=== PATIENT | female | born 1940 | race Two or more races ===

== ENCOUNTER 2018-05-20 11:20 | Emergency (ER) | payer MEDICARE, OTHER, SELFPAY ==
[2018-05-20 11:22] VITALS: BP 151/71; PULSE 64; RESP 16; TEMP 35.6; O2SAT 98; BMI 25.7
--- NOTE | 2018-05-20 11:35 | NURSING ---
NO OLD EKGS
--- NOTE | 2018-05-20 11:51 | ED.RN ---
NO OLD EKG'S IN MUSE
--- NOTE | 2018-05-20 12:13 | EKG12_ITS ---
Test Reason : DIZZINESS Blood Pressure : / mmHG Vent. Rate : 061 BPM Atrial Rate : 061 BPM P-R Int : 118 ms QRS Dur : 086 ms QT Int : 400 ms P-R-T Axes : 007 017 058 degrees QTc Int : 402 ms Normal sinus rhythm Normal ECG Confirmed by HONORIO HODGSON ([id number]), desk editor COOKIE MORENO ([id number]) on 05/24/2018 2:24:53 PM Referred By: TYLER Confirmed By:HONORIO HODGSON
--- NOTE | 2018-05-20 12:15 | ED.VISSUMM ---
- ER Visit Summary Date of Service: 05/20/18 Chief Complaint: Dizziness History of Present Illness: The patient is a 77 F who presents with dizziness for the past 3 days. Patient states this is worse in the morning when she wakes up. Patient states her blood pressure is also elevated in the morning when she wakes up. Patient states her dizziness is worse after she takes her blood pressure medication. Patient states she did have a syncopal episode earlier this week. Patient admits to some nausea but denies any vomiting. Patient admits to some intermittent blurred vision. Patient states her blood pressure medications were changed last week and she believes the dizziness as a result of the new blood pressure medication. Patient has not contacted her primary care physician about this. Physical Examination: Vital signs are stable. Patient is afebrile. Patient is in no acute distress. Oral mucosa is pink and moist. Neck is supple. Trachea is midline. Is no JVD noted. Heart was regular rate and rhythm. Lungs are clear and equal bilateral. There is good respiratory effort noted. Abdomen is soft. Bowel sounds are normal. There is no tenderness noted. Cranial nerves II through XII are intact. There are no focal motor or sensory deficits noted. The remaining physical exam is within normal limits. Test Results: EKG showed sinus rhythm with a rate of 61. There are no acute ST or T-wave changes. CBC, basic metabolic profile, troponin, and urinalysis were obtained and were essentially within normal limits. BUN was slightly elevated at 30. CT scan of the brain was obtained. There is mild atrophy. PA and lateral chest x-ray does not show any acute cardiopulmonary process. Emergency Department Course and Treatment: Patient was given IV fluids here. Patient did have an episode where she sat up and became clammy and diaphoretic. Patient was laid back into bed and started to feel better. Case was discussed with the hospitalist. He recommended stopping the patient's blood pressure medication and following up with her primary care physician in 3-5 days. Patient understands and is agreeable with this plan. Patient wants to go home. Patient and family understood and are agreeable. All questions were answered. Disposition: Discharged home Impression: Dizziness This note was generated with [employer] software. It may contain incorrect words, spelling, and punctuation that were not noted in review of the chart prior to signing ED Disposition - Plan for ED Patient: Disposition: Home or Assisted Living Chief Complaint: Syncope Diagnosis: Dizziness Instructions: ED Dizziness [facility] Referrals: [facility],Out of [Primary Care Provider] -
[2018-05-20 12:25] VITALS: BP 126/32; PULSE 56; RESP 15; O2SAT 97
[2018-05-20 12:36] LABS: Absolute Lymphocyte Count 1.96 X10^3/ul (0.83-4.51); Absolute Neutrophil Count 5.8 X10^3/uL (2.0-7.7); Basophil# 0.01 X10^3/uL; Basophil% 0.1 % (0-1); Eosinophil# 0.14 X10^3/uL; Eosinophils% 1.6 % (0-5); Hematocrit 41.8 % (37-47); Hemoglobin 13.7 g/dl (12.0-15.0); Lymphocyte # 1.96 X10^3/ul (4.0); Mean Corp Hgb Conc 32.8 g/gl (32-36); Mean Corpuscular Hgb 30.1 pg (27.0-32.0); Mean Corpuscular Volume 91.9 fL (81-99); Mean Platelet Vol. 10.2 fl (6.2-12.0); Monocyte# 0.63 X10^3/uL; Monocyte% 7.4 % (0-10); Neutrophil # 5.79 X10^3/uL (2.7-7.7); Neutrophil % 67.8 % (47-70); Platelet Count 226 K/mm3 (150-450); RBC Distribution Width CV 13.2 % (11.6-14.6); RBC Distribution Width SD 43.9 fl (35.1-43.9); Red Blood Count 4.55 M/mm3 (4.2-5.4); White Blood Count 8.5 K/mm3 (4.4-11.0)
[2018-05-20 12:37] LABS: POSITIVE COUNT NO; POSITIVE DIFFERENTIAL NO; POSITIVE MORPHOLOGY NO
[2018-05-20 12:40] LABS: Bedside Glucose 104 mg/dL (70-110)
[2018-05-20 12:52] LABS: Anion Gap 9 (5-15); BUN 30 mg/dL (7-18); BUN/Creat Ratio 31.4 RATIO (10-20); Calcium,Total 9.2 mg/dL (8.5-10.1); Chloride 104 mmol/L (98-107); Creatinine, Serum 0.96 mg/dL (0.55-1.02); EST Glomerular Filtration Rate 60 mL/min (>60); Est Glom Filt Rate - Afr Amer 72 mL/min (>60); Estimated Creatinine Clearance 42.76 ml/min; Glucose 99 mg/dL (74-106); Potassium 4.1 mmol/L (3.5-5.1); Sodium Level 140 mmol/L (136-145)
[2018-05-20 13:10] LABS: Bacteria 0 SEEN /hpf (None Seen); Mucous, Urine 0 SEEN /hpf (<or=2+); Red Blood Cells-Urine 0 SEEN /hpf (0-5); Squamous Epithelial Cells - UA 0 SEEN /hpf (5-10); White Blood Cells 0 SEEN /hpf (0-5)
[2018-05-20 13:13] LABS: Color, Urine Yellow (Yellow); Glucose, Dipstick Normal (Normal); Ketone-Dipstick Negative (Negative); Leukocyte Esterase-Dipstick 25 /ul (Negative); Nitrite-Dipstick Negative (Negative); Occult Blood-Urine Negative /ul (Negative); Protein-Dipstick Negative (Negative); Urine Bilirubin Dipstick Negative (Negative); Urine Clarity Clear (Clear); Urine Urobilinogen Normal (Normal)
[2018-05-20 13:24] VITALS: PULSE 59; RESP 14; O2SAT 97
[2018-05-20 13:44] VITALS: BP 133/53; BP 135/55; BP 147/57; PULSE 54; PULSE 67; PULSE 73
[2018-05-20 14:09] VITALS: BP 111/46; PULSE 62; RESP 9; O2SAT 96
--- NOTE | 2018-05-20 15:56 | NURSING ---
HOSPITALIST FOR DR SANTANA
[2018-05-20 16:41] VITALS: BP 133/50; PULSE 54; RESP 12; O2SAT 98
[2018-05-20] MEDS: 0.9% Normal Saline 1,000 ML 999 ML IV (17:15)
== END 2018-05-20 17:36 | disposition home or self-care (01) ==
PROVIDERS: Emergency Provider Emergency Medicine
DX: R42 Dizziness and giddiness (principal); R68.83 Chills (without fever); H53.8 Other visual disturbances; R11.0 Nausea; I10 Essential (primary) hypertension; Z79.899 Other long term (current) drug therapy
CPT/HCPCS: 70450; 71046; 80048; 81001; 82962; 84484; 85025; 93005; 96360; 99285; J7030

== ENCOUNTER → 2020-09-27 08:24 | Outpatient (CLI) | payer MEDICARE, SELFPAY ==
[2020-09-27 10:10] LABS: Anion Gap 5 (5-15); BUN 18 mg/dL (7-18); BUN/Creat Ratio 17.1 RATIO (10-20); Calcium,Total 9.3 mg/dL (8.5-10.1); Chloride 108 mmol/L (98-107); Cholesterol 295 mg/dL (200); Creatinine, Serum 1.05 mg/dL (0.55-1.02); EST Glomerular Filtration Rate 53 mL/min (>60); Est Glom Filt Rate - Afr Amer 65 mL/min (>60); Glucose 95 mg/dL (74-106); High Density Lipoprotein 60 mg/dL; Potassium 3.8 mmol/L (3.5-5.1); Sodium Level 139 mmol/L (136-145); Triglycerides 236 mg/dL; Very Low Density Lipoprotein 47 mg/dL (5-40)
[2020-09-27 16:07] LABS: Vitamin D,25 Hydroxy 21.5 ng/mL
== END ==
PROVIDERS: PCP Family Medicine; Referring Provider Family Medicine; Visit Provider Family Medicine
DX: Z00.00 Encounter for general adult medical examination without abnormal findings (principal); B89 Unspecified parasitic disease
CPT/HCPCS: 36415; 80048; 80061; 82306; 87177; 87209

== ENCOUNTER → 2020-10-22 13:41 | Outpatient (CLI) | payer MEDICARE, SELFPAY ==
--- NOTE | 2020-10-22 13:45 | BI_ITS ---
MAMMOGRAPHY - BILATERAL SCREENING REASON FOR EXAM: Female, 80 years old. Routine annual screening examination. PERTINENT HISTORY: Non-contributory. TECHNIQUE: Digital bilateral breast ranjeet (3D mammographic acquisition) in the CC and MLO projections. 2-D mediolateral oblique (MLO) and craniocaudad (CC) views of both breasts were obtained. CAD: Full Field Digital Mammography with Computer Added Detection was performed. COMPARISON: Comparison is made with prior outside examination dated 11/25/2016. FINDINGS: Breast Composition: The breasts are heterogeneously dense, which may obscure small masses. There are no dominant masses or suspicious calcifications. No other significant abnormalities are identified. There has been no significant change since the prior study. BI/SCRN MAMM (CAD)W/RANJEET BILAT IMPRESSION: Stable bilateral screening mammogram. Yearly follow-up mammogram recommended. (A) ASSESSMENT CATEGORY: BIRADS Category 1: Negative. A letter regarding these results will be sent to the patient by the facility within 30 days. Approximately 10% of breast cancers are not detected by mammography. A normal mammogram should not delay biopsy of a clinically suspicious abnormality. [id number] Electronically Signed: Anderson Gallegos MD at 13:38 EST , Service support ,
--- NOTE | 2020-10-22 14:09 | BD_ITS ---
STUDY: DUAL ENERGY X-RAY ABSORPTIOMETRY / DXA REASON FOR EXAM: Female, 79 years old. [employer] -- TAKES VITAMINS -- DOES MODERATE AMOUNT OF EXERCISE -- HX OF RIGHT HIP REPLACEMENT -- NELLI OF 2 INCHES TECHNIQUE: Bone Mineral Density (BMD) measurements of lumbar spine and left hip were obtained. COMPARISON: None. FINDINGS: Lumbar Spine (L1-L4): g/cm2 (1.227) / T-score (0.5) / Z-score (2.4) Findings are suggestive of normal bone density with a low fracture risk. Left Femur Total: g/cm2 (0.856) / T-score (-1.2) / Z-score (0.9) Left Femoral Neck: g/cm2 (0.722) / T-score (-2.3) / Z-score (0.0) BD/Dexa Bone Density Study IMPRESSION: The patient is considered osteopenic as outlined below according to World Juan C Organization (WHO) criteria with a moderate fracture risk. Reference Information: The T-score is the number of standard deviations above or below the standard which is normal for young adults at their peak bone mineral density. The World Health Organization (WHO) interprets the T-scores as follows: Above -1 Normal bone density Between -1 and -2.5 Osteopenia Equal to / or below -2.5 Osteoporosis As a practical clinical guideline, osteopenia may be graded as follows: Mild -1 through -1.5 Moderate -1.6 through -2.0 Severe -2.1 through -2.4 The Z-score is the number of standard deviations above or below age-matched controls. A Z-score of less than -1.5 would be considered abnormal. References: 1. NIH Osteoporosis and Related Bone Diseases www osteo.org 2. International Society for Clinical Densitometry www iscd.org 3. National Osteoporosis Foundation www nof.org Electronically Signed: Anderson Gallegos MD at 15:06 EST , Service support ,
== END ==
PROVIDERS: PCP Family Medicine; Referring Provider Family Medicine; Visit Provider Family Medicine
DX: Z12.31 Encounter for screening mammogram for malignant neoplasm of breast (principal); Z91.89 Other specified personal risk factors, not elsewhere classified; Z96.641 Presence of right artificial hip joint; Z78.0 Asymptomatic menopausal state
CPT/HCPCS: 77063; 77067; 77080

== ENCOUNTER 2020-12-18 14:54 | Outpatient (RCR) | payer MEDICARE, SELFPAY ==
[2020-12-18] MEDS: COVID-19 VACC, MRNA(PFIZER)/PF 30 MCG/0.3 ML SYRINGE IM (19:00)
[2021-01-08] MEDS: COVID-19 VACC, MRNA(PFIZER)/PF 30 MCG/0.3 ML SYRINGE IM (11:00)
== END 2021-02-18 23:59 ==
LOC: IMMUN 14:54
PROVIDERS: PCP Family Medicine; Referring Provider Family Medicine; Visit Provider Family Medicine
DX: Z23 Encounter for immunization (principal)
CPT/HCPCS: 0001A; 0002A; 91300

== ENCOUNTER → 2020-12-23 16:27 | Outpatient (CLI) | payer MEDICARE, SELFPAY ==
[2020-12-23 18:02] LABS: Absolute Lymphocyte Count 1.45 X10^3/uL (0.83-4.51); Absolute Neutrophil Count 3.7 X10^3/uL (2.0-7.7); Basophil# 0.01 X10^3/uL; Basophil% 0.2 % (0-1); Eosinophils% 1.8 % (0-5); Hematocrit 38.9 % (37-47); Hemoglobin 12.4 g/dL (12.0-15.0); Lymphocyte # 1.45 X10^3/ul (4.0); Lymphocyte % 25.8 % (19-41); Mean Corp Hgb Conc 31.9 g/dL (32-36); Mean Platelet Vol. 10.7 fl (6.2-12.0); Monocyte# 0.38 X10^3/uL; Monocyte% 6.7 % (0-10); NRBC Flagged by Analyzer 0 % (0-5); Neutrophil # 3.68 X10^3/uL (2.7-7.7); Neutrophil % 65.3 % (47-70); Platelet Count 234 K/mm3 (150-450); RBC Distribution Width CV 12.7 % (11.6-14.6); Red Blood Count 4.14 M/mm3 (4.2-5.4); White Blood Count 5.6 K/mm3 (4.4-11.0)
[2020-12-23 18:28] LABS: BNP,B-Type NATRIURETIC PEPTIDE 78.5 pg/mL (0-100)
[2020-12-23 18:31] LABS: Anion Gap 5 (5-15); BUN 25 mg/dL (7-18); BUN/Creat Ratio 23.6 RATIO (10-20); Calcium,Total 9.3 mg/dL (8.5-10.1); Chloride 104 mmol/L (98-107); Creatinine, Serum 1.06 mg/dL (0.55-1.02); EST Glomerular Filtration Rate 53 mL/min (>60); Est Glom Filt Rate - Afr Amer 64 mL/min (>60); Glucose 161 mg/dL (74-106); Potassium 3.8 mmol/L (3.5-5.1); Sodium Level 139 mmol/L (136-145)
== END ==
PROVIDERS: PCP Family Medicine; Visit Provider Family Medicine
DX: R06.02 Shortness of breath (principal)
CPT/HCPCS: 36415; 80048; 83880; 85025

== ENCOUNTER → 2021-01-17 06:35 | Outpatient (CLI) | payer MEDICARE, SELFPAY ==
--- NOTE | 2021-01-17 07:01 | ECHOD_ITS ---
Version 2 Reason For Study: SOB Procedure This was a 2D Doppler, Color Flow transthoracic echocardiogram. Exam performed in department. Left Ventricle Normal LV size. Left ventricular systolic function is normal. The estimated ejection fraction is 60 %. Stage 1 diastolic dysfunction. No regional wall motion abnormalities noted. Right Ventricle Normal RV size. Normal systolic function. Atria The left atrium is mildly enlarged. Normal right atrium. Mitral Valve There is mild mitral annular calcification. Mild (1+) eccentric mitral valve insufficiency. Tricuspid Valve Normal tricuspid valve. Mild (1+) tricuspid valve insufficiency. Pulmonary artery systolic pressure is 28 mmHg. Aortic Valve Trisinus/trileaflet aortic valve. Mild (1+) aortic valve insufficiency. Great Vessels Normal aortic root. The pulmonary artery is normal size. Normal inferior vena cava. Pericardium/Pleural No pericardial effusion. MMode/2D Measurements & Calculations LVIDd: 4.0 cm IVSd: 1.3 cm LA dimension: 3.8 cm LVIDs: 2.0 cm LVPWd: 0.99 cm RVDd: 3.5 cm FS: 49.5 % LAV(MOD-bp): 55.6 ml LA A4 area: 21.1 cm2 RA A4 area: 11.3 cm2 LAV(MOD-bp) Indexed: 30.1 ml/m2 LAV(MOD-sp2): 51.0 ml LAV(MOD-sp4): 62.7 ml Time Measurements MV dec time: 0.24 sec Doppler Measurements & Calculations MV E max jitendra: 96.5 cm/sec Lat Peak E' Jitendra: 7.5 cm/sec Med Peak E' Jitendra: 4.8 cm/sec MV A max jitendra: 109.5 cm/sec E/E' lat: 12.9 E/E' med: 20.2 MV E/A: 0.88 MV V2 max: 118.4 cm/sec MV P1/2t max jitendra: 93.2 cm/sec Ao V2 max: 144.9 cm/sec MV max P.6 mmHg MV P1/2t: 74.7 msec Ao max P.4 mmHg MV V2 mean: 49.2 cm/sec MV mean P.3 mmHg MV dec slope: 365.2 cm/sec2 MV V2 VTI: 34.5 cm MVA(P1/2t): 2.9 cm2 AI max jitendra: 440.6 cm/sec LV V1 max: 97.6 cm/sec PA V2 max: 95.1 cm/sec AI max P.7 mmHg LV V1 max P.8 mmHg AI dec slope: 222.7 cm/sec2 AI P1/2t: 579.6 msec TR max jitendra: 246.0 cm/sec TR max P.2 mmHg ECHO/Echo Complete Interpretation Summary Normal LV size. Left ventricular systolic function is normal. The estimated ejection fraction is 60 %. The left atrium is mildly enlarged. Mild (1+) eccentric mitral valve insufficiency. Pulmonary artery systolic pressure is 28 mmHg. Mild (1+) aortic valve insufficiency. Stage 1 diastolic dysfunction. Ordering Physician: Geo Gonzalez Referring Physician: Geo Gonzalez Performed By: Ike Mark RCS
--- NOTE | 2021-01-17 12:41 | STRESSREP ---
Stress Test Report Exercise myocardial perfusion stress test. 80-year-old lady with a history of chest pain. Stress protocol: Resting EKG demonstrates sinus bradycardia with a rate of 57 bpm normal intervals are noted resting blood pressure is 152/72 mmHg. The patient exercised according to the regular Orlin protocol for total duration of 4 minutes the patient completed stage II of the Orlin protocol. The maximum heart rate attained was 144 bpm which was 104% of maximum predicted heart rate the maximum workload was 5.8 metabolic equivalents. At rest there were no ST or T wave changes noted to suggest ischemia and at peak exercise upsloping ST changes were noted with did not meet the criteria for ischemia. The test was terminated due to leg discomfort and shortness of breath. The peak blood pressure was 180/50 mmHg. Myocardial perfusion protocol. 11.8 mCi of technetium 99m sestamibi was injected at rest. The patient exercised according to the regular Orlin protocol. At peak exercise 36.0 mCi of technetium 99m sestamibi was injected stress images were obtained stress and rest images were reconstructed and compared in the short axis vertical long and horizontal long axis. Gated images were also obtained. Perfusion SPECT analysis: Review of the stress images demonstrated normal uptake of tracer noted in all areas of the myocardium. The resting images similarly demonstrated normal uptake of tracer noted in all areas of the myocardium. No areas of reversibility are noted to suggest ischemia and no previous infarct is noted. Gated SPECT analysis: The gated ejection fraction is 60%. Conclusion: Normal exercise myocardial perfusion stress test at a low to moderate workload. Preserved ejection fraction.
== END ==
PROVIDERS: PCP Family Medicine; Visit Provider Family Medicine
DX: R06.02 Shortness of breath (principal)
CPT/HCPCS: 78452; 93017; 93306; A9500; A4216

== ENCOUNTER → 2021-06-18 15:45 | Outpatient (CLI) | payer MEDICARE, SELFPAY ==
--- NOTE | 2021-06-18 15:48 | RAD_ITS ---
STUDY: X-RAY - LEFT KNEE REASON FOR EXAM: Female, 80 years old. Pain. TECHNIQUE: 4 view(s) of the knee. COMPARISON: None. FINDINGS: Normal visualized distal femur. Normal visualized proximal tibia and fibula. There is arthrosis of the proximal tibiofibular articulation. There is no acute fracture, dislocation or destructive osseous pathology. There is severe degenerative arthrosis of the medial femorotibial compartment with severe joint space narrowing. There is mild degenerative arthrosis of the lateral femorotibial compartment. There is moderate degenerative arthrosis of the patellofemoral articulation. There is no demonstrated joint effusion. The soft tissue structures are unremarkable. RAD/Knee 4 or More Views IMPRESSION: Degenerative arthrosis. There is no fracture or dislocation. Electronically Signed: Saulo Patterson DO at 16:39 EDT Tel [phone], Service support ,
== END ==
PROVIDERS: PCP Family Medicine; Referring Provider Family Medicine; Visit Provider Family Medicine
DX: M25.562 Pain in left knee (principal)
CPT/HCPCS: 73564

== ENCOUNTER 2021-11-19 11:44 | Outpatient (CLI) | payer MEDICARE, SELFPAY ==
--- NOTE | 2021-11-19 11:53 | RAD_ITS ---
History: SCIATICA EXAMINATION/TECHNIQUE: XR Spine Lumbar Min 4 Views: COMPARISON: None FINDINGS: VERTEBRAE: Preserved vertebral body height. No fracture. No spondylolisthesis. Degenerative changes of the posterior elements. Degenerative dextrocurvature of the upper lumbar spine. DISCS: Degenerative changes are noted. INCLUDED ABDOMEN: Included bowel gas pattern is non-obstructive. Moderate atherosclerotic changes of the abdominal aorta. RAD/L/S Spine Min 4 Views IMPRESSION: Degenerative changes. No acute fracture or spondylolisthesis. at 0233 Reported and signed by: Gerald Michelle MD Electronically Signed: Gerald Michelle MD at 2:32 EST ,
== END 2021-11-19 23:59 | disposition home or self-care (01) ==
LOC: MTRAD 11:47
PROVIDERS: PCP Family Medicine; Referring Provider Family Medicine; Visit Provider Family Medicine
DX: M54.30 Sciatica, unspecified side (principal)
CPT/HCPCS: 72110

== ENCOUNTER 2021-12-31 10:00 | Outpatient (RCR) | payer MEDICARE, SELFPAY ==
--- NOTE | 2021-11-28 08:55 | HP.PTEVAL ---
Patient's Visit Information RADHA PHELPS is a 81 year old F referred to Physical Therapy by Dr. Geo Gonzalez MD with a diagnosis of L knee pain and sciatica.. Date of Evaluation: 11/28/21 Physical Therapist: Devon Lugo, DPT, OCS, CSCS - Visit Plan Frequency: 3x /Week Duration: 2-4 Weeks Plan: 3x/week for 2-4 weeks for. 1. STM and DTR to L piriformis and gluteal area. 2. stretch L piriformis and glutes and ITB. 3. strengthen L hip stabs and NS strengthening. May use TENS and Mh if needed. - Subjective L leg pain starts in back and goes down to lower lateral leg. Knee really hurts this am. This has been going on for about a month and is insidious. Has had injections in knee prior which helped at first and then has not had relief from number two about 15 days ago. The back pain is more familiar and has had it for 20 yrs. Fell a month ago on steps walking in dark and missed a step and rolled down steps. Knee pain started shortly after.Has burning in back of calf at t imes. Feels like balance is OK. Sleep is up alot at night but that is not unusual for her lately. Not employed. Spends day with housework. Sweeper and standing make her pain worse. - Pain L knee Pain Intensity (Out of 10): 1 Pain Intensity Range: 0, 5 LBP Pain Intensity (Out of 10): 1 Pain Intensity Range: 0, 3 - Objective Walks with slightly diminished L WB time but I. Trasnfers I, steps show weakness in L hip stabs causing need to hold and pull on rail L side. Sits with weight off L hip leaning R. L GT, and Piriformis and glut max tender, not on R. LB AROM ext mod limited and painful , flexion min limited, SB min limited and L painful in hip. Hip PROm WFL B slight pain L with ARTI, not FADDIR. reflexes 2/3 patella and achilles B. Sensation LE WNL to gross light touch B. Strenngth is abduction and extension 3/5 L and 3+ R. flexion 4- B. Pain with abd and slightly with extension L. knee strength 4- R flex and ext, L flexion 3+ and ext 4-. Ankle strength 4/5 B. - SLR and - SLUMP but tension on posterior fascia causes pain on L. - Balance/Special Test Scores Functional Gait Assessment Score: 22 % Disability: 26.6700 Lower Extremity Functional Score: 35 - Goals Goal 1:: Sleep without waking at night with pain Goal Time Frame: 2-4 Weeks Goal 2:: Steps pushing up with L without rail and gait without deviations. Goal Time Frame: 2-4 Weeks Goal 3:: Patoient feel 90% b galdino in pain in hip and knee to 1/10 at worst. Goal Time Frame: 2-4 Weeks Goal 4:: LEFS 55/80 Goal Time Frame: 2-4 Weeks Goal 5:: Back to [employer] without increased pain Goal Time Frame: 2-4 Weeks - Rehabilitation Potential Physical Therapy Diagnosis: Pain in L LE possibly from fall and limiting mobility. Rehabilitation Potential: Fair - Anticipated Interventions Patient/Client Instruction: Educate patient on: Condition, Plan of Care For the Purpose of:: To decrease pain, To increase ROM, To increase tolerance to activity/condition/position, To improve ability of physical actions for home/community/work/leisure Therapeutic Exercise to Include: Strength training, Flexibilty training, Gait and locomotor training, Passive ROM, Active ROM For the Purpose of:: To decrease pain, To increase ROM, To improve muscle performance and motor function, To increase tolerance to activity/condition/position, To improve ability of physical actions for home/community/work/leisure Manual Therapy Techniques to Include: Mobilization, Passive ROM, Soft tissue mobilization For the Purpose of:: To improve nutrient delivery to tissue, To improve muscle performance and motor function, To increase tolerance to activity/condition/position TENS: Yes Thermo therapy (hot pack): Yes For the Purpose of:: To decrease pain Thank you for the opportunity to evaluate your patient. For Medicare and Medicare HMO plans, please review the plan of care and approve it. It will need to be FAXED BACK to us at [phone] for Medicare purposes. For Medicare only, by signing this I certify the plan of care. Please let me know if there are questions or concerns regarding this plan of care. Physician Signature: Date:
--- NOTE | 2021-12-31 11:01 | HP.PTDCSUM_ITS ---
It has been my pleasure to treat RADHA PHELPS referred by Dr. Geo Gonzalez MD, with the diagnosis of L knee pain and sciatica. for a total of 11 visit(s). Discharge Date: Please see the following information for a summary of their discharge status. Subjective: Pt reports minimal improvements at this time L knee Pain Intensity (Out of 10): 8 LBP Pain Intensity (Out of 10): 6 % Improvement: 5 Objective/Function: L knee pain ranges from 5-8/10. LBP ranges from 0-6/10. all this still results in sleep difficulty. L knee pain still limits patients ability to negotiate stairs at this time. LEFS 18/80. Pt is back to [employer] class but continues to experience increased pain Goal 1:: Sleep without waking at night with pain Goal Progress: Not Progressing Goal 2:: Steps pushing up with L without rail and gait without deviations. Goal Progress: Not Progressing Goal 3:: Patoient feel 90% b galdino in pain in hip and knee to 1/10 at worst. Goal Progress: Not Progressing Goal 4:: LEFS 55/80 Goal Progress: Not Progressing Goal 5:: Back to [employer] without increased pain Goal Progress: Progressing Plan: Discontinue and RTD If there are questions or concerns regarding this patient's physical therapy, please feel free to call me at [phone]. Thank you for the referral of this patient. Sincerely, Gerald Alegre, PT, ATC Balance/Gait/Functional tests - Balance/Special Test Scores Functional Gait Assessment Score: 22 % Disability: 26.6700 Lower Extremity Functional Score: 18
== END 2021-12-31 12:21 | disposition home or self-care (01) ==
LOC: PT 10:00
PROVIDERS: PCP Family Medicine; Referring Provider Family Medicine; Visit Provider Family Medicine
DX: M25.562 Pain in left knee (principal); M54.32 Sciatica, left side
CPT/HCPCS: 97014; 97110; 97140; 97162; 97164; G0283

== ENCOUNTER → 2022-02-06 | Outpatient (CLI) | payer MEDICARE, SELFPAY ==
--- NOTE | 2022-02-06 14:00 | ART_ITS ---
Reason For Study: LEG PAIN Procedure A bilateral lower extremity continuous wave Doppler with analog waveform analysis,segmental pressures,and ankle brachial indexes with exercise. Left Segmental Pressures Left brachial= 161mmHg. Left posterior tibial artery = 194mmHg. Left dorsalis pedis artery = 188mmHg. The left dorsalis pedis waveforms are triphasic. The left posterior tibial artery waveforms are triphasic. Right Segmental Pressures Right brachial= 166mmHg. Right posterior tibial artery = 203mmHg. Right dorsalis pedis artery = 194mmHg. The right dorsalis pedis waveforms are triphasic. The right posterior tibial artery waveforms are triphasic. Indices The right ankle brachial index by the posterior tibial artery is 1.22. The right ankle brachial index by the dorsalis pedis is 1.17. The right post exercise ankle brachial index is 1.13. The left ankle brachial index by the posterior tibial artery is 1.17. The left ankle brachial index by the dorsalis pedis is 1.13. The left post exercise ankle brachial index is 1.19. VL/Lower Ext Art Exam w/ Exercise Interpretation Summary Triphasic Doppler waveforms are noted at ankle level bilaterally. Resting ankle -brachial indices are normal bilaterally. The patient was ambulated for 3 minutes, following which an kle pressures augmented bilaterally, a normal physiological response. There is no evidence of significant arterial occlusive disease in the lower ext remities bilaterally. Ordering Physician: Geo Gonzalez Referring Physician: Geo Gonzalez Performed By: ABDIAS MONTANO
== END | disposition home or self-care (01) ==
PROVIDERS: PCP Family Medicine; Referring Provider Family Medicine; Visit Provider Family Medicine
DX: M79.606 Pain in leg, unspecified (principal); I79.8 Other disorders of arteries, arterioles and capillaries in diseases classified elsewhere
CPT/HCPCS: 93924

== ENCOUNTER → 2022-11-16 | Outpatient (CLI) | payer MEDICARE, SELFPAY ==
[2022-11-16 17:36] LABS: Absolute Lymphocyte Count 1.31 X10^3/uL (0.83-4.51); Basophil# 0.01 X10^3/uL; Basophil% 0.2 % (0-1); Eosinophils% 2.1 % (0-5); Hematocrit 39.1 % (37-47); Hemoglobin 12.7 g/dL (12.0-15.0); Lymphocyte # 1.31 X10^3/ul (0.83-4.51); Mean Corp Hgb Conc 32.5 g/dL (32-36); Mean Corpuscular Hgb 30.3 pg (27.0-32.0); Mean Corpuscular Volume 93.3 fL (81-99); Mean Platelet Vol. 10.7 fl (6.2-12.0); Monocyte# 0.42 X10^3/uL; Monocyte% 8.6 % (0-10); NRBC Flagged by Analyzer 0 % (0-5); Neutrophil # 3.01 X10^3/uL (2.7-7.7); Neutrophil % 61.9 % (47-70); Platelet Count 242 K/mm3 (150-450); RBC Distribution Width CV 12.3 % (11.6-14.6); RBC Distribution Width SD 42.2 fl (35.1-43.9); Red Blood Count 4.19 M/mm3 (4.2-5.4); White Blood Count 4.9 K/mm3 (4.4-11.0)
[2022-11-16 18:02] LABS: Anion Gap 6 (5-15); BUN 19 mg/dL (7-18); BUN/Creat Ratio 18.1 RATIO (10-20); Calcium,Total 9.8 mg/dL (8.5-10.1); Chloride 103 mmol/L (98-107); Cholesterol 257 mg/dL (200); Creatinine, Serum 1.05 mg/dL (0.55-1.02); EST Glomerular Filtration Rate 53 mL/min (>60); Est Glom Filt Rate - Afr Amer 64 mL/min (>60); Glucose 137 mg/dL (74-106); High Density Lipoprotein 42 mg/dL; Sodium Level 139 mmol/L (136-145); Triglycerides 309 mg/dL; Very Low Density Lipoprotein 62 mg/dL (5-40)
[2022-11-16 18:12] LABS: Vitamin D,25 Hydroxy 32.5 ng/mL
== END | disposition home or self-care (01) ==
LOC: MFPLAB 15:10
PROVIDERS: PCP Family Medicine; Visit Provider Family Medicine
DX: Z00.00 Encounter for general adult medical examination without abnormal findings (principal); E55.9 Vitamin D deficiency, unspecified; R53.81 Other malaise; I10 Essential (primary) hypertension; Z79.899 Other long term (current) drug therapy
CPT/HCPCS: 36415; 80048; 80061; 82306; 85025

== ENCOUNTER → 2022-12-02 | Outpatient (CLI) | payer MEDICARE, SELFPAY ==
--- NOTE | 2022-12-02 10:56 | BD_ITS ---
STUDY: DUAL ENERGY X-RAY ABSORPTIOMETRY / DXA REASON FOR EXAM: Female, 82 years old. [id number] TECHNIQUE: Bone Mineral Density (BMD) measurements of lumbar spine and left hip were obtained. COMPARISON: Comparison is made with prior study of October 22, 2020. FINDINGS: Lumbar Spine (L1-L4): g/cm2 (1.206) / T-score (1.4) / Z-score (4.3) Findings are suggestive of normal bone density with a low fracture risk. Left Femur Total: g/cm2 (0.790) / T-score (-1.3) / Z-score (1.0) Left Femoral Neck: g/cm2 (0.612) / T-score (-2.2) / Z-score (0.2) The T-Scores on the most recent prior examination were: Lumbar Spine (L1-L4): There has been improvement of bone density since the previous examination. Left Femur Total: which represents a worsening of 0.5%. BD/Dexa Bone Density Study IMPRESSION: The patient is considered osteopenic as outlined below according to World Juan C Organization (WHO) criteria with a high fracture risk. There has been worsening of bone density since the previous examination. Reference Information: The T-score is the number of standard deviations above or below the standard which is normal for young adults at their peak bone mineral density. The World Health Organization (WHO) interprets the T-scores as follows: Above -1 Normal bone density Between -1 and -2.5 Osteopenia Equal to / or below -2.5 Osteoporosis As a practical clinical guideline, osteopenia may be graded as follows: Mild -1 through -1.5 Moderate -1.6 through -2.0 Severe -2.1 through -2.4 The Z-score is the number of standard deviations above or below age-matched controls. A Z-score of less than -1.5 would be considered abnormal. References: 1. NIH Osteoporosis and Related Bone Diseases www osteo.org 2. International Society for Clinical Densitometry www iscd.org 3. National Osteoporosis Foundation www nof.org Electronically Signed: Anderson Gallegos MD at 15:06 EDT ,
== END | disposition home or self-care (01) ==
PROVIDERS: PCP Family Medicine; Visit Provider Family Medicine
DX: Z00.00 Encounter for general adult medical examination without abnormal findings (principal); Z78.0 Asymptomatic menopausal state
CPT/HCPCS: 77080

== ENCOUNTER → 2023-02-26 | Outpatient (CLI) | payer MEDICARE, SELFPAY ==
[2023-02-26 12:46] LABS: Anion Gap 7 (5-15); BUN 21 mg/dL (7-18); BUN/Creat Ratio 22.2 RATIO (10-20); Calcium,Total 9.7 mg/dL (8.5-10.1); Chloride 102 mmol/L (98-107); Cholesterol 205 mg/dL (200); Creatinine, Serum 0.95 mg/dL (0.55-1.02); EST Glomerular Filtration Rate 60 mL/min (>60); Est Glom Filt Rate - Afr Amer 72 mL/min (>60); Glucose 101 mg/dL (74-106); High Density Lipoprotein 54 mg/dL; Potassium 4.3 mmol/L (3.5-5.1); Sodium Level 135 mmol/L (136-145); Triglycerides 218 mg/dL; Very Low Density Lipoprotein 44 mg/dL (5-40)
== END | disposition home or self-care (01) ==
LOC: MFPLAB 11:15
PROVIDERS: PCP Family Medicine; Visit Provider Family Medicine
DX: I10 Essential (primary) hypertension (principal)
CPT/HCPCS: 36415; 80048; 80061

== ENCOUNTER 2023-04-09 10:00 | Outpatient (RCR) | payer MEDICARE, SELFPAY ==
--- NOTE | 2023-03-08 10:53 | HP.PTEVAL ---
Patient's Visit Information RADHA PHELPS is a 82 year old F referred to Physical Therapy by GUSTABO LANDA with a diagnosis of L knee stiffness s/p TKA. Date of Evaluation: 03/08/23 Physical Therapist: Devon Lugo DPT, OCS, CSCS - Visit Plan Frequency: 2-3x /Week Duration: 2-4 Weeks Plan: 2-3x/week for 2-4 week to work on. rollout L quad and HS, stretch quad and HS, patellar mobs and PROM L knee flexion progressing home exercises of knee flexion. knee flexion mobs. MH as needed - Subjective Had a L TKA 12/28/22. Doctor said she is doing well but needs a couple weeks of PT. Had home PT and then been doing ex at home. Finishe amonth ago. No real pain. She is stiff in the knee. Activities : pretty normal for her. No steps or problems getting out of chair at home. Sleep is not great, feels stiff in knee but not sure if that is why. Not employed. Basic ADLs are done without a problem. No problem in the shower. 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 Doctor wants to focus on knee ROM. - Objective Walks with very slight L antalgia into PT I. Steps with either foot requiring rail and circumducting L leg to get it up to the next step adn truning sideways to descend with L. L knee 0-88 AROM and 0-90 PROM. Stiffness obvious in L patella vs R especially distal movement. HS tight B moderately, hard to tell on L quad due to knee stiffness. max flexion knee self limited by patient due to pain. ankle and hip aROM WFL and strength at 4/5. knee strength L quad 3+ and HS 4- and R sided at 4 . Sensation LE WNL to gross light touch. Overall very stiff L knee which will limit future options for transfer and steps if required with L. - Balance/Special Test Scores Functional Gait Assessment Score: 27 % Disability: 10.0000 Lower Extremity Functional Score: 48 - Goals Goal 1:: 0-105 AROM to improve stair and chair trasnfers. Goal Time Frame: 2-4 Weeks Goal 2:: Patient I in management of condition. Goal Time Frame: 2-4 Weeks - Rehabilitation Potential Physical Therapy Diagnosis: L knee stiffness limiting stair and trasnfers with L. Rehabilitation Potential: Questionable - Anticipated Interventions Patient/Client Instruction: Educate patient on: Condition, Plan of Care For the Purpose of:: To decrease pain, To increase ROM, To improve muscle performance and motor function, To increase tolerance to activity/condition/position, To improve ability of physical actions for home/community/work/leisure, To improve gait and locomotor functions Therapeutic Exercise to Include: Flexibilty training, Gait and locomotor training, Passive ROM, Active ROM For the Purpose of:: To decrease pain, To increase ROM, To improve nutrient delivery to tissue, To increase tolerance to activity/condition/position Manual Therapy Techniques to Include: Mobilization, Passive ROM, Soft tissue mobilization For the Purpose of:: To increase ROM Thermo therapy (hot pack): Yes For the Purpose of:: To increase ROM Thank you for the opportunity to evaluate your patient. For Medicare and Medicare HMO plans, please review the plan of care and approve it. It will need to be FAXED BACK to us at [phone] for Medicare purposes. For Medicare only, by signing this I certify the plan of care. Please let me know if there are questions or concerns regarding this plan of care. Physician Signature: Date:
--- NOTE | 2023-05-24 07:19 | HP.PTDCSUM ---
Discharge Summary D/C summary: It has been my pleasure to treat RADHA PHELPS referred by GUSTABO LANDA, with the diagnosis of L knee stiffness s/p TKA for a total of 10 visit(s). Discharge Date: Please see the following information for a summary of their discharge status. Subjective Subjective: Pt states she is doing well - no pain, but states she has more muscle soreness in both legs. Mostly compliant with HEP. States she wants to make today her last session. Overall Improvement % Improvement: 100 Objective Objective/Function: Pt conts to do very well in therapy. States she has no ADL or functional limitations because of her knee. States she wants to make today her last session. Reviewed what she is doing at home and advised to cont. LEFS filled out, % improvement captured (100%), and final ROM taken (0-121 degrees). Goals Goal 1:: 0-105 AROM to improve stair and chair trasnfers. Goal 2:: Patient I in management of condition. Plan Plan: Pt wishes to d/c at this time. Reviewed what she is doing at home and advised to cont. Plans to cont her gym program here 3x/week. LEFS filled out, % improvement captured (100%), and final ROM taken (0-121 degrees). D/C Information d/c sentence: If there are questions or concerns regarding this patient's physical therapy, please feel free to call me at [phone]. Thank you for the referral of this patient. Sincerely, Devon Lugo, DPT, OCS, CSCS Balance/Gait/Functional tests Balance/Special Test Scores Functional Gait Assessment Score: 27 % Disability: 10.0000 Lower Extremity Functional Score: 60 Improvement % Improvement: 100
== END 2023-04-09 19:00 | disposition home or self-care (01) ==
LOC: PT 10:00
PROVIDERS: PCP Family Medicine
DX: M25.662 Stiffness of left knee, not elsewhere classified (principal)
CPT/HCPCS: 97110; 97140; 97161

== ENCOUNTER 2023-04-09 16:57 | Emergency (ER) | payer MEDICARE, SELFPAY ==
[2023-04-09 16:58] VITALS: BP 192/80; PULSE 82; RESP 19; TEMP 36.2; O2SAT 97; BMI 28.7
--- NOTE | 2023-04-09 17:20 | ED.RN ---
THIS RN ATTEMPTED TO PLACE C-COLLAR ON PT ALONG WITH Ninoska MEDINA RN. PT STARTED SCREAMING STATING GET THIS OFF OF ME. PT THEN REFUSED C-COLLAR. THIS RN EDUCATED PT THAT NOT PUTTING C-COLLAR ON WOULD INCREASE RISK OF PERMANENT DAMAGE. PT STILL REFUSES.
[2023-04-09 17:28] VITALS: TEMP 36.4; O2SAT 96
[2023-04-09 17:33] VITALS: BP 171/64; PULSE 81; RESP 18; O2SAT 94
--- NOTE | 2023-04-09 17:35 | CT_ITS ---
INDICATION: Neck trauma EXAMINATION: CT CERVICAL SPINE - CT Spine Cervical W/O Contrast Injection TECHNIQUE: Helically acquired images were obtained of the cervical spine. 2D reformatted images were reviewed. A radiation dose optimization technique was used for this scan. IV Contrast dosage and agent: None. RADIATION DOSAGE (If Supplied By Facility): CTDIvol = ( 21.29 ) mGy, DLP = ( 431.88 ) mGycm COMPARISON: None FINDINGS: VERTEBRAE: No fracture or traumatic subluxation. No discrete lytic or blastic abnormality. Normal alignment. Normal craniocervical junction and cervicothoracic junction. DISCS and SPINAL CANAL: Mild degenerative disc and endplate disease throughout the cervical spine. No critical stenosis. NECK SOFT TISSUES: No prevertebral soft tissue swelling. There is no cervical adenopathy. LUNG APICES: Clear. CT/Spine Cervical without Contras IMPRESSION: No evidence of acute cervical spinal fracture or spondylolisthesis. Electronically Signed: Geo Luis MD at 18:21 EDT ,
--- NOTE | 2023-04-09 17:35 | CT_ITS ---
INDICATION: Head trauma EXAMINATION: CT BRAIN - CT Head or Brain W/O Contrast Injection TECHNIQUE: Multiple axial images were obtained of the head without intravenous contrast. A radiation dose optimization technique was used for this scan. IV Contrast dosage and agent: None. RADIATION DOSAGE (If Supplied By Facility): CTDIvol = ( 44.99 ) mGy, DLP = ( 779.24 ) mGycm COMPARISON: None FINDINGS: BRAIN PARENCHYMA: No intra- or extra-axial hemorrhage. No evidence of acute infarct. No intracranial mass or mass effect. There is preservation of the wilkinson/white matter interface. Posterior fossa structures are unremarkable. CSF SPACES: Appropriate for age. No hydrocephalus. Basal cisterns are patent. CALVARIUM, SKULL BASE, PARANASAL SINUSES AND MASTOID AIR CELLS: Right parieto-occipital scalp hematoma. Clear. No discrete lytic or blastic abnormalities. ORBITS: Right ocular lens replacement. Both globes, extraocular muscles, optic nerves and retrobulbar fat appear otherwise unremarkable. ASPECTS Score for Acute Strokes: 10 CT/Brain/Head without Contrast IMPRESSION: Right parieto-occipital scalp hematoma. No acute abnormal intracranial finding. Electronically Signed: Geo Luis MD at 18:16 EDT ,
--- NOTE | 2023-04-09 17:36 | EX.ED.GENINJ ---
HPI History of Present Illness Chief Complaint: Head Injury Informant: patient and family Narrative Narrative: Patient is 82-year-old female with history of hypertension, hyperlipidemia and left knee replacement 2 months ago presenting with a head injury. Patient was taking a nap when she must of rolled out of bed per her daughter and struck her head on the nightstand. She is complaining of pain and swelling to the back of her head as well as some neck pain/shoulder pain. Patient states the fall woke her up and does not think she loss of conscious. Daughter just arrived to the house when this happened. There was no prolonged immobilization she was able to get herself up. She is not on any blood thinners. Daughter does note she is a little unsteady when she got up. She brought her to the emergency room for further evaluation. Patient not have any history of any prior head injuries. Put ice on it prior to arrival but did not take anything for pain. Not complain of any vision changes, numbness or tingling. No speech changes reported. Patient is hard of hearing. No other complaints or concerns at this time. [facility] Medical History Back pain Knee pain Home Medications atorvastatin 20 mg tablet 20 mg PO QHS 05/20/18 [History Last Taken 05/19/18] losartan 100 mg-hydrochlorothiazide 25 mg tablet 1 ea PO DAILY 05/20/18 [History Last Taken 05/20/18] Allergy/AdvReac Type Severity Reaction Status Date / Time codeine AdvReac Nausea/Vom/ Verified 04/09/23 16:58 Diarrhea Social History Smoking Status: Never smoker ROS ROS ED Constitutional Constitutional ED: Denies chills or fever(s) Eyes Eyes: Denies blurry vision or change in vision ENT ENT ED: Denies ear pain or rhinorrhea Gastrointestinal Gastrointestinal: Denies nausea or vomiting Musculoskeletal Musculoskeletal: Reports neck pain and other Details: right shoulder pain Integumentary Reports Abrasions Neurologic Neurologic: Reports headache(s); Denies paresthesias or weakness Psychiatric Psychiatric: Denies anxiety Hematologic/Lymphatic Hematologic/Lymphatic: Denies easy bleeding or easy bruising EXAM Physical Exam Const Vital Signs: 04/09/23 16:58 04/09/23 17:28 04/09/23 17:33 Temperature 97.1 F L 97.5 F L Temperature Source Temporal Pulse Rate 82 81 Respiratory Rate 19 H 18 Respiratory Effort Normal Non-Labored Respiratory Depth Normal Respiratory Pattern Normal Blood Pressure 192/80 H 171/64 H Blood Pressure Mean 117 99 Pulse Ox 97 96 94 Oxygen Delivery Method Room Air Room Air Room Air Positive well nourished and well developed General Appearance ED: well developed and NAD HEENT Reports TM's clear HEENT Narrative: No signs of facial trauma. No hemotympanum or signs of a basilar skull fracture. Patient does have 2 areas of hematoma and tenderness to the occipital scalp. There is no active bleeding or abrasion but there is some associated ecchymosis. Nose: Negative for septum abnormal Tympanic Membrane ED: Yes TM's clear Eyes PERRL and EOMs intact bilaterally Neck full ROM Neck Narrative: No midline tenderness. Mild pain with range of motion. Patient refusing c-collar. Tenderness palpation over the right trapezius region Chest Wall inspection of chest normal Resp normal respiratory effort and clear to auscultation bilaterally Cardio regular rhythm and no murmurs Rate: regular rate GI normal to inspection, nondistended, normoactive bowel sounds Back/Spine normal to inspection and no thoracic nor lumbar tenderness Thoracic Spine / Upper Back: Negative for thoracic spinal tenderness Extremity normal to inspection and full ROM General Extremety ED: Negative for deformity or tenderness General Extremity: Negative for deformity Neuro oriented x3, CN's II-XII intact bilaterally, no focal motor deficits and no sensory deficits noted [place] Coma Scale: document GCS findings Spontaneous Obeys Commands Oriented 15 Sensorium / Orientation: alert Skin Skin Narrative: No active bleeding. 2 small areas of ecchymosis to the posterior scalp MDM MDM MDM Narrative Medical decision making narrative: Patient is evaluated for closed head injury after a fall out of bed. She has no focal neurologic deficits. She does have ecchymosis and cephalhematoma to the parietal occipital scalp on exam. She is complaining of some neck pain and it seems to be more muscle skeletal however due to her age and her significant head injury will obtain a CT of the brain as well as the cervical spine. Patient is given Tylenol and ice for pain control. Patient is able to ambulate in the emergency room to the bathroom. CT of the brain shows right parietal occipital scalp hematoma but there is no acute intracranial findings or skull fracture. CT of the cervical spine shows no acute fracture. Patient does feel slightly improved while in the emergency room. We discharged home with close head injury/concussion instructions. She does note that she has had some mild instability/gait issues for some time now. Likely this is exacerbated by her recent knee surgery. Is encouraged to follow-up with her primary care doctor and they can discuss physical therapy/balance therapy as well. Patient is comfortable taking Tylenol for pain control at home. Given return precautions. Counseled on signs and symptoms of concussion as well as concussion care. Discharged home in stable condition. Radiography Diagnostic Testing: Clinical Impression(s) from Imaging Studies Brain CT 04/09/23 17:35 IMPRESSION: Right parieto-occipital scalp hematoma. No acute abnormal intracranial finding. Electronically Signed: Geo Luis MD at 18:16 EDT , Cervical Spine CT 04/09/23 17:35 IMPRESSION: No evidence of acute cervical spinal fracture or spondylolisthesis. Electronically Signed: Geo Luis MD at 18:21 EDT , Discharge Plan Triage Chief Complaint: Head Injury ED Provider: Lesley Walker Dx/Rx/DC Orders Instructions: ED Concussion, ED Scalp Contusion, ED Head Injury (Adult) Prescriptions: No Action atorvastatin 20 MG tablet 20 mg PO QHS Patient Comments: losartan-hydrochlorothiazide 1 EACH tablet 1 ea PO DAILY Primary Care Provider: Geo Gonzalez Referrals: Geo Gonzalez MD [Primary Care Provider] - Activity Restrictions/Additional Instructions: Take Tylenol as needed for pain. Use ice for the swelling in the back of your head. Return to the ER if you have worsening symptoms or further concerns/further falls. Disposition Disposition: Home, Self Care
[2023-04-09] MEDS: Acetaminophen 325 MG Tablet 650 MG PO (17:47)
[2023-04-09 19:29] VITALS: BP 171/65; PULSE 69; RESP 17; O2SAT 98
== END 2023-04-09 19:30 | disposition home or self-care (01) ==
PROVIDERS: Emergency Provider Emergency Medicine; PCP Family Medicine; Visit Provider Emergency Medicine
DX: S09.8XXA Other specified injuries of head, initial encounter (principal); E78.5 Hyperlipidemia, unspecified; I10 Essential (primary) hypertension; Z96.652 Presence of left artificial knee joint; Z79.899 Other long term (current) drug therapy; W06.XXXA Fall from bed, initial encounter; Y92.019 Unspecified place in single-family (private) house as the place of occurrence of the external cause; S00.03XA Contusion of scalp, initial encounter
CPT/HCPCS: 70450; 72125; 99283

== ENCOUNTER → 2023-06-29 | Outpatient (CLI) | payer MEDICARE, SELFPAY ==
[2023-06-29 15:14] LABS: Absolute Lymphocyte Count 1.05 X10^3/uL (0.83-4.51); Absolute Neutrophil Count 7.4 X10^3/uL (2.0-7.7); Basophil# 0.01 X10^3/uL; Basophil% 0.1 % (0-1); Eosinophil# 0.03 X10^3/uL; Eosinophils% 0.3 % (0-5); Hematocrit 41.4 % (37-47); Hemoglobin 13.2 g/dL (12.0-15.0); Lymphocyte # 1.05 X10^3/ul (0.83-4.51); Lymphocyte % 11.8 % (19-41); Mean Corp Hgb Conc 31.9 g/dL (32-36); Mean Corpuscular Hgb 29.3 pg (27.0-32.0); Mean Platelet Vol. 10.8 fl (6.2-12.0); Monocyte# 0.34 X10^3/uL; Monocyte% 3.8 % (0-10); NRBC Flagged by Analyzer 0 % (0-5); Neutrophil # 7.42 X10^3/uL (2.7-7.7); Neutrophil % 83.6 % (47-70); Platelet Count 254 K/mm3 (150-450); RBC Distribution Width CV 12.6 % (11.6-14.6); RBC Distribution Width SD 42.6 fl (35.1-43.9); White Blood Count 8.9 K/mm3 (4.4-11.0)
[2023-06-29 15:48] LABS: ALB/GLOB Ratio 0.8 RATIO (0.9-2.4); AST(SGOT) 24 U/L (15-37); Alanine Aminotransfer ALT/SGPT 24 U/L (13-56); Albumin, Serum 3.6 g/dL (3.2-5.0); Alkaline Phosphatase 97 U/L (45-117); Anion Gap 6 (5-15); BUN 14 mg/dL (7-18); BUN/Creat Ratio 14.8 RATIO (10-20); CRP < 2.90 mg/L (0.0-3.0); Calcium,Total 9.7 mg/dL (8.5-10.1); Chloride 107 mmol/L (98-107); Creatinine, Serum 0.95 mg/dL (0.55-1.02); EST Glomerular Filtration Rate 60 mL/min (>60); Est Glom Filt Rate - Afr Amer 72 mL/min (>60); Globulin 4.3 g/dL (2.2-4.2); Glucose 139 mg/dL (74-106); Magnesium 2.1 mg/dL (1.6-2.6); Potassium 3.8 mmol/L (3.5-5.1); Protein, Total 7.9 g/dL (6.4-8.2); Sodium Level 139 mmol/L (136-145)
== END | disposition home or self-care (01) ==
LOC: MFPLAB 12:20
PROVIDERS: PCP Family Medicine; Visit Provider Family Medicine
DX: A05.9 Bacterial foodborne intoxication, unspecified (principal)
CPT/HCPCS: 36415; 80053; 83735; 85025; 86140

== ENCOUNTER → 2023-09-09 | Outpatient (CLI) | payer MEDICARE, SELFPAY ==
--- OUTSIDE RECORDS SUMMARY | 2023-09-09 12:04 | XMS RPT_ITS | CCD ---
Author Name Unknown Address [address] [place] [address] Organization [facility] Care Team Providers Care Monument Setter Helper Name Role Phone David Santana Unavailable Unavailable DEBS, DAVID Unavailable Unavailable DEBS, DAVID Unavailable Unavailable GERMAN PEREZ Unavailable Unavailable GERMAN PEREZ Unavailable Unavailable David Santana MD Primary Care Provider David Santana MD Primary Care Provider Huy Gallardo Unavailable Unavailable Geo Granado MD Primary Care Provider Brennan Monsivais MD Unavailable Blake SOIL AND PLANT SCIENTIST.SCRAP BALLER, Dheeraj Unavailable Hayden PT, Kaelyn Unavailable [phone] SORIN COOLEY Referring Unavailable DAVID SANTANA Primary Care Unavailable SORIN COOLEY Referring Unavailable DAVID SANTANA Primary Care Unavailable DHEERAJ LOZANO Referring Unavailable GEO GRANADO Primary Care Unavailable BRENNAN MONSIVAIS Admitting Unavailable MEI, BRENNAN Attending Unavailable GEO GRANADO Primary Care Unavailable JOHN TORRES Consulting Unavailable BRENNAN MONSIVAIS Admitting Unavailable MEI, BRENNAN Attending Unavailable GEO GRANADO Primary Care Unavailable Geo Granado MD Primary Care Provider GEO GRANADO Primary Care Unavailable DHEERAJ LOZANO Attending Unavailable DHEERAJ LOZANO Attending Unavailable GEO GRANADO Primary Care Unavailable MEI, BRENNAN Referring Unavailable DHEERAJ LOZANO Attending Unavailable GEO GRANADO Primary Care Unavailable DHEERAJ LOZANO Attending Unavailable GEO GRANADO Primary Care Unavailable GEO GRANADO Primary Care Unavailable KRISTINE AYON Referring Unavailable GEO GRANADO Primary Care Unavailable KRISTINE AYON Referring Unavailable KRISTINE AYON Referring Unavailable GEO GRANADO Primary Care Unavailable GEO GRANADO Primary Care Unavailable BRENNAN MONSIVAIS Referring Unavailable DAVID SANTANA Primary Care Unavailable BRENNAN MONSIVAIS Attending Unavailable DAVID SANTANA Primary Care Unavailable SORIN COOLEY Attending Unavailable GEO GRANADO Primary Care Unavailable DHEERAJ LOZANO Attending Unavailable Allergies Allergy Classification Reported Allergen(s) Allergy Type Date of Onset Reaction(s) Facility (20 sources) clarithromycin; Translations: [CLARITHROMYCIN] Drug Allergy 02-20-2013 Intolerance [facility] Repository (20 sources) codeine; Translations: [CODEINE] Drug Allergy 08-20-2009 GI Upset [facility] Repository (20 sources) HYDROcodone; Translations: [HYDROCODONE] Drug Allergy 02-20-2013 GI Upset [facility] Repository (20 sources) traMADol; Translations: [TRAMADOL HCL] Drug Allergy 02-20-2013 Intolerance [facility] Repository Medications Current Medications Medication Drug Class(es) Dates Sig (Normalized) Sig (Original) docusate sodium 100 mg oral capsule (9 sources) Start: 12-29-2022 End: 01-29-2023 take 1 capsule by mouth every twelve hours as needed docusate sodium (COLACE) 100 mg capsule Take 1 capsule by mouth twice daily as needed for constipation. 60 capsule 0 12/29/2022 01/29/2023 Active Completed/Discontinued Medications Medication Drug Class(es) Dates Sig (Normalized) Sig (Original) acetaminophen 500 mg oral tablet (12 sources) Start: 12-29-2022 take 2 tablets by mouth every eight hours as needed acetaminophen (TYLENOL) 500 mg tablet Take 2 tablets by mouth every 8 hours as needed for pain. 90 tablet 0 12/29/2022 Active Problems Active Problems Problem Classification Problem Date Documented Date Episodic/Chronic Disorders of lipid metabolism (19 sources) Hypercholesterolemia; Translations: [Pure hypercholesterolemia, unspecified] Onset: 04-22-2011 04-22-2011 Chronic Esophageal disorders (16 sources) Gastroesophageal reflux disease; Translations: [Gastro-esophageal reflux disease without esophagitis] Onset: 12-11-2022 Chronic Essential hypertension (16 sources) Benign essential hypertension; Translations: [Essential (primary) hypertension] Onset: 12-11-2022 Chronic Osteoarthritis (3 sources) Arthritis of knee; Translations: [Unilateral primary osteoarthritis, unspecified knee] Chronic Other connective tissue disease (15 sources) History of repair of hip joint; Translations: [Presence of right artificial hip joint] Onset: 12-11-2022 Chronic Other connective tissue disease (3 sources) History of total knee arthroplasty; Translations: [Presence of left artificial knee joint] Chronic Other connective tissue disease (2 sources) Presence of right artificial knee joint; Translations: [History of right knee joint replacement] Onset: 12-11-2022 Chronic Other connective tissue disease (1 source) Presence of left artificial knee joint; Translations: [S/P total knee arthroplasty, left] Onset: 12-28-2022 Chronic Other connective tissue disease (1 source) Presence of right artificial hip joint; Translations: [History of right hip replacement] Onset: 12-11-2022 Chronic Other nervous system disorders (1 source) Other chronic pain; Translations: [Chronic pain of left knee] Onset: 01-14-2023 Chronic Other non-traumatic joint disorders (3 sources) Arthrofibrosis of left knee; Translations: [Ankylosis, left knee] Chronic Other non-traumatic joint disorders (3 sources) Pain in left knee; Translations: [Pain in joint, lower leg] Onset: 07-17-2022 Episodic Other nutritional; endocrine; and metabolic disorders (12 sources) Obesity; Translations: [Other obesity due to excess calories] Onset: 12-11-2022 Chronic Other nutritional; endocrine; and metabolic disorders (3 sources) Obesity caused by energy imbalance; Translations: [Other obesity due to excess calories] Onset: 12-11-2022 12-11-2022 Chronic Other nutritional; endocrine; and metabolic disorders (1 source) Other obesity due to excess calories; Translations: [Class 1 obesity due to excess calories with serious comorbidity and body mass index (BMI) of 30.0 to 30.9 in adult] Onset: 12-11-2022 Chronic Other nutritional; endocrine; and metabolic disorders (1 source) Body mass index (BMI) 30.0-30.9, adult; Translations: [Class 1 obesity due to excess calories with serious comorbidity and body mass index (BMI) of 30.0 to 30.9 in adult] Onset: 12-11-2022 Chronic Unclassified (1 source) Unknown / UNK(Unknown) Onset: 03-17-2017 Past or Other Problems Problem Classification Problem Date Documented Da te Episodic/Chronic Heart valve disorders (16 sources) Heart murmur; Translations: [Cardiac murmur, unspecified] Onset: 12-11-2022 Episodic Other bone disease and musculoskeletal deformities (17 sources) Osteopenia; Translations: [Other specified disorders of bone density and structure, unspecified site] Onset: 05-12-2011 05-12-2011 Episodic Other connective tissue disease (3 sources) Muscle weakness; Translations: [Muscle weakness (generalized)] Onset: 01-22-2012 01-22-2012 Episodic Results Test Name Value Interpretation Reference Range Facil ity Vital Signs Date Time Vital Sign Value Performing Clinician Faci lity 01-20-2023 14:11-0400 Body temperature 97.81 [degF] Shannan Vikas PROFESSOR OF FAMILY MEDICINE Work Phone: [facility] 01-20-2023 14:11-0400 Diastolic blood pressure 70 mm[Hg] Shannan Vikas PROFESSOR OF FAMILY MEDICINE Work Phone: [facility] 01-20-2023 14:11-0400 Heart rate 75 /min Shannan Vikas PROFESSOR OF FAMILY MEDICINE Work Phone: [facility] 01-20-2023 14:11-0400 Respiratory rate 18 /min Shannan Vikas PROFESSOR OF FAMILY MEDICINE Work Phone: [facility] 01-20-2023 14:11-0400 SaO2% (BldA) [Mass fraction] 97 % Shannan Vikas PROFESSOR OF FAMILY MEDICINE Work Phone: [facility] 01-20-2023 14:11-0400 Systolic blood pressure 120 mm[Hg] Shannan Vikas PROFESSOR OF FAMILY MEDICINE Work Phone: [facility] 01-15-2023 09:00-0400 Body temperature 97.2 [degF] Kaelyn Blake PT Work Phone: [facility] 01-15-2023 09:00-0400 Diastolic blood pressure 74 mm[Hg] Kaelyn Blake PT Work Phone: [facility] 01-15-2023 09:00-0400 Heart rate 83 /min Kaelyn Blake PT Work Phone: [facility] 01-15-2023 09:00-0400 Respiratory rate 18 /min Kaelyn Melton-Nuñez PT Work Phone: [facility] 01-15-2023 09:00-0400 SaO2% (BldA) [Mass fraction] 99 % Kaelyn Melton-Nuñez PT Work Phone: [facility] 01-15-2023 09:00-0400 Systolic blood pressure 164 mm[Hg] Kaelyn Stewartman-Nuñez PT Work Phone: [facility] 01-07-2023 10:15-0400 Body temperature 97.59 [degF] Shannan Vikas PROFESSOR OF FAMILY MEDICINE Work Phone: [facility] 01-07-2023 10:15-0400 Diastolic blood pressure 60 mm[Hg] Shannan Vikas PROFESSOR OF FAMILY MEDICINE Work Phone: [facility] 01-07-2023 10:15-0400 Heart rate 71 /min Shannan Vikas PROFESSOR OF FAMILY MEDICINE Work Phone: [facility] 01-07-2023 10:15-0400 Respiratory rate 18 /min Shannan Vikas PROFESSOR OF FAMILY MEDICINE Work Phone: [facility] 01-07-2023 10:15-0400 SaO2% (BldA) [Mass fraction] 97 % Shannan Vikas PROFESSOR OF FAMILY MEDICINE Work Phone: [facility] 01-07-2023 10:15-0400 Systolic blood pressure 114 mm[Hg] Shannan Vikas PROFESSOR OF FAMILY MEDICINE Work Phone: [facility] 01-01-2023 10:01-0400 Body temperature 98.1 [degF] Kaelyn Melton-Joaquin PT Work Phone: [facility] 01-01-2023 10:01-0400 Diastolic blood pressure 68 mm[Hg] Kaelyn Melton-Nuñez PT Work Phone: [facility] 01-01-2023 10:01-0400 Heart rate 77 /min Kaelyn Melton-Joaquin PT Work Phone: [facility] 01-01-2023 10:01-0400 Respiratory rate 16 /min Kaelyn Blake PT Work Phone: [facility] 01-01-2023 10:01-0400 SaO2% (BldA) [Mass fraction] 99 % Kaelyn Blake PT Work Phone: [facility] 01-01-2023 10:01-0400 Systolic blood pressure 150 mm[Hg] Kaelyn Blake PT Work Phone: [facility] 12-30-2022 12:04-0400 Diastolic blood pressure 76 mm[Hg] Becky Lai PT Work Phone: [facility] 12-30-2022 12:04-0400 Heart rate 74 /min Becky Lai PT Work Phone: [facility] 12-30-2022 12:04-0400 Respiratory rate 20 /min Becky Lai PT Work Phone: [facility] 12-30-2022 12:04-0400 SaO2% (BldA) [Mass fraction] 94 % Becky Lai PT Work Phone: [facility] 12-30-2022 12:04-0400 Systolic blood pressure 140 mm[Hg] Becky Lai PT Work Phone: [facility] 12-30-2022 11:42-0400 Body temperature 97.81 [degF] Becky Lai PT Work Phone: [facility] 12-11-2022 14:59-0400 Body height 160 cm Pacc 1 Work Phone: [facility] 12-11-2022 14:59-0400 Body temperature 97.59 [degF] Pacc 1 Work Phone: [facility] 12-11-2022 14:59-0400 Body weight 77.11 kg Pacc 1 Work Phone: [facility] 12-11-2022 14:59-0400 Diastolic blood pressure 60 mm[Hg] Pacc 1 Work Phone: [facility] 12-11-2022 14:59-0400 Heart rate 76 /min Pacc 1 Work Phone: [facility] 12-11-2022 14:59-0400 Respiratory rate 14 /min Pacc 1 Work Phone: [facility] 12-11-2022 14:59-0400 SaO2% (BldA) [Mass fraction] 95 % Pacc 1 Work Phone: [facility] 12-11-2022 14:59-0400 Systolic blood pressure 118 mm[Hg] Pacc 1 Work Phone: [facility] 07-17-2022 08:51-0400 Body height 162.6 cm Sorin Cooley MD Work Phone: [facility] 07-17-2022 08:51-0400 Body weight 75.3 kg Sorin Cooley MD Work Phone: [facility] Encounters Encounter Date Encounter Type Care Provider Facility Start: 04-27-2023 End: 04-27-2023 ambulatory GEO GRANADO Facility:[facility] Start: 03-30-2023 End: 03-30-2023 ambulatory GEO GRANADO Facility:[facility] Start: 03-30-2023 End: 03-30-2023 Patient encounter procedure Dheeraj Lozano APRN.SCRAP BALLER Work Phone: Orthopaedics Procedures Date Procedure Procedure Detail Performing Clinician Start: 12-11-2022 Antibody screen GEO NUNES Plan of Treatment Date Care Activity Detail Author Start: 12-29-2025 DIABETES SCREEN DIABETES SCREEN [facility] Start: 12-11-2025 DIABETES SCREEN DIABETES SCREEN [facility] Start: 05-14-2023 Influenza vaccination C [facility] Start: 12-11-2022 End: 02-10-2023 Ferritin [Mass/volume] in Serum or Plasma FERRITIN BLD Lab Routine Pre-operative examination Expected: 12/11/2022, Expires: 02/10/2023 [facility] Work Phone: Immunizations Immunization Date Immunization Notes Care Provider Frandy whittaker 03-27-2011 diphtheria and tetan us toxoids, adsorbed for pediatric use Sorin Cooley MD Work Phone: [facility] 03-27-2011 pneumococcal polysaccharide vaccine, 23 valent Sorin Cooley MD Work Phone: [facility] Payers Date Payer Category Payer Medicare [employer] MEDICARE [employer] MEDICARE PPO [id number] 2021-Present [phone] [address] [address] [place] [address] PPO [id number] 2021 Medicare [id number] Unknown [id number] Social History Date Type Detail Facility Start: 07-17-[address] [facility] Never smoked tobacco [facility] Start: 07-17-2022 Tobacco use and exposure Smoke less tobacco non-user [facility] Start: 07-17-2022 End: 12-11-2022 Alcohol intake Current drinker of alcohol (finding) [facility] Start: 07-17-2022 Tobacco Comment No [facility] Start: 03-27-2011 [facility] Start: 1940 Sex Assigned At Not on file [facility] Start: 07-07-2022 End: 07-17-2022 Exposure to SARS-CoV-2 (event) Not sure [facility] Start: 12-11-2022 End: 01-14-2023 History of Social function [facility] Start: 12-11-2022 End: 01-14-2023 Tobacco use panel [facility] National Score (1-10 0), lower number is lower risk 72 [facility] Medical Equipment Procedure Code Equipment Code Equipment Origin al Text Equipment Identifier Dates Head Fem +5mm 36mm Hip - [id number] Start: 11-30-2011 Clinical Notes 09-27-2013 to 04-27-2023 Dheeraj Lozano APRN.SCRAP BALLER - 03/30/2023 12:54 PM EDBernie Lozano APRN.SCRAP BALLER - 03/18/2023 2:52 PM EDTHH PT ROUTINE/REASSESSMENT/RECERT/CASE MGMT - Shannan Bean, PROFESSOR OF FAMILY MEDICINE - 01/20/2023 2:03 PM EDT Note Date & Type Note Facility 04-27-2023 Note HNO ID: [id number] Author: Dheeraj Lozano APRN.CNP Service: ? Author Type: Nurse Practitioner Type: Progress Notes Filed: 04/27/2023 10:11 AM Note Text: This is a follow up appointment for Lety. 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 She reports she is doing well overall. She has no pain. She reports some swelling. Her last ROM was 120. She has no concerns today. Physical exam demonstrates well healed incision. Mild swelling. ROM is 0-120. Ligamentous exam is stable. Lety is 4.5 months out and doing well. She will follow up in with us at 1 year. All questions answered. Dheeraj Lozano APRN.CNP Orthopaedic Surgery [facility] 03-30-2023 Note HNO ID: [id number] Author: Dheeraj Lozano APRN.TORO Service: ? Author Type: Nurse Practitioner Type: Progress Notes Filed: 03/30/2023 1:15 PM Note Text: Mrs. Glover is following up today for s/p left knee FRANCISCO J with Dr. Monsivais on 03/22/23. Pre-op her motion was 0-95. We were able to flex to about 125 degrees post operatively. She reports she has been going to outpatient PT. Her last appointment was yesterday with PT and reports 113 degrees of flexion. She continues to report no pain. She will continue with PT for the next 3 weeks as well as doing exercises on her own. She will follow up at that time and if things continue to progress her next follow up will be at 1 year post op with repeat x-rays. All questions answered Dheeraj Lozano APRN.CNP Orthopaedic Surgery [facility] 03-30-2023 History of Present illness Narrative Mrs. Glover is following up today for s/p left knee FRANCISCO J with Dr. Monsivais on 03/22/23. Pre-op her motion was 0-95. We were able to flex to about 125 degrees post operatively. She reports she has been going to outpatient PT. Her last appointment was yesterday with PT and reports 113 degrees of flexion. She continues to report no pain. She will continue with PT for the next 3 weeks as well as doing exercises on her own. She will follow up at that time and if things continue to progress her next follow up will be at 1 year post op with repeat x-rays. All questions answered Dheeraj Lozano APRN.CNP Orthopaedic Surgery documented in this encounter [facility] 03-18-2023 Note HNO ID: [id number] Author: Dheeraj Lozano APRN.CNP Service: ? Author Type: Nurse Practitioner Type: Progress Notes Filed: 03/18/2023 3:02 PM Note Text: This is a follow up appointment for Mrs. Glover. She was last seen on 02/18/23. She is well known to me having undergone Left TKA on 12/28/22. She continues to do well but does continue to complain of stiffness. She has no pain. She reports she was unable to initially do outpatient PT due to co-pay so she has been doing PT and exercises on her own. Her last documented ROM was 95. I gave he ra medrol dose pack last OV and specifically instructed her to limit other activities and focus on flexion. She did also agree to go to outpatient PT. She has had 2 visits with them and she reports obtaining 100 degrees of flexion yesterday. Physical exam today demonstrates 0-95 in AROM. I am able to get to 100 passively. Her incision is well healed without erythema or drainage. There is minimal swelling. She has no tenderness to palpation. Mrs. Glover and I had a long discussion about treatment options. She continues to have stiffness and does appear to have developed significant scar tissue. She is still active in PT but she has not made much progress being 11 weeks out. I would like for her to pursue left knee FRANCISCO J with Dr. Mosnivais. We discussed risks versus benefits and she wishes to proceed. She is going to discuss with family due to ride availability and if possible will plan for Wednesday03/22/23 or at the latest 03/29/23. Once I hear back we will get this scheduled. Dheeraj Lozano APRN.CNP Orthopaedic Surgery [facility] 03-18-2023 History of Present illness Narrative This is a follow up appointment for Mrs. Glover. She was last seen on 02/18/23. She is well known to me having undergone Left TKA on 12/28/22. She continues to do well but does continue to complain of stiffness. She has no pain. She reports she was unable to initially do outpatient PT due to co-pay so she has been doing PT and exercises on her own. Her last documented ROM was 95. I gave he ra medrol dose pack last OV and specifically instructed her to limit other activities and focus on flexion. She did also agree to go to outpatient PT. She has had 2 visits with them and she reports obtaining 100 degrees of flexion yesterday. Physical exam today demonstrates 0-95 in AROM. I am able to get to 100 passively. Her incision is well healed without erythema or drainage. There is minimal swelling. She has no tenderness to palpation. Mrs. Glover and I had a long discussion about treatment options. She continues to have stiffness and does appear to have developed significant scar tissue. She is still active in PT but she has not made much progress being 11 weeks out. I would like for her to pursue left knee FRANCISCO J with Dr. Monsivais. We discussed risks versus benefits and she wishes to proceed. She is going to discuss with family due to ride availability and if possible will plan for Wednesday03/22/23 or at the latest 03/29/23. Once I hear back we will get this scheduled. Dheeraj Lozano APRN.CNP Orthopaedic Surgery documented in this encounter [facility] 02-19-2023 Note HNO ID: [id number] Author: Dheeraj Lozano APRN.CNP Service: ? Author Type: Nurse Practitioner Type: Progress Notes Filed: 02/19/2023 9:23 AM Note Text: Post-op Office Visit Lety Glover 82 year old February 19, 2023 9:08 AM Surgery Date: 12/28/22 History: Lety Glover Is now 7 weeks out from S/P left TKA. Post-operative course has been without complication. No readmission/complications Subjective: Patient reports no pain at rest. Overall is doing well. Cane ambulatory aid No opioid pain medication She was unable to do outpatient PT due to cost (all out of pocket) She was doing well immediately post operatively Objective: Ambulates with cane Incision well-approximated, no drainage, normal uzair-incisional erythema ROM 0 - 95 (115 pre-op) Distally DP/PT palpable Distally S/S/SP/DP/T intact at baseline Distally DF/EHL/PF intact at baseline Negative romario/calf tenderness Xrays: No new today Assessment and Plan: Lety Glover Is here for a second post-op appointment, overall doing well -continued ice, rest, and use of non-narcotic analgesia as needed -Order placed for outpatient PT and discussed significant emphasis on flexion exercises and to limit other activities. Exercises demonstrated in office -Medrol dose pack for inflammation -WBAT on operative extremity -continue ankle pumps and dvt ppx through 4 weeks -will see back in 3 weeks for ROM check -discussed red flag symptoms of acutely increasing pain, new erythema, new swelling, drainage, shortness of breath Dheeraj Lozano APRN.[facility] Orthopaedic Surgery [facility] 01-20-2023 Miscellaneous Notes SITUATION: only patient present during today's visit. patient reports the following since the last homecare visit: medications/allergies--no changes, no fall. patient reports she has not been able to sleep for 4-5 days because sof knee ache at night. States im really tired, I dont know how much i can do today with therapy. BACKGROUND: Diagnoses (reason for Home Care): LTKR Weight Bearing/Precaution Changes: no changes ASSESSMENT: Focus of visit gait training w/ww, added step flexion stretch x's 10 w/ sec hold. Assisted patient with calling Dr bazan to request refill of pain meds due to patient being very frustrated that she could not get through to anyone, Plan of care, goals, and visit frequency reviewed and agreed upon with patient and/or caregiver. Current Discharge Plan: independent with home exercise program Anticipate discharge by 02/04/23 RECOMMENDATION: Next visit to focus on cane traiining if able See intervention summary for intervention/education details. documented in this encounter [facility] 01-15-2023 Miscellaneous Notes SITUATION: only patient present during today's visit. patient reports the following since the last homecare visit: medications/allergies--no changes, no fall. patient reports that her dtr went home yesterday after taking her to the doctor. Md was pleased with her progress but states she is not ready to drive yet and he does not panchito her walking the distance to the OP center next door as she would have to negotiate a distance though the parking lots and access roads. He would like her to cont home PT a few more weeks unitl she can get herself to OP if insurance will allow . BACKGROUND: Diagnoses (reason for Home Care): LTKR Weight Bearing/Precaution Changes: no changes ASSESSMENT: Focus of visit :REassessment . Minimal edma LLE . Pt reports pain is much better , no longer taking narcotics .this am performed supine and seated and standing strenthening as well as ROM. Encouraged patient to perform 2times/day and hourly walking. AAROM 4-90. Plan of care, goals, and visit frequency reviewed and agreed upon with patient and/or caregiver. Current Discharge Plan: able to transition to OP PT Anticipate discharge by 02/06/23 RECOMMENDATION: Cont 2w3 Next visit to focus on transitioning to cane See intervention summary for intervention/education details. documented in this encounter [facility] 01-14-2023 Note HNO ID: [id number] Author: Dheeraj Lozano APRN.SCRAP BALLER Service: ? Author Type: Nurse Practitioner Type: Progress Notes Filed: 01/14/2023 3:18 PM Note Text: Post-op Office Visit Lety Glover 82 year old January 14, 2023 2:57 PM Surgery Date: 12/28/22 History: Lety Glover Is now 2 weeks out from S/P Left TKA. Post-operative course has been without complication. No readmission/complications Subjective: Patient reports continued pain. Overall is doing well. Walker ambulatory aid Oxycodone opioid pain medication Objective: Ambulates with walker Incision well-approximated, no drainage, normal uzair-incisional erythema ROM 5 - 95 Distally DP/PT palpable Distally S/S/SP/DP/T intact at baseline Distally DF/EHL/PF intact at baseline Negative romario/calf tenderness Xrays: Well-positioned total knee replacement in appropriate alignment with no evidence of loosening Assessment and Plan: Lety Glover Is here for a first post-op appointment, overall doing well -continued ice, rest, and use of non-narcotic analgesia as needed -wean off ambulatory aids -discussed home exercises and therapy -WBAT on operative extremity -continue ankle pumps and dvt ppx through 4 weeks -discussed driving requirement: 4 weeks post-op, off narcotic pain medication, adequate brake time -will see back at 6 week appointment for clinical exam -discussed red flag symptoms of acutely increasing pain, new erythema, new swelling, drainage, shortness of breath Dheeraj Lozano APRN.SCRAP BALLER Orthopaedic Surgery [facility] 01-14-2023 Note HNO ID: [id number] Author: SPEEDY Doran Service: Radiology Author Type: Technologist Type: Progress Notes Filed: 01/14/2023 1:41 PM Note Text: Radiology Service Progress Note PATIENT NAME: Lety Glover DATE OF SERVICE: January 14, 2023 TIME: 1:40 PM PATIENT IDENTITY VERIFICATION COMPLETED USING TWO (2) IDENTIFIERS: Name and Date of confirmed by patient verbally. FALL SCREENING: Has the patient had 2 falls in the last year or 1 fall with injury or currently using an Ambulatory Assistive Device (Walker, Cane, Wheelchair, Crutches, etc.)? Yes, Patient High Risk for Falls What interventions were put in place to prevent falls during this visit? Instructed Patient to Remain Seated (Not on Exam Table) Until Exam and Increased Observations by Caregivers PATIENT GENDER DATA: Female. status: : No status: NO. PATIENT RELEVANT IMPLANT DATA REVIEWED: Not Applicable RADIOLOGY DEPARTMENT: General X-ray: Exam(s) Completed: Lower Extremity X-Ray(s): Knee, AP / Lat / Merchant Left and Wt. Bearing PERIPHERAL IV DATA: Not applicable SIGNED BY: SPEEDY Doran January 14, 2023 1:40 PM [facility] 01-14-2023 History of Present illness Narrative Post-op Office Visit Lety Glover 82 year old January 14, 2023 2:57 PM Surgery Date: 12/28/22 History: Lety Glover Is now 2 weeks out from S/P Left TKA. Post-operative course has been without complication. No readmission/complications Subjective: Patient reports continued pain. Overall is doing well. Walker ambulatory aid Oxycodone opioid pain medication Objective: Ambulates with walker Incision well-approximated, no drainage, normal uzair-incisional erythema ROM 5 - 95 Distally DP/PT palpable Distally S/S/SP/DP/T intact at baseline Distally DF/EHL/PF intact at baseline Negative romario/calf tenderness Xrays: Well-positioned total knee replacement in appropriate alignment with no evidence of loosening Assessment and Plan: Lety Glover Is here for a first post-op appointment, overall doing well -continued ice, rest, and use of non-narcotic analgesia as needed -wean off ambulatory aids -discussed home exercises and therapy -WBAT on operative extremity -continue ankle pumps and dvt ppx through 4 weeks -discussed driving requirement: 4 weeks post-op, off narcotic pain medication, adequate brake time -will see back at 6 week appointment for clinical exam -discussed red flag symptoms of acutely increasing pain, new erythema, new swelling, drainage, shortness of breath Dheeraj Lozano APRN.TORO Orthopaedic Surgery documented in this encounter [facility] 01-07-2023 Miscellaneous Notes SITUATION: only patient present during today's visit. patient reports the following since the last homecare visit: medications/allergies--no changes, no fall. patient reports she is sore but doing ok. Took shower this morning, went well. BACKGROUND: Diagnoses (reason for Home Care): LTKR Weight Bearing/Precaution Changes: no changes ASSESSMENT: Focus of visit performed supine and seated rOM and strength exercuses for HEP. Encouraged patient to perform 2times/day and hourly walking. AAROM 0-74. Discussed OP PT w/ patient. Patienr stated she does not want to go to OP PT because she has a large co pay and cannnot afford it, Plans to discuss w./ Dr Plan of care, goals, and visit frequency reviewed and agreed upon with patient and/or caregiver. Current Discharge Plan: independent with home exercise program Anticipate discharge by TBD RECOMMENDATION: Next visit to focus on add standing hams curl See intervention summary for intervention/education details. documented in this encounter [facility] 01-01-2023 Miscellaneous Notes SITUATION: daughter present during today's visit. patient reports the following since the last homecare visit: medications/allergies--no changes, no fall. patient reports she had a pretty good night. its so swollen though . BACKGROUND: Diagnoses (reason for Home Care): M17.12 Unilateral primary osteoarthritis, left knee s/p ARTHROPLASTY REPLACE JOINT TOTAL KNEE 12/28/2022 Past Medical History: Hypercholesteremia Osteopenia Essential Hypertension, Benign Gerd (Gastroesophageal Reflux Disease) Murmur Class 1 Obesity Due to Excess Calories With Serious Comorbidity and Body Mass Index (Bmi) of 30.0 to 30.9 in Adult History of Right Knee Joint Replacement History of Right Hip Replacement Weight Bearing or Surgical Precautions: falls risk / TKA ASSESSMENT: left knee 0-72 degrees AAROM . Supine ther ex, transfers , and gait Patient Goal: to regain her indep and to have less pain Patient will benefit from continued physical therapy to address the following deficits: strength, balance, gait, left knee joint ROM, transfers and bed mobility. Current Discharge Plan: outpatient rehab. Anticipate discharge by 01/16/23. RECOMMENDATION: . Next visit to focus on bandage removal -bed mobility and transfer training / ROM left knee and strengthening for LE / gait training with walker See intervention summary for intervention/education details. documented in this encounter [facility] 12-30-2022 Miscellaneous Notes SITUATION: daughter present during portion of today's visit. patient and caregiver reports that patient had surgery for left TKA yesterday and was DC home yesterday. She lives in one story apartment alone. Her daughters lives close by and her daughter's friend is also helping with meals / meds. Patient has no pets and her living space is clean and uncluttered. She is typically indep with all ADL and is able to drive and handle meds indep. BACKGROUND: Diagnoses (reason for Home Care): M17.12 Unilateral primary osteoarthritis, left knee s/p ARTHROPLASTY REPLACE JOINT TOTAL KNEE 12/28/2022 Past Medical History: Hypercholesteremia Osteopenia Essential Hypertension, Benign Gerd (Gastroesophageal Reflux Disease) Murmur Class 1 Obesity Due to Excess Calories With Serious Comorbidity and Body Mass Index (Bmi) of 30.0 to 30.9 in Adult History of Right Knee Joint Replacement History of Right Hip Replacement Weight Bearing or Surgical Precautions: falls risk / TKA ASSESSMENT: left knee 0-60 degrees AAROM Patient evaluated by [facility] Homecare physical therapy. Reviewed and explained homecare services. Plan of care, goals, and visit frequency developed, reviewed, and agreed upon with patient and/or caregiver. Patient Goal: to regain her indep and to have less pain Patient will benefit from continued physical therapy to address the following deficits: strength, balance, gait, left knee joint ROM, transfers and bed mobility. Current Discharge Plan: outpatient rehab. Anticipate discharge by 01/16/23. RECOMMENDATION: PT for 2w3 with Kaelyn Blake PT to follow as CM. bandage removal on 01/05/23. Next visit to focus on bed mobility and transfer training / ROM left knee and strengthening for LE / gait training with walker Agreeable to PT; declining NA. See intervention summary for intervention/education details. documented in this encounter [facility] 12-29-2022 Note HNO ID: [id number] Author: Mirela Xiong (White Sugar Pan Tank Operator) Service: Pharmacy Author Type: ? Type: Plan of Care Filed: 12/30/2022 11:03 AM Note Text: PHARMACY BEDSIDE DELIVERY SERVICE Patient Name: Lety Glover The marked outpatient medications were Filled at: [facility] and delivered to the patient's bedside to 272 Medication List START taking these medications acetaminophen 500 mg tablet Commonly known as: TYLENOL Take 2 tablets by mouth every 8 hours as needed for pain. X ascorbic acid (vitamin C) 500 mg tablet Commonly known as: VITAMIN C Take 1 tablet by mouth twice daily with meals for 27 doses. X aspirin, enteric coated 81 mg EC tablet Commonly known as: ASPIRIN, ENTERIC COATED Take 1 tablet by mouth twice daily for 28 days. Replaces: aspirin 81 mg Cap X docusate sodium 100 mg capsule Commonly known as: COLACE Take 1 capsule by mouth twice daily as needed for constipation. X meloxicam 7.5 mg tablet Commonly known as: MOBIC Take 1 tablet by mouth once daily for 14 days. X oxyCODONE IR 5 mg immediate release tablet Commonly known as: ROXICODONE Take 1-2 tablets by mouth every 6 hours as needed for pain. X pantoprazole DR 20 mg tablet Commonly known as: PROTONIX Take 1 tablet by mouth DAILY (6 AM) for 14 days. X polyethylene glycol 3350 17 gram/dose powder Take 1 capful (17 grams) by mouth once daily as needed for constipation for up to 10 days. Dissolve dose in 4 - 8 ounces of liquid and take as directed. X CONTINUE taking these medications amLODIPine 5 mg tablet Commonly known as: NORVASC CALCIUM 300 ORAL multivitamin tablet OMEGA 3 ORAL VITAMIN D3 ORAL VITAMIN E ORAL You might also be taking other medications not listed above. If you have questions about any of your other medications, talk to the person who prescribed them or your Primary Care Provider. STOP taking these medications aspirin 81 mg Cap Replaced by: aspirin, enteric coated 81 mg EC tablet mupirocin 2 % ointment Commonly known as: BACTROBAN Mirela Xiong (Glance) PAGER: [phone] December 30, 2022 11:03 AM [facility] 12-29-2022 Note HNO ID: [id number] Author: John Torres MD Service: General Internal Medicine Author Type: Physician Type: Progress Notes Filed: 12/29/2022 9:56 AM Note Text: INPATIENT CONSULT PROGRESS NOTES Patient Name: Lety Glover DATE of SERVICE: 12/29/22 TIME of SERVICE: 7:20 CONSULTING SERVICE: Medicine Plan of care discussed with: Provider, RN, Patient. INTERVAL HPI: Uneventful night, pain is fairly controlled. Patient seen and examined: Vitals/Meds/Labs/U/O reviewed Alert AND Oriented NO nausea, vomiting NO light headedness, NO shortness of breathe Dry oral mucosa CVS - RRR Lungs - Clear to auscultation Abdomen - soft, Nontender, normal bowel sounds LLE - Ankle No edema RLE - Ankle No edema MEDICATIONS: Current Facility-Administered Medications Medication Dose Route Frequency scopolamine - VERIFY patch OTHER q 8 H scopolamine - REMOVE PATCH OTHER ONCE amLODIPine 5 mg tab(s) (NORVASC) 5 mg ORAL DAILY lactated ringers iv infusion 75 mL/hr INTRAVENOUS CONTINUOUS oxyCODONE IR 5-10 mg tab(s) (ROXICODONE) 5-10 mg ORAL q 4 H PRN HYDROmorphone 0.2 mg injection (DILAUDID) 0.2 mg INTRAVENOUS q 3 H PRN acetaminophen 1,000 mg tab(s) (TYLENOL) 1,000 mg ORAL q 8 H keTORolac 15 mg injection (Toradol) 15 mg INTRAVENOUS q 6 H ondansetron orally disintegrating 4 mg tab(s) (ZOFRAN ODT) 4 mg ORAL q 6 H PRN Or ondansetron (PF) 4 mg injection (ZOFRAN) 4 mg INTRAVENOUS q 6 H PRN polyethylene glycol 3350 17 g packet 17 g ORAL DAILY PRN [START ON 12/30/2022] bisacodyl EC 10 mg tab(s) (DULCOLAX) 10 mg ORAL DAILY aluminum-magnesium hydroxide-simethicone 200-200-20 mg/5 mL 30 mL 30 mL ORAL q 2 H PRN ascorbic acid (vitamin C) 500 mg tab(s) (VITAMIN C) 500 mg ORAL BID w MEALS docusate sodium 100 mg cap(s) (COLACE) 100 mg ORAL BID senna 17.2 mg tab(s) (SENOKOT) 17.2 mg ORAL AT BEDTIME aspirin, enteric coated 81 mg tab(s) 81 mg ORAL BID PHYSICAL EXAM: Patient Vitals for the past 24 hrs: BP Temp Temp src Pulse Resp SpO2 12/29/22 0939 (!) 153/49 -- -- (!) 59 -- -- 12/29/22 0822 (!) 138/49 36.6 ?C (97.9 ?F) Oral 60 16 98 % 12/29/22 0351 (!) 151/47 36.3 ?C (97.3 ?F) Oral (!) 54 16 95 % 12/28/228 135/55 36.6 ?C (97.9 ?F) Temporal Art (!) 55 16 96 % 12/28/22 1925 (!) 127/43 36.6 ?C (97.9 ?F) Oral (!) 57 16 96 % 12/28/22 1608 132/53 36.5 ?C (97.7 ?F) Oral 66 20 96 % 12/28/22 1531 161/64 36.5 ?C (97.7 ?F) Temporal Art 78 16 96 % 12/28/22 1455 124/58 36.4 ?C (97.5 ?F) Axillary 66 16 100 % 12/28/22 1430 154/67 36.5 ?C (97.7 ?F) -- 63 15 97 % 12/28/22 1415 149/66 -- -- 61 14 100 % 12/28/22 1400 138/60 -- -- 64 14 100 % 12/28/22 1348 121/56 36.4 ?C (97.5 ?F) -- -- 13 100 % 12/28/22 1040 -- -- -- 69 20 98 % 12/28/22 1035 199/84 -- -- 70 20 97 % 12/28/22 1030 (!) 201/81 -- -- 69 11 99 % 12/28/22 1025 -- -- -- 71 14 98 % 12/28/22 1020 193/74 -- -- 64 17 98 % There is no height or weight on file to calculate BMI. DATA: CBC: Recent Labs 12/29/22 0546 WBC 10.86 RBC 3.54* HB 10.8* HCT 32.6* PLT 216 MCV 92.1 MCH 30.5 MPV 10.7 Coags: No results for input(s): PT, INR, APTT in the last 24 hours. CMP: Recent Labs 12/29/22 0546 NA 138 K 4.3 CHLOR 103 CO2 28 BUN 18 CREAT 1.06* GLUC 128* CA 8.9 ANION 7* ASSESSMENT AND PLAN: A. OA S/P - Total Knee Unilateral: left,DVT prophylaxis with aspirin Continue PT/OT Hypertension, continue Norvasc Hyperlipidemia currently not on any medication Possible discharge today SIGNATURE: John Torres MD [facility] 12-29-2022 Note HNO ID: [id number] Author: Stephen Hughes PA-C Service: Orthopaedic Surgery Author Type: Physician Oil And Gas Drafter Type: Progress Notes Filed: 12/29/2022 8:05 AM Note Text: POSTOP NOTE ORTHOPAEDIC SURGERY SERVICE DATE: 12/29/2022 SERVICE TIME: 8:04 AM IMPRESSION/PLAN: S/P Procedure(s) (LRB): ARTHROPLASTY REPLACE JOINT TOTAL KNEE (Left) on 12/28/2022 Physical Therapy evaluation WBAT LLE DVT prophylaxis: Intermittent pneumatic compression device (IPCD) and ASA 81 mg BID x 28 days Pain control Case Management for discharge planning Plan of care discussed with: Provider, RN, Patient. Patient Active Hospital Problem List: No active hospital problems. POST OPERATIVE COMPLICATIONS: Complicated by uneventful/none SUBJECTIVE: Patient states that they are comfortable Well Controlled knee pain. Denies incisional pain. OBJECTIVE: VITAL SIGNS: BP (!) 151/47 Pulse (!) 54 Temp 36.3 ?C (97.3 ?F) (Oral) Resp 16 SpO2 95% INTAKE AND OUTPUT: Intake/Output Summary (Last 24 hours) at 12/29/2022 0804 Last data filed at 12/29/2022 0100 Gross per 24 hour Intake 1020 ml Output 1400 ml Net -380 ml LABS: Hemoglobin Date Value Ref Range Status 12/29/2022 10.8 (L) 11.5 - 15.5 g/dL Final 12/11/2022 12.9 11.5 - 15.5 g/dL Final Hematocrit Date Value Ref Range Status 12/29/2022 32.6 (L) 36.0 - 46.0 % Final 12/11/2022 39.0 36.0 - 46.0 % Final Platelet Count Date Value Ref Range Status 12/29/2022 216 150 - 400 k/uL Final 12/11/2022 252 150 - 400 k/uL Final WBC Date Value Ref Range Status 12/29/2022 10.86 3.70 - 11.00 k/uL Final 12/11/2022 5.50 3.70 - 11.00 k/uL Final Creatinine Date Value Ref Range Status 12/29/2022 1.06 (H) 0.58 - 0.96 mg/dL Final 12/11/2022 1.15 (H) 0.58 - 0.96 mg/dL Final Potassium Date Value Ref Range Status 12/29/2022 4.3 3.7 - 5.1 mmol/L Final 12/11/2022 4.4 3.7 - 5.1 mmol/L Final VTE Prophylaxis: Active VTE Risk Category Order: 12/28/22 1500 VTE RISK CATEGORY: SURGICAL HIGH RISK ([place], [place]) Active VTE Medication Orders: Anticoagulant AND Antiplatelet Medications (From admission, onward) Start Dose Route Frequency Last Action Ordered Stop 12/29/22 0900 aspirin, enteric coated 81 mg tab(s) (Surgical Risk Categories) 81 mg ORAL 2 TIMES DAILY Ordered 12/28/22 1457 -- Active VTE Prophylaxis Orders: 12/28/22 1500 PNEUMATIC COMPRESSION STOCKINGS ([place], [place]) 12/28/22 1500 ACTIVITY - MOBILIZE PATIENT ([place], [place]) PHYSICAL EXAMINATION: Left Lower Extremity: Dorsalis pedis pulses palpable. Posterior tibial pulses palpable. Dorsi flexion 5/5. Plantar flexion 5/5. Extensor hallucis extension: 5/5. Sensory intact to light touch L1-S1. Dressing clean, dry, and intact. Surgical site no drainage and Silverlon intact. Thigh is not swollen, calf is not tender, no signs of DVT or infection Problem Review and Assessment: Skin and Abdominal Wall: Patient monitored, no new events overnight Cardiovascular and Vascular: Patient monitored, no new events overnight Respiratory: Patient monitored, no new events overnight Endocrine and Metabolic: Patient monitored, no new events overnight Gastrointestinal: Patient monitored, no new events overnight Genitourinary and Nephrology: Patient monitored, no new events overnight Behavioral, Cerebrovascular and Nervous: Patient monitored, no new events overnight Infectious: Patient monitored, no new events overnight DATA: Diagnostic tests reviewed for today's visit: Most recent labs and imaging results. SIGNATURE: Stephen Hughes PA-C PATIENT NAME: Lety Glover DATE: December 29, 2022 TIME: 8:04 AM The patient has undergone major orthopedic surgery and participating in therapy. Pain cannot be managed within an average of 30 MED per day. Patient requiring average of higher than 30 MED per day in order to control pain and allow patient to actively and safely participate in therapy and this is the lowest dose consistent with patient's medical condition. Non-narcotic medication options have been discussed. In addition, the patient has been advised of the benefits and risks of the opioid (including the potential for addiction). Patient demonstrated understanding of risks versus benefits. [facility] 12-28-2022 Note HNO ID: [id number] Author: Jack Suárez APRN.CRNA Service: Anesthesiology Author Type: Nurse Dietary Services Director Type: Anesthesia Procedure Notes Filed: 12/28/2022 11:38 AM Note Text: ANESTHESIOLOGY PROCEDURE NOTE Spinal Block General Information Procedure Start Time/Medication Administration: 12/28/2022 11:18 AM Patient location during procedure: OR Timeout Performed Pre-procedure: timeout performed Consent Obtained: Yes Patient identity confirmed: arm band and patient Reason for Block: primary surgical anesthetic Staffing E LEARNING SPECIALIST: Jack Suárez APRN.E LEARNING SPECIALIST Performed by: E LEARNING SPECIALIST Preparation Sterility Preparation: hand hygiene performed prior to procedure, sterile gloves, drapes, and procedure tray, gown used during line insertion, surgical cap used, mask used, sterile drape used during line insertion, skin prep agent completely dried prior to procedure Sterility Technique Not Completely Performed Due to Extreme Emergency: Yes Site Prep: Betadine Procedure Details Patient Position: sitting Ultrasound Guided: No Monitoring: Pulse Ox and NIBP Location: L3-4 Injection Technique: single-shot Needle Needle Type: pencil-tip Needle Gauge: 22 G Needle Length: 3.5 in Assessment Events: tolerated well SIGNATURE: Jack Suárez APRN.E LEARNING SPECIALIST PATIENT NAME: Lety Glover DATE: December 28, 2022 TIME: 11:37 AM CSN: [id number] [facility] 12-28-2022 Note HNO ID: [id number] Author: Batsheva Proctor MD Service: Anesthesiology Author Type: Anesthesiologist Type: Anesthesia Procedure Notes Filed: 12/28/2022 10:32 AM Note Text: ANESTHESIOLOGY PROCEDURE NOTE Peripheral Nerve Block General Information Procedure Start Time/Medication Administration: 12/28/2022 10:22 AM Procedure End time: 12/28/2022 10:31 AM Patient location during procedure: induction room Timeout Performed Pre-procedure: timeout performed Consent Obtained: Yes Patient identity confirmed: arm band and patient Reason for block: post-op pain management/at surgeon's request Staffing Anesthesiologist: Batsheva Proctor MD Performed by: anesthesiologist Preparation Sterility Preparation: hand hygiene performed prior to procedure, sterile gloves, drapes, and procedure tray, surgical cap used, mask used, sterile drape used during line insertion, skin prep agent completely dried prior to procedure Site Prep: Chloraprep Pre-Procedure Neuro Exam Location: LLE Sensory: intact Motor: intact Procedure Details Patient Position: supine Monitoring: Pulse OX, EKG and NIBP Block Type Lower Extremity: distal femoral (adductor canal) Laterality: left Injection Technique: single-shot Ultrasound Guided: Yes Image in Chart: yes Local Infiltration: Yes Needle Needle Type: echogenic Needle Gauge: 22 G Needle Length: 100 mm Needle Localization: ultrasound Assessment Injection assessment: negative aspiration, no paresthesia on injection, incremental injection and local visualized surrounding nerve on ultrasound Post-Procedure Neuro Exam Expected Regional Anesthesia: Yes Medications Administered dexamethasone sodium phosphate injection (DECADRON) - peripheral nerve block 4 mg - 12/28/2022 10:22:00 AM Comments 0.5% bupivacaine 20 ml SIGNATURE: Batsheva Proctor MD PATIENT NAME: Lety Glover DATE: December 28, 2022 TIME: 10:22 AM CSN: [id number] [facility] 12-11-2022 Instructions Kristine Ayon APRN.CNP - 12/11/2022 3:15 PM EDT PATIENT PREOPERATIVE INSTRUCTIONS Brennan Monsivais MD has scheduled you for your procedure at this surgery center: [facility]: [phone] -- [address] [address]. Please read below carefully for your personalized instructions. Dietary Restrictions: - No solid food after midnight. - You may have 12 ounces of clear liquids (water, clear juices such as apple juice or gatorade, carbonated beverages, clear tea, black coffee, jello) until 2 hours before scheduled arrival at facility. No red/purple coloring and no creamer/sugar Medications: Unless instructed differently below, stay on all of your medications until your surgery. Approved medications to take the morning of surgery with a sip of water: amLODIPine (NORVASC) If you start any new medications after today's visit, please contact the surgeon's office. Blood Thinning Medications: - Stop NSAIDS (Ibuprofen, Advil, Aleve, Motrin, Celebrex, Mobic, etc.) 7 days before surgery, as directed by your surgeon. - Stop Aspirin 7 days before surgery, as directed by your surgeon. - Stop Vitamin E, ALL multi-vitamins, herbals and dietary supplements 7 days before surgery. - You may take Tylenol (Acetaminophen) or any of your pain medications that do not contain aspirin or NSAIDS as needed. Important Reminders: - Candy, mints, gum and tobacco products are NOT permitted the morning of surgery. - Hearing aids, dentures and glasses may be worn the morning of surgery. - NO jewelry, body piercings, makeup, hairpins or contacts are to be worn the day of surgery. If you develop symptoms such as a fever, cold, or flu, or have other changes to your health within TWO DAYS of scheduled surgery or the morning of surgery, please contact the surgery center above. Personal Belongings: -Please have photo ID and insurance cards. -If you do not have a copy of advance directives on file with us, please bring a copy with you on the day of surgery. - Leave ALL valuables and money at home or with family members. For Outpatient Procedures: - YOU MUST HAVE A RESPONSIBLE CIRCUIT BREAKER MECHANIC TAKE YOU HOME. A PILLOWCASE CUTTER OR FACTORY HELPER CANNOT BE MADE A RESPONSIBLE CIRCUIT BREAKER MECHANIC. - We recommend that a responsible person stays with you overnight to take care of you. - You cannot stay in a hotel alone after outpatient surgery. You will not be permitted to have your surgery, if you do not have someone to take care of you. Arrival Time for Surgery: - The Surgery Center or hospital where you are having surgery will call the afternoon before surgery (or Wednesday for Wednesday surgery) with a scheduled arrival time. - If you have not heard by 4 pm, please contact the surgery center above. Please be aware that emergency situations arise, which may delay or change your surgical time. If this happens, we will notify you as soon as possible and regret any inconvenience. If you already have an Advance Directive, please fax a copy to [phone] or email to for it to be added to your chart. If you do not have an Advance Directive, you can find the appropriate form and more information at [email or web address]. We recommend that you complete the Advance Directive form found on the website and bring it with you the day of your surgery. It can be witnessed and scanned into your chart that day. Kristine Ayon APRN.TORO documented in this encounter [facility] 12-11-2022 History and physical note HISTORY AND PHYSICAL EXAMINATION SERVICE DATE: 12/11/2022 SERVICE TIME: 3:44 PM PRIMARY CARE PHYSICIAN: Geo Granado MD REASON FOR VISIT: Lety Glover is a 82 year old female who is scheduled for Procedure(s): ARTHROPLASTY REPLACE JOINT TOTAL KNEE (Left) at the request of Dr. Brennan Monsivais for consultation. My final recommendation will be communicated back to the requesting physician by way of shared medical record or letter. Subjective The patient has the following: ACTIVE PROBLEM LIST Hypercholesteremia Osteopenia Essential Hypertension, Benign Gerd (Gastroesophageal Reflux Disease) Murmur Class 1 Obesity Due to Excess Calories With Serious Comorbidity and Body Mass Index (Bmi) of 30.0 to 30.9 in Adult History of Right Knee Joint Replacement History of Right Hip Replacement COVID-19 Immunization Status Overdue - COVID-19 VACCINE (3 - Booster for Pfizer series) Overdue since 03/05/2021 01/08/2021 Imm Admin: COVID-19 original vaccine, age 12+ yr, monovalent (PFIZER-BIONTECH - PURPLE TOP) 12/18/2020 Imm Admin: COVID-19 original vaccine, age 12+ yr, monovalent (PFIZER-BIONTECH - PURPLE TOP) CHIEF COMPLAINT: Pre-op exam HPI: Lety Glover is a 82 year old seen for PAC due to scheduled above surgery because of OA left knee. 08/28/2022, Dr. Monsivais HPI: Lety Glover is a 81 year old patient here for evaluation and management of left knee pain. Lety Glover has had progressive problems with the knee(s) most of the day over the past 5 year(s) interfering with activities which include exercise, walking, rising from a sitting position, and standing for prolonged periods of time. The problem began limiting activities 1-3 years ago. Currently the pain in the joint is rated at 6 out of 10 with minimal activity. The pain is constant and is located along the outside aspect, in the front, and in the back. The pain is described as aching. Relieving factors include rest and repositioning. There is no specific incident that brought about this pain. Lety Glover also complains of referred pain, stiffness, and locking. FUNCTIONAL STATUS: Climb a flight of stairs or walk up a hill (5.50 METs) Total Joint Arthroplasty: Risk Calculator Lety Glover has a 35.73% chance of NOT returning home at discharge for a Primary total Knee replacement. Lety's estimated Length of Stay is 2 days. Lety's 30 day chance of readmission is 7.16%. Readmission Probability 7.16 % (within 30 days following surgery) Estimated LOS 2 days Discharge Disposition Probability D/C to Home 64.27 % D/C to SNF 35.73 % These calculations are based on the following factors: - 81 years of age - sex is not male - BMI of 28 kg/m2 - NarxCare score of 0 - 0 hospitalizations in the last 12 months - no history of heart disease - no history of diabetes - no history of COPD - no history of anemia - preoperative ambulation: impaired community distances - 0 step(s) to enter home - bed location is on the first floor - bath location is on the first floor - caregiver is inconsistent - home is not more than 150 miles away - PROMIS-10 Mental Health T score not available - Marital status: PREVIOUS TREATMENTS: Medical Treatments: Steroid Injections Left Knee Physical Therapy: Use of Ambulatory Aid, Shoe Wear, Braces, Orthotics, etc., and Activities Modified REVIEW OF SYSTEMS: General: No weight loss, malaise or fevers. Neurological: No history of TIA's, stroke, DAIRY HUSBANDRY WORKER tumor, impaired sensorium, hemiplegia, paraplegia or quadraplegia. No neurological symptoms or problems. Respiratory: No history of current cough or dyspnea, or pneumonia in the past 6 weeks. No history of respiratory/pulmonary symptoms or problems. Cardiovascular: Positive for: hypertension (on rx) Negative for: anticoagulation therapy, arrhythmia, atrial fibrillation, CAD, chest pain, CHF, congenital heart defect, DVT/PE, hyperlipidemia, recent AR, murmur/valvular heart disease, open heart surgery and valve surgery. GI: Positive for: GERD (otc rx as needed) Negative for: abdominal pain, dysphagia, hepatitis, irritable bowel syndrome, inflammatory bowel disease, liver disease, nausea, pancreatitis, vomiting and ETOH >2 drinks/day. : No history of dysuria, frequency or incontinence, stones or chronic kidney disease. No difficulty urinating, nocturia > 1 time per night or hematuria. BIOSTATISTICIAN: Negative for abnormal vaginal bleeding, abnormal vaginal discharge. Endocrine: No history of diabetes. Has not taken steroids within the past 30 days. No history of endocrinological symptoms or problems. Hematology: Positive for: chronic anti-coagulation/platelet meds. Patient is on anti-coagulation/platelet medication(s): Aspirin. Negative for: anemia, bruises/bleeds easily and transfusion of at least 4 units within 72 hours prior to surgery. Oncology: No history of CA metastasis, chemo within 30 days, or radiotherapy within 90 days. No history of oncological symptoms or problems. Psych: No history of psychiatric symptoms or problems. Musculoskeletal: See HPI. +hx right hip/knee replacement Positive for: back pain. Skin: Negative for lesions, rash and itching. PAST MEDICAL HISTORY Diagnosis Date Essential hypertension Hyperlipidemia PAST SURGICAL HISTORY Procedure Laterality Date ARTHRP ACETBLR/PROX FEM PROSTC AGRFT/ALGRFT Right 11/2011 Hip replacement, total ARTHRP KNE CONDYLE&PLATU MEDIAL&LAT COMPARTMENTS Right 2006 Knee replacement, total NONE tubal preg OPEN REPAIR OF ROTATOR CUFF ACUTE Right Rotator cuff repair TOTAL ABDOMINAL HYSTERECT W/WO RMVL TUBE OVARY Hysterectomy, NIMA FAMILY HISTORY Problem Relation Age of Onset None Father Social History Tobacco Use Smoking status: Never Smokeless tobacco: Never Tobacco comments: No Vaping Use Vaping Use: Never used Substance Use Topics Alcohol use: Yes Comment: rarely Drug use: No Prior to Admission medications as of 12/11/22 1523 Medication Sig Last Dose Taking amLODIPine (NORVASC) 5 mg tablet Take 5 mg by mouth once daily. Taking Yes aspirin 81 mg cap Take by mouth. Taking Yes cholecalciferol, vitamin D3, (VITAMIN D3 ORAL) Take by mouth. Taking Yes VITAMIN E ORAL Take by mouth once daily. Taking Yes CALCIUM CARBONATE (CALCIUM 300 ORAL) Take by mouth. Taking Yes OMEGA-3 FATTY ACIDS (OMEGA 3 ORAL) Take by mouth. Taking Yes multivitamin ORAL tablet Take 1 tablet by mouth once daily. Taking Yes mupirocin (BACTROBAN) 2 % ointment Apply 0.5 inch with cotton swab (Q-tip) to each nostril in the morning and evening for 5 days prior to and including day of surgery. Medication Comments documented by Bronwyn (Hist) Swetha Dueñas RN on 10/14/2012 at 0644. glucosamine chondroitin/fish oil/garlic Occuvite daily for vision. HELD VITAMINS FOR A WEEK ALLERGIES Allergen Reactions Codeine GI Upset Severe vomiting Tramadol Hcl Intolerance Severe vomiting. Clarithromycin Intolerance Severe headache Hydrocodone GI Upset Objective PHYSICAL EXAM: General: alert and oriented (x3), healthy appearance and obese. Pertinent negatives noted - not distressed. Skin: normal color, no rash or lesions. HEENT: EOM intact and pupils equal round. Pertinent negatives noted - no carotid bruit. Cardiovascular: regular rate and rhythm, normal S1 and S2, no rub, murmurs, or gallop. Respiratory: normal breath sounds, no wheezes or crackles. No chest wall deformity or tenderness. Abdomen: soft. Pertinent negatives noted - not tender. Extremities: no deformity, no edema or tenderness, no joint swelling or clubbing. Neurological: normal cognition and motor skills. Gait normal. No weakness or sensory deficit. PAIN ASSESSMENT: Pain Pain Level: 6 Pain Location: Knee-Left Description: Sharp, Aching Duration Amount of Time: 2 Duration Units: Years Frequency: Intermittent Intervention/Comfort measure: Relaxation VITALS: BP 118/60 Pulse 76 Temp (Src) 97.6 (Temporal) Resp 14 Ht 5' 3 (1.60m) Wt 170 lb (77.1kg) SpO2 95% BMI 30.12 kg/(m^2). Diagnostic tests reviewed for today's visit: Lab Value Units Date High Low HB No results within date range. HCT No results within date range. WBC No results within date range. PLT No results within date range. NA No results within date range. K No results within date range. GLUC No results within date range. BUN No results within date range. CREAT No results within date range. PTSEC No results within date range. INR No results within date range. APTT No results within date range. ALT No results within date range. AST No results within date range. TBILI No results within date range. TSH No results within date range. Lab Value Units Date High Low HCGQT No results within date range. UHCG No results within date range. HCG, BODY* No results within date range. Lab Value Units Date High Low ABORHD No results within date range. ABSCREEN No results within date range. No results found for: HBA1C Recent Results (from the past 8760 hour(s)) ECG COMPLETE Collection Time: 12/11/22 3:10 PM Result Value Ventricular Rate 69 Atrial Rate 69 P-R Interval 130 QRS Duration 82 QT Interval 398 QTC Calculation (Bazett) 426 Calculated P [place] -2 Calculated R [place] 26 Calculated T [place] 63 Impression NORMAL SINUS RHYTHM NORMAL ECG No results found for this or any previous visit (from the past 89424 hour(s)). Assessment Patient has the following medical conditions which may affect uzair-operative course: Essential hypertension, benign Assessment: controlled on rx Last 14 BP Last 14 Encounter BP Readings: Date: BP: 12/11/2022 118/60 03/12/2017 158/58[map 84[ 03/09/2017 136/63 02/20/2013 124/64[true bp (from Extended Vitals)[ 02/13/2013 178/76 02/03/2013 132/78 01/23/2013 162/78 01/18/2013 132/80 12/21/2012 155/67 12/19/2012 136/65 09/26/2012 153/69 09/16/2012 128/78 08/01/2012 146/66 07/25/2012 126/78 Hypercholesteremia Assessment: diet controlled GERD (gastroesophageal reflux disease) Assessment: otc rx as needed Murmur Assessment: echo ordered Class 1 obesity due to excess calories with serious comorbidity and body mass index (BMI) of 30.0 to 30.9 in adult Assessment: Body mass index is 30.11 kg/m . History of right knee joint replacement Assessment: hx History of right hip replacement Assessment: hx Gil Activity Status Index: METS: Climb a flight of stairs or walk up a hill (5.50 METs) DASI Score: 5.5 Patient denies any chest pain or undue shortness of breath with the above physical activity. Clinical Frailty Scale: 3. Well, with treated comorbid disease STOP-Bang Score: Snores loudly Has or is being treated for high blood pressure Patient over 50 years old Has a large neck Denies feeling tired, fatigued, or sleepy during the daytime Has not been observed to stop breathing or choking/gasping during sleep BMI less than or equal to 35 kg/m^2 Non-male patient STOP-Bang Score: 4 [id number] Score: Age: >=75 Sex: female CHF history: No Hypertension history: Yes Stroke/TIA/thromboembolism history: No Vascular disease history: No Diabetes history: No [id number] Score: 4 ARISCAT Score: Age: >80 Preoperative SpO2: 91-95% Respiratory infection in the last month: No Preoperative anemia: Yes Surgical incision: peripheral Duration of surgery: 2-3 hrs Emergency procedure: No ARISCAT Score: 51 ASA Class: 3 ANESTHESIA FINDINGS: Intubation History: No history of difficult intubation Significant Anesthesia Considerations: none Airway History: No history of difficult airway I - PHYSICAL EVALUATION AIRWAY Patient intubated: No. Tracheostomy tube not present Mallampati: III. TM distance: >3 FB. Neck ROM: full ROM without neurological symptoms. Mouth opening: adequate. Short neck: no. Thick neck: yes Gustafson present: no Lip Bite Test: III Microretrognathia/Micronagthia/Re cessed Chin: No DENTAL Dental findings: teeth intact. II - ANESTHESIA PLAN ASA Score: 3 Anesthetic Plan: other Anesthetic plan additional comments: *PACC/TCI - anesthesia choice. Beta Mychal Monitoring Plan Post Procedure Analgesic Plan Informed Consent Anesthetic risks, benefits, alternatives, personnel and consent discussed: yes. Patient / Responsible Constitution Party agrees to proceed: yes Patient / Surrogate agrees to blood products: Yes Prepared for Surgery: optimally prepared for surgery, pending [see comment]. Labs, EKG, and echo CONSULTS: Patient does not require consults for optimization at this time Planned Anesthetic: other anesthesia choice The Following Tests/Procedures Have Been Initiated: Orders Placed This Encounter CBC with Differential Standing Status: Future Standing Expiration Date: 02/10/2023 CMP Standing Status: Future Standing Expiration Date: 02/10/2023 IRON + TIBC Standing Status: Future Standing Expiration Date: 02/10/2023 FERRITIN BLD Standing Status: Future Standing Expiration Date: 02/10/2023 Type and Screen, 30 day Standing Status: Future Standing Expiration Date: 02/10/2023 amLODIPine (NORVASC) 5 mg tablet Sig: Take 5 mg by mouth once daily. aspirin 81 mg cap Sig: Take by mouth. cholecalciferol, vitamin D3, (VITAMIN D3 ORAL) Sig: Take by mouth. mupirocin (BACTROBAN) 2 % ointment Sig: Apply 0.5 inch with cotton swab (Q-tip) to each nostril in the morning and evening for 5 days prior to and including day of surgery. Dispense: 22 g Refill: 0 perflutren lipid microspheres 1.3 mL in NaCl (PF) 0.9% 10 mL injection (DEFINITY) sodium chloride 0.9 % (flush) 10 mL (BD POSIFLUSH) ECG COMPLETE Order Comments: Ordered by an unspecified provider ECG COMPLETE Standing Status: Future Number of Occurrences: 1 Standing Expiration Date: 12/12/2023 ECHO Standing Status: Future Standing Expiration Date: 12/12/2023 Order Specific Question: Disease / Condition: Answer: Murmur - initial evaluation when reasonable suspicion of valvular or structural heart disease Instructions Given to Patient: Instructions located in the after visit summary. Patient given verbal and written preop instructions and voices comprehension and compliance. SIGNATURE: Kristine Ayon APRN.CNP PATIENT NAME: Lety Glover DATE: December 11, 2022 TIME: 3:06 PM PAGER/CONTACT #: documented in this encounter [facility] 12-08-2022 Miscellaneous Notes TOTAL JOINT COMPLETE CARE PROGRAM PRE-OPERATIVE TEACHING Service D/ate: 12/16/2022 Service Time: 11:33 AM Date of : 1940 Gender: female Date of Surgery: 12/28/22 Procedure: Left Total Knee Replacement Complete Care Program was discussed with the patient: Packaging Technician Identification: Patient identified a after school caregiver to help when discharged to home: lives alone. Doesn't have anyone then states her daughter works 6 days a week. Home Environment: Home Layout: Apartment, Entry Steps: 0, Bedroom Location: 1st floor, Bathroom Location: 1st floor, and walk in shower and tub shower. Pt owns walker, cane. Discussed with patient importance of attending joint education class and provided date and times of class: YES declined. Patient received Joint Education Binder: Yes Patient plans to go to rehab upon discharge. She states she discussed this with the doctor since she lives alone. I explained that is not a qualification for insurance to cover rehab and discussed HHC options and how the process works. SIGNATURE: KAILEE Landry PATIENT NAME: Lety Glover DATE: December 08, 2022 TIME: 11:14 AM documented in this encounter [facility] 08-18-2022 Note HNO ID: [id number] Author: Brennan Monsivais MD Service: ? Author Type: Physician Type: Progress Notes Filed: 08/18/2022 9:02 AM Note Text: CONSULT ORTHOPAEDIC: KNEE PRIMARY CARE PHYSICIAN: David Santana MD REFERRING PROVIDER: No referring provider defined for this encounter. ASSESSMENT AND PLAN Impression: This is a very nice 81-year-old woman who was referred to me by my partner Dr. Sorin Cooley. He previously did a right total hip and a right total knee on her, and she is incredibly happy with the results of these. She now has left knee severe osteoarthritis. She has tried a brace. She has tried injections. She has tried therapy. At this point she is considering joint replacement. She has some stuff going on at home with selling her house, and is a little bit on the fence about timing. I have discussed risks and benefits of operative versus nonoperative treatment with her at length, expected recovery times, and possible complications. She understands these well. She will call the office when she would like to see us again, and that point she may be considering knee replacement but for now would like to put it on hold. All questions answered today. I spent a total of approximately 25 minutes on the date of the service which included preparing to see the patient, [id number] patient care, completing clinical documentation, obtaining and/or reviewing separately obtained history, performing a medically appropriate examination, counseling and educating the patient/family/caregiver, ordering medications, tests, or procedures, independently interpreting results (not separately reported), communicating results to the patient/family/caregiver, and care coordination (not separately reported). The patient has been ordered: No orders placed today. CONSULTS: Patient does not require consults for optimization at this time. ACTIVE PROBLEM LIST Hypercholesteremia Osteopenia Muscle Weakness (Generalized) SUBJECTIVE CHIEF COMPLAINT: Knee Pain HPI: Lety Glover is a 81 year old patient here for evaluation and management of left knee pain. Lety Glover has had progressive problems with the knee(s) most of the day over the past 5 year(s) interfering with activities which include exercise, walking, rising from a sitting position, and standing for prolonged periods of time. The problem began limiting activities 1-3 years ago. Currently the pain in the joint is rated at 6 out of 10 with minimal activity. The pain is constant and is located along the outside aspect, in the front, and in the back. The pain is described as aching. Relieving factors include rest and repositioning. There is no specific incident that brought about this pain. Lety Glover also complains of referred pain, stiffness, and locking. FUNCTIONAL STATUS: Climb a flight of stairs or walk up a hill (5.50 METs) Total Joint Arthroplasty: Risk Calculator Lety Glover has a 35.73% chance of NOT returning home at discharge for a Primary total Knee replacement. Lety's estimated Length of Stay is 2 days. Lety's 30 day chance of readmission is 7.16%. Readmission Probability 7.16 % (within 30 days following surgery) Estimated LOS 2 days Discharge Disposition Probability D/C to Home 64.27 % D/C to SNF 35.73 % These calculations are based on the following factors: - 81 years of age - sex is not male - BMI of 28 kg/m2 - NarxCare score of 0 - 0 hospitalizations in the last 12 months - no history of heart disease - no history of diabetes - no history of COPD - no history of anemia - preoperative ambulation: impaired community distances - 0 step(s) to enter home - bed location is on the first floor - bath location is on the first floor - caregiver is inconsistent - home is not more than 150 miles away - PROMIS-10 Mental Health T score not available - Marital status: PREVIOUS TREATMENTS: Medical Treatments: Steroid Injections Left Knee Physical Therapy: Use of Ambulatory Aid, Shoe Wear, Braces, Orthotics, etc., and Activities Modified REVIEW OF SYSTEMS: PAIN ASSESSMENT: See HPI. MUSCULOSKELETAL: See HPI. Risk Factors for Total Joint Arthroplasty (TJA) Obesity normal High: BMI > 40 Moderate: BMI 30-40 Normal: BMI < 30 Diabetes normal High: A1C > 8 Moderate: A1C 7-8 Normal: A1C < 7 Smoking normal High: Current smoker Normal: Non smoker Anemia normal High: Hgb < 11.5 (women) N/A: Hgb >= 11.5 (women) Nutritional Status normal High: Alb<3.4, or prealb<15, or serum transferrin<200, or total lymphocyte count<1500 Normal: normal labs COPD normal High: dx of COPD Normal: no dx of COPD MRSA normal High: dx of MRSA or positive lab test Normal: no MRSA CKD normal High: eGFR<60 Moderate: eGFR 60-89 Normal: eGFR>90 Hx of DVT / PE normal High: dx of DVT / PE Normal: no dx of DVT / PE Narcotics Use normal High:NarxCare >=300 Moderate: 100-299 Normal: 0 (more content not included)... [facility] 08-18-2022 History of Present illness Narrative CONSULT ORTHOPAEDIC: KNEE PRIMARY CARE PHYSICIAN: David Santana MD REFERRING PROVIDER: No referring provider defined for this encounter. ASSESSMENT & PLAN Impression: This is a very nice 81-year-old woman who was referred to me by my partner Dr. Sorin Cooley. He previously did a right total hip and a right total knee on her, and she is incredibly happy with the results of these. She now has left knee severe osteoarthritis. She has tried a brace. She has tried injections. She has tried therapy. At this point she is considering joint replacement. She has some stuff going on at home with selling her house, and is a little bit on the fence about timing. I have discussed risks and benefits of operative versus nonoperative treatment with her at length, expected recovery times, and possible complications. She understands these well. She will call the office when she would like to see us again, and that point she may be considering knee replacement but for now would like to put it on hold. All questions answered today. I spent a total of approximately 25 minutes on the date of the service which included preparing to see the patient, [id number] patient care, completing clinical documentation, obtaining and/or reviewing separately obtained history, performing a medically appropriate examination, counseling and educating the patient/family/caregiver, ordering medications, tests, or procedures, independently interpreting results (not separately reported), communicating results to the patient/family/caregiver, and care coordination (not separately reported). The patient has been ordered: No orders placed today. CONSULTS: Patient does not require consults for optimization at this time. ACTIVE PROBLEM LIST Hypercholesteremia Osteopenia Muscle Weakness (Generalized) SUBJECTIVE CHIEF COMPLAINT: Knee Pain HPI: Lety Glover is a 81 year old patient here for evaluation and management of left knee pain. Lety Glover has had progressive problems with the knee(s) most of the day over the past 5 year(s) interfering with activities which include exercise, walking, rising from a sitting position, and standing for prolonged periods of time. The problem began limiting activities 1-3 years ago. Currently the pain in the joint is rated at 6 out of 10 with minimal activity. The pain is constant and is located along the outside aspect, in the front, and in the back. The pain is described as aching. Relieving factors include rest and repositioning. There is no specific incident that brought about this pain. Lety Glover also complains of referred pain, stiffness, and locking. FUNCTIONAL STATUS: Climb a flight of stairs or walk up a hill (5.50 METs) Total Joint Arthroplasty: Risk Calculator Lety Glover has a 35.73% chance of NOT returning home at discharge for a Primary total Knee replacement. Lety's estimated Length of Stay is 2 days. Lety's 30 day chance of readmission is 7.16%. Readmission Probability 7.16 % (within 30 days following surgery) Estimated LOS 2 days Discharge Disposition Probability D/C to Home 64.27 % D/C to SNF 35.73 % These calculations are based on the following factors: - 81 years of age - sex is not male - BMI of 28 kg/m2 - NarxCare score of 0 - 0 hospitalizations in the last 12 months - no history of heart disease - no history of diabetes - no history of COPD - no history of anemia - preoperative ambulation: impaired community distances - 0 step(s) to enter home - bed location is on the first floor - bath location is on the first floor - caregiver is inconsistent - home is not more than 150 miles away - PROMIS-10 Mental Health T score not available - Marital status: PREVIOUS TREATMENTS: Medical Treatments: Steroid Injections Left Knee Physical Therapy: Use of Ambulatory Aid, Shoe Wear, Braces, Orthotics, etc., and Activities Modified REVIEW OF SYSTEMS: PAIN ASSESSMENT: See HPI. MUSCULOSKELETAL: See HPI. Risk Factors for Total Joint Arthroplasty (TJA) Obesity normal High: BMI > 40 Moderate: BMI 30-40 Normal: BMI < 30 Diabetes normal High: A1C > 8 Moderate: A1C 7-8 Normal: A1C < 7 Smoking normal High: Current smoker Normal: Non smoker Anemia normal High: Hgb < 11.5 (women) N/A: Hgb >= 11.5 (women) Nutritional Status normal High: Alb<3.4, or prealb<15, or serum transferrin<200, or total lymphocyte count<1500 Normal: normal labs COPD normal High: dx of COPD Normal: no dx of COPD MRSA normal High: dx of MRSA or positive lab test Normal: no MRSA CKD normal High: eGFR<60 Moderate: eGFR 60-89 Normal: eGFR>90 Hx of DVT / PE normal High: dx of DVT / PE Normal: no dx of DVT / PE Narcotics Use normal High:NarxCare >=300 Moderate: 100-299 Normal: 0-99 JOSE normal High: dx of JOSE N/A: no dx of JOSE Coagulation normal High:PT Sec>13, or PT INR>1.3, or APTT>32.4, or Plt ct<150k Moderate: on anticoag but none of the above Normal: none Other Risk Factors None PAST MEDICAL HISTORY Diagnosis Date Hyperlipidemia PAST SURGICAL HISTORY Procedure Laterality Date ARTHRP ACETBLR/PROX FEM PROSTC AGRFT/ALGRFT Right 11/2011 Hip replacement, total ARTHRP KNE CONDYLE&PLATU MEDIAL&LAT COMPARTMENTS Right 2006 Knee replacement, total NONE tubal preg OPEN REPAIR OF ROTATOR CUFF ACUTE Right Rotator cuff repair TOTAL ABDOMINAL HYSTERECT W/WO RMVL TUBE OVARY Hysterectomy, NIMA FAMILY HISTORY Problem Relation Age of Onset None Father Social History Tobacco Use Smoking status: Never Smokeless tobacco: Never Tobacco comments: No Substance Use Topics Alcohol use: Yes Comment: rarely Drug use: No ALLERGIES: Codeine, Tramadol Hcl, Clarithromycin, and Hydrocodone MEDICATIONS: VITAMIN E ORAL Take by mouth once daily. CALCIUM CARBONATE (CALCIUM 300 ORAL) Take by mouth. OMEGA-3 FATTY ACIDS (OMEGA 3 ORAL) Take by mouth. multivitamin ORAL tablet Take 1 tablet by mouth once daily. PHYSICAL EXAM: There were no vitals taken for this visit. All other systems deferred. GENERAL: Appears healthy, well-nourished, no deformities. HABITUS: Normal GAIT: Antalgic to the left KNEE EXAM: Left: Alignment: Varus deformity, Partially Correctable Range of motion is 5 degrees in extension and 120 degrees of flexion. Extension La degrees Pain with ROM: Yes Effusion: Slight Tender to the palpation of Medial femoral condyle, Lateral femoral condyle, Medial joint line, and Lateral joint line Pain with patellar compression: Yes Stability: Anterior/Posterior stable and Varus/Valgus stable Hip Exam: flexion to 100+ degrees, full extension, internal/external rotation adequate, and no pain with log roll Neurovascular Status: Sensation Intact, Moves foot and ankle up & down, and 2+ dorsalis pedis DATA: Diagnostic tests reviewed for today's visit: Left knee X-Ray: Severe tri-compartmental degeneration The following conditions were addressed during the office visit today: none SIGNATURE: Brennan Monsivais MD PATIENT NAME: Lety Glover DATE: August 18, 2022 TIME: 8:32 AM documented in this encounter [facility] 07-17-2022 Note HNO ID: [id number] Author: Sorin Cooley MD Service: ? Author Type: Physician Type: Progress Notes Filed: 07/17/2022 9:28 AM Note Text: [facility] Department of Orthopedics Sorin Cooley MD FACS 81-year-old female here today regarding her left knee. She is undergone successful right total knee and right total hip by me in the past that resolved. She is here for increasing left knee pain. She has received a couple of cortisone injections by another provider they no longer work. She states she cannot walk 2 blocks without discomfort. In the house it does not seem to bother her. Current Outpatient Medications Medication Sig VITAMIN E ORAL Take by mouth once daily. CALCIUM CARBONATE (CALCIUM 300 ORAL) Take by mouth. OMEGA-3 FATTY ACIDS (OMEGA 3 ORAL) Take by mouth. multivitamin ORAL tablet Take 1 tablet by mouth once daily. No current facility-administered medications for this visit. ACTIVE PROBLEM LIST Hypercholesteremia Osteopenia Muscle Weakness (Generalized) PAST SURGICAL HISTORY Procedure Laterality Date ARTHRP ACETBLR/PROX FEM PROSTC AGRFT/ALGRFT Right 11/2011 Hip replacement, total ARTHRP KNE CONDYLEANDPLATU MEDIALANDLAT COMPARTMENTS Right 2006 Knee replacement, total NONE tubal preg OPEN REPAIR OF ROTATOR CUFF ACUTE Right Rotator cuff repair TOTAL ABDOMINAL HYSTERECT W/WO RMVL TUBE OVARY Hysterectomy, NIMA PAST MEDICAL HISTORY Diagnosis Date Hyperlipidemia FAMILY HISTORY Problem Relation Age of Onset None Father Social History Tobacco Use Smoking status: Never Smokeless tobacco: Never Tobacco comments: No Substance Use Topics Alcohol use: Yes Comment: rarely Drug use: No ALLERGIES Allergen Reactions Codeine GI Upset Severe vomiting Tramadol Hcl Intolerance Severe vomiting. Clarithromycin Intolerance Severe headache Hydrocodone GI Upset REVIEW OF SYSTEMS General: NO fever, NO chills, NO night sweats Constitutional:NO recent unwanted weight loss, NO excessive weight Skin: NO rashes, NO chronic skin condition Head: NO seizures, NO headaches, NO dizziness Respiratory: NO cough Cardiovascular: NO chest pain Gastrointestinal: NO nausea, NO vomiting, NO abdominal painEndocrine: NO thyroid problems, NO heat intolerance Musculoskeletal: see HPI Neurologic: no numbness or tingling in extremities Examination: 81-year-old female no acute distress. Alert and oriented x3. 5 feet 4 inches tall 166 pounds. Examination reveals swelling around the knee range of motion is full extension with flexion 95 degrees with a fixed varus alignment. Radiologic review: X-rays ordered by me and to my interpretation shows severe arthritis of the knee. Impression: Left knee arthritis #2 left knee varus. We discussed other injection therapies but the patient has declined. She is interested in discussing total knee replacement. We are going to refer her to Dr. Brennan Monsivais At the conclusion of the office visit, the patient was asked if they had any questions regarding the diagnosis or care. Also, ample time was provided for the patient to ask any questions regarding the diagnosis therefore plan of care. All the patient's questions if asked were answered to their satisfaction. This note was partially generated using [employer] voice recognition system and as such may contain grammatical or word errors Sorin Cooley MD [facility] 07-17-2022 History of Present illness Narrative [facility] Department of Orthopedics Sorin Cooley MD FACS 81-year-old female here today regarding her left knee. She is undergone successful right total knee and right total hip by me in the past that resolved. She is here for increasing left knee pain. She has received a couple of cortisone injections by another provider they no longer work. She states she cannot walk 2 blocks without discomfort. In the house it does not seem to bother her. Current Outpatient Medications Medication Sig VITAMIN E ORAL Take by mouth once daily. CALCIUM CARBONATE (CALCIUM 300 ORAL) Take by mouth. OMEGA-3 FATTY ACIDS (OMEGA 3 ORAL) Take by mouth. multivitamin ORAL tablet Take 1 tablet by mouth once daily. No current facility-administered medications for this visit. ACTIVE PROBLEM LIST Hypercholesteremia Osteopenia Muscle Weakness (Generalized) PAST SURGICAL HISTORY Procedure Laterality Date ARTHRP ACETBLR/PROX FEM PROSTC AGRFT/ALGRFT Right 11/2011 Hip replacement, total ARTHRP KNE CONDYLE&PLATU MEDIAL&LAT COMPARTMENTS Right 2006 Knee replacement, total NONE tubal preg OPEN REPAIR OF ROTATOR CUFF ACUTE Right Rotator cuff repair TOTAL ABDOMINAL HYSTERECT W/WO RMVL TUBE OVARY Hysterectomy, NIMA PAST MEDICAL HISTORY Diagnosis Date Hyperlipidemia FAMILY HISTORY Problem Relation Age of Onset None Father Social History Tobacco Use Smoking status: Never Smokeless tobacco: Never Tobacco comments: No Substance Use Topics Alcohol use: Yes Comment: rarely Drug use: No ALLERGIES Allergen Reactions Codeine GI Upset Severe vomiting Tramadol Hcl Intolerance Severe vomiting. Clarithromycin Intolerance Severe headache Hydrocodone GI Upset REVIEW OF SYSTEMS General: NO fever, NO chills, NO night sweats Constitutional:NO recent unwanted weight loss, NO excessive weight Skin: NO rashes, NO chronic skin condition Head: NO seizures, NO headaches, NO dizziness Respiratory: NO cough Cardiovascular: NO chest pain Gastrointestinal: NO nausea, NO vomiting, NO abdominal painEndocrine: NO thyroid problems, NO heat intolerance Musculoskeletal: see HPI Neurologic: no numbness or tingling in extremities Examination: 81-year-old female no acute distress. Alert and oriented x3. 5 feet 4 inches tall 166 pounds. Examination reveals swelling around the knee range of motion is full extension with flexion 95 degrees with a fixed varus alignment. Radiologic review: X-rays ordered by me and to my interpretation shows severe arthritis of the knee. Impression: Left knee arthritis #2 left knee varus. We discussed other injection therapies but the patient has declined. She is interested in discussing total knee replacement. We are going to refer her to Dr. Brennan Monsivais At the conclusion of the office visit, the patient was asked if they had any questions regarding the diagnosis or care. Also, ample time was provided for the patient to ask any questions regarding the diagnosis therefore plan of care. All the patient's questions if asked were answered to their satisfaction. This note was partially generated using [employer] voice recognition system and as such may contain grammatical or word errors Sorin Cooley MD documented in this encounter [facility] documented as of this encounter (statuses as of 07/17/2022) [facility] History of Past illness Narrative* Problem Noted Date Resolved Date Rotator cuff arthropathy 09/27/2013 017 Hip arthritis 10/14/2011 03/23/2012 Hip pain 10/14/2011 03/12/2017 documented as of this encounter (statuses as of 08/18/2022) [facility] History of Past illness Narrative* Problem Noted Date Resolved Date Rotator cuff arthropathy 09/27/2013 017 Hip arthritis 10/14/2011 03/23/2012 Hip pain 10/14/2011 03/12/2017 documented as of this encounter (statuses as of 12/08/2022) [facility] History of Past illness Narrative* Problem Noted Date Resolved Date Rotator cuff arthropathy 09/27/2013 017 Muscle weakness (generalized) 01/22/2012 Hip arthritis 10/14/2011 03/23/2012 Hip pain 10/14/2011 03/12/2017 documented as of this encounter (statuses as of 12/11/2022) [facility] History of Past illness Narrative* Problem Noted Date Resolved Date Rotator cuff arthropathy 09/27/2013 017 Muscle weakness (generalized) 01/22/2012 Hip arthritis 10/14/2011 03/23/2012 Hip pain 10/14/2011 03/12/2017 documented as of this encounter (statuses as of 12/16/2022) [facility] History of Past illness Narrative* Problem Noted Date Resolved Date Rotator cuff arthropathy 09/27/2013 017 Muscle weakness (generalized) 01/22/2012 Hip arthritis 10/14/2011 03/23/2012 Hip pain 10/14/2011 03/12/2017 documented as of this encounter (statuses as of 12/31/2022) [facility] History of Past illness Narrative* Problem Noted Date Resolved Date Rotator cuff arthropathy 09/27/2013 017 Muscle weakness (generalized) 01/22/2012 Hip arthritis 10/14/2011 03/23/2012 Hip pain 10/14/2011 03/12/2017 documented as of this encounter (statuses as of 01/01/2023) [address]15-2014 History of Past illness Narrative* Problem Noted Date Resolved Date Rotator cuff arthropathy 09/27/2013 017 Muscle weakness (generalized) 01/22/2012 Hip arthritis 10/14/2011 03/23/2012 Hip pain 10/14/2011 03/12/2017 documented as of this encounter (statuses as of 01/02/2023) [place] [id number] History of Past illness Narrative* Problem Noted Date Resolved Date Rotator cuff arthropathy 09/27/2013 017 Muscle weakness (generalized) 01/22/2012 Hip arthritis 10/14/2011 03/23/2012 Hip pain 10/14/2011 03/12/2017 documented as of this encounter (statuses as of 01/06/2023) [place] [id number] History of Past illness Narrative* Problem Noted Date Resolved Date Rotator cuff arthropathy 09/27/2013 017 Muscle weakness (generalized) 01/22/2012 Hip arthritis 10/14/2011 03/23/2012 Hip pain 10/14/2011 03/12/2017 documented as of this encounter (statuses as of 01/07/2023) [place] [id number] History of Past illness Narrative* Problem Noted Date Resolved Date Rotator cuff arthropathy 09/27/2013 017 Muscle weakness (generalized) 01/22/2012 Hip arthritis 10/14/2011 03/23/2012 Hip pain 10/14/2011 03/12/2017 documented as of this encounter (statuses as of 01/12/2023) [address]15-2014 History of Past illness Narrative* Problem Noted Date Resolved Date Rotator cuff arthropathy 09/27/2013 017 Muscle weakness (generalized) 01/22/2012 Hip arthritis 10/14/2011 03/23/2012 Hip pain 10/14/2011 03/12/2017 documented as of this encounter (statuses as of 01/15/2023) [place] [id number] History of Past illness Narrative* Problem Noted Date Resolved Date Rotator cuff arthropathy 09/27/2013 017 Muscle weakness (generalized) 01/22/2012 Hip arthritis 10/14/2011 03/23/2012 Hip pain 10/14/2011 03/12/2017 documented as of this encounter (statuses as of 01/16/2023) [facility] History of Past illness Narrative* Problem Noted Date Resolved Date Rotator cuff arthropathy 09/27/2013 017 Muscle weakness (generalized) 01/22/2012 Hip arthritis 10/14/2011 03/23/2012 Hip pain 10/14/2011 03/12/2017 documented as of this encounter (statuses as of 01/21/2023) [facility] History of Past illness Narrative* Problem Noted Date Resolved Date Rotator cuff arthropathy 09/27/2013 017 Muscle weakness (generalized) 01/22/2012 Hip arthritis 10/14/2011 03/23/2012 Hip pain 10/14/2011 03/12/2017 documented as of this encounter (statuses as of 03/19/2023) [facility] History of Past illness Narrative* Problem Noted Date Resolved Date Rotator cuff arthropathy 09/27/2013 017 Muscle weakness (generalized) 01/22/2012 Hip arthritis 10/14/2011 03/23/2012 Hip pain 10/14/2011 03/12/2017 documented as of this encounter (statuses as of 03/19/2023) [facility] History of Past illness Narrative* Problem Noted Date Diagnosed Date Resolved Date Rotator cuff arthropathy 09/27/2013 Muscle weakness (generalized) 01/22/2012 12/11/2022 Hip arthritis 10/14/2011 03/23/2012 Hip pain 10/14/2011 03/12/2017 documented as of this encounter (statuses as of 03/30/2023) [facility] [place] [facility] Diagnosis Arthritis of knee- Primary Unspecified arthropathy, lower [facility] of knee- Primary Unspecified arthropathy, lower leg [facility] Primary osteoarthritis of left knee- Primary Primary localized osteoarthrosis, lower leg Primary osteoarthritis of left knee Primary localized osteoarthrosis, lower leg [facility] [place] [facility] Diagnosis Pre-operative examination- Primary Preoperative examination, unspecified Murmur Undiagnosed cardiac murmurs Essential hypertension, benign Hypercholesteremia Pure hypercholesterolemia Gastroesophageal reflux disease, unspecified whether esophagitis present History of right knee joint replacement History of right hip replacement Class 1 obesity due to excess calories with serious comorbidity and body mass index (BMI) of 30.0 to 30.9 in adult Primary osteoarthritis of left knee Primary localized osteoarthrosis, lower leg [facility] [place] [facility] Diagnosis Chronic pain of left knee- Primary Pain in joint, lower leg [facility] [place] [facility] Diagnosis Status post left knee replacement- Primary [facility] [place] [facility] Diagnosis Arthrofibrosis of knee joint, left- Primary Status post left knee replacement documented in this encounter [facility] note* Diagnosis Arthrofibrosis of knee joint, left- Primary Arthrofibrosis of total knee arthroplasty, initial encounter ([facility]) documented in this encounter [facility] note* Diagnosis Status post left knee replacement- Primary Arthrofibrosis of knee joint, left documented in this encounter [facility] home Plan of care note* Visit Details Visit Type -PT SOC Discipline -Physical Therapy Problems Problem Description Start Date Status Goals Interve ntions Medication Education Disciplines: Skilled Services 12/30/2022 Active 1 goal linked to scheduled/document ed intervention 1 goal intervention scheduled/document ed in this visit Sepsis Disciplines: Skilled Services 12/30/2022 Active 1 goal linked to scheduled/document ed intervention 1 goal intervention scheduled/document ed in this visit Physician Specific Parameters Disciplines: Skilled Services 12/30/2022 Active 1 goal linked to scheduled/document ed intervention 1 goal intervention scheduled/document ed in this visit Risk for Falls Disciplines: Skilled Services 12/30/2022 Active 1 goal linked to scheduled/document ed intervention 1 goal intervention scheduled/document ed in this visit Pain Disciplines: Skilled Services 12/30/2022 Active 1 goal linked to scheduled/document ed intervention 1 goal intervention scheduled/document ed in this visit Nutrition/Hydrat ion Disciplines: Skilled Services 12/30/2022 Active 1 goal linked to scheduled/document ed intervention 1 goal intervention scheduled/document ed in this visit High Risk Medications Disciplines: Skilled Services 12/30/2022 Active 1 goal linked to scheduled/document ed intervention 2 goal interventions scheduled/document ed in this visit Discharge Disciplines: Skilled Services 12/30/2022 Active 1 goal linked to scheduled/document ed intervention 1 goal intervention scheduled/document ed in this visit Advance Directives Disciplines: Skilled Services 12/30/2022 Resolved on 12/30/2022 1 goal linked to scheduled/document ed intervention 1 goal intervention scheduled/document ed in this visit PT Impaired muscle performance and/or ROM Disciplines: PT 12/30/2022 Active 1 goal linked to scheduled/document ed intervention 1 goal intervention scheduled/document ed in this visit PT Impaired mobility Disciplines: PT 12/30/2022 Active 2 goals linked to scheduled/document ed interventions 2 goal interventions scheduled/document ed in this visit PT Impaired gait Disciplines: PT 12/30/2022 Active 1 goal linked to scheduled/document ed intervention 1 goal intervention scheduled/document ed in this visit PT Orthopedic Condition Disciplines: PT 12/30/2022 Active 1 goal linked to scheduled/document ed intervention 3 goal interventions scheduled/document ed in this visit PT Learning Assessment Disciplines: PT 12/30/2022 Active 1 goal linked to scheduled/document ed intervention 1 goal intervention scheduled/document ed in this visit Goals Goal Associated Problem Outcome Goal Met? Visit Notes Patient/caregiver will demonstrate ability to obtain, store, identify and administer ordered medications, keep accurate medication list in home, and adhere to medication schedule Description: Patient/caregiver will demonstrate ability to obtain, store, identify and administer ordered medications, keep accurate medication list in home, and adhere to medication schedule by 02/27/23. Medication Education No Patient/caregiver will be able to identify and report symptoms of sepsis Description: Patient/caregiver will be able to identify signs/symptoms of sepsis infection and will verbalize actions to take if suspected by 02/27/23. Sepsis No Patient to maintain parameters within physician-specified ranges throughout certification period Physician Specific Parameters No Manage Risk for falls Description: Patient/caregiver will verbalize knowledge of individualized fall prevention strategies by 02/27/23. Risk for Falls No Manage Pain Description: Patient/caregiver will verbalize knowledge and understanding of appropriate techniques to control pain, including pain medication and non-pharmacological techniques. Patient will verbalize or demonstrate an acceptable level of pain as evidenced by a pain score of 0-2/10 and improvement in ability to perform activities of daily living to be achieved by 02/27/23. Pain No Manage Nutrition/Hydration Description: Patient/caregiver will verbalize/demonstrate knowledge of prescribed diet and/or healthy nutrition to be achieved by 02/27/23. Nutrition/Hydration No Patient/caregiver will teach back high risk medication side effect and precaution education High Risk Medications No Manage discharge planning Description: Patient/caregiver will verbalize understanding of ongoing discharge plan provided related to disease management, arrangements for outpatient and/or community services, obtaining medications, supplies, and DME, as needed throughout certification period. Discharge No Patient/caregiver will make healthcare providers aware of and any changes to Advance Directives throughout certification period Advance Directives Completed Yes met Improved Muscle Performance and/or ROM Description: LTG: Patient will demonstrate improved muscle performance to meet functional goals as evidenced by ability to tolerate 15 min of each exercise activity, to be achieved by 01/16/23. LTG: Patient and/or caregiver will verbalize/demonstrate independence with home exercise program, to improve functional mobility, to be achieved by 01/16/23. LTG: Patient will demonstrate improved left knee active range of motion to 0-90 degrees, to meet functional goals, to be achieved by 01/16/23. PT Impaired muscle performance and/or ROM No Improved Transfers Description: STG: Patient will demonstrate safe transfers to/from bed, chair and toilet independently, to be achieved by 01/09/23. LTG: Patient will demonstrate safe transfers to/from shower/tub and car with supervision, to be achieved by 01/16/23. PT Impaired mobility No Improved Bed Mobility Description: STG: Patient will demonstrate improved bed mobility, ability to position self and supine <> sit independently to be achieved by 01/09/23. PT Impaired mobility No Improved Gait Description: LTG: Patient will demonstrate improved gait ability as evidenced by ambulation 150 feet with front wheeled walker independently with AD, in order to navigate freely in home for ADL, to be achieved by 01/16/23. PT Impaired gait No Manage Orthopedic Condition Description: Improve patient and/or caregiver understanding of post surgical and/or non-surgical orthopedic intervention management as evidenced by patient and/or caregiver able to verbalize, demonstrate, and teach back instruction, to be achieved by 01/16/23. PT Orthopedic Condition No Demonstrate understanding of education Description: Patient and/or caregiver will understand educational instruction to be achieved by 01/16/23. PT Learning Assessment No Interventions Intervention Associated Problem/Goal Status Variance Visit Notes Medication Education Description: Evaluate/instruct patient/caregiver on obtaining, storing, identifying and administering ordered medications as well as keeping accurate medication list in the home and adhereing to medication schedule Problem:Medication Education Goal:Patient/caregive r will demonstrate ability to obtain, store, identify and administer ordered medications, keep accurate medication list in home, and adhere to medication schedule Completed Patient instructed on importance of keeping accurate medication list in home, adhering to medication schedule, proper storage of medications, Medication, route, dose, frequency, purpose, and side effects of pain / antiplatelet medications, med discharge planner set up and med diary and reminders. Risk of Sepsis Description: Patient is at risk for sepsis. Monitor closely for s/s of sepsis. Problem:Sepsis Goal:Patient/caregive r will be able to identify and report symptoms of sepsis Completed SPO2 Description: Notify Dr. Monsivais if pulse ox is <92% at rest. Problem:Physician Specific Parameters Goal:Patient to maintain parameters within physician-specified ranges throughout certification period Completed Instruct on individual fall risk factors and strategies to prevent falls and injuries caused by falls. Problem:Risk for Falls Goal:Manage Risk for falls Completed PT: Patient and Caregiver instructed on Eliminating Environmental Hazards: Keep pathways clear, Keep rooms and walkways well lit and Wear supportive shoes or non-skid socks Managing Impaired Functional Mobility: Use assistive device(s): front wheeled walker Instruct on pain and instruct on strategies to control pain Problem:Pain Goal:Manage Pain Completed patient and caregiver instructed on techniques to control pain including Pharmacological measures and Non-Pharmacological measures; rest, positioning/elevation, use of DME/assistive devices and use of thermal modalities, apply ice to affected area for the following prescribed frequency: 20 min on after activity. Define patient s appetite/hydration status and implement strategies to improve compliance with prescribed diet and/or healthy nutrition. Problem:Nutrition/Hyd ration Goal:Manage Nutrition/Hydration Completed instructed patient and caregiver on implementing strategies to comply with adequate hydration Opioids- educated on high risk medication Problem:High Risk Medications Goal:Patient/caregive r will teach back high risk medication side effect and precaution education Completed patient educated on taking medication(s) as prescribed by provider. Do not stop medication or alter doses without speaking with your provider. Discuss medication effectiveness or side effect concerns with your provider and home care team. Only take opioids as prescribed, do not share your medications, and take proper precautions in storing and properly disposing of opioids once no longer needed. Possible side effects of opioid medication including sedation, decreased rate of breathing, and constipation. Report over sedation to prescribing provider and practice deep breathing techniques every hour while awake. Prevent constipation by increasing water and fiber intake, increasing activity as tolerated, and use stool softener(s) as prescribed. Antiplatelet- educated on high risk medication Problem:High Risk Medications Goal:Patient/caregive r will teach back high risk medication side effect and precaution education Completed patient educated on taking medication(s) as prescribed by provider. Do not stop medication or alter doses without speaking with your provider. Discuss medication effectiveness or side effect concerns with your provider and home care team. Discuss all medications you are taking, even [id number] medicines, with your provider and pharmacist since many drugs can interact with antiplatelet medications. If you forget to take a dose, DO NOT take a double dose. Take the missed dose as soon as possible on the same day. DO NOT take a double dose the next day to make up for the missed dose. Watch for signs of abnormal or excessive bleeding and bruising (refer to Bleeding Precautions education). Call your health care provider right away if you suspect something is wrong. Instruct on ongoing discharge plan Problem:Discharge Goal:Manage discharge planning Completed Ongoing Discharge plan: Discharge plan discussed with patient and caregiver including frequency and duration for home PT and plan for transition to: outpatient therapy. Determine patient's Advance Directive Status Description: Patient does have advance directives. Patient's Advance Directives determined to be not available in EMR Healthcare DPOA and Living Will. Problem:Advance Directives Goal:Patient/caregive r will make healthcare providers aware of and any changes to Advance Directives throughout certification period Completed Discussed Advance Directives with Patient and/or Caregiver. Referred patient to Home Care handbook for further information on Healthcare DPOA & Living Will. Physical Therapy Therapeutic Exercises Problem:PT Impaired muscle performance and/or ROM Goal:Improved Muscle Performance and/or ROM Completed patient instructed on strengthening and range of motion exercises including LE with verbal, tactile, visual and written cues for proper form and frequency. patient instructed to perform home exercise program three times a day which included ankle pumps / Quad sets / gluteal sets / AAROM knee flex x 10. deep breathing x 5. Physical Therapy Transfer Training Problem:PT Impaired mobility Goal:Improved Transfers Completed Transfer training and instruction to patient on safe transfers to and from bed and toilet with contact guard assist and verbal, tactile and visual cues for backing up fully to seat / proper use of UE. Physical Therapy Bed Mobility Training Problem:PT Impaired mobility Goal:Improved Bed Mobility Completed Bed mobility training and instruction to patient, including supine<>sit with minimal assist and verbal, tactile and visual cues for bringing legs into / out of bed as a unit. Physical Therapy Gait Training Problem:PT Impaired gait Goal:Improved Gait Completed Gait training and instruction to patient on safe ambulation with front wheeled walker for 30 feet with contact guard assist, with verbal, tactile and visual cues for corrections of gait deviations including emphasis on upright posture and heel to toe on left. Instruct on orthopedic precautions and weight bearing restrictions Description: Orthopedic precautions including left total knee: no crossing legs, no knee flexed over pillow at rest, no kneeling, no squatting and no twisting. Weight bearing restrictions include: WBAT of involved extremity. Problem:PT Orthopedic Condition Goal:Manage Orthopedic Condition Completed patient instructed on orthopedic precautions. Instruct on management of edema Problem:PT Orthopedic Condition Goal:Manage Orthopedic Condition Completed Instruct patient on management of edema including elevation of left LE above the level of the heart and ice. Instruct on self-management of post surgical and/or non-surgical orthopedic intervention Problem:PT Orthopedic Condition Goal:Manage Orthopedic Condition Completed patient instructed on staying well hydrated, signs and symptoms of infection, signs and symptoms of DVT/PE, instructed on when to call provider and instructed on when to call 911. Instruct and educate on knowledge deficits Problem:PT Learning Assessment Goal:Demonstrate understanding of education Completed patient verbalize and/or demonstrate understanding of physical therapy education including orthopedic condition management, surgical precautions, pain management, nutrition, fall prevention strategies, home safety, integumentary and incision/wound care management, infection control precautions, functional activity and home exercise program. Education methods include: verbal cues, tactile cues, written instructions, visual cues and teach back. Further education required to improve knowledge and compliance with orthopedic condition management, surgical precautions, pain management, nutrition, fall prevention strategies, home safety, integumentary and incision/wound care management, infection control precautions, functional activity and home exercise program. [facility] Visit Details Visit Type -PT ROUTINE Discipline -Physical Therapy Problems Problem Description Start Date Status Goals Interve ntions Sepsis Disciplines: Skilled Services 12/30/2022 Active 1 goal linked to scheduled/document ed intervention 1 goal intervention scheduled/document ed in this visit Physician Specific Parameters Disciplines: Skilled Services 12/30/2022 Active 1 goal linked to scheduled/document ed intervention 1 goal intervention scheduled/document ed in this visit Risk for Falls Disciplines: Skilled Services 12/30/2022 Active 1 goal linked to scheduled/document ed intervention 1 goal intervention scheduled/document ed in this visit Pain Disciplines: Skilled Services 12/30/2022 Active 1 goal linked to scheduled/document ed intervention 1 goal intervention scheduled/document ed in this visit PT Impaired muscle performance and/or ROM Disciplines: PT 12/30/2022 Active 1 goal linked to scheduled/document ed intervention 1 goal intervention scheduled/document ed in this visit PT Impaired mobility Disciplines: PT 12/30/2022 Active 2 goals linked to scheduled/document ed interventions 2 goal interventions scheduled/document ed in this visit PT Impaired gait Disciplines: PT 12/30/2022 Active 1 goal linked to scheduled/document ed intervention 1 goal intervention scheduled/document ed in this visit PT Orthopedic Condition Disciplines: PT 12/30/2022 Active 1 goal linked to scheduled/document ed intervention 3 goal interventions scheduled/document ed in this visit PT Learning Assessment Disciplines: PT 12/30/2022 Active 1 goal linked to scheduled/document ed intervention 1 goal intervention scheduled/document ed in this visit Goals Goal Associated Problem Outcome Goal Met? Visit Notes Patient/caregiver will be able to identify and report symptoms of sepsis Description: Patient/caregiver will be able to identify signs/symptoms of sepsis infection and will verbalize actions to take if suspected by 02/27/23. Sepsis No Patient to maintain parameters within physician-specified ranges throughout certification period Physician Specific Parameters No Manage Risk for falls Description: Patient/caregiver will verbalize knowledge of individualized fall prevention strategies by 02/27/23. Risk for Falls No Manage Pain Description: Patient/caregiver will verbalize knowledge and understanding of appropriate techniques to control pain, including pain medication and non-pharmacological techniques. Patient will verbalize or demonstrate an acceptable level of pain as evidenced by a pain score of 0-2/10 and improvement in ability to perform activities of daily living to be achieved by 02/27/23. Pain No Improved Muscle Performance and/or ROM Description: LTG: Patient will demonstrate improved muscle performance to meet functional goals as evidenced by ability to tolerate 15 min of each exercise activity, to be achieved by 01/16/23. LTG: Patient and/or caregiver will verbalize/demonstrate independence with home exercise program, to improve functional mobility, to be achieved by 01/16/23. LTG: Patient will demonstrate improved left knee active range of motion to 0-90 degrees, to meet functional goals, to be achieved by 01/16/23. PT Impaired muscle performance and/or ROM No Improved Transfers Description: STG: Patient will demonstrate safe transfers to/from bed, chair and toilet independently, to be achieved by 01/09/23. LTG: Patient will demonstrate safe transfers to/from shower/tub and car with supervision, to be achieved by 01/16/23. PT Impaired mobility No Improved Bed Mobility Description: STG: Patient will demonstrate improved bed mobility, ability to position self and supine <> sit independently to be achieved by 01/09/23. PT Impaired mobility No Improved Gait Description: LTG: Patient will demonstrate improved gait ability as evidenced by ambulation 150 feet with front wheeled walker independently with AD, in order to navigate freely in home for ADL, to be achieved by 01/16/23. PT Impaired gait No Manage Orthopedic Condition Description: Improve patient and/or caregiver understanding of post surgical and/or non-surgical orthopedic intervention management as evidenced by patient and/or caregiver able to verbalize, demonstrate, and teach back instruction, to be achieved by 01/16/23. PT Orthopedic Condition No Demonstrate understanding of education Description: Patient and/or caregiver will understand educational instruction to be achieved by 01/16/23. PT Learning Assessment No Interventions Intervention Associated Problem/Goal Status Variance Visit Notes Risk of Sepsis Description: Patient is at risk for sepsis. Monitor closely for s/s of sepsis. Problem:Sepsis Goal:Patient/caregive r will be able to identify and report symptoms of sepsis Completed SPO2 Description: Notify Dr. Monsivais if pulse ox is <92% at rest. Problem:Physician Specific Parameters Goal:Patient to maintain parameters within physician-specified ranges throughout certification period Completed Instruct on individual fall risk factors and strategies to prevent falls and injuries caused by falls. Problem:Risk for Falls Goal:Manage Risk for falls Completed PT: Patient instructed on Eliminating Environmental Hazards: Keep pathways clear, Remove unsafe rugs and Move furniture from pathways Managing Impaired Functional Mobility: Use assistive device(s): front wheeled walker Managing Pain Instruct on pain and instruct on strategies to control pain Problem:Pain Goal:Manage Pain Completed patient instructed on techniques to control pain including Pharmacological measures and Non-Pharmacological measures; rest, positioning/elevation and use of thermal modalities, apply ice to affected area . Physical Therapy Therapeutic Exercises Problem:PT Impaired muscle performance and/or ROM Goal:Improved Muscle Performance and/or ROM Completed patient and caregiver instructed on strengthening and range of motion exercises including Supine : GS,QS,HS, HIPADD, HIP BD, HEEL SLIDES, SAQ, X 10 supine passive ext x 5 mn seated knee flex to 72* with verbal, visual and written cues for technique /reps. patient and caregiver instructed to perform home exercise program twice a day which included hourly ambulation . Physical Therapy Transfer Training Problem:PT Impaired mobility Goal:Improved Transfers Completed Transfer training and instruction to patient on safe transfers to and from shower/tub with minimal assist and verbal cues for technique. pt was not able to get in to her walk in shower [facility] there was no room to stretch out her surgical leg Instead we pu the shower chair in the tub /shower and dtr lifted leg in to the tub Physical Therapy Bed Mobility Training Problem:PT Impaired mobility Goal:Improved Bed Mobility Completed Bed mobility training and instruction to patient, including rolling, supine<>sit and repositioning self with minimal assist and verbal cues for techniqe. Physical Therapy Gait Training Problem:PT Impaired gait Goal:Improved Gait Completed Gait training and instruction to patient on safe ambulation with front wheeled walker for 50'x 2 feet with stand by assist, with verbal and visual cues for corrections of gait deviations including creating a recip pattern and heel toe . Instruct on orthopedic precautions and weight bearing restrictions Description: Orthopedic precautions including left total knee: no crossing legs, no knee flexed over pillow at rest, no kneeling, no squatting and no twisting. Weight bearing restrictions include: WBAT of involved extremity. Problem:PT Orthopedic Condition Goal:Manage Orthopedic Condition Completed patient instructed on orthopedic precautions and weight bearing restrictions. Instruct on management of edema Problem:PT Orthopedic Condition Goal:Manage Orthopedic Condition Completed Instruct patient on management of edema including elevation of LLE above the level of the heart and ice. Instruct on self-management of post surgical and/or non-surgical orthopedic intervention Problem:PT Orthopedic Condition Goal:Manage Orthopedic Condition Completed patient instructed on managagement of orthopedic condition, eating foods with high protein, signs and symptoms of infection, signs and symptoms of DVT/PE and instructed on when to call provider. Instruct and educate on knowledge deficits Problem:PT Learning Assessment Goal:Demonstrate understanding of education Completed patient verbalize and/or demonstrate understanding of physical therapy education including orthopedic condition management, weight bearing precautions, surgical precautions and pain management. Education methods include: verbal cues. Further education required to improve knowledge and compliance with fall prevention strategies, home safety, functional activity and home exercise program. documented in this encounter [facility] home Plan of care note* Visit Details Visit Type -PROFESSOR OF FAMILY MEDICINE ROUTINE Discipline -Physical Therapy Problems Problem Description Start Date Status Goals Interve ntions Medication Education Disciplines: Skilled Services 12/30/2022 Active 1 goal linked to scheduled/document ed intervention 1 goal intervention scheduled/document ed in this visit Sepsis Disciplines: Skilled Services 12/30/2022 Active 1 goal linked to scheduled/document ed intervention 1 goal intervention scheduled/document ed in this visit Physician Specific Parameters Disciplines: Skilled Services 12/30/2022 Active 1 goal linked to scheduled/document ed intervention 1 goal intervention scheduled/document ed in this visit Risk for Falls Disciplines: Skilled Services 12/30/2022 Active 1 goal linked to scheduled/document ed intervention 1 goal intervention scheduled/document ed in this visit Pain Disciplines: Skilled Services 12/30/2022 Active 1 goal linked to scheduled/document ed intervention 1 goal intervention scheduled/document ed in this visit Discharge Disciplines: Skilled Services 12/30/2022 Active 1 goal linked to scheduled/document ed intervention 1 goal intervention scheduled/document ed in this visit PT Impaired muscle performance and/or ROM Disciplines: PT 12/30/2022 Active 1 goal linked to scheduled/document ed intervention 1 goal intervention scheduled/document ed in this visit PT Impaired mobility Disciplines: PT 12/30/2022 Active 1 goal linked to scheduled/document ed intervention 1 goal intervention scheduled/document ed in this visit PT Impaired gait Disciplines: PT 12/30/2022 Active 1 goal linked to scheduled/document ed intervention 1 goal intervention scheduled/document ed in this visit PT Orthopedic Condition Disciplines: PT 12/30/2022 Active 1 goal linked to scheduled/document ed intervention 2 goal interventions scheduled/document ed in this visit PT Learning Assessment Disciplines: PT 12/30/2022 Active 1 goal linked to scheduled/document ed intervention 1 goal intervention scheduled/document ed in this visit Goals Goal Associated Problem Outcome Goal Met? Visit Notes Patient/caregiver will demonstrate ability to obtain, store, identify and administer ordered medications, keep accurate medication list in home, and adhere to medication schedule Description: Patient/caregiver will demonstrate ability to obtain, store, identify and administer ordered medications, keep accurate medication list in home, and adhere to medication schedule by 02/27/23. Medication Education No Patient/caregiver will be able to identify and report symptoms of sepsis Description: Patient/caregiver will be able to identify signs/symptoms of sepsis infection and will verbalize actions to take if suspected by 02/27/23. Sepsis No Patient to maintain parameters within physician-specified ranges throughout certification period Physician Specific Parameters No Manage Risk for falls Description: Patient/caregiver will verbalize knowledge of individualized fall prevention strategies by 02/27/23. Risk for Falls No Manage Pain Description: Patient/caregiver will verbalize knowledge and understanding of appropriate techniques to control pain, including pain medication and non-pharmacological techniques. Patient will verbalize or demonstrate an acceptable level of pain as evidenced by a pain score of 0-2/10 and improvement in ability to perform activities of daily living to be achieved by 02/27/23. Pain No Manage discharge planning Description: Patient/caregiver will verbalize understanding of ongoing discharge plan provided related to disease management, arrangements for outpatient and/or community services, obtaining medications, supplies, and DME, as needed throughout certification period. Discharge No Improved Muscle Performance and/or ROM Description: LTG: Patient will demonstrate improved muscle performance to meet functional goals as evidenced by ability to tolerate 15 min of each exercise activity, to be achieved by 01/16/23. LTG: Patient and/or caregiver will verbalize/demonstrate independence with home exercise program, to improve functional mobility, to be achieved by 01/16/23. LTG: Patient will demonstrate improved left knee active range of motion to 0-90 degrees, to meet functional goals, to be achieved by 01/16/23. PT Impaired muscle performance and/or ROM No Improved Transfers Description: STG: Patient will demonstrate safe transfers to/from bed, chair and toilet independently, to be achieved by 01/09/23. LTG: Patient will demonstrate safe transfers to/from shower/tub and car with supervision, to be achieved by 01/16/23. PT Impaired mobility No Improved Gait Description: LTG: Patient will demonstrate improved gait ability as evidenced by ambulation 150 feet with front wheeled walker independently with AD, in order to navigate freely in home for ADL, to be achieved by 01/16/23. PT Impaired gait No Manage Orthopedic Condition Description: Improve patient and/or caregiver understanding of post surgical and/or non-surgical orthopedic intervention management as evidenced by patient and/or caregiver able to verbalize, demonstrate, and teach back instruction, to be achieved by 01/16/23. PT Orthopedic Condition No Demonstrate understanding of education Description: Patient and/or caregiver will understand educational instruction to be achieved by 01/16/23. PT Learning Assessment No Interventions Intervention Associated Problem/Goal Status Variance Visit Notes Medication Education Description: Evaluate/instruct patient/caregiver on obtaining, storing, identifying and administering ordered medications as well as keeping accurate medication list in the home and adhereing to medication schedule Problem:Medication Education Goal:Patient/caregive r will demonstrate ability to obtain, store, identify and administer ordered medications, keep accurate medication list in home, and adhere to medication schedule Completed Patient instructed on importance of keeping accurate medication list in home and adhering to medication schedule. Risk of Sepsis Description: Patient is at risk for sepsis. Monitor closely for s/s of sepsis. Problem:Sepsis Goal:Patient/caregive r will be able to identify and report symptoms of sepsis Completed SPO2 Description: Notify Dr. Monsivais if pulse ox is <92% at rest. Problem:Physician Specific Parameters Goal:Patient to maintain parameters within physician-specified ranges throughout certification period Completed Instruct on individual fall risk factors and strategies to prevent falls and injuries caused by falls. Problem:Risk for Falls Goal:Manage Risk for falls Completed PT: Patient instructed on Eliminating Environmental Hazards: Keep pathways clear Managing Impaired Functional Mobility: Use assistive device(s): front wheeled walker Instruct on pain and instruct on strategies to control pain Problem:Pain Goal:Manage Pain Completed patient instructed on techniques to control pain including Pharmacological measures and Non-Pharmacological measures; positioning/elevation and use of thermal modalities, apply ice to affected area for the following prescribed frequency: prn. Instruct on ongoing discharge plan Problem:Discharge Goal:Manage discharge planning Completed Ongoing Discharge plan: Discharge plan discussed with patient including frequency and duration for home PT and plan for transition to: outpatient therapy. Physical Therapy Therapeutic Exercises Problem:PT Impaired muscle performance and/or ROM Goal:Improved Muscle Performance and/or ROM Completed patient instructed on strengthening and range of motion exercises including ankle pumps, quad and glut sets, hip abd and add, saq and heel slides x's 10 each. supine ext hang x's5min, seated heel slides x's 10 with verbal, tactile and visual cues for correct form. patient instructed to perform home exercise program twice a day which included above exercises. Physical Therapy Transfer Training Problem:PT Impaired mobility Goal:Improved Transfers Completed Transfer training and instruction to patient on safe transfers to and from chair with supervision and verbal cues for correct technique Physical Therapy Gait Training Problem:PT Impaired gait Goal:Improved Gait Completed Gait training and instruction to patient on safe ambulation with front wheeled walker for 2x's 30 feet with supervision, with verbal cues for corrections of gait deviations including heel to toe. Instruct on orthopedic precautions and weight bearing restrictions Description: Orthopedic precautions including left total knee: no crossing legs, no knee flexed over pillow at rest, no kneeling, no squatting and no twisting. Weight bearing restrictions include: WBAT of involved extremity. Problem:PT Orthopedic Condition Goal:Manage Orthopedic Condition Completed patient instructed on orthopedic precautions. Instruct on self-management of post surgical and/or non-surgical orthopedic intervention Problem:PT Orthopedic Condition Goal:Manage Orthopedic Condition Completed patient instructed on signs and symptoms of infection, signs and symptoms of DVT/PE, instructed on when to call provider and instructed on when to call 911. Instruct and educate on knowledge deficits Problem:PT Learning Assessment Goal:Demonstrate understanding of education Completed patient verbalize and/or demonstrate understanding of physical therapy education including pain management and home exercise program. Education methods include: verbal cues. Further education required to improve knowledge and compliance with home exercise program. [facility] Visit Details Visit Type -PT REASSESSMENT Discipline -Physical Therapy Problems Problem Description Start Date Status Goals Interve ntions Sepsis Disciplines: Skilled Services 12/30/2022 Active 1 goal linked to scheduled/document ed intervention 1 goal intervention scheduled/document ed in this visit Physician Specific Parameters Disciplines: Skilled Services 12/30/2022 Active 1 goal linked to scheduled/document ed intervention 1 goal intervention scheduled/document ed in this visit Risk for Falls Disciplines: Skilled Services 12/30/2022 Active 1 goal linked to scheduled/document ed intervention 1 goal intervention scheduled/document ed in this visit Pain Disciplines: Skilled Services 12/30/2022 Active 1 goal linked to scheduled/document ed intervention 1 goal intervention scheduled/document ed in this visit PT Impaired muscle performance and/or ROM Disciplines: PT 12/30/2022 Active 1 goal linked to scheduled/document ed intervention 1 goal intervention scheduled/document ed in this visit PT Impaired mobility Disciplines: PT 12/30/2022 Active 2 goals linked to scheduled/document ed interventions 2 goal interventions scheduled/document ed in this visit PT Impaired gait Disciplines: PT 12/30/2022 Active 1 goal linked to scheduled/document ed intervention 1 goal intervention scheduled/document ed in this visit PT Impaired balance Disciplines: PT 12/30/2022 Active 1 goal linked to scheduled/document ed intervention 1 goal intervention scheduled/document ed in this visit PT Orthopedic Condition Disciplines: PT 12/30/2022 Active 1 goal linked to scheduled/document ed intervention 2 goal interventions scheduled/document ed in this visit PT Learning Assessment Disciplines: PT 12/30/2022 Active 1 goal linked to scheduled/document ed intervention 1 goal intervention scheduled/document ed in this visit Goals Goal Associated Problem Outcome Goal Met? Visit Notes Patient/caregiver will be able to identify and report symptoms of sepsis Description: Patient/caregiver will be able to identify signs/symptoms of sepsis infection and will verbalize actions to take if suspected by 02/27/23. Sepsis No Patient to maintain parameters within physician-specified ranges throughout certification period Physician Specific Parameters No Manage Risk for falls Description: Patient/caregiver will verbalize knowledge of individualized fall prevention strategies by 02/27/23. Risk for Falls No Manage Pain Description: Patient/caregiver will verbalize knowledge and understanding of appropriate techniques to control pain, including pain medication and non-pharmacological techniques. Patient will verbalize or demonstrate an acceptable level of pain as evidenced by a pain score of 0-2/10 and improvement in ability to perform activities of daily living to be achieved by 02/27/23. Pain No Improved Muscle Performance and/or ROM Description: LTG: Patient will demonstrate improved muscle performance to meet functional goals as evidenced by ability to tolerate 15 min of each exercise activity, to be achieved by 01/16/23. reassessment completed - new achieve by date of 02/06/23 LTG: Patient and/or caregiver will verbalize/demonstrate independence with home exercise program, to improve functional mobility, to be achieved by 01/16/23. LTG: Patient will demonstrate improved left knee active range of motion to 0-90 degrees, to meet functional goals, to be achieved by 01/16/23. new goal of 0-110- new achieve by date of 02/06/23 PT Impaired muscle performance and/or ROM No Improved Transfers Description: STG: Patient will demonstrate safe transfers to/from bed, chair and toilet independently, to be achieved by 01/09/23. reassessment completed - new achieve by date of 02/06/23 LTG: Patient will demonstrate safe transfers to/from shower/tub and car with supervision, to be achieved by 01/16/23. reassessment completed - new achieve by date of 02/06/23 PT Impaired mobility No Improved Bed Mobility Description: STG: Patient will demonstrate improved bed mobility, ability to position self and supine <> sit independently to be achieved by 01/09/23.- MET PT Impaired mobility No Improved Gait Description: LTG: Patient will demonstrate improved gait ability as evidenced by ambulation 150 feet with front wheeled walker independently with AD, in order to navigate freely in home for ADL, to be achieved by 01/16/23. reassessment completed - new achieve by date of 02/06/23 PT Impaired gait No Improved Balance Description: LTG: Patient will demonstrate improved standing balance to meet functional goals as evidenced by TUG score of 20 to be achieved by 01/26/23. reassessment completed - new achieve by date of 02/06/23 PT Impaired balance No Manage Orthopedic Condition Description: Improve patient and/or caregiver understanding of post surgical and/or non-surgical orthopedic intervention management as evidenced by patient and/or caregiver able to verbalize, demonstrate, and teach back instruction, to be achieved by 01/16/23. reassessment completed - new achieve by date of 02/06/23 PT Orthopedic Condition No Demonstrate understanding of education Description: Patient and/or caregiver will understand educational instruction to be achieved by 01/16/23. reassessment completed - new achieve by date of 02/06/23 PT Learning Assessment No Interventions Intervention Associated Problem/Goal Status Variance Visit Notes Risk of Sepsis Description: Patient is at risk for sepsis. Monitor closely for s/s of sepsis. Problem:Sepsis Goal:Patient/caregive r will be able to identify and report symptoms of sepsis Completed SPO2 Description: Notify Dr. Monsivais if pulse ox is <92% at rest. Problem:Physician Specific Parameters Goal:Patient to maintain parameters within physician-specified ranges throughout certification period Completed Instruct on individual fall risk factors and strategies to prevent falls and injuries caused by falls. Problem:Risk for Falls Goal:Manage Risk for falls Completed PT: Patient instructed on Eliminating Environmental Hazards: Keep pathways clear, Remove unsafe rugs and Move furniture from pathways Managing Impaired Functional Mobility: Use assistive device(s): front wheeled walker Managing Pain Instruct on pain and instruct on strategies to control pain Problem:Pain Goal:Manage Pain Completed patient instructed on techniques to control pain including Pharmacological measures and Non-Pharmacological measures; rest, positioning/elevation and use of thermal modalities, apply ice to affected area . Physical Therapy Therapeutic Exercises Problem:PT Impaired muscle performance and/or ROM Goal:Improved Muscle Performance and/or ROM Completed patient instructed on strengthening and range of motion exercises including ankle pumps, quad and glut sets, hip abd and add, saq and heel slides x's 10 each. supine ext hang x's5min, seated heel slides, Standing - heel raises,toe raises L knee flexionm L hip flexion x's 15 with verbal, tactile and visual cues for correct form. patient instructed to perform home exercise program twice a day which included above exercises. supien passive knee ext x 5 mni seated knee flexion to 90* Physical Therapy Transfer Training Problem:PT Impaired mobility Goal:Improved Transfers Completed Transfer training and instruction to patient on safe transfers to and from chair with supervision and stand by assist and verbal cues for technique . still occasionally needs someone to brace the walker when rising form armless chair . Physical Therapy Bed Mobility Training Problem:PT Impaired mobility Goal:Improved Bed Mobility Completed [place] bed mobility Physical Therapy Gait Training Problem:PT Impaired gait Goal:Improved Gait Completed Gait training and instruction to patient on safe ambulation with front wheeled walker for 30' x 6 feet with supervision, with verbal cues for corrections of gait deviations including consistnet heel toe pattern . Physical Therapy Balance Training Problem:PT Impaired balance Goal:Improved Balance Completed Developed, implemented, and instructed patient on standing balance exercises including standing ther ex . Instruct on management of edema Problem:PT Orthopedic Condition Goal:Manage Orthopedic Condition Completed Instruct patient on management of edema including elevation of LLE above the level of the heart and ice. Instruct on self-management of post surgical and/or non-surgical orthopedic intervention Problem:PT Orthopedic Condition Goal:Manage Orthopedic Condition Completed patient instructed on staying well hydrated, eating foods with high protein, signs and symptoms of infection and instructed on when to call provider. Instruct and educate on knowledge deficits Problem:PT Learning Assessment Goal:Demonstrate understanding of education Completed patient verbalize and/or demonstrate understanding of physical therapy education including weight bearing precautions, surgical precautions and pain management. Education methods include: verbal cues. Further education required to improve knowledge and compliance with functional activity and home exercise program. [facility]* Visit Details Visit Type -PROFESSOR OF FAMILY MEDICINE ROUTINE Discipline -Physical Therapy Problems Problem Description Start Date Status Goals Interve ntions Medication Education Disciplines: Skilled Services 12/30/2022 Active 1 goal linked to scheduled/document ed intervention 1 goal intervention scheduled/document ed in this visit Sepsis Disciplines: Skilled Services 12/30/2022 Active 1 goal linked to scheduled/document ed intervention 1 goal intervention scheduled/document ed in this visit Physician Specific Parameters Disciplines: Skilled Services 12/30/2022 Active 1 goal linked to scheduled/document ed intervention 1 goal intervention scheduled/document ed in this visit Risk for Falls Disciplines: Skilled Services 12/30/2022 Active 1 goal linked to scheduled/document ed intervention 1 goal intervention scheduled/document ed in this visit Pain Disciplines: Skilled Services 12/30/2022 Active 1 goal linked to scheduled/document ed intervention 1 goal intervention scheduled/document ed in this visit Discharge Disciplines: Skilled Services 12/30/2022 Active 1 goal linked to scheduled/document ed intervention 1 goal intervention scheduled/document ed in this visit PT Impaired muscle performance and/or ROM Disciplines: PT 12/30/2022 Active 1 goal linked to scheduled/document ed intervention 1 goal intervention scheduled/document ed in this visit PT Impaired gait Disciplines: PT 12/30/2022 Active 1 goal linked to scheduled/document ed intervention 1 goal intervention scheduled/document ed in this visit PT Orthopedic Condition Disciplines: PT 12/30/2022 Active 1 goal linked to scheduled/document ed intervention 2 goal interventions scheduled/document ed in this visit PT Learning Assessment Disciplines: PT 12/30/2022 Active 1 goal linked to scheduled/document ed intervention 1 goal intervention scheduled/document ed in this visit Goals Goal Associated Problem Outcome Goal Met? Visit Notes Patient/caregiver will demonstrate ability to obtain, store, identify and administer ordered medications, keep accurate medication list in home, and adhere to medication schedule Description: Patient/caregiver will demonstrate ability to obtain, store, identify and administer ordered medications, keep accurate medication list in home, and adhere to medication schedule by 02/27/23. Medication Education No Patient/caregiver will be able to identify and report symptoms of sepsis Description: Patient/caregiver will be able to identify signs/symptoms of sepsis infection and will verbalize actions to take if suspected by 02/27/23. Sepsis No Patient to maintain parameters within physician-specified ranges throughout certification period Physician Specific Parameters No Manage Risk for falls Description: Patient/caregiver will verbalize knowledge of individualized fall prevention strategies by 02/27/23. Risk for Falls No Manage Pain Description: Patient/caregiver will verbalize knowledge and understanding of appropriate techniques to control pain, including pain medication and non-pharmacological techniques. Patient will verbalize or demonstrate an acceptable level of pain as evidenced by a pain score of 0-2/10 and improvement in ability to perform activities of daily living to be achieved by 02/27/23. Pain No Manage discharge planning Description: Patient/caregiver will verbalize understanding of ongoing discharge plan provided related to disease management, arrangements for outpatient and/or community services, obtaining medications, supplies, and DME, as needed throughout certification period. Discharge No Improved Muscle Performance and/or ROM Description: LTG: Patient will demonstrate improved muscle performance to meet functional goals as evidenced by ability to tolerate 15 min of each exercise activity, to be achieved by 01/16/23. reassessment completed - new achieve by date of 02/06/23 LTG: Patient and/or caregiver will verbalize/demonstrate independence with home exercise program, to improve functional mobility, to be achieved by 01/16/23. LTG: Patient will demonstrate improved left knee active range of motion to 0-90 degrees, to meet functional goals, to be achieved by 01/16/23. new goal of 0-110- new achieve by date of 02/06/23 PT Impaired muscle performance and/or ROM No Improved Gait Description: LTG: Patient will demonstrate improved gait ability as evidenced by ambulation 150 feet with front wheeled walker independently with AD, in order to navigate freely in home for ADL, to be achieved by 01/16/23. reassessment completed - new achieve by date of 02/06/23 PT Impaired gait No Manage Orthopedic Condition Description: Improve patient and/or caregiver understanding of post surgical and/or non-surgical orthopedic intervention management as evidenced by patient and/or caregiver able to verbalize, demonstrate, and teach back instruction, to be achieved by 01/16/23. reassessment completed - new achieve by date of 02/06/23 PT Orthopedic Condition No Demonstrate understanding of education Description: Patient and/or caregiver will understand educational instruction to be achieved by 01/16/23. reassessment completed - new achieve by date of 02/06/23 PT Learning Assessment No Interventions Intervention Associated Problem/Goal Status Variance Visit Notes Medication Education Description: Evaluate/instruct patient/caregiver on obtaining, storing, identifying and administering ordered medications as well as keeping accurate medication list in the home and adhereing to medication schedule Problem:Medication Education Goal:Patient/caregive r will demonstrate ability to obtain, store, identify and administer ordered medications, keep accurate medication list in home, and adhere to medication schedule Completed Patient instructed on importance of keeping accurate medication list in home, adhering to medication schedule and how to order refills. Risk of Sepsis Description: Patient is at risk for sepsis. Monitor closely for s/s of sepsis. Problem:Sepsis Goal:Patient/caregive r will be able to identify and report symptoms of sepsis Completed SPO2 Description: Notify Dr. Monsivais if pulse ox is <92% at rest. Problem:Physician Specific Parameters Goal:Patient to maintain parameters within physician-specified ranges throughout certification period Completed Instruct on individual fall risk factors and strategies to prevent falls and injuries caused by falls. Problem:Risk for Falls Goal:Manage Risk for falls Completed PT: Patient instructed on Managing Impaired Functional Mobility: Use assistive device(s): front wheeled walker Managing Pain Instruct on pain and instruct on strategies to control pain Problem:Pain Goal:Manage Pain Completed patient instructed on techniques to control pain including Pharmacological measures and Non-Pharmacological measures; positioning/elevation and use of thermal modalities, apply ice to affected area for the following prescribed frequency: prn. Instruct on ongoing discharge plan Problem:Discharge Goal:Manage discharge planning Completed Ongoing Discharge plan: Discharge plan discussed with patient including frequency and duration for home PT and plan for transition to: live independently at home without ongoing services. Physical Therapy Therapeutic Exercises Problem:PT Impaired muscle performance and/or ROM Goal:Improved Muscle Performance and/or ROM Completed patient instructed on strengthening and range of motion exercises including standing heel raises, hamstring curls xs 10each. step flexion stretch x's 10 and juana;l slides x's 10 with verbal and visual cues for correct formand pace. patient instructed to perform home exercise program twice a day which included above exercises. Physical Therapy Gait Training Problem:PT Impaired gait Goal:Improved Gait Completed Gait training and instruction to patient on safe ambulation with front wheeled walker for x's 50 and 2x's 15 feet with supervision, with verbal cues for corrections of gait deviations including heel to toe pattern. Instruct on management of edema Problem:PT Orthopedic Condition Goal:Manage Orthopedic Condition Completed Instruct patient on management of edema including elevation of RLE above the level of the heart and ice. Instruct on self-management of post surgical and/or non-surgical orthopedic intervention Problem:PT Orthopedic Condition Goal:Manage Orthopedic Condition Completed patient instructed on signs and symptoms of infection, signs and symptoms of DVT/PE, instructed on when to call provider and instructed on when to call 911. Instruct and educate on knowledge deficits Problem:PT Learning Assessment Goal:Demonstrate understanding of education Completed patient verbalize and/or demonstrate understanding of physical therapy education including pain management and home exercise program. Education methods include: verbal cues and visual cues. Further education required to improve knowledge and compliance with home exercise program. documented in this encounter [facility] for referral (narrative)* Outpatient Procedure (Routine) - Pending Review Specialty Diagnoses / Procedures Referred By Contac t Referred To Contact [facility] Diagnoses Pre-operative examination Procedures ECHO ECHO TTHRC R-T 2D W/WOM-MODE COMPL SPEC&COLR D Kristine Ayon APRN.CNP [address] [place] [address] [facility] [address] [place] [address] Referral ID Status Reason Start Date Expiration Date Visits Requested Visits Authorized [id number] Pending Review Auto-Generat ed Referral 12/11/2022 12/11/2023 1 1 * Outpatient Procedure (Routine) - Closed Specialty Diagnoses / Procedures Referred By Contac t Referred To Contact [facility] Diagnoses Pre-operative examination Procedures ECG COMPLETE ECG ROUTINE ECG W/LEAST 12 LDS W/I&R Kristine Ayon APRN.TORO [address] [place] [address] [facility] [place] [address] [place] [address] Referral ID Status Reason Start Date Expiration Date V isits Requested Visits Authorized [id number] Closed Auto-Generate d Referral 12/11/2022 12/11/2023 1 1 [facility] Diagnostic Procedure Only (Routine) - Authorized Specialty Diagnoses / Procedures Referred By Contac t Referred To Contact XR IMAGING Diagnoses Chronic pain of left knee Procedures XR KNEE POST OP 3V AP/LAT/MERCHANT LEFT RADIOLOGIC EXAMINATION KNEE 3 VIEWS Dheeraj Lozano APRN.CNP [id number] [address] [address] Xr Imaging Referral ID Status Reason Start Date Expiration Date Visits Requested Visits Authorized [id number] Authorized Auto-Generat ed Referral 12/31/2022 01/29/2024 1 1 [facility] Summary Purpose Family History No Family History Records FoundNo Family History Records FoundNo Family History Records FoundNo Family History Records FoundNo Family History Records FoundNo Family History Records Found Advance Directives No Advanced Directives Records FoundLatest Code Status on File Code Status Date Activated Date Inactivated Comments Full Code 01/01/2023 7:41 AM Latest Code Status on File Code Status Date Activated Date Inactivated Comments Full Code 01/01/2023 7:41 AM Latest Code Status on File Code Status Date Activated Date Inactivated Comments Full Code 01/01/2023 7:41 AM 03/22/2023 6:00 AM Additional Source Comments INFORMATION SOURCE (unrecogn ized section and content) DATE CREATED AUTHOR AUTHOR'S ORGANIZ ATION 03/03/2018 [facility] DATE CREATED AUTHOR AUTHOR'S ORGANIZ ATION 03/08/2018 [facility] DATE CREATED AUTHOR AUTHOR'S ORGANIZ ATION 03/09/2018 [facility] DATE CREATED AUTHOR AUTHOR'S ORGANIZ ATION 03/24/2023 [facility] DATE CREATED AUTHOR AUTHOR'S ORGANIZ ATION 04/28/2023 [facility] Source Comments (unrecognize d section and content) In the event this informatio n is protected by the Federal Confidentiality of Alcohol and Drug Abuse Patient Records regulations: The Federal rules restrict any use of the information to criminally investigate or prosecute any alcohol or drug abuse patient.[facility] the event this information is protected by the Federal Confidentiality of Alcohol and Drug Abuse Patient Records regulations: The Federal rules restrict any use of the information to criminally investigate or prosecute any alcohol or drug abuse patient.[facility] the event this information is protected by the Federal Confidentiality of Alcohol and Drug Abuse Patient Records regulations: The Federal rules restrict any use of the information to criminally investigate or prosecute any alcohol or drug abuse patient.[facility] the event this information is protected by the Federal Confidentiality of Alcohol and Drug Abuse Patient Records regulations: The Federal rules restrict any use of the information to criminally investigate or prosecute any alcohol or drug abuse patient.[facility] the event this information is protected by the Federal Confidentiality of Alcohol and Drug Abuse Patient Records regulations: The Federal rules restrict any use of the information to criminally investigate or prosecute any alcohol or drug abuse patient.[facility] the event this information is protected by the Federal Confidentiality of Alcohol and Drug Abuse Patient Records regulations: The Federal rules restrict any use of the information to criminally investigate or prosecute any alcohol or drug abuse patient.[facility] the event this information is protected by the Federal Confidentiality of Alcohol and Drug Abuse Patient Records regulations: The Federal rules restrict any use of the information to criminally investigate or prosecute any alcohol or drug abuse patient.[facility] the event this information is protected by the Federal Confidentiality of Alcohol and Drug Abuse Patient Records regulations: The Federal rules restrict any use of the information to criminally investigate or prosecute any alcohol or drug abuse patient.[facility] the event this information is protected by the Federal Confidentiality of Alcohol and Drug Abuse Patient Records regulations: The Federal rules restrict any use of the information to criminally investigate or prosecute any alcohol or drug abuse patient.[facility] the event this information is protected by the Federal Confidentiality of Alcohol and Drug Abuse Patient Records regulations: The Federal rules restrict any use of the information to criminally investigate or prosecute any alcohol or drug abuse patient.[facility] the event this information is protected by the Federal Confidentiality of Alcohol and Drug Abuse Patient Records regulations: The Federal rules restrict any use of the information to criminally investigate or prosecute any alcohol or drug abuse patient.[facility] the event this information is protected by the Federal Confidentiality of Alcohol and Drug Abuse Patient Records regulations: The Federal rules restrict any use of the information to criminally investigate or prosecute any alcohol or drug abuse patient.[facility] the event this information is protected by the Federal Confidentiality of Alcohol and Drug Abuse Patient Records regulations: The Federal rules restrict any use of the information to criminally investigate or prosecute any alcohol or drug abuse patient.[facility] the event this information is protected by the Federal Confidentiality of Alcohol and Drug Abuse Patient Records regulations: The Federal rules restrict any use of the information to criminally investigate or prosecute any alcohol or drug abuse patient.[facility] the event this information is protected by the Federal Confidentiality of Alcohol and Drug Abuse Patient Records regulations: The Federal rules restrict any use of the information to criminally investigate or prosecute any alcohol or drug abuse patient.[facility] the event this information is protected by the Federal Confidentiality of Alcohol and Drug Abuse Patient Records regulations: The Federal rules restrict any use of the information to criminally investigate or prosecute any alcohol or drug abuse patient.[facility] the event this information is protected by the Federal Confidentiality of Alcohol and Drug Abuse Patient Records regulations: The Federal rules restrict any use of the information to criminally investigate or prosecute any alcohol or drug abuse patient.[facility] Reason for Visit (unrecogniz ed section and content) Reason Comments New Pain Reason Comments Consult Reason Comments Pre-Op Teaching Specialty Diagnoses / Procedures Referred By Vicente hayward Referred To Contact [facility] Home Care [address] [place] [id number] Referral ID Status Reason Start Date Expiration Date Visits Re quested Visits Authorized [id number] 1 1 Reason Comments Home Care Dressing removal Reason Comments Home Care Out patient PT Reason Comments Established Patient Follow Up Post Op Knee Replacement Care Teams (unrecognized sec tion and content) Monument Setter Helper Relationship Specialty Start Date End [place] David Santana MD [id number] [place] [address] PCP - General Internal Medicine 03/12/17 Monument Setter Helper Relationship Specialty Start Date End Date David Santana MD [id number] [place] [address] PCP - General Internal Medicine 03/12/17 Huy Li [facility] [address] [place] [address] Specialty Well Control Instructor Orthopedics 12/08/22 02/04/23 Monument Setter Helper Relationship Specialty Start Date End Date Geo Granado MD [address] [facility] [address] [place] [address] PCP - General Family Medicine 12/08/22 SisAnil swansonin, [facility] [address] [place] [address] Specialty Well Control Instructor Orthopedics 12/08/22 02/04/23 Monument Setter Helper Relationship Specialty Start Date End Date Geo Granado MD [address] [facility] [address] [place] [address] PCP - General Family Medicine 12/08/22 Sissen, Huy, [facility] [address] [place] [address] Specialty Well Control Instructor Orthopedics 12/08/22 02/04/23 Monument Setter Helper Relationship Specialty Start Date End Date Geo Granado MD [address] [facility] [address] [place] [address] PCP - General Family Medicine 12/08/22 SisAnil swansonin, [facility] [address] [place] [address] Specialty Well Control Instructor Orthopedics 12/08/22 02/04/23 Brennan Monsivais MD [address] [place], [place] [id number] Home Care Provider Orthopedics 12/29/22 Dheeraj Lozano APRN.SCRAP BALLER [address] [address] Referring Orthopedics 12/29/22 Kaelyn Blake, PT [address] [place], [place] [id number] Regulatory Affairs Specialist Post Acute Care 12/29/22 Monument Setter Helper Relationship Specialty Start Date End Date Geo Granado MD [address] [facility] [address] [place] [address] PCP - General Family Medicine 12/08/22 SisAnil swansonin, [facility] [address] [place] [address] Specialty Well Control Instructor Orthopedics 12/08/22 02/04/23 Brennan Monsivais MD [address] [place] [address] Home Care Provider Orthopedics 12/29/22 Dheeraj Lozano APRN.[address] [address] Referring Orthopedics 12/29/22 Kaelyn Blake, PT [address] [place] [address] Regulatory Affairs Specialist Post Acute Care 12/29/22 Monument Setter Helper Relationship Specialty Start Date End Date Geo Granado MD [address] [facility] [address] [place], [place] [address] PCP - General Family Medicine 12/08/22 Huy Li, [facility] [address] [place] [address] Specialty Well Control Instructor Orthopedics 12/08/22 02/04/23 Brennan Monsivais MD [address] [place] [address] Home Care Provider Orthopedics 12/29/22 Dheeraj Lozano, LINDA.SCRAP BALLER [address] [place] [address] Referring Orthopedics 12/29/22 Kaelyn Blake, PT [address] [place] [address] Regulatory Affairs Specialist Post Acute Care 12/29/22 Monument Setter Helper Relationship Specialty Start Date End Date Geo Granado MD [address] [facility] [address] [place] [address] PCP - General Family Medicine 12/08/22 Huy Li, [facility] [address] [place] [address] Specialty Well Control Instructor Orthopedics 12/08/22 02/04/23 Brennan Monsivais MD [address] [place], [place] [id number] Home Care Provider Orthopedics 12/29/22 Dheeraj Lozano APRN.SCRAP BALLER [address] [place] [address] Referring Orthopedics 12/29/22 Kaelyn Blake, PT [address] [place] [address] Regulatory Affairs Specialist Post Acute Care 12/29/22 Monument Setter Helper Relationship Specialty Start Date End Date Geo Granado MD [address] [facility] [address] [place] [address] PCP - General Family Medicine 12/08/22 Huy Li, [facility] [address] [place] [address] Specialty Well Control Instructor Orthopedics 12/08/22 02/04/23 Brennan Monsivais MD [address] [place], [place] [id number] Home Care Provider Orthopedics 12/29/22 Dheeraj Lozano, LINDA.SCRAP BALLER [address] [address] Referring Orthopedics 12/29/22 Kaelyn Blake, PT [address] [place] [address] Regulatory Affairs Specialist Post Acute Care 12/29/22 Monument Setter Helper Relationship Specialty Start Date End Date Geo Granado MD [address] [facility] [address] [place] [address] PCP - General Family Medicine 12/08/22 Huy Li, [facility] [address] [place] [address] Specialty Well Control Instructor Orthopedics 12/08/22 02/04/23 Brennan Monsivais MD [address] [place], [place] [id number] Home Care Provider Orthopedics 12/29/22 Dheeraj Lozano APRN.SCRAP BALLER [address] [address] Referring Orthopedics 12/29/22 Kaelyn Blake, PT [address] [place] [address] Regulatory Affairs Specialist Post Acute Care 12/29/22 Monument Setter Helper Relationship Specialty Start Date End Date Geo Granado MD [address] [facility] [address] [place] [address] PCP - General Family Medicine 12/08/22 Huy Li, [facility] [address] [place] [address] Specialty Well Control Instructor Orthopedics 12/08/22 02/04/23 Brennan Monsivais MD [address] [place] [address] Home Care Provider Orthopedics 12/29/22 Dheeraj Lozano, LINDA.SCRAP BALLER [address] [place] [address] Referring Orthopedics 12/29/22 Kaelyn Blake, PT [address] [place] [address] Regulatory Affairs Specialist Post Acute Care 12/29/22 Monument Setter Helper Relationship Specialty Start Date End Date Geo Granado MD [address] [facility] [address] [place] [address] PCP - General Family Medicine 12/08/22 Brennan Monsivais MD [address] [place] [address] Home Care Provider Orthopedics 12/29/22 Dheeraj Lozano, LINDA.SCRAP BALLER [address] [place] [address] Referring Orthopedics 12/29/22 Kaelyn Blake, PT [address] [place] [address] Regulatory Affairs Specialist Post Acute Care 12/29/22 Monument Setter Helper Relationship Specialty Start Date End Date Geo Granado MD [address] [facility] [address] [place] [address] PCP - General Family Medicine 12/08/22 Brennan Monsivais MD [address] [place], [place] [id number] Home Care Provider Orthopedics 12/29/22 Dheeraj Lozano APRN.SCRAP BALLER [address] [place] [address] Referring Orthopedics 12/29/22 Kaelyn Blake, PT [address] [place] [address] Regulatory Affairs Specialist Post Acute Care 12/29/22 Monument Setter Helper Relationship Specialty Start Date End Date Geo Granado MD [address] [place] [address] [address] [place] [address] PCP - General Family Medicine 12/08/22 Brennan Monsivais MD [address] [place] [address] Home Care Provider Orthopedics 12/29/22 Dheeraj Lozano APRN.SCRAP BALLER [address] [place] [address] Referring Orthopedics 12/29/22 Kaelyn Blake, PT [address] [place] [address] Regulatory Affairs Specialist Post Acute Care 12/29/22 FOR RECORDS PERTAINING TO PATIENTS WHO ARE OR HAVE BEEN ENROLLED IN A CHEMICAL DEPENDENCY/SUBSTANCEABUSE PROGRAM, SOME INFORMATION MAY BE OMITTED. This clinical summary was aggregated from multiple sources. Caution should be exercised in using it in the provision of clinical care. This summary normalizes information from multiple sources, and as a consequence, information in this document may materially change the coding, format and clinical context of patient data. In addition, data may be omitted in some cases. CLINICAL DECISIONS SHOULD BE BASED ON THE PRIMARY CLINICAL RECORDS. [facility] [employer] [facility]. provides no warranty or guarantee of the accuracy or completeness of information in this document.
[2023-09-09 16:21] LABS: HIV - WCH Non-Reactive (Nonreactive); Syphilis Antibodies Non-reactive
== END | disposition home or self-care (01) ==
PROVIDERS: PCP Family Medicine; Referring Provider Family Medicine; Visit Provider Family Medicine
DX: Z20.2 Contact with and (suspected) exposure to infections with a predominantly sexual mode of transmission (principal)
CPT/HCPCS: 36415; 86703; 86780

== ENCOUNTER → 2023-12-04 | Outpatient (CLI) | payer MEDICARE, SELFPAY ==
[2023-12-04 09:44] LABS: Hemoglobin 12.6 g/dL (12.0-15.0); Mean Corp Hgb Conc 32.3 g/dL (32-36); Mean Corpuscular Hgb 30.1 pg (27.0-32.0); Mean Corpuscular Volume 93.1 fL (81-99); Mean Platelet Vol. 10.7 fl (6.2-12.0); Platelet Count 236 K/mm3 (150-450); RBC Distribution Width CV 12.7 % (11.6-14.6); RBC Distribution Width SD 43.2 fl (35.1-43.9); Red Blood Count 4.19 M/mm3 (4.2-5.4); White Blood Count 5.9 K/mm3 (4.4-11.0)
[2023-12-04 10:04] LABS: Erythrocyte Sedimentation Rate 7 mm/hr (0-30)
[2023-12-04 10:09] LABS: CRP 3.65 mg/L (0.0-3.0)
== END | disposition home or self-care (01) ==
PROVIDERS: PCP Family Medicine; Referring Provider Ophthalmology; Visit Provider Ophthalmology
DX: H57.11 Ocular pain, right eye (principal); R51.9 Headache, unspecified
CPT/HCPCS: 36415; 85027; 85652; 86140

== ENCOUNTER → 2024-03-06 | Outpatient (CLI) | payer MEDICARE, SELFPAY ==
--- NOTE | 2024-03-06 09:50 | RAD_ITS ---
STUDY: X-RAY - RIGHT SHOULDER REASON FOR EXAM: Female, 83 years old. PAIN TECHNIQUE: 4 views of the right shoulder. COMPARISON: None. FINDINGS: There is mild glenohumeral arthrosis. There is mild acromioclavicular arthrosis. Normal acromion. There are small ossific densities at the superior margin of the glenohumeral joint, which could represent loose bodies or the sequelae of old avulsion injuries. Intact humeral head and visualized proximal humerus. The soft tissue structures are unremarkable. There is no demonstrated fracture. Normal visualized pulmonary apex. RAD/Shoulder min 2 Views IMPRESSION: Small ossific densities at the superior margin of the glenohumeral joint, which could represent loose bodies or the sequelae of old avulsion injuries. Mild glenohumeral arthrosis. Mild acromioclavicular arthrosis. Electronically Signed: Adelfo Calderon MD at 9:33 EDT ,
== END | disposition home or self-care (01) ==
PROVIDERS: PCP Family Medicine; Referring Provider Family Medicine; Visit Provider Family Medicine
DX: M25.511 Pain in right shoulder (principal)
CPT/HCPCS: 73030

== ENCOUNTER → 2024-10-16 | Outpatient (CLI) | payer MEDICARE, SELFPAY ==
[2024-10-16 12:53] LABS: Anion Gap 9 (5-15); BUN 18 mg/dL (7-18); BUN/Creat Ratio 18.2 RATIO (10-20); Calcium,Total 9.4 mg/dL (8.5-10.1); Chloride 106 mmol/L (98-107); Cholesterol 271 mg/dL (200); Creatinine, Serum 0.99 mg/dL (0.55-1.02); EST Glomerular Filtration Rate 57 mL/min (>60); Est Glom Filt Rate - Afr Amer 68 mL/min (>60); Glucose 116 mg/dL (74-106); High Density Lipoprotein 58 mg/dL; Potassium 3.8 mmol/L (3.5-5.1); Sodium Level 139 mmol/L (136-145); Triglycerides 205 mg/dL; Very Low Density Lipoprotein 41 mg/dL (5-40)
== END | disposition home or self-care (01) ==
LOC: MFPLAB 09:12
PROVIDERS: PCP Family Medicine; Referring Provider Family Medicine; Visit Provider Family Medicine
DX: R25.2 Cramp and spasm (principal)
CPT/HCPCS: 36415; 80048; 80061

== ENCOUNTER → 2024-12-01 | Outpatient (CLI) | payer MEDICARE, SELFPAY ==
--- NOTE | 2024-12-01 11:35 | RAD_ITS ---
PROCEDURE: RIBS UNIL 2V NO CXR 12/01/2024 REASON FOR EXAM: RIB PAIN TECHNIQUE: Frontal and oblique views of the RIGHT ribs were obtained. COMPARISON: 05/20/2018; note that images only are available for review, the report is not available at the time of the dictation. FINDINGS: Demineralization without definite acute displaced RIGHT rib fracture. No definite RIGHT pneumothorax Lumbar spondylosis better depicted on separately dictated lumbar spinal radiographs. Advanced aortic atherosclerosis and tortuosity. Suspect RIGHT basilar airspace disease. RAD/Ribs Unil 2V No CXR IMPRESSION: 1. Demineralization without definite acute displaced RIGHT rib fracture identif ied. No definite RIGHT pneumothorax. 2. Suspected RIGHT basilar airspace disease, suboptimally evaluated. Correlate for pneumonia and recommend follow-up to radiographic resolution with PA and lateral chest radiographs, if not CT. Comp arison with any available outside imaging may also be helpful. 3. Additional description as above. Reading Location: [id number]
--- NOTE | 2024-12-01 11:35 | RAD_ITS ---
PROCEDURE: L/S SPINE MIN 4 VIEWS ([facility]), 12/01/2024 REASON FOR EXAM: BACK PAIN TECHNIQUE: AP, lateral, and bilateral oblique views of the lumbar spine were obtained. COMPARISON: None FINDINGS: Exam limited by soft tissue attenuation, demineralization, and scoliotic deformity, limiting the planes of imaging as well as fine bony detail. Fracture/dislocation: None definitely identified within limits. Vertebral body heights: Relatively preserved within limits. Alignment: Lumbar dextroscoliosis. Mild grade 1 retrolisthesis at L3-L4. Disc spaces: Variable disc height loss up to severe with osteophytes and endplate sclerosis. Facets: Suspect facet arthropathy greatest at L4-S1. Soft tissues: Atherosclerosis. Presumed pelvic phleboliths. Calculi project over the RIGHT upper quadrant may reflect gallstones or renal calculi or may be intraluminal within superimposed bowel. Advanced atherosclerosis with aortoiliac tortuosity. Foreign bodies: None visible. Bone mineralization: Demineralization. Other: Partially imaged RIGHT hip arthroplasty. RAD/L/S Spine Min 4 Views IMPRESSION: 1. Demineralization without visible acute displaced fracture within above limit ations. If there is persistent concern, recommend CT. 2. Advanced multilevel spondylosis and additional description as above. This c ould be further delineated by MRI as indicated. Reading Location: [id number]
== END | disposition home or self-care (01) ==
LOC: MTRAD 11:32
PROVIDERS: PCP Family Medicine; Referring Provider Family Medicine; Visit Provider Family Medicine
DX: R07.81 Pleurodynia (principal); M54.9 Dorsalgia, unspecified
CPT/HCPCS: 71100; 72110

== ENCOUNTER → 2025-02-01 | Outpatient (CLI) | payer MEDICARE, SELFPAY ==
[2025-02-01 18:17] LABS: Absolute Neutrophil Count 3.9 X10^3/uL (2.0-7.7); Basophil# 0.03 X10^3/uL; Basophil% 0.4 % (0-1); Eosinophil# 0.34 X10^3/uL; Hematocrit 39.3 % (37-47); Hemoglobin 12.8 g/dL (12.0-15.0); Lymphocyte % 27.9 % (19-41); Mean Corp Hgb Conc 32.6 g/dL (32-36); Mean Corpuscular Hgb 30.2 pg (27.0-32.0); Mean Corpuscular Volume 92.7 fL (81-99); Mean Platelet Vol. 10.6 fl (6.2-12.0); Monocyte% 8.8 % (0-10); NRBC Flagged by Analyzer 0 % (0-5); Neutrophil # 3.93 X10^3/uL (2.7-7.7); Neutrophil % 57.6 % (47-70); Platelet Count 254 K/mm3 (150-450); RBC Distribution Width CV 12.8 % (11.6-14.6); RBC Distribution Width SD 43.8 fl (35.1-43.9); Red Blood Count 4.24 M/mm3 (4.2-5.4); White Blood Count 6.8 K/mm3 (4.4-11.0)
== END | disposition home or self-care (01) ==
LOC: MFPLAB 16:50
PROVIDERS: PCP Family Medicine; Referring Provider Family Medicine; Visit Provider Family Medicine
DX: K92.1 Melena (principal)
CPT/HCPCS: 36415; 85025

== ENCOUNTER → 2025-02-22 | Outpatient (CLI) | payer MEDICARE, SELFPAY ==
[2025-02-22 12:45] LABS: Uric Acid 7.6 mg/dL (2.6-6.0)
--- OUTSIDE RECORDS SUMMARY | 2025-02-22 20:36 | XMS RPT_ITS | CCD ---
Author Organization [facility] Care Team Providers Care Lithograph Printer Name Role Phone David Santana Unavailable Unavailable DEBS, DAVID Unavailable Unavailable DEBS, DAVID Unavailable Unavailable LOUIE SALCEDOYEANTONIETA Unavailable Unavailable GERMAN SALCEDO Unavailable Unavailable David Santana MD Primary Care Provider David Santana MD Primary Care Provider Arlin Gallardo Unavailable Unavailable Geo Gonzalez MD Primary Care Provider Brennan Monsivais MD Unavailable Cordell SLITTER CREASER SLOTTER HELPER.SPECIAL PROJECTS MANAGER, Dheeraj Unavailable Hayden PT, Kaelyn Unavailable SORIN COOLEY Referring Unavailable DAVID SANTANA Primary Care Unavailable SORIN COOLEY Referring Unavailable DAVID SANTANA Primary Care Unavailable DHEERAJ LANDA Referring Unavailable GEO GONZALEZ Primary Care Unavailable SURACE, BRENNAN Admitting Unavailable SURACE, BRENNAN Attending Unavailable GEO GONZALEZ Primary Care Unavailable GONZÁLEZ YOUNGER Consulting Unavailable SURACE, BRENNAN Admitting Unavailable SURACE, BRENNAN Attending Unavailable GEO GONZALEZ Primary Care Unavailable Geo Gonzalez MD Primary Care Provider GEO GONZALEZ Primary Care Unavailable DHEERAJ LANDA Attending Unavailable DHEERAJ LANDA Attending Unavailable GEO GONZALEZ Primary Care Unavailable SURLAVELL, BRENNAN Referring Unavailable DHEERAJ LANDA Attending Unavailable GEO GONZALEZ Primary Care Unavailable DHEERAJ LANDA Attending Unavailable GEO GONZALEZ Primary Care Unavailable GEO GONZALEZ Primary Care Unavailable KRISTINE MASON Referring Unavailable GEO GONZALEZ Primary Care Unavailable KRISTINE MASON Referring Unavailable KRISTINE MASON Referring Unavailable GEO GONZALEZ Primary Care Unavailable GEO GONZALEZ Primary Care Unavailable BRENNAN MONSIVAIS Referring Unavailable DAVID SANTANA Primary Care Unavailable BRENNAN MONSIVAIS Attending Unavailable YOVANI, DAVID Song Primary Care Unavailable SORIN COOLEY Attending Unavailable CARLOS, GEO Rasmussen Primary Care Unavailable DHEERAJ LANDA Attending Unavailable Guillermo DUGAN, Arlin Unavailable Unavailable Geo Gonzalez MD Primary Care Provider Yodit DILLON, Brennan Unavailable Hayden PT, Kaelyn Unavailable David Santana MD Primary Care Provider Carlos DILLON, Dr. Guardado Primary Care Provider Carlos DILLON, Dr. Guardado Attending Provider Carlos DILLON, Dr. Guardado Referring Provider [phone] Geo Gonzalez Referring Unavailable Gonzalez, Geo Attending Unavailable Gonzalez, Geo Primary Care Unavailable Gonzalez, Geo Referring Unavailable Gonzalez, Geo Attending Unavailable Gonzalez, Geo Primary Care Unavailable Gonzalez, Geo Referring Unavailable Gonzalez, Geo Attending Unavailable Gonzalez, Geo Primary Care Unavailable Gonzalez, Geo Referring Unavailable Gonzalez, Geo Attending Unavailable Gonzalez, Geo Primary Care Unavailable Allergies Allergy Classification Reported Allergen(s) Allergy Type Date of Onset Reaction(s) Facility (20 sources) clarithromycin; Translations: [CLARITHROMYCIN] Drug Allergy 02-20-2013 Intolerance [facility] Repository (20 sources) codeine; Translations: [CODEINE] Drug Allergy 08-20-2009 [facility] Repository (20 sources) HYDROcodone; Translations: [HYDROCODONE] Drug Allergy 02-20-2013 [facility] Repository (20 sources) traMADol; Translations: [TRAMADOL HCL] Drug Allergy 02-20-2013 [facility] Repository Medications Current Medications Medication Drug Class(es) Dates Sig (Normalized) Sig (Original) acetaminophen 500 mg oral tablet (13 sources) Start: 12-29-2022 take 2 tablets by mouth every eight hours as needed acetaminophen (TYLENOL) 500 mg tablet Take 2 tablets by mouth every 8 hours as needed for pain. 90 tablet 12/29/2022 Active Comment on above: Take 2 tablets by [facility] every 8 hours as needed for pain. amLODIPine 5 mg oral tablet (14 sources) Dihydropyridine Calcium Channel Mychal Start: 11-30-2022 take 1 tablet by mouth once daily amLODIPine (NORVASC) 5 mg tablet Take 5 mg by mouth once daily. 11/30/2022 Active Comment on above: Take 5 mg by mouth o nce daily. atorvastatin 20 mg oral tablet (11 sources) HMG-CoA Reductase Inhibitor Start: 05-20-2018 take 1 tablet by mouth at bedtime Atorvastatin 20 MG tablet Active 20 mg PO AT BEDTIME May 20, 2018 12:00am Calcium Carbonate (19 sources) CALCIUM CARBONAT E (CALCIUM 300 ORAL) Take by mouth. Active CALCIUM CARBONAT E (CALCIUM 300 ORAL) [The details of the medication are not available because there are pending changes by a home health clinician.] 0 Active CALCIUM CARBONAT E (CALCIUM 300 ORAL) Take by mouth. 0 Active Comment on above: Take by mouth. [The details of the medication are not available because there are pending changes by a home health clinician.] cholecalciferol, vitamin D3, (VITAMIN D3 ORAL) (14 sources) Start: 12-30-2022 cholecalciferol, vitamin D3, (VITAMIN D3 ORAL) Take by mouth. not taking 12/30/2022 Active Start: 12-30-2022 cholecalcifero l, vitamin D3, (VITAMIN D3 ORAL) Take by mouth. not taking 0 12/30/2022 Active Start: 12-30-2022 cholecalcifero l, vitamin D3, (VITAMIN D3 ORAL) [The details of the medication are not available because there are pending changes by a home health clinician.] 0 12/30/2022 Active cholecalciferol, vitamin D3, (VITAMIN D3 ORAL) Take by mouth. 0 Active Comment on above: Take by mouth. [The details of the medication are not available because there are pending changes by a home health clinician.] Take by mouth. not t aking hydroCHLOROthiazide 25 mg / losartan potassium 100 mg oral tablet (11 sources) Thiazide Diuretic, Angiotensin 2 Receptor Mychal Start: 05-20-2018 Losartan-Hydrochloro thiazide 1 EACH tablet Active 1 NMA PO DAILY May 20, 2018 12:00am Start: 05-20-2018 Losartan-Carson chlorothiazide Active 1 EACH PO DAILY May 20, 2018 12:00am meloxicam 7.5 mg oral tablet (9 sources) Nonsteroidal Anti-inflammatory Drug Start: 03-18-2023 End: 04-08-2023 take 1 tablet by mouth once daily at mealtime meloxicam (MOBIC) 7.5 mg tablet Take 1 tablet by mouth once daily for 21 days. Take with food 21 tablet 0 03/18/2023 04/08/2023 Active Start: 12-29-2022 End: 01-13-2023 take 1 tablet by mouth once daily meloxicam (MOBIC) 7.5 mg tablet Take 1 tablet by mouth once daily for 14 days. 14 tablet 0 12/29/2022 01/13/2023 Active Comment on above: Take 1 tablet by sharyn th once daily for 14 days. Take 1 tablet by sharyn th once daily for 21 days. Take with food multivitamin ORAL tablet (19 sources) Start: 03-27-2011 multivitamin ORAL tablet [The details of the medication are not available because there are pending changes by a home health clinician.] 0 03/27/2011 Active Start: 03-27-2011 take 1 tablet by sharyn th once daily multivitamin ORAL tablet Take 1 tablet by mouth once daily. 0 03/27/2011 Active Comment on above: Take 1 tablet by sharyn th once daily. [The details of the medication are not available because there are pending changes by a home health clinician.] mupirocin 0.02 mg/mg topical ointment (1 source) RNA Synthetase Inhibitor Antibacterial Start: 12-11-2022 End: 12-28-2022 mupirocin (BACTROBAN) 2 % ointment Indications: Pre-operative examination Apply 0.5 inch with cotton swab (Q-tip) to each nostril in the morning and evening for 5 days prior to and including day of surgery. 22 g 0 12/11/2022 12/28/2022 Active Comment on above: Apply 0.5 inch with cotton swab (Q-tip) to each nostril in the morning and evening for 5 days prior to and including day of surgery. OMEGA-3 FATTY ACIDS (OMEGA 3 ORAL) (19 sources) OMEGA-3 FATTY AC IDS (OMEGA 3 ORAL) Take by mouth. Active OMEGA-3 FATTY AC IDS (OMEGA 3 ORAL) [The details of the medication are not available because there are pending changes by a home health clinician.] 0 Active OMEGA-3 FATTY AC IDS (OMEGA 3 ORAL) Take by mouth. 0 Active Comment on above: Take by mouth. [The details of the medication are not available because there are pending changes by a home health clinician.] VITAMIN E ORAL (19 sources) Start: 12-30-2022 VITAMIN E ORAL Take by mouth once daily. not taking 12/30/2022 Active Start: 12-30-2022 VITAMIN E ORAL Take by mouth once daily. not taking 0 12/30/2022 Active Start: 12-30-2022 VITAMIN E ORAL [The details of the medication are not available because there are pending changes by a home health clinician.] 0 12/30/2022 Active VITAMIN E ORAL T hansa by mouth once daily. 0 Active Comment on above: Take by mouth once d aily. [The details of the medication are not available because there are pending changes by a home health clinician.] Take by mouth once d aily. not taking Completed/Discontinued Medications Medication Drug Class(es) Dates Sig (Normalized) Sig (Original) ascorbic acid 500 mg oral tablet (15 sources) Vitamin C Start: 12-29-2022 End: 03-22-2023 take 1 tablet by mouth twice daily at mealtime ascorbic acid, vitamin C, (VITAMIN C) 500 mg tablet Take 1 tablet by mouth twice daily with meals for 27 doses. 27 tablet 12/29/2022 03/22/2023 Discontinued take 1 tablet by mouth once adriana y ascorbic acid, vitamin C, (VITAMIN C) 500 mg tablet Take 500 mg by mouth once daily. 0 Active Comment on above: Take 1 tablet by sharyn th twice daily with meals for 27 doses. Take 500 mg by mouth once daily. aspirin 81 mg delayed release oral tablet (16 sources) Platelet Aggregation Inhibitor, Nonsteroidal Anti-inflammatory Drug Start: 12-29-2022 End: 03-22-2023 take 1 tablet by mouth twice daily aspirin, enteric coated (ASPIRIN, ENTERIC COATED) 81 mg EC tablet Take 1 tablet by mouth twice daily for 28 days. 56 tablet 12/29/2022 03/22/2023 Discontinued take 1 tablet by mouth once adriana y aspirin, enteric coated (ASPIRIN, ENTERIC COATED) 81 mg EC tablet Take 81 mg by mouth once daily. 0 Active aspirin 81 mg ca p Take by mouth. 0 Active Comment on above: Take by mouth. Take 1 tablet by sharyn th twice daily for 28 days. Take 81 mg by mouth once daily. docusate sodium 100 mg oral capsule (10 sources) Start: 12-30-19 End: 01-30-20 take 1 capsule by mouth every twelve hours as needed docusate sodium (COLACE) 100 mg capsule Take 1 capsule by mouth twice daily as needed for constipation. 60 capsule 12/29/2022 01/29/2023 Comment on above: Take 1 capsule by [facility] twice daily as needed for constipation. oxyCODONE hydrochloride 5 mg oral tablet (12 sources) Opioid Agonist Start: 12-30-19 End: 01-21-20 take 1 tablet by mouth every six hours as needed oxyCODONE IR (ROXICODONE) 5 mg immediate release tablet Indications: S/P total knee arthroplasty, left Take 1-2 tablets by mouth every 6 hours as needed for pain. 50 tablet 0 01/20/2023 Active Comment on above: Take 1-2 tablets by mouth every 6 hours as needed for pain. pantoprazole 20 mg delayed release oral tablet (10 sources) Proton Pump Inhibitor Start: 12-30-19 End: 03-22-20 take 1 tablet by mouth once daily, then take 6 tablets by mouth in the morning pantoprazole DR (PROTONIX) 20 mg tablet Take 1 tablet by mouth DAILY (6 AM) for 14 days. 14 tablet 12/29/2022 03/22/2023 Discontinued Comment on above: Take 1 tablet by [facility] DAILY (6 AM) for 14 days. perflutren lipid microspheres 1.3 mL in NaCl (PF) 0.9% 10 mL injection (DEFINITY) (14 sources) Start: 12-12-19 End: 03-11-20 perflutren lipid microspheres 1.3 mL in NaCl (PF) 0.9% 10 mL injection (DEFINITY) polyethylene glycol 3350 26746 mg powder for oral solution (7 sources) Osmotic Laxative Start: 12-30-19 End: 01-15-20 polyethylene glycol 3350 17 gram/dose powder Take 1 capful (17 grams) by mouth once daily as needed for constipation for up to 10 days. Dissolve dose in 4 - 8 ounces of liquid and take as directed. 238 g 0 12/29/2022 01/14/2023 Comment on above: Take 1 capful (17 gr ams) by mouth once daily as needed for constipation for up to 10 days. Dissolve dose in 4 - 8 ounces of liquid and take as directed. 125 ml sodium chloride 9 mg/ml prefilled syringe (14 sources) Start: 12-12-19 23 End: 03-11-20 24 sodium chloride 0.9 % (flush) 10 mL (BD POSIFLUSH) Problems Active Problems Problem Classification Problem Date Documented Da te Episodic/Chronic Conditions associated with dizziness or vertigo (11 sources) Dizziness; Translations: [Dizziness and giddiness] 05-21-2018 Episodic Disorders of lipid metabolism (20 sources) Hypercholesterolemia; Translations: [Pure hypercholesterolemia, unspecified] Onset: 1 04-22-2011 Chronic Esophageal disorders (17 sources) Gastroesophageal reflux disease; Translations: [Gastro-esophageal reflux disease without esophagitis] Onset: 3 Chronic Essential hypertension (17 sources) Benign essential hypertension; Translations: [Essential (primary) hypertension] Onset: 3 Chronic Gastrointestinal hemorrhage (1 source) Melena; Translations: [Melena] Onset: 5 Episodic Other connective tissue disease (16 sources) History of repair of hip joint; Translations: [Presence of right artificial hip joint] Onset: 3 Chronic Other connective tissue disease (3 sources) History of total knee arthroplasty; Translations: [Presence of left artificial knee joint] Chronic Other connective tissue disease (2 sources) Presence of right artificial knee joint; Translations: [History of right knee joint replacement] Onset: 3 Chronic Other connective tissue disease (1 source) Presence of left artificial knee joint; Translations: [S/P total knee arthroplasty, left] Onset: 3 Chronic Other connective tissue disease (1 source) Presence of right artificial hip joint; Translations: [History of right hip replacement] Onset: 3 Chronic Other lower respiratory disease (1 source) Pleurodynia; Translations: [Pleurodynia] Onset: 5 Episodic Other nervous system disorders (1 source) Other chronic pain; Translations: [Chronic pain of left knee] Onset: 3 Chronic Other non-traumatic joint disorders (3 sources) Arthrofibrosis of left knee; Translations: [Ankylosis, left knee] Chronic Other non-traumatic joint disorders (4 sources) Pain in left knee; Translations: [Pain in joint, lower leg] Onset: 2 Episodic Other nutritional; endocrine; and metabolic disorders (12 sources) Obesity; Translations: [Other obesity due to excess calories] Onset: 3 Chronic Other nutritional; endocrine; and metabolic disorders (4 sources) Obesity caused by energy imbalance; Translations: [Other obesity due to excess calories] Onset: 3 12-11-2022 Chronic Other nutritional; endocrine; and metabolic disorders (1 source) Other obesity due to excess calories; Translations: [Class 1 obesity due to excess calories with serious comorbidity and body mass index (BMI) of 30.0 to 30.9 in adult] Onset: 3 Chronic Other nutritional; endocrine; and metabolic disorders (1 source) Body mass index (BMI) 30.0-30.9, adult; Translations: [Class 1 obesity due to excess calories with serious comorbidity and body mass index (BMI) of 30.0 to 30.9 in adult] Onset: 3 Chronic Unclassified (1 source) Unknown / UNK(Unknown) Onset: 7 Viral infection (9 sources) Disease caused by 2019-nCoV; Translations: [COVID-19] 03-03-2022 Episodic Past or Other Problems Problem Classification Problem Date Documented Da te Episodic/Chronic Heart valve disorders (17 sources) Heart murmur; Translations: [Cardiac murmur, unspecified] Onset: 12-11-2022 Episodic Osteoarthritis (5 sources) Arthritis of knee; Translations: [Unilateral primary osteoarthritis, unspecified knee] Onset: 10-14-2011 Resolved: 03-23-2012 Chronic Other bone disease and musculoskeletal deformities (19 sources) Osteopenia; Translations: [Other specified disorders of bone density and structure, unspecified site] Onset: 05-12-2011 05-12-2011 Episodic Other connective tissue disease (5 sources) Muscle weakness; Translations: [Muscle weakness (generalized)] Onset: 01-22-2012 Resolved: 12-11-2022 01-22-2012 Episodic Other connective tissue disease (1 source) Cramp and spasm; Translations: [Cramp and spasm] Onset: 10-31-2024 Episodic Other non-traumatic joint disorders (2 sources) Disorder of glenohumeral joint; Translations: [Other specific arthropathies, not elsewhere classified, unspecified shoulder] Onset: 09-27-2013 Resolved: 03-12-2017 03-12-2017 Chronic Other non-traumatic joint disorders (2 sources) Hip pain; Translations: [Pain in unspecified hip] Onset: 10-14-2011 Resolved: 03-12-2017 03-12-2017 Episodic Other non-traumatic joint disorders (1 source) Pain in right shoulder; Translations: [Pain in right shoulder] Onset: 03-15-2024 Episodic Results Test Name Value Interpretation Reference Range Facility Absolute lymphocyte countOrd ered By: Geo Gonzalez on 02-01-2025 Lymphocytes Auto (Unsp spec) [#/Vol] 1.90 10*3/uL 0.83-4.51 [facility] Absolute neutrophil countOrd ered By: Geo Gonzalez on 02-01-2025 Neutrophils (Bld) [#/Vol] 3.9 10*3/uL 2.0-7.7 [facility] Automated lymphocyte count a s percentage of total leukocytesOrdered By: Geo Gonzalez on 02-01-2025 Lymphocytes/100 WBC Auto (Unsp spec) 27.9 % 19-41 [facility] Basophil percentageOrdered B y: Geo Gonzalez on 02-01-2025 Basophils/100 WBC (Bld) 0.4 % 0-1 [facility] CBC W/Diff, Automatedon 01-12 Absolute Lymph 1.90 X10 3/uL Normal 0.83-4.51 [facility] Comment on above: Performed By: #### L 100.0100 #### [facility] [address] [place], [address] Absolute Neut 3.9 X10 3/uL Normal 2.0-7.7 [facility] Comment on above: Performed By: #### L 100.0100 #### [facility] [address] [facility] [place], [address] Basophils/100 WBC (Bld) 0.4 % Normal 0-1 [facility] Comment on above: Performed By: #### L 100.0100 #### [facility] [address] [place], [address] Eosinophils/100 WBC (Bld) 5.0 % Normal 0-5 [facility] Comment on above: Performed By: #### L 100.0100 #### [facility] [address] [place], [address] Erythrocyte distribution width (RBC) [Ratio] 12.8 % Normal 11.6-14.6 [facility] Comment on above: Performed By: #### L 100.0100 #### [facility] [address] [place], [address] Hematocrit (Bld) [Volume fraction] 39.3 % Normal 37-47 [facility] Comment on above: Performed By: #### L 100.0100 #### [facility] [address] [place], [address] Hemoglobin (Bld) [Mass/Vol] 12.8 g/dL Normal 12.0-15.0 [facility] Comment on above: Performed By: #### L 100.0100 #### [facility] [address] [place], [address] IG% 0.300 Normal 0.0-0.9 [facility] Comment on above: Result Comment: IG% - Immature Granulocytes (promyelocytes, myelocytes and metamyelocytes) > 1% indicates that a LEFT SHIFT is Present. Performed By: #### L 100.0100 #### [facility] [address] [place], [address] Lymphocytes/100 WBC (Bld) 27.9 % Normal 19-41 [facility] Comment on above: Performed By: #### L 100.0100 #### [facility] [address] [place], [address] MCH (RBC) [Entitic mass] 30.2 pg Normal 27.0-32.0 [facility] Comment on above: Performed By: #### L 100.0100 #### [facility] [address] [place], [address] MCHC (RBC) [Mass/Vol] 32.6 g/dL Normal 32-36 [facility] Comment on above: Performed By: #### L 100.0100 #### [facility] [address] [place], [address] MCV (RBC) [Entitic vol] 92.7 fL Normal 81-99 [facility] Comment on above: Performed By: #### L 100.0100 #### [facility] [address] [place], [address] Monocytes/100 WBC (Bld) 8.8 % Normal 0-10 [facility] Comment on above: Performed By: #### L 100.0100 #### [facility] [place], [address] Neutrophils/100 WBC (Bld) 57.6 % Normal 47-70 [facility] Comment on above: Performed By: #### L 100.0100 #### [facility] [address] [place], [address] Nucleated RBC (Bld) [#/Vol] 0 10*3/uL Normal 0-5 [facility] Comment on above: Performed By: #### L 100.0100 #### [facility] [address] [place], [address] Platelet mean volume (Bld) [Entitic vol] 10.6 fL Normal 6.2-12.0 [facility] Comment on above: Performed By: #### L 100.0100 #### [facility] [address] [place], [address] Platelets (Bld) [#/Vol] 254 10*3/uL Normal 150-450 [facility] Comment on above: Performed By: #### L 100.0100 #### [facility] [address] [place], [address] RBC (Bld) [#/Vol] 4.24 10*6/uL Normal 4.2-5.4 [facility] Comment on above: Performed By: #### L 100.0100 #### [facility] [address] [place], [address] RDW SD 43.8 fl Normal 35.1-43.9 [facility] Comment on above: Performed By: #### L 100.0100 #### [facility] [address] [place], [address] WBC (Bld) [#/Vol] 6.8 10*3/uL Normal 4.4-11.0 [facility] Comment on above: Performed By: #### L 100.0100 #### [facility] [address] [place], [address] Eosinophil percentageOrdered By: Geo Gonzalez on 02-01-2025 Eosinophils/100 WBC (Bld) 5.0 % 0-5 [facility] Erythrocyte distribution wid th ratioOrdered By: Geo Gonzalez on 02-01-2025 Erythrocyte distribution width (RBC) [Ratio] 12.8 % 11.6-14.6 [facility] Erythrocyte distribution wid th standard deviationOrdered By: Geo Gonzalez on 02-01-2025 Erythrocyte distribution width (RBC) [Ratio] 43.8 fl 35.1-43.9 [facility] Hematocrit Auto (Bld) [Volum e fraction]Ordered By: Geo Gonzalez on 02-01-2025 Hematocrit (Bld) [Volume fraction] 39.3 % 37-47 [facility] Hemoglobin measurementOrdere d By: Geo Gonzalez on 02-01-2025 Hemoglobin (Bld) [Mass/Vol] 12.8 g/dL 12.0-15.0 [facility] Immature granulocytes/100 WB C Auto (Bld)Ordered By: Geo Gonzalez on 02-01-2025 Immature granulocytes/100 WBC (Bld) 0.300 % 0.0-0.9 [facility] Comment on above: IG% - Immature Granu locytes (promyelocytes, myelocytes and metamyelocytes) > 1% indicates that a LEFT SHIFT is Present. MCV (mean corpuscular volume ) determinationOrdered By: Geo Gonzalez on 02-01-2025 MCV (RBC) [Entitic vol] 92.7 fL 81-99 [facility] Mean corpuscular hemoglobin (MCH) determinationOrdered By: Geo Gonzalez on 02-01-2025 MCH (RBC) [Entitic mass] 30.2 pg 27.0-32.0 [facility] Mean corpuscular hemoglobin concentration (MCHC) determinationOrdered By: Geo Gonzalez on 02-01-2025 MCHC (RBC) [Mass/Vol] 32.6 g/dL 32-36 [facility] Mean platelet volume determi nationOrdered By: Geo Gonzalez on 02-01-2025 Platelet mean volume (Bld) [Entitic vol] 10.6 fL 6.2-12.0 [facility] Monocyte percentageOrdered B y: Geo Gonzalez on 02-01-2025 Monocytes/100 WBC (Bld) 8.8 % 0-10 [facility] Neutrophil percentageOrdered By: Geo Gonzalez on 02-01-2025 Neutrophils/100 WBC (Bld) 57.6 % 47-70 [facility] Nucleated red blood cell per centageOrdered By: Geo Gonzalez on 02-01-2025 Nucleated RBC/100 WBC (Bld) [Ratio] 0 % 0-5 [facility] Platelet countOrdered By: Alexandra Gonzalez on 02-01-2025 Platelets (Bld) [#/Vol] 254 10*3/uL 150-450 [facility] RBC Auto (Bld) [#/Vol]Ordere d By: Geo Gonzalez on 02-01-2025 RBC (Bld) [#/Vol] 4.24 10*6/uL 4.2-5.4 [facility] White blood cell (WBC) count Ordered By: Geo Gonzalez on 02-01-2025 WBC (Bld) [#/Vol] 6.8 10*3/uL 4.4-11.0 [facility] L/S Spine Min 4 Viewson 03-2 1-2025 L/S Spine Min 4 Views [facility] [address] [place], [place] [id number] L/S Spine Min 4 Views MR#: [id number] Acct: [id number] Name: RADHA GLOVER Rep #: [id number] : [id number] F [id number] From: Thierry Yañez MD PCP: Dr. Geo Gonzalez MD Status: REG CLI Study: L/S Spine Min 4 Views Date of Exam: 12/01/24 Exam# [id number] Ordering Dr: Geo Gonzalez MD PROCEDURE: L/S SPINE MIN 4 VIEWS (RADSP), 12/01/2024 REASON FOR EXAM: BACK PAIN TECHNIQUE: AP, lateral, and bilateral oblique views of the lumbar spine were obtained. COMPARISON: None FINDINGS: Exam limited by soft tissue attenuation, demineralization, and scoliotic deformity, limiting the planes of imaging as well as fine bony detail. Fracture/dislocation: None definitely identified within limits. Vertebral body heights: Relatively preserved within limits. Alignment: Lumbar dextroscoliosis. Mild grade 1 retrolisthesis at L3-L4. Disc spaces: Variable disc height loss up to severe with osteophytes and endplate sclerosis. Facets: Suspect facet arthropathy greatest at L4-S1. Soft tissues: Atherosclerosis. Presumed pelvic phleboliths. Calculi project over the RIGHT upper quadrant may reflect gallstones or renal calculi or may be intraluminal within superimposed bowel. Advanced atherosclerosis with aortoiliac tortuosity. Foreign bodies: None visible. Bone mineralization: Demineralization. Other: Partially imaged RIGHT hip arthroplasty. RAD/L/S Spine Min 4 Views IMPRESSION: 1. Demineralization without visible acute displaced fracture within above limitations. If there is persistent concern, recommend CT. 2. Advanced multilevel spondylosis and additional description as above. This could be further delineated by MRI as indicated. Reading Location: [facility] CC: Dr. Geo Gonzalez MD Flower Cheniller: Signed Normal [facility] Ribs Unil 2V No CXRon 2024 Ribs Unil 2V No CXR [facility] Imaging Services [address] [place], [place] [address] Ribs Unil 2V No CXR MR#: [id number] Acct: [id number] Name: RADHA GLOVER Rep #: [id number] : 1940 F 84 From: Thierry Yañez MD PCP: Dr. Geo Gonzalez MD Status: REG CLI Study: Ribs Unil 2V No CXR Date of Exam: 12/01/24 Exam# [id number] Ordering Dr: Geo Gonzalez MD PROCEDURE: RIBS UNIL 2V NO CXR 12/01/2024 REASON FOR EXAM: RIB PAIN TECHNIQUE: Frontal and oblique views of the RIGHT ribs were obtained. COMPARISON: 05/20/2018; note that images only are available for review, the report is not available at the time of the dictation. FINDINGS: Demineralization without definite acute displaced RIGHT rib fracture. No definite RIGHT pneumothorax Lumbar spondylosis better depicted on separately dictated lumbar spinal radiographs. Advanced aortic atherosclerosis and tortuosity. Suspect RIGHT basilar airspace disease. RAD/Ribs Unil 2V No CXR IMPRESSION: 1. Demineralization without definite acute displaced RIGHT rib fracture identified. No definite RIGHT pneumothorax. 2. Suspected RIGHT basilar airspace disease, suboptimally evaluated. Correlate for pneumonia and recommend follow-up to radiographic resolution with PA and lateral chest radiographs, if not CT. Comparison with any available outside imaging may also be helpful. 3. Additional description as above. Reading Location: [facility] CC: Dr. Geo Gonzalez MD Flower Cheniller: Signed Normal [facility] Basic Metabolic Profile (BMP )on 10-16-2024 BUN/CRE 18.2 RATIO Normal 10-20 [facility] Comment on above: Performed By: #### L 500.2500, L500.4100 #### [facility] [address] [place], [address] CA,Total 9.4 mg/dL Normal 8.5-10.1 [facility] Comment on above: Performed By: #### L 500.2500, L500.4100 #### [facility] [address] [place], [address] Chloride [Moles/Vol] 106 mmol/L Normal 98-107 [facility] Comment on above: Performed By: #### L 500.2500, L500.4100 #### [facility] [address] [place], [address] CO2 [Moles/Vol] 24.0 mmol/L Normal 21.0-32.0 [facility] Comment on above: Performed By: #### L 500.2500, L500.4100 #### [facility] [address] [place], [address] Creatinine [Mass/Vol] 0.99 mg/dL Normal 0.55-1.02 [facility] Comment on above: Result Comment: The validity of the calculated GFR GFRAA in patients over 70 years has not been determined. Clinical correlation is essential. Performed By: #### L 500.2500, L500.4100 #### [facility] [address] [place], [address] EST GFR - AA 68 mL/min Normal >60 [facility] Comment on above: Result Comment: Afri can [place] GFR Calc Performed By: #### L 500.2500, L500.4100 #### [facility] [address] [place], [address] GAP 9 Normal 5-15 [facility] Comment on above: Performed By: #### L 500.2500, L500.4100 #### [facility] [address] [place], [address] GFR/1.73 sq M.predicted among non-blacks MDRD (S/P/Bld) [Vol rate/Area] 57 mL/min/{1.73_m2} Low >60 [facility] Comment on above: Result Comment: Non- GFR Calc Performed By: #### L 500.2500, L500.4100 #### [facility] [address] [place], [address] Glucose [Mass/Vol] 116 mg/dL High 74-106 [facility] Comment on above: Result Comment: Fast ing Glucose result from 100 to 125 mg/dL suggests IMPAIRED HOMEOSTASIS per A.D.A. criteria. Performed By: #### L 500.2500, L500.4100 #### [facility] [address] [place], [address] Potassium [Moles/Vol] 3.8 mmol/L Normal 3.5-5.1 [facility] Comment on above: Performed By: #### L 500.2500, L500.4100 #### [facility] [address] [place], [address] Sodium [Moles/Vol] 139 mmol/L Normal 136-145 [facility] Comment on above: Performed By: #### L 500.2500, L500.4100 #### [facility] [address] [place], [address] Urea nitrogen [Mass/Vol] 18 mg/dL Normal 7-18 [facility] Comment on above: Performed By: #### L 500.2500, L500.4100 #### [facility] [address] [place], [address] Blood urea nitrogen (BUN)/cr eatinine ratioOrdered By: Geo Gonzalez on 10-16-2024 Urea nitrogen/Creatinine [Mass ratio] 18.2 mg/mg 10-20 [facility] Carbon dioxide measurementOr dered By: Geo Gonzalez on 10-16-2024 CO2 [Moles/Vol] 24.0 mmol/L 21.0-32.0 [facility] Chloride measurementOrdered By: Geo Gonzalez on 10-16-2024 Chloride [Moles/Vol] 106 mmol/L 98-107 [facility] Estimated glomerular filtrat ion rate (GFR) AmericanOrdered By: Geo Gonzalez on 10-16-2024 Estimated GFR (MDRD) Amer 68 mL/min >60 [facility] Comment on above: GFR Calc Glomerular filtration rate ( GFR) estimationOrdered By: Geo Gonzalez on 10-16-2024 Estimated GFR (MDRD) Non-Af Amer 57 mL/min Low >60 [facility] Comment on above: Non- GFR Calc GFR/1.73 sq M.predicted among non-blacks MDRD (S/P/Bld) [Vol rate/Area] 57 mL/min/{1.73_m2} Low >60 [facility] Comment on above: Non- GFR Calc Glucose measurementOrdered B y: Geo Gonzalez on 10-16-2024 Glucose [Mass/Vol] 116 mg/dL High 74-106 [facility] Comment on above: Fasting Glucose resu lt from 100 to 125 mg/dL suggests IMPAIRED HOMEOSTASIS per A.D.A. criteria. High density lipoprotein (HD L) measurementOrdered By: Geo Gonzalez on 10-16-2024 Cholesterol in HDL [Mass/Vol] 58 mg/dL >40 [facility] Comment on above: The drugs N-Acetylcy steine and Metamizole may falsely depress this assay. Reference Range HDL <40 mg/dL Low HDL Cholesterol HDL >or= 60 mg/dL High HDL Cholesterol Lipid Profileon 10-16-2024 Cholesterol [Mass/Vol] 271 mg/dL High 200 [facility] Comment on above: Result Comment: <200 mg/dL Desirable 200-240 mg/dL Borderline >240 mg/dL High Risk Performed By: #### L 500.2500, L500.4100 #### [facility] [address] [place], [address] Cholesterol in HDL [Mass/Vol] 58 mg/dL Normal [facility] Comment on above: Result Comment: The drugs N-Acetylcysteine and Metamizole may falsely depress this assay. Reference Range HDL <40 mg/dL Low HDL Cholesterol HDL >or= 60 mg/dL High HDL Cholesterol Performed By: #### L 500.2500, L500.4100 #### [facility] [address] [place], [address] Cholesterol in LDL [Mass/Vol] 172 mg/dL High 0-130 [facility] Comment on above: Performed By: #### L 500.2500, L500.4100 #### [facility] [address] [place], [address] Cholesterol in VLDL [Mass/Vol] 41 mg/dL High 5-40 [facility] Comment on above: Performed By: #### L 500.2500, L500.4100 #### [facility] [address] [place], [address] Triglyceride [Mass/Vol] 205 mg/dL High [facility] Comment on above: Result Comment: The drugs N-Acetylcysteine and Metamizole may falsely depress this assay. Serum Triglycerides Reference Interval Normal <150 mg/dL Borderline high 150 - 199 mg/dL High 200 - 499 mg/dL Very High > or = 500 mg/dL Performed By: #### L 500.2500, L500.4100 #### [facility] [address] [place], [address] Low density lipoprotein (LDL ) cholesterol measurementOrdered By: Geo Gonzalez on 10-16-2024 Cholesterol in LDL [Mass/Vol] 172 mg/dL High 0-130 [facility] Potassium measurementOrdered By: Geo Gonzalez on 10-16-2024 Potassium [Moles/Vol] 3.8 mmol/L 3.5-5.1 [facility] Serum anion gap measurementO rdered By: Geo Gonzalez on 10-16-2024 Anion gap [Moles/Vol] 9 mmol/L 5-15 [facility] Serum or plasma calcium pastor urement (mass/volume)Ordered By: Geo Gonzalez on 10-16-2024 Calcium [Mass/Vol] 9.4 mg/dL 8.5-10.1 [facility] Serum or plasma cholesterol measurement (mass/volume)Ordered By: Geo Gonzalez on 10-16-2024 Cholesterol [Mass/Vol] 271 mg/dL High <200 [facility] Comment on above: <200 mg/dL Desirable 200-240 mg/dL Borderline >240 mg/dL High Risk Serum or plasma creatinine m easurement (mass/volume)Ordered By: Geo Gonzalez on 10-16-2024 Creatinine [Mass/Vol] 0.99 mg/dL 0.55-1.02 [facility] Comment on above: The validity of the calculated GFR & GFRAA in patients over 70 years has not been determined. Clinical correlation is essential. Serum or plasma urea nitroge n measurement (mass/volume)Ordered By: Geo Gonzalez on 10-16-2024 Urea nitrogen [Mass/Vol] 18 mg/dL 7-18 [facility] Sodium levelOrdered By: Geo Gonzalez on 10-16-2024 Sodium [Moles/Vol] 139 mmol/L 136-145 [facility] Triglycerides measurementOrd ered By: Geo Gonzalez on 10-16-2024 Triglyceride [Mass/Vol] 205 mg/dL High <199 [facility] Comment on above: The drugs N-Acetylcy steine and Metamizole may falsely depress this assay.Serum Triglycerides Reference Interval Normal <150 mg/dL Borderline high 150 - 199 mg/dL High 200 - 499 mg/dL Very High > or = 500 mg/dL Very low density lipoprotein (VLDL) cholesterol measurementOrdered By: Geo Gonzalez on 10-16-2024 Very low density lipoprotein (VLDL) cholesterol measurement 41 mg/dL High 5-40 [facility] VLDL Cholesterol 41 mg/dL High 5-40 [facility] Shoulder min 2 Viewson 03-06 Shoulder min 2 Views [facility] Imaging Services [address] [place] [address] [id number] Shoulder min 2 Views MR#: [id number] Acct: [id number] Name: RADHA GLOVER Rep #: [id number] : 1940 F 83 From: Adelfo Calderon MD PCP: Dr. Geo Gonzalez MD Status: REG CLI Study: Shoulder min 2 Views Date of Exam: 03/06/24 Exam# [id number] Ordering Dr: Geo Gonzalez MD [id number] STUDY: X-RAY - RIGHT SHOULDER REASON FOR EXAM: Female, 83 years old. PAIN TECHNIQUE: 4 views of the right shoulder. COMPARISON: None. FINDINGS: There is mild glenohumeral arthrosis. There is mild acromioclavicular arthrosis. Normal acromion. There are small ossific densities at the superior margin of the glenohumeral joint, which could represent loose bodies or the sequelae of old avulsion injuries. Intact humeral head and visualized proximal humerus. The soft tissue structures are unremarkable. There is no demonstrated fracture. Normal visualized pulmonary apex. RAD/Shoulder min 2 Views IMPRESSION: Small ossific densities at the superior margin of the glenohumeral joint, which could represent loose bodies or the sequelae of old avulsion injuries. Mild glenohumeral arthrosis. Mild acromioclavicular arthrosis. Electronically Signed: Adelfo Calderon MD at 9:33 EDT Reading Location ID and State: [facility] / [place] , Service support , CC: Dr. Geo Gonzalez MD Flower Cheniller: Signed Normal [facility] Basophil percentageOrdered B y: Lauri Sheth on 12-04-2023 Hemoglobin (Bld) [Mass/Vol] 12.6 g/dL 12.0-15.0 [facility] WBC (Bld) [#/Vol] 5.9 10*3/uL 4.4-11.0 [facility] Determination of erythrocyte mean corpuscular volume (MCV)Ordered By: Lauri Sheth on 12-04-2023 MCV (RBC) [Entitic vol] 93.1 fL 81-99 [facility] Erythrocyte distribution wid th ratioOrdered By: Lauri Sheth on 12-04-2023 Erythrocyte distribution width (RBC) [Ratio] 12.7 % 11.6-14.6 [facility] Erythrocyte distribution wid th standard deviationOrdered By: Lauri Sheth on 12-04-2023 Erythrocyte distribution width (RBC) [Entitic vol] 43.2 fL 35.1-43.9 [facility] Erythrocyte sedimentation ra teOrdered By: Lauri Sheth on 12-04-2023 ESR (Bld) [Velocity] 7 mm/h 0-30 [facility] Hematocrit Auto (Bld) [Volum e fraction]Ordered By: Lauri Sheth on 12-04-2023 Hematocrit (Bld) [Volume fraction] 39.0 % 37-47 [facility] - Hematology and Cell countsOrdered By: Lauri Sheth on 12-04-2023 MCH (RBC) [Entitic mass] 30.1 pg 27.0-32.0 [facility] MCHC (RBC) [Mass/Vol] 32.3 g/dL 32-36 [facility] Platelet mean volume (Bld) [Entitic vol] 10.7 fL 6.2-12.0 [facility] Platelets (Bld) [#/Vol] 236 10*3/uL 150-450 [facility] No Panel InformationOrdered By: Lauri Sheth on 12-04-2023 C-Reactive Protein Extended Range 3.65 mg/L 0.0-3.0 [facility] Comment on above: C-Reactive Protein ( CRP) provides useful information for thediagnosis, therapy and monitoring of inflammatory processesand associated diseases. For the evaluation of Relative Riskfor Cardiovascular Disease, a High Sensitivity CRP (HSCRP)should be ordered. RBC Auto (Bld) [#/Vol]Ordere d By: Lauri Sheth on 12-04-2023 RBC (Bld) [#/Vol] 4.19 10*6/uL 4.2-5.4 [facility] HIV 1 and HIV-2 antibody ass ay with HIV-1 p24 antigen detectionOrdered By: Geo Gonzalez on 09-09-2023 HIV 1+2 Ab+HIV1 p24 Ag IA Ql Non-Reactive Nonreactive [facility] No Panel InformationOrdered By: Geo Gonzalez on 09-09-2023 Miscellaneous Test See comment [facility] Comment on above: TEST RESULTS LIMITSH SV-2 Ab, IgGHSV 2 IgG, Type Spec >23.60 High index 0.00-0.90 Negative <0.91 Equivocal 0.91 - 1.09 Positive >1.09 HSV-2 Antibody Interpretation: Current guidelines and recommendations do not recommend routine screening for HSV-2 in asymptomatic individuals, including those that are . A negative antibody result indicates no detectable antibodies to HSV-2 were found. If recent exposure is suspected, retest in 4 to 6 weeks. Equivocal samples should be retested in 4 to 6 weeks. A positive result indicates the presence of detectable IgG antibody to HSV-2. FALSE POSITIVE RESULTS MAY OCCUR. Repeat testing, or testing by a different method, may be indicated in some settings (e.g. patients with low likelihood of HSV infection). If clinically appropriate, retest 4 to 6 weeks later. HSV-2 IgG antibody testing results should be clinically correlated. TESTING PERFORMED AT [facility]. ORIGINAL REPORT ON FILE IN LAB CONTAINS ADDITIONAL TEST SITE INFORMATION. Serum Treponema species anti body detectionOrdered By: Geo Gonzalez on 09-09-2023 Treponema sp Ab Ql (S) Non-Reactive [facility] Absolute lymphocyte countOrd ered By: Devon Dueñas on 06-29-2023 Lymphocytes Auto (Unsp spec) [#/Vol] 1.05 10*3/uL 0.83-4.51 [facility] Basophil percentageOrdered B y: Devon Dueñas on 06-29-2023 Basophils/100 WBC (Bld) 0.1 % 0-1 [facility] Bilirubin [Mass/Vol] 0.30 mg/dL 0.20-1.00 [facility] Comment on above: For patients on eltr ombopag therapy, use of Dimension [place] TBIL is not recommended. Chloride [Moles/Vol] 107 mmol/L 98-107 [facility] Eosinophils/100 WBC (Bld) 0.3 % 0-5 [facility] Glucose [Mass/Vol] 139 mg/dL 74-106 [facility] Comment on above: Fasting Glucose resu lt greater than or equal to 126 mg/dL suggests DIABETES MELLITUS per A.D.A. criteria. Neutrophils (Bld) [#/Vol] 7.4 10*3/uL 2.0-7.7 [facility] Neutrophils/100 WBC (Bld) 83.6 % 47-70 [facility] Potassium [Moles/Vol] 3.8 mmol/L 3.5-5.1 [facility] Protein [Mass/Vol] 7.9 g/dL 6.4-8.2 [facility] Sodium [Moles/Vol] 139 mmol/L 136-145 [facility] WBC (Bld) [#/Vol] 8.9 10*3/uL 4.4-11.0 [facility] Blood erythrocytes count (nu mber/volume)Ordered By: Devon Dueñas on 06-29-2023 RBC (Bld) [#/Vol] 4.50 10*6/uL 4.2-5.4 [facility] Blood hemoglobin measurement (mass/volume)Ordered By: Devon Dueñas on 06-29-2023 Hemoglobin (Bld) [Mass/Vol] 13.2 g/dL 12.0-15.0 [facility] Blood lymphocytes/100 leukoc ytesOrdered By: Devon Dueñas on 06-29-2023 Lymphocytes/100 WBC (Bld) 11.8 % 19-41 [facility] Blood monocytes/100 leukocyt esOrdered By: Devon Dueñas on 06-29-2023 Monocytes/100 WBC (Bld) 3.8 % 0-10 [facility] Blood platelet mean volumeOr dered By: Devon Dueñas on 06-29-2023 Platelet mean volume (Bld) [Entitic vol] 10.8 fL 6.2-12.0 [facility] Determination of erythrocyte mean corpuscular volume (MCV)Ordered By: Devon Dueñas on 06-29-2023 MCV (RBC) [Entitic vol] 92.0 fL 81-99 [facility] Hematocrit Auto (Bld) [Volum e fraction]Ordered By: Devon Dueñsa on 06-29-2023 Hematocrit (Bld) [Volume fraction] 41.4 % 37-47 [facility] - Chemistry and C hemistry - challengeOrdered By: Devon Dueñas on 06-29-2023 ALP [Catalytic activity/Vol] 97 U/L 45-117 [facility] ALT [Catalytic activity/Vol] 24 U/L 13-56 [facility] CO2 [Moles/Vol] 26.0 mmol/L 21.0-32.0 [facility] Globulin (S) [Mass/Vol] 4.3 g/dL 2.2-4.2 [facility] Magnesium [Mass/Vol] 2.1 mg/dL 1.6-2.6 [facility] Urea nitrogen/Creatinine [Mass ratio] 14.8 mg/mg 10-20 [facility] - Hematology and Cell countsOrdered By: Devon Dueñas on 06-29-2023 Erythrocyte distribution width (RBC) [Entitic vol] 42.6 fL 35.1-43.9 [facility] Erythrocyte distribution width (RBC) [Ratio] 12.6 % 11.6-14.6 [facility] Immature granulocytes/100 WBC (Bld) 0.400 % 0.0-0.9 [facility] Comment on above: IG% - Immature Granu locytes (promyelocytes, myelocytes and metamyelocytes) > 1% indicates that a LEFT SHIFT is Present. MCH (RBC) [Entitic mass] 29.3 pg 27.0-32.0 [facility] Nucleated RBC/100 WBC (Bld) [Ratio] 0 % 0-5 [facility] MCHC Auto (RBC) [Mass/Vol]Or dered By: Devon Dueñas on 06-29-2023 MCHC (RBC) [Mass/Vol] 31.9 g/dL 32-36 [facility] No Panel InformationOrdered By: Devno Dueñas on 06-29-2023 Estimated GFR (MDRD) Amer 72 mL/min >60 [facility] Comment on above: GFR Calc Estimated GFR (MDRD) Non-Af Amer 60 mL/min >60 [facility] Comment on above: Non- GFR Calc Platelets bldOrdered By: Marely Dueñas on 06-29-2023 Platelets (Bld) [#/Vol] 254 10*3/uL 150-450 [facility] Serum or plasma C reactive p rotein measurement (mass/volume)Ordered By: Devon Dueñas on 06-29-2023 CRP [Mass/Vol] mg/L 0.0-3.0 [facility] Comment on above: C-Reactive Protein ( CRP) provides useful information for thediagnosis, therapy and monitoring of inflammatory processesand associated diseases. For the evaluation of Relative Riskfor Cardiovascular Disease, a High Sensitivity CRP (HSCRP)should be ordered. Serum or plasma albumin pastor urement (mass/volume)Ordered By: Devon Dueñas on 06-29-2023 Albumin [Mass/Vol] 3.6 g/dL 3.2-5.0 [facility] Serum or plasma albumin/glob ulin mass ratioOrdered By: Devon Dueñas on 06-29-2023 Albumin/Globulin [Mass ratio] 0.8 {ratio} 0.9-2.4 [facility] Serum or plasma calcium pastor urement (mass/volume)Ordered By: Devon Dueñas on 06-29-2023 Calcium [Mass/Vol] 9.7 mg/dL 8.5-10.1 [facility] Serum or plasma creatinine m easurement (mass/volume)Ordered By: Devon Dueñas on 06-29-2023 Creatinine [Mass/Vol] 0.95 mg/dL 0.55-1.02 [facility] Comment on above: The validity of the calculated GFR & GFRAA in patients over 70 years has not been determined. Clinical correlation is essential. Serum or plasma urea nitroge n measurement (mass/volume)Ordered By: Devon Dueñas on 06-29-2023 Urea nitrogen [Mass/Vol] 14 mg/dL 7-18 [facility] Thin prep Papanicolaou smear with manual screeningOrdered By: Devon Dueñas on 06-29-2023 Thin prep Papanicolaou smear with manual screening 24 U/L 15-37 [facility] Thin prep Papanicolaou smear with manual screening 6 5-15 [facility] CNOVon 04-27-2023 CNOV Office Visit (ORMDNA ) RADHA GLOVER ([id number]) 1940 F Date Time Provider Department 04/27/23 10:00 AM DHEERAJ LANDA During your visit today, we recorded the following information about you: Dheeraj Landa APRN.[facility] 04/27/2023 10:11 AM Signed This is a follow up appointment for Radha. 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 She reports she is doing well overall. She has no pain. She reports some swelling. Her last ROM was 120. She has no concerns today. Physical exam demonstrates well healed incision. Mild swelling. ROM is 0-120. Ligamentous exam is stable. Radha is 4.5 months out and doing well. She will follow up in with us at 1 year. All questions answered. Dheeraj Landa APRN.[facility] Orthopaedic Surgery Allergies As of Date: 04/27/2023 Noted Allergy Reaction CODEINE 08/20/2009 8 - GI Upset Comments: Severe vomiting TRAMADOL HCL 02/20/2013 5 - Intolerance Comments: Severe vomiting. CLARITHROMYCIN 02/20/2013 5 - Intolerance Comments: Severe headache HYDROCODONE 02/20/2013 8 - GI Upset Date Reviewed: 04/27/2023 Reviewed by: Destiny Peterson MA - Fully Assessed Reason for Visit: Established Patient [175] Follow Up [171] Post Op [174] Pain [78] Primary Visit Diagnosis:Status post left knee replacement [Z96.652] Prescriptions as of 04/27/2023 - aspirin, enteric coated (ASPIRIN, ENTERIC COATED) 81 mg EC tablet Take 81 mg by mouth once daily. - acetaminophen (TYLENOL) 500 mg tablet Take 2 tablets by mouth every 8 hours as needed for pain. - amLODIPine (NORVASC) 5 mg tablet Take 5 mg by mouth once daily. - cholecalciferol, vitamin D3, (VITAMIN D3 ORAL) Take by mouth. not taking - VITAMIN E ORAL Take by mouth once daily. not taking - CALCIUM CARBONATE (CALCIUM 300 ORAL) Take by mouth. - OMEGA-3 FATTY ACIDS (OMEGA 3 ORAL) Take by mouth. - multivitamin ORAL tablet Take 1 tablet by mouth once daily. Facility-Administered Medications as of 04/27/2023 - perflutren lipid microspheres 1.3 mL in NaCl (PF) 0.9% 10 mL injection (DEFINITY) - sodium chloride 0.9 % (flush) 10 mL (BD POSIFLUSH) Meds Comments as of 10/14/2012: glucosamine chondroitin/fish oil/garlic Occuvite daily for vision. HELD VITAMINS FOR A WEEK Problem List As Of Date 04/27/2023 Noted Resolved Hypercholesteremia [E78.00] 04/22/2011 Osteopenia [M85.80] 05/12/2011 Hip arthritis [M16.10] 10/14/2011 03/23/2012 Hip pain [M25.559] 10/14/2011 03/12/2017 Muscle weakness (generalized) [M62.81] 01/22/2012 12/11/2022 Rotator cuff arthropathy [M12.819] 09/27/2013 03/12/2017 Essential hypertension, benign [I10] 12/11/2022 GERD (gastroesophageal reflux disease) [K21.9] 12/11/2022 Murmur [R01.1] 12/11/2022 Class 1 obesity due to excess calories with ser*12/11/2022 History of right knee joint replacement [Z96.65*12/11/2022 History of right hip replacement [Z96.641] 12/11/2022 Disposition: Return for 1 year with post-op x-rays, earlier as needed. Follow-up and Disposition History for Encounter Date Provider Department Center 04/27/2023 [id number] LANDA [facility] Encounter Status:Closed by DHEERAJ LANDA on 04/27/23 [facility] [place] 04-05-2023 JOSE G Telephone (IVIS) RADHA GLOVER ([id number]) 1940 F Date Time Provider Department 04/05/23 BRENNAN MONSIVAIS During your visit today, we recorded the following information about you: Rodolfo Plaza RN 04/05/2023 9:15 AM Signed Pt calling [facility]. S/p L TKA 12/28/22 and FRANCISCO J 03/22/23 C/o R heal pain, says it's getting worse. Said she is doing the exercises from [place] but the pain gets worse after the exercises. Sometimes the pain gets better, usually it gets worse. Please advise. Dheeraj Landa APRN.SPECIAL PROJECTS MANAGER 04/06/2023 7:46 AM Signed Okay to stop the exercises I gave her. She should continue the knee flexion exercises and outpatient therapy. She should notify us if pain continues to worsen. Dheeraj Landa APRN.SPECIAL PROJECTS MANAGER April 06, 2023 7:46 AM Rodolfo Plaza RN 04/06/2023 9:18 AM Signed Called patient and relayed message below. She verbalized understanding. Allergies As of Date: 04/05/2023 Noted Allergy Reaction CODEINE 08/20/2009 8 - GI Upset Comments: Severe vomiting TRAMADOL HCL 02/20/2013 5 - Intolerance Comments: Severe vomiting. CLARITHROMYCIN 02/20/2013 5 - Intolerance Comments: Severe headache HYDROCODONE 02/20/2013 8 - GI Upset Date Reviewed: 03/30/2023 Reviewed by: Destiny Peterson MA - Fully Assessed Reason for Visit: Patient Question [2877] Patient Update [5714] Prescriptions as of 04/06/2023 - meloxicam (MOBIC) 7.5 mg tablet Take 1 tablet by mouth once daily for 21 days. Take with food - aspirin, enteric coated (ASPIRIN, ENTERIC COATED) 81 mg EC tablet Take 81 mg by mouth once daily. - acetaminophen (TYLENOL) 500 mg tablet Take 2 tablets by mouth every 8 hours as needed for pain. - amLODIPine (NORVASC) 5 mg tablet Take 5 mg by mouth once daily. - cholecalciferol, vitamin D3, (VITAMIN D3 ORAL) Take by mouth. not taking - VITAMIN E ORAL Take by mouth once daily. not taking - CALCIUM CARBONATE (CALCIUM 300 ORAL) Take by mouth. - OMEGA-3 FATTY ACIDS (OMEGA 3 ORAL) Take by mouth. - multivitamin ORAL tablet Take 1 tablet by mouth once daily. Facility-Administered Medications as of 04/06/2023 - perflutren lipid microspheres 1.3 mL in NaCl (PF) 0.9% 10 mL injection (DEFINITY) - sodium chloride 0.9 % (flush) 10 mL (BD POSIFLUSH) Meds Comments as of 10/14/2012: glucosamine chondroitin/fish oil/garlic Occuvite daily for vision. HELD VITAMINS FOR A WEEK Problem List As Of Date 04/05/2023 Noted Resolved Hypercholesteremia [E78.00] 04/22/2011 Osteopenia [M85.80] 05/12/2011 Hip arthritis [M16.10] 10/14/2011 03/23/2012 Hip pain [M25.559] 10/14/2011 03/12/2017 Muscle weakness (generalized) [M62.81] 01/22/2012 12/11/2022 Rotator cuff arthropathy [M12.819] 09/27/2013 03/12/2017 Essential hypertension, benign [I10] 12/11/2022 GERD (gastroesophageal reflux disease) [K21.9] 12/11/2022 Murmur [R01.1] 12/11/2022 Class 1 obesity due to excess calories with ser*12/11/2022 History of right knee joint replacement [Z96.65*12/11/2022 History of right hip replacement [Z96.641] 12/11/2022 Encounter Status:Closed by RODOLFO PLAZA on 04/06/23 [facility] CNOVon 03-30-2023 CNOV Office Visit (ORMDNA ) RADHA GLOVER ([id number]) 1940 F Date Time Provider Department 03/30/23 1:00 PM DHEERAJ LANDA During your visit today, we recorded the following information about you: Dheeraj Landa APRN.SPECIAL PROJECTS MANAGER 03/30/2023 1:15 PM Signed Mrs. Glover is following up today for [...] with repeat x-rays. All questions answered Dheeraj Landa APRN.[facility] Orthopaedic Surgery Allergies As of Date: 03/30/2023 Noted Allergy Reaction CODEINE 08/20/2009 8 - GI Upset Comments: Severe vomiting TRAMADOL HCL 02/20/2013 5 - Intolerance Comments: Severe vomiting. 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 Take with food - aspirin, enteric coated (ASPIRIN, ENTERIC COATED) 81 mg EC tablet Take 81 mg by mouth once daily. - acetaminophen (TYLENOL) 500 mg tablet Take 2 tablets by mouth every 8 hours as needed for pain. - amLODIPine (NORVASC) 5 mg tablet Take 5 mg by mouth once daily. - cholecalciferol, vitamin D3, (VITAMIN D3 ORAL) Take by mouth. not taking - VITAMIN E ORAL Take by mouth once daily. not taking - CALCIUM CARBONATE (CALCIUM 300 ORAL) Take by mouth. - OMEGA-3 FATTY ACIDS (OMEGA 3 ORAL) Take by mouth. - multivitamin ORAL tablet Take 1 tablet by mouth once daily. Facility-Administered Medications as of 03/30/2023 - perflutren lipid microspheres 1.3 mL in NaCl (PF) 0.9% 10 mL injection (DEFINITY) - sodium chloride 0.9 % (flush) 10 mL (BD POSIFLUSH) Meds Comments as of 10/14/2012: glucosamine chondroitin/fish oil/garlic Occuvite daily for vision. HELD VITAMINS FOR A WEEK Problem List As Of Date 03/30/2023 Noted Resolved Hypercholesteremia [E78.00] 04/22/2011 Osteopenia [M85.80] 05/12/2011 Hip arthritis [M16.10] 10/14/2011 03/23/2012 Hip pain [M25.559] 10/14/2011 03/12/2017 Muscle weakness (generalized) [M62.81] 01/22/2012 12/11/2022 Rotator cuff arthropathy [M12.819] 09/27/2013 03/12/2017 Essential hypertension, benign [I10] 12/11/2022 GERD (gastroesophageal reflux disease) [K21.9] 12/11/2022 Murmur [R01.1] 12/11/2022 Class 1 obesity due to excess calories with ser*12/11/2022 History of right knee joint replacement [Z96.65*12/11/2022 History of right hip replacement [Z96.641] 12/11/2022 Disposition: Return in about 3 weeks (around 04/20/2023). Follow-up and Disposition History for Encounter Date Provider Department [id number] Status:Closed by DHEERAJ LANDA on 03/30/23 [facility] ANES POSTPROC EVALon 023 ANES POSTPROC EVAL HNO ID: [id number] Author: Batsheva Proctor MD Service: Anesthesiology Author Type: Anesthesiologist Type: Anesthesia Postprocedure Evaluation Filed: 03/22/2023 9:32 AM Note Text: POST ANESTHESIA EVALUATION NOTE : 1940 Procedure Summary Date: 03/22/23 Room / Location: MO OR / MO OR Anesthesia Start: 721 Anesthesia Stop: 740 Procedure: MANIPULATION KNEE JOINT UNDER GENERAL ANES (Left: Knee) Diagnosis: Arthrofibrosis of total knee arthroplasty, initial encounter ([facility]) (Arthrofibrosis of total knee arthroplasty, initial encounter ([facility]) [T84.82XA]) Surgeons: Brennan Monsivais MD Responsible Provider: Batsheva Proctor MD Anesthesia Type: general ASA Status: 2 Anesthesia Type: general Airway Type: anesthesia mask Last Vitals Vitals Value Taken Time BP 197/85 03/22/23 0811 Temp 36.2 ?C (97.2 ?F) 03/22/23 0811 Pulse 65 03/22/23 0812 Resp 11 03/22/23 0812 SpO2 98 % 03/22/23811 Vitals shown include unvalidated device data. Post Anesthesia Patient Status Patient Evaluation: PACU. PACU/ICU Patient Condition: stable. Anticipated Disposition: phase 2 then home. Neurological Status: aware and responsive. Pulmonary Status: breathing comfortably on room air Airway Control: returned to baseline unsupported. Cardiovascular Status: stable. Pain Management: clinically adequate - multimodal analgesia pain management approach Postoperative Hydration: acceptable. Intraoperative Events: no significant anesthesia events Post Operative Nausea/Vomiting Status: no significant post operative nausea or vomiting Recommendation: continue current plan of care. Anesthesia Observations No Documentation SIGNATURE: Batsheva Proctor MD PATIENT NAME: Radha Glover DATE: March 22, 2023 TIME: 9:32 AM CSN: [id number] [facility] ANES PRE-OPon 03-22-2023 ANES PRE-OP HNO ID: [id number] Author: Batsheva Proctor MD Service: Anesthesiology Author Type: Anesthesiologist Type: Anesthesia Preprocedure Evaluation Filed: 03/22/2023 7:18 AM Note Text: ANESTHESIOLOGY DAY OF SURGERY NOTE : 1940 Procedure Information Date/Time: 03/22/23729 Procedure: MANIPULATION KNEE JOINT UNDER GENERAL ANES (Left: Knee) Location: MO OR / MO OR Surgeons: Brennan Monsivais MD Estimated body mass index is 30.11 kg/m? as calculated from the following: Height as of 12/11/22: 160 cm (5' 3). Weight as of 12/11/22: 77.1 kg (170 lb). Most recent hematocrit and potassium results: Hematocrit 32.6 12/29/2022 Potassium 4.3 12/29/2022 Relevant Problems CARDIO (+) Essential hypertension, benign (+) Murmur GI (+) GERD (gastroesophageal reflux disease) I - PHYSICAL EVALUATION AIRWAY Patient intubated: No. Tracheostomy tube not present Mallampati: II. TM distance: >3 FB. Neck ROM: full ROM without neurological symptoms. Mouth opening: adequate. Short neck: no. Thick neck: no DENTAL Dental findings: teeth intact. Additional exam findings: yes. CARDIOVASCULAR Rhythm: regular PULMONARY Breath sounds clear to auscultation. II - ANESTHESIA PLAN ASA Score: 2 Anesthetic Plan: general Airway type: anesthesia mask The patient is not a current smoker. NPO Status: adequate Anesthetic plan additional comments: She agrees to post op block if needed. Beta Mychal Monitoring Plan Monitoring plan: Standard ASA. Post Procedure Analgesic Plan Postoperative analgesic plan: parenteral or oral opioids and multimodal analgesia. Informed Consent Anesthetic risks, benefits, alternatives, personnel and consent discussed: yes. Patient / Responsible Republican agrees to proceed: yes Patient / Surrogate agrees to blood products: yes DNR status not reviewed with patient and/or family prior to surgery. Significant changes in the patient condition since the History and Physical, not otherwise documented in primary service progress note: no. Potential Anesthesia issues that may suggest increased risk of complications or contraindication to planned procedure: none. Vitals Value Taken Time BP 208/82 03/22/23621 Pulse Resp 16 03/22/23621 Temp 36.3 ?C (97.3 ?F) 03/22/23621 SpO2 98 % 03/22/23621 Facility-Administered Medications as of 03/22/2023 Medication Dose Route Frequency - acetaminophen 1,000 mg tab(s) (TYLENOL) 1,000 mg ORAL Pre-Op Once - promethazine 12.5 mg tab(s) (PHENERGAN) 12.5 mg ORAL Pre-Op Once - lactated ringers iv infusion 30 mL/hr INTRAVENOUS CONTINUOUS Outpatient Medications as of 03/22/2023 Medication Sig - meloxicam (MOBIC) 7.5 mg tablet Take 1 tablet by mouth once daily for 21 days. Take with food - aspirin, enteric coated (ASPIRIN, ENTERIC COATED) 81 mg EC tablet Take 81 mg by mouth once daily. - ascorbic acid, vitamin C, (VITAMIN C) 500 mg tablet Take 500 mg by mouth once daily. - cholecalciferol, vitamin D3, (VITAMIN D3 ORAL) Take by mouth. not taking - VITAMIN E ORAL Take by mouth once daily. not taking - CALCIUM CARBONATE (CALCIUM 300 ORAL) Take by mouth. - OMEGA-3 FATTY ACIDS (OMEGA 3 ORAL) Take by mouth. - multivitamin ORAL tablet Take 1 tablet by mouth once daily. - oxyCODONE IR (ROXICODONE) 5 mg immediate release tablet Take 1-2 tablets by mouth every 6 hours as needed for pain. - acetaminophen (TYLENOL) 500 mg tablet Take 2 tablets by mouth every 8 hours as needed for pain. - ascorbic acid, vitamin C, (VITAMIN C) 500 mg tablet Take 1 tablet by mouth twice daily with meals for 27 doses. - amLODIPine (NORVASC) 5 mg tablet Take 5 mg by mouth once daily. I have interviewed and examined the patient. I have reviewed the medical record and/or the pre-anesthesia evaluation, pertinent labs, and test results. This contains updated information obtained within 48 hours of Surgery/Procedure. SIGNATURE: Batsheva Proctor MD PATIENT NAME: Radha Glover DATE: March 22, 2023 TIME: 6:53 AM CSN: [id number] [facility] BRIEF OP NOTon 03-22-2023 BRIEF OP NOT HNO ID: [id number] Author: Brennan Monsivais MD Service: Orthopaedic Surgery Author Type: Physician Type: Brief Op Note Filed: 03/22/2023 7:48 AM Note Text: BRIEF OPERATIVE / PROCEDURE NOTE LOG ID: [id number] SURGERY/PROCEDURE DATE: 03/22/2023 INCISION/PROCEDURE START TIME: 7:30 AM INCISION CLOSE/PROCEDURE END TIME: 7:33 AM SURGEON(S)/PROCEDURALIST(S) AND RESIDENTIAL TREATMENT COUNSELOR(S): Surgeon(s) and Role: * Brennan Monsivais MD - Primary * Compa Cortez DO - Resident - Assisting Nurse Practitioner: Dheeraj Landa APRN.SPECIAL PROJECTS MANAGER Physician Nitrocellulose Maker: Monique Cesar PA-C SURGERY/PROCEDURE(S): FRANCISCO J L knee ANESTHESIA: General FINDINGS: arthrofibrosis ESTIMATED BLOOD LOSS: 0 mls SPECIMENS: None COMPLICATIONS: None POST-OP/POST-PROCEDURE DIAGNOSIS: Same as Preop SIGNATURE: Brennan Monsivais MD PATIENT NAME: Radha Glover DATE: March 22, 2023 TIME: 7:48 AM [facility] HISTORY PHYSICALon HISTORY PHYSICAL HNO ID: [id number] Author: Brennan Monsivais MD Service: Orthopaedic Surgery Author Type: Physician Type: HANDP Filed: 03/22/2023 6:54 AM Note Text: Updated HANDP Radha Killian 82 year old. March 22, 2023 6:53 AM Radha is an 82-year-old woman status post left total knee replacement by me. She has developed arthrofibrosis after some issues with getting into therapy early on. Her extension is full, but her flexion is limited to about 95 degrees. She was previously indicated for manipulation under anesthesia. Subjective: No pain, just stiffness Objective: Regular rate and rhythm, palpable peripheral pulses, unlabored breathing and clear to auscultation Well-healed incision of the knee Stable ligamentous exam 0 to 95 degrees Nontender Assessment and plan: Risks and benefits of manipulation under anesthesia highlighted along length. No otherwise interval changes since her recent knee replacement. Plan to proceed with manipulation under anesthesia with discharge home today. All questions answered. We will initiate therapy immediately afterwards. Brennan Monsivais MD Orthopaedic Surgery [facility] OPERATIVE NOon 03-22-2023 OPERATIVE NO HNO ID: [id number] Author: Brennan Monsivais MD Service: Orthopaedic Surgery Author Type: Physician Type: Operative Report Filed: 03/23/2023 6:06 PM Note Text: Operative Report PATIENT NAME: Radha Glover CSN: [id number] LOG ID: [id number] Surgery Date: 03/22/2023 Surgeon(s) and Nitrocellulose Maker(s): Dheeraj Landa CREPE BOX TENDER - [place] Surgeon(s) and Role: * Brennan Monsivais MD - Primary * Compa Cortez DO - Resident - Assisting 22 modifier--none BMI: Estimated body mass index is 30.11 kg/m? as calculated from the following: Height as of 12/11/22: 160 cm (5' 3). Weight as of 12/11/22: 77.1 kg (170 lb). Procedure(s): Procedure(s) (LRB): MANIPULATION KNEE JOINT UNDER GENERAL ANES (Left) Anesthesia: General Procedure Start: 7:30 AM Procedure Stop: 7:33 AM Attestation: I was present for all of the critical portions of the operation and performed all critical portions. Preop Diagnosis: Pre-Op Diagnosis Codes: * Arthrofibrosis of total knee arthroplasty, initial encounter ([facility]) [T84.82XA] Postop Diagnosis: Same as Pre-Op Diagnosis Codes: * Arthrofibrosis of total knee arthroplasty, initial encounter ([facility]) [T84.82XA] Implants: * No implants in log * Problem List: ACTIVE PROBLEM LIST Hypercholesteremia Osteopenia Essential Hypertension, Benign Gerd (Gastroesophageal Reflux Disease) Murmur Class 1 Obesity Due to Excess Calories With Serious Comorbidity and Body Mass Index (Bmi) of 30.0 to 30.9 in Adult History of Right Knee Joint Replacement History of Right Hip Replacement OPERATIVE INDICATIONS: Radha Glover Is 82 year oldwho underwent a L total knee arthroplasty approximately 10weeks ago. Postoperatively, physical therapy was engaged and range of motion was work done significantly. She stalled around 95 of flexion. Risks and benefits were discussed, and she wished to proceed with a manipulation under anesthesia OPERATIVE PROCEDURE: Patient was brought to the operating room. General anesthesia was performed. The patient was supine on the table with all bony prominences well-padded. A formal timeout was performed. Preoperative range of motion was assessed at this point. With no pressure, range of motion was 5 -95. With gentle applied pressure range of motion was 5-105. We then began the manipulation. The knee was held in flexion. Pressure was placed against the proximal tibia. A hand was placed over the quadricep tendon. Palpable and audible lysis of significant adhesion tissue was achieved. Flexion gradually improved. The thigh was then held, and the hip flexed and extended cyclically, allowing the distal portion of the lower extremity to flex and extend at the knee joint. Further adhesive tissue was audibly broken up. Again we placed the knee in flexion and applied force to the proximal tibia, with final lysis of adhesions. The knee was then brought into extension and gentle downward pressure was placed to break up adhesions in extension. Range of motion at the end of the manipulation with no pressure being held was 5-130. range of motion with gentle pressure at the end of the manipulation was 5-125. Knee stability was confirmed. The patient was woken up without complication. Ice was placed over the knee. EBL: 0 cc COMPLICATIONS: None DRAINS: None SPECIMEN SENT TO PATHOLOGY: none SIGNATURE: Brennan Monsivais MD DATE: March 23, 2023 TIME: 6:05 PM [facility] GLOVERRADHA CAPPS ([id number]) 1940 F Date Time Provider Department 03/18/23 2:00 PM DHEERAJ LANDA During your visit today, we recorded the following information about you: Dheeraj Landa APRN.CNP 03/18/2023 3:02 PM Signed This is a follow up appointment for [...] back we will get this scheduled. Dheeraj Landa APRN.[facility] Orthopaedic Surgery Allergies As of Date: 03/18/2023 Noted Allergy Reaction CODEINE 08/20/2009 8 - GI Upset Comments: Severe vomiting TRAMADOL HCL 02/20/2013 5 - Intolerance Comments: Severe vomiting. CLARITHROMYCIN 02/20/2013 5 - Intolerance Comments: Severe headache HYDROCODONE 02/20/2013 8 - GI Upset Date Reviewed: 03/18/2023 Reviewed by: Destiny Peterson MA - Fully Assessed Reason for Visit: Established Patient [175] Follow Up [171] Post Op [174] Knee Replacement [363] Primary Visit Diagnosis:Arthrofibrosis of knee joint, left [M24.662] Other Visit Diagnosis:Status post left knee replacement [Z96.652] Order(s):meloxicam (MOBIC) 7.5 mg tabletTake 1 tablet by mouth once daily for 21 days. Take with foodDisp: 21 tabletRfl: 0 Prescriptions as of 03/18/2023 - meloxicam (MOBIC) 7.5 mg tablet Take 1 tablet by mouth once daily for 21 days. Take with food - aspirin, enteric coated (ASPIRIN, ENTERIC COATED) 81 mg EC tablet Take 81 mg by mouth once daily. - oxyCODONE IR (ROXICODONE) 5 mg immediate release tablet Take 1-2 tablets by mouth every 6 hours as needed for pain. - ascorbic acid, vitamin C, (VITAMIN C) 500 mg tablet Take 500 mg by mouth once daily. - aspirin, enteric coated (ASPIRIN, ENTERIC COATED) 81 mg EC tablet Take 1 tablet by mouth twice daily for 28 days. - acetaminophen (TYLENOL) 500 mg tablet Take 2 tablets by mouth every 8 hours as needed for pain. - ascorbic acid, vitamin C, (VITAMIN C) 500 mg tablet Take 1 tablet by mouth twice daily with meals for 27 doses. - pantoprazole DR (PROTONIX) 20 mg tablet Take 1 tablet by mouth DAILY (6 AM) for 14 days. - amLODIPine (NORVASC) 5 mg tablet Take 5 mg by mouth once daily. - cholecalciferol, vitamin D3, (VITAMIN D3 ORAL) Take by mouth. not taking - VITAMIN E ORAL Take by mouth once daily. not taking - CALCIUM CARBONATE (CALCIUM 300 ORAL) Take by mouth. - OMEGA-3 FATTY ACIDS (OMEGA 3 ORAL) Take by mouth. - multivitamin ORAL tablet Take 1 tablet by mouth once daily. Facility-Administered Medications as of 03/18/2023 - perflutren lipid microspheres 1.3 mL in NaCl (PF) 0.9% 10 mL injection (DEFINITY) - sodium chloride 0.9 % (flush) 10 mL (BD POSIFLUSH) Meds Comments as of 10/14/2012: glucosamine chondroitin/fish oil/garlic Occuvite daily for vision. HELD VITAMINS FOR A WEEK Problem List As Of Date 03/18/2023 Noted Resolved Hypercholesteremia [E78.00] 04/22/2011 Osteopenia [M85.80] 05/12/2011 Hip arthritis [M16.10] 10/14/2011 03/23/2012 Hip pain [M25.559] 10/14/2011 03/12/2017 Muscle weakness (generalized) [M62.81] 01/22/2012 12/11/2022 Rotator cuff arthropathy [M12.819] 09/27/2013 03/12/2017 Essential hypertension, benign [I10] 12/11/2022 GERD (gastroesophageal reflux disease) [K21.9] 12/11/2022 Murmur [R01.1] 12/11/2022 Class 1 obesity due to excess calories with ser*12/11/2022 History of right knee joint replacement [Z96.65*12/11/2022 History of right hip replacement [Z96.641] 12/11/2022 Prescriptions ordered this encounter Disp Refills Start End MELOXICAM 7.5 MG TABLET 21 t* 0 03/18/2023 04/08/2023 Route: ORAL Sig: Take 1 tablet by mouth once daily for 21 days. Take (more content not included)... Normal [facility] Chahal Basophil percentageOrdered B y: Dr. Gonzalez on 02-26-2023 Chloride [Moles/Vol] 102 mmol/L 98-107 [facility] Cholesterol [Mass/Vol] 205 mg/dL <200 [facility] Comment on above: <200 mg/dL Desirable 200-240 mg/dL Borderline >240 mg/dL High Risk Glucose [Mass/Vol] 101 mg/dL 74-106 [facility] Comment on above: Fasting Glucose resu lt from 100 to 125 mg/dL suggests IMPAIRED HOMEOSTASIS per A.D.A. criteria. Potassium [Moles/Vol] 4.3 mmol/L 3.5-5.1 [facility] Sodium [Moles/Vol] 135 mmol/L 136-145 [facility] Triglyceride [Mass/Vol] 218 mg/dL <199 [facility] Comment on above: The drugs N-Acetylcy steine and Metamizole may falsely depress this assay.Serum Triglycerides Reference Interval Normal <150 mg/dL Borderline high 150 - 199 mg/dL High 200 - 499 mg/dL Very High > or = 500 mg/dL Laboratory - Chemistry and C hemistry - challengeOrdered By: Dr. Gonzalez on 02-26-2023 CO2 [Moles/Vol] 26.0 mmol/L 21.0-32.0 [facility] Urea nitrogen/Creatinine [Mass ratio] 22.2 mg/mg 10-20 [facility] No Panel InformationOrdered By: Dr. Gonzalez on 02-26-2023 Estimated GFR (MDRD) Amer 72 mL/min >60 [facility] Comment on above: GFR Calc Estimated GFR (MDRD) Non-Af Amer 60 mL/min >60 [facility] Comment on above: Non- GFR Calc Serum or plasma calcium pastor urement (mass/volume)Ordered By: Dr. Gonzalez on 02-26-2023 Calcium [Mass/Vol] 9.7 mg/dL 8.5-10.1 [facility] Serum or plasma cholesterol in HDL measurement (mass/volume)Ordered By: Dr. Gonzalez on 02-26-2023 Cholesterol in HDL [Mass/Vol] 54 mg/dL >40 [facility] Comment on above: The drugs N-Acetylcy steine and Metamizole may falsely depress this assay. Reference Range HDL <40 mg/dL Low HDL Cholesterol HDL >or= 60 mg/dL High HDL Cholesterol Serum or plasma cholesterol in VLDL measurement (mass/volume)Ordered By: Dr. Gonzalez on 02-26-2023 Cholesterol in VLDL [Mass/Vol] 44 mg/dL 5-40 [facility] Serum or plasma creatinine m easurement (mass/volume)Ordered By: Dr. Gonzalez on 02-26-2023 Creatinine [Mass/Vol] 0.95 mg/dL 0.55-1.02 [facility] Comment on above: The validity of the calculated GFR & GFRAA in patients over 70 years has not been determined. Clinical correlation is essential. Serum or plasma low density lipoprotein (LDL) cholesterol measurement (mass/volume)Ordered By: Dr. Gonzalez on 02-26-2023 Cholesterol in LDL [Mass/Vol] 107 mg/dL 0-130 [facility] Serum or plasma urea nitroge n measurement (mass/volume)Ordered By: Dr. Gonzalez on 02-26-2023 Urea nitrogen [Mass/Vol] 21 mg/dL 7-18 [facility] Thin prep Papanicolaou smear with manual screeningOrdered By: Dr. Gonzalez on 02-26-2023 Thin prep Papanicolaou smear with manual screening 7 5-15 [facility] CNOVon 02-18-2023 CNOV Office Visit (ORMDNA ) RADHA GLOVER ([id number]) 1940 F Date Time Provider Department 02/18/23 2:00 PM DHEERAJ LANDA During your visit today, we recorded the following information about you: Dheeraj Landa APRN.CNP 02/19/2023 9:23 AM Signed Post-op Office Visit Radha Glover 82 year old February 19, 2023 9:08 AM Surgery Date: 12/28/22 History: Radha Glover Is now 7 weeks out from [...] with cane Incision well-approximated, no drainage, normal faina-incisional erythema ROM 0 - 95 (115 pre-op) Distally DP/PT palpable Distally S/S/SP/DP/T intact at baseline Distally DF/EHL/PF intact at baseline Negative romario/calf tenderness Xrays: No new today Assessment and Plan: Radha Glover Is here for a second post-op [...] new swelling, drainage, shortness of breath Dheeraj Landa APRN.[facility] Orthopaedic Surgery Referring Provider: BRENNAN MONSIVAIS [[id number]] Allergies As of Date: 02/18/2023 Noted Allergy Reaction CODEINE 08/20/2009 8 - GI Upset Comments: Severe vomiting TRAMADOL HCL 02/20/2013 5 - Intolerance Comments: Severe vomiting. CLARITHROMYCIN 02/20/2013 5 - Intolerance Comments: Severe headache HYDROCODONE 02/20/2013 8 - GI Upset Date Reviewed: 02/18/2023 Reviewed by: Destiny Peterson MA - Fully Assessed Reason for Visit: Established Patient [175] Follow Up [171] Knee Replacement [363] Post Op [174] Primary Visit Diagnosis:Stiffness of left knee [M25.662] Other Visit Diagnosis:Status post left knee replacement [Z96.652] Order(s):methylPREDNISolone (MEDROL, BRITTANY,) 4 mg Dose-PackTake 1 tablet by mouth as directed for 5 days. As directed on packageDisp: 21 tabletRfl: 0 CONSULT TO PHYSICAL THERAPY [9032] Order #: [id number]: 1 FUTURE Prescriptions as of 02/19/2023 - aspirin, enteric coated (ASPIRIN, ENTERIC COATED) 81 mg EC tablet Take 81 mg by mouth once daily. - methylPREDNISolone (MEDROL, BRITTANY,) 4 mg Dose-Pack Take 1 tablet by mouth as directed for 5 days. As directed on package - oxyCODONE IR (ROXICODONE) 5 mg immediate release tablet Take 1-2 tablets by mouth every 6 hours as needed for pain. - ascorbic acid, vitamin C, (VITAMIN C) 500 mg tablet Take 500 mg by mouth once daily. - aspirin, enteric coated (ASPIRIN, ENTERIC COATED) 81 mg EC tablet Take 1 tablet by mouth twice daily for 28 days. - acetaminophen (TYLENOL) 500 mg tablet Take 2 tablets by mouth every 8 hours as needed for pain. - ascorbic acid, vitamin C, (VITAMIN C) 500 mg tablet Take 1 tablet by mouth twice daily with meals for 27 doses. - pantoprazole DR (PROTONIX) 20 mg tablet Take 1 tablet by mouth DAILY (6 AM) for 14 days. - amLODIPine (NORVASC) 5 mg tablet Take 5 mg by mouth once daily. - cholecalciferol, vitamin D3, (VITAMIN D3 ORAL) Take by mouth. not taking - VITAMIN E ORAL Take by mouth once daily. not taking - CALCIUM CARBONATE (CALCIUM 300 ORAL) Take by mouth. - OMEGA-3 FATTY ACIDS (OMEGA 3 ORAL) Take by mouth. - multivitamin ORAL tablet Take 1 tablet by mouth once daily. Facility-Administered Medications as of 02/19/2023 - perflutren lipid microspheres 1.3 mL in NaCl (PF) 0.9% 10 mL injection (DEFINITY) - sodium chloride 0.9 % (flush) 10 mL (BD POSIFLUSH) Meds Comments as of 10/14/2012: glucosamine chondroitin/fish oil/garlic Occuvite daily for vision. HELD VITAMINS FOR A WEEK Problem List As Of Date 02/18/2023 Noted Resolved Hypercholesteremia [E78.00] 04/22/2011 Osteopenia [M85.80] 05/12/2011 Hip arthritis [M16.10] 10/14/2011 03/23/2012 Hip pain [M25.559] 10/14/2011 03/12/2017 Muscle weakness (generalized) [M62.81] 01/22/2012 12/11/2022 Rotator cuff arthropathy [M12.819] 09/27/2013 03/12/2017 Essential hypertension, benign [I10] 12/11/2022 GERD (gastroesophageal reflux disease) [K21.9] 12/11/2022 Murmur [R01.1] 12/11/2022 Class 1 obesity due to excess calories with ser*12/11/2022 History of right knee joint replacement [Z96.65*12/11/2022 History of right hip replacement [Z96.641] 12/11/2022 Prescriptions ordered this encounter Disp R (more content not included)... Normal [facility] XR Knee AP and Lateral and M erchantson 01-17-2023 IMPRESSION: Interval TKA Flower Cheniller: RHYS Transcribe Date/Time: Jan 17 2023 4:40P Dictated by : DAVIS RYDER MD This examination was interpreted and the report reviewed and electronically signed by: DAVIS RYDER MD on Jan 17 2023 4:41PM EST [facility] * * *Final Report* * * DATE OF EXAM: Jan 14 2023 1:39PM MD 5208 - XR KNEE 3V AP/LAT/MERCHANT LT / PROCEDURE REASON: multiple diagnoses * * * * Physician Interpretation * * * * PROCEDURE: Left knee INDICATION: Chronic pain of left knee .follow up TECHNIQUE: XR KNEE 3V AP/LAT/MERCHANT LT COMPARISON: 07/17/2022 FINDINGS: There is a new total knee arthroplasty in satisfactory position without evidence for loosening. Expected postoperative soft tissue swelling and small joint effusion. Lucencies in the distal femur likely due to the robotic surgery. No periprosthetic fracture or soft tissue emphysema. Right TKA is evident. [facility] Provider, [facility] - 01/17/2023 * * *Final Report* * * DATE OF EXAM: Jan 14 2023 1:39PM TWILA 5208 - XR KNEE 3V AP/LAT/MERCHANT LT / PROCEDURE REASON: multiple diagnoses * * * * Physician Interpretation * * * * PROCEDURE: Left knee INDICATION: Chronic pain of left knee .follow up TECHNIQUE: XR KNEE 3V AP/LAT/MERCHANT LT COMPARISON: 07/17/2022 FINDINGS: There is a new total knee arthroplasty in satisfactory position without evidence for loosening. Expected postoperative soft tissue swelling and small joint effusion. Lucencies in the distal femur likely due to the robotic surgery. No periprosthetic fracture or soft tissue emphysema. Right TKA is evident. IMPRESSION IMPRESSION: Interval TKA Flower Cheniller: PSCPark Transcribe Date/Time: Jan 17 2023 4:40P Dictated by : DAVIS RYDER MD This examination was interpreted and the report reviewed and electronically signed by: DAVIS RYDER MD on Jan 17 2023 4:41PM [facility] XR Knee AP and Lateral and M erchantsOrdered By: [facility] Provider on 01-17-2023 [facility] CNOVon 01-14-2023 CNOV Office Visit (ORMDNA ) RADHA GLOVER ([id number]) 1940 F Date Time Provider Department 01/14/23 2:00 PM DHEERAJ LANDA During your visit today, we recorded the following information about you: Dheeraj Landa APRN.CNP 01/14/2023 3:18 PM Signed Post-op Office Visit Radha Glover 82 year old January 14, 2023 2:57 PM Surgery Date: 12/28/22 History: Radha Glover Is now 2 weeks out from S/P Left TKA. Post-operative course has been without complication. No readmission/complications Subjective: Patient reports continued pain. Overall is doing well. Walker ambulatory aid Oxycodone opioid pain medication Objective: Ambulates with walker Incision well-approximated, no drainage, normal faina-incisional erythema ROM 5 - 95 Distally DP/PT palpable Distally S/S/SP/DP/T intact at baseline Distally DF/EHL/PF intact at baseline Negative romario/calf tenderness Xrays: Well-positioned total knee replacement in appropriate alignment with no evidence of loosening Assessment and Plan: Radha Glover Is here for a first post-op [...] new swelling, drainage, shortness of breath Dheeraj Landa APRN.CNP Orthopaedic Surgery Allergies As of Date: 01/14/2023 Noted Allergy Reaction CODEINE 08/20/2009 8 - GI Upset Comments: Severe vomiting TRAMADOL HCL 02/20/2013 5 - Intolerance Comments: Severe vomiting. CLARITHROMYCIN 02/20/2013 5 - Intolerance Comments: Severe headache HYDROCODONE 02/20/2013 8 - GI Upset Date Reviewed: 01/14/2023 Reviewed by: Destiny Peterson MA - Fully Assessed Reason for Visit: Established Patient [175] Follow Up [171] Post Op [174] Knee Replacement [363] Primary Visit Diagnosis:Status post left knee replacement [Z96.652] Prescriptions as of 01/14/2023 - ascorbic acid, vitamin C, (VITAMIN C) 500 mg tablet Take 500 mg by mouth once daily. - aspirin, enteric coated (ASPIRIN, ENTERIC COATED) 81 mg EC tablet Take 1 tablet by mouth twice daily for 28 days. - acetaminophen (TYLENOL) 500 mg tablet Take 2 tablets by mouth every 8 hours as needed for pain. - ascorbic acid, vitamin C, (VITAMIN C) 500 mg tablet Take 1 tablet by mouth twice daily with meals for 27 doses. - docusate sodium (COLACE) 100 mg capsule Take 1 capsule by mouth twice daily as needed for constipation. - polyethylene glycol 3350 17 gram/dose powder Take 1 capful (17 grams) by mouth once daily as needed for constipation for up to 10 days. Dissolve dose in 4 - 8 ounces of liquid and take as directed. - oxyCODONE IR (ROXICODONE) 5 mg immediate release tablet Take 1-2 tablets by mouth every 6 hours as needed for pain. - pantoprazole DR (PROTONIX) 20 mg tablet Take 1 tablet by mouth DAILY (6 AM) for 14 days. - amLODIPine (NORVASC) 5 mg tablet Take 5 mg by mouth once daily. - cholecalciferol, vitamin D3, (VITAMIN D3 ORAL) Take by mouth. not taking - VITAMIN E ORAL Take by mouth once daily. not taking - CALCIUM CARBONATE (CALCIUM 300 ORAL) Take by mouth. - OMEGA-3 FATTY ACIDS (OMEGA 3 ORAL) Take by mouth. - multivitamin ORAL tablet Take 1 tablet by mouth once daily. Facility-Administered Medications as of 01/14/2023 - perflutren lipid microspheres 1.3 mL in NaCl (PF) 0.9% 10 mL injection (DEFINITY) - sodium chloride 0.9 % (flush) 10 mL (BD POSIFLUSH) Meds Comments as of 10/14/2012: glucosamine chondroitin/fish oil/garlic Occuvite daily for vision. HELD VITAMINS FOR A WEEK Problem List As Of Date 01/14/2023 Noted Resolved Hypercholesteremia [E78.00] 04/22/2011 Osteopenia [M85.80] 05/12/2011 Hip arthritis [M16.10] 10/14/2011 03/23/2012 Hip pain [M25.559] 10/14/2011 03/12/2017 Muscle weakness (generalized) [M62.81] 01/22/2012 12/11/2022 Rotator cuff arthropathy [M12.819] 09/27/2013 03/12/2017 Essential hypertension, benign [I10] 12/11/2022 GERD (gastroesophageal reflux disease) [K21.9] 12/11/2022 Murmur [R01.1] 12/11/2022 Class 1 obesity due to excess calories with ser*12/11/2022 History of right knee joint replacement [Z96.65*12/11/2022 History of right hip replacement [Z96.641] 12/11/2022 Encounter Status:Closed by DHEERAJ LANDA on 01/14/23 Normal [facility] XR KNEE 3V AP/LAT/MERCHANT L Ton 01-14-2023 XR KNEE 3V AP/LAT/MERCHANT LT * * *Final Report* * * DATE OF EXAM: Jan 14 2023 1:39PM TWILA 5208 - XR KNEE 3V AP/LAT/MERCHANT LT / PROCEDURE REASON: multiple diagnoses * * * * Physician Interpretation * * * * PROCEDURE: Left knee INDICATION: Chronic pain of left knee .follow up TECHNIQUE: XR KNEE 3V AP/LAT/MERCHANT LT COMPARISON: 07/17/2022 FINDINGS: There is a new total knee arthroplasty in satisfactory position without evidence for loosening. Expected postoperative soft tissue swelling and small joint effusion. Lucencies in the distal femur likely due to the robotic surgery. No periprosthetic fracture or soft tissue emphysema. Right TKA is evident. IMPRESSION: Interval TKA Flower Cheniller: RHYS Transcribe Date/Time: Jan 17 2023 4:40P Dictated by : DAVIS RYDER MD This examination was interpreted and the report reviewed and electronically signed by: DAVIS RYDER MD on Jan 17 2023 4:41PM EST [id number] [facility] XR Knee AP and Lateral and M nicorickeyconstantin 01-14-2023 Radiology Study observation (narrative) [facility] Florencio 01-12-2023 CNPN Telephone (HCSIND) RADHA GLOVER ([id number]) 1940 F Date Time Provider Department 01/12/23 KAELYN BLAKE During your visit today, we recorded the following information about you: Allergies As of Date: 01/12/2023 Noted Allergy Reaction CODEINE 08/20/2009 8 - GI Upset Comments: Severe vomiting TRAMADOL HCL 02/20/2013 5 - Intolerance Comments: Severe vomiting. CLARITHROMYCIN 02/20/2013 5 - Intolerance Comments: Severe headache HYDROCODONE 02/20/2013 8 - GI Upset Date Reviewed: 01/11/2023 Reviewed by: Kaelyn Blake, PT - Fully Assessed Reason for Visit: Home Care [4073] Cmt: Out patient PT Prescriptions as of 01/12/2023 - aspirin, enteric coated (ASPIRIN, ENTERIC COATED) 81 mg EC tablet Take 1 tablet by mouth twice daily for 28 days. - acetaminophen (TYLENOL) 500 mg tablet Take 2 tablets by mouth every 8 hours as needed for pain. - ascorbic acid, vitamin C, (VITAMIN C) 500 mg tablet Take 1 tablet by mouth twice daily with meals for 27 doses. - docusate sodium (COLACE) 100 mg capsule Take 1 capsule by mouth twice daily as needed for constipation. - polyethylene glycol 3350 17 gram/dose powder Take 1 capful (17 grams) by mouth once daily as needed for constipation for up to 10 days. Dissolve dose in 4 - 8 ounces of liquid and take as directed. - oxyCODONE IR (ROXICODONE) 5 mg immediate release tablet Take 1-2 tablets by mouth every 6 hours as needed for pain. - meloxicam (MOBIC) 7.5 mg tablet Take 1 tablet by mouth once daily for 14 days. - pantoprazole DR (PROTONIX) 20 mg tablet Take 1 tablet by mouth DAILY (6 AM) for 14 days. - amLODIPine (NORVASC) 5 mg tablet Take 5 mg by mouth once daily. - cholecalciferol, vitamin D3, (VITAMIN D3 ORAL) Take by mouth. not taking - VITAMIN E ORAL Take by mouth once daily. not taking - CALCIUM CARBONATE (CALCIUM 300 ORAL) Take by mouth. - OMEGA-3 FATTY ACIDS (OMEGA 3 ORAL) Take by mouth. - multivitamin ORAL tablet Take 1 tablet by mouth once daily. Facility-Administered Medications as of 01/12/2023 - perflutren lipid microspheres 1.3 mL in NaCl (PF) 0.9% 10 mL injection (DEFINITY) - sodium chloride 0.9 % (flush) 10 mL (BD POSIFLUSH) Meds Comments as of 10/14/2012: glucosamine chondroitin/fish oil/garlic Occuvite daily for vision. HELD VITAMINS FOR A WEEK Problem List As Of Date 01/12/2023 Noted Resolved Hypercholesteremia [E78.00] 04/22/2011 Osteopenia [M85.80] 05/12/2011 Hip arthritis [M16.10] 10/14/2011 03/23/2012 Hip pain [M25.559] 10/14/2011 03/12/2017 Muscle weakness (generalized) [M62.81] 01/22/2012 12/11/2022 Rotator cuff arthropathy [M12.819] 09/27/2013 03/12/2017 Essential hypertension, benign [I10] 12/11/2022 GERD (gastroesophageal reflux disease) [K21.9] 12/11/2022 Murmur [R01.1] 12/11/2022 Class 1 obesity due to excess calories with ser*12/11/2022 History of right knee joint replacement [Z96.65*12/11/2022 History of right hip replacement [Z96.641] 12/11/2022 Encounter Status:Closed by KAELYN BLAKE on 01/12/23 [facility] Florencio 01-05-2023 CNPN Telephone (HCSIND) RADHA GLOVER ([id number]) 1940 F Date Time Provider Department 01/05/23 KAELYN BLAKE During your visit today, we recorded the following information about you: Allergies As of Date: 01/05/2023 Noted Allergy Reaction CODEINE 08/20/2009 8 - GI Upset Comments: Severe vomiting TRAMADOL HCL 02/20/2013 5 - Intolerance Comments: Severe vomiting. CLARITHROMYCIN 02/20/2013 5 - Intolerance Comments: Severe headache HYDROCODONE 02/20/2013 8 - GI Upset Date Reviewed: 01/05/2023 Reviewed by: Kaelyn Blake, PT - Fully Assessed Reason for Visit: Home Care [4073] Cmt: Dressing removal Prescriptions as of 01/05/2023 - aspirin, enteric coated (ASPIRIN, ENTERIC COATED) 81 mg EC tablet Take 1 tablet by mouth twice daily for 28 days. - acetaminophen (TYLENOL) 500 mg tablet Take 2 tablets by mouth every 8 hours as needed for pain. - ascorbic acid, vitamin C, (VITAMIN C) 500 mg tablet Take 1 tablet by mouth twice daily with meals for 27 doses. - docusate sodium (COLACE) 100 mg capsule Take 1 capsule by mouth twice daily as needed for constipation. - polyethylene glycol 3350 17 gram/dose powder Take 1 capful (17 grams) by mouth once daily as needed for constipation for up to 10 days. Dissolve dose in 4 - 8 ounces of liquid and take as directed. - oxyCODONE IR (ROXICODONE) 5 mg immediate release tablet Take 1-2 tablets by mouth every 6 hours as needed for pain. - meloxicam (MOBIC) 7.5 mg tablet Take 1 tablet by mouth once daily for 14 days. - pantoprazole DR (PROTONIX) 20 mg tablet Take 1 tablet by mouth DAILY (6 AM) for 14 days. - amLODIPine (NORVASC) 5 mg tablet Take 5 mg by mouth once daily. - cholecalciferol, vitamin D3, (VITAMIN D3 ORAL) Take by mouth. not taking - VITAMIN E ORAL Take by mouth once daily. not taking - CALCIUM CARBONATE (CALCIUM 300 ORAL) Take by mouth. - OMEGA-3 FATTY ACIDS (OMEGA 3 ORAL) Take by mouth. - multivitamin ORAL tablet Take 1 tablet by mouth once daily. Facility-Administered Medications as of 01/05/2023 - perflutren lipid microspheres 1.3 mL in NaCl (PF) 0.9% 10 mL injection (DEFINITY) - sodium chloride 0.9 % (flush) 10 mL (BD POSIFLUSH) Meds Comments as of 10/14/2012: glucosamine chondroitin/fish oil/garlic Occuvite daily for vision. HELD VITAMINS FOR A WEEK Problem List As Of Date 01/05/2023 Noted Resolved Hypercholesteremia [E78.00] 04/22/2011 Osteopenia [M85.80] 05/12/2011 Hip arthritis [M16.10] 10/14/2011 03/23/2012 Hip pain [M25.559] 10/14/2011 03/12/2017 Muscle weakness (generalized) [M62.81] 01/22/2012 12/11/2022 Rotator cuff arthropathy [M12.819] 09/27/2013 03/12/2017 Essential hypertension, benign [I10] 12/11/2022 GERD (gastroesophageal reflux disease) [K21.9] 12/11/2022 Murmur [R01.1] 12/11/2022 Class 1 obesity due to excess calories with ser*12/11/2022 History of right knee joint replacement [Z96.65*12/11/2022 History of right hip replacement [Z96.641] 12/11/2022 Encounter Status:Closed by KAELYN LBAKE on 01/05/23 Normal [facility] Basic metabolic 2000 panelon 12-29-2022 Anion gap [Moles/Vol] 7 mmol/L Low 9-18 [facility] Comment on above: Order Comment: Speci men Type: BLOOD SPECIMENOrdering Facility: [facility] Address: [address] [place] [id number] Performed By: #### 2 4321-2 ####[facility] LABORATORYCLIA [id number] [place] [address] [place] Calcium [Mass/Vol] 8.9 mg/dL Normal 8.5-10.2 [facility] Comment on above: Order Comment: Speci men Type: BLOOD SPECIMENOrdering Facility: [facility] Address: [address] [place] [address] Performed By: #### 2 4321-2 ####MCKE[facility] LABORATORYCLIA [id number] [place] [address] [place] Chloride [Moles/Vol] 103 mmol/L Normal 97-[address] [facility] Comment on above: Order Comment: Speci men Type: BLOOD SPECIMENOrdering Facility: [facility] Address: [address] [place] [address] Performed By: #### 2 4321-2 ####MCKEON LABORATORYCLIA [id number] [place] [address] [place] CO2 [Moles/Vol] 28 mmol/L Normal 22-30 [facility] Comment on above: Order Comment: Speci men Type: BLOOD SPECIMENOrdering Facility: [facility] Address: [address] [place] [address] Performed By: #### 2 4321-2 ####MCKEON LABORATORYCLIA [id number] [place] [address] [place] Creatinine [Mass/Vol] 1.06 mg/dL High 0.58-0.96 [facility] Comment on above: Order Comment: Speci men Type: BLOOD SPECIMENOrdering Facility: [facility] Address: [address] [place] [address] Performed By: #### 2 4321-2 ####MCKEON LABORATORYCLIA [id number] [place] [address] [place] ESTIMATED GLOMERULAR FILTRATION RATE 52 mL/min/1.73m??? Low >=60 [facility] Comment on above: Order Comment: Speci men Type: BLOOD SPECIMENOrdering Facility: [facility] Address: [address] [place] [address] Result Comment: Eliana mated Glomerular Filtration Rate (eGFR) is calculated using the 2020 CKD-EPI creatinine equation. This equation utilizes serum creatinine, sex, and age as parameters. The creatinine assay has traceable calibration to isotope dilution-mass spectrometry. Refer to KDIGO guidelines for clinical interpretation. In patients with unstable renal function, e.g. those with acute kidney injury, the eGFR may not accurately reflect actual GFR. Performed By: #### 2 4321-2 ####MCKEON LABORATORYCLIA [id number] [place] [address] [place] Glucose [Mass/Vol] 128 mg/dL High 74-99 [facility] Comment on above: Order Comment: Yanely mendoza Type: BLOOD SPECIMENOrdering Facility: [facility] Address: [address] [phone] Result Comment: The [place] [employer] (ADA) provides guidance for cutoff values for fasting glucose and random glucose. The ADA defines fasting as no caloric intake for at least 8 hours. Fasting plasma glucose results between 100 to 125 mg/dL indicate increased risk for diabetes (prediabetes). Fasting plasma glucose results greater than or equal to 126 mg/dL meet the criteria for diagnosis of diabetes. In the absence of unequivocal hyperglycemia, results should be confirmed by repeat testing. In a patient with classic symptoms of hyperglycemia or hyperglycemic crisis, random plasma glucose results greater than or equal to 200 mg/dL meet the criteria for diagnosis of diabetes. Reference: Standards of Medical Care in Diabetes 2016, [place] [employer]. Diabetes Care. 2016.39(Suppl 1). Performed By: #### 2 4321-2 ####MCKE[facility] LABORATORYCLIA [id number] [place] [id number] [place] Potassium [Moles/Vol] 4.3 mmol/L Normal 3.7-5.1 [facility] Comment on above: Order Comment: Yanely mendoza Type: BLOOD SPECIMENOrdering Facility: [facility] Address: [address] [phone] Performed By: #### 2 4321-2 ####MCKE[facility] LABORATORYCLIA [id number] [place] [id number] [place] Sodium [Moles/Vol] 138 mmol/L Normal 136-144 [facility] Comment on above: Order Comment: Yanely mendoza Type: BLOOD SPECIMENOrdering Facility: [facility] Address: [address] [phone] Performed By: #### 2 4321-2 ####LOOKE[facility] LABORATORYCLIA [id number] [place] [id number] [facility] Urea nitrogen [Mass/Vol] 18 mg/dL Normal 7- [facility] Comment on above: Order Comment: Speci men Type: BLOOD SPECIMENOrdering Facility: [facility] Address: [place] [address] Performed By: #### 2 4321-2 ####LOOKE[facility] LABORATORYCLIA [id number] [place] [address] [facility] [place] CASE MANAGEMon 12-29-2022 CASE MANAGEM HNO ID: [id number] Author: Mayda Briscoe RN Service: ? Author Type: Registered Nurse Type: Care Mgt Progress Note Filed: 12/29/2022 12:08 PM Note Text: CARE MANAGEMENT DISCHARGE NOTE SERVICE DATE: December 29, 2022 SERVICE TIME: 12:07 PM Admission Date: 12/28/2022 LOS: 0 days Discharge Arrangement Discharge Arrangement: Home with Home Health Services Arranged Medical Services: Skilled Home Health Care Type: Physical Therapy Provider Name: [facility] Caregiver Assessment Caregiver is ready, willing and able to meet the patient's needs as recommended by the inter-professional team: Yes Name of Caregiver: Daughter Transportation Arrangements Transportation Arrangements: Car- Daughter to transport Handoff Communication: Handoff to: Primary Care Physician Primary Care Physician Name/Phone: Dr.Paul Gonzalez- [phone] Additional Information: Discharge order written for today. [facility] will be seeing the patient for Home PT with a start of care within 24-48 hours. Notified [facility] of the patients discharge home today. Discharge Information Row Name Admission (Current) from 12/28/[address] Care Agency [facility] Start of Care -- Within 24-48 hours SIGNATURE: Mayda Briscoe RN PATIENT NAME: Radha Glover DATE: December 29, 2022 TIME: 12:07 PM CONTACT #: [phone] Normal [facility] CASE MGT INIT ASSESon 2022 CASE MGT INIT ASSES HNO ID: [id number] Author: Mayda Briscoe RN Service: ? Author Type: Registered Nurse Type: Care Mgt Initial Assessment Filed: 12/29/2022 10:33 AM Note Text: CARE MANAGEMENT: ASSESSMENT AND DISCHARGE PLAN SERVICE DATE: December 29, 2022 SERVICE TIME: 10:31 AM PCP: Geo Gonzalez MD Primary Contact: Extended Emergency Contact Information Primary Emergency Contact: Janeen Cox Mobile Relation: Daughter Admission Status: Extended Recovery Insurance Provider: [employer] MEDICARE PPO Potential Transition Plans Home OT/PT Advance Directives Current Advance Directive: None [place] Attempted to Assist with AD Completion: Yes Current Living Arrangements and Support Lives with: Alone Type of Residence: Private Residence (Apartment or Condo) Does the patient have to climb stairs at home?: No Support: Children How do you manage to accomplish the following: Independent: Ambulation;Bathe/Shower;Balbir ss;Meals/Meal Prep;Going to the bathroom;Medication Management Current Services/Equipment Current Post-Acute Service(s): DME Current DME Type: Walker, Cane Discharge Planning Patient Goal(s): Better mobility [place] Explained: [place] of [place] Given: Yes Level of Care Discussed: Home Care Are you interested in bedside delivery of your medications? Yes Discharge Planning Participant(s): Patient Patient/Family Comments: Caregiver Assessment: Caregiver is ready, willing and able to meet the patient's needs as recommended by the inter-professional team: Yes Name of Caregiver: Daughter Transport at Discharge: Transportation Arrangements: Car Needs Prior to Discharge: Needs Prior to Discharge: Ready for Discharge Post-Acute Discharge Plan: Review of the chart and met with the patient. The patient lives alone in a one story apartment. PT- Home PT. Discussed PT recommendations with the patient. Referral to [facility] and they are able to accept. CM department will continue to follow for DC needs. SIGNATURE: Mayda Briscoe RN PATIENT NAME: Radha Glover DATE: December 29, 2022 TIME: 10:31 AM CONTACT #: [phone] Normal [facility] CBC panel Auto (Bld)on 12-29 Erythrocyte distribution width (RBC) [Ratio] 12.3 % Normal 11.5-15.0 [facility] Comment on above: Order Comment: Speci men Type: BLOOD SPECIMENOrdering Facility: [facility] Address: [address] [place] [address] Performed By: #### 5 8410-2 ####[facility] LABORATORYCLIA [id number] [address] Hematocrit (Bld) [Volume fraction] 32.6 % Low 36.0-46.0 [facility] Comment on above: Order Comment: Speci men Type: BLOOD SPECIMENOrdering Facility: [facility] Address: [address] [place] [address] Performed By: #### 5 8410-2 ####[facility] LABORATORYCLIA [id number] [address] Hemoglobin (Bld) [Mass/Vol] 10.8 g/dL Low 11.5-15.5 [facility] Comment on above: Order Comment: Speci men Type: BLOOD SPECIMENOrdering Facility: [facility] Address: [address] [place] [address] Performed By: #### 5 8410-2 ####MC[facility] LABORATORYCLIA [id number] [address] MCH (RBC) [Entitic mass] 30.5 pg Normal 26.0-34.0 [facility] Comment on above: Order Comment: Speci men Type: BLOOD SPECIMENOrdering Facility: [facility] Address: [address] [place] [address] Performed By: #### 5 8410-2 ####[facility] LABORATORYCLIA [id number] [address] MCHC (RBC) [Mass/Vol] 33.1 g/dL Normal 30.5-36.0 [facility] Comment on above: Order Comment: Speci men Type: BLOOD SPECIMENOrdering Facility: [facility] Address: [address] [place] [address] Performed By: #### 5 8410-2 ####MCKE[facility] LABORATORYCLIA [id number] [place] [address] [place] MCV (RBC) [Entitic vol] 92.1 fL Normal 80.0-100.0 [facility] Comment on above: Order Comment: Speci men Type: BLOOD SPECIMENOrdering Facility: [facility] Address: [address] [address] Performed By: #### 5 8410-2 ####MCKE[facility] LABORATORYCLIA [id number] [place] [address] [place] Nucleated RBC (Bld) [#/Vol] 10*3/uL Normal <0.01 [facility] Comment on above: Order Comment: Speci men Type: BLOOD SPECIMENOrdering Facility: [facility] Address: [address] [place] [address] Performed By: #### 5 8410-2 ####MCKE[facility] LABORATORYCLIA [id number] [place] [address] [place] Platelet mean volume (Bld) [Entitic vol] 10.7 fL Normal 9.0-12.7 [facility] Comment on above: Order Comment: Speci men Type: BLOOD SPECIMENOrdering Facility: [facility] Address: [address] [address] Performed By: #### 5 8410-2 ####MCKE[facility] LABORATORYCLIA [id number] [place] [address] [place] Platelets (Bld) [#/Vol] 216 10*3/uL Normal 150-400 [facility] Comment on above: Order Comment: Speci men Type: BLOOD SPECIMENOrdering Facility: [facility] Address: [address] [address] Performed By: #### 5 8410-2 ####MCKE[facility] LABORATORYCLIA [id number] [place] [address] [place] RBC (Bld) [#/Vol] 3.54 10*6/uL Low 3.90-5.20 [facility] Comment on above: Order Comment: Speci men Type: BLOOD SPECIMENOrdering Facility: [facility] Address: [address] [address] Performed By: #### 5 8410-2 ####MCKE[facility] LABORATORYCLIA [id number] [place] [address] [facility] [place] WBC (Bld) [#/Vol] 10.86 10*3/uL Normal 3.70-11.[address] [facility] Comment on above: Order Comment: Speci men Type: BLOOD SPECIMENOrdering Facility: [facility] Address: [facility] [place] [address] Performed By: #### 5 8410-2 ####[facility] LABORATORYCLIA [id number] [place] [address] [facility] [place] CNCOon 12-29-2022 CNCO Letter Text Normal [facility] CNPNon 12-29-2022 CNPN Telephone (HCSIND) RADHA GLOVER ([id number]) 1940 F Date Time Provider Department 12/29/22 KAYKAY MAO During your visit today, we recorded the following information about you: KAILEE Ross 12/29/2022 10:45 AM Signed Welcome Home Call: a. Date and Time: 10:36 AM 12/29/2022 b. Contact name/relationship: Patient c. Have you been active with any Home Care company in the last 60 days(such as help with bathing, filling medications, checking your blood pressure) ? No. d. [facility] will be providing your care, are you agreeable to starting these services? yes (yes or no) e. Do you have any upcoming appointments in the next few days, or restrictions to your schedule? no f. Caregiver: Patient is able to manage care independently g. Confirmed Visited Location and preferred #: yes Please keep our your medications both over the counter and prescribed out for the home care to review, your hospital discharge instructions and write down any questions you might have. In order to maintain a safe environment for our caregivers, [facility] requires any animals or weapons present in the home be located in a secured location. Our clinicians will call you the night before or the morning of the appointment. Their # may come up restricted but they'll leave a VM for you. In case you have any questions or concerns in the meantime, our # is [phone], option 5 Thank you for your time and have a great day. Kaykay Mao PSS Allergies As of Date: 12/29/2022 Noted Allergy Reaction CODEINE 08/20/2009 8 - GI Upset Comments: Severe vomiting TRAMADOL HCL 02/20/2013 5 - Intolerance Comments: Severe vomiting. CLARITHROMYCIN 02/20/2013 5 - Intolerance Comments: Severe headache HYDROCODONE 02/20/2013 8 - GI Upset Date Reviewed: 12/29/2022 Reviewed by: Domingo Toney RN - Fully Assessed Reason for Visit: Home Care [4073] Cmt: CONFIRMATION CALL Prescriptions as of 12/29/2022 - aspirin, enteric coated (ASPIRIN, ENTERIC COATED) 81 mg EC tablet Take 1 tablet by mouth twice daily for 28 days. - acetaminophen (TYLENOL) 500 mg tablet Take 2 tablets by mouth every 8 hours as needed for pain. - ascorbic acid, vitamin C, (VITAMIN C) 500 mg tablet Take 1 tablet by mouth twice daily with meals for 27 doses. - docusate sodium (COLACE) 100 mg capsule Take 1 capsule by mouth twice daily as needed for constipation. - polyethylene glycol 3350 17 gram/dose powder Take 1 capful (17 grams) by mouth once daily as needed for constipation for up to 10 days. Dissolve dose in 4 - 8 ounces of liquid and take as directed. - oxyCODONE IR (ROXICODONE) 5 mg immediate release tablet Take 1-2 tablets by mouth every 6 hours as needed for pain. - meloxicam (MOBIC) 7.5 mg tablet Take 1 tablet by mouth once daily for 14 days. - pantoprazole DR (PROTONIX) 20 mg tablet Take 1 tablet by mouth DAILY (6 AM) for 14 days. - amLODIPine (NORVASC) 5 mg tablet Take 5 mg by mouth once daily. - cholecalciferol, vitamin D3, (VITAMIN D3 ORAL) Take by mouth. - VITAMIN E ORAL Take by mouth once daily. - CALCIUM CARBONATE (CALCIUM 300 ORAL) Take by mouth. - OMEGA-3 FATTY ACIDS (OMEGA 3 ORAL) Take by mouth. - multivitamin ORAL tablet Take 1 tablet by mouth once daily. Facility-Administered Medications as of 12/29/2022 - scopolamine - VERIFY patch - scopolamine - REMOVE PATCH - amLODIPine 5 mg tab(s) (NORVASC) - lactated ringers iv infusion - oxyCODONE IR 5-10 mg tab(s) (ROXICODONE) - HYDROmorphone 0.2 mg injection (DILAUDID) - acetaminophen 1,000 mg tab(s) (TYLENOL) - keTORolac 15 mg injection (Toradol) - ondansetron orally disintegrating 4 mg tab(s) (ZOFRAN ODT) - ondansetron (PF) 4 mg injection (ZOFRAN) - polyethylene glycol 3350 17 g packet - bisacodyl EC 10 mg tab(s) (DULCOLAX) - aluminum-magnesium hydroxide-simethicone 200-200-20 mg/5 mL 30 mL - ascorbic acid (vitamin C) 500 mg tab(s) (VITAMIN C) - docusate sodium 100 mg cap(s) (COLACE) - senna 17.2 mg tab(s) (SENOKOT) - aspirin, enteric coated 81 mg tab(s) Meds Comments as of 10/14/2012: glucosamine chondroitin/fish oil/garlic Occuvite daily for vision. HELD VITAMINS FOR A WEEK Problem List As Of Date 12/29/2022 Noted Resolved Hypercholesteremia [E78.00] 04/22/2011 Osteopenia [M85.80] 05/12/2011 Hip arthritis [M16.10] 10/14/2011 03/23/2012 Hip pain [M25.559] 10/14/2011 03/12/2017 Muscle weakness (generalized) [M62.81] 01/22/2012 12/11/2022 Rotator cuff arthropathy [M12.819] 09/27/2013 03/12/2017 Essential hypertension, benign [I10] 12/11/2022 GERD (gastroesophageal reflux disease) [K21.9] 12/11/2022 Murmur [R01.1] 12/11/2022 Class 1 obesity due to excess calories with ser*12/11/2022 History of right knee joint replacement [Z96.65*12/11/2022 History of right hip replacement [Z96.641] 12/11/2022 Encounter Nu (more content not included)... Normal [facility] THERAPY NTon 12-29-2022 THERAPY NT HNO ID: [id number] Author: Lela Day PTA Service: Physical Therapy Author Type: Open Claims Representative Type: Therapy (PT/OT/Speech/Resp) Filed: 12/29/2022 1:25 PM Note Text: Attestation signed by Rima Hastings PT at 12/29/2022 4:58 PM I reviewed and agree with the documentation corresponding to this therapy visit. SIGNATURE: Rima Hastings PT DATE: December 29, 2022 TIME: 4:58 PM Physical Therapy Treatment SERVICE DATE: 12/29/2022 SERVICE TIME: 1245 to 1313 ROOM: [place] [address] Recommended Discharge Disposition: Home PT Recommended Discharge Disposition Comments: for increased ROM/strength and safe functional mobility in her home Anticipated Discharge Needs: Supervision at Home, Physical Assist at Home Physical Assist at Home for: Cleaning, Laundry, Meals, Safety, Self Care, Shopping, Transportation Supervision at Home due to: (initially for optimal safety) Recommended Discharge Equipment: No equipment needs anticipated PT 6 Clicks Score: 20 Precautions/Activity Restrictions: Fall Risk, Lines/Tubes/Drains, Total Knee Replacement, Weight Bearing Restrictions, Bed/Chair Alarm Extremity With Weight Bearing Restricted: Left Lower Extremity Left Lower Extremity Weight Bearing Status: WBAT Current Hospital Course: s/p L TKA 12/29/22 Reason for Hospital Admission: scheduled left TKA Relevant Past Medical History: HTN, HLD, R THR, R TKR, R rotator cuff repair Response to Therapy Interventions: Good Participation in Activities, On-Track to Achieve Discharge Goals, Improved Tolerance for Activity, Pain Assessment Comments: Patient successfully able to progress ambulation distance and perform seated exercises with no adverse effects. Patient requires no more than SBA-CGA with all functional mobility and gait training. Patient is safe for DC home. Continued Skilled Needs Due to: Functional Mobility/Skill Impairments Physical Therapy Problem List: Pain, Safety Deficits, Impaired Self Care, Decreased Activity Tolerance, Decreased Range Of Motion, Decreased Strength, Functional Mobility Impairment, Balance Impaired Treatment Interventions: Education, Self Care / Home Management, Energy Conservation Training, Joint Mobility, Strengthening, Functional Mobility Training, Balance Training, Neuromuscular Re-education Plan for Next Visit: Bed Mobility, Fall Prevention, Family Instruction, Gait Training, Exercise Instruction/Handout Home Environment Patient Lives With: Self/Alone Assistance Available: PRN, Other: See Comment Comments: dtr Janeen lives nearby Entry To Home: No Stairs Number Of Stairs To Bed/Bath: 0 - single floor apartment Tub/Shower Type: walk in shower with grab bar at entrance of shower, shower chair and hand held shower Laundry: in apartment Equipment Owned: Cane, Rollator, Walker- Wheeled, Shower Chair, Grab Bars- Shower, Hand Held Shower Prior Functional Level: Within Functional Limits Prior Functional Level Comments: Per patient, indep with ADLs/IADLs, ambulated without AD, +drives, denies falls, sleeps on flat bed Baseline Cognition: Oriented to self, Oriented to place, Oriented to time, Oriented to situation Patient Report: Patient pleasant and agreeable to PT treatment. CURRENT FUNCTIONAL STATUS: Most recent performance Current Functional Mobility Assist Level Additional Information Rolling Supine to Sit Additional Information Patient in bathroom upon arrival Sit to Supine Stand By Assistance HOB flat, no use of rails Scooting Independent forward/retro in bed and chair Sit to Stand Contact Guard Assistance x1 trial from EOB Stand to Sit Contact Guard Assistance x1 trial to chair, x1 trial to EOB, cues for safe approach, hand placement and controlled/eccentric decent Bed to Chair Toilet/Commode Gait Contact Guard Assistance Gait Device: Wheeled Walker Gait Distance (feet): 10'x1, 65'x1 to SBA, step-to gait, cues for upright posture and diaphragmatic breathing Stairs Additional Information Curb Step Additional Information Car Transfer Blank guerra indicate activity not attempted Gait Deviations Left Lower Extremity: Foot clearance decreased, Heel strike during initial stance decreased, Step length decreased, Weight bearing decreased General Deviations/Observations: Jael decreased, Flexed trunk posture, Step length decreased, Antalgic gait Balance: Static Sitting, Dynamic Sitting, Dynamic Standing, Static Standing Static Sitting Balance: Good Patient able to maintain balance without handhold support, limited postural sway Dynamic Sitting Balance: Good Patient accepts moderate challenge, able to maintain balance while picking up object off floor Static Standing Balance: Fair Patient able to maintain balance with handhold support, may require occasi (more content not included)... [facility] THERAPY NT HNO ID: [id number] Author: Aris Montague OT/Carlos Service: ? Author Type: Occupational Therapist Type: Therapy (PT/OT/Speech/Resp) Filed: 12/29/2022 11:25 AM Note Text: Occupational Therapy Evaluation SERVICE DATE: 12/29/2022 SERVICE TIME: 1020 to 1116 ROOM: [place] [address] Recommended Discharge Disposition: Home OT Anticipated Discharge Needs: Supervision at Home, Physical Assist at Home Physical Assist at Home for: Cleaning, Laundry, Meals, Safety, Self Care, Shopping, Transportation Supervision at Home due to: (initially for optimal safety) Recommended Discharge Equipment: ADL Kit OT 6 Clicks Score: 19 Precautions/Activity Restrictions: Fall Risk, Lines/Tubes/Drains, Total Knee Replacement, Weight Bearing Restrictions, Bed/Chair Alarm Extremity With Weight Bearing Restricted: Left Lower Extremity Left Lower Extremity Weight Bearing Status: WBAT Current Hospital Course: s/p L TKA 12/29/22 Reason for Hospital Admission: scheduled left TKA Relevant Past Medical History: HTN, HLD, R THR, R TKR, R rotator cuff repair Response to Therapy Interventions: Good Participation in Activities, Pain, On-Track to Achieve Discharge Goals, Requires Additional Time to Complete Activities Assessment Comments: OT provided and educated patient on total knee handout, educated on use of LB ADL adaptive equipment and would benefit from additional review in the home setting; Patient reports no questions/concers for d/c home; Would benefit from Home OT to maximize safety/independence with ADLs/IADLs and functional mobility Continued Skilled Needs Due to: Functional Impairment Occupational Therapy Problem List: Pain, Impaired Self Care, Decreased Activity Tolerance, Decreased Strength, Functional Mobility Impairment, Balance Impaired Cognition/Communication Deficits Follows Commands: 3-step Commands Treatment Interventions: Education, Self Care/Home Management, Joint Mobility, Strengthening, Functional Mobility Training, Balance Training Plan for Next Visit: Bed Mobility, Chair/Commode Transfer Training, Dressing Training, Bathing Training, Grooming Training, Sit to Stand Transfers, Standing Balance, Standing Tolerance, Toileting Instruction Home Environment Patient Lives With: Self/Alone Assistance Available: PRN, Other: See Comment Comments: dtr Janeen lives nearby Entry To Home: No Stairs Number Of Stairs To Bed/Bath: 0 - single floor apartment Tub/Shower Type: walk in shower with grab bar at entrance of shower, shower chair and hand held shower Laundry: in apartment Equipment Owned: Cane, Rollator, Walker- Wheeled, Shower Chair, Grab Bars- Shower, Hand Held Shower Prior Functional Level: Within Functional Limits Prior Functional Level Comments: Per patient, indep with ADLs/IADLs, ambulated without AD, +drives, denies falls, sleeps on flat bed Baseline Cognition: Oriented to self, Oriented to place, Oriented to time, Oriented to situation Current and/or Former Occupation: (Did not report) Highest Level of Education: (Did not report) Occupational Factors Life Roles: Parent, Family Member, Friend Identified Strengths: Good Support System, Access to Healthcare, Open to Adaptive Equipment/Strategies, Effective Communication Skills Identified Barriers: Managing Pain Patient Report: Man, this is a job! RN cleared to work with, patient pleasant and agreeable to this session CURRENT FUNCTIONAL STATUS: Most recent performance Current Activities of Daily Living Assist Level Additional Information Feeding Independent Grooming Contact Guard Assistance, Additional Information standing at sink Bathing Upper Body Stand By Assistance Bathing Lower Body Minimal Assistance Dressing Upper Body Set Up Dressing Lower Body Minimal Assistance Toileting Contact Guard Assistance Instrumental Activities of Daily Living Assist Level Additional Information Meal/Beverage Prep Cleaning Laundry Medication Management with Strategies Functional Mobility Assist Level Additional Information Rolling Supine to Sit Contact Guard Assistance, Additional Information to L side, flat bed Sit to Supine Contact Guard Assistance, Additional Information L side, flat bed, educated on use of leg forensic scientist Scooting Sit to Stand Contact Guard Assistance Stand to Sit Contact Guard Assistance Bed to Chair Toilet/Commode Contact Guard Assistance Shower Functional Mobility Contact Guard Assistance Wheeled Walker (gait belt) Blank guerra indicate activity not attempted Balance: Static Sitting, Dynamic Sitting, Static Standing, Dynamic Standing Static Sitting Balance: Good Patient able to maintain balance without handhold support, limited postural sway Dynamic Sitting Balance: Good Patient accepts moderate challenge, able to maintain balance while picking up object off floor Static Standing Balance: Good Patient able to maintain balance without handhold support, limited postural sway (more content not included)... [facility] THERAPY NT HNO ID: [id number] Author: Rima Hastings, PT Service: Physical Therapy Author Type: Physical Therapist Type: Therapy (PT/OT/Speech/Resp) Filed: 12/29/2022 10:44 AM Note Text: Physical Therapy Evaluation SERVICE DATE: 12/29/2022 SERVICE TIME: 839 to 954 ROOM: [place] [address] Recommended Discharge Disposition: Home PT Recommended Discharge Disposition Comments: for increased ROM/strength and safe functional mobility in her home Anticipated Discharge Needs: Physical Assist at Home, Supervision at Home Physical Assist at Home for: (PRN assist for ADL/IADL) Supervision at Home due to: (PRN assist initially for optimal safety) Recommended Discharge Equipment: No equipment needs anticipated PT 6 Clicks Score: 20 Precautions/Activity Restrictions: Fall Risk, Lines/Tubes/Drains, Total Knee Replacement, Weight Bearing Restrictions Extremity With Weight Bearing Restricted: Left Lower Extremity Left Lower Extremity Weight Bearing Status: WBAT Current Hospital Course: s/p L TKA 12/29/22 Reason for Hospital Admission: scheduled left TKA Relevant Past Medical History: HLD, HTN Response to Therapy Interventions: Improved Tolerance for Activity, On-Track to Achieve Discharge Goals, Good Participation in Activities, Pain, Requires Additional Time to Complete Activities, Requires Encouragement to Complete Activities, Slow Progression with Functional Activities/Skills Assessment Comments: patient presents with expected limitations post L TKA with pain, decreased ROM/strength and impaired functional mobility. patient has pain with functional mobility however able to tolerate functional mobility simulating home needs. Patient is [place] however able to confirm understanding of education with teach back. Patient voices that she wants to go to rehab post discharge however educated patient on recommendation for home with Home PT and can arrange for an additional session early afternoon as needed for additional practice Continued Skilled Needs Due to: Continued Monitoring of Vital Signs During Mobility Required, Functional Mobility/Skill Impairments, Safety Concerns Physical Therapy Problem List: Pain, Safety Deficits, Impaired Self Care, Decreased Activity Tolerance, Decreased Range Of Motion, Decreased Strength, Functional Mobility Impairment, Balance Impaired Treatment Interventions: Education, Self Care / Home Management, Energy Conservation Training, Joint Mobility, Strengthening, Functional Mobility Training, Balance Training, Neuromuscular Re-education Plan for Next Visit: Bed Mobility, Fall Prevention, Gait Training, Exercise Instruction/Handout, Pre-gait Activities, Sit to Stand Transfers, Standing Balance, Sitting Balance, Standing Tolerance, Walker Training Home Environment Patient Lives With: Self/Alone Assistance Available: PRN, Other: See Comment Comments: dtr Janeen lives nearby Entry To Home: No Stairs Number Of Stairs To Bed/Bath: 0 - single floor apartment Tub/Shower Type: walk in shower with grab bar at entrance of shower, shower chair and hand held shower Laundry: in apartment Equipment Owned: Cane, Rollator, Walker- Wheeled, Shower Chair, Grab Bars- Shower, Hand Held Shower Prior Functional Level: Within Functional Limits Prior Functional Level Comments: ind with amb without device, ADL/IADL, +drive, denies falls. Had prior right TKA/JOSE JUAN and used FWW in home and rollator outside Patient Report: patient agreeable to PT and cleared by RN CURRENT FUNCTIONAL STATUS: Most recent performance Current Functional Mobility Assist Level Additional Information Rolling Supine to Sit Stand By Assistance, Additional Information HOB flat, cues for no rail use, slow to EOB. cues for technique and encouragement provided Sit to Supine Stand By Assistance, Additional Information HOB flat, no rail, slow to center of bed Scooting Stand By Assistance, Additional Information in sitting fwd to EOB and in supine lateral left to center of bed Sit to Stand Contact Guard Assistance, Additional Information from EOB x 2 trials and from chair x 1; with FWW. reinforced WBAT L LE. cues for hand placement and improved rising. increased ease with practice Stand to Sit Contact Guard Assistance, Additional Information to EOB x 2 and chair x 1; with FWW. cues for safe approach, positioning at HOB, hand placement/L LE positioning and controlled descent Bed to Chair Contact Guard Assistance, Additional Information Bed To Chair Transfer Type: Stepping Bed To Chair Transfer Equipment: Wheeled Walker CGA to SBA. reinforced safe walker negotiation /sequencing with turning, approach of sitting surface, positioning at HOB Toilet/Commode Gait Contact Guard Assistance, Additional Information Gait Device: Wheeled Walker Gait Distance (feet): 40 x 1 reinforced WBAT L LE. recommendation for FWW and education for adjusting walker height appropriately and rationale. recommendation for ingrid (more content not included)... [facility] ANES POSTPROC EVALon 023 ANES POSTPROC EVAL HNO ID: [id number] Author: Jhonny Peck MD Service: Anesthesiology Author Type: Anesthesiologist Type: Anesthesia Postprocedure Evaluation Filed: 12/28/2022 3:19 PM Note Text: POST ANESTHESIA EVALUATION NOTE : 1940 Procedure Summary Date: 12/28/22 Room / Location: MO OR / MO OR Anesthesia Start: 1055 Anesthesia Stop: 1350 Procedure: ARTHROPLASTY REPLACE JOINT TOTAL KNEE (Left: Knee) Diagnosis: Primary osteoarthritis of left knee (Primary osteoarthritis of left knee [M17.12]) Surgeons: Brennan Monsivais MD Responsible Provider: Batsheva Proctor MD Anesthesia Type: spinal, regional ASA Status: 2 Anesthesia Type: spinal, regional Last Vitals Vitals Value Taken Time BP 124/58 12/28/22 1455 Temp 36.4 ?C (97.5 ?F) 12/28/22 1455 HR SpO2 67 12/28/22 1348 Resp 16 12/28/22 1455 SpO2 100 % 12/28/22 1455 Post Anesthesia Patient Status Patient Evaluation: bedside. Anticipated Disposition: inpatient floor planned admission. Neurological Status: aware and responsive. Pulmonary Status: breathing comfortably on room air Airway Control: returned to baseline unsupported. Cardiovascular Status: stable. Pain Management: clinically adequate Postoperative Hydration: acceptable. Intraoperative Events: no significant anesthesia events Post Operative Nausea/Vomiting Status: no significant post operative nausea or vomiting Recommendation: continue current plan of care. Anesthesia Observations No Documentation SIGNATURE: Jhonny Peck MD PATIENT NAME: Radha Glover DATE: December 28, 2022 TIME: 3:19 PM CSN: [id number] [facility] ANES PRE-OPon 12-28-2022 ANES PRE-OP HNO ID: [id number] Author: Batsheva Proctor MD Service: Anesthesiology Author Type: Anesthesiologist Type: Anesthesia Preprocedure Evaluation Filed: 12/28/2022 10:55 AM Note Text: ANESTHESIOLOGY DAY OF SURGERY NOTE : 1940 Procedure Information Date/Time: 12/28/22 1155 Procedure: ARTHROPLASTY REPLACE JOINT TOTAL KNEE (Left: Knee) Location: MO OR / MO OR Surgeons: Brennan Monsivais MD Estimated body mass index is 30.11 kg/m? as calculated from the following: Height as of 12/11/22: 160 cm (5' 3). Weight as of 12/11/22: 77.1 kg (170 lb). Most recent hematocrit and potassium results: Hematocrit 39.0 12/11/2022 Potassium 4.4 12/11/2022 Relevant Problems CARDIO (+) Essential hypertension, benign (+) Murmur GI (+) GERD (gastroesophageal reflux disease) I - PHYSICAL EVALUATION AIRWAY Patient intubated: No. Tracheostomy tube not present Mallampati: II. TM distance: >3 FB. Neck ROM: full ROM without neurological symptoms. Mouth opening: adequate. Short neck: no. Thick neck: no DENTAL Normal dental observations. Dental findings: teeth intact. II - ANESTHESIA PLAN ASA Score: 2 Anesthetic Plan: spinal and regional The patient is not a current smoker. NPO Status: adequate Anesthetic plan additional comments: (pre op adductor canal block) + MAC Sedation Discussion w patient - not periprocedural full code No CPR no defibrillation . Discussed w Surgeon . Beta Mychal Monitoring Plan Monitoring plan: Standard ASA. Post Procedure Analgesic Plan Postoperative analgesic plan: parenteral or oral opioids, multimodal analgesia and peripheral nerve block. Informed Consent Anesthetic risks, benefits, alternatives, personnel and consent discussed: yes. Patient / Responsible Republican agrees to proceed: yes Patient / Surrogate agrees to blood products: yes DNR status not reviewed with patient and/or family prior to surgery. Significant changes in the patient condition since the History and Physical, not otherwise documented in primary service progress note: no. Potential Anesthesia issues that may suggest increased risk of complications or contraindication to planned procedure: none. Vitals Value Taken Time BP 144/66 12/28/22 0948 Pulse Resp 16 12/28/22 0948 Temp 36.1 ?C (97 ?F) 12/28/22 0948 SpO2 100 % 12/28/22 0948 Facility-Administered Medications as of 12/28/2022 Medication Dose Route Frequency - lidocaine (PF) 10 mg/mL (1 %) 1-2 mg injection (XYLOCAINE) 0.1-0.2 mL INTRADERMAL PRN - lactated ringers iv infusion 5-30 mL/hr INTRAVENOUS CONTINUOUS - NaCl 0.9% iv flush bag 20 mL INTRAVENOUS PRN - ceFAZolin iv piggyback 2 g in D5W (iso-osmotic) 100 mL (ANCEF) 2 g INTRAVENOUS Pre-Op Once - tranexamic acid 1,000 mg in NaCl 0.9% 100 mL (CYKLOKAPRON) 1,000 mg INTRAVENOUS Pre-Op Once - tranexamic acid 1,000 mg in NaCl 0.9% 100 mL (CYKLOKAPRON) 1,000 mg INTRAVENOUS ONCE - acetaminophen 650 mg tab(s) (TYLENOL) 650 mg ORAL Pre-Op Once - scopolamine 1 mg over 3 days 1 Patch (TRANSDERM-SCOP) 1 Patch TRANSDERMAL Pre-Op Once - celecoxib 200 mg cap(s) (CeleBREX) 200 mg ORAL Pre-Op Once Outpatient Medications as of 12/28/2022 Medication Sig - amLODIPine (NORVASC) 5 mg tablet Take 5 mg by mouth once daily. - VITAMIN E ORAL Take by mouth once daily. - CALCIUM CARBONATE (CALCIUM 300 ORAL) Take by mouth. - OMEGA-3 FATTY ACIDS (OMEGA 3 ORAL) Take by mouth. - multivitamin ORAL tablet Take 1 tablet by mouth once daily. I have interviewed and examined the patient. I have reviewed the medical record and/or the pre-anesthesia evaluation, pertinent labs, and test results. This contains updated information obtained within 48 hours of Surgery/Procedure. SIGNATURE: Batsheva Proctor MD PATIENT NAME: Radha Glover DATE: December 28, 2022 TIME: 9:52 AM CSN: [id number] [facility] 12-28-2022 [facility] HNO ID: [id number] Author: Stephen Hughes PA-C Service: Orthopaedic Surgery Author Type: Physician Nitrocellulose Maker Type: Discharge Summary Filed: 12/29/2022 10:00 AM Note Text: Attestation signed by Brennan Monsivais MD at 12/30/2022 11:03 AM I agree with the above discharge summary. Reviewed, authenticated, and electronically signed by Brennan Monsivais MD DISCHARGE SUMMARY PATIENT NAME: Radha Glover ADMISSION DATE: 12/28/2022 DISCHARGE DATE: 12/29/2022 PATIENT DISCHARGE SUMMARY C O N F I D E N T I A L I N F O R M A T I O N The following is a brief overview of your hospitalization. Some of the information contained on this summary may be confidential. This information should be kept in your records and should be shared with your regular doctor. These instructions explain what you or your caregiver assisted living need to do to continue your care at home or at another healthcare facility Please go over these instructions with your nurse and caregiver assisted living. If you are not sure about something, please ask. Highest Readmission Risk Score: 7 The 30 day readmissions risk score is derived from an internally validated risk model which evaluates patient level characteristics, utilization history, medication orders and lab results up until the day of discharge. Patients with a score of 40 or above are considered highest risk for readmission. Specific patient level drivers will be listed at the bottom of the summary. The 30 day readmissions risk score is derived from an internally validated risk model which evaluates patient level characteristics, utilization history, medication orders and lab results up until the day of discharge. Patients with a score of 40 or above are considered highest risk for readmission. Where I Will be Going after Discharge: Home with Home Health My Condition at Discharge: Stable PRINCIPAL DIAGNOSIS: (Reason after study for this admission): Procedure(s): ARTHROPLASTY REPLACE JOINT TOTAL KNEE OTHER DIAGNOSES: Patient Active Hospital Problem List: No active hospital problems. OPERATIONS PERFORMED: Procedure(s): ARTHROPLASTY REPLACE JOINT TOTAL KNEE My Doctors and Medical Team: My Main Hospital Doctor: Doctor Brennan Monsivais MD PHYSICAL EXAM: See daily progress note Vitals: BP (!) 153/49 Pulse (!) 59 Temp 36.6 ?C (97.9 ?F) (Oral) Resp 16 SpO2 98% SUMMARY OF WHAT HAPPENED WHILE PATIENT WAS IN THE HOSPITAL: The patient was followed in the office by Dr. Monsivais for left knee osteoarthritis. It was determined the patient would benefit from left total knee arthroplasty. The procedure, its risks, benefits, and potential complications were discussed in detail prior to surgery. The patient conveyed understanding of all topics and consented to surgery. The patient was admitted to the hospital. Underwent an elective left total knee arthroplasty on 12/28/[address] Monsivais. The patient tolerated the procedure well and was returned to the Post Anesthesia Care Unit in stable condition. Vital signs per PACU protocol. VTE risk assessment performed. O2 therapy monitored by Respiratory Therapy to include incentive spirometry, ADL, wound and support per physician order set postop protocol. PT and OT to evaluate and treat. IV antibiotics, antiemetics, aspirin for DVT prophylaxis and pain medication were given. The patient progressed with physical therapy. Lab values and vital signs were monitored and remained stable. The incision remained clean, dry and intact. Thigh and calf are not swollen. No signs of DVT or infection. The patient progressed with physical therapy towards goal of safety and independence. Patient was determined safe for discharge to home with home health care on 12/29/2022. TREATMENT / WOUND CARE: If you have any concerns about your wound, please contact the office. Keep wound and incision area clean and dry. You may remove your dressing on POD #7-10 (7 to 10 days after surgery). If it remains drainage-free, you may leave the dressing off, keeping the wound open to air. If there is any drainage please contact the office You may not submerge the wound under standing water for 6 weeks time after surgery (i.e. no baths, no hot tubs, no swimming pools). Do not rub the wound, but rather pat dry. If you have non-absorbable sutures in place, these will be taken out on your 1st follow-up appointment. Observe the wound for signs of infection, including increased redness, swelling, or persistent drainage around the incision site. It is normal for your wound to be warmer immediately after surgery (even up to 4-6 weeks after surgery). If you begin to experience fevers, ch (more content not included)... Normal [facility] CONSULTon 12-28-2022 CONSULT HNO ID: [id number] Author: González Younger MD Service: General Internal Medicine Author Type: Physician Type: Consults Filed: 12/29/2022 8:06 PM Note Text: [facility]- Consultation RADHA GLOVER : 1940 AGE: 82 SEX: F ACCTNUM: [id number] [facility]: [facility] LOCATION: [facility] ATTENDING PHYSICIAN: BRENNAN MONSIVAIS DATE OF SERVICE: 12/28/2022 TIME OF SERVICE: 05:00 PM HISTORY: This is an 82-year-old white female, whose significant medical history includes osteoarthritis, hypertension, and hyperlipidemia, currently not on medication; GERD, she takes OTC medicine on as needed basis. Patient underwent elective total left total knee arthroplasty. Patient had uneventful intraoperative course. Estimated blood loss 50 mL. During initial evaluation, patient is alert and oriented. No nausea, vomiting, lightheadedness, dizziness. She continued to have numbness of the lower extremities. PAST MEDICAL HISTORY: As mentioned above. PAST SURGICAL HISTORY: History of right knee replacement and right hip replacement. She also has a history of abdominal hysterectomy. SOCIAL HISTORY: She does not smoke and drink. MEDICATIONS: Her current home medication list reviewed. FAMILY HISTORY: Not significant. ALLERGIES: She is allergic to codeine, caused GI upset. Tramadol, intolerance. Clarithromycin, headache. Hydrocodone, GI upset. REVIEW OF SYSTEMS: HEENT/Neck: No history of glaucoma, TIA, CVA, seizure disorder. No history of dysphagia or odynophagia. No history of chronic cough, wheezing, or dyspnea with exertion. No history of asthma, COPD, obstructive sleep apnea. No history of recent pulmonary infection. No history of coronary artery disease, congestive heart failure, or cardiac arrhythmia. History of hypertension. No history of bleeding, peptic ulcer disease, hepatitis, colitis. Good appetite. Regular bowel movement. Occasionally heart burn. She takes OTC medicine. No melenic stool. No history of recent urinary tract infection. No CKD or renal calculi. No history of diabetes, hypothyroidism. No history of DVTs, paresthesia of feet, or bleeding diathesis. PHYSICAL EXAM: General: Elderly white female. She is alert and oriented. HEENT/Neck: Sclerae anicteric. Oral mucosa dry. No thyromegaly appreciated. No carotid bruit heard. No lymphadenopathy of the neck. Lungs: Clear to auscultation bilaterally. Cardiovascular: S1, S2. Regular rhythm. No murmur, gallop, or rub present. Abdomen: Soft, nontender, nondistended. No mass felt. Lower Extremities: No ankle edema noted. IMPRESSION: 1. Osteoarthritis, status post left total knee arthroplasty. Deep venous thrombosis prophylaxis as ordered by Dr. Monsivais. 2. Hypertension. Continue Norvasc. 3. Hyperlipidemia. Currently not on medication. 4. Hold other medication. 5. Discussed with Dr. Monsivais and daughter. González Younger M.D. Internal Medicine SKJ:[id number] [facility] NURSING PROGon 12-28-2022 NURSING PROG HNO ID: [id number] Author: Anastasiia Coreas RN Service: ? Author Type: Registered Nurse Type: Nursing Progress Note Filed: 12/28/2022 10:50 AM Note Text: 1015 in pacu for preop nerve block monitor nsr 1020 informed consent for right knee signed or is scheduled for left knee Dr monsivais in or and updated ok to do preop nerve block no versed to be given 1028 left adductor canal nerve block done preop by dr proctor and [facility] skin prep done by dr proctor 1032 block completed 1036 informed consent signed for left knee replacement [facility] OPERATIVE NOon 12-28-2022 OPERATIVE NO HNO ID: [id number] Author: Brennan Monsivais MD Service: Orthopaedic Surgery Author Type: Physician Type: Operative Report Filed: 12/28/2022 1:19 PM Note Text: Operative Report PATIENT NAME: Radha Glover CSN: [id number] LOG ID: [id number] Surgery Date: 12/28/2022 Surgeon(s) and Nitrocellulose Maker(s): Dheeraj aLnda CREPE BOX TENDER - [place] Surgeon(s) and Role: * Brennan Monsivais MD - Primary * Dangelo Jorge MD - Resident - Assisting 22 modifier--none BMI: Estimated body mass index is 30.11 kg/m? as calculated from the following: Height as of 12/11/22: 160 cm (5' 3). Weight as of 12/11/22: 77.1 kg (170 lb). Procedure(s): Procedure(s) (LRB): ARTHROPLASTY REPLACE JOINT TOTAL KNEE (Left) Anesthesia: Spinal Incision Start: 11:42 AM Incision Stop: Approx 130 pm Attestation: I was present for and performed all critical portions of the case. human resources assistant manager was necessary for safe patient positioning, sterile prepping and draping, assistance, positioning and protection, soft tissue retraction, protection of vital structures and suture management during the case, and superficial wound closure. Also critical for safe transit to the recovery room in stable condition. 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 Non-operative treatment has been attempted but has not improved or controlled the symptoms and pain that occurs during normal daily activities. Knee motion has also become limited and is restricting the patient. Total knee arthroplasty was recommended. The risks, benefits and potential complications of the arthroplasty surgery were discussed with the patient in detail. Specific details of the surgical procedure, hospitalization, recovery, rehabilitation, and long-term precautions were also presented. Pre-operative teaching was provided. Implant/prosthesis selection was outlined, and the many options available were explained; the final choice will be made at the time of the procedure to match the anatomy and condition of the bone, ligaments, tendons, and muscles. The patient was evaluated medically for pre-operative optimization, and risk assessment. Faina-operative blood management and the potential for blood transfusion were discussed with risks and options clearly outlined. Understanding of all topics was conveyed to me by the patient pre-operatively, and patient consent was given to proceed with the left total knee replacement. OPERATIVE PROCEDURE: The patient was identified and brought into the Operating Room by the anesthesia and nursing teams. Anesthesia was successfully performed. The patient was then positioned supine on the operating room table, and all bony prominences were padded. Intravenous antibiotic prophylaxis dosing was confirmed. A tourniquet was applied to the upper thigh. A full knee exam was done after anesthesia was in full effect. The patient had developed a varus deformity in the knee from cartilage wear and bone loss. Flexion contracture was moderate. Pre-operative flexion was to 115 in the OR. The leg was prepped and draped in the usual sterile fashion. A surgical time-out was performed immediately preceding the incision with all personnel in the operating room; the patient identity was again confirmed, the correct knee surgical site and extremity were identified and confirmed, X-rays were reviewed, and availability of the appropriate surgical equipment was established. The knee was exsanguinated and exposed using an anterior-midline skin incision. Dissection was carried down through skin and subcutaneous tissue to the extensor mechanism with a scalpel. The superficial scalpel was exchanged for a deep scalpel. Medial and lateral flaps were raised to facilitate adequate exposure. A median para-patellar arthrotomy was made to enter the knee space sharply. A large amount of normal appearing joint fluid was encountered and suctioned. The synovium was thickened, hypertrophic, and inflamed. The anterolateral tibia was exposed with bovie while protecting the patellar tendon, The patellofemoral ligaments were released and the patella everted. An anterior sail of synovium was removed from the femur to allow easier later sizing. Partial fat pad removal was performe (more content not included)... Normal [facility] ECHOon 12-22-2022 Echocardiography Echocardiography Rep ort: Transthoracic Echo [facility] Date of service: 12/22/2022 9:42:43 AM MERCHANDISING SPECIALIST Ordering physician: KRISTINE MASON Indication: Pre op clearance Technologist: Brenda Elias [facility] Interpreting physician: Anderson Luis DO PATIENT: Name: RADHA GLOVER : 1940 Age: 82 years Gender: F History of hypertension. Primary rhythm: sinus. Height: 160.00 cm BSA: 1.85 m Weight: 77.11 kg BMI: 30.1 kg/m Heart rate 75 bpm Color Doppler was utilized to interrogate the cardiac valves assessed and spectral Doppler was utilized to determine the flow velocities and pressure gradients reported in this exam. Myocardial strain analysis was performed in this exam to aid in the assessment of cardiac function. MEASUREMENTS: Value Indexed Normal Max aortic dimension 2.5 cm Ao < 3.8 Left atrial volume 62 ml (biplane A-L) 34 ml/m Jan <= 34 LV ID (diastole) 3.8 cm (2D) 2.06 cm/m LV ID (systole) 2.6 cm (2D) 1.41 cm/m IVS, leaflet tips 1.1 cm (2D) Posterior wall thickness 1.0 cm (2D) Left ventricular mass 129 g (2D) 69 g/m Global peak long strain -19.0 % LV stroke volume 29 ml (2D biplane) LVOT stroke volume 65 ml 36 ml/m LV end diastolic volume 44 ml (2D biplane) 23.8 ml/m 29<=EDVi<62 LV end systolic volume 15 ml (2D biplane) 8.2 ml/m Ejection Fraction 65 % (2D biplane) EF > 54 FINDINGS: LEFT VENTRICLE The left ventricle is small. Left ventricular systolic function is normal. Global LV myocardial strain is normal. Grade I left ventricular diastolic dysfunction. Mitral annular lateral E/e': 9.6. Mitral annular septal E/e': 13.2. Wall Motion: All scored segments are normal. RIGHT VENTRICLE The right ventricle is normal in size. Right ventricular systolic function is normal. RV systolic tissue Doppler velocity is 12.0 cm/s. Tricuspid annular displacement is 1.8 cm. Estimated right ventricular systolic pressure is 49 mmHg consistent with mild pulmonary hypertension. Estimated right atrial pressure is 3 mmHg (although IVC not seen). LEFT ATRIUM The left atrial cavity is normal in size. RIGHT ATRIUM The right atrial cavity is normal in size. MITRAL VALVE There is mild mitral annular calcification observed posterior. There is trace (trace - 1+) mitral valve regurgitation. The pressure half time is 68 msec. The peak mitral E/A ratio is 0.83. The average mitral E/e' ratio is 11.4. The mitral flow deceleration time is 234 msec. TRICUSPID VALVE The tricuspid valve leaflets are structurally normal. There is mild (1+) tricuspid valve regurgitation. AORTIC VALVE There is mild (1+ - 2+) aortic valve regurgitation. Tricuspid aortic valve. There is mild thickening. There is mild calcification. The peak gradient is 18 mmHg (peak velocity = 211.6 cm/s). The mean gradient is 11 mmHg. The LVOT mean velocity is 73.0 cm/s. The LVOT diameter is 2.0 cm. The aortic VTI is 44.8 cm. The mean velocity in the aortic valve is 158.1 cm/s. The dimensionless valve index is 0.48. AV area is 1.45 cm (0.78 cm /m ) by continuity, VTI. The LVOT stroke volume index is 36 ml/m . PULMONIC VALVE The pulmonic valve cusps are structurally normal. There is trace pulmonic valve regurgitation. AORTA The visualized aorta is normal in size. Measurements - Mid ascending aorta 2.5 cm. PERICARDIUM There is no pericardial effusion. There is an epicardial fat pad. CONCLUSIONS: - Exam indication: Pre op clearance - The left ventricle is small. Left ventricular systolic function is normal. EF = 65 5% (2D biplane) Grade I left ventricular diastolic dysfunction. - The right ventricle is normal in size. Right ventricular systolic function is normal. - Aortic valve sclerosis with mild (1-2+) aortic valve regurgitation. - The patient has not had a prior CC echocardiographic exam for comparison. * * * Final * * * [facility] [employer] : [id number] [employer] Normal [facility] CBC W Auto Differential pane l (Bld)on 12-11-2022 Basophils (Bld) [#/Vol] 10*3/uL Normal <0.11 [facility] Comment on above: Order Comment: Speci men Type: BLOOD SPECIMENOrdering Facility: [facility] Address: [address] [place] [address] Performed By: #### 5 7021-8 ####[facility] MILLWNCLIA [id number] [place] [address] [place] Basophils/100 WBC (Bld) 0.4 % Normal [facility] Comment on above: Order Comment: Speci men Type: BLOOD SPECIMENOrdering Facility: [facility] Address: [address] [place] [address] Performed By: #### 5 7021-8 ####[facility] [id number] [place] [address] [place] Differential cell count method Nom (Bld) Auto Normal [facility] Comment on above: Order Comment: Speci men Type: BLOOD SPECIMENOrdering Facility: [facility] Address: [address] [place] [address] Performed By: #### 5 7021-8 ####[facility] HOSPITALLIA [id number] [place] [address] [place] Eosinophils (Bld) [#/Vol] 0.16 10*3/uL Normal <0.46 [facility] Comment on above: Order Comment: Speci men Type: BLOOD SPECIMENOrdering Facility: [facility] Address: [address] [place] [address] Performed By: #### 5 7021-8 ####[facility] CLAY COUNTYA [id number] [place] [address] [place] Eosinophils/100 WBC (Bld) 2.9 % Normal [facility] Comment on above: Order Comment: Speci men Type: BLOOD SPECIMENOrdering Facility: [facility] Address: [address] [address] Performed By: #### 5 7021-8 ####[facility] KARENALAMOROXANELIA [id number] [place] [address] [place] Erythrocyte distribution width (RBC) [Ratio] 12.6 % Normal 11.5-15.0 [facility] Comment on above: Order Comment: Speci men Type: BLOOD SPECIMENOrdering Facility: [facility] Address: [address] [address] Performed By: #### 5 7021-8 ####[facility] CLAY COUNTYA [id number] [place] [address] [place] Hematocrit (Bld) [Volume fraction] 39.0 % Normal 36.0-46.0 [facility] Comment on above: Order Comment: Speci men Type: BLOOD SPECIMENOrdering Facility: [facility] Address: [address] [address] Performed By: #### 5 7021-8 ####[facility] [id number] [place] [address] [place] Hemoglobin (Bld) [Mass/Vol] 12.9 g/dL Normal 11.5-15.5 [facility] Comment on above: Order Comment: Speci men Type: BLOOD SPECIMENOrdering Facility: [facility] Address: [address] Performed By: #### 5 7021-8 ####[facility] HOSPITALLIA [id number] [place] [address] [place] Immature granulocytes (Bld) [#/Vol] 10*3/uL Normal <0.10 [facility] Comment on above: Order Comment: Speci men Type: BLOOD SPECIMENOrdering Facility: [facility] Address: [address] [address] Performed By: #### 5 7021-8 ####[facility] ERROXANELIAgustin [id number] [place] [address] [place] Immature granulocytes/100 WBC (Bld) 0.2 % Normal [facility] Comment on above: Order Comment: Speci men Type: BLOOD SPECIMENOrdering Facility: [facility] Address: [address] [place] [address] Performed By: #### 5 7021-8 ####[facility] [id number] [place] [address] [place] Lymphocytes (Bld) [#/Vol] 1.84 10*3/uL Normal 1.00-4.00 [facility] Comment on above: Order Comment: Speci men Type: BLOOD SPECIMENOrdering Facility: [facility] Address: [address] [place] [address] Performed By: #### 5 7021-8 ####[facility] [id number] [place] [address] [place] Lymphocytes/100 WBC (Bld) 33.5 % Normal [facility] Comment on above: Order Comment: Speci men Type: BLOOD SPECIMENOrdering Facility: [facility] Address: [address] [place] [address] Performed By: #### 5 7021-8 ####[facility] HOSPITALBETHELA [id number] [place] [address] [place] MCH (RBC) [Entitic mass] 30.6 pg Normal 26.0-34.0 [facility] Comment on above: Order Comment: Speci men Type: BLOOD SPECIMENOrdering Facility: [facility] Address: [address] [place] [address] Performed By: #### 5 7021-8 ####[facility] ERNCLIA [id number] [place] [address] [place] MCHC (RBC) [Mass/Vol] 33.1 g/dL Normal 30.5-36.0 [facility] Comment on above: Order Comment: Speci men Type: BLOOD SPECIMENOrdering Facility: [facility] Address: [address] [place] [address] Performed By: #### 5 7021-8 ####[facility] [id number] [place] [address] [place] MCV (RBC) [Entitic vol] 92.6 fL Normal 80.0-100.0 [facility] Comment on above: Order Comment: Speci men Type: BLOOD SPECIMENOrdering Facility: [facility] Address: [address] [place] [address] Performed By: #### 5 7021-8 ####[facility] ERNCCED[facility] [id number] [place] [address] [place] Monocytes (Bld) [#/Vol] 0.49 10*3/uL Normal <0.87 [facility] Comment on above: Order Comment: Speci men Type: BLOOD SPECIMENOrdering Facility: [facility] Address: [address] [place] [address] Performed By: #### 5 7021-8 ####[facility] [id number] [place] [address] [place] Monocytes/100 WBC (Bld) 8.9 % Normal [facility] Comment on above: Order Comment: Speci men Type: BLOOD SPECIMENOrdering Facility: [facility] Address: [address] [place] [address] Performed By: #### 5 7021-8 ####[facility] [id number] [place] [address] [place] Neutrophils (Bld) [#/Vol] 2.98 10*3/uL Normal 1.45-7.50 [facility] Comment on above: Order Comment: Speci men Type: BLOOD SPECIMENOrdering Facility: [facility] Address: [address] [address] Performed By: #### 5 7021-8 ####[facility] KARENALEKSANDAR [id number] [place] [address] [place] Neutrophils/100 WBC (Bld) 54.1 % Normal [facility] Comment on above: Order Comment: Speci men Type: BLOOD SPECIMENOrdering Facility: [facility] Address: [address] [place] [address] Performed By: #### 5 7021-8 ####[facility] ERNCCED[facility] [id number] [place] [address] [place] Nucleated RBC (Bld) [#/Vol] 10*3/uL Normal <0.01 [facility] Comment on above: Order Comment: Speci men Type: BLOOD SPECIMENOrdering Facility: [facility] Address: [address] [place] [address] Performed By: #### 5 7021-8 ####[facility] ERNCLIA [id number] [place] [address] [place] Nucleated RBC/100 WBC (Bld) [Ratio] 0.0 /100 WBC Normal [facility] Comment on above: Order Comment: Speci men Type: BLOOD SPECIMENOrdering Facility: [facility] Address: [address] [place] [address] Performed By: #### 5 7021-8 ####[facility] ERNCLIA [id number] [place] [address] [place] Platelet mean volume (Bld) [Entitic vol] 10.2 fL Normal 9.0-12.7 [facility] Comment on above: Order Comment: Speci men Type: BLOOD SPECIMENOrdering Facility: [facility] Address: [address] [place] [address] Performed By: #### 5 7021-8 ####[facility] ERNCLIA [id number] [place] [address] [place] Platelets (Bld) [#/Vol] 252 10*3/uL Normal 150-400 [facility] Comment on above: Order Comment: Speci men Type: BLOOD SPECIMENOrdering Facility: [facility] Address: [address] [place] [address] Performed By: #### 5 7021-8 ####[facility] ERNCLIA [id number] [place] [address] [place] RBC (Bld) [#/Vol] 4.21 10*6/uL Normal 3.90-5.20 [facility] Comment on above: Order Comment: Speci men Type: BLOOD SPECIMENOrdering Facility: [facility] Address: [address] [place] [address] Performed By: #### 5 7021-8 ####[facility]OS[facility]ITALLIA [id number] [place] [address] [place] WBC (Bld) [#/Vol] 5.50 10*3/uL Normal 3.70-11.00 [facility] Comment on above: Order Comment: Speci men Type: BLOOD SPECIMENOrdering Facility: [facility] Address: [address] [place] [address] Performed By: #### 5 7021-8 ####[facility] ERNCLIA [id number] [place] [address] [place] Basophils (Bld) [#/Vol] <0.11 k/uL [facility] Basophils/100 WBC (Bld) 0.4 % [facility] Differential cell count method Nom (Bld) Auto [facility] Eosinophils (Bld) [#/Vol] 0.16 10*3/uL <0.46 k/uL [facility] Eosinophils/100 WBC (Bld) 2.9 % [facility] Erythrocyte distribution width (RBC) [Ratio] 12.6 % 11.5 - 15.0 % [facility] Hematocrit (Bld) [Volume fraction] 39.0 % 36.0 - 46.0 % [facility] Hemoglobin (Bld) [Mass/Vol] 12.9 g/dL 11.5 - 15.5 g/dL [facility] Immature granulocytes (Bld) [#/Vol] <0.10 k/uL [facility] Immature granulocytes/100 WBC (Bld) 0.2 % [facility] Lymphocytes (Bld) [#/Vol] 1.84 10*3/uL 1.00 - 4.00 k/uL [facility] Lymphocytes/100 WBC (Bld) 33.5 % [facility] MCH (RBC) [Entitic mass] 30.6 pg 26.0 - 34.0 pg [facility] MCHC (RBC) [Mass/Vol] 33.1 g/dL 30.5 - 36.0 g/dL [facility] MCV (RBC) [Entitic vol] 92.6 fL 80.0 - 100.0 fL [facility] Monocytes (Bld) [#/Vol] 0.49 10*3/uL <0.87 k/uL [facility] Monocytes/100 WBC (Bld) 8.9 % [facility] Neutrophils (Bld) [#/Vol] 2.98 10*3/uL 1.45 - 7.50 k/uL [facility] Neutrophils/100 WBC (Bld) 54.1 % [facility] Nucleated RBC (Bld) [#/Vol] <0.01 k/uL [facility] Nucleated RBC/100 WBC (Bld) [Ratio] 0.0 /100 WBC [facility] Platelet mean volume (Bld) [Entitic vol] 10.2 fL 9.0 - 12.7 fL [facility] Platelets (Bld) [#/Vol] 252 10*3/uL 150 - 400 k/uL [facility] RBC (Bld) [#/Vol] 4.21 10*6/uL 3.90 - 5.2 0 m/uL [facility] WBC (Bld) [#/Vol] 5.50 10*3/uL 3.70 - 11. 00 k/uL [facility] Comprehensive metabolic 2000 panelon 12-11-2022 Albumin [Mass/Vol] 4.2 g/dL Normal 3.9-4.[address] [facility] Comment on above: Order Comment: Speci men Type: BLOOD SPECIMENOrdering Facility: [facility] Address: [address] [place] [address] Performed By: #### 2 4323-8 ####[facility]ITALWNCLIA [id number] [place] [address] [place] ALP [Catalytic activity/Vol] 115 U/L Normal 34-123 [facility] Comment on above: Order Comment: Speci men Type: BLOOD SPECIMENOrdering Facility: [facility] Address: [address] [place] [address] Performed By: #### 2 4323-8 ####[facility]PITALWNCLIA [id number] [place] [address] [place] ALT [Catalytic activity/Vol] 12 U/L Normal 7-38 [facility] Comment on above: Order Comment: Speci men Type: BLOOD SPECIMENOrdering Facility: [facility] Address: [address] [place] [address] Performed By: #### 2 4323-8 ####[facility] HOSPITALLIA [id number] [place] [address] [place] Anion gap [Moles/Vol] 7 mmol/L Low 9-18 [facility] Comment on above: Order Comment: Speci men Type: BLOOD SPECIMENOrdering Facility: [facility] Address: [address] [place] [address] Performed By: #### 2 4323-8 ####[facility]PITALWNCLIA [id number] [place] [address] [place] AST [Catalytic activity/Vol] 18 U/L Normal 13-35 [facility] Comment on above: Order Comment: Speci men Type: BLOOD SPECIMENOrdering Facility: [facility] Address: [address] [place] [address] Performed By: #### 2 4323-8 ####[facility] CHANCE MILLTOWNCLIA [id number] [place] [address] [place] Bilirubin [Mass/Vol] 0.2 mg/dL Normal 0.2-1.3 [facility] Comment on above: Order Comment: Speci men Type: BLOOD SPECIMENOrdering Facility: [facility] Address: [address] [place] [address] Performed By: #### 2 4323-8 ####[facility] HOSPITALWROXANELIA [id number] [place] [address] [place] Calcium [Mass/Vol] 9.6 mg/dL Normal 8.5-10.[address] [facility] Comment on above: Order Comment: Speci men Type: BLOOD SPECIMENOrdering Facility: [facility] Address: [address] [place] [address] Performed By: #### 2 4323-8 ####[facility] ERROXANELIA [id number] [place] [address] [place] Chloride [Moles/Vol] 103 mmol/L Normal 97-105 [facility] Comment on above: Order Comment: Speci men Type: BLOOD SPECIMENOrdering Facility: [facility] Address: [address] [place] [address] Performed By: #### 2 4323-8 ####[facility] MILLTOWNCLIA [id number] [place] [address] [place] CO2 [Moles/Vol] 28 mmol/L Normal 22-30 [facility] Comment on above: Order Comment: Speci men Type: BLOOD SPECIMENOrdering Facility: [facility] Address: [address] Performed By: #### 2 4323-8 ####[facility] MILLWNCLIA [id number] [place] [address] [place] Creatinine [Mass/Vol] 1.15 mg/dL High 0.58-0.96 [facility] Comment on above: Order Comment: Yanely mendoza Type: BLOOD SPECIMENOrdering Facility: [facility] Address: [address] [place] [address] Performed By: #### 2 4323-8 ####[facility] [id number] [place] [address] [place] ESTIMATED GLOMERULAR FILTRATION RATE 47 mL/min/1.73m??? Low >=60 [facility] Comment on above: Order Comment: Yanely mendoza Type: BLOOD SPECIMENOrdering Facility: [facility] Address: [address] [place] [address] Result Comment: Eliana mated Glomerular Filtration Rate (eGFR) is calculated using the 2020 CKD-EPI creatinine equation. This equation utilizes serum creatinine, sex, and age as parameters. The creatinine assay has traceable calibration to isotope dilution-mass spectrometry. Refer to KDIGO guidelines for clinical interpretation. In patients with unstable renal function, e.g. those with acute kidney injury, the eGFR may not accurately reflect actual GFR. Performed By: #### 2 4323-8 ####[facility] [id number] [place] [address] [place] Glucose [Mass/Vol] 115 mg/dL High 74-[address] [facility] Comment on above: Order Comment: Yanely mendoza Type: BLOOD SPECIMENOrdering Facility: [facility] Address: [address] [place] [address] Result Comment: The [place] [employer] (ADA) provides guidance for cutoff values for fasting glucose and random glucose. The ADA defines fasting as no caloric intake for at least 8 hours. Fasting plasma glucose results between 100 to 125 mg/dL indicate increased risk for diabetes (prediabetes). Fasting plasma glucose results greater than or equal to 126 mg/dL meet the criteria for diagnosis of diabetes. In the absence of unequivocal hyperglycemia, results should be confirmed by repeat testing. In a patient with classic symptoms of hyperglycemia or hyperglycemic crisis, random plasma glucose results greater than or equal to 200 mg/dL meet the criteria for diagnosis of diabetes. Reference: Standards of Medical Care in Diabetes 2016, [place] [employer]. Diabetes Care. 2016.39(Suppl 1). Performed By: #### 2 4323-8 ####[facility] CHANCENITIN JONESESTHER [id number] [place] [address] [place] Potassium [Moles/Vol] 4.4 mmol/L Normal 3.7-5.1 [facility] Comment on above: Order Comment: Speci men Type: BLOOD SPECIMENOrdering Facility: [facility] Address: [address] [address] Performed By: #### 2 4323-8 ####[facility] HOSPITALALEKSANDAR [id number] [place] [address] [place] Protein [Mass/Vol] 6.9 g/dL Normal 6.3-8.[address] [facility] Comment on above: Order Comment: Speci men Type: BLOOD SPECIMENOrdering Facility: [facility] Address: [address] [address] Performed By: #### 2 4323-8 ####[facility] ERGAMALIEL [id number] [place] [address] [place] Sodium [Moles/Vol] 138 mmol/L Normal 136-[address] [facility] Comment on above: Order Comment: Speci men Type: BLOOD SPECIMENOrdering Facility: [facility] Address: [address] [address] Performed By: #### 2 4323-8 ####[facility] ERNCLIA [id number] [place] [address] [place] Urea nitrogen [Mass/Vol] 23 mg/dL High 7-21 [facility] Comment on above: Order Comment: Speci men Type: BLOOD SPECIMENOrdering Facility: [facility] Address: [address] [address] Performed By: #### 2 4323-8 ####[facility] [id number] [place] [address] [place] Albumin [Mass/Vol] 4.2 g/dL 3.9 - 4.9 g/dL [facility] ALP [Catalytic activity/Vol] 115 U/L 34 - 123 U/L [facility] ALT [Catalytic activity/Vol] 12 U/L 7 - 38 U/L [facility] Anion gap [Moles/Vol] 7 mmol/L Low 9 - 18 mmol/L [facility] AST [Catalytic activity/Vol] 18 U/L 13 - 35 U/L [facility] Bilirubin [Mass/Vol] 0.2 mg/dL 0.2 - 1 .3 mg/dL [facility] Calcium [Mass/Vol] 9.6 mg/dL 8.5 - 10. 2 mg/dL [facility] Chloride [Moles/Vol] 103 mmol/L 97 - 10 5 mmol/L [facility] CO2 [Moles/Vol] 28 mmol/L 22 - 30 mmol/L [facility] Creatinine [Mass/Vol] 1.15 mg/dL High 0.58 - 0.96 mg/dL [facility] Estimated Glomerular Filtration Rate 47 mL/min/1.73m Low >=60 mL/min/1.73m [facility] Glucose [Mass/Vol] 115 mg/dL High 74 - 99 mg/dL [facility] Potassium [Moles/Vol] 4.4 mmol/L 3.7 - 5.1 mmol/L [facility] Protein [Mass/Vol] 6.9 g/dL 6.3 - 8.0 g/dL [facility] Sodium [Moles/Vol] 138 mmol/L 136 - 144 mmol/L [facility] Urea nitrogen [Mass/Vol] 23 mg/dL High 7 - 21 mg/dL [facility] [id number] 12-11-2022 ECG01 Ventricular Rate : 6 9 BPM Atrial Rate : 69 BPM P-R Interval : 130 ms QRS Duration : 82 ms Q-T Interval : 398 ms QTC Calculation(Bazett) : 426 ms Calculated P [place] : -2 degrees Calculated R [place] : 26 degrees Calculated T [place] : 63 degrees NORMAL SINUS RHYTHM NORMAL ECG Confirmed by NUBIA HOWELL DO ([id number]) on 04/05/2023 4:07:42 PM NAME : RADHA GLOVER PID : [id number] : 1940 Gender : Female Race : ORD : Procedure Date : Dec 11 2022 15:10:17 Edit Date : Apr 05 2023 16:07:44 Diagnosis: NORMAL SINUS RHYTHM NORMAL ECG Confirmed by NUBIA HOWELL DO ([id number]) on 04/05/2023 4:07:42 PM Test Reason : Location : 636 : [facility] Overread By : NUBIA HOWELL DO Edited By : NUBIA HOWELL DO Referred By : , Acquired by : Sukhdeep rivas [facility] ECG01 Ventricular Rate : 6 9 BPM Atrial Rate : 69 BPM P-R Interval : 130 ms QRS Duration : 82 ms Q-T Interval : 398 ms QTC Calculation(Bazett) : 426 ms Calculated P [place] : -2 degrees Calculated R [place] : 26 degrees Calculated T [place] : 63 degrees NORMAL SINUS RHYTHM NORMAL ECG Confirmed by NUBIA HOWELL DO ([id number]) on 12/16/2022 4:18:14 PM NAME : RADHA GLOVER PID : [id number] : 1940 Gender : Female Race : ORD : Procedure Date : Dec 11 2022 15:10:17 Edit Date : Dec 16 2022 16:18:18 Diagnosis: NORMAL SINUS RHYTHM NORMAL ECG Confirmed by NUBIA HOWELL DO ([id number]) on 12/16/2022 4:18:14 PM Test Reason : Location : 636 : [facility] Overread By : NUBIA HOWELL DO Edited By : NUBIA HOWELL DO Referred By : BRENNAN MONSIVAIS Acquired by : Sukhdeep rivas [facility] HISTORY PHYSICALon HISTORY PHYSICAL HNO ID: [id number] Author: Kristine Mason APRN.SPECIAL PROJECTS MANAGER Service: ? Author Type: Nurse Practitioner Type: HANDP Filed: 12/11/2022 3:45 PM Note Text: HISTORY AND PHYSICAL EXAMINATION SERVICE DATE: 12/11/2022 SERVICE TIME: 3:44 PM PRIMARY CARE PHYSICIAN: Geo Gonzalez MD REASON FOR VISIT: Radha Glover is a 82 year old female [...] PURPLE TOP) CHIEF COMPLAINT: Pre-op exam HPI: Radha Glover is a 82 year old seen for PAC due to scheduled above surgery because of OA left knee. 08/28/2022, Dr. Monsivais HPI: Radha Glover is a 81 year old patient here for evaluation and management of left knee pain. Radha Glover has had progressive problems with the [...] specific incident that brought about this pain. Radha Glover also complains of referred pain, stiffness, and locking. FUNCTIONAL STATUS: Climb a flight of stairs or walk up a hill (5.50 METs) Total Joint Arthroplasty: Risk Calculator Radha Glover has a 35.73% chance of NOT returning home at discharge for a Primary total Knee replacement. Radha's estimated Length of Stay is 2 days. Radha's 30 day chance of readmission is 7.16%. [...] fevers. Neurological: No history of TIA's, stroke, SURVEILLANCE OPERATOR tumor, impaired sensorium, hemiplegia, paraplegia or quadraplegia. No neurological symptoms or problems. Respiratory: No history of current cough or dyspnea, or pneumonia in the past 6 weeks. No history of respiratory/pulmonary symptoms or problems. Cardiovascular: Positive for: hypertension (on rx) Negative for: anticoagulation therapy, arrhythmia, atrial fibrillation, CAD, chest pain, CHF, congenital heart defect, DVT/PE, hyperlipidemia, recent ID, murmur/valvular heart disease, open heart surgery and valve surgery. GI: Positive for: GERD (otc rx as needed) Negative for: abdominal pain, dysphagia, hepatitis, irritable bowel syndrome, inflammatory bowel disease, liver disease, nausea, pancreatitis, vomiting and ETOH >2 drinks/day. : No history of dysuria, frequency or incontinence, stones or chronic kidney disease. No difficulty urinating, nocturia > 1 time per night or hematuria. CONSUMER INSIGHTS INTERN: Negative for abnormal vaginal bleeding, abnormal vaginal discharge. Endocrine: No history of diabetes. Has not taken steroids within the past 30 days. No history of endocrinological symptoms or problems. Hematology: Positive for: chronic anti-coagulation/platelet meds. Patient is on anti-coagulation/platelet medication(s): Aspirin. Negative for: anemia, brui (more content not included)... Normal [facility] TYPE AND SCREEN,30 DAYon ABO O Normal [facility] Comment on above: Order Comment: Speci men Type: BLOOD SPECIMENOrdering Facility: [facility] Address: [address] [address] Performed By: #### T SCR30 ####[facility] BLOOD BANKCLIA [id number] [address] HISTORICAL AB SCR STATUS Negative Normal [facility] Comment on above: Order Comment: Speci men Type: BLOOD SPECIMENOrdering Facility: [facility] Address: [address] [place] [address] Performed By: #### T SCR30 ####[facility] BLOOD BANKCLIA [id number] [address] Rh Nom (Bld) Positive Normal [facility] Comment on above: Order Comment: Speci men Type: BLOOD SPECIMENOrdering Facility: [facility] Address: [address] [place] [address] Performed By: #### T SCR30 ####[facility] BLOOD BANKCLIA [id number] [address] Florencio [facility]-20[facility] ([id number]) 1940 F Date Time Provider Department 12/08/22 BRENNAN MONSIVAIS MOGurinder During your visit today, we recorded the following information about you: KAILEE Landry 12/16/2022 11:50 AM Signed TOTAL JOINT COMPLETE CARE PROGRAM PRE-OPERATIVE TEACHING Service D/ate: 12/16/2022 Service Time: 11:33 AM Date of : 1940 Gender: female Date of Surgery: 12/28/22 Procedure: Left Total Knee Replacement Complete Care Program was discussed with the patient: [employer] Ere[employer] Helper Identification: Patient identified a caregiver assisted living to help when discharged to home: lives [...] process works. SIGNATURE: KAILEE Landry PATIENT NAME: Radha Glover DATE: December 08, 2022 TIME: 11:14 AM Allergies As of Date: 12/08/2022 Noted Allergy Reaction CODEINE 08/20/2009 8 - GI Upset Comments: Severe vomiting TRAMADOL HCL 02/20/2013 5 - Intolerance Comments: Severe vomiting. CLARITHROMYCIN 02/20/2013 5 - Intolerance Comments: Severe headache HYDROCODONE 02/20/2013 8 - GI Upset Date Reviewed: 08/18/2022 Reviewed by: Brennan Monsivais MD - Fully Assessed Reason for Visit: Pre-Op Teaching [134] Prescriptions as of 12/16/2022 - amLODIPine (NORVASC) 5 mg tablet Take 5 mg by mouth once daily. - aspirin 81 mg cap Take by mouth. - cholecalciferol, vitamin D3, (VITAMIN D3 ORAL) Take by mouth. - mupirocin (BACTROBAN) 2 % ointment Apply 0.5 inch with cotton swab (Q-tip) to each nostril in the morning and evening for 5 days prior to and including day of surgery. - VITAMIN E ORAL Take by mouth once daily. - CALCIUM CARBONATE (CALCIUM 300 ORAL) Take by mouth. - OMEGA-3 FATTY ACIDS (OMEGA 3 ORAL) Take by mouth. - multivitamin ORAL tablet Take 1 tablet by mouth once daily. Facility-Administered Medications as of 12/16/2022 - perflutren lipid microspheres 1.3 mL in NaCl (PF) 0.9% 10 mL injection (DEFINITY) - sodium chloride 0.9 % (flush) 10 mL (BD POSIFLUSH) Meds Comments as of 10/14/2012: glucosamine chondroitin/fish oil/garlic Occuvite daily for vision. HELD VITAMINS FOR A WEEK Problem List As Of Date 12/08/2022 Noted Resolved Hypercholesteremia [E78.00] 04/22/2011 Osteopenia [M85.80] 05/12/2011 Hip arthritis [M16.10] 10/14/2011 03/23/2012 Hip pain [M25.559] 10/14/2011 03/12/2017 Muscle weakness (generalized) [M62.81] 01/22/2012 Rotator cuff arthropathy [M12.819] 09/27/2013 03/12/2017 Encounter Status:Closed by ARLIN JEAN-BAPTISTE on 12/16/22 [facility] Absolute lymphocyte countOrd ered By: Dr. Gonzalez on 11-16-2022 Lymphocytes Auto (Unsp spec) [#/Vol] 1.31 10*3/uL 0.83-4.51 [facility] Basophil percentageOrdered B y: Dr. Gonzalez on 11-16-2022 Basophils/100 WBC (Bld) 0.2 % 0-1 [facility] Chloride [Moles/Vol] 103 mmol/L 98-107 [facility] Cholesterol [Mass/Vol] 257 mg/dL <200 [facility] Comment on above: <200 mg/dL Desirable 200-240 mg/dL Borderline >240 mg/dL High Risk Eosinophils/100 WBC (Bld) 2.1 % 0-5 [facility] Glucose [Mass/Vol] 137 mg/dL 74-106 [facility] Comment on above: Fasting Glucose resu lt greater than or equal to 126 mg/dL suggests DIABETES MELLITUS per A.D.A. criteria. Neutrophils (Bld) [#/Vol] 3.0 10*3/uL 2.0-7.7 [facility] Neutrophils/100 WBC (Bld) 61.9 % 47-70 [facility] Potassium [Moles/Vol] 4.0 mmol/L 3.5-5.1 [facility] Sodium [Moles/Vol] 139 mmol/L 136-145 [facility] Triglyceride [Mass/Vol] 309 mg/dL <199 [facility] Comment on above: The drugs N-Acetylcy steine and Metamizole may falsely depress this assay.Serum Triglycerides Reference Interval Normal <150 mg/dL Borderline high 150 - 199 mg/dL High 200 - 499 mg/dL Very High > or = 500 mg/dL WBC (Bld) [#/Vol] 4.9 10*3/uL 4.4-11.0 [facility] Blood erythrocytes count (nu mber/volume)Ordered By: Dr. Gonzalez on 11-16-2022 RBC (Bld) [#/Vol] 4.19 10*6/uL 4.2-5.4 [facility] Blood hemoglobin measurement (mass/volume)Ordered By: Dr. Gonzalez on 11-16-2022 Hemoglobin (Bld) [Mass/Vol] 12.7 g/dL 12.0-15.0 [facility] Blood lymphocytes/100 leukoc ytesOrdered By: Dr. Gonzalez on 11-16-2022 Lymphocytes/100 WBC (Bld) 27.0 % 19-41 [facility] Blood monocytes/100 leukocyt esOrdered By: Dr. Gonzalez on 11-16-2022 Monocytes/100 WBC (Bld) 8.6 % 0-10 [facility] Blood platelet mean volumeOr dered By: Dr. Gonzalez on 11-16-2022 Platelet mean volume (Bld) [Entitic vol] 10.7 fL 6.2-12.0 [facility] Determination of erythrocyte mean corpuscular volume (MCV)Ordered By: Dr. Gonzalez on 11-16-2022 MCV (RBC) [Entitic vol] 93.3 fL 81-99 [facility] Hematocrit Auto (Bld) [Volum e fraction]Ordered By: Dr. Gonzalez on 11-16-2022 Hematocrit (Bld) [Volume fraction] 39.1 % 37-47 [facility] Laboratory - Chemistry and C hemistry - challengeOrdered By: Dr. Gonzalez on 11-16-2022 CO2 [Moles/Vol] 30.0 mmol/L 21.0-32.0 [facility] Urea nitrogen/Creatinine [Mass ratio] 18.1 mg/mg 10-20 [facility] Laboratory - Hematology and Cell countsOrdered By: Dr. Gonzalez on 11-16-2022 Erythrocyte distribution width (RBC) [Entitic vol] 42.2 fL 35.1-43.9 [facility] Erythrocyte distribution width (RBC) [Ratio] 12.3 % 11.6-14.6 [facility] Immature granulocytes/100 WBC (Bld) 0.200 % 0.0-0.9 [facility] Comment on above: IG% - Immature Granu locytes (promyelocytes, myelocytes and metamyelocytes) > 1% indicates that a LEFT SHIFT is Present. MCH (RBC) [Entitic mass] 30.3 pg 27.0-32.0 [facility] Nucleated RBC/100 WBC (Bld) [Ratio] 0 % 0-5 [facility] MCHC Auto (RBC) [Mass/Vol]Or dered By: Dr. Gonzalez on 11-16-2022 MCHC (RBC) [Mass/Vol] 32.5 g/dL 32-36 [facility] No Panel InformationOrdered By: Dr. Gonzalez on 11-16-2022 Estimated GFR (MDRD) Amer 64 mL/min >60 [facility] Comment on above: GFR Calc Estimated GFR (MDRD) Non-Af Amer 53 mL/min >60 [facility] Comment on above: Non- GFR Calc Vitamin D 25-Hydroxy 32.5 ng/mL [facility] Comment on above: Vitamin D 25(OH) Sta tus Range Deficiency <20 ng/mL (50nmol/L) Insufficiency 20 - 30 ng/mL (50 - 75 nmol/L) Sufficiency 30 - 100 ng/mL (75 - 250 nmol/L) Toxicity >100 ng/mL (>250 nmol/L) Platelets bldOrdered By: Dr. Gonzalez on 11-16-2022 Platelets (Bld) [#/Vol] 242 10*3/uL 150-450 [facility] Serum or plasma calcium pastor urement (mass/volume)Ordered By: Dr. Gonzalez on 11-16-2022 Calcium [Mass/Vol] 9.8 mg/dL 8.5-10.1 [facility] Serum or plasma cholesterol in HDL measurement (mass/volume)Ordered By: Dr. Gonzalez on 11-16-2022 Cholesterol in HDL [Mass/Vol] 42 mg/dL >40 [facility] Comment on above: The drugs N-Acetylcy steine and Metamizole may falsely depress this assay. Reference Range HDL <40 mg/dL Low HDL Cholesterol HDL >or= 60 mg/dL High HDL Cholesterol Serum or plasma cholesterol in VLDL measurement (mass/volume)Ordered By: Dr. Gonzalez on 11-16-2022 Cholesterol in VLDL [Mass/Vol] 62 mg/dL 5-40 [facility] Serum or plasma creatinine m easurement (mass/volume)Ordered By: Dr. Gonzalez on 11-16-2022 Creatinine [Mass/Vol] 1.05 mg/dL 0.55-1.02 [facility] Comment on above: The validity of the calculated GFR & GFRAA in patients over 70 years has not been determined. Clinical correlation is essential. Serum or plasma low density lipoprotein (LDL) cholesterol measurement (mass/volume)Ordered By: Dr. Gonzalez on 11-16-2022 Cholesterol in LDL [Mass/Vol] 153 mg/dL 0-130 [facility] Serum or plasma urea nitroge n measurement (mass/volume)Ordered By: Dr. Gonzalez on 11-16-2022 Urea nitrogen [Mass/Vol] 19 mg/dL 7-18 [facility] Thin prep Papanicolaou smear with manual screeningOrdered By: Dr. Gonzalez on 11-16-2022 Thin prep Papanicolaou smear with manual screening 6 5-15 [facility] CNOVon 08-18-2022 CNOV Office Visit (IVIS ) RADHA GLOVER ([id number]) 1940 F Date Time Provider Department 08/18/22 8:40 AM BRENNAN MONSIVAIS During your visit today, we recorded the following information about you: Brennan Monsivais MD 08/18/2022 9:02 AM Signed CONSULT ORTHOPAEDIC: KNEE PRIMARY CARE PHYSICIAN: David [...] which included preparing to see the patient, [id number] patient care, completing clinical documentation, obtaining and/or [...] (Generalized) SUBJECTIVE CHIEF COMPLAINT: Knee Pain HPI: Radha Glover is a 81 year old patient here for evaluation and management of left knee pain. Radha Glover has had progressive problems with the [...] specific incident that brought about this pain. Radha Glover also complains of referred pain, stiffness, and locking. FUNCTIONAL STATUS: Climb a flight of stairs or walk up a hill (5.50 METs) Total Joint Arthroplasty: Risk Calculator Radha Glover has a 35.73% chance of NOT returning home at discharge for a Primary total Knee replacement. Radha's estimated Length of Stay is 2 days. Radha's 30 day chance of readmission is 7.16%. [...] test Normal: no MRSA CKD normal High: eGFR< (more content not included)... Normal [facility] 07-17-2022 [facility] HNO ID: [id number] Author: RT Yao(R) Service: ? Author Type: Director Community [facility] Nursing Type: Allied Health Filed: 07/17/2022 9:14 AM Note Text: Radiology Service Progress Note PATIENT NAME: Radha Glover DATE OF SERVICE: July 17, 2022 TIME: 9:13 AM PATIENT IDENTITY VERIFICATION COMPLETED USING TWO (2) IDENTIFIERS: Name and Date of confirmed by patient verbally. FALL SCREENING: Has the patient had 2 falls in the last year or 1 fall with injury or currently using an Ambulatory Assistive Device (Walker, Cane, Wheelchair, Crutches, etc.)? No PATIENT GENDER DATA: Female. status: : No status: NO. PATIENT RELEVANT IMPLANT DATA REVIEWED: Not Applicable RADIOLOGY DEPARTMENT: General X-ray: Exam(s) Completed: Lower Extremity X-Ray(s): Knee, AP / Lat / Tunne / Merchant Left PERIPHERAL IV DATA: Not applicable SIGNED BY: RT Yao(R) July 17, 2022 9:13 AM [facility] 07-17-2022 [facility] Office Visit (ORMDNA ) RADHA GLOVER ([id number]) 1940 F Date Time Provider Department 07/17/22 9:00 AM SORIN COOLEY During your visit today, we recorded the following information about you: Weight Height 75.3 kg 1.626 m Sorin Cooley MD 07/17/2022 9:28 AM [facility]igned [facility] Department of Orthopedics [...] satisfaction. This note was partially generated using Dragon voice recognition system and as such may contain grammatical or word errors Sorin Cooley MD Allergies As of Date: 07/17/2022 Noted Allergy Reaction CODEINE 08/20/2009 8 - GI Upset Comments: Severe vomiting TRAMADOL HCL 02/20/2013 5 - Intolerance Comments: Severe vomiting. CLARITHROMYCIN 02/20/2013 5 - Intolerance Comments: Severe headache HYDROCODONE 02/20/2013 8 - GI Upset Date Reviewed: 07/17/2022 Reviewed by: Sorin Cooley MD - Fully Assessed Reason for Visit: New [412036] Knee Pain [132] Primary Visit Diagnosis:Arthritis of knee [M17.10] Prescriptions as of 07/17/2022 - VITAMIN E ORAL Take by mouth once daily. - CALCIUM CARBONATE (CALCIUM 300 ORAL) Take by mouth. - OMEGA-3 FATTY ACIDS (OMEGA 3 ORAL) Take by mouth. - multivitamin ORAL tablet Take 1 tablet by mouth once daily. Meds Comments as of 10/14/2012: glucosamine chondroitin/fish oil/garlic Occuvite daily for vision. HELD VITAMINS FOR A WEEK Problem List As Of Date 07/17/2022 Noted Resolved Hypercholesteremia [E78.00] 04/22/2011 Osteopenia [M85.80] 05/12/2011 Hip arthritis [M16.10] 10/14/2011 03/23/2012 Hip pain [M25.559] 10/14/2011 03/12/2017 Muscle weakness (generalized) [M62.81] 01/22/2012 Rotator cuff arthropathy [M12.819] 09/27/2013 03/12/2017 Encounter Status:Closed by SORIN COOLEY on 07/17/22 Normal [facility] XR KNEE 4V AP/PA BOTH+LAT/ME R LTon 07-17-2022 XR KNEE 4V AP/PA BOTH+LAT/LIZ LT * * *Final Report* * * DATE OF EXAM: Jul 17 2022 9:13AM [facility] 5202 - XR KNEE 4V AP/PA BOTH+LAT/LIZ LT / PROCEDURE REASON: M25.562-Left knee pain, unspecified chronicity * * * * Physician Interpretation * * * * Left knee radiographs HISTORY: 81 years old Clinical information: Left knee pain, unspecified chronicity pain TECHNIQUE: Images: XR KNEE 4V AP/PA BOTH+LAT/LIZ LT Comparison: None. RESULT: Findings: Narrowing of medial compartment joint space. Probable bone on bone and medial femoral condyle and tibial plateau. Marginal osteophytes extending off tibial plateaus, femoral condyles, and posterior aspect of the patella. No fracture or dislocation. No large joint effusion. Possible intra-articular bodies in the posterior joint space. No soft tissue abnormality identified. IMPRESSION: Osteoarthrosis of the left knee with probable bone on bone of the medial femoral condyle and tibial plateau. Flower Cheniller: [facility] Transcribe Date/Time: Jul 17 2022 3:14P Dictated by : CHOCO ZAVALA MD This examination was interpreted and the report reviewed and electronically signed by: CHOCO ZAVALA MD on Jul 17 2022 3:15PM EST [id number] [facility] XR Knee - left 4 Viewson IMPRESSION: Osteoarthrosis of the left knee with probable bone on bone of the medial femoral condyle and tibial plateau. Flower Cheniller: [facility] Transcribe Date/Time: Jul 17 2022 3:14P Dictated by : CHOCO ZAVALA MD This examination was interpreted and the report reviewed and electronically signed by: CHOCO ZAVALA MD on Jul 17 2022 3:15PM EST [facility] * * *Final Report* * * DATE OF EXAM: Jul 17 2022 9:13AM [facility] 5202 - XR KNEE 4V AP/PA BOTH+LAT/LIZ LT / PROCEDURE REASON: M25.562-Left knee pain, unspecified chronicity * * * * Physician Interpretation * * * * Left knee radiographs HISTORY: 81 years old Clinical information: Left knee pain, unspecified chronicity pain TECHNIQUE: Images: XR KNEE 4V AP/PA BOTH+LAT/LIZ LT Comparison: None. RESULT: Findings: Narrowing of medial compartment joint space. Probable bone on bone and medial femoral condyle and tibial plateau. Marginal osteophytes extending off tibial plateaus, femoral condyles, and posterior aspect of the patella. No fracture or dislocation. No large joint effusion. Possible intra-articular bodies in the posterior joint space. No soft tissue abnormality identified. [facility] Provider, Le Phipps - 07/17/2022 * * *Final Report* * * DATE OF EXAM: Jul 17 2022 9:13AM [facility] 5202 - XR KNEE 4V AP/PA BOTH+LAT/LIZ LT / PROCEDURE REASON: M25.562-Left knee pain, unspecified chronicity * * * * Physician Interpretation * * * * Left knee radiographs HISTORY: 81 years old Clinical information: Left knee pain, unspecified chronicity pain TECHNIQUE: Images: XR KNEE 4V AP/PA BOTH+LAT/LIZ LT Comparison: None. RESULT: Findings: Narrowing of medial compartment joint space. Probable bone on bone and medial femoral condyle and tibial plateau. Marginal osteophytes extending off tibial plateaus, femoral condyles, and posterior aspect of the patella. No fracture or dislocation. No large joint effusion. Possible intra-articular bodies in the posterior joint space. No soft tissue abnormality identified. IMPRESSION IMPRESSION: Osteoarthrosis of the left knee with probable bone on bone of the medial femoral condyle and tibial plateau. [facility] Cheniller[facility] Transcribe Date/Time: Jul 17 2022 3:14P Dictated by : CHOCO ZAVALA MD This examination was interpreted and the report reviewed and electronically signed by: CHOCO ZAVALA MD on Jul 17 2022 3:15PM EST [facility] Radiology Study observation (narrative) [facility] XR Knee - left 4 ViewsOrdere d By: [facility] Provider on 07-17-2022 [facility] Basic Metabolic Panel $$$on 01-12-2018 Anion gap 15.4 mmol/L Normal [facility] Comment on above: Performed By: #### B MP ####[facility] [place] [address] BUN (urea nitrogen) 26 mg/dL High 7-18 [facility] Comment on above: Performed By: #### B MP ####[facility] [place] [address] Calcium 9.4 mg/dL Normal 8.5-10.1 [facility] Comment on above: Performed By: #### B MP ####[facility] [place] [address] Chloride 107 mmol/L Normal 98-107 [facility] Comment on above: Performed By: #### B MP ####[facility] [place] [address] CO2 25 mmol/L Normal 21-32 [facility] Comment on above: Performed By: #### B MP ####[facility] [place] [address] Creatinine 1.1 mg/dL Normal 0.6-1.3 [facility] Comment on above: Performed By: #### B MP ####[facility] [place] [address] eGFR (non-black) mL/min/{1.73_m2} Normal [facility] Comment on above: Result Comment: eGFR Units of measure: mL/min/1.73 m 2 Performed By: #### B MP ####[address] [address] Glucose mass conc 164 mg/dL High 74-106 [facility] Comment on above: Performed By: #### B MP ####[facility] [place] [address] Potassium molar conc 4.4 mmol/L Normal 3.5-5.1 [facility] Comment on above: Performed By: #### B MP ####[address] [address] Sodium 143 mmol/L Normal 136-145 [facility] Comment on above: Performed By: #### B MP ####[facility] [place] [address] CBC and Differentialon 12-23 Abs Baso <0.03 Normal <0.11 [facility] Comment on above: Performed By: #### C BCDIF, CMP, LIPB, TSH ####[facility] LaboratoriesRoutine [address]iu[address] [place], [place] [phone] Abs Harrison 0.35 k/uL Normal <0.87 [facility] Comment on above: Performed By: #### C BCDIF, CMP, LIPB, TSH ####[place] [address] [address] [place] [phone] Abs Neut 3.03 k/uL Normal 1.45-7.50 [facility] Comment on above: Performed By: #### C BCDIF, CMP, LIPB, TSH ####[place] [address] [address] [place] [phone] Basophils/100 WBC Auto (Bld) 0.4 % Normal [facility] Comment on above: Performed By: #### C BCDIF, CMP, LIPB, TSH ####[phone] DTYPE ADIFF Normal [facility] Comment on above: Performed By: #### C BCDIF, CMP, LIPB, TSH ####[place] [address] [address] [place] [phone] Eosinophils 0.14 10*3/uL Normal <0.46 [facility] Comment on above: Performed By: #### C BCDIF, CMP, LIPB, TSH ####[place] [address] [address] [phone] Eosinophils/100 leukocytes 2.6 % Normal [facility] Comment on above: Performed By: #### C BCDIF, CMP, LIPB, TSH ####[address] [phone] Erythrocyte distribution width Auto Ratio (RBC) 12.7 % Normal 11.5-15.0 [facility] Comment on above: Performed By: #### C BCDIF, CMP, LIPB, TSH ####[facility] [address] [place] [phone] Erythrocytes (RBC) 0.0 /100 WBC Normal 0 [facility] Reference Lab Comment on above: Performed By: #### C BCDIF, CMP, LIPB, TSH ####[address] [place] [phone] Erythrocytes (RBC) 4.50 10*6/uL Normal 3.90-5.20 [facility] Reference Lab Comment on above: Performed By: #### C BCDIF, CMP, LIPB, TSH ####[place] [phone] Erythrocytes (RBC) 10*6/uL Normal <0.01 [facility] Reference Lab Comment on above: Performed By: #### C BCDIF, CMP, LIPB, TSH ####[place] [phone] Hematocrit (HCT) 41.5 % Normal 36.0-46.0 [facility] Reference Lab Comment on above: Performed By: #### C BCDIF, CMP, LIPB, TSH ####[place] [phone] Hemoglobin mass conc (Bld) 13.7 g/dL Normal 11.5-15.[address] [facility] Comment on above: Performed By: #### C BCDIF, CMP, LIPB, TSH ####[place] [phone] Lymphocytes 1.74 10*3/uL Normal 1.00-4.00 [facility] Reference Lab Comment on above: Performed By: #### C BCDIF, CMP, LIPB, TSH ####[place] [id number] [place] [phone] Lymphocytes/100 leukocytes 32.8 % Normal [facility] Lab Comment on above: Performed By: #### C BCDIF, CMP, LIPB, TSH ####[facility] [address] Ave[address] [place] [phone] MCH 30.4 pG Normal 26.0-34.0 [facility] Reference Lab Comment on above: Performed By: #### C BCDIF, CMP, LIPB, TSH ####[facility] [address] Ave[address] [place] [phone] MCHC mass conc (RBC) 33.0 g/dL Normal 30.5-36.0 [facility] Reference Lab Comment on above: Performed By: #### C BCDIF, CMP, LIPB, TSH ####[place] [address] [address] [place] [phone] MCV 92.2 fL Normal 80.0-100.0 [facility] Comment on above: Performed By: #### C BCDIF, CMP, LIPB, TSH ####[place] [address] [address] [phone] Monocytes/100 leukocytes 6.6 % Normal [facility] Reference Lab Comment on above: Performed By: #### C BCDIF, CMP, LIPB, TSH ####[place] [id number] [place] [phone] Neutrophils/100 WBC Auto (Bld) 57.6 % Normal [facility] Comment on above: Performed By: #### C BCDIF, CMP, LIPB, TSH ####[place] [address] [address] [phone] Platelet mean volume (PMV) 10.6 fL Normal 9.0-12.7 [facility] Lab Comment on above: Performed By: #### C BCDIF, CMP, LIPB, TSH ####[place] [address] [address] [phone] Platelets 262 10*3/uL Normal 150-400 [facility] Reference Lab Comment on above: Performed By: #### C BCDIF, CMP, LIPB, TSH ####[facility] [address] [place], [place] [phone] WBC (Leukocytes) 5.30 10*3/uL Normal 3.70-11.00 [facility] Reference Lab Comment on above: Performed By: #### C BCDIF, CMP, LIPB, TSH ####[phone] Comp Metabolic Panelon 12-23 Alanine aminotransferase (ALT) 21 U/L Normal 7-38 [facility] Reference Lab Comment on above: Performed By: #### C BCDIF, CMP, LIPB, TSH ####[place] [phone] Albumin 4.1 g/dL Normal 3.9-4.9 [facility] Comment on above: Performed By: #### C BCDIF, CMP, LIPB, TSH ####[place] [phone] Alkaline phosphatase (ALP) 95 U/L Normal 32-117 [facility] Lab Comment on above: Performed By: #### C BCDIF, CMP, LIPB, TSH ####[place] [phone] Anion gap 13 mmol/L Normal 9-18 [facility] Lab Comment on above: Performed By: #### C BCDIF, CMP, LIPB, TSH ####[place] [phone] Aspartate aminotransferase (AST) 22 U/L Normal 13-35 [facility] Lab Comment on above: Performed By: #### C BCDIF, CMP, LIPB, TSH ####[facility] [address] [phone] Bilirubin Ql (U) 0.2 mg/dL Normal 0.2-1.3 [facility] Reference Lab Comment on above: Performed By: #### C BCDIF, CMP, LIPB, TSH ####[facility] [phone] Calcium 9.3 mg/dL Normal 8.5-10.2 [facility] Comment on above: Performed By: #### C BCDIF, CMP, LIPB, TSH ####[place] [address] [address] [place] [phone] Chloride 104 mmol/L Normal 97-105 [facility] Lab Comment on above: Performed By: #### C BCDIF, CMP, LIPB, TSH ####[place] [address] [address] [place] [phone] CO2 26 mmol/L Normal 22-30 [facility] Comment on above: Performed By: #### C BCDIF, CMP, LIPB, TSH ####[place] [address] [address] [phone] Creatinine 0.99 mg/dL High 0.58-0.96 [facility] Reference Lab Comment on above: Performed By: #### C BCDIF, CMP, LIPB, TSH ####[place] [address] [address] [place] [phone] eGFR (non-black) 54 . Normal [facility] Comment on above: Performed By: #### C BCDIF, CMP, LIPB, TSH ####[facility] [address] [phone] eGFR (non-black) mL/min/{1.73_m2} Normal [facility] Comment on above: Performed By: #### C BCDIF, CMP, LIPB, TSH ####[facility] [address] [place] [phone] Glucose mass conc 107 mg/dL High 74-99 [facility] Comment on above: Performed By: #### C BCDIF, CMP, LIPB, TSH ####[facility] [address] [place], [place] [phone] Potassium molar conc 4.7 mmol/L Normal 3.7-5.1 [facility] Comment on above: Performed By: #### C BCDIF, CMP, LIPB, TSH ####[place] [phone] Protein 7.2 g/dL Normal 6.3-8.0 [facility] Comment on above: Performed By: #### C BCDIF, CMP, LIPB, TSH ####[place] [phone] Sodium 143 mmol/L Normal 136-144 [facility] Comment on above: Performed By: #### C BCDIF, CMP, LIPB, TSH ####[place] [phone] Urea nitrogen 17 mg/dL Normal 7-21 [facility] Comment on above: Performed By: #### C BCDIF, CMP, LIPB, TSH ####[place] [phone] Lipid Panel, Basicon 12-23- 018 Cholesterol 271 mg/dL High <200 [facility] Comment on above: Performed By: #### C BCDIF, CMP, LIPB, TSH ####[place] [phone] Cholesterol in VLDL mass conc 40 mg/dL High <30 [facility] Comment on above: Performed By: #### C BCDIF, CMP, LIPB, TSH ####[place] [address] [address] [phone] HDL Cholesterol 49 mg/dL Normal >39 [facility] Comment on above: Performed By: #### C BCDIF, CMP, LIPB, TSH ####[facility] [address] [place] [phone] LDL Cholesterol 182 mg/dL High <100 [facility] Comment on above: Performed By: #### C BCDIF, CMP, LIPB, TSH ####[address] [place] [phone] LDL:HDL Ratio 3.71 High <2.54 [facility] Comment on above: Performed By: #### C BCDIF, CMP, LIPB, TSH ####[place] [address] [address] [place] [phone] Non HDL Cholesterol 222 mg/dL High <130 [facility] Reference Lab Comment on above: Performed By: #### C BCDIF, CMP, LIPB, TSH ####[place] [phone] TC:HDL Ratio 5.53 High <5.10 [facility] Comment on above: Performed By: #### C BCDIF, CMP, LIPB, TSH ####[place] [address] [address] [place] [phone] Triglyceride 202 mg/dL High <150 [facility] Comment on above: Performed By: #### C BCDIF, CMP, LIPB, TSH ####[place] [phone] Fasting Time 12 hrs Normal [facility] Comment on above: Performed By: #### C BCDIF, CMP, LIPB, TSH ####[place] [address] [address] [place] [phone] TSHon 12-23-2017 Thyroid stimulating hormone (TSH) 4.810 uU/mL Normal 0.400-5.500 [facility] Lab Comment on above: Performed By: #### C BCDIF, CMP, LIPB, TSH ####[facility] LaboratoriesRoutine [address], [place] [phone] AUTO DIFFon 08-27-2017 Basophils Auto #/vol (Bld) 0.02 x1000 Normal 0.00-0.20 [facility] Comment on above: Performed By: #### 1 89812, 8250414, 174526, 6869445 ####[facility] [address] [place], [place] [id number]) [phone] Director: Gagandeep Ervin MD Basos % 0.3 % Normal [facility] Comment on above: Performed By: #### 1 23154, 6676142, 861045, 9243326 ####[facility] Sch[address]fev[address]39 [place], [place] [id number]) [phone] Director: Gagandeep Ervin MD Eos Count 0.13 x1000 Normal 0.00-0.50 [facility] Comment on above: Performed By: #### 1 61737, 2411175, 764777, 8436455 ####[facility] Xsdjyygg53826 [place], [place] [address]) [phone] Director: Gagandeep Ervin MD Eosinophils/100 leukocytes 2.4 % Normal [facility] Comment on above: Performed By: #### 1 52083, 7407421, 644460, 8812873 ####[facility] Ijbkrgkk10285 [place], [place] [address]78[address]) [phone] Director: Gagandeep Ervin MD Lymphocytes 1.45 x1000 Normal 1.20-4.80 [facility] Comment on above: Performed By: #### 1 71868, 7383065, 327056, 7630986 ####[facility] Agevgwlw97959 [place], [place] 1837[address]) [phone] Director: Gagandeep Ervin MD Lymphocytes/100 leukocytes 25.6 % Normal [facility] Comment on above: Performed By: #### 1 21119, 3798001, 108738, 4795901 ####[facility] [address]ypf569[address] [place] [address] Medical Director: Gagandeep Ervin MD Harrison Count 0.38 x1000 Normal 0.10-1.00 [facility] Comment on above: Performed By: #### 1 88916, 2535225, 932209, 6252000 ####[facility] K[address]icpqo65102 [place] [address] Medical Director: Gagandeep Ervin MD Monocytes/100 leukocytes 6.7 % Normal [facility] Comment on above: Performed By: #### 1 29241, 4069454, 884502, 9629737 ####[facility] Wjbnlmsi71284 [place] [address] Medical Director: Gagandeep Ervin MD Neutrophils 3.69 x1000 Normal 1.40-8.80 [facility] Comment on above: Performed By: #### 1 77092, 4190367, 271877, 5200334 ####[facility] Xaelxpgf08418 [place] [address] Medical Director: Gagandeep Ervin MD Neutrophils/100 WBC Auto (Bld) 65.1 % Normal [facility] Comment on above: Performed By: #### 1 93348, 4354499, 276978, 3711832 ####[facility] Qftrzpnw47817 [place] [address] Medical Director: Gagandeep Ervin MD COMPMETAon 08-27-2017 Globulin 3.6 g/dL Normal [facility] Comment on above: Performed By: #### 1 75400, 3631677, 407584, 0197768 ####[facility] Iwmnfnsb09515 [place] [address] Medical Director: Gagandeep Arcadio, MD Osmolality 280 mOsm/kg Normal 275-295 [facility] Comment on above: Performed By: #### 1 81249, 4219057, 727363, 5056141 ####[facility] [address]elz[address]84 [place] [address] Medical Director: Gagandeep Ervin MD eGFR (non-black) mL/min/{1.73_m2} Normal So [facility] Comment on above: Result Comment: Afri can [place] GFR Calc Performed By: #### 1 76067, 4964240, 548971, 4120176 ####[facility] Whsmlutt56233 [place] [address] Medical Director: Gagandeep Evrin MD eGFR (non-black) 58 mL/min/1.73m? Normal So [facility] Comment on above: Result Comment: Non GFR CalcMedical judgement is necessary to interpret GFR. The calculated GFR may not accurately reflect renal status in patients >70 years, women, acutely ill hospitalized patients and patients with acute renal failure or known renal disease.Note:Creatinine clearance (not GFR) should be used for drug dosing. Performed By: #### 1 94991, 2112400, 960367, 6865283 ####[facility] Fbuyphnh30331 [place] [address] Medical Director: Gagandeep Ervin MD BUN/Creatinine Ratio 20.2 mg/mg Normal [facility] [place] [facility] Comment on above: Performed By: #### 1 06319, 0886873, 731032, 0521304 ####[facility] Onwwvyvi[address]64 [place] [address] Medical Director: Gagandeep Ervin MD Albumin/Globulin Ratio 0.9 {ratio} Normal [facility] Comment on above: Performed By: #### 1 81809, 5436410, 112311, 1482384 ####[facility] [address]dfp84[address] [place] [address] Medical Director: Gagandeep Ervin MD Alk Phos 101 unit/L Normal 45-117 [facility] Comment on above: Performed By: #### 1 15207, 6538176, 350279, 0850961 ####[facility] Ahysqnfh38861 [place] [address] Medical Director: Gagandeep Ervin MD Protein 7.0 g/dL Normal 6.0-8.5 [facility] Comment on above: Performed By: #### 1 84857, 3702152, 849430, 9916560 ####[facility] Sojoopxp94441 [place] [address] Medical Director: Gagandeep Ervin MD Bilirubin (total) 0.36 mg/dL Normal 0.20-1.00 [facility] Comment on above: Performed By: #### 1 50157, 3873540, 042286, 6606641 ####[facility] [address] [place] [phone] Medical Director: Gagandeep Ervin MD GPT 26 unit/L Normal 13-56 [facility] Comment on above: Result Comment: Marina puncture should occur prior to sulfasalazine and/or sulfapyridine administration due to the potential for falsely depressed results.Baseline assay values before administration of sulfasalazine and sulfapyridine therapy would not be affected. Performed By: #### 1 64159, 7287894, 289873, 5605246 ####[facility] Ydcseeky77937 [place] [address] Medical Director: Gagandeep Ervin MD Creatinine 0.9 mg/dL Normal 0.6-1.0 [facility] Comment on above: Performed By: #### 1 63509, 0440353, 795125, 2929747 ####[facility] Umhjlxvf37[address] [place], [place] [id number]) [phone] Director: Gagandeep Ervin MD GOT 17 unit/L Normal 15-37 [facility] Comment on above: Result Comment: Marina puncture should occur prior to sulfasalazine and/or sulfapyridine administration due to the potential for falsely depressed results.Baseline assay values before administration of sulfasalazine and sulfapyridine therapy would not be affected. Performed By: #### 1 51295, 8148581, 881842, 2921404 ####[facility] [address]hvp87[address] [place] [address] Medical Director: Gagandeep Ervin MD Glucose mass conc 107 mg/dL High 72-100 [facility] Comment on above: Result Comment: Marina puncture should occur prior to sulfasalazine administration due to the potential for falsely depressed results. Venipuncture should occur prior to sulfapyridine administration due to the potential falsely elevated results.Baseline assay values before administration of sulfasalazine and sulfapyridine therapy would not be affected. Performed By: #### 1 19415, 0658344, 219838, 2262136 ####[facility] Tstoghbj04491 [place] [address] Medical Director: Gagandeep Ervin MD Urea nitrogen 19 mg/dL Normal 10-20 [facility] Comment on above: Performed By: #### 1 89059, 7662381, 901535, 5334481 ####[facility] Svmtlkzm63783 [place] [address] Medical Director: Gagandeep Ervin MD Albumin 3.4 g/dL Normal 3.4-5.0 [facility] Comment on above: Performed By: #### 1 64675, 8501875, 539964, 4877576 ####[facility] Xkpovspc01644 [place] [address] Medical Director: Gagandeep Ervin MD CO2 30.1 mmol/L Normal 21.0-32.0 [facility] Comment on above: Performed By: #### 1 23972, 0613647, 124554, 3987684 ####[facility] Azmwtjry67495 [place] [address] Medical Director: Gagandeep Ervin MD Calcium 9.0 mg/dL Normal 8.5-10.5 [facility] Comment on above: Performed By: #### 1 36064, 3611009, 681319, 6966703 ####[facility] Kiyoxncu86474 [place] [address] Medical Director: Gagandeep Ervin MD Sodium 139 mmol/L Normal 135-145 [facility] Comment on above: Performed By: #### 1 10465, 7837157, 722073, 2927170 ####[facility] Wnxgfjlf15301 [place] [address] Medical Director: Gagandeep Ervin MD Potassium molar conc 4.4 mmol/L Normal 3.5-5.1 [facility] [place] [facility] Comment on above: Performed By: #### 1 82371, 9661910, 061263, 0343311 ####[facility] Rgknjahb53803 [place] [address] Medical Director: Gagandeep Ervin MD Chloride 107 mmol/L Normal 100-109 [facility] Comment on above: Performed By: #### 1 04558, 4808734, 179730, 6312475 ####[facility] Pqvsvxdr27002 [place] [address] Medical Director: Gagandeep Ervin MD HEMOon 08-27-2017 DIFF? No Normal [facility] Comment on above: Performed By: #### 1 10002, 1715257, 549227, 6325431 ####[facility] Rvazxdiy53370 [place] [address] Medical Director: Gagandeep Ervin MD Erythrocyte distribution width Auto Ratio (RBC) 13.2 % Normal 11.5-14.5 [facility] Comment on above: Performed By: #### 1 65390, 9504197, 818080, 3536593 ####[facility] Uprtnrxq61919 [place] [address] Medical Director: Gagandeep Ervin MD Erythrocytes (RBC) 4.18 x10 Low 4.20-5.40 [facility] Comment on above: Result Comment: Note : RBC morphology is normal unless otherwise stated. Evaluation performed only if differential is requested. Performed By: #### 1 52816, 3145914, 633216, 2810776 ####[facility] Xqehqqfk73598 [place], [place] [id number]) [phone] Director: Gagandeep Ervin MD Hematocrit (HCT) 37.7 % Normal 36.0-46.0 [facility] Comment on above: Performed By: #### 1 84420, 6390409, 393400, 0138022 ####[facility] Rdbijfby63068 [place] [address] Medical Director: Gagandeep Ervin MD Hemoglobin mass conc (Bld) 12.6 g/dL Normal 12.0-16.0 [facility] Comment on above: Performed By: #### 1 38836, 8833650, 584275, 4038002 ####[facility] Osuzkixv80127 [place] [address] Medical Director: Gagandeep Ervin MD MCH 30.1 pg Normal 27.0-34.0 [facility] Comment on above: Performed By: #### 1 40780, 2845539, 191571, 2502385 ####[facility] Cklytyvo61759 [place] [address] Medical Director: Gagandeep Ervin MD MCHC mass conc (RBC) 33.3 g/dL Normal 32.0-37.0 [facility] [place] [facility] Comment on above: Performed By: #### 1 00216, 7167640, 683665, 0728863 ####[facility] Ctmpdfhz02599 [place] [address] Medical Director: Gagandeep Ervin MD MCV 90.3 fL Normal 80.0-100.0 [facility] Comment on above: Performed By: #### 1 18140, 0085016, 767146, 5245589 ####[facility] Dtvyagdl08047 [place] [address] Medical Director: Gagandeep Ervin MD Nucleated RBC% 0 /100WC Normal [facility] Comment on above: Performed By: #### 1 94757, 8474319, 387207, 0252251 ####[facility] Hajuhogf[address]87 [place] [address] Medical Director: Gagandeep Ervin MD Platelet mean volume (PMV) 8.8 fL Normal 7.4-10.4 [facility] Comment on above: Performed By: #### 1 35947, 1806273, 539518, 8071124 ####[facility] Wghqdmer83789 [place] [address] Medical Director: Gagandeep Ervin MD Platelets 214 x1000 Normal 150-450 [facility] Comment on above: Performed By: #### 1 31237, 4244480, 126011, 4203519 ####[facility] Ialpmyak87787 [place] [address] Medical Director: Gagandeep Ervin MD WBC (Leukocytes) 5.7 10*3/uL Normal [facility] Comment on above: Performed By: #### 1 80250, 3257019, 950718, 6299602 ####[facility] Uubiiwjp59577 [place] [address] Medical Director: Gagandeep Ervin MD WBC (Leukocytes) 5.7 x10 Normal 4.5-11.0 [facility] Comment on above: Performed By: #### 1 35954, 1711976, 786762, 9272914 ####[facility] Hof[address]yagu75326 [place] [address] Medical Director: Gagandeep Ervin MD LIPID PNLon 08-27-2017 Calculated LDL Cholesterol 188 mg/dL High 60-130 [facility] Comment on above: Result Comment: <100 mg/dl Tfrelpt570-474 mg/dl Near Wranoda183-469 mg/dl Borderline Iogo988-023 mg/dl High>=190 mg/dl Very High Performed By: #### 1 46645, 4046672, 633417, 9940615 ####[facility] Blkvwhud37682 [place] [address] Medical Director: Gagandeep Ervin MD Cholesterol to HDL Ratio 5.6 {ratio} Normal [facility] Comment on above: Performed By: #### 1 62183, 5207423, 301854, 6884709 ####[facility] Qjmezqia13260 [place] [address] Medical Director: Gagandeep Ervin MD Cholesterol 272 mg/dL High 100-200 [facility] Comment on above: Result Comment: <200 mg/dl Vlxokdhso239-018 mg/dl Borderline High>= 240 mg/dl High Performed By: #### 1 23625, 2470210, 952355, 2339998 ####[facility] Dhtjmtam70676 [place] [address] Medical Director: Gagandeep Ervin MD HDL Cholesterol 49 mg/dL Normal 40-60 [facility] Comment on above: Performed By: #### 1 28701, 8943970, 421249, 5500003 ####[facility] Qidoethu99898 [place] [address] Medical Director: Gagandeep Ervin MD Triglyceride 176 mg/dL High 30-150 [facility] Comment on above: Performed By: #### 1 63503, 1116677, 506291, 7090236 ####[facility] Zzdtdnio97387 [place] [address] Medical Director: Gagandeep Ervin MD TSHon 08-27-2017 Thyroid stimulating hormone (TSH) 2.88 uIU/ml Normal 0.36-3.74 [facility] Comment on above: Result Comment: High levels of serum biotin may interfere with this test. Performed By: #### 1 51148 ####[facility] Ojvtyrpx19401 [place] [address] Medical Director: Gagandeep Ervin MD ANES La 03-17-2017 ANES POST HNO ID: [id number] thor: Akbar Jaimeice: AnesthesiologyAuthor Type: AnesthesiologistType: Anesthesia PostOpFiled: 03/17/2017 12:09 PMNote Text:POST ANESTHESIA EVALUATION NOTESERVICE DATE: 03/17/2017SERVICE TIME: 12:09 PMDOB: 1940Vitals: Temp: 36.3 ?C (97.3 ?F) 130 145 BP: 171/76 166/74 160/59 129/61 115 130 145 Pulse: 75 73 66 78 115 130 145 Resp: 16 18 16 16 140 142 145 SpO2: 92% 97% 100% 100%Validated Vital Signs: YesNo apparent anesthetic complications. The patient is appropriatelyhydrated with stable respiratory and cardiovascular status. Patient hassafe and adequate airway control. The patient has appropriate pain reliefand no significant post operative nausea or vomiting. The patient hasachieved baseline mental status.Further assessment by Anesthesia Service: NoneOther Remarks: BP returned to baselineSIGNATURE: Akbar Macias MD PATIENT NAME: Radha GloverDATE: March 17, 2017 PAGER/CONTACT #: [phone] pager [facility] ANES PREOPon 03-17-2017 ANES PREOP HNO ID: [id number] thor: Akbar Jaimeice: AnesthesiologyAuthor Type: AnesthesiologistType: Anesthesia PreOpFiled: 03/17/2017 8:03 AMNote Text:[facility] ANESTHESIOLOGY DAY OF SURGERY NOTEPATIENT NAME: Radha GloverMRN: [id number]: 1940Procedure(s) (LRB):THIGHPLASTY (Bilateral)Surgeon(s):Joyes h RajEstimated body mass index is 28.49 kg/(m2) as calculated from thefollowing: Height as of 03/12/17: 162.6 cm (5' 4). Weight as of 03/12/17: 75.3 kg (166 lb).ASA Class: 2Adequate NPO status: YesAllergies:ALLERGIESAller gen Reactions- Codeine GI Upset Severe vomiting- Tramadol Hcl Intolerance Severe vomiting.- Clarithromycin Intolerance Severe headache- Hydrocodone GI UpsetAirway Assessment: MP 2; Neck ROM: Full ROM without neurologic symptoms;Airway Evaluation: No significant abnormalitiesDentition: Teeth intactSymptoms of Sleep Apnea: DeniesMost recent lab results:Hemoglobin 7.5 12/03/2011Hematocrit 21.5 12/03/2011Potassium 4.5 12/02/2011Platelet Count 175 12/02/2011Creatinine 1.00 12/02/2011EKG:Not indicatedVitals:There were no vitals filed for this visit.Previous Anesthesia: No history of adverse event Family history ofanesthetic problems: NoneAdditional Physical Exam:Lungs: Lungs clear to auscultation. Good diaphragmatic excursion.Cardiac: Normal S1 and S2; no rubs, no murmurs and no gallopsAdditional pertinent findings: N/AOther Medical Problems/ Important Considerations:Denies chest pain and SOB with exertion.Denies change in functional capacity.Denies GERD.Chronic Beta Mychal medication administered within 24 hours: N/AAnesthetic risks, benefits, alternatives, personnel and consent discussed:YesPatient agrees to proceed: YesBlood Products: Not anticipated for this procedureAnesthetic Plan: General LMA; Standard ASA MonitorsPain Management Plan: Parenteral or OralEPIC Chart ReviewACTIVE PROBLEM LISTHypercholesteremiaOsteo peniaMuscle Weakness (Generalized)PAST MEDICAL HISTORYDiagnosis Date- HyperlipidemiaPAST SURGICAL HISTORYNo date: NONE Comment: tubal pregNo date: REPAIR ROTATOR CUFF,ACUTE Right Comment: Rotator cuff repairNo date: TOTAL ABDOM HYSTERECTOMY Comment: Hysterectomy, : TOTAL HIP REPLACEMENT Right Comment: Hip replacement, [id number]: TOTAL KNEE REPLACEMENT Right Comment: Knee replacement, totalFAMILY HISTORY None FatherSocial History:Social HistorySubstance Use Topics- Smoking status: Never Smoker- Smokeless tobacco: Never Used Comment: No- Alcohol use Yes Comment: rarelyCurrent Outpatient Prescriptions on File Prior to Encounter:CALCIUM CARBONATE (CALCIUM 300 ORAL) Take by mouth.OMEGA-3 FATTY ACIDS (OMEGA 3 ORAL) Take by mouth.multivitamin ORAL tablet Take 1 tablet by mouth once daily.No current facility-administered medications on file prior to encounter.Inpatient medications reviewed in EPIC.I have interviewed and examined the patient. I have reviewed the medicalrecord and/or the pre-anesthesia evaluation, pertinent labs, and testresults.Significant changes in the patient's condition since the History andPhysical, not otherwise documented in primary service progress notes: NoThis contains updated information obtained within 48 hours ofSurgery/Procedure.SIGNATU RE: Akbar Macisa MD PATIENT NAME: Radha BergmanTE: March 17, 2017 : 8:02 AM PAGER/CONTACT #: [phone] (pager) [facility] BRIEF OP NOTon 03-17-2017 BRIEF OP NOT HNO ID: [id number] thor: German Lopez: Plastic SurgeryAuthor Type: PhysicianType: Brief Op NoteFiled: 03/17/2017 10:24 AMNote Text:BRIEF OPERATIVE NOTELOG ID: [id number] Date: 03/17/2017Surgeon(s) and Nitrocellulose Maker(s):Surgeon(s) and Role: * German Salcedo - PrimaryPreop Diagnosis: Z41.1 CosmeticPostop Diagnosis: sameProcedure(s):Procedure( s) (LRB):THIGHPLASTY (Bilateral)Anesthesia: GeneralFindings: noneEstimated Blood Loss: 10 mlsSpecimens: noneSIGNATURE: German Salcedo MD PATIENT NAME: Radha BergmanTE: March 17, 2017 : 10:24 AM PAGER/CONTACT #: [facility] OPERATIVE NOon 03-17-2017 OPERATIVE NO HNO ID: [id number] thor: German Lopez: Plastic SurgeryAuthor Type: PhysicianType: Operative ReportFiled: 03/22/2017 7:41 AMNote Text:[facility] - [facility] ANTHONYGÉNESIS RADHATROY: 1940 AGE: 76 SEX: FMRN: [id number] [facility]ACEHEALTHNUM: [id number] SVC: LOCATION:ATTENDING PHYSICIAN: German Salcedo M.D.DATE OF PROCEDURE: 03/17/2017PREOPERATIVE DIAGNOSIS: Bilateral medial thigh lipodystrophy.POSTOPERATIVE DIAGNOSIS: Same.NAME OF OPERATION: Revision bilateral medial thigh lift.SURGEON: German Salcedo M.D.RESIDENTIAL TREATMENT COUNSELOR: ALEXANDRA Lindquist-CANESTHESIA: General endotracheal anesthesia.HISTORY OF PRESENT ILLNESS: The patient is a 76-year-old female whopreviously underwent a bilateral medial thigh crescent lift. Sheunfortunately suffered wound separations and dehiscence with a largedepression on the cephalad most portion of her medial thighbilaterally. She would like to have revision to improve the contourof this section. The risks and benefits of the procedure were discussedwith the patient. She decided to go with the described procedure.PROCEDURE: The patient was marked in the preoperative holding areaincluding the previous medial thigh lift incisions. It did extend intoher buttock area. I did explain to her that I cannot revise the buttocksscar, re-elevate it and locate it into her gluteal crease. She doesunderstand that there will likely be dog ears posteriorly. She doesnot mind that. Her main area of concern of the depressed areas in theanterior medial thighs. The risks and benefits of the procedure werediscussed with the patient. She decided to go with the describedprocedure.The patient was marked in the preoperative holding area including theplanned crescent excisions bilaterally. Then, she was given IVantibiotics brought in the operating room, placed supine on theoperating table and then intubated by Anesthesia without anycomplications. Then she was placed in the lithotomy position andcrescent incisions were marked out with a 0.25% Marcaine withepinephrine. The perineal and abdominal medial thigh area were allprepped and draped in standard surgical fashion and then theelliptical excisions along the crescent lines were made with a 15-bladescalpel. Dissection was taken out with electrocautery down to theunderlying fascia. Then, the skin and subcutaneous tissue as well asScarpa's fascia was elevated off the anterior surface of the adductormuscle bilaterally on the medial thigh to allow elevation and migrationof the medial thigh lift. The excess skin was cut with a 15-bladescalpel and electrocautery in a full-thickness fashion. The totalamount that was removed from the left thigh was 44 g and total amountremoved from the right thigh was 42 g. Once it was completed, thepockets were irrigated with antibiotic irrigation. Hemostasis wasobtained with electrocautery. Then, 10-Moldovan drains were placed intothe wound secured with 4-0 nylon suture to the skin. Then the Scarpafascia from the medial thighs bilaterally were anchored to the pubicsymphysis as was the Colles' fascia cephalad on both sides using #1Polysorb suture in a simple interrupted fashion. Once this wascompleted, hemostasis was obtained with electrocautery and then #1Polysorb and 0 Polysorb suture were used in a simple interruptedfashion to reapproximate the deeper subcutaneous tissue and dermis, and then a running subcuticular 3-0 Biosyn suture were used to reapproximatethe skin. Then benzoin Steri-Strips were applied to the incisionsbilaterally. The skin flaps were healthy with good capillary refilland no evidence of congestion. There were no signs of seromas andhematomas and the drains had a good seal. The patient was placed intoa sterile compressive dressing and then brought out from anesthesia,then transferred in stable condition to recovery room. There were nocomplications. Sponge, needle, instrument counts were correct at the endof the case.German Salcedo M.D.Plastic SurgeryJR:[id number]: 03/18/2017 08:54:51T: 03/18/2017 13:40:34Job #: [id number] [facility] PROGRESSon 03-17-2017 PROGRESS HNO ID: [id number] thor: Juana (Rn) STARR Dueñaservice: NursingAuthor Type: Registered NurseType: Progress NotesFiled: 03/17/2017 1:22 PMNote Text:Patient to PACU at this time. Hypertensive, so Dr Macias notified. Noorders received, will continue to monitor.1300: Drain instructions given to patient and friend with handouts anddrain log. [facility] NURSING PROGon 07-03-2017 NURSING PROG HNO ID: [id number] Author: Kendal (Rn) COSTA King Service: Neurosurgery Author Type: Registered Nurse Type: Nursing Progress Note Filed: 03/15/2017 8:11 AM Note Text: 03-12-17 PACC completed. No new labs ordered. Radha King RN [facility] Vital Signs Date Time Vital Sign Value Performing Clinician Facility 04-09-2023 19:29-0400 Diastolic blood pressure 65 mm[Hg] [facility] 04-09-2023 19:29-0400 Heart rate 69 /min [facility] 04-09-2023 19:29-0400 Respiratory rate 17 /min [facility] 04-09-2023 19:29-0400 SaO2% (BldA) [Mass fraction] 98 % [facility] 04-09-2023 19:29-0400 Systolic blood pressure 171 mm[Hg] [facility] 04-09-2023 17:28-0400 Body temperature 97.5 [degF] [facility] 04-09-2023 16:58-0400 Body height 162.56 cm [facility] 04-09-2023 16:58-0400 Body mass index (BMI) [Ratio] 28.7 kg/m2 [facility] 04-09-2023 16:58-0400 Body weight 75.84 kg [facility] 01-20-2023 14:11-0400 Body temperature 97.81 [degF] Shannan Vikas ELECTROENCEPHALOGRAM TECHNOLOGIST Work Phone: [facility] 01-20-2023 14:11-0400 Diastolic blood pressure 70 mm[Hg] Shannan Vikas ELECTROENCEPHALOGRAM TECHNOLOGIST Work Phone: [facility] 01-20-2023 14:11-0400 Heart rate 75 /min Shannan Vikas ELECTROENCEPHALOGRAM TECHNOLOGIST Work Phone: [facility] 01-20-2023 14:11-0400 Respiratory rate 18 /min Shannan Vikas ELECTROENCEPHALOGRAM TECHNOLOGIST Work Phone: [facility] 01-20-2023 14:11-0400 SaO2% (BldA) [Mass fraction] 97 % Shannan Vikas ELECTROENCEPHALOGRAM TECHNOLOGIST Work Phone: [facility] 01-20-2023 14:11-0400 Systolic blood pressure 120 mm[Hg] Shannan Vikas ELECTROENCEPHALOGRAM TECHNOLOGIST Work Phone: [facility] 01-15-2023 09:00-0400 Body temperature 97.2 [degF] Kaelyn HalteosatinderElaine PT Work Phone: [facility] 01-15-2023 09:00-0400 Diastolic blood pressure 74 mm[Hg] Kaelyn Blake PT Work Phone: [facility] 01-15-2023 09:00-0400 Heart rate 83 /min Kaelyn Blake PT Work Phone: [facility] 01-15-2023 09:00-0400 Respiratory rate 18 /min Kaelyn Hayden PT Work Phone: [facility] 01-15-2023 09:00-0400 SaO2% (BldA) [Mass fraction] 99 % Kaelyn HalteosatinderElaine PT Work Phone: [facility] 01-15-2023 09:00-0400 Systolic blood pressure 164 mm[Hg] Kaelyn Halteosatinder-Nuñez PT Work Phone: [facility] 01-07-2023 10:15-0400 Body temperature 97.59 [degF] Shannan Vikas ELECTROENCEPHALOGRAM TECHNOLOGIST Work Phone: [facility] 01-07-2023 10:15-0400 Diastolic blood pressure 60 mm[Hg] Shannan Vikas ELECTROENCEPHALOGRAM TECHNOLOGIST Work Phone: [facility] 01-07-2023 10:15-0400 Heart rate 71 /min Shannan Vikas ELECTROENCEPHALOGRAM TECHNOLOGIST Work Phone: [facility] 01-07-2023 10:15-0400 Respiratory rate 18 /min Shannan Vikas ELECTROENCEPHALOGRAM TECHNOLOGIST Work Phone: [facility] 01-07-2023 10:15-0400 SaO2% (BldA) [Mass fraction] 97 % Shannan Vikas ELECTROENCEPHALOGRAM TECHNOLOGIST Work Phone: [facility] 01-07-2023 10:15-0400 Systolic blood pressure 114 mm[Hg] Shannan Bean ELECTROENCEPHALOGRAM TECHNOLOGIST Work Phone: [facility] 01-01-2023 10:01-0400 Body temperature 98.1 [degF] Kaelyn LaceyteoFrederic PT Work Phone: [facility] 01-01-2023 10:01-0400 Diastolic blood pressure 68 mm[Hg] Kaelyn Halteosatinder-Nuñez PT Work Phone: [facility] 01-01-2023 10:01-0400 Heart rate 77 /min Kaelyn Halteosatinder-Nuñez PT Work Phone: [facility] 01-01-2023 10:01-0400 Respiratory rate 16 /min Kaelynconstantin Melton-Nuñez PT Work Phone: [facility] 01-01-2023 10:01-0400 SaO2% (BldA) [Mass fraction] 99 % Kaelyn Blake PT Work Phone: [facility] 01-01-2023 10:01-0400 Systolic blood pressure 150 mm[Hg] Kaelyn Melton-Nuñez PT Work Phone: [facility] 12-30-2022 12:04-0400 Diastolic blood pressure 76 mm[Hg] Becky Mickierigo PT Work Phone: [facility] 12-30-2022 12:04-0400 Heart rate 74 /min Becky Giffels PT Work Phone: [facility] 12-30-2022 12:04-0400 Respiratory rate 20 /min Becky Giffels PT Work Phone: [facility] 12-30-2022 12:04-0400 SaO2% (BldA) [Mass fraction] 94 % Becky Giffels PT Work Phone: [facility] 12-30-2022 12:04-0400 Systolic blood pressure 140 mm[Hg] Becky Giffels PT Work Phone: [facility] 12-30-2022 11:42-0400 Body temperature 97.81 [degF] Becky Lai PT Work Phone: [facility] 12-11-2022 14:59-0400 Body height 160 cm Pacc 1 Work Phone: [facility] 12-11-2022 14:59-0400 Body temperature 97.59 [degF] Pacc 1 Work Phone: [facility] 12-11-2022 14:59-0400 Body weight 77.11 kg Pacc 1 Work Phone: [facility] 12-11-2022 14:59-0400 Diastolic blood pressure 60 mm[Hg] Pacc 1 Work Phone: [facility] 12-11-2022 14:59-0400 Heart rate 76 /min Pacc 1 Work Phone: [facility] 12-11-2022 14:59-0400 Respiratory rate 14 /min Pacc 1 Work Phone: [facility] 12-11-2022 14:59-0400 SaO2% (BldA) [Mass fraction] 95 % Pacc 1 Work Phone: [facility] 12-11-2022 14:59-0400 Systolic blood pressure 118 mm[Hg] Pacc 1 Work Phone: [facility] 12-02-2022 10:50-0400 Body height 162.56 cm [facility] 07-17-2022 08:51-0400 Body height 162.6 cm Sorin Cooley MD Work Phone: [facility] 07-17-2022 08:51-0400 Body weight 75.3 kg Sorin Cooley MD Work Phone: [facility] Encounters Encounter Date Encounter Type Care Provider Facility Start: 02-01-2025 End: 02-01-[address] Geo Gonzalez MD Work Phone: [facility] Work Phone: Start: 02-01-2025 End: 02-01-[address] Geo Gonzalez MD -Laboratory [facility] Start: 02-01-2025 End: 02-01-2025 ambulatory Geo Gonzalez Facility:[facility] Start: 12-01-2024 End: 12-01-[address] Geo Gonzalez MD Work Phone: [facility] Work Phone: Start: 12-01-2024 End: 12-01-[address] Geo Gonzalez MD -Radiology, [place] Work Phone: Start: 12-01-2024 End: 12-01-2024 ambulatory Geo Gonzalez Facility:[facility] Start: 10-16-2024 End: 10-16-[address] Geo Gonzalez MD -Laboratory, [facility] Start: 10-16-2024 End: 10-16-2024 ambulatory Geo Gonzalez Facility:[facility] Start: 03-06-2024 End: 03-06-2024 ambulatory Geo Gonzalez Facility:[facility] Start: 12-04-2023 End: 12-04-2023 ambulatory [facility] Work Phone: Start: 12-04-2023 End: 12-04-2023 Patient encounter procedure [facility]-Laboratory Work Phone: Start: 09-09-2023 End: 09-09-2023 ambulatory [facility] Work Phone: Start: 09-09-2023 End: 09-09-2023 Patient encounter procedure [facility] Work Phone: Start: 06-29-2023 End: 06-29-2023 Patient encounter procedure [facility] Start: 04-27-2023 End: 04-27-2023 ambulatory GEO GONZALEZ Facility:[facility] Start: 04-09-2023 End: 04-09-2023 Emergency department patient visit [facility]-Emergency Department Work Phone: Start: 04-09-2023 End: 04-09-2023 ambulatory [facility] Work Phone: Start: 04-09-2023 End: 04-09-2023 Discharged Recurring [facility]-Physical Therapy Work Phone: Start: 04-09-2023 Registered Recurring [facility]-Physical Therapy Work Phone: Start: 03-30-2023 End: 03-30-2023 ambulatory GEO GONZALEZ Facility:[facility] Start: 03-30-2023 End: 03-30-2023 Patient encounter procedure Dheeraj Grater SLITTER CREASER SLOTTER HELPER.SPECIAL PROJECTS MANAGER Work Phone: Orthopaedics Comment on above: Status post left kne e replacement (Primary Dx); Arthrofibrosis of knee joint, left Start: 03-22-2023 End: 03-22-2023 ambulatory [facility] Facility:[facility] Start: 03-19-2023 Orders Only Dheeraj Grater SLITTER CREASER SLOTTER HELPER.SPECIAL PROJECTS MANAGER Work Phone: Orthopaedics Comment on above: Arthrofibrosis of kn ee joint, left (Primary Dx) Start: 03-18-2023 End: 03-18-2023 ambulatory DHEERAJ GRATER Facility:[facility] Start: 03-18-2023 End: 03-18-2023 Patient encounter procedure Dheeraj Grater SLITTER CREASER SLOTTER HELPER.SPECIAL PROJECTS MANAGER Work Phone: Orthopaedics Comment on above: Arthrofibrosis of kn ee joint, left (Primary Dx); Status post left knee replacement Start: 02-26-2023 End: 02-26-2023 ambulatory [facility] Work Phone: Start: 02-26-2023 End: 02-26-2023 Patient encounter procedure [facility] Start: 02-18-2023 End: 02-18-2023 ambulatory [facility] Facility:[facility] Start: 01-20-2023 End: 01-20-2023 Home visit Shannan Bean ELECTROENCEPHALOGRAM TECHNOLOGIST Work Phone: [facility] Comment on above: ELECTROENCEPHALOGRAM TECHNOLOGIST ROUTINE Start: 01-15-2023 End: 01-15-2023 Home visit Kaelyn Blake PT Work Phone: [facility] Comment on above: PT REASSESSMENT Start: 01-14-2023 End: 01-14-2023 ambulatory DHEERAJ LANDA Facility:[facility] Start: 01-14-2023 End: 01-14-2023 Patient encounter procedure Dheeraj Cordell SLITTER CREASER SLOTTER HELPER.SPECIAL PROJECTS MANAGER Work Phone: Orthopaedics Comment on above: Status post left kne e replacement (Primary Dx) Start: 01-14-2023 End: 01-14-2023 Subsequent hospital visit by physician [facility] Work Phone: Radiology Comment on above: Chronic pain of left knee [M25.562, G89.29] Start: 01-12-2023 Telephone encounter Kaelyn Blake PT Work Phone: [facility] Comment on above: Home Care (Out patie nt PT ) Start: 01-07-2023 End: 01-07-2023 Home visit Shannan Bean ELECTROENCEPHALOGRAM TECHNOLOGIST Work Phone: [facility] Comment on above: ELECTROENCEPHALOGRAM TECHNOLOGIST ROUTINE Start: 01-05-2023 Telephone encounter Kaelyn Blake PT Work Phone: [facility] Comment on above: Home Care (Dressing removal ) Start: 01-01-2023 End: 01-01-2023 Home visit Kaelyn Blake PT Work Phone: [facility] Comment on above: PT ROUTINE Start: 12-30-2022 End: 12-30-2022 Orders Only Dheerajrajesh Connellr SLITTER CREASER SLOTTER HELPER.SPECIAL PROJECTS MANAGER Work Phone: Orthopaedics Comment on above: Chronic pain of left knee (Primary Dx) PT SOC Start: 12-28-2022 End: 12-29-2022 ambulatory GONZÁLEZ YOUNGER Facility:[facility] Start: 12-22-2022 End: 12-22-2022 ambulatory GEO GONZALEZ Facility:[facility] Start: 12-22-2022 Encounter for other preprocedural examination GEO GONZALEZ [facility] Start: 12-11-2022 End: 12-11-2022 Admission to establishment [facility] Work Phone: [facility] Start: 12-11-2022 End: 12-12-2022 ambulatory [place] [id number] Work Phone: Pre Anesthesia Comment on above: Pre-operative examin ation (Primary Dx); Murmur; Essential hypertension, benign; Hypercholesteremia; Gastroesophageal reflux disease, unspecified whether esophagitis present; History of right knee joint replacement; History of right hip replacement; Class 1 obesity due to excess calories with serious comorbidity and body mass index (BMI) of 30.0 to 30.9 in adult Start: 12-11-2022 End: 12-11-2022 Preprocedural examination done [place] [id number] Work Phone: Pre Anesthesia Start: 12-08-2022 Orders Only Brennan Eddy Work Phone: Orthopaedics Comment on above: Primary osteoarthrit is of left knee (Primary Dx) Pre-Op Teaching Start: 12-02-2022 End: 12-02-2022 ambulatory [facility] Work Phone: Start: 12-02-2022 End: 12-02-2022 Patient encounter procedure [facility]-Outpatient Bone Densitometry Start: 11-16-2022 End: 11-16-2022 ambulatory [facility] Work Phone: Start: 11-16-2022 End: 11-16-2022 Patient encounter procedure [facility] Start: 08-18-2022 End: 08-18-2022 ambulatory DAVID SANTANA Facility:[facility] Start: 08-18-2022 End: 08-18-2022 Patient encounter procedure Brennan Monsivais MD Work Phone: Orthopaedics Comment on above: Arthritis of knee (P rimary Dx) Start: 07-17-2022 End: 07-17-2022 ambulatory SORIN COOLEY Facility:[facility] Start: 07-17-2022 End: 07-17-2022 Patient encounter procedure Sorin Cooley MD Work Phone: Orthopaedics Comment on above: Arthritis of knee (P rimary Dx) Start: 07-17-2022 End: 07-17-2022 Subsequent hospital visit by physician [facility] Mike Bonner Work Phone: Radiology Comment on above: Left knee pain, unsp ecified chronicity [M25.562] Start: 02-06-2022 End: 02-06-2022 Patient encounter procedure [facility]-Cardiovascula r Services Start: 12-31-2021 End: 12-31-2021 Discharged Recurring [facility]-Physical Therapy Start: 11-19-2021 End: 11-19-2021 Patient encounter procedure [facility]-Radiology, [place] Start: 01-12-2018 Ambulatory David Santana Facility:[facility] Start: 08-27-2017 End: 08-28-2017 Ambulatory DAVID SANTANA Facility:[id number] Start: 03-17-2017 [facility] Procedures Date Procedure Procedure Detail Performing Clinician Start: 12-01-2024 X-ray of lumbosacral spine Dr. Geo Gonzalez MD Work Phone: Start: 12-01-2024 X-ray of unilateral ribs, two views without x-ray of chest Dr. Geo Gonzalez MD Work Phone: Start: 10-16-2024 Measurement of renal function Dr. Geo Gonzalez MD Work Phone: Comment on above: GFR Calc Start: 04-09-2023 CT cervical spine wi thout contrast Start: 04-09-2023 CT of head without contrast Start: 01-14-2023 Radiologic examinati on knee 3 views Dheeraj Landa APRN.SPECIAL PROJECTS MANAGER Work Phone: Start: 12-11-2022 Antibody screen GEO NUNES Comment on above: Order Comment: Speci men Type: BLOOD SPECIMENOrdering Facility: [facility] Address: [address] [place] [id number] Performed By: #### T [id number] ####CC MAIN BLOOD BANKCLIA [id number] [address] [place] [address] [place] Start: 12-11-2022 Ecg routine ecg w/le ast 12 lds i&r only [facility] Provider Start: 12-11-2022 History of operative procedure on knee History of right knee joint replacement [facility] Work Phone: Start: 12-02-2022 Dual energy X-ray absorptiometry Start: 07-17-2022 Radiologic exam knee complete 4/more views Sorin Cooley MD Work Phone: Start: 11-19-2021 X-ray of lumbosacral spine Plan of Treatment Date Care Activity Detail Author Start: 12-29-2025 DIABETES SCREEN DIABETES SCREEN [facility] Start: 12-29-2025 Diabetes Screening Diabetes Screenin g [facility] Start: 12-11-2025 DIABETES SCREEN DIABETES SCREEN [facility] Start: 05-14-2024 Covid-19 Vaccine () Covid-19 Vaccine () [facility] Start: 05-14-2024 Influenza vaccination Influenza Vacc ine (#1) [facility] Start: 09-13-2023 Advance Directive Discussion Advance Directive Discussion [facility] Start: 05-14-2023 Influenza vaccination [facility] Start: 12-11-2022 End: 02-10-2023 Ferritin [Mass/volume] in Serum or Plasma FERRITIN BLD Lab Routine Pre-operative examination Expected: 12/11/2022, Expires: 02/10/2023 [facility] Work Phone: Comment on above: Expected: 12/11/2022 , Expires: 02/10/2023 Start: 12-11-2022 End: 02-10-2023 Iron and Iron binding capacity panel - Serum or Plasma IRON + TIBC Lab Routine Pre-operative examination Expected: 12/11/2022, Expires: 02/10/2023 [facility] Work Phone: Comment on above: Expected: 12/11/2022 , Expires: 02/10/2023 Start: 12-11-2022 End: 02-10-2023 TYPE AND SCREEN,30 DAY [facility] Work Phone: Comment on above: Expected: 12/11/2022 , Expires: 02/10/2023 Start: 09-13-2022 ADVANCE DIRECTIVE DISCUSSION ADVANCE DIRECTIVE DISCUSSION [facility] Start: 09-13-2022 [facility]PRESSION [facility]MENT [facility] Start: 05-14-2022 Influenza vaccination INFLUENZA (#1) [facility] Start: 09-13-2021 ADVANCE DIRECTIVE DISCUSSION ADVANCE DIRECTIVE DISCUSSION [facility] Start: 09-13-2021 DEPRESSION ASSESSMENT DEPRESSION ASS ESSMENT [facility] Start: 03-27-2021 Urine microalbumin profile [facility] Start: 03-05-2021 COVID-19 VACCINE (3 - Booster for Pfizer series) COVID-19 VACCINE (3 - Booster for Pfizer series) [facility] Start: 03-05-2021 COVID-19 VACCINE (3 - Pfizer series) COVID-19 VACCINE (3 - Pfizer series) [facility] Start: 12-01-2014 DIABETES SCREEN DIABETES SCREEN [facility] Start: 2013 RSV Vaccine (1 - 1-d ose 75+ series) RSV Vaccine (1 - 1-dose 75+ series) [facility] Start: 03-27-2012 Pneumococcal Vaccine : 65+ (2 of 2 - PCV) Pneumococcal Vaccine: 65+ (2 of 2 - PCV) [facility] Start: 03-27-2012 PNEUMOCOCCAL: 65+ (2 - PCV) PNEUMOCOCCAL: 65+ (2 - PCV) [facility] Start: 1988 SHINGRIX VACCINE (1 of 2) CUELLAR GRIX VACCINE (1 of 2) [facility] Start: 1956 Anxiety Screening Anxiety Screening [facility] Start: 1958 Depression Screening Depression Scre ening [facility] End: 12-12-2023 ECG COMPLETE ECG COMPLETE ECG Routine Pre-operative examination 1 Occurrences starting 12/11/2022 until 12/12/2023 [facility] Work Phone: Comment on above: 1 Occurrences starti ng 12/11/2022 until 12/12/2023 ECG COMPLETE ECG COMPLETE ECG 12/11/2022 3:10 PM EDT [facility] End: 12-12-2023 Echocardiography ECHO Cardiology Routine Pre-operative examination 1 Occurrences starting 12/11/2022 until 12/12/2023 [facility] Work Phone: Comment on above: 1 Occurrences starti ng 12/11/2022 until 12/12/2023 Patient Education ED Concussion ED Scalp Contusion ED Head Injury (Adult) [facility] Work Phone: Patient referral [facility] Work Phone: End: 01-30-2024 XR KNEE POST OP 3V AP/LAT/MERCHANT LEFT XR KNEE POST OP 3V AP/LAT/MERCHANT LEFT Radiology Routine Chronic pain of left knee 1 Occurrences starting 12/31/2022 until 01/30/2024 [facility] Work Phone: Comment on above: 1 Occurrences starti ng 12/31/2022 until 01/30/2024 [facility] Immunizations Immunization Date Immunization Notes Care Provider Fa cility 01-08-2021 Covid (Pfizer) [facility] 12-18-2020 Covid (Pfizer) [facility] 03-27-2011 diphtheria and tetan us toxoids, adsorbed for pediatric use Sorin Cooley MD Work Phone: [facility] 03-27-2011 pneumococcal polysaccharide vaccine, 23 valent Sorin Cooley MD Work Phone: [facility] Payers Date Payer Category Payer Private Health Insurance [id number] 2024 Self-pay [id number] 2021 Medicare [id number] 2021 Medicare HUMANA MEDICARE HUMANA MEDICARE PPO [id number] 2021-Present [phone] [address] [address] [place] [address] PPO [id number] Medicare [id number] Unknown [id number] Unknown [id number] Unknown [id number] Unknown [id number] Unknown [id number] Unknown [id number] Social History Date Type Detail Facility Start: 05-20-2018 End: 04-09-2023 Tobacco smoking status MOIS Unknown if ever smoked [facility] Start: 1940 Sex Assigned At Female [facility] Start: 07-17-2022 End: 04-09-2023 Tobacco smoking status MOIS Never smoked tobacco [facility] Start: 07-17-2022 Tobacco use and exposure Smokeless tobacco non-user [facility] Start: 07-17-2022 End: 12-11-2022 Alcohol intake Current drinker of alcohol (finding) [facility] Start: 07-17-2022 [facility] Start: 03-27-2011 [facility] Start: 1940 Sex Assigned At Not on file [facility] Start: 07-07-2022 End: 07-17-2022 Exposure to SARS-CoV-2 (event) Not sure [facility] Start: 07-17-2022 End: 12-11-2022 History of Social function [facility] Start: 07-17-2022 End: 12-11-2022 Tobacco use panel [facility] National Score (1-100), lower number is lower risk 72 [facility] Start: 03-27-2025 Sex Female (finding) [facility] [facility] Medical Equipment Procedure Code Equipment Code Equipment Origin al Text Equipment Identifier Dates Head Fem +5mm 07/26 36mm Hip - [id number] Start: 11-30-2011 Comment on above: Description: PEMA YANCEY METAL ON METAL FEMORAL HEAD Screw Bn 6.5mm 25mm Pinn Canc - [id number] Start: 11-30-2011 Comment on above: Description: PINNACL E CANCELLOUS BONE SCREW Cement Simplex P Bone Radiopaque Full Dose Sterile - [id number] Start: 12-28-2022 Insert Triathlon 4 9mm Tibial Bearing Condylar Stabilize Sterile Knee - [id number] Start: 12-28-2022 Component Triathlon 32mm 10mm Patellar Asymmetric Knee - [id number] Start: 12-28-2022 Baseplate Triathlon 4 Tibial Primary Cement Knee - [id number] Start: 12-28-2022 Cement Simplex P Bone Radiopaque Full Dose Sterile - [id number] Start: 12-28-2022 Cup Actb 52mm Pi nn Sect Srs - [id number] Start: 11-30-2011 Comment on above: Description: PINNACL E GRIPTION ACETABULAR SHELL SECTOR Liner Actb Altrx Neut 52mm 36 - [id number] Start: 11-30-2011 Comment on above: Description: PINNACL E ALTRX POLYETHYLENE ACETABULAR LINER NEUTRAL Stem Fem 12mm Cmntls Clrls Crl - [id number] Start: 11-30-2011 Comment on above: Description: CORAIL FEMORAL STEM WITHOUT COLLAR Component Triathlon 5 Femoral Cruciate Retain Cemented Knee Left - [id number] Start: 12-28-2022 Clinical Notes 09-27-2013 to 12-01-2024 Note Date & Type Note Facility 12-01-2024 Radiology Diagnostic study note [facility] Imaging Services [address] [place], [place] [id number] Ribs Unil 2V No CXR MR#: [id number] Acct: [id number] Name: RADHA GLOVER Rep #: [id number] : 1940 F 84 From: Mita Yañez MD PCP: Dr. Geo Gonzalez MD Status: REG Cathleen HUGO Study:Ribs Unil 2V No CXR Date of Exam: 12/01/24 Exam# [id number] Ordering Dr: Geo Gonzalez MD PROCEDURE: RIBS UNIL 2V NO CXR 12/01/2024 REASON FOR EXAM: RIB PAIN TECHNIQUE: Frontal and oblique views of the RIGHT ribs were obtained. COMPARISON: 05/20/2018; note that images only are available for review, the report is not available at the time of the dictation. FINDINGS: Demineralization without definite acute displaced RIGHT rib fracture. No definite RIGHT pneumothorax Lumbar spondylosis better depicted on separately dictated lumbar spinal radiographs. Advanced aortic atherosclerosis and tortuosity. Suspect RIGHT basilar airspace disease. RAD/Ribs Unil 2V No CXR IMPRESSION: 1. Demineralization without definite acute displaced RIGHT rib fracture identified. No definite RIGHT pneumothorax. 2. Suspected RIGHT basilar airspace disease, suboptimally evaluated. Correlate for pneumonia and recommend follow-up to radiographic resolution with PA and lateral chest radiographs, if not CT. Comparison with any available outside imaging may also be helpful. 3. Additional description as above. Reading Location: [id number] CC: Dr. Geo Gonzalez MD ~ Flower Cheniller: Signed [facility] 12-01-2024 Radiology Diagnostic study note [facility] Imaging Services [address] [place] [id number] L/S Spine Min 4 Views MR#: [id number] Acct: [id number] Name: RADHA GLOVER Rep #: [id number] : 1940 F 84 From: Mita Yañez MD PCP: Dr. Geo Gonzalez MD Status: ALEYDA HUGO Study:L/S Spine Min 4 Views Date of Exam: 12/01/24 Exam# [id number] Ordering Dr: Geo Gonzalez MD PROCEDURE: L/S SPINE MIN 4 VIEWS (RADSPLS), 12/01/2024 REASON FOR EXAM: BACK PAIN TECHNIQUE: AP, lateral, and bilateral oblique views of the lumbar spine were obtained. COMPARISON: None FINDINGS: Exam limited by soft tissue attenuation, demineralization, and scoliotic deformity, limiting the planes of imaging as well as fine bony detail. Fracture/dislocation: None definitely identified within limits. Vertebral body heights: Relatively preserved within limits. Alignment: Lumbar dextroscoliosis. Mild grade 1 retrolisthesis at L3-L4. Disc spaces: Variable disc height loss up to severe with osteophytes and endplate sclerosis. Facets: Suspect facet arthropathy greatest at L4-S1. Soft tissues: Atherosclerosis. Presumed pelvic phleboliths. Calculi project over the RIGHT upper quadrant may reflect gallstones or renal calculi or may be intraluminal within superimposed bowel. Advanced atherosclerosis with aortoiliac tortuosity. Foreign bodies: None visible. Bone mineralization: Demineralization. Other: Partially imaged RIGHT hip arthroplasty. RAD/L/S Spine Min 4 Views IMPRESSION: 1. Demineralization without visible acute displaced fracture within above limitations. If there is persistent concern, recommend CT. 2. Advanced multilevel spondylosis and additional description as above. This could be further delineated by MRI as indicated. Reading Location: [id number] CC: Dr. Geo Gonzalez MD ~ Flower Cheniller: Signed [facility] 05-24-2023 Discharge summary Note Date/Time May 24, 2023 7:20am [facility] Physical Therapy [facility] [address] [place] [address]. [address] [place] [address] / REHABILITATION SERVICES DISCHARGE SUMMARY MR#: [id number] Acct: [id number] Name: RADHA GLOVER Rep #: [id number] : 1940 82 From: Devon Lugo DPT, OCS, CSCS Referring : OUT OF TOWN DOCTOR Status: REG RCR Insurance: HUMANA MEDICARE PPO SELF PAY INSURANCE Discharge Summary D/C summary: It has been my pleasure to treat RADHA GLOVER referred by DHEERAJ LANDA, with the diagnosis of L knee stiffness s/p TKA for a total of 10 visit(s). Discharge Date: Please see the following information for a summary of their discharge status. Subjective Subjective: Pt states she is doing well - no pain, but states she has more muscle soreness in both legs. Mostly compliant with HEP. States she wants to make today her last session. Overall Improvement % Improvement: 100 Objective Objective/Function: Pt conts to do very well in therapy. States she has no ADL or functional limitations because of her knee. States she wants to make today her last session. Reviewed what she is doing at home and advised to cont. LEFS filled out, % improvement captured (100%), and final ROM taken (0-121 degrees). Goals Goal 1:: 0-105 AROM to improve stair and chair trasnfers. Goal 2:: Patient I in management of condition. Plan Plan: Pt wishes to d/c at this time. Reviewed what she is doing at home and advised to cont. Plans to cont her gym program here 3x/week. LEFS filled out, % improvement captured (100%), and final ROM taken (0-121 degrees). D/C Information d/c sentence: If there are questions or concerns regarding this patient's physical therapy, please feel free to call me at [phone]. Thank you for the referral of thispatient. Sincerely, Devon Lugo, JACEK, OCS, CSCS Balance/Gait/Functional tests Balance/Special Test Scores Functional Gait Assessment Score: 27 % Disability: 10.0000 Lower Extremity Functional Score: 60 Improvement % Improvement: 100 <Electronically signed by Devon Lugo DPT, OCS, CSCS> 05/24/23 0720 CC: Dr. Geo Gonzalez MD; DHEERAJ LANDA ~ EBG Signed [facility] Work Phone: 1(122) 427-213408-15-2023 NoteHNO ID: [id number] Author: Dheeraj Landa APRN.SPECIAL PROJECTS MANAGER Service: ? Author Type: Nurse Practitioner Type: Progress Notes Filed: 04/27/2023 10:11 AM Note Text: This is a follow up appointment for Radha. 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 She reports she is doing well overall. She has no pain. She reports some swelling. Her last ROM was 120. She has no concerns today. Physical exam demonstrates well healed incision. Mild swelling. ROM is 0-120. Ligamentous exam is stable. Radha is 4.5 months out and doing well. She will follow up in with us at 1 year. All questions answered. Dheeraj Landa APRN.SPECIAL PROJECTS MANAGER [facility]28-2023 Discharge summary Author Lesley Walker [facility] April 09, 2023 7:14pm Note Date/Time April 09, 2023 5:40 pm [facility] Medical Records Department [address] [place] [address] Emergency Department Summary 04/09/23 MR#: [id number] Acct: [id number] Name: RADHA GLOVER Rep #:[id number] : 1940 82 From: Lesley Price PCP: Dr. Geo Gonzalez MD Status:REG E R Location: ED HPI History of Present Illness Chief Complaint: Head Injury Informant: patient and family Narrative Narrative: Patient is 82-year-old female with history of hypertension, hyperlipidemia and left knee replacement 2 months ago presenting with a head injury. Patient was taking a nap when she must of rolled out of bed per her daughter and struck her head on the nightstand. She is complaining of pain and swelling to the back of her head as well as some neck pain/shoulder pain. Patient states the fall woke her up and does not think she loss of conscious. Daughter just arrived to the house when this happened. There was no prolonged immobilization she was able toget herself up. She is not on any blood thinners. Daughter does note she is a little unsteady when she got up. She brought her to the emergency room for further evaluation. Patient not have any history of any prior head injuries. Put ice on it prior to arrival but did not take anything for pain. Not complainof any vision changes, numbness or tingling. No speech changes reported. Patient is hard of hearing. No other complaints or concerns at this time. [facility] Medical History Back pain Knee pain Home Medications atorvastatin 20 mg tablet 20 mg PO QHS 05/20/18 [History Last Taken 05/19/18] losartan 100 mg-hydrochlorothiazide 25 mg tablet 1 ea PO DAILY 05/20/18 [History Last Taken 05/20/18] Allergy/AdvReac Type Severity Reaction Status Date / Time codeine AdvReac Nausea/Vom/ Verified 04/09/23 16:58 Diarrhea Social History Smoking Status: Never smoker ROS ROS ED Constitutional Constitutional ED: Denies chills or fever(s) Eyes Eyes: Denies blurry vision or change in vision ENT ENT ED: Denies ear pain or rhinorrhea Gastrointestinal Gastrointestinal: Denies nausea or vomiting Musculoskeletal Musculoskeletal: Reports neck pain and other Details: right shoulder pain Integumentary Reports Abrasions Neurologic Neurologic: Reports headache(s); Denies paresthesias or weakness Psychiatric Psychiatric: Denies anxiety Hematologic/Lymphatic Hematologic/Lymphatic: Denies easy bleeding or easy bruising EXAM Physical Exam Const Vital Signs: 04/09/23 16:58 04/09/23 17:28 04/09/23 17:33 Temperature 97.1 F L 97.5 F L Temperature Source Temporal Pulse Rate 82 81 Respiratory Rate 19 H 18 Respiratory Effort Normal Non-Labored Respiratory Depth Normal Respiratory Pattern Normal Blood Pressure 192/80 H 171/64 H Blood Pressure Mean 117 99 Pulse Ox 97 96 94 Oxygen Delivery Method Room Air Room Air Room Air Positive well nourished and well developed General Appearance ED: well developed and NAD HEENT Reports TM's clear HEENT Narrative: No signs of facial trauma. No hemotympanum or signs of a basilar skull fracture. Patient does have 2 areas of hematoma and tenderness to the occipitalscalp. There is no active bleeding or abrasion but there is some associated ecchymosis. Nose: Negative for septum abnormal Tympanic Membrane ED: Yes TM's clear Eyes PERRL and EOMs intact bilaterally Neck full ROM Neck Narrative: No midline tenderness. Mild pain with range of motion. Patient refusing c- collar. Tenderness palpation over the right trapezius region Chest Wall inspection of chest normal Resp normal respiratory effort and clear to auscultation bilaterally Cardio regular rhythm and no murmurs Rate: regular rate GI normal to inspection, nondistended, normoactive bowel sounds Back/Spine normal to inspection and no thoracic nor lumbar tenderness Thoracic Spine / Upper Back: Negative for thoracic spinal tenderness Extremity normal to inspection and full ROM General Extremety ED: Negative for deformity or tenderness General Extremity: Negative for deformity Neuro oriented x3, CN's II-XII intact bilaterally, no focal motor deficits and no sensory deficits noted Lily Coma Scale: document GCS findings Spontaneous Obeys Commands Oriented 15 Sensorium / Orientation: alert Skin Skin Narrative: No active bleeding. 2 small areas of ecchymosis to the posterior scalp MDM MDM MDM Narrative Medical decision making narrative: Patient is evaluated for closed head injury after a fall out of bed. She has nofocal neurologic deficits. She does have ecchymosis and cephalhematoma to the parietal occipital scalp on exam. She is complaining of some neck pain and it seems to be more muscle skeletal however due to her age and her significant headinjury will obtain a CT of the brain as well as the cervical spine. Patient is given Tylenol and ice for pain control. Patient is able to ambulate in the emergency room to the bathroom. CT of the brain shows right parietal occipital scalp hematoma but there is no acute intracranial findings or skull fracture. CT of the cervical spine shows no acute fracture. Patient does feel slightly improved while in the emergency room. We discharged home with close head injury/concussion instructions. She does note that she has had some mild instability/gait issues for some time now. Likely this is exacerbated by her recent knee surgery. Is encouraged to follow-up with her primary care doctor and they can discuss physical therapy/balance therapy as well. Patient is comfortable taking Tylenol for pain control at home. Given return precautions. Counseled on signs and symptoms of concussion as well as concussion care. Discharged home in stable condition. Radiography Diagnostic Testing: Clinical Impression(s) from Imaging Studies Brain CT 04/09/23 17:35 IMPRESSION: Right parieto-occipital scalp hematoma. No acute abnormal intracranial finding. Electronically Signed: Geo Luis MD at 18:16 EDT , Cervical Spine CT 04/09/23 17:35 IMPRESSION: No evidence of acute cervical spinal fracture or spondylolisthesis. Electronically Signed: eGo Luis MD at 18:21 EDT , Discharge Plan Triage Chief Complaint: Head Injury ED Provider: Lesley Walker Dx/Rx/DC Orders Instructions: ED Concussion, ED Scalp Contusion, ED Head Injury (Adult) Prescriptions: No Action atorvastatin 20 MG tablet 20 mg PO QHS Patient Comments: losartan-hydrochlorothiazide 1 EACH tablet 1 ea PO DAILY Primary Care Provider: Geo Gonzalez Referrals: Geo Gonzalez MD [Primary Care Provider] - Activity Restrictions/Additional Instructions: Take Tylenol as needed for pain. Use ice for the swelling in the back of your head. Return to the ER if you have worsening symptoms or further concerns/further falls. Disposition Disposition: Home, Self Care What to do if you have Problems For any increased pain, shortness of breath, bleeding, nausea or vomiting, chestpain, or any unexpected problems, contact your Primary Care Provider. Call [facility] ([phone]) or report to the closest Emergency Room. Call 911 if necessary. 04/09/231913 <Electronically signed by Lesley Walker DO> Cosigner Signature (if applicable): CC: Dr. Geo Gonzalez MD ~ Signed [facility] Work Phone: 1(552) 773-825207-18-2023 NoteHNO ID: [id number] Author: Dheeraj Landa APRN.TORO Service: ? Author Type: Nurse Practitioner [...] with repeat x-rays. All questions answered Dheeraj Landa APRN.SPECIAL PROJECTS MANAGER [facility]07-18-2023 History of Present illness Narrative* Dheeraj Landa APRN.CNP - 03/30/2023 12:54 PM EDT Mrs. Glover is following up today for s/p left knee FRANCISCO J with Dr. Monsivais on 03/22/23. Pre-op her motion was 0-95. We were able to flex to about 125 degrees post operatively. She reports she has been going to outpatient PT. Her last appointment was yesterday with PT and reports 113 degrees of flexion.She continues to report no pain. She will continue with PT for the next 3 weeks as well as doing exercises on her own. She will follow up at that time and if things continue to progress her next follow up will be at 1 year post op with repeat x-rays. All questions answered Dheeraj Landa APRN.CNP Orthopaedic Surgery documented in [facility]-2023 NoteHNO ID: [id number] Author: Dheeraj Landa APRN.CNP Service: ? Author Type: Nurse Practitioner [...] back we will get this scheduled. Dheeraj Landa APRN.CNP [facility]07-06-2023 History of Present illness Narrative* Dheeraj Landa APRN.CNP - 03/18/2023 2:52 PM EDT This is a follow up appointment for Mrs. Glover. She was last seen on 02/18/23. She is well known to me having undergone Left TKA on 12/28/22. She continues to do well but does continue to complain of stiffness. She has no pain. She reports she was unable to initially do outpatient PT due to co-pay soshe has been doing PT and exercises on [...] Wednesday03/22/23 or at the latest 03/29/23. Once Ihear back we will get this scheduled. Dheeraj Landa APRN.CNP Orthopaedic Surgery documented in this encounterFirelands [facility]06-09-2023 NoteHNO ID: [id number] Author: Dheeraj Landa APRN.CNP Service: ? Author Type: Nurse Practitioner Type: Progress Notes Filed: 02/19/2023 9:23 AM Note Text: Post-op Office Visit Radha Glover 82 year old February 19, 2023 9:08 AM Surgery Date: 12/28/22 History: Radha Glover Is now 7 weeks out from [...] with cane Incision well-approximated, no drainage, normal faina-incisional erythema ROM 0 - 95 (115 pre-op) Distally DP/PT palpable Distally S/S/SP/DP/T intact at baseline Distally DF/EHL/PF intact at baseline Negative romario/calf tenderness Xrays: No new today Assessment and Plan: Radha Glover Is here for a second post-op [...] new swelling, drainage, shortness of breath Dheeraj Landa APRN.TORO [facility]05-10-2023 Miscellaneous Notes* PT ROUTINE/REASSESSMENT/RECERT/CASE MGMT - Shannan Bean PTA - 01/20/2023 2:03 PM EDT SITUATION: only patient present during today's visit. [...] sec hold. Assisted patient with calling Dr office to request refill of pain meds due [...] summary for intervention/education details. documented in this encounterFirelands [facility]05-05-2023 Miscellaneous Notes* PT ROUTINE/REASSESSMENT/RECERT/CASE MGMT - Kaelyn Blake, PT - 01/15/2023 9:01 AM EDT SITUATION: only patient present during today's visit. patient reports the following since the last homecare visit: medications/allergies--no changes, no fall. patient reports that her dtr went home yesterday after taking her to the doctor. was pleased with her progress but states [...] summary for intervention/education details. documented in this encounterFirelands [facility]05-04-2023 NoteHNO ID: [id number] Author: Dheeraj Landa APRN.CNP Service: ? Author Type: Nurse Practitioner Type: Progress Notes Filed: 01/14/2023 3:18 PM Note Text: Post-op Office Visit Radha Glover 82 year old January 14, 2023 2:57 PM Surgery Date: 12/28/22 History: Radha Glover Is now 2 weeks out from S/P Left TKA. Post-operative course has been without complication. No readmission/complications Subjective: Patient reports continued pain. Overall is doing well. Walker ambulatory aid Oxycodone opioid pain medication Objective: Ambulates with walker Incision well-approximated, no drainage, normal faina-incisional erythema ROM 5 - 95 Distally DP/PT palpable Distally S/S/SP/DP/T intact at baseline Distally DF/EHL/PF intact at baseline Negative romario/calf tenderness Xrays: Well-positioned total knee replacement in appropriate alignment with no evidence of loosening Assessment and Plan: Radha Glover Is here for a first post-op [...] new swelling, drainage, shortness of breath Dheeraj Landa APRN.TORO [facility]05-04-2023 NoteHNO ID: [id number] Author: SPEEDY Doran Service: Radiology Author Type: Technologist Type: Progress Notes Filed: 01/14/2023 1:41 PM Note Text: Radiology Service Progress Note PATIENT NAME: Radha Glover DATE OF SERVICE: January 14, 2023 [...] BY: SPEEDY Doran January 14, 2023 1:40 PM[id number] History of Present illness Narrative* Dheeraj Landa APRN.TORO - 01/14/2023 2:57 PM EDT Post-op Office Visit Radha Glover 82 year old January 14, 2023 2:57 PM Surgery Date: 12/28/22 History: Radha Glover Is now 2 weeks out from S/P Left TKA. Post-operative course has been without complication. No readmission/complications Subjective: Patient reports continued pain. Overall is doing well. Walker ambulatory aid Oxycodone opioid pain medication Objective: Ambulates with walker Incision well-approximated, no drainage, normal faina-incisional erythema ROM 5 - 95 Distally DP/PT palpable Distally S/S/SP/DP/T intact at baseline Distally DF/EHL/PF intact at baseline Negative romario/calf tenderness Xrays: Well-positioned total knee replacement in appropriate alignment with no evidence of loosening Assessment and Plan: Radha Glover Is here for a first post-op [...] new swelling, drainage, shortness of breath Dheeraj Landa APRN.SPECIAL PROJECTS MANAGER Orthopaedic Surgery documented in this encounterFirelands [facility] Medical [facility]05-04-2023 History of Present illness Narrative* Osmel Dueñas CT - 01/14/2023 1:40 PM EDT Radiology Service Progress Note PATIENT NAME: Radha Glover DATE OF SERVICE: January 14, 2023 TIME: 1:40 PM PATIENT IDENTITY VERIFICATION COMPLETED USING TWO (2) IDENTIFIERS: Name and Date of confirmedby patient verbally. FALL SCREENING: Has the patient had 2 falls in the last year or 1 fall with injury or currently using an Ambulatory Assistive Device (Walker, Cane, Wheelchair, Crutches, etc.)? Yes, Patient High Riskfor Falls What interventions were put in place to prevent falls during this visit? Instructed Patient to Remain Seated (Not on Exam Table) Until Exam and Increased Observations by Caregivers PATIENT GENDER DATA: Female. status: : No status: NO. PATIENT RELEVANT IMPLANT DATA REVIEWED: Not Applicable RADIOLOGY DEPARTMENT: General X-ray: Exam(s) Completed: Lower Extremity X- Ray(s): Knee, AP / Lat / Merchant Left and Wt. Bearing PERIPHERAL IV DATA: Not applicable SIGNED BY: SPEEDY Doran January 14, 2023 1:40 PM documented in this encounterFirelands [facility]04-27-2023 Miscellaneous Notes* PT ROUTINE/REASSESSMENT/RECERT/CASE MGMT - Shannan Bean PTA - 01/07/2023 10:10 AM EDT SITUATION: only patient present during today's visit. [...] summary for intervention/education details. documented in this encounterFirelands [facility]04-21-2023 Miscellaneous Notes* PT ROUTINE/REASSESSMENT/RECERT/CASE MGMT - Kaelyn Blake, PT - 01/01/2023 9:01 AM EDT SITUATION: daughter present during today's visit. patient reports the following since the last homecare visit:medications/allergies--no changes, no fall. patient reports she had a pretty good night. its so swollen though. BACKGROUND: Diagnoses (reason for Home Care): M17.12 [...] strength, balance, gait, left knee joint ROM, transfersand bed mobility. Current Discharge Plan: outpatient rehab. Anticipate discharge by 01/16/23. RECOMMENDATION: . Next visit to focus on bandage removal -bed mobility and transfer training / ROM left knee and strengthening for LE / gait training with walker See intervention summary for intervention/education details. documented in this encounterFirelands [facility] Medical [facility]04-19-2023 Miscellaneous Notes* PT SOC/SAI/FOLLOW UP/OTHER - Becky Lai PT - 12/30/2022 11:07 AM EDT SITUATION: daughter present during portion of today's visit. patient and caregiver reports that patient had surgery for left TKA yesterday and was DC home yesterday. She lives in one story apartment alone. Her daughters lives close by and her daughter's friend is also helping with meals / meds. Patient has nopets and her living space is clean and uncluttered. She is typically indep with all ADL and is ableto drive and handle meds indep. BACKGROUND: Diagnoses [...] knee 0-60 degrees AAROM [facility]. Reviewed and explained homecare [...] summary for intervention/education details. documented in this encounterFirelands Regional Medical [facility]04-18-2023 NoteHNO ID: [id number] Author: Mirela Xiong (Licensing Specialist) Service: Pharmacy Author Type: ? Type: Plan of Care Filed: 12/30/2022 11:03 AM Note Text: PHARMACY BEDSIDE DELIVERY SERVICE Patient Name: Radha Glover The marked outpatient medications were Filled at: [facility] and delivered to the patient's bedside to [...] ointment Commonly known as: BACTROBAN Mirela Xiong (Licensing Specialist) PAGER: [phone] December 30, 2022 11:03 AMSelect [facility] [id number] NoteHNO ID: [id number] Author: González Younger MD Service: General Internal Medicine Author Type: Physician Type: Progress Notes Filed: 12/29/2022 9:56 AM Note Text: INPATIENT CONSULT PROGRESS NOTES Patient Name: Radha Glover DATE of SERVICE: 12/29/22 TIME of [...] ?F) Oral (!) 54 16 95 % 12/28/22 2328 135/55 36.6 ?C (97.9 ?F) Temporal Art [...] on any medication Possible discharge today SIGNATURE: González Younger, [id number] NoteHNO ID: [id number] Author: Stephen Hughes PA-C Service: Orthopaedic Surgery Author Type: Physician Nitrocellulose Maker Type: Progress Notes Filed: 12/29/2022 8:05 AM [...] 1500 VTE RISK CATEGORY: SURGICAL HIGH RISK ([place]) Active VTE Medication Orders: Anticoagulant AND Antiplatelet Medications (From admission, onward) Start Dose Route Frequency Last Action Ordered Stop 12/29/22 0900 aspirin, enteric coated 81 mg tab(s) (Surgical Risk Categories) 81 mg ORAL 2 TIMES DAILY Ordered 12/28/22 1457 -- Active VTE Prophylaxis Orders: 12/28/22 1500 PNEUMATIC COMPRESSION STOCKINGS ([place], [place]) 12/28/22 1500 ACTIVITY - MOBILIZE PATIENT ([place], [place]) PHYSICAL EXAMINATION: Left Lower Extremity: Dorsalis [...] results. SIGNATURE: Stephen Hughes PA-C PATIENT NAME: Radha Glover DATE: December 29, 2022 TIME: 8:04 [...] addiction). Patient demonstrated understanding of risks versus benefits.[facility] [id number] NoteHNO ID: [id number] Author: Jack Suárez APRN.CRNA Service: Anesthesiology Author Type: Nurse Tunnel Kiln Firer Type: Anesthesia Procedure Notes Filed: 12/28/2022 11:38 AM Note Text: ANESTHESIOLOGY PROCEDURE NOTE Spinal Block General Information Procedure Start Time/Medication Administration: 12/28/2022 11:18 AM Patient location during procedure: OR Timeout Performed Pre-procedure: timeout performed Consent Obtained: Yes Patient identity confirmed: arm band and patient Reason for Block: primary surgical anesthetic Staffing CHEMICAL PLANT WORKER: Jack Suárez APRN.CHEMICAL PLANT WORKER Performed by: HEATHER Preparation Sterility Preparation: hand hygiene performed prior [...] Assessment Events: tolerated well SIGNATURE: Jack Suárez APRN.CHEMICAL PLANT WORKER PATIENT NAME: Radha Glover DATE: December 28, 2022 TIME: 11:37 AM CSN: [id number] NoteHNO ID: [id number] Author: Batsheva Proctor MD Service: Anesthesiology Author [...] ml SIGNATURE: Batsheva Proctor MD PATIENT NAME: Radha Glover DATE: December 28, 2022 TIME: 10:22 AM CSN: [id number] Instructions* Patient Instructions* Kristine Mason APRN.SPECIAL PROJECTS MANAGER - 12/11/2022 3:15 PM EDT PATIENT PREOPERATIVE INSTRUCTIONS Brennan Monsivais MD has scheduled you for your procedure at this surgery center: [facility]: [phone] -- [address] [facility] [address]. Please read below carefully for your personalized [...] Procedures: - YOU MUST HAVE A RESPONSIBLE GEOMETRY TUTOR TAKE YOU HOME. A DAIRY EQUIPMENT REPAIRER OR WATER CONTROL STATION ENGINEER CANNOT BE MADE A RESPONSIBLE GEOMETRY TUTOR. - We recommend that a responsible person stays with you overnight to take care of you. - You cannot stay in a hotel alone after outpatient surgery. You will not be permitted to have yoursurgery, if you do not have someone to [...] Advance Directive, please fax a copy to [phone] or email to for it to be added to your chart. If you do not have an Advance Directive, you can find the appropriate form and more information at [email or web address]. We recommend that youcomplete the Advance Directive form found on the website and bring it with you the day of your surgery. It can be witnessed and scanned into your chart that day. Kristine Mason APRN.CNP documented in this encounterFirelands [facility]03-31-2023 History and physical note * Kristine Mason APRN.CNP - 12/11/2022 3:06 PM EDT HISTORY AND PHYSICAL EXAMINATION SERVICE DATE: 12/11/2022 SERVICE TIME: 3:44 PM PRIMARY CARE PHYSICIAN: Geo Gonzalez MD REASON FOR VISIT: Radha Glover is a 82 year old female [...] COVID-19 original vaccine, age 12+ yr, monovalent (PFIZER- BIONTECH - PURPLE TOP) 12/18/2020 Imm Admin: COVID-19 original vaccine, age 12+ yr, monovalent (PFIZER- BIONTECH - PURPLE TOP) CHIEF COMPLAINT: Pre-op exam HPI: Radha Glover is a 82 year old seen for PAC due to scheduled above surgery because of OA left knee. 08/28/2022, Dr. Monsivais HPI: Radha Glover is a 81 year old patient here for evaluation and management of left knee pain. Shahab has had progressive problems with the knee(s) most of the day over the past 5 year(s) interfering with activities which include exercise, walking, rising from a sitting position, and standing for prolonged periods of time. The problem began limiting activities 1-3 years ago. Currently the pain in the joint is rated at 6 out of 10 with minimal activity. The pain is constantand is located along the outside aspect, in the front, and in the back. The pain is described as aching. Relieving factors include rest and repositioning. There is no specific incident that brought about this pain. Radha Glover also complains of referred pain, stiffness, and locking. FUNCTIONAL STATUS: Climb a flight of stairs or walk up a hill (5.50 METs) Total Joint Arthroplasty: Risk Calculator Radha Glover has a 35.73% chance of NOT returning home at discharge for a Primary total Knee replacement. Radha's estimated Length of Stay is 2 days. Radha's 30 day chance of readmission is 7.16%. [...] fevers. Neurological: No history of TIA's, stroke, SURVEILLANCE OPERATOR tumor, impaired sensorium, hemiplegia, paraplegia orquadraplegia. No neurological symptoms or problems. Respiratory: No history of current cough or dyspnea, or pneumonia in the past 6 weeks. No history of respiratory/pulmonary symptoms or problems. Cardiovascular: Positive for: hypertension (on rx) Negative for: anticoagulation therapy, arrhythmia, atrial fibrillation, CAD, chest pain, CHF, congenital heart defect, DVT/PE, hyperlipidemia, recent ID, murmur/valvular heart disease, open heart surgery and valve surgery. GI: Positive for: GERD (otc rx as needed) Negative for: abdominal pain, dysphagia, hepatitis, irritable bowel syndrome, inflammatory bowel disease, liver disease, nausea, pancreatitis, vomiting and ETOH >2 drinks/day. : No history of dysuria, frequency or incontinence, stones or chronic kidney disease. No difficulty urinating, nocturia > 1 time per night or hematuria. CONSUMER INSIGHTS INTERN: Negative for abnormal vaginal bleeding, abnormal vaginal discharge. Endocrine: No history of diabetes. Has not taken steroids within the past 30 days. No history of endocrinological symptoms or problems. Hematology: Positive for: chronic anti-coagulation/platelet meds. Patient is on anti- coagulation/platelet medication(s): Aspirin. Negative for: anemia, bruises/bleeds easily [...] of surgery. Medication Comments documented by [place] ([facility]) Swetha Dueñas RN on 10/14/2012 at 0644. [...] 398 QTC Calculation (Bazett) 426 Calculated P [place] -2 Calculated R [place] 26 Calculated T [place] 63 Impression NORMAL SINUS RHYTHM NORMAL ECG No results found for this or any previous visit (from the past 60468 hour(s)). Assessment Patient has the following medical conditions which may affect faina-operative course: Essential hypertension, benign Assessment: controlled on [...] 35 kg/m^2 Non-male patient STOP-Bang Score: 4 [id number] Score: Age: >=75 Sex: female CHF history: No Hypertension history: Yes Stroke/TIA/thromboembolism history: No Vascular disease history: No Diabetes history: No [id number] Score: 4 ARISCAT Score: Age: >80 Preoperative [...] Gustafson present: no Lip Bite Test: III Microretrognathia/Micronagthia/Recessed Chin: No DENTAL Dental findings: teeth intact. II - ANESTHESIA PLAN ASA Score: 3 Anesthetic Plan: other Anesthetic plan additional comments: *PACC/TCI - anesthesia choice. Beta Mychal Monitoring Plan Post Procedure Analgesic Plan Informed Consent Anesthetic risks, benefits, alternatives, personnel and consent discussed: yes. Patient / Responsible Republican agrees to proceed: yes Patient / Surrogate [...] and voices comprehension and compliance. SIGNATURE: Kristine Mason APRN.CNP PATIENT NAME: Radha Glover DATE: December 11, 2022 TIME: 3:06 PM PAGER/CONTACT #: documented in this encounterFirelands [facility] Medical [facility]03-28-2023 Miscellaneous Notes* Telephone Encounter - KAILEE Landry - 12/08/2022 11:14 AM EDT TOTAL JOINT COMPLETE CARE PROGRAM PRE-OPERATIVE TEACHING Service D/ate: 12/16/2022 Service Time: 11:33 AM Date of : 1940 Gender: female Date of Surgery: 12/28/22 Procedure: Left Total Knee Replacement Complete Care Program was discussed with the patient: Billboard Erector Helper Identification: Patient identified a caregiver assisted living to help when discharged to home: lives alone. Doesn't have anyone then states her daughter works 6 days a week. Home Environment: Home Layout: Apartment, Entry Steps: 0, Bedroom Location: 1st floor, Bathroom Location: 1st floor, and walk in shower and tub shower. Pt owns walker, cane. Discussed with patient importance of attending joint education class and provided date and times ofclass: YES declined. Patient received Joint Education Binder: Yes Patient plans to go to rehab upon discharge. She states she discussed this with the doctor since she lives alone. I explained that is not a qualification for insurance to cover rehab and discussed C options and how the process works. SIGNATURE: KAILEE Landry PATIENT NAME: Radha Glover DATE: December 08, 2022 TIME: 11:14 AM documented in this encounterFirelands [facility] Medical [facility]12-06-2022 NoteHNO ID: [id number] Author: Brennan Monsivais MD Service: ? Author [...] which included preparing to see the patient, [id number] patient care, completing clinical documentation, obtaining and/or [...] (Generalized) SUBJECTIVE CHIEF COMPLAINT: Knee Pain HPI: Radha Glover is a 81 year old patient here for evaluation and management of left knee pain. Radha Glover has had progressive problems with the [...] specific incident that brought about this pain. Radha Glover also complains of referred pain, stiffness, and locking. FUNCTIONAL STATUS: Climb a flight of stairs or walk up a hill (5.50 METs) Total Joint Arthroplasty: Risk Calculator Radha Glover has a 35.73% chance of NOT returning home at discharge for a Primary total Knee replacement. Radha's estimated Length of Stay is 2 days. Radha's 30 day chance of readmission is 7.16%. [...] 100-299 Normal: 0 (more content not included)... [facility]12-06-2022 History of Present illness Narrative* Brennan Monsivais MD - 08/18/2022 8:27 AM EST CONSULT ORTHOPAEDIC: KNEE PRIMARY CARE PHYSICIAN: David Santana MD REFERRING PROVIDER: No referring provider defined for this encounter. ASSESSMENT & PLAN Impression: This is a very nice 81-year-old woman who was referred to me by my partner Dr. Sorin Cooley. Hepreviously did a right total hip and a right total knee on her, and she is incredibly happy with the results of these. She now has left knee severe osteoarthritis. She has tried a brace. She has tried injections. She has tried therapy. At this point she is considering joint replacement. She has some stuff going on athome with selling her house, and is a little bit on the fence about timing. I have discussed risks and benefits of operative versus nonoperative treatment with her at length, expected recovery times,and possible complications. She understands these well. She will call the office when she would like to see us again, and that point she may be considering knee replacement but for now would like to put it on hold. All questions answered today. I spent a total of approximately 25 minutes on the date of the service which included preparing to see the patient, onfl-eu-hruw patient care, completing clinical documentation, obtaining and/or [...] (Generalized) SUBJECTIVE CHIEF COMPLAINT: Knee Pain HPI: Radha Glover is a 81 year old patient here for evaluation and management of left knee pain. Shahab has had progressive problems with the knee(s) most of the day over the past 5 year(s) interfering with activities which include exercise, walking, rising from a sitting position, and standing for prolonged periods of time. The problem began limiting activities 1-3 years ago. Currently the pain in the joint is rated at 6 out of 10 with minimal activity. The pain is constantand is located along the outside aspect, in the front, and in the back. The pain is described as aching. Relieving factors include rest and repositioning. There is no specific incident that brought about this pain. Radha Glover also complains of referred pain, stiffness, and locking. FUNCTIONAL STATUS: Climb a flight of stairs or walk up a hill (5.50 METs) Total Joint Arthroplasty: Risk Calculator Radha Glover has a 35.73% chance of NOT returning home at discharge for a Primary total Knee replacement. Radha's estimated Length of Stay is 2 days. Radha's 30 day chance of readmission is 7.16%. [...] ABDOMINAL HYSTERECT W/WO RMVL TUBE OVARY Hysterectomy, INMA FAMILY HISTORY Problem Relation Age of Onset [...] full extension, internal/external rotation adequate, and no painwith log roll Neurovascular Status: Sensation Intact, Moves foot and ankle up & down, and 2+ dorsalis pedis DATA: Diagnostic tests reviewed for today's visit: Left knee X-Ray: Severe tri-compartmental degeneration The following conditions were addressed during the office visit today: none SIGNATURE: Brennan Monsivais MD PATIENT NAME: Radha Glover DATE: August 18, 2022 TIME: 8:32 AM documented in this encounterFirelands Regional Medical [facility]11-04-2022 NoteHNO ID: [id number] Author: Sorin Cooley MD Service: ? Author [...] satisfaction. This note was partially generated using Dragon voice recognition system and as such may contain grammatical or word errors Sorin Cooley, [facility]11-04-2022 Miscellaneous Notes* Mayda Ochoa RT(R) - 07/17/2022 11:10 AM EDT Radiology Service Progress Note PATIENT NAME: Radha Glover DATE OF SERVICE: July 17, 2022 TIME: 9:13 AM PATIENT IDENTITY VERIFICATION COMPLETED USING TWO (2) IDENTIFIERS: Name and Date of confirmedby patient verbally. FALL SCREENING: Has the patient had 2 falls in the last year or 1 fall with injury or currently using an Ambulatory Assistive Device (Walker, Cane, Wheelchair, Crutches, etc.)? No PATIENT GENDER DATA: Female. status: : No status: NO. PATIENT RELEVANT IMPLANT DATA REVIEWED: Not Applicable RADIOLOGY DEPARTMENT: General X-ray: Exam(s) Completed: Lower Extremity X- Ray(s): Knee, AP / Lat / Tunne / Merchant Left PERIPHERAL IV DATA: Not applicable SIGNED BY: RT Yao(R) July 17, 2022 9:13 AM documented in this encounterFirelands Regional Medical [facility]11-04-2022 Progress note* Mayda Ochoa RT(R) - 07/17/2022 11:10 AM EDT Radiology Service Progress Note PATIENT NAME: Radha Glover DATE OF SERVICE: July 17, 2022 TIME: 9:13 AM PATIENT IDENTITY VERIFICATION COMPLETED USING TWO (2) IDENTIFIERS: Name and Date of confirmedby patient verbally. FALL SCREENING: Has the patient had 2 falls in the last year or 1 fall with injury or currently using an Ambulatory Assistive Device (Walker, Cane, Wheelchair, Crutches, etc.)? No PATIENT GENDER DATA: Female. status: : No status: NO. PATIENT RELEVANT IMPLANT DATA REVIEWED: Not Applicable RADIOLOGY DEPARTMENT: General X-ray: Exam(s) Completed: Lower Extremity X- Ray(s): Knee, AP / Lat / Tunne / Merchant Left PERIPHERAL IV DATA: Not applicable SIGNED BY: RT Yao(R) July 17, 2022 9:13 AM [facility]11-04-[facility]22 History of Present illness Narrative* Sorin Cooley MD - 07/17/2022 9:26 AM EDT [facility] Department of Orthopedics Sorin Cooley MD FACS 81-year-old female here today regarding her left knee. She is undergone successful right total kneeand right total hip by me in the past that resolved. She is here for increasing left knee pain. Shehas received a couple of cortisone injections by [...] satisfaction. This note was partially generated using Zoe Majeste voice recognition system and as such may contain grammatical or word errors Sorin Cooley MD documented in this encounterFirelands [facility]01-15-2014 History of Past illness Narrative* Problem Noted Date Resolved Date Rotator cuff arthropathy 09/27/2013 017 Hip arthritis 10/14/2011 03/23/2012 Hip pain 10/14/2011 03/12/2017 documented as of this encounter (statuses as of 07/17/2022) [facility] of Past illness Narrative* Problem Noted Date Resolved Date Rotator cuff arthropathy 09/27/2013 017 Hip arthritis 10/14/2011 03/23/2012 Hip pain 10/14/2011 03/12/2017 documented as of this encounter (statuses as of 08/18/2022) [facility] of Past illness Narrative* Problem Noted Date Resolved Date Rotator cuff arthropathy 09/27/2013 017 Hip arthritis 10/14/2011 03/23/2012 Hip pain 10/14/2011 03/12/2017 documented as of this encounter (statuses as of 12/08/2022) [facility] illness Narrative* Problem Noted Date Resolved Date Rotator cuff arthropathy 09/27/2013 017 Muscle weakness (generalized) 01/22/2012 Hip arthritis 10/14/2011 03/23/2012 Hip pain 10/14/2011 03/12/2017 documented as of this encounter (statuses as of 12/11/2022) [facility] of [facility] illness Narrative* Problem Noted Date Resolved Date Rotator cuff arthropathy 09/27/2013 017 Muscle weakness (generalized) 01/22/2012 Hip arthritis 10/14/2011 03/23/2012 Hip pain 10/14/2011 03/12/2017 documented as of this encounter (statuses as of 12/16/2022) [facility] of [facility] illness Narrative* Problem Noted Date Resolved Date Rotator cuff arthropathy 09/27/2013 017 Muscle weakness (generalized) 01/22/2012 Hip arthritis 10/14/2011 03/23/2012 Hip pain 10/14/2011 03/12/2017 documented as of this encounter (statuses as of 12/31/2022) [facility] of [facility] illness Narrative* Problem Noted Date Resolved Date Rotator cuff arthropathy 09/27/2013 017 Muscle weakness (generalized) 01/22/2012 Hip arthritis 10/14/2011 03/23/2012 Hip pain 10/14/2011 03/12/2017 documented as of this encounter (statuses as of 01/01/2023) [facility] of [facility] illness Narrative* Problem Noted Date Resolved Date Rotator cuff arthropathy 09/27/2013 017 Muscle weakness (generalized) 01/22/2012 Hip arthritis 10/14/2011 03/23/2012 Hip pain 10/14/2011 03/12/2017 documented as of this encounter (statuses as of 01/02/2023) [facility] Narrative* Problem Noted Date Resolved Date Rotator cuff arthropathy 09/27/2013 017 Muscle weakness (generalized) 01/22/2012 Hip arthritis 10/14/2011 03/23/2012 Hip pain 10/14/2011 03/12/2017 documented as of this encounter (statuses as of 01/06/2023) [address]15-2014 History of Past illness Narrative* Problem Noted Date Resolved Date Rotator cuff arthropathy 09/27/2013 017 Muscle weakness (generalized) 01/22/2012 Hip arthritis 10/14/2011 03/23/2012 Hip pain 10/14/2011 03/12/2017 documented as of this encounter (statuses as of 01/07/2023) [address]15-2014 History of Past illness Narrative* Problem Noted Date Resolved Date Rotator cuff arthropathy 09/27/2013 017 Muscle weakness (generalized) 01/22/2012 Hip arthritis 10/14/2011 03/23/2012 Hip pain 10/14/2011 03/12/2017 documented as of this encounter (statuses as of 01/12/2023) [address]15-2014 History of Past illness Narrative* Problem Noted Date Resolved Date Rotator cuff arthropathy 09/27/2013 017 Muscle weakness (generalized) 01/22/2012 Hip arthritis 10/14/2011 03/23/2012 Hip pain 10/14/2011 03/12/2017 documented as of this encounter (statuses as of 01/15/2023) [facility] of [facility] illness Narrative* Problem Noted Date Resolved Date Rotator cuff arthropathy 09/27/2013 017 Muscle weakness (generalized) 01/22/2012 Hip arthritis 10/14/2011 03/23/2012 Hip pain 10/14/2011 03/12/2017 documented as of this encounter (statuses as of 01/16/2023) [place] [id number] History of Past illness Narrative* Problem Noted Date Resolved Date Rotator cuff arthropathy 09/27/2013 017 Muscle weakness (generalized) 01/22/2012 Hip arthritis 10/14/2011 03/23/2012 Hip pain 10/14/2011 03/12/2017 documented as of this encounter (statuses as of 01/21/2023) [place] [address]-15-2014 History of Past illness Narrative* Problem Noted Date Resolved Date Rotator cuff arthropathy 09/27/2013 017 Muscle weakness (generalized) 01/22/2012 Hip arthritis 10/14/2011 03/23/2012 Hip pain 10/14/2011 03/12/2017 documented as of this encounter (statuses as of 03/19/2023) [facility] History of Past illness Narrative* Problem Noted Date Resolved Date Rotator cuff arthropathy 09/27/2013 017 Muscle weakness (generalized) 01/22/2012 Hip arthritis 10/14/2011 03/23/2012 Hip pain 10/14/2011 03/12/2017 documented as of this encounter (statuses as of 03/19/2023) [facility] History of Past illness Narrative* Problem Noted Date Diagnosed Date Resolved Date Rotator cuff arthropathy 09/27/2013 Muscle weakness (generalized) 01/22/2012 12/11/2022 Hip arthritis 10/14/2011 03/23/2012 Hip pain 10/14/2011 03/12/2017 documented as of this encounter (statuses as of 03/30/2023) [facility] noteNo assessment information availableWCleveland [facility] Work Phone: Evaluation note* Diagnosis Arthritis of knee- Primary Unspecified arthropathy, lower leg [facility] Arthritis of knee- Primary Unspecified arthropathy, lower leg [facility] this [facility]* Diagnosis Primary osteoarthritis of left knee- Primary Primary localized osteoarthrosis, lower leg Primary osteoarthritis of left knee Primary localized osteoarthrosis, lower leg documented [facility] this [facility]* Diagnosis Pre-operative examination- Primary Preoperative examination, [...] osteoarthrosis, lower leg [facility]* Diagnosis Chronic pain of left knee- Primary Pain in joint, lower leg documented [facility]* Diagnosis Status post left knee replacement- Primary documented in this [facility]* Diagnosis Arthrofibrosis of knee joint, left- Primary Status post left knee replacement documented [facility] this encounter [facility]* Diagnosis Arthrofibrosis of knee joint, left- Primary Arthrofibrosis of total knee arthroplasty, [facility] encounter [facility]* Diagnosis Status post left knee replacement- Primary Arthrofibrosis of knee joint, left documented in this encounter [facility]* Diagnosis Pre-operative examination- Primary Preoperative examination, unspecified Murmur Undiagnosed cardiac murmurs Essential hypertension, benign Hypercholesteremia Pure hypercholesterolemia Gastroesophageal reflux disease, unspecified whether esophagitis present History of right knee joint replacement History of right hip replacement Class 1 obesity due to excess calories with serious comorbidity and body mass index (BMI) of 30.0 to 30.9 in adult Chronic pain of left knee Pain in joint, lower leg [facility] Additional Instructions Take Tylenol as needed for pain. Use ice for the swelling in the back of your head. Return to the ER if you have worsening symptoms or further concerns/further falls.[facility] Work Phone: Patient's home Plan of care note* Visit Details [...] effects of pain / antiplatelet medications, med vacation planner set up and med diary and [...] Discuss all medications you are taking, even utjk-lte-tsjoozj medicines, with your provider and pharmacist since [...] home exercise program. [facility]* Visit Details [...] get in to her walk in shower [facility] there was no room to stretch [...] home exercise program. documented in this encounter [facility] home Plan of care note* Visit Details Visit Type -ELECTROENCEPHALOGRAM TECHNOLOGIST ROUTINE Discipline -Physical Therapy Problems Problem Description [...] home exercise program. [facility]* Visit Details [...] home exercise program. documented in this encounter [facility]'s home Plan of care note* Visit Details Visit Type -ELECTROENCEPHALOGRAM TECHNOLOGIST ROUTINE Discipline -Physical Therapy Problems Problem Description [...] home exercise program. documented in this encounter [facility] for referral (narrative)* Outpatient Procedure (Routine) - Pending Review Specialty Diagnoses / Procedures Referred By Contac t Referred To [facility] [place] Diagnoses Pre-operative examination Procedures ECHO ECHO TTHRC R-T 2D W/WOM-MODE COMPL SPEC&COLR D Kristine Mason APRN.SPECIAL PROJECTS MANAGER [address] [place] [address] [facility] [place] [address] [place] [address] Referral ID Status Reason Start Date Expiration Date Visits Requested Visits Authorized [id number] Pending Review Auto-Generat ed Referral 12/11/2022 12/11/2023 1 1 * Outpatient Procedure (Routine) - Closed Specialty Diagnoses / Procedures Referred By Contac t Referred To Contact [facility] [place] Diagnoses Pre-operative examination Procedures ECG COMPLETE ECG ROUTINE ECG W/LEAST 12 LDS W/I&R Kristine Mason APRN.SPECIAL PROJECTS MANAGER [address] [place] [address] [facility] [place] [address] [place] [address] Referral ID Status Reason Start Date Expiration Date V isits Requested Visits Authorized [id number] Closed Auto-Generate d Referral 12/11/2022 12/11/2023 1 1 [facility] for referral (narrative)* Diagnostic Procedure Only (Routine) - Authorized Specialty Diagnoses / Procedures Referred By Contac t Referred To Contact XR IMAGING Diagnoses Chronic pain of left knee Procedures XR KNEE POST OP 3V AP/LAT/MERCHANT LEFT RADIOLOGIC EXAMINATION KNEE 3 VIEWS Dheeraj Landa APRN.SPECIAL PROJECTS MANAGER [address] [place] [address] Xr Imaging Referral ID Status Reason Start Date Expiration Date Visits Requested Visits Authorized [id number] Authorized Auto-Generat ed Referral 12/31/2022 01/29/2024 1 1 [facility] for referral (narrative)* Diagnostic Procedure Only (Routine) - Closed Specialty Diagnoses / Procedures Referred By Contac t Referred To Contact XR IMAGING Diagnoses Chronic pain of left knee Procedures XR KNEE POST OP 3V AP/LAT/MERCHANT LEFT RADIOLOGIC EXAMINATION KNEE 3 VIEWS Dheeraj Landa APRN.SPECIAL PROJECTS MANAGER [address] [place] [address] Xr Imaging [id number] Referral ID Status Reason Start Date Expiration Date V isits Requested Visits Authorized [id number] Closed Auto-Generate d Referral 12/31/2022 01/29/2024 1 1 [facility] for referral (narrative)No reason for referral information availableWCleveland Clinic Luther[facility] Hospital Work Phone: Reason for visit Narrative* Diagnostic Procedure Only (Routine) - Closed Specialty Diagnoses / Procedures Referred By Contac t Referred To Contact XR IMAGING Diagnoses Chronic pain of left knee Procedures XR KNEE POST OP 3V AP/LAT/MERCHANT LEFT RADIOLOGIC EXAMINATION KNEE 3 VIEWS Dheeraj Landa APRN.SPECIAL PROJECTS MANAGER [address] [address] [place] [address] Referral ID Status Reason Start Date Expiration Date V isits Requested Visits Authorized [id number] Closed Auto-Generate d Referral 12/31/2022 01/29/2024 1 1 [facility] N[facility]ative* Diagnostic Procedure Only (Routine) - Closed Specialty Diagnoses / Procedures Referred By Contac t Referred To Contact XR IMAGING Diagnoses Left knee pain, unspecified chronicity Procedures XR KNEE GENERAL 4V AP BOTH/PA BOTH/LAT/MERC LEFT RADIOLOGIC EXAM KNEE COMPLETE 4/[place] [address] [place] [address] [place] [address] Referral ID Status Reason Start Date Expiration Date V isits Requested Visits Authorized [id number] Closed Auto-Generate d Referral 07/02/2022 08/01/2023 1 1 [facility] Summary Purpose Family History No Family History Records FoundNo Family History Records FoundNo Family History Records FoundNo Family History Records FoundNo Family History Records FoundNo Family History Records FoundNo Family History Records Found Advance Directives No Advanced Directives Records Found Advance Directive Response Recorded Date/ Time Living Will Yes May 20 12:25pm Power of Reception Clerk Yes May 20, 2018 12:25pm Advance Directive Response Recorded Date/ Time Living Will Yes May 20 11:25am Power of Reception Clerk Yes May 20, 2018 11:25am Latest Code Status on File Code Status Date Activated Date Inactivated Comments Full Code 01/01/2023 7:41 AM Latest Code Status on File Code Status Date Activated Date Inactivated Comments Full Code 01/01/2023 7:41 AM Latest Code Status on File Code Status Date Activated Date Inactivated Comments Full Code 01/01/2023 7:41 AM 03/22/2023 6:00 AM Advance Directive Response Recorded Date/ Time Name of Medical Power of Reception Clerk NATHALY PINZON April 09, 2023 5:28pm Living Will Yes April 09, 2023 5:28pm Power of Reception Clerk Yes April 09 5:28pm Advance Directive Response Recorded Date/ Time Living Will Yes April 09, 2023 4:28pm Power of Reception Clerk Yes April 09 4:28pm Advance Directive Response Recorded Date/ Time Living Will Yes April 09, 2023 5:28pm Power of Reception Clerk Yes April 09 5:28pm Date Activated Date Inactivated Comments 01/01/2023 7:41 AM 03/22/2023 6:00 AM Chief Complaint and Reason for Visit Chief Complaint SCIATICA L KNEE PAIN, SCIATICA L SIDE. RX HERE Chief Complaint SCIATICA L KNEE PAIN, SCIATICA L SIDE. RX HERE LEG PAIN Chief Complaint OSTEO Chief Complaint STIFFNESS LT KN/RX H ERE head injury Chief Complaint Admit Date RIB AND BACK PAIN December 01, 2024 11: 30am Additional Source Comments INFORMATION SOURCE (unrecogn ized section and content) DATE CREATED AUTHOR 03/03/2018 [facility] DATE CREATED AUTHOR AUTHOR'S ORGANIZ ATION 03/03/2018 [facility] DATE CREATED AUTHOR AUTHOR'S ORGANIZ ATION 03/08/2018 [facility] DATE CREATED AUTHOR AUTHOR'S ORGANIZ ATION 03/09/2018 [facility] DATE CREATED AUTHOR AUTHOR'S ORGANIZ ATION 03/24/2023 [facility] DATE CREATED AUTHOR AUTHOR'S ORGANIZ ATION 04/28/2023 [facility] DATE CREATED AUTHOR AUTHOR'S ORGANIZ ATION 02/08/2025 [facility] Goals (unrecognized section and content) Goals may be documented in a n alternate sectionGoals may be documented in an alternate sectionGoals may be documented in an alternate sectionGoals may be documented in an alternate sectionGoals may be documented in an alternate sectionGoals may be documented in an alternate sectionGoals may be documented in an alternate sectionGoals may be documented in an alternate sectionGoals may be documented in an alternate sectionGoals may be documented in an alternate sectionGoals may be documented in an alternate section Source Comments (unrecognize d section and content) In the event this informatio n is protected by the Federal Confidentiality of Alcohol and Drug Abuse Patient Records regulations: The Federal rules restrict any use of the information to criminally investigate or prosecute any alcohol or drug abuse patient.[facility] the event this information is protected by the Federal Confidentiality of Alcohol and Drug Abuse Patient Records regulations: The Federal rules restrict any use of the information to criminally investigate or prosecute any alcohol or drug abuse patient.[facility] Campus[facility] the event this information is protected by the Federal Confidentiality of Alcohol and Drug Abuse Patient Records regulations: The Federal rules restrict any use of the information to criminally investigate or prosecute any alcohol or drug abuse patient.[facility] Campus[facility] the event this information is protected by the Federal Confidentiality of Alcohol and Drug Abuse Patient Records regulations: The Federal rules restrict any use of the information to criminally investigate or prosecute any alcohol or drug abuse patient.[facility] Campus[facility] the event this information is protected by the Federal Confidentiality of Alcohol and Drug Abuse Patient Records regulations: The Federal rules restrict any use of the information to criminally investigate or prosecute any alcohol or drug abuse patient.[facility] Campus[facility] the event this information is protected by the Federal Confidentiality of Alcohol and Drug Abuse Patient Records regulations: The Federal rules restrict any use of the information to criminally investigate or prosecute any alcohol or drug abuse patient.[facility] Campus[facility] the event this information is protected by the Federal Confidentiality of Alcohol and Drug Abuse Patient Records regulations: The Federal rules restrict any use of the information to criminally investigate or prosecute any alcohol or drug abuse patient.[facility] CampusIn the event this information is protected by the Federal Confidentiality of Alcohol and Drug Abuse Patient Records regulations: The Federal rules restrict any use of the information to criminally investigate or prosecute any alcohol or drug abuse patient.[facility] CampusIn the event this information is protected by the Federal Confidentiality of Alcohol and Drug Abuse Patient Records regulations: The Federal rules restrict any use of the information to criminally investigate or prosecute any alcohol or drug abuse patient.[facility] CampusIn the event this information is protected by the Federal Confidentiality of Alcohol and Drug Abuse Patient Records regulations: The Federal rules restrict any use of the information to criminally investigate or prosecute any alcohol or drug abuse patient.[facility] CampusIn the event this information is protected by the Federal Confidentiality of Alcohol and Drug Abuse Patient Records regulations: The Federal rules restrict any use of the information to criminally investigate or prosecute any alcohol or drug abuse patient.[facility] CampusIn the event this information is protected by the Federal Confidentiality of Alcohol and Drug Abuse Patient Records regulations: The Federal rules restrict any use of the information to criminally investigate or prosecute any alcohol or drug abuse patient.[facility] CampusIn the event this information is protected by the Federal Confidentiality of Alcohol and Drug Abuse Patient Records regulations: The Federal rules restrict any use of the information to criminally investigate or prosecute any alcohol or drug abuse patient.[facility] CampusIn the event this information is protected by the Federal Confidentiality of Alcohol and Drug Abuse Patient Records regulations: The Federal rules restrict any use of the information to criminally investigate or prosecute any alcohol or drug abuse patient.[facility] CampusIn the event this information is protected by the Federal Confidentiality of Alcohol and Drug Abuse Patient Records regulations: The Federal rules restrict any use of the information to criminally investigate or prosecute any alcohol or drug abuse patient.[facility] CampusIn the event this information is protected by the Federal Confidentiality of Alcohol and Drug Abuse Patient Records regulations: The Federal rules restrict any use of the information to criminally investigate or prosecute any alcohol or drug abuse patient.[facility] CampusIn the event this information is protected by the Federal Confidentiality of Alcohol and Drug Abuse Patient Records regulations: The Federal rules restrict any use of the information to criminally investigate or prosecute any alcohol or drug abuse patient.[facility] CampusIn the event this information is protected by the Federal Confidentiality of Alcohol and Drug Abuse Patient Records regulations: The Federal rules restrict any use of the information to criminally investigate or prosecute any alcohol or drug abuse patient.[facility] CampusIn the event this information is protected by the Federal Confidentiality of Alcohol and Drug Abuse Patient Records regulations: The Federal rules restrict any use of the information to criminally investigate or prosecute any alcohol or drug abuse patient.[facility] Reason for Visit (unrecogniz ed section and content) Reason Comments New Knee Pain Reason Comments New Pain Reason Comments Consult Reason Comments Pre-Op Teaching Specialty Diagnoses / Procedures Referred By Vicente hayward Referred To Contact [facility] Home Care [address] [place] [address] Referral ID Status Reason Start Date Expiration Date Visits Re quested Visits Authorized [id number] 1 1 Reason Comments Home Care Dressing removal Reason Comments Home Care Out patient PT Reason Comments Established Patient Follow Up Post Op Knee Replacement Care Teams (unrecognized sec tion and content) Lithograph Printer Relationship Specialty [place] [address] [place] [address] PCP - General Internal Medicine 03/12/17 Lithograph Printer Relationship Specialty Start Date End Date David Santana MD [address] [place] [address] PCP - General Internal Medicine 03/12/17 Team Status: Active Member Role Status Dates DAVID SANTANA Family Provider Active Dr. Geo Gonzalez MD Primary Care Provider Active Team Status: Inactive Member Role Status Dates Dr. Geo Gonzalez MD Primary Care Provider, Attending Provider Active Lithograph Printer Relationship Specialty Start Date End Date David Santana MD [address] [place] [address] PCP - General Internal Medicine 03/12/17 Arlin Jean-Baptiste, [facility] [address] [place] [address] Specialty Angle Roll Operator Orthopedics 12/08/22 02/04/23 Lithograph Printer Relationship Specialty Start Date End Date Geo Gonzalez MD [address] [facility] [address] [place] [address] PCP - General Family Medicine 12/08/22 SisArlin swanson, [facility] [address] [place] [address] Specialty Angle Roll Operator Orthopedics 12/08/22 02/04/23 Lithograph Printer Relationship Specialty Start Date End Date Geo Gonzalez MD [address] [facility] [address] [place] [address] PCP - General Family Medicine 12/08/22 Siskiki, Arlin, [facility] [address] [place] [address] Specialty Angle Roll Operator Orthopedics 12/08/22 02/04/23 Lithograph Printer Relationship Specialty Start Date End Date Geo Gonzalez MD [address] [facility] [address] [place] [address] PCP - General Family Medicine 12/08/22 Arlin Jean-Baptiste, [facility] [address] [place] [address] Specialty Angle Roll Operator Orthopedics 12/08/22 02/04/23 Brennan Monsivais MD [address] [facility] [place], [place] [id number] Home Care Provider Orthopedics 12/29/22 Dheeraj Landa, LINDA.SPECIAL PROJECTS MANAGER [address] [place] [address] Referring Orthopedics 12/29/22 Kaelyn Blake, PT [address] [place] [address] Direct Marketing Analyst Post Acute Care 12/29/22 Lithograph Printer Relationship Specialty Start Date End Date Geo Gonzalez MD [address] [facility] [address] [place] [address] PCP - General Family Medicine 12/08/22 Arlin Jean-Baptiste, [facility] [address] [place] [address] Specialty Angle Roll Operator Orthopedics 12/08/22 02/04/23 Brennan Monsivais MD [address] [place] [address] Home Care Provider Orthopedics 12/29/22 Dheeraj Landa, LINDA.SPECIAL PROJECTS MANAGER [address] [place] [address] Referring Orthopedics 12/29/22 Kaelyn Blake, PT [address] [place] [address] Direct Marketing Analyst Post Acute Care 12/29/22 Lithograph Printer Relationship Specialty Start Date End Date Geo Gonzalez MD [address] [facility] [address] [place] [address] PCP - General Family Medicine 12/08/22 Arlin Jean-Baptiste, [facility] [address] [place] [address] Specialty Angle Roll Operator Orthopedics 12/08/22 02/04/23 Brennan Monsivais MD [address] [place], [place] [address] Home Care Provider Orthopedics 12/29/22 Dheeraj Landa APRN.[address] [address] Referring Orthopedics 12/29/22 Kaelyn Blake, PT [address] [place] [address] Direct Marketing Analyst Post Acute Care 12/29/22 Lithograph Printer Relationship Specialty Start Date End Date Geo Gonzalez MD [address] [facility] [address] [place] [address] PCP - General Family Medicine 12/08/22 Arlin Jean-Baptiste, [facility] [address] [place] [address] Specialty Angle Roll Operator Orthopedics 12/08/22 02/04/23 Brennan Monsivais MD [address] [place] [address] Home Care Provider Orthopedics 12/29/22 Dheeraj Landa APRN.[address] [address] Referring Orthopedics 12/29/22 Kaelyn Blake, PT [address] [place] [address] Direct Marketing Analyst Post Acute Care 12/29/22 Lithograph Printer Relationship Specialty Start Date End Date Geo Gonzalez MD [address] [facility] [address] [place] [address] PCP - General Family Medicine 12/08/22 Arlin Jean-Baptiste, [facility] [address] [place] [address] Specialty Angle Roll Operator Orthopedics 12/08/22 02/04/23 Brennan Monsivais MD [address] [place] [address] Home Care Provider Orthopedics 12/29/22 Dheeraj Landa APRN.[address] [address] Referring Orthopedics 12/29/22 Kaelyn Blake, PT [address] [place] [address] Direct Marketing Analyst Post Acute Care 12/29/22 Lithograph Printer Relationship Specialty Start Date End Date Geo Gonzalez MD [address] [facility] [address] [place] [address] PCP - General Family Medicine 12/08/22 Arlin Jean-Baptiste, [facility] [address] [place] [address] Specialty Angle Roll Operator Orthopedics 12/08/22 02/04/23 Brennan Monsivais MD [address] [place] [address] Home Care Provider Orthopedics 12/29/22 Dheeraj Landa APRN.[address] [address] Referring Orthopedics 12/29/22 Kaelyn Blake, PT [address] [place] [address] Direct Marketing Analyst Post Acute Care 12/29/22 Lithograph Printer Relationship Specialty Start Date End Date Geo Gonzalez MD [address] [facility] [address] [place], [place] [id number] PCP - General Family Medicine 12/08/22 Arlin Jean-Baptiste, [facility] [address] [place] [address] Specialty Angle Roll Operator Orthopedics 12/08/22 02/04/23 Brennan Monsivais MD [address] [place], [place] [id number] Home Care Provider Orthopedics 12/29/22 Dheeraj Landa APRN.[address] [address] Referring Orthopedics 12/29/22 Kaelyn Blake, PT [address] [place] [address] Direct Marketing Analyst Post Acute Care 12/29/22 Lithograph Printer Relationship Specialty Start Date End Date Geo Gonzalez MD [address] [facility] [address] [place] [address] PCP - General Family Medicine 12/08/22 Brennan Monsivais MD [address] [place] [address] Home Care Provider Orthopedics 12/29/22 Dheeraj Landa APRN.[address] [address] Referring Orthopedics 12/29/22 Kaelyn Blake, PT [address] [place] [address] Direct Marketing Analyst Post Acute Care 12/29/22 Lithograph Printer Relationship Specialty Start Date End Date Geo Gonzalez MD [address] [facility] [address] [place] [address] PCP - General Family Medicine 12/08/22 Brennna Monsivais MD [address] [place] [address] Home Care Provider Orthopedics 12/29/22 Dheeraj Landa APRN.[address] [address] Referring Orthopedics 12/29/22 Kaelyn Blake, PT [address] [place] [address] Direct Marketing Analyst Post Acute Care 12/29/22 Lithograph Printer Relationship Specialty Start Date End Date Geo Gonzalez MD [address] [facility] [address] [place], [place] [id number] PCP - General Family Medicine 12/08/22 Brennan Monsivais MD [address] [place] [address] Home Care Provider Orthopedics 12/29/22 Dheeraj Landa APRN.SPECIAL PROJECTS MANAGER [address] [phone] Referring Orthopedics 12/29/22 Kaelyn Blake, PT [address] [place] [address] Direct Marketing Analyst Post Acute Care 12/29/22 Team Status: Active Member Role Status Dates Dr. Geo Gonzalez MD Primary Care Provider Active CORDELL MONTEJO Attending Provider, Referring Provider Active Team Status: Inactive Member Role Status Dates Dr. Geo Gonzalez MD Primary Care Provider Active Dr. Lesley Walker DO Emergency Provider Active Team Status: Inactive Member Role Status Dates Dr. Geo Gonzalez MD Primary Care Provider Active CORDELL MONTEJO Attending Provider, Referring Provider Active Team Status: Inactive Member Role Status Dates Dr. Geo Gonzalez MD Primary Care Provider Active Dr. Lesley Walker DO Attending Provider, Emergency P rovider Active Team Status: Inactive Member Role Status Dates Dr. Geo Gonzalez MD Primary Care Provi teo, Attending Provider, Referring Provider Active Team Status: Inactive Member Role Status Dates Dr. Geo Gonzalez MD Primary Care Provider Active Dr. Devon Dueñas MD Attending Provider Active Team Status: Inactive Member Role Status Dates Dr. Geo Gonzalez MD Primary Care Provider Active Dr. 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 Geo Gonzalez MD Primary Care Provider Active Start: October 16, 2024 End: October 16, 2024 Dr. Geo Gonzalez MD Attending Provider Active Start: October 16, 2024 End: October 16, 2024 Dr. Geo Gonzalez MD Referring Provider Active Start: October 16, 2024 End: October 16, 2024 Team Status: Inactive Member Role Status Dates Dr. Geo Gonzalez MD Primary Care Provider Active Start: December 01, 2024 End: December 01, 2024 Dr. Geo Gonzalez MD Attending Provider Active Start: December 01, 2024 End: December 01, 2024 Dr. Geo Gonzalez MD Referring Provider Active Start: December 01, 2024 End: December 01, 2024 Team Status: Inactive Member Role Status Dates Dr. Geo Gonzalez MD Primary Care Provider Active Start: February 01, 2025 End: February 01, 2025 Dr. Geo Gonzalez MD Attending Provider Active Start: February 01, 2025 End: February 01, 2025 Dr. Geo Gonzalez MD Referring Provider Active Start: February 01, 2025 End: February 01, 2025 FOR RECORDS PERTAINING TO PATIENTS WHO ARE [...] BE BASED ON THE PRIMARY CLINICAL RECORDS. [employer] [facility]. provides no warranty or guarantee of the accuracy or completeness of information in this document.
== END | disposition home or self-care (01) ==
LOC: MFPLAB 10:51
PROVIDERS: PCP Family Medicine; Referring Provider Family Medicine; Visit Provider Family Medicine
DX: M10.9 Gout, unspecified (principal)
CPT/HCPCS: 36415; 84550

== ENCOUNTER → 2025-03-29 | Outpatient (CLI) | payer MEDICARE, SELFPAY ==
[2025-03-29 18:47] LABS: Anion Gap 12 (5-15); BUN 20 mg/dL (4-19); BUN/Creat Ratio 19.4 RATIO (10-20); Calcium,Total 10.2 mg/dL (7.6-11.0); Carbon Dioxide 24.8 mmol/L (21.0-32.0); Chloride 102 mmol/L (98-108); Glucose 105 mg/dL (70-99); Potassium 4.4 mmol/L (3.3-5.1); Uric Acid 6.7 mg/dL (2.6-6.0)
--- OUTSIDE RECORDS SUMMARY | 2025-03-29 20:44 | XMS RPT_ITS | CCD ---
Author Organization [facility] Care Team Providers Care Supply Chain Logistics Manager Name Role Phone David Santana Unavailable Unavailable DEBS, DAVID Unavailable Unavailable DEBS, DAVID Unavailable Unavailable GERMAN SALCEDO Unavailable Unavailable GERMAN SALCEDO Unavailable Unavailable David Santana MD Primary Care Provider David Santana MD Primary Care Provider Arlin Gallardo Unavailable Unavailable Geo Gonzalez MD Primary Care Provider Brennan Monsivais MD Unavailable Cordell BOATING SAFETY OFFICER.CAR VARNISHER, Dheeraj Unavailable Hayden PT, Kaelyn Unavailable [phone] SORIN COOLEY Referring Unavailable DAVID SANTANA Primary [...] Primary Care Unavailable BRENNAN MONSIVAIS Attending Unavailable MAX, DAVID Song Primary Care Unavailable SORIN COOLEY Attending Unavailable GONZALEZ, GEO Rasmussen Primary Care Unavailable DHEERAJ LANDA Attending Unavailable Leasen PSS, Arlin Unavailable Unavailable Carlos DILLON, Geo Rasmussen Primary Care Provider Yodit DILLON, Brennan Unavailable Hayden PT, Kaelyn Unavailable Max DILLON, David Song Primary Care Provider Carlos DILLON, Dr. Guardado Primary Care Provider [phone] Carlos DILLON, Dr. Guardado Attending Provider [phone] Carlos DILLON, Dr. Guardado Referring Provider Carlos DILLON, Dr. Guardado Primary Care Provider Carlos DILLON, Dr. Guardado Attending Provider Carlos DILLON, Dr. Guradado Referring Provider Geo Gonzalez Primary Care Unavailable Gonzalez, Geo Attending Unavailable Gonzalez, Geo Referring Unavailable Gonzalez, Geo Primary Care Unavailable Gonzalez, Geo Attending Unavailable Gonzalez, Geo Referring Unavailable Gonzalez, Geo Referring Unavailable Gonzalez, Geo Primary Care Unavailable Gonzalez, Geo Attending Unavailable Gonzalez, Geo Primary Care Unavailable Gonzalez, Geo Attending Unavailable Gonzalez, Geo Referring Unavailable Gonzalez, Geo Primary Care Unavailable Gonzalez, Geo Attending Unavailable Gonzalez, Geo Referring Unavailable Allergies Allergy Classification Reported Allergen(s) Allergy Type Date of Onset Reaction(s) Facility (20 sources) clarithromycin; Translations: [CLARITHROMYCIN] Drug Allergy 02-20-2013 [facility] Repository (20 sources) codeine; Translations: [CODEINE] Drug Allergy 08-20-2009 [facility] Repository (20 sources) HYDROcodone; Translations: [HYDROCODONE] Drug Allergy 02-20-2013 [facility] Repository (20 sources) traMADol; Translations: [TRAMADOL HCL] Drug Allergy 02-20-2013 [facility] Medications Current Medications Medication Drug Class(es) Dates Sig (Normalized) Sig (Original) acetaminophen 500 mg oral tablet (13 sources) Start: 12-29-2022 take 2 tablets by mouth every eight hours as needed acetaminophen (TYLENOL) 500 mg tablet Take 2 tablets by mouth every 8 hours as needed for pain. 90 tablet 12/29/2022 Active Comment on above: Take 2 tablets by mo [facility] every 8 hours as needed for pain. amLODIPine 5 mg oral tablet (14 sources) Dihydropyridine Calcium Channel Mychal Start: 11-30-2022 take 1 tablet by mouth once daily amLODIPine (NORVASC) 5 mg tablet Take 5 mg by mouth once daily. 11/30/2022 Active Comment on above: Take 5 mg by mouth o nce daily. atorvastatin 20 mg oral tablet (12 sources) HMG-CoA Reductase Inhibitor Start: 05-20-2018 take [...] / losartan potassium 100 mg oral tablet (12 sources) Thiazide Diuretic, Angiotensin 2 Receptor Mychal Start: 05-20-2018 Losartan-Hydrochloro thiazide 1 EACH tablet Active 1 NMA PO DAILY May 20, 2018 12:00am Start: 05-20-2018 Losartan-[place] chlorothiazide Active 1 EACH PO DAILY May [...] Take by mouth. Take 1 tablet by [facility] twice daily for 28 days. Take 81 mg by mouth once daily. docusate sodium 100 mg oral capsule (10 sources) Start: 12-30-19 End: 01-30-20 take 1 capsule by mouth every twelve hours as needed docusate sodium (COLACE) 100 mg capsule Take 1 capsule by mouth twice daily as needed for constipation. 60 capsule 12/29/2022 01/29/2023 Comment on above: Take 1 capsule by [facility] twice daily as needed for constipation. oxyCODONE [...] Comment on above: Take 1 tablet by [facility] DAILY (6 AM) for 14 days. perflutren lipid microspheres 1.3 mL in NaCl (PF) 0.9% 10 mL injection (DEFINITY) (14 sources) Start: 12-12-19 End: 03-11-20 perflutren lipid microspheres 1.3 mL in NaCl (PF) 0.9% 10 mL injection (DEFINITY) polyethylene glycol 3350 39540 mg powder for oral solution (7 sources) [...] Episodic/Chronic Conditions associated with dizziness or vertigo (12 sources) Dizziness; Translations: [Dizziness and giddiness] 05-21-2018 Episodic Disorders of lipid metabolism (20 sources) Hypercholesterolemia; Translations: [Pure hypercholesterolemia, unspecified] Onset: 1 04-22-2011 Chronic Esophageal disorders (17 sources) Gastroesophageal reflux disease; Translations: [Gastro-esophageal reflux disease without esophagitis] Onset: 3 Chronic Essential hypertension (17 sources) Benign essential hypertension; Translations: [Essential (primary) hypertension] Onset: 3 Chronic Gastrointestinal hemorrhage (1 source) Melena; Translations: [Melena] Onset: 5 Episodic Gout and other crystal arthropathies (1 source) Gout, unspecified; Translations: [Gout, unspecified] Onset: 5 Chronic Other connective tissue disease (16 sources) History [...] Unknown / UNK(Unknown) Onset: 7 Viral infection (10 sources) Disease caused by 2019-nCoV; Translations: [COVID-19] [...] Test Name Value Interpretation Reference Range Facility Serum or plasma uric acid me asurement (mass/volume)Ordered By: Geo Gonzalez on 02-22-2025 Urate [Mass/Vol] 7.6 mg/dL High 2.6-6.0 [facility] Comment on above: The drugs N-Acetylcy steine and Metamizole may falsely depress this assay. Uric Acidon 02-22-2025 URIC 7.6 mg/dL High 2.6-6.0 [facility] Comment on above: Result Comment: The drugs N-Acetylcysteine and Metamizole may falsely depress this assay. Performed By: #### L 501.1400 #### [facility] [address] [place], [address] Absolute lymphocyte countOrd ered By: Geo Gonzalez on 02-01-2025 Lymphocytes Auto (Unsp spec) [#/Vol] 1.90 10*3/uL 0.83-4.51 [facility] Absolute neutrophil countOrd ered By: Geo Gonzalez on 02-01-2025 Neutrophils (Bld) [#/Vol] 3.9 10*3/uL 2.0-7.7 [facility] Automated lymphocyte count a s percentage of total leukocytesOrdered By: Geo Carlos on 02-01-2025 Lymphocytes/100 WBC Auto (Unsp spec) 27.9 % 19-41 [facility] Basophil percentageOrdered B y: Geo Gonzalez on 02-01-2025 Basophils/100 WBC (Bld) 0.4 % 0-1 [facility] CBC W/Diff, Automatedon 01-12 Absolute Lymph 1.90 X10 3/uL Normal 0.83-4.51 [facility] Comment on above: Performed By: #### L 100.0100 #### [facility] [address] [place], [address] Absolute Neut 3.9 X10 3/uL Normal 2.0-7.7 [facility] Comment on above: Performed By: #### L 100.0100 #### [facility] [address] [place], [address] Basophils/100 WBC (Bld) 0.4 % Normal 0-1 [facility] Comment on above: Performed By: #### L 100.0100 #### [facility] [address] [place], [address] Eosinophils/100 WBC (Bld) 5.0 % Normal 0-5 [facility] Comment on above: Performed By: #### L 100.0100 #### [facility] [address] [place], [address] Erythrocyte distribution width (RBC) [Ratio] 12.8 % Normal 11.6-14.6 [facility] Comment on above: Performed By: #### L 100.0100 #### [facility] [address] [place], [address] Hematocrit (Bld) [Volume fraction] 39.3 % Normal 37-47 [facility] Comment on above: Performed By: #### L 100.0100 #### [facility] [address] [place], [address] Hemoglobin (Bld) [Mass/Vol] 12.8 g/dL Normal 12.0-15.0 [facility] Comment on above: Performed By: #### L 100.0100 #### [facility] [address] [place], [address] IG% 0.300 Normal 0.0-0.9 [facility] Comment on above: Result Comment: IG% - Immature Granulocytes (promyelocytes, myelocytes and metamyelocytes) > 1% indicates that a LEFT SHIFT is Present. Performed By: #### L 100.0100 #### [facility] [address] [place], [address] Lymphocytes/100 WBC (Bld) 27.9 % Normal 19-41 [facility] Comment on above: Performed By: #### L 100.0100 #### [facility] [address] [place], [address] MCH (RBC) [Entitic mass] 30.2 pg Normal 27.0-32.0 [facility] Comment on above: Performed By: #### L 100.0100 #### [facility] [address] [place] [place], [address] MCHC (RBC) [Mass/Vol] 32.6 g/dL Normal 32-36 [facility] Comment on above: Performed By: #### L 100.0100 #### [facility] [address] [place], [address] MCV (RBC) [Entitic vol] 92.7 fL Normal 81-99 [facility] Comment on above: Performed By: #### L 100.0100 #### [facility] [address] [place], [address] Monocytes/100 WBC (Bld) 8.8 % Normal 0-10 [facility] Comment on above: Performed By: #### L 100.0100 #### [facility] [address] [place], [address] Neutrophils/100 WBC (Bld) 57.6 % Normal 47-70 [facility] Comment on above: Performed By: #### L 100.0100 #### [facility] [address] [place], [address] Nucleated RBC (Bld) [#/Vol] 0 10*3/uL Normal 0-5 [facility] Comment on above: Performed By: #### L 100.0100 #### [facility] [address] [place], [address] Platelet mean volume (Bld) [Entitic vol] 10.6 fL Normal 6.2-12.0 [facility] Comment on above: Performed By: #### L 100.0100 #### [facility] [address] [place], [address] Platelets (Bld) [#/Vol] 254 10*3/uL Normal 150-450 [facility] Comment on above: Performed By: #### L 100.0100 #### [facility] [address] [place], [address] RBC (Bld) [#/Vol] 4.24 10*6/uL Normal 4.2-5.4 [facility] Comment on above: Performed By: #### L 100.0100 #### [facility] [address] [place], [address] RDW SD 43.8 fl Normal 35.1-43.9 [facility] Comment on above: Performed By: #### L 100.0100 #### [facility] [address] [place], [address] WBC (Bld) [#/Vol] 6.8 10*3/uL Normal 4.4-11.0 [facility] Comment on above: Performed By: #### L 100.0100 #### [facility] [place], [address] Eosinophil percentageOrdered By: Geo Gonzalez on 02-01-2025 Eosinophils/100 WBC (Bld) 5.0 % 0-5 [facility] Erythrocyte distribution wid th ratioOrdered By: Geo Gonzalez on 02-01-2025 Erythrocyte distribution width (RBC) [Ratio] 12.8 % 11.6-14.6 [facility] Erythrocyte distribution wid th standard deviationOrdered By: Geo Gonzalez on 02-01-2025 Erythrocyte distribution width (RBC) [Ratio] 43.8 fl 35.1-43.9 [facility] Hematocrit Auto (Bld) [Volum e fraction]Ordered By: Geo Gonzalez on 02-01-2025 Hematocrit (Bld) [Volume fraction] 39.3 % 37-47 [facility] Hemoglobin measurementOrdere d By: Geo Gonzalez on 02-01-2025 Hemoglobin (Bld) [Mass/Vol] 12.8 g/dL 12.0-15.0 [facility] Immature granulocytes/100 WB C Auto (Bld)Ordered By: Geo Gonzalez on 02-01-2025 Immature granulocytes/100 WBC (Bld) 0.300 % 0.0-0.9 [facility] Comment on above: IG% - Immature Granu locytes (promyelocytes, myelocytes and metamyelocytes) > 1% indicates that a LEFT SHIFT is Present. MCV (mean corpuscular volume ) determinationOrdered By: Geo Gonzalez on 02-01-2025 MCV (RBC) [Entitic vol] 92.7 fL 81-99 [facility] Mean corpuscular hemoglobin (MCH) determinationOrdered By: Geo Gonzalez on 02-01-2025 MCH (RBC) [Entitic mass] 30.2 pg 27.0-32.0 [facility] Mean corpuscular hemoglobin concentration (MCHC) determinationOrdered By: Geo Gonzalez on 02-01-2025 MCHC (RBC) [Mass/Vol] 32.6 g/dL 32-36 [facility] Mean platelet volume determi nationOrdered By: Geo Gonzalez on 02-01-2025 Platelet mean volume (Bld) [Entitic vol] 10.6 fL 6.2-12.0 [facility] Monocyte percentageOrdered B y: Geo Gonzalez on 02-01-2025 Monocytes/100 WBC (Bld) 8.8 % 0-10 [facility] Neutrophil percentageOrdered By: Geo Gonzalez on 02-01-2025 Neutrophils/100 WBC (Bld) 57.6 % 47-70 [facility] Nucleated red blood cell per centageOrdered By: Geo Gonzalez on 02-01-2025 Nucleated RBC/100 WBC (Bld) [Ratio] 0 % 0-5 [facility] Platelet countOrdered By: Alexandra Gonzalez on 02-01-2025 Platelets (Bld) [#/Vol] 254 10*3/uL 150-450 [facility] RBC Auto (Bld) [#/Vol]Ordere d By: Geo Gonzalez on 02-01-2025 RBC (Bld) [#/Vol] 4.24 10*6/uL 4.2-5.4 [facility] White blood cell (WBC) count Ordered By: Geo Gonzalez on 02-01-2025 WBC (Bld) [#/Vol] 6.8 10*3/uL 4.4-11.0 [facility] L/S Spine Min 4 Viewson 11-12 L/S Spine Min 4 Views [facility] Imaging Services [address] [place] [address] L/S Spine Min 4 Views MR#: [id number] Acct: [id number] Name: RADHA GLOVER Rep #: [id number] : 1940 F 84 From: Thierry Yañez MD PCP: Dr. Geo Gonzalez MD Status: REG CLI Study: L/S Spine Min 4 Views Date of Exam: 12/01/24 Exam# [id number] Ordering Dr: Geo Gonzalez MD PROCEDURE: L/S [...] delineated by MRI as indicated. Reading Location: [id number] CC: Dr. Geo Gonzalez MD Eyeglass Lens Generator: Signed Normal [facility] Ribs Unil 2V No CXRon 2024 Ribs Unil 2V No CXR [facility] Imaging Services [address] [place] [address] Ribs Unil 2V No CXR MR#: [id number] Acct: [id number] Name: RADHA GLOVER Rep #: [id number] : 1940 F 84 From: Thierry Yañez MD PCP: Dr. Geo Gonzalez MD Status: REG CLI Study: Ribs Unil 2V No CXR Date of Exam: 12/01/24 Exam# [id number] Ordering Dr: Geo Gonzalez MD PROCEDURE: RIBS [...] 3. Additional description as above. Reading Location: [id number] CC: Dr. Geo Gonzalez MD Eyeglass Lens Generator: Signed Normal [facility] Basic Metabolic Profile (BMP )on 10-16-2024 BUN/CRE 18.2 RATIO Normal 10-20 [facility] Comment on above: Performed By: #### L 500.4100, L500.2500 #### [facility] [address] [facility] [address] [place],Total 9.4 mg/dL Normal 8.5-10.1 [facility] Comment on above: Performed By: #### L 500.4100, L500.2500 #### [facility] [address] [facility] [address] Chloride [Moles/Vol] 106 mmol/L Normal 98-107 [facility] Comment on above: Performed By: #### L 500.4100, L500.2500 #### [facility] [address] [facility] [address] CO2 [Moles/Vol] 24.0 mmol/L Normal 21.0-32.0 [facility] Comment on above: Performed By: #### L 500.4100, L500.2500 #### [facility] [address] [facility] [address] Creatinine [Mass/Vol] 0.99 mg/dL Normal 0.55-1.02 [facility] Comment on above: Result Comment: The validity of the calculated GFR GFRAA in patients over 70 years has not been determined. Clinical correlation is essential. Performed By: #### L 500.4100, L500.2500 #### [facility] [address] [place], [address] EST GFR - AA 68 mL/min Normal >60 [facility] Comment on above: Result Comment: Afri can [place] GFR Calc Performed By: #### L 500.4100, L500.2500 #### [facility] [address] [place], [address] GAP 9 Normal 5-15 [facility] Comment on above: Performed By: #### L 500.4100, L500.2500 #### [facility] [address] [place], [address] GFR/1.73 sq M.predicted among non-blacks MDRD (S/P/Bld) [Vol rate/Area] 57 mL/min/{1.73_m2} Low >60 [facility] Comment on above: Result Comment: Non- GFR Calc Performed By: #### L 500.4100, L500.2500 #### [facility] [address] [place], [address] Glucose [Mass/Vol] 116 mg/dL High 74-106 [facility] Comment on above: Result Comment: Fast ing Glucose result from 100 to 125 mg/dL suggests IMPAIRED HOMEOSTASIS per A.D.A. criteria. Performed By: #### L 500.4100, L500.2500 #### [facility] [address] [place], [address] Potassium [Moles/Vol] 3.8 mmol/L Normal 3.5-5.1 [facility] Comment on above: Performed By: #### L 500.4100, L500.2500 #### [facility] [address] [place], [address] Sodium [Moles/Vol] 139 mmol/L Normal 136-145 [facility] Comment on above: Performed By: #### L 500.4100, L500.2500 #### [facility] [address] [place], [address] Urea nitrogen [Mass/Vol] 18 mg/dL Normal 7-18 [facility] Comment on above: Performed By: #### L 500.4100, L500.2500 #### [facility] [address] [place], [address] Blood urea nitrogen (BUN)/cr eatinine ratioOrdered By: Geo Gonzalez on 10-16-2024 Urea nitrogen/Creatinine [Mass ratio] 18.2 mg/mg 10-20 [facility] Carbon dioxide measurementOr dered By: Geo Gonzalez on 10-16-2024 CO2 [Moles/Vol] 24.0 mmol/L 21.0-32.0 [facility] Chloride measurementOrdered By: Geo Gonzalez on 10-16-2024 Chloride [Moles/Vol] 106 mmol/L 98-107 [facility] Estimated glomerular filtrat ion rate (GFR) AmericanOrdered By: Geo Gonzalez on 10-16-2024 Estimated GFR (MDRD) Amer 68 mL/min >60 [facility] Comment on above: GFR Calc Glomerular filtration rate ( GFR) estimationOrdered By: Geo Gonzalez on 10-16-2024 Estimated GFR (MDRD) Non-Af Amer 57 mL/min Low >60 [facility] Comment on above: Non- GFR Calc GFR/1.73 sq M.predicted among non-blacks MDRD (S/P/Bld) [Vol rate/Area] 57 mL/min/{1.73_m2} Low >60 [facility] Comment on above: Non- GFR Calc Glucose measurementOrdered B y: Geo Gonzalez on 10-16-2024 Glucose [Mass/Vol] 116 mg/dL High 74-106 [facility] Comment on above: Fasting Glucose resu lt from 100 to 125 mg/dL suggests IMPAIRED HOMEOSTASIS per A.D.A. criteria. High density lipoprotein (HD L) measurementOrdered By: Geo Gonzalez on 10-16-2024 Cholesterol in HDL [Mass/Vol] 58 mg/dL >40 [facility] Comment on above: The drugs N-Acetylcy steine and Metamizole may falsely depress this assay. Reference Range HDL <40 mg/dL Low HDL Cholesterol HDL >or= 60 mg/dL High HDL Cholesterol Lipid Profileon 10-16-2024 Cholesterol [Mass/Vol] 271 mg/dL High 200 [facility] Comment on above: Result Comment: <200 mg/dL Desirable 200-240 mg/dL Borderline >240 mg/dL High Risk Performed By: #### L 500.4100, L500.2500 #### [facility] [address] [place], [address] Cholesterol in HDL [Mass/Vol] 58 mg/dL Normal [facility] Comment on above: Result Comment: The drugs N-Acetylcysteine and Metamizole may falsely depress this assay. Reference Range HDL <40 mg/dL Low HDL Cholesterol HDL >or= 60 mg/dL High HDL Cholesterol Performed By: #### L 500.4100, L500.2500 #### [facility] [address] [place], [address] Cholesterol in LDL [Mass/Vol] 172 mg/dL High 0-130 [facility] Comment on above: Performed By: #### L 500.4100, L500.2500 #### [facility] [address] [place], [address] Cholesterol in VLDL [Mass/Vol] 41 mg/dL High 5-40 [facility] Comment on above: Performed By: #### L 500.4100, L500.2500 #### [facility] [address] [place], [address] Triglyceride [Mass/Vol] 205 mg/dL High [facility] Comment on above: Result Comment: The drugs N-Acetylcysteine and Metamizole may falsely depress this assay. Serum Triglycerides Reference Interval Normal <150 mg/dL Borderline high 150 - 199 mg/dL High 200 - 499 mg/dL Very High > or = 500 mg/dL Performed By: #### L 500.4100, L500.2500 #### [facility] [address] [place], [address] Low density lipoprotein (LDL ) cholesterol measurementOrdered By: Geo Gonzalez on 10-16-2024 Cholesterol in LDL [Mass/Vol] 172 mg/dL High 0-130 [facility] Potassium measurementOrdered By: Geo Gonzalez on 10-16-2024 Potassium [Moles/Vol] 3.8 mmol/L 3.5-5.1 [facility] Serum anion gap measurementO rdered By: Geo Gonzalez on 10-16-2024 Anion gap [Moles/Vol] 9 mmol/L 5-15 [facility] Serum or plasma calcium pastor urement (mass/volume)Ordered By: Geo Gonzalez on 10-16-2024 Calcium [Mass/Vol] 9.4 mg/dL 8.5-10.1 [facility] Serum or plasma cholesterol measurement (mass/volume)Ordered By: Geo Gonzalez on 10-16-2024 Cholesterol [Mass/Vol] 271 mg/dL High <200 [facility] Comment on above: <200 mg/dL Desirable 200-240 mg/dL Borderline >240 mg/dL High Risk Serum or plasma creatinine m easurement (mass/volume)Ordered By: Geo Gonzalez on 10-16-2024 Creatinine [Mass/Vol] 0.99 mg/dL 0.55-1.02 [facility] Comment on above: The validity of the calculated GFR & GFRAA in patients over 70 years has not been determined. Clinical correlation is essential. Serum or plasma urea nitroge n measurement (mass/volume)Ordered By: Geo Gonzalez on 10-16-2024 Urea nitrogen [Mass/Vol] 18 mg/dL 7-18 [facility] Sodium levelOrdered By: Geo Gonzalez on 10-16-2024 Sodium [Moles/Vol] 139 mmol/L 136-145 [facility] Triglycerides measurementOrd ered By: Geo Gonzalez on 10-16-2024 Triglyceride [Mass/Vol] 205 mg/dL High <199 [facility] Comment on above: The drugs N-Acetylcy steine and Metamizole may falsely depress this assay.Serum Triglycerides Reference Interval Normal <150 mg/dL Borderline high 150 - 199 mg/dL High 200 - 499 mg/dL Very High > or = 500 mg/dL Very low density lipoprotein (VLDL) cholesterol measurementOrdered By: Geo Gonzalez on 10-16-2024 Very low density lipoprotein (VLDL) cholesterol measurement 41 mg/dL High 5-40 [facility] VLDL Cholesterol 41 mg/dL High 5-40 [facility] Shoulder min 2 Viewson 03-06 [address] [facility] Imaging Services [address] [place] [address] Shoulder min 2 Views MR#: [id number] Acct: [id number] Name: RADHA GLOVER Rep #: [id number] : 1940 F 83 From: Adelfo Calderon MD PCP: Dr. Geo Gonzalez MD Status: [facility] CL Study: Shoulder min 2 Views Date of Exam: 03/06/24 Exam# [id number] Ordering Dr: Geo Gonzalez MD [id number] STUDY: X-RAY - RIGHT SHOULDER REASON FOR [...] Signed: Adelfo Calderon MD at 9:33 EDT , CC: Dr. Geo Gonzalez MD Eyeglass Lens Generator: Signed Normal [facility] Basophil percentageOrdered B y: Lauri Sheth on 12-04-2023 Hemoglobin (Bld) [Mass/Vol] 12.6 g/dL 12.0-15.0 [facility] WBC (Bld) [#/Vol] 5.9 10*3/uL 4.4-11.0 [facility] Determination of erythrocyte mean corpuscular volume (MCV)Ordered By: Lauri Sheth on 12-04-2023 MCV (RBC) [Entitic vol] 93.1 fL 81-99 [facility] [facility] Erythrocyte distribution wid th ratioOrdered By: Lauri Sheth on 12-04-2023 Erythrocyte distribution width (RBC) [Ratio] 12.7 % 11.6-14.6 [facility] Erythrocyte distribution wid th standard deviationOrdered By: Lauri Sheth on 12-04-2023 Erythrocyte distribution width (RBC) [Entitic vol] 43.2 fL 35.1-43.9 [facility] Erythrocyte sedimentation ra teOrdered By: Lauri Sheth on 12-04-2023 ESR (Bld) [Velocity] 7 mm/h 0-30 [facility] Hematocrit Auto (Bld) [Volum e fraction]Ordered By: Lauri Sheth on 12-04-2023 Hematocrit (Bld) [Volume fraction] 39.0 % 37-47 [facility] Laboratory - Hematology and Cell countsOrdered By: Lauri Sheth on 12-04-2023 MCH (RBC) [Entitic mass] 30.1 pg 27.0-32.0 [facility] MCHC (RBC) [Mass/Vol] 32.3 g/dL 32-36 [facility] Platelet mean volume (Bld) [Entitic vol] 10.7 fL 6.2-12.0 [facility] Platelets (Bld) [#/Vol] 236 10*3/uL 150-450 [facility] No Panel InformationOrdered By: Lauri Sheth on 12-04-2023 C-Reactive Protein Extended Range 3.65 mg/L 0.0-3.0 [facility] Comment on above: C-Reactive Protein ( CRP) provides useful information for thediagnosis, therapy and monitoring of inflammatory processesand associated diseases. For the evaluation of Relative Riskfor Cardiovascular Disease, a High Sensitivity CRP (HSCRP)should be ordered. RBC Auto (Bld) [#/Vol]Ordere d By: Lauri Sheth on 12-04-2023 RBC (Bld) [#/Vol] 4.19 10*6/uL 4.2-5.4 [facility] HIV 1 and HIV-2 antibody ass ay with HIV-1 p24 antigen detectionOrdered By: Geo Gonzalez on 09-09-2023 HIV 1+2 Ab+HIV1 p24 Ag IA Ql Non-Reactive Nonreactive [facility] No Panel InformationOrdered By: Geo Gonzalez on 09-09-2023 Miscellaneous Test See comment [facility] Comment on above: TEST RESULTS LIMITSH SV-2 [...] should be clinically correlated. [facility] ORIGINAL REPORT ON FILE IN LAB CONTAINS ADDITIONAL TEST SITE INFORMATION. Serum Treponema species anti body detectionOrdered By: Geo Gonzalez on 09-09-2023 Treponema sp Ab Ql (S) Non-Reactive [facility] Absolute lymphocyte countOrd ered By: Devon Dueñas on 06-29-2023 Lymphocytes Auto (Unsp spec) [#/Vol] 1.05 10*3/uL 0.83-4.51 [facility] Basophil percentageOrdered B y: Devon Dueñas on 06-29-2023 Basophils/100 WBC (Bld) 0.1 % 0-1 [facility] Bilirubin [Mass/Vol] 0.30 mg/dL 0.20-1.00 [facility] Comment on above: For patients on eltr ombopag therapy, use of Dimension [place] TBIL is not recommended. Chloride [Moles/Vol] 107 mmol/L 98-107 [facility] Eosinophils/100 WBC (Bld) 0.3 % 0-5 [facility] Glucose [Mass/Vol] 139 mg/dL 74-106 [facility] Comment on above: Fasting Glucose resu lt greater than or equal to 126 mg/dL suggests DIABETES MELLITUS per A.D.A. criteria. Neutrophils (Bld) [#/Vol] 7.4 10*3/uL 2.0-7.7 [facility] Neutrophils/100 WBC (Bld) 83.6 % 47-70 [facility] Potassium [Moles/Vol] 3.8 mmol/L 3.5-5.1 [facility] Protein [Mass/Vol] 7.9 g/dL 6.4-8.2 [facility] Sodium [Moles/Vol] 139 mmol/L 136-145 [facility] WBC (Bld) [#/Vol] 8.9 10*3/uL 4.4-11.0 [facility] Blood erythrocytes count (nu mber/volume)Ordered By: Devon Dueñas on 06-29-2023 RBC (Bld) [#/Vol] 4.50 10*6/uL 4.2-5.4 [facility] Blood hemoglobin measurement (mass/volume)Ordered By: Devon Dueñas on 06-29-2023 Hemoglobin (Bld) [Mass/Vol] 13.2 g/dL 12.0-15.0 [facility] Blood lymphocytes/100 leukoc ytesOrdered By: Devon Dueñas on 06-29-2023 Lymphocytes/100 WBC (Bld) 11.8 % 19-41 [facility] Blood monocytes/100 leukocyt esOrdered By: Devon Dueñas on 06-29-2023 Monocytes/100 WBC (Bld) 3.8 % 0-10 [facility] Blood platelet mean volumeOr dered By: Devon Dueñas on 06-29-2023 Platelet mean volume (Bld) [Entitic vol] 10.8 fL 6.2-12.0 [facility] Determination of erythrocyte mean corpuscular volume (MCV)Ordered By: Devon Dueñas on 06-29-2023 MCV (RBC) [Entitic vol] 92.0 fL 81-99 [facility] Hematocrit Auto (Bld) [Volum e fraction]Ordered By: Devon Dueñas on 06-29-2023 Hematocrit (Bld) [Volume fraction] 41.4 % 37-47 [facility] Laboratory - Chemistry and C hemistry - challengeOrdered By: Devon Dueñas on 06-29-2023 ALP [Catalytic activity/Vol] 97 U/L 45-117 [facility] ALT [Catalytic activity/Vol] 24 U/L 13-56 [facility] CO2 [Moles/Vol] 26.0 mmol/L 21.0-32.0 [facility] Globulin (S) [Mass/Vol] 4.3 g/dL 2.2-4.2 [facility] Magnesium [Mass/Vol] 2.1 mg/dL 1.6-2.6 [facility] Urea nitrogen/Creatinine [Mass ratio] 14.8 mg/mg 10-20 [facility] Laboratory - Hematology and Cell countsOrdered By: Devon Dueñas on 06-29-2023 Erythrocyte distribution width (RBC) [Entitic vol] 42.6 fL 35.1-43.9 [facility] Erythrocyte distribution width (RBC) [Ratio] 12.6 % 11.6-14.6 [facility] Immature granulocytes/100 WBC (Bld) 0.400 % 0.0-0.9 [facility] Comment on above: IG% - Immature Granu locytes (promyelocytes, myelocytes and metamyelocytes) > 1% indicates that a LEFT SHIFT is Present. MCH (RBC) [Entitic mass] 29.3 pg 27.0-32.0 [facility] Nucleated RBC/100 WBC (Bld) [Ratio] 0 % 0-5 [facility] MCHC Auto (RBC) [Mass/Vol]Or dered By: Devon Dueñas on 06-29-2023 MCHC (RBC) [Mass/Vol] 31.9 g/dL 32-36 [facility] No Panel InformationOrdered By: Devon Dueñas on 06-29-2023 Estimated GFR (MDRD) Amer 72 mL/min >60 [facility] Comment on above: GFR Calc Estimated GFR (MDRD) Non-Af Amer 60 mL/min >60 [facility] Comment on above: Non- GFR Calc Platelets bldOrdered By: Marely Dueñas on 06-29-2023 Platelets (Bld) [#/Vol] 254 10*3/uL 150-450 [facility] Serum or plasma C reactive p rotein measurement (mass/volume)Ordered By: Devon Dueñas on 06-29-2023 CRP [Mass/Vol] mg/L 0.0-3.0 [facility] Comment on above: C-Reactive Protein ( CRP) provides useful information for thediagnosis, therapy and monitoring of inflammatory processesand associated diseases. For the evaluation of Relative Riskfor Cardiovascular Disease, a High Sensitivity CRP (HSCRP)should be ordered. Serum or plasma albumin pastor urement (mass/volume)Ordered By: Devon Dueñas on 06-29-2023 Albumin [Mass/Vol] 3.6 g/dL 3.2-5.0 [facility] Serum or plasma albumin/glob ulin mass ratioOrdered By: Devon Dueñas on 06-29-2023 Albumin/Globulin [Mass ratio] 0.8 {ratio} 0.9-2.4 [facility] Serum or plasma calcium pastor urement (mass/volume)Ordered By: Devon Dueñas on 06-29-2023 Calcium [Mass/Vol] 9.7 mg/dL 8.5-10.1 [facility] Serum or plasma creatinine m easurement (mass/volume)Ordered By: Devon Dueñas on 06-29-2023 Creatinine [Mass/Vol] 0.95 mg/dL 0.55-1.02 [facility] Comment on above: The validity of the calculated GFR & GFRAA in patients over 70 years has not been determined. Clinical correlation is essential. Serum or plasma urea nitroge n measurement (mass/volume)Ordered By: Devon Dueñas on 06-29-2023 Urea nitrogen [Mass/Vol] 14 mg/dL - [facility] Thin prep Papanicolaou smear with manual screeningOrdered By: Devon Dueñas on 06-29-2023 Thin prep Papanicolaou smear with manual screening 24 U/L [facility] Thin prep Papanicolaou smear with manual screening 6 5-15 [facility] CNOVon 04-27-2023 CNOV Office Visit (ORMDNA ) GLOVERRADHA Flor ([id number]) 1940 F Date Time Provider Department 04/27/23 10:00 AM DHEERAJ LANDA During your visit today, we recorded the following information about you: Dheeraj Landa APRN.CNP 04/27/2023 10:11 AM Signed This is a [...] 1 year. All questions answered. Dheeraj Landa APRN.CNP Orthopaedic Surgery Allergies As of Date: 04/27/2023 [...] for Encounter Date Provider Department Center 04/27/2023 [id number] LANDA [facility] Encounter Status:Closed by DHEERAJ LANDA on 04/27/23 [facility] 04-05-2023 JOSE G Telephone (IVIS) RADHA GLOVER ([id number]) 1940 F Date Time Provider Department 04/05/23 [...] it gets worse. Please advise. Dheeraj Landa APRN.CAR VARNISHER 04/06/2023 7:46 AM Signed Okay to stop the exercises I gave her. She should continue the knee flexion exercises and outpatient therapy. She should notify us if pain continues to worsen. Dheeraj Landa APRN.CAR VARNISHER April 06, 2023 7:[address] [...] Fully Assessed Reason for Visit: Patient Question [7187] Patient Update [9274] Prescriptions as of 04/06/2023 - meloxicam (MOBIC) [...] Encounter Status:Closed by RODOLFO PLAZA on 04/06/23 [facility] CNOVon 03-30-2023 CNOV Office Visit (ORMDNA ) RADHA GLOVER ([id number]) 1940 F Date Time Provider Department 03/30/23 1:00 PM DHEERAJ LANDA During your visit today, we recorded the following information about you: Dheeraj Landa APRN.CNP 03/30/2023 1:15 PM S[address] Mrs. Glover is [...] questions answered Dheeraj Landa APRN.CNP Orthopaedic Surgery Allergies As of Date: 03/30/2023 [...] for Encounter Date Provider Department Center 03/30/2023 [id number], STEPHEN [facility] Encounter Status:Closed by DHEERAJ LANDA on 03/30/23 Normal [facility] ANES POSTPROC EVALon 023 ANES POSTPROC EVAL HNO ID: [id number] Author: Batsheva Proctor MD Service: Anesthesiology Author Type: Anesthesiologist Type: Anesthesia Postprocedure Evaluation Filed: 03/22/2023 9:32 AM Note Text: POST ANESTHESIA EVALUATION NOTE : 1940 Procedure Summary Date: 03/22/23 Room / Location: [place] [address] / [place] Anesthesia Start: 721 Anesthesia Stop: 740 Procedure: MANIPULATION KNEE JOINT UNDER GENERAL ANES (Left: Knee) Diagnosis: Arthrofibrosis of total knee arthroplasty, initial encounter ([facility]) (Arthrofibrosis of total knee arthroplasty, initial encounter ([facility]) [T84.82XA]) Surgeons: Brennan Monsivais MD Responsible Provider: Batsheva Proctor MD Anesthesia Type: general ASA Status: 2 Anesthesia Type: general Airway Type: anesthesia mask Last Vitals Vitals Value Taken Time BP 197/85 03/22/23 0811 Temp 36.2 ?C (97.2 ?F) 03/22/23 0811 Pulse 65 03/22/23 0812 Resp 11 03/22/23 0812 SpO2 98 % 03/22/23 08 Vitals shown include unvalidated device data. Post [...] March 22, 2023 TIME: 9:32 AM CSN: [id number] [facility] ANES PRE-OPon 03-22-2023 ANES PRE-OP HNO ID: [id number] Author: Batsheva Proctor MD Service: Anesthesiology Author Type: Anesthesiologist Type: Anesthesia Preprocedure Evaluation Filed: 03/22/2023 7:18 AM Note Text: ANESTHESIOLOGY DAY OF SURGERY NOTE : 1940 Procedure Information Date/Time: 03/22/23729 Procedure: MANIPULATION KNEE JOINT UNDER GENERAL ANES (Left: Knee) Location: [place] / [place] Surgeons: Brennan Monsivais MD Estimated body [...] March 22, 2023 TIME: 6:53 AM CSN: [id number] [facility] BRIEF OP NOTon 03-22-2023 BRIEF OP NOT HNO ID: [id number] Author: Brennan Monsivais MD Service: Orthopaedic Surgery Author Type: Physician Type: Brief Op Note Filed: 03/22/2023 7:48 AM Note Text: BRIEF OPERATIVE / PROCEDURE NOTE LOG ID: [id number] SURGERY/PROCEDURE DATE: 03/22/2023 INCISION/PROCEDURE START TIME: 7:30 AM INCISION CLOSE/PROCEDURE END TIME: 7:33 AM SURGEON(S)/PROCEDURALIST(S) AND BARKING MACHINE FEEDER(S): Surgeon(s) and Role: * Brennan Monsivais MD - Primary * Compa Cortez DO - Resident - Assisting Nurse Practitioner: Dheeraj Landa APRN.CNP Physician Lotus Notes Administrator: Monique Cesar PA-C SURGERY/PROCEDURE(S): FRANCISCO J L knee ANESTHESIA: General FINDINGS: arthrofibrosis ESTIMATED BLOOD LOSS: 0 mls SPECIMENS: None COMPLICATIONS: None POST-OP/POST-PROCEDURE DIAGNOSIS: Same as Preop SIGNATURE: Brennan Monsivais MD PATIENT NAME: Radha Glover DATE: March 22, 2023 TIME: 7:48 AM [facility] HISTORY PHYSICALon HISTORY PHYSICAL HNO ID: [id number] Author: Brennan Monsivais MD Service: Orthopaedic Surgery [...] immediately afterwards. Brennan Monsivais MD Orthopaedic Surgery [facility] OPERATIVE NOon 03-22-2023 OPERATIVE NO HNO ID: [id number] Author: Brennan Monsivais MD Service: Orthopaedic Surgery Author Type: Physician Type: Operative Report Filed: 03/23/2023 6:06 PM Note Text: Operative Report PATIENT NAME: Radha Glover CSN: [id number] LOG ID: [id number] Surgery Date: 03/22/2023 Surgeon(s) and Lotus Notes Administrator(s): Dheeraj Landa PATENT PROSECUTION PARALE[employer] - [employer] Supervisor Surgeon(s) and Role: * Brennan Monsivais MD [...] Arthrofibrosis of total knee arthroplasty, initial encounter ([facility]) [T84.82XA] Postop Diagnosis: Same as Pre-Op Diagnosis Codes: * Arthrofibrosis of total knee arthroplasty, initial encounter ([facility]) [T84.82XA] Implants: * No implants in [...] DATE: March 23, 2023 TIME: 6:05 PM [facility] 03-18-2023 [facility] Office Visit (IVIS ) RADHA GLOVER ([id number]) 1940 F Date Time Provider Department 03/18/23 [...] we will get this scheduled. Dheeraj Landa APRN.[facility] Orthopaedic Surgery Allergies As of Date: [...] days. Take (more content not included)... Normal [facility] Basophil percentageOrdered B y: Dr. Gonzalez on 02-26-2023 Chloride [Moles/Vol] 102 mmol/L 98-107 [facility] Cholesterol [Mass/Vol] 205 mg/dL <200 [facility] Comment on above: <200 mg/dL Desirable 200-240 mg/dL Borderline >240 mg/dL High Risk Glucose [Mass/Vol] 101 mg/dL 74-106 [facility] Comment on above: Fasting Glucose resu lt from 100 to 125 mg/dL suggests IMPAIRED HOMEOSTASIS per A.D.A. criteria. Potassium [Moles/Vol] 4.3 mmol/L 3.5-5.1 [facility] Sodium [Moles/Vol] 135 mmol/L 136-145 [facility] Triglyceride [Mass/Vol] 218 mg/dL <199 [facility] Comment on above: The drugs N-Acetylcy steine and Metamizole may falsely depress this assay.Serum Triglycerides Reference Interval Normal <150 mg/dL Borderline high 150 - 199 mg/dL High 200 - 499 mg/dL Very High > or = 500 mg/dL Laboratory - Chemistry and C hemistry - challengeOrdered By: Dr. Gonzalez on 02-26-2023 CO2 [Moles/Vol] 26.0 mmol/L 21.0-32.0 [facility] Urea nitrogen/Creatinine [Mass ratio] 22.2 mg/mg 10-20 [facility] No Panel InformationOrdered By: Dr. Gonzalez on 02-26-2023 Estimated GFR (MDRD) Amer 72 mL/min >60 [facility] Comment on above: GFR Calc Estimated GFR (MDRD) Non-Af Amer 60 mL/min >60 [facility] Comment on above: Non- GFR Calc Serum or plasma calcium pastor urement (mass/volume)Ordered By: Dr. Gonzalez on 02-26-2023 Calcium [Mass/Vol] 9.7 mg/dL 8.5-10.1 [facility] Serum or plasma cholesterol in HDL measurement (mass/volume)Ordered By: Dr. Gonzalez on 02-26-2023 Cholesterol in HDL [Mass/Vol] 54 mg/dL >40 [facility] Comment on above: The drugs N-Acetylcy steine and Metamizole may falsely depress this assay. Reference Range HDL <40 mg/dL Low HDL Cholesterol HDL >or= 60 mg/dL High HDL Cholesterol Serum or plasma cholesterol in VLDL measurement (mass/volume)Ordered By: Dr. Gonzalez on 02-26-2023 Cholesterol in VLDL [Mass/Vol] 44 mg/dL 5-40 [facility] Serum or plasma creatinine m easurement (mass/volume)Ordered By: Dr. Gonzlaez on 02-26-2023 Creatinine [Mass/Vol] 0.95 mg/dL 0.55-1.02 [facility] Comment on above: The validity of the calculated GFR & GFRAA in patients over 70 years has not been determined. Clinical correlation is essential. Serum or plasma low density lipoprotein (LDL) cholesterol measurement (mass/volume)Ordered By: Dr. Gonzalez on 02-26-2023 Cholesterol in LDL [Mass/Vol] 107 mg/dL 0-130 [facility] Serum or plasma urea nitroge n measurement (mass/volume)Ordered By: Dr. Gonzalez on 02-26-2023 Urea nitrogen [Mass/Vol] 21 mg/dL 7-18 [facility] Thin prep Papanicolaou smear with manual screeningOrdered By: Dr. Gonzalez on 02-26-2023 Thin prep Papanicolaou smear with manual screening 7 5-15 [facility] CNOVon 02-18-2023 CNOV Office Visit (ORMDNA ) RADHA GLOVER ([id number]) 1940 F Date Time Provider Department 02/18/23 [...] of breath Dheeraj Landa APRN.CNP Orthopaedic Surgery Referring Provider: BRENNAN MONSIVAIS [[id number]] Allergies As of Date: 02/18/2023 Noted Allergy [...] CONSULT TO PHYSICAL THERAPY [9032] Order #: [id number]: 1 FUTURE Prescriptions as of 02/19/2023 - [...] Disp R (more content not included)... Normal [facility] XR Knee AP and Lateral and M juan jon 01-17-2023 IMPRESSION: Interval TKA Eyeglass Lens Generator: RHYS Transcribe Date/Time: Jan 17 2023 4:40P Dictated by : DAVIS RYDER MD This examination was interpreted and the report reviewed and electronically signed by: DAVIS RYDER MD on Jan 17 2023 4:41PM [facility] * * *Final Report* * * [...] soft tissue emphysema. Right TKA is evident. [facility] Provider, [place] - 01/17/2023 * * *Final Report* * [...] TKA is evident. IMPRESSION IMPRESSION: Interval TKA Eyeglass Lens Generator: RHYS Transcribe Date/Time: Jan 17 2023 4:40P Dictated by : DAVIS RYDER MD This examination was interpreted and the report reviewed and electronically signed by: DAVIS RYDER MD on Jan 17 2023 4:41PM EST [facility] XR Knee AP and Lateral and M erchantsOrdered By: Ccf Provider on 01-17-2023 [facility] CNOVon 01-14-2023 CNOV Office Visit (IVIS ) RADHA GLOVER ([id number]) 1940 F Date Time Provider Department 01/14/23 [...] swelling, drainage, shortness of breath Dheeraj Landa APRN.[facility] Orthopaedic Surgery Allergies As of Date: 01/14/2023 [...] Status:Closed by DHEERAJ LANDA on 01/14/23 Normal [facility] XR KNEE 3V AP/LAT/MERCHANT L Ton 01-14-2023 [...] Right TKA is evident. IMPRESSION: Interval TKA Eyeglass Lens Generator: PSCPark Transcribe Date/Time: Jan 17 2023 4:40P Dictated by : DAVIS RYDER MD This examination was interpreted and the report reviewed and electronically signed by: DAVIS RYDER MD on Jan 17 2023 4:41PM EST [id number] [facility] XR Knee AP and Lateral and M erchantson 01-14-2023 Radiology Study observation (narrative) [facility] Florencio 01-12-2023 TORON Telephone (HCSIND) RADHA GLOVER ([id number]) 1940 F Date Time Provider Department 01/12/23 KAELYN BLAKE HCSIND During your visit today, we recorded the following information about you: Allergies As of Date: 01/12/2023 Noted Allergy Reaction CODEINE 08/20/2009 8 - GI Upset Comments: Severe vomiting TRAMADOL HCL 02/20/2013 5 - Intolerance Comments: Severe vomiting. CLARITHROMYCIN 02/20/2013 5 - Intolerance Comments: Severe headache HYDROCODONE 02/20/2013 8 - GI Upset Date Reviewed: 01/11/2023 Reviewed by: Kaelyn Blake PT - Fully Assessed Reason for Visit: [...] Encounter Status:Closed by KAELYN BLAKE on 01/12/23 [facility] 01-05-2023 CNPN Telephone (HCSIND) RADHA GLOVER ([id number]) 1940 F Date Time Provider Department 01/05/23 KAELYN BLAKE HCSIND During your visit today, we recorded the [...] 12/11/2022 Encounter Status:Closed by KAELYN BLAKE on 01/05/23 Normal [facility] Basic metabolic 2000 panelon 12-29-2022 Anion gap [Moles/Vol] 7 mmol/L Low -18 [facility] Comment on above: Order Comment: Speci men Type: BLOOD SPECIMENOrdering Facility: [facility] Address: [address] [place] [address] Performed By: #### 2 4321-2 ####[facility] LABORATORYCLIA [id number] [place] [address] [place] Calcium [Mass/Vol] 8.9 mg/dL Normal 8.5-10.2 [facility] Comment on above: Order Comment: Sharoni men Type: BLOOD SPECIMENOrdering Facility: [facility] Address: [address] [place] [address] Performed By: #### 2 4321-2 ####[facility] LABORATORYCLIA [id number] [place] [id number] [place] Chloride [Moles/Vol] 103 mmol/L Normal 97-105 [facility] Comment on above: Order Comment: Speci men Type: BLOOD SPECIMENOrdering Facility: [facility] Address: [address] [place] [address] Performed By: #### 2 4321-2 ####[facility] LABORATORYCLIA [id number] [place] [address] [place] CO2 [Moles/Vol] 28 mmol/L Normal 22-30 [facility] Comment on above: Order Comment: Yanely mendoza Type: BLOOD SPECIMENOrdering Facility: [facility] Address: [address] [place] [address] Performed By: #### 2 4321-2 ####[facility] LABORATORYCLIA [id number] [address] STATES OF [facility] Creatinine [Mass/Vol] 1.06 mg/dL High 0.58-0.96 [facility] Comment on above: Order Comment: Yanely men Type: BLOOD SPECIMENOrdering Facility: [facility] Address: [address] [place] [address] Performed By: #### 2 4321-2 ####[facility]ORATORYCLIA [id number] [address] [place] ESTIMATED GLOMERULAR FILTRATION RATE 52 mL/min/1.73m??? Low >=60 [facility] Comment on above: Order Comment: Yanely mendoza Type: BLOOD SPECIMENOrdering Facility: [facility] Address: [address] [place] [address] Result Comment: Eliana mated Glomerular Filtration Rate [...] actual GFR. Performed By: #### 2 4321-2 ####[facility]ORATORYCLIA [id number] [address] [place] [facility] Glucose [Mass/Vol] 128 mg/dL High 74-99 [facility] Comment on above: Order Comment: Yanely reji Type: BLOOD SPECIMENOrdering Facility: [facility] Address: [place] [place] [address] Result Comment: The [place] Diabetes Association (ADA) provides guidance for cutoff [...] Standards of Medical Care in Diabetes 2016, [place] [employer]. Diabetes Care. 2016.39(Suppl 1). Performed By: #### 2 4321-2 ####[facility] LABORATORYCLIA [id number] [address] [place] [facility] Potassium [Moles/Vol] 4.3 mmol/L Normal 3.7-5.1 [facility] Comment on above: Order Comment: Yanely mendoza Type: BLOOD SPECIMENOrdering Facility: [facility] Address: [address] [place] [address] Performed By: #### 2 4321-2 ####[facility] LABORATORYCLIA [id number] [address] [place] [facility] Sodium [Moles/Vol] 138 mmol/L Normal 136-144 [facility] Comment on above: Order Comment: Yanely mendoza Type: BLOOD SPECIMENOrdering Facility: [facility] Address: [address] [place] [address] Performed By: #### 2 4321-2 ####[facility] LABORATORYCLIA [id number] [address] Urea nitrogen [Mass/Vol] 18 mg/dL Normal 7-21 [facility] Comment on above: Order Comment: Yanely mendoza Type: BLOOD SPECIMENOrdering Facility: [facility] Address: [address] [place] [address] Performed By: #### 2 4321-2 ####MC[facility] LABORATORYCLIA [id number] [address] OF [facility] CASE MANAGEMon 12-29-2022 CASE MANAGEM HNO ID: [id number] Author: Mayda Briscoe RN Service: ? Author Type: Registered Nurse Type: Care Mgt Progress Note Filed: 12/29/2022 12:08 PM Note Text: CARE MANAGEMENT DISCHARGE NOTE SERVICE DATE: December 29, 2022 SERVICE TIME: 12:07 PM Admission Date: 12/28/2022 LOS: 0 days Discharge Arrangement Discharge Arrangement: Home with Home Health Services Arranged Medical Services: Skilled Home Health Care Type: Physical Therapy Provider Name: [facility] Caregiver Assessment Caregiver is ready, willing and able to meet the patient's needs as recommended by the inter-professional team: Yes Name of Caregiver: Daughter Transportation Arrangements Transportation Arrangements: Car- Daughter to transport Handoff Communication: Handoff to: Primary Care Physician Primary Care Physician Name/Phone: Dr.Paul Gonzalez- [phone] Additional Information: Discharge order written for today. [facility] will be seeing the patient for Home PT with a start of care within 24-48 hours. Notified [facility] of the patients discharge home today. Discharge Information Row Name Admission (Current) from 12/28/[address] Care Agency [facility] Start of Care -- Within 24-48 hours SIGNATURE: Mayda Briscoe RN PATIENT NAME: Radha Glover DATE: December 29, 2022 TIME: 12:07 PM CONTACT #: [phone] [facility] CASE MGT INIT Juan Daniel 2022 CASE MGT INIT [facility] HNO ID: [id number] Author: Mayda Briscoe RN Service: ? Author [...] OT/PT Advance Directives Current Advance Directive: None Department Store Manager Attempted to Assist with AD Completion: Yes [...] Cane Discharge Planning Patient Goal(s): Better mobility [place] of Choice Explained: [place] of Choice Given: Yes Level of Care [...] PT recommendations with the patient. Referral to [facility] and they are able to accept. CM department will continue to follow for DC needs. SIGNATURE: Mayda Briscoe RN PATIENT NAME: Radha Glover DATE: December 29, 2022 TIME: 10:31 AM CONTACT #: [phone] Normal [facility] CBC panel Auto (Bld)on 12-29 Erythrocyte distribution width (RBC) [Ratio] 12.3 % Normal 11.5-15.0 [facility] Comment on above: Order Comment: Yanely mendoza Type: BLOOD SPECIMENOrdering Facility: [facility] Address: [address] [place] [address] Performed By: #### 5 8410-2 ####[facility] LABORATORYCLIA [id number] [address] [place] Hematocrit (Bld) [Volume fraction] 32.6 % Low 36.0-46.0 [facility] Comment on above: Order Comment: Yanely mendoza Type: BLOOD SPECIMENOrdering Facility: [facility] Address: [address] [place] [address] Performed By: #### 5 8410-2 ####[facility] LABORATORYCLIA [id number] [place] [address] [place] Hemoglobin (Bld) [Mass/Vol] 10.8 g/dL Low 11.5-15.5 [facility] Comment on above: Order Comment: Yanely mendoza Type: BLOOD SPECIMENOrdering Facility: [facility] Address: [address] [address] Performed By: #### 5 8410-2 ####[facility] LABORATORYCLIA [id number] [address] MCH (RBC) [Entitic mass] 30.5 pg Normal 26.0-34.0 [facility] Comment on above: Order Comment: Speci men Type: BLOOD SPECIMENOrdering Facility: [facility] Address: [address] [address] Performed By: #### 5 8410-2 ####[facility] LABORATORYCLIA [id number] [address] MCHC (RBC) [Mass/Vol] 33.1 g/dL Normal 30.5-36.0 [facility] Comment on above: Order Comment: Speci men Type: BLOOD SPECIMENOrdering Facility: [facility] Address: [address] [place] [address] Performed By: #### 5 8410-2 ####[facility] LABORATORYCLIA [id number] [address] MCV (RBC) [Entitic vol] 92.1 fL Normal 80.0-100.0 [facility] Comment on above: Order Comment: Speci men Type: BLOOD SPECIMENOrdering Facility: [facility] Address: [address] [place] [address] Performed By: #### 5 8410-2 ####[facility] LABORATORYCLIA [id number] [address] Nucleated RBC (Bld) [#/Vol] 10*3/uL Normal <0.01 [facility] Comment on above: Order Comment: Speci men Type: BLOOD SPECIMENOrdering Facility: [facility] Address: [address] [place] [address] Performed By: #### 5 8410-2 ####[facility] LABORATORYCLIA [id number] [address] Platelet mean volume (Bld) [Entitic vol] 10.7 fL Normal 9.0-12.7 [facility] Comment on above: Order Comment: Speci men Type: BLOOD SPECIMENOrdering Facility: [facility] Address: [address] [place] [address] Performed By: #### 5 8410-2 ####[facility] LABORATORYCLIA [id number] [address] Platelets (Bld) [#/Vol] 216 10*3/uL Normal 150-400 [facility] Comment on above: Order Comment: Speci men Type: BLOOD SPECIMENOrdering Facility: [facility] Address: [address] [place] [address] Performed By: #### 5 8410-2 ####[facility] LABORATORYCLIA [id number] [place] [address] [place] RBC (Bld) [#/Vol] 3.54 10*6/uL Low 3.90-5.20 [facility] Comment on above: Order Comment: Speci men Type: BLOOD SPECIMENOrdering Facility: [facility] Address: [address] [place] [address] Performed By: #### 5 8410-2 ####[facility] LABORATORYCLIA [id number] [address] WBC (Bld) [#/Vol] 10.86 10*3/uL Normal 3.70-11.00 [facility] Comment on above: Order Comment: Speci men Type: BLOOD SPECIMENOrdering Facility: [facility] Address: [address] [place] [address] Performed By: #### 5 8410-2 ####[facility] LABORATORYCLIA [id number] [address] [place] CNCOon 12-29-2022 CNCO Letter Text Normal [facility] CNPNon 12-29-2022 TORON Telephone (HCSIND) GLOVERRADHA CAPPS ([id number]) 1940 F Date Time Provider Department 12/29/22 DAYLIN KAYKAYDRA YOUNG During your visit today, we recorded the following information about you: KAILEE Ross 12/29/2022 10:45 AM Signed Welcome Home Call: a. Date and Time: 10:36 AM 12/29/2022 b. Contact name/relationship: Patient c. Have you been active with any Home Care company in the last 60 days(such as help with bathing, filling medications, checking your blood pressure) ? No. d. [facility] will be providing your care, [...] maintain a safe environment for our caregivers, [facility] requires any animals or weapons present in the home be located in a secured location. Our clinicians will call you the night before or the morning of the appointment. Their # may come up restricted but they'll leave a VM for you. In case you have any questions or concerns in the meantime, our # is [phone], option 5 Thank you for your time and have a great day. KAILEE Ross Allergies As of Date: 12/29/2022 Noted Allergy [...] Encounter Nu (more content not included)... Normal [facility] THERAPY NTon 12-29-2022 THERAPY NT HNO ID: [id number] Author: Lela Day PTA Service: Physical Therapy Author Type: Cupola Patcher Type: Therapy (PT/OT/Speech/Resp) Filed: 12/29/2022 1:25 PM Note Text: Attestation signed by Rima Hastings PT at 12/29/2022 4:58 PM I reviewed and agree with the documentation corresponding to this therapy visit. SIGNATURE: Rima Hastings PT DATE: December 29, 2022 TIME: 4:58 PM Physical Therapy Treatment SERVICE DATE: 12/29/2022 SERVICE TIME: 1245 to 1313 ROOM: [id number] Recommended Discharge Disposition: Home PT Recommended Discharge [...] Assistance Available: PRN, Other: See Comment Comments: dtgrady Janeen lives nearby Entry To Home: No [...] may require occasi (more content not included)... [facility] THERAPY NT HNO ID: [id number] Author: Aris Montague OT/L Service: ? Author Type: Occupational Therapist Type: Therapy (PT/OT/Speech/Resp) Filed: 12/29/2022 11:25 AM Note Text: Occupational Therapy Evaluation SERVICE DATE: 12/29/2022 SERVICE TIME: 1020 to 1116 ROOM: [id number] Recommended Discharge Disposition: Home OT Anticipated Discharge [...] flat bed, educated on use of leg fish cake maker Scooting Sit to Stand Contact Guard Assistance [...] limited postural sway (more content not included)... Normal [facility] THERAPY NT HNO ID: [id number] Author: Rima Hastings PT Service: Physical Therapy Author Type: Physical Therapist Type: Therapy (PT/OT/Speech/Resp) Filed: 12/29/2022 10:44 AM Note Text: Physical Therapy Evaluation SERVICE DATE: 12/29/2022 SERVICE TIME: 839 to 954 ROOM: [id number] Recommended Discharge Disposition: Home PT Recommended Discharge [...] functional mobility simulating home needs. Patient is [place] however able to confirm understanding of education [...] recommendation for ingrid (more content not included)... [facility] ANES POSTPROC EVALon 023 ANES POSTPROC EVAL HNO ID: [id number] Author: Jhonny Peck MD Service: Anesthesiology Author Type: Anesthesiologist Type: Anesthesia Postprocedure Evaluation Filed: 12/28/2022 3:19 PM Note Text: POST ANESTHESIA EVALUATION NOTE : 1940 Procedure Summary Date: 12/28/22 Room / Location: MT OR / MT OR Anesthesia Start: 1055 Anesthesia Stop: 1350 [...] December 28, 2022 TIME: 3:19 PM CSN: [id number] [facility] ANES PRE-OPon 12-28-2022 ANES PRE-OP HNO ID: [id number] Author: Batsheva Proctor MD Service: Anesthesiology Author Type: Anesthesiologist Type: Anesthesia Preprocedure Evaluation Filed: 12/28/2022 10:55 AM Note Text: ANESTHESIOLOGY DAY OF SURGERY NOTE : 1940 Procedure Information Date/Time: 12/28/22 1155 Procedure: ARTHROPLASTY REPLACE JOINT TOTAL KNEE (Left: Knee) Location: [place] [address] / [place] Surgeons: Brennan Monsivais MD Estimated body [...] December 28, 2022 TIME: 9:52 AM CSN: [id number] [facility] [id number] Author: Stephen Hughes PA-C Service: Orthopaedic Surgery Author Type: Physician Lotus Notes Administrator Type: Discharge Summary Filed: 12/29/2022 10:00 AM [...] These instructions explain what you or your health care facilities inspector need to do to continue your care at home or at another healthcare facility Please go over these instructions with your nurse and health care facilities inspector. If you are not sure about something, [...] fevers, ch (more content not included)... Normal [facility] CONSULTon 12-28-2022 CONSULT HNO ID: [id number] Author: González Younger MD Service: General Internal Medicine Author Type: Physician Type: Consults Filed: 12/29/2022 8:06 PM Note Text: [facility]- Consultation RADHA GLOVER : 1940 AGE: 82 SEX: F ACCTNUM: [id number] HOSP SVC: ORTS LOCATION: [address] ATTENDING PHYSICIAN: BRENNAN MONSIVAIS DATE OF SERVICE: [...] and daughter. González Younger M.D. Internal Medicine SKJ:[id number] [facility] NURSING PROGon 12-28-2022 NURSING PROG HNO ID: [id number] Author: Anastasiia Coreas, COSTA Service: ? Author Type: Registered Nurse Type: [...] block done preop by dr proctor and [facility] skin prep done by dr proctor 1032 block completed 1036 informed consent signed for left knee replacement [facility] OPERATIVE NOon 12-28-2022 OPERATIVE NO HNO ID: [id number] Author: Brennan Monsivais MD Service: Orthopaedic Surgery Author Type: Physician Type: Operative Report Filed: 12/28/2022 1:19 PM Note Text: Operative Report PATIENT NAME: Radha Glover CSN: [id number] LOG ID: [id number] Surgery Date: 12/28/2022 Surgeon(s) and Lotus Notes Administrator(s): Dheeraj Landa PATENT PROSECUTION PARALEGAL - Truck Shop Supervisor Surgeon(s) and Role: * Brennan Monsivais MD [...] performed all critical portions of the case. health care legal assistant was necessary for safe patient positioning, sterile [...] was performe (more content not included)... Normal [facility] ECHOon 12-22-2022 Echocardiography Echocardiography Rep ort: Transthoracic Echo [facility] Date of service: 12/22/2022 9:42:43 AM MAKER Ordering physician: KRISTINE MASON Indication: Pre op clearance Technologist: Brenda Elias [facility] Interpreting physician: Anderson Luis DO PATIENT: Name: [...] * * Final * * * CC [facility] Image : [id number] [employer]SISUID Normal [facility] CBC W Auto Differential pane l (Bld)on 12-11-2022 Basophils (Bld) [#/Vol] 10*3/uL Normal <0.11 [facility] Comment on above: Order Comment: Speci men Type: BLOOD SPECIMENOrdering Facility: [facility] Address: [address] [address] Performed By: #### 5 7021-8 ####[facility] HOSPITALA [id number] [place] [address] [place] Basophils/100 WBC (Bld) 0.4 % Normal [facility] Comment on above: Order Comment: Speci men Type: BLOOD SPECIMENOrdering Facility: [facility] Address: [address] [address] Performed By: #### 5 7021-8 ####[facility] HOSPITALLIA [id number] [place] [address] [place] Differential cell count method Nom (Bld) Auto Normal [facility] Comment on above: Order Comment: Speci men Type: BLOOD SPECIMENOrdering Facility: [facility] Address: [address] [place] [address] Performed By: #### 5 7021-8 ####[facility]NC[facility] [id number] [place] [address] [place] Eosinophils (Bld) [#/Vol] 0.16 10*3/uL Normal <0.46 [facility] Comment on above: Order Comment: Speci men Type: BLOOD SPECIMENOrdering Facility: [facility] Address: [address] [place] [address] Performed By: #### 5 7021-8 ####[facility] [id number] [place] [address] [place] Eosinophils/100 WBC (Bld) 2.9 % Normal [facility] Comment on above: Order Comment: Speci men Type: BLOOD SPECIMENOrdering Facility: [facility] Address: [address] [place] [address] Performed By: #### 5 7021-8 ####[facility] [id number] [place] [address] [place] Erythrocyte distribution width (RBC) [Ratio] 12.6 % Normal 11.5-15.0 [facility] Comment on above: Order Comment: Speci men Type: BLOOD SPECIMENOrdering Facility: [facility] Address: [address] [place] [address] Performed By: #### 5 7021-8 ####[facility] [id number] [place] [address] [place] Hematocrit (Bld) [Volume fraction] 39.0 % Normal 36.0-46.0 [facility] Comment on above: Order Comment: Speci men Type: BLOOD SPECIMENOrdering Facility: [facility] Address: [address] [address] Performed By: #### 5 7021-8 ####[facility] [place] KARENGloNCVARUN [id number] [place] [address] [place] Hemoglobin (Bld) [Mass/Vol] 12.9 g/dL Normal 11.5-15.5 [facility] Comment on above: Order Comment: Speci men Type: BLOOD SPECIMENOrdering Facility: [facility] Address: [address] [place] [address] Performed By: #### 5 7021-8 ####[facility] [id number] [place] [address] [place] Immature granulocytes (Bld) [#/Vol] 10*3/uL Normal <0.10 [facility] Comment on above: Order Comment: Speci men Type: BLOOD SPECIMENOrdering Facility: [facility] Address: [address] [place] [address] Performed By: #### 5 7021-8 ####[facility]IOR[facility] HEALTH SERVICESNCLIA [id number] [place] [address] [place] Immature granulocytes/100 WBC (Bld) 0.2 % Normal [facility] Comment on above: Order Comment: Speci men Type: BLOOD SPECIMENOrdering Facility: [facility] Address: [address] [place], [place] [address] Performed By: #### 5 7021-8 ####[facility]IOR[facility] HEALTH SERVICESNCLIA [id number] [place] [address] [place] Lymphocytes (Bld) [#/Vol] 1.84 10*3/uL Normal 1.00-4.00 [facility] Comment on above: Order Comment: Speci men Type: BLOOD SPECIMENOrdering Facility: [facility] Address: [address] [place], [place] [address] Performed By: #### 5 7021-8 ####[facility] KARENWROXANELIA [id number] [place] [address] [place] Lymphocytes/100 WBC (Bld) 33.5 % Normal [facility] Comment on above: Order Comment: Speci men Type: BLOOD SPECIMENOrdering Facility: [facility] Address: [address] [place] [address] Performed By: #### 5 7021-8 ####[facility] HEALTH SERVICESMIRTHAA [id number] [place] [address] [place] MCH (RBC) [Entitic mass] 30.6 pg Normal 26.0-34.0 [facility] Comment on above: Order Comment: Speci men Type: BLOOD SPECIMENOrdering Facility: [facility] Address: [address] [place] [address] Performed By: #### 5 7021-8 ####[facility]AVIORAL HEALTH SERVICESGAMALIEL [id number] [place] [address] [place] MCHC (RBC) [Mass/Vol] 33.1 g/dL Normal 30.5-36.0 [facility] Comment on above: Order Comment: Speci men Type: BLOOD SPECIMENOrdering Facility: [facility] Address: [address] [place] [address] Performed By: #### 5 7021-8 ####[facility]IOR[facility] HEALTH SERVICESGAMALIEL [id number] [place] [address] [place] MCV (RBC) [Entitic vol] 92.6 fL Normal 80.0-100.0 [facility] Comment on above: Order Comment: Speci men Type: BLOOD SPECIMENOrdering Facility: [facility] Address: [address] [place] [address] Performed By: #### 5 7021-8 ####[facility]IOR[facility] HEALTH SERVICESNCLIA [id number] [place] [address] [place] Monocytes (Bld) [#/Vol] 0.49 10*3/uL Normal <0.87 [facility] Comment on above: Order Comment: Speci men Type: BLOOD SPECIMENOrdering Facility: [facility] Address: [address] [place] [address] Performed By: #### 5 7021-8 ####[facility] HEALTH SERVICESNCLIA [id number] [place] [address] [place] Monocytes/100 WBC (Bld) 8.9 % Normal [facility] Comment on above: Order Comment: Speci men Type: BLOOD SPECIMENOrdering Facility: [facility] Address: [address] [place] [address] Performed By: #### 5 7021-8 ####[facility] HEALTH SERVICESNCLIA [id number] [place] [address] [place] Neutrophils (Bld) [#/Vol] 2.98 10*3/uL Normal 1.45-7.50 [facility] Comment on above: Order Comment: Speci men Type: BLOOD SPECIMENOrdering Facility: [facility] Address: [address] [place] [address] Performed By: #### 5 7021-8 ####[facility]ITAL[facility] [id number] [place] [address] [place] Neutrophils/100 WBC (Bld) 54.1 % Normal [facility] Comment on above: Order Comment: Speci men Type: BLOOD SPECIMENOrdering Facility: [facility] Address: [address] [place] [address] Performed By: #### 5 7021-8 ####[facility] HE[facility] SERVICESNCLIA [id number] [place] [address] [place] Nucleated RBC (Bld) [#/Vol] 10*3/uL Normal <0.01 [facility] Comment on above: Order Comment: Speci men Type: BLOOD SPECIMENOrdering Facility: [facility] Address: [address] [place] [address] Performed By: #### 5 7021-8 ####[facility] KARENGloNCVARUN [id number] [place] [address] [place] Nucleated RBC/100 WBC (Bld) [Ratio] 0.0 /100 WBC Normal [facility] Comment on above: Order Comment: Speci men Type: BLOOD SPECIMENOrdering Facility: [facility] Address: [address] [place] [address] Performed By: #### 5 7021-8 ####[facility] HE[facility] SERVICESNCLIA [id number] [place] [address] [place] Platelet mean volume (Bld) [Entitic vol] 10.2 fL Normal 9.0-12.7 [facility] Comment on above: Order Comment: Speci men Type: BLOOD SPECIMENOrdering Facility: [facility] Address: [address] [place] [address] Performed By: #### 5 7021-8 ####[facility] HE[facility] SERVICESNCLIA [id number] [place] [address] [place] Platelets (Bld) [#/Vol] 252 10*3/uL Normal 150-400 [facility] Comment on above: Order Comment: Speci men Type: BLOOD SPECIMENOrdering Facility: [facility] Address: [address] [place] [address] Performed By: #### 5 7021-8 ####[facility] SERVICESNCLIA [id number] [place] [address] [place] RBC (Bld) [#/Vol] 4.21 10*6/uL Normal 3.90-5.20 [facility] Comment on above: Order Comment: Speci men Type: BLOOD SPECIMENOrdering Facility: [facility] Address: [address] [place] [address] Performed By: #### 5 7021-8 ####[facility] HOSPITALWNCLIA [id number] [address] [place] WBC (Bld) [#/Vol] 5.50 10*3/uL Normal 3.70-11.00 [facility] Comment on above: Order Comment: Speci men Type: BLOOD SPECIMENOrdering Facility: [facility] Address: [address] [place] [id number] Performed By: #### 5 7021-8 ####[facility] HE[facility] SERVICESNCLIA [id number] [address] [place] Basophils (Bld) [#/Vol] <0.11 k/uL [facility] Basophils/100 WBC (Bld) 0.4 % [facility] Differential cell count method Nom (Bld) Auto [facility] Eosinophils (Bld) [#/Vol] 0.16 10*3/uL <0.46 k/uL [facility] Eosinophils/100 WBC (Bld) 2.9 % [facility] Erythrocyte distribution width (RBC) [Ratio] 12.6 % 11.5 - 15.0 % [facility] Hematocrit (Bld) [Volume fraction] 39.0 % 36.0 - 46.0 % [facility] Hemoglobin (Bld) [Mass/Vol] 12.9 g/dL 11.5 - 15.5 g/dL [facility] Immature granulocytes (Bld) [#/Vol] <0.10 k/uL [facility] Immature granulocytes/100 WBC (Bld) 0.2 % [facility] Lymphocytes (Bld) [#/Vol] 1.84 10*3/uL 1.00 - 4.00 k/uL [facility] Lymphocytes/100 WBC (Bld) 33.5 % [facility] MCH (RBC) [Entitic mass] 30.6 pg 26.0 - 34.0 pg [facility] MCHC (RBC) [Mass/Vol] 33.1 g/dL 30.5 - 36.0 g/dL [facility] MCV (RBC) [Entitic vol] 92.6 fL 80.0 - 100.0 fL [facility] Monocytes (Bld) [#/Vol] 0.49 10*3/uL <0.87 k/uL [facility] Monocytes/100 WBC (Bld) 8.9 % [facility] Neutrophils (Bld) [#/Vol] 2.98 10*3/uL 1.45 - 7.50 k/uL [facility] Neutrophils/100 WBC (Bld) 54.1 % [facility] Nucleated RBC (Bld) [#/Vol] <0.01 k/uL [facility] Nucleated RBC/100 WBC (Bld) [Ratio] 0.0 /100 WBC [facility] Platelet mean volume (Bld) [Entitic vol] 10.2 fL 9.0 - 12.7 fL [facility] Platelets (Bld) [#/Vol] 252 10*3/uL 150 - 400 k/uL [facility] RBC (Bld) [#/Vol] 4.21 10*6/uL 3.90 - 5.2 0 m/uL [facility] WBC (Bld) [#/Vol] 5.50 10*3/uL 3.70 - 11. 00 k/uL [facility] Comprehensive metabolic 2000 panelon 12-11-2022 Albumin [Mass/Vol] 4.2 g/dL Normal 3.9-4.9 [facility] Comment on above: Order Comment: Speci men Type: BLOOD SPECIMENOrdering Facility: [facility] Address: [address] [address] Performed By: #### 2 4323-8 ####[facility] [id number] [address] OF [facility] ALP [Catalytic activity/Vol] 115 U/L Normal 34-123 [facility] Comment on above: Order Comment: Speci men Type: BLOOD SPECIMENOrdering Facility: [facility] Address: [address] [address] Performed By: #### 2 4323-8 ####[facility] [facility] [id number] [address] OF [facility] ALT [Catalytic activity/Vol] 12 U/L Normal 7-38 [facility] Comment on above: Order Comment: Speci men Type: BLOOD SPECIMENOrdering Facility: [facility] Address: [address] [place] [address] Performed By: #### 2 4323-8 ####[facility]ITALWNCLIA [id number] [place] [address] [place] Anion gap [Moles/Vol] 7 mmol/L Low 9-18 [facility] Comment on above: Order Comment: Speci men Type: BLOOD SPECIMENOrdering Facility: [facility] Address: [address] [place] [address] Performed By: #### 2 4323-8 ####[facility] HE[facility] SERVICESNCLIA [id number] [place] [address] [place] AST [Catalytic activity/Vol] 18 U/L Normal 13-35 [facility] Comment on above: Order Comment: Speci men Type: BLOOD SPECIMENOrdering Facility: [facility] Address: [address] [place] [address] Performed By: #### 2 4323-8 ####[facility] [id number] [place] [address] [place] Bilirubin [Mass/Vol] 0.2 mg/dL Normal 0.2-1.3 [facility] Comment on above: Order Comment: Speci men Type: BLOOD SPECIMENOrdering Facility: [facility] Address: [address] [place] [address] Performed By: #### 2 4323-8 ####[facility]IOR[facility] HEALTH SERVICESNCLIA [id number] [place] [address] [place] Calcium [Mass/Vol] 9.6 mg/dL Normal 8.5-10.2 [facility] Comment on above: Order Comment: Speci men Type: BLOOD SPECIMENOrdering Facility: [facility] Address: [address] [address] Performed By: #### 2 4323-8 ####[facility]ITALWNCLIA [id number] [place] [address] [place] Chloride [Moles/Vol] 103 mmol/L Normal 97-105 [facility] Comment on above: Order Comment: Speci men Type: BLOOD SPECIMENOrdering Facility: [facility] Address: [address] [place] [address] Performed By: #### 2 4323-8 ####[facility] HE[facility] SERVICESNCLIA [id number] [place] [address] [place] CO2 [Moles/Vol] 28 mmol/L Normal 22-30 [facility] Comment on above: Order Comment: Speci men Type: BLOOD SPECIMENOrdering Facility: [facility] Address: [address] [place] [address] Performed By: #### 2 4323-8 ####[facility]OSPITALLIA [id number] [place] [address] [place] Creatinine [Mass/Vol] 1.15 mg/dL High 0.58-0.96 [facility] Comment on above: Order Comment: Speci men Type: BLOOD SPECIMENOrdering Facility: [facility] Address: [address] [place] [address] Performed By: #### 2 4323-8 ####[facility] HOSPITALLIA [id number] [place] [address] [place] ESTIMATED GLOMERULAR FILTRATION RATE 47 mL/min/1.73m??? Low >=60 [facility] Comment on above: Order Comment: Speci men Type: BLOOD SPECIMENOrdering Facility: [facility] Address: [address] [place] [address] Result Comment: Eliana mated Glomerular Filtration Rate [...] actual GFR. Performed By: #### 2 4323-8 ####[facility]ITALWNCLIA [id number] [place] [address] [place] Glucose [Mass/Vol] 115 mg/dL High 74-99 [facility] Comment on above: Order Comment: Yanely mendoza Type: BLOOD SPECIMENOrdering Facility: [facility] Address: [address] [phone] Result Comment: The [place] Diabetes Association (ADA) provides guidance for cutoff [...] Standards of Medical Care in Diabetes 2016, [place] Diabetes Association. Diabetes Care. 2016.39(Suppl 1). Performed By: #### 2 4323-8 ####[facility] HE[facility] SERVICESNCLIA [id number] [place] [address] [place] Potassium [Moles/Vol] 4.4 mmol/L Normal 3.7-5.1 [facility] Comment on above: Order Comment: Yanely mendoza Type: BLOOD SPECIMENOrdering Facility: [facility] Address: [place] [address] Performed By: #### 2 4323-8 ####[facility] HE[facility] SERVICESNCLIA [id number] [place] [address] [place] Protein [Mass/Vol] 6.9 g/dL Normal 6.3-8.0 [facility] Comment on above: Order Comment: Speci men Type: BLOOD SPECIMENOrdering Facility: [facility] Address: [address] [address] Performed By: #### 2 4323-8 ####[facility] SERVICESNC[facility] [id number] [place] [address] [place] Sodium [Moles/Vol] 138 mmol/L Normal 136-144 [facility] Comment on above: Order Comment: Speci men Type: BLOOD SPECIMENOrdering Facility: [facility] Address: [address] [address] Performed By: #### 2 4323-8 ####[facility] SERVICESNC[facility] [id number] [place] [address] [place] Urea nitrogen [Mass/Vol] 23 mg/dL High 7-21 [facility] Comment on above: Order Comment: Speci men Type: BLOOD SPECIMENOrdering Facility: [facility] Address: [address] [address] Performed By: #### 2 4323-8 ####[facility] HOSPITALLI [id number] [place] [address] [place] Albumin [Mass/Vol] 4.2 g/dL 3.9 - 4.9 g/dL [facility] ALP [Catalytic activity/Vol] 115 U/L 34 - 123 U/L [facility] ALT [Catalytic activity/Vol] 12 U/L 7 - 38 U/L [facility] Anion gap [Moles/Vol] 7 mmol/L Low 9 - 18 mmol/L [facility] AST [Catalytic activity/Vol] 18 U/L 13 - 35 U/L [facility] Bilirubin [Mass/Vol] 0.2 mg/dL 0.2 - 1 .3 mg/dL [facility] Calcium [Mass/Vol] 9.6 mg/dL 8.5 - 10. 2 mg/dL [facility] Chloride [Moles/Vol] 103 mmol/L 97 - 10 5 mmol/L [facility] CO2 [Moles/Vol] 28 mmol/L 22 - 30 mmol/L [facility] Creatinine [Mass/Vol] 1.15 mg/dL High 0.58 - 0.96 mg/dL [facility] Estimated Glomerular Filtration Rate 47 mL/min/1.73m Low >=60 mL/min/1.73m [facility] Glucose [Mass/Vol] 115 mg/dL High 74 - 99 mg/dL [facility] Potassium [Moles/Vol] 4.4 mmol/L 3.7 - 5.1 mmol/L [facility] Protein [Mass/Vol] 6.9 g/dL 6.3 - 8.0 g/dL [facility] Sodium [Moles/Vol] 138 mmol/L 136 - 144 mmol/L [facility] Urea nitrogen [Mass/Vol] 23 mg/dL High 7 - 21 mg/dL [facility] [id number] 12-11-2022 ECG01 Ventricular Rate : 6 9 BPM Atrial Rate : 69 BPM P-R Interval : 130 ms QRS Duration : 82 ms Q-T Interval : 398 ms QTC Calculation(Bazett) : 426 ms Calculated P [place] : -2 degrees Calculated R [place] : 26 degrees Calculated T [place] : 63 degrees NORMAL SINUS RHYTHM NORMAL ECG Confirmed by NUBIA HOWELL DO ([id number]) on 04/05/2023 4:07:42 PM NAME : RADHA GLOVER PID : [id number] : 1940 Gender : Female Race : ORD : Procedure Date : Dec 11 2022 15:10:17 Edit Date : Apr 05 2023 16:07:44 Diagnosis: NORMAL SINUS RHYTHM NORMAL ECG Confirmed by NUBIA HOWELL DO ([id number]) on 04/05/2023 4:07:42 PM Test Reason : Location : 636 : [facility] Overread By : NUBIA HOWELL DO Edited By : NUBIA HOWELL DO Referred By : , Acquired by : Sukhdeep rivas [facility] ECG01 Ventricular Rate : 6 9 BPM Atrial Rate : 69 BPM P-R Interval : 130 ms QRS Duration : 82 ms Q-T Interval : 398 ms QTC Calculation(Bazett) : 426 ms Calculated P [place] : -2 degrees Calculated R [place] : 26 degrees Calculated T [place] : 63 degrees NORMAL SINUS RHYTHM NORMAL ECG Confirmed by NUBIA HOWELL DO ([id number]) on 12/16/2022 4:18:14 PM NAME : RADHA GLOVER PID : [id number] : 1940 Gender : Female Race : ORD : Procedure Date : Dec 11 2022 15:10:17 Edit Date : Dec 16 2022 16:18:18 Diagnosis: NORMAL SINUS RHYTHM NORMAL ECG Confirmed by NUBIA HOWELL DO ([id number]) on 12/16/2022 4:18:14 PM Test Reason : Location : 636 : [facility] Overread By : NUBIA HOWELL DO Edited By : NUBIA HOWELL DO Referred By : BRENNAN MONSIVAIS Acquired by : Sukhdeep rivas [facility] HISTORY PHYSICALon HISTORY PHYSICAL HNO ID: [id number] Author: Kristine Mason APRN.CAR VARNISHER Service: ? Author Type: Nurse Practitioner Type: [...] fevers. Neurological: No history of TIA's, stroke, HAND PACKAGER tumor, impaired sensorium, hemiplegia, paraplegia or quadraplegia. No neurological symptoms or problems. Respiratory: No history of current cough or dyspnea, or pneumonia in the past 6 weeks. No history of respiratory/pulmonary symptoms or problems. Cardiovascular: Positive for: hypertension (on rx) Negative for: anticoagulation therapy, arrhythmia, atrial fibrillation, CAD, chest pain, CHF, congenital heart defect, DVT/PE, hyperlipidemia, recent IN, murmur/valvular heart disease, open heart surgery and valve surgery. GI: Positive for: GERD (otc rx as needed) Negative for: abdominal pain, dysphagia, hepatitis, irritable bowel syndrome, inflammatory bowel disease, liver disease, nausea, pancreatitis, vomiting and ETOH >2 drinks/day. : No history of dysuria, frequency or incontinence, stones or chronic kidney disease. No difficulty urinating, nocturia > 1 time per night or hematuria. 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 Endocrine: No history of diabetes. Has not taken steroids within the past 30 days. No history of endocrinological symptoms or problems. Hematology: Positive for: chronic anti-coagulation/platelet meds. Patient is on anti-coagulation/platelet medication(s): Aspirin. Negative for: anemia, brui (more content not included)... Normal [facility] TYPE AND SCREEN,30 DAYon ABO O Normal [facility] Comment on above: Order Comment: Speci men Type: BLOOD SPECIMENOrdering Facility: [facility] Address: [address] [place] [address] Performed By: #### T SCR30 ####[facility] BLOOD BANKCLIA [id number] [address] [place] HISTORICAL AB SCR STATUS Negative Normal [facility] Comment on above: Order Comment: Speci men Type: BLOOD SPECIMENOrdering Facility: [facility] Address: [address] [place] [address] Performed By: #### T SCR30 ####[facility] MAIN BLOOD BANKCLIA [id number] [address] [place] Rh Nom (Bld) Positive Normal [facility] Comment on above: Order Comment: Speci men Type: BLOOD SPECIMENOrdering Facility: [facility] Address: [address] [place] [address] [place] [address] Performed By: #### T SCR30 ####[facility]ANK[facility] [id number] [facility] [id number] [id number] [facility] Florencio 12-08-2022 CNPN Telephone (MT2E) RADHA GLOVER ([id number]) 1940 F Date Time Provider Department 12/08/22 BRENNAN MONSIVAIS During your visit today, we recorded the following information about you: KAILEE Landry 12/16/2022 11:50 AM Signed TOTAL JOINT COMPLETE CARE PROGRAM PRE-OPERATIVE TEACHING Service D/ate: 12/16/2022 Service Time: 11:33 AM Date of : 1940 Gender: female Date of Surgery: 12/28/22 Procedure: Left Total Knee Replacement Complete Care Program was discussed with the patient: Prepress Manager Identification: 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 Gonzalez on 11-16-2022 Lymphocytes Auto (Unsp spec) [#/Vol] 1.31 10*3/uL 0.83-4.51 [facility] Basophil percentageOrdered B y: Dr. Gonzalez on 11-16-2022 Basophils/100 WBC (Bld) 0.2 % 0-1 [facility] Chloride [Moles/Vol] 103 mmol/L 98-107 [facility] Cholesterol [Mass/Vol] 257 mg/dL <200 [facility] Comment on above: <200 mg/dL Desirable 200-240 mg/dL Borderline >240 mg/dL High Risk Eosinophils/100 WBC (Bld) 2.1 % 0-5 [facility] Glucose [Mass/Vol] 137 mg/dL 74-106 [facility] Comment on above: Fasting Glucose resu lt greater than or equal to 126 mg/dL suggests DIABETES MELLITUS per A.D.A. criteria. Neutrophils (Bld) [#/Vol] 3.0 10*3/uL 2.0-7.7 [facility] Neutrophils/100 WBC (Bld) 61.9 % 47-70 [facility] Potassium [Moles/Vol] 4.0 mmol/L 3.5-5.1 [facility] Sodium [Moles/Vol] 139 mmol/L 136-145 [facility] Triglyceride [Mass/Vol] 309 mg/dL <199 [facility] Comment on above: The drugs N-Acetylcy steine and Metamizole may falsely depress this assay.Serum Triglycerides Reference Interval Normal <150 mg/dL Borderline high 150 - 199 mg/dL High 200 - 499 mg/dL Very High > or = 500 mg/dL WBC (Bld) [#/Vol] 4.9 10*3/uL 4.4-11.0 [facility] Blood erythrocytes count (nu mber/volume)Ordered By: Dr. Gonzalez on 11-16-2022 RBC (Bld) [#/Vol] 4.19 10*6/uL 4.2-5.4 [facility] Blood hemoglobin measurement (mass/volume)Ordered By: Dr. Gonzalez on 11-16-2022 Hemoglobin (Bld) [Mass/Vol] 12.7 g/dL 12.0-15.0 [facility] Blood lymphocytes/100 leukoc ytesOrdered By: Dr. Gonzalez on 11-16-2022 Lymphocytes/100 WBC (Bld) 27.0 % 19-41 [facility] Blood monocytes/100 leukocyt esOrdered By: Dr. Gonzalez on 11-16-2022 Monocytes/100 WBC (Bld) 8.6 % 0-10 [facility] Blood platelet mean volumeOr dered By: Dr. Gonzalez on 11-16-2022 Platelet mean volume (Bld) [Entitic vol] 10.7 fL 6.2-12.0 [facility] Determination of erythrocyte mean corpuscular volume (MCV)Ordered By: Dr. Gonzalez on 11-16-2022 MCV (RBC) [Entitic vol] 93.3 fL 81-99 [facility] Hematocrit Auto (Bld) [Volum e fraction]Ordered By: Dr. Gonzalez on 11-16-2022 Hematocrit (Bld) [Volume fraction] 39.1 % 37-47 [facility] Laboratory - Chemistry and C hemistry - challengeOrdered By: Dr. Gonzalez on 11-16-2022 CO2 [Moles/Vol] 30.0 mmol/L 21.0-32.0 [facility] Urea nitrogen/Creatinine [Mass ratio] 18.1 mg/mg 10-20 [facility] Laboratory - Hematology and Cell countsOrdered By: Dr. Gonzalez on 11-16-2022 Erythrocyte distribution width (RBC) [Entitic vol] 42.2 fL 35.1-43.9 [facility] Erythrocyte distribution width (RBC) [Ratio] 12.3 % 11.6-14.6 [facility] Immature granulocytes/100 WBC (Bld) 0.200 % 0.0-0.9 [facility] Comment on above: IG% - Immature Granu locytes (promyelocytes, myelocytes and metamyelocytes) > 1% indicates that a LEFT SHIFT is Present. MCH (RBC) [Entitic mass] 30.3 pg 27.0-32.0 [facility] Nucleated RBC/100 WBC (Bld) [Ratio] 0 % 0-5 [facility] MCHC Auto (RBC) [Mass/Vol]Or dered By: Dr. Gonzalez on 11-16-2022 MCHC (RBC) [Mass/Vol] 32.5 g/dL 32-36 [facility] No Panel InformationOrdered By: Dr. Gonzalez on 11-16-2022 Estimated GFR (MDRD) Amer 64 mL/min >60 [facility] Comment on above: GFR Calc Estimated GFR (MDRD) Non-Af Amer 53 mL/min >60 [facility] Comment on above: Non- GFR Calc Vitamin D 25-Hydroxy 32.5 ng/mL [facility] Comment on above: Vitamin D 25(OH) Sta tus Range Deficiency <20 ng/mL (50nmol/L) Insufficiency 20 - 30 ng/mL (50 - 75 nmol/L) Sufficiency 30 - 100 ng/mL (75 - 250 nmol/L) Toxicity >100 ng/mL (>250 nmol/L) Platelets bldOrdered By: Dr. Gonzalez on 11-16-2022 Platelets (Bld) [#/Vol] 242 10*3/uL 150-450 [facility] Serum or plasma calcium pastor urement (mass/volume)Ordered By: Dr. Gonzalez on 11-16-2022 Calcium [Mass/Vol] 9.8 mg/dL 8.5-10.1 [facility] Serum or plasma cholesterol in HDL measurement (mass/volume)Ordered By: Dr. Gonzalez on 11-16-2022 Cholesterol in HDL [Mass/Vol] 42 mg/dL >40 [facility] Comment on above: The drugs N-Acetylcy steine and Metamizole may falsely depress this assay. Reference Range HDL <40 mg/dL Low HDL Cholesterol HDL >or= 60 mg/dL High HDL Cholesterol Serum or plasma cholesterol in VLDL measurement (mass/volume)Ordered By: Dr. Gonzalez on 11-16-2022 Cholesterol in VLDL [Mass/Vol] 62 mg/dL 5-40 [facility] Serum or plasma creatinine m easurement (mass/volume)Ordered By: Dr. Gonzalez on 11-16-2022 Creatinine [Mass/Vol] 1.05 mg/dL 0.55-1.02 [facility] Comment on above: The validity of the calculated GFR & GFRAA in patients over 70 years has not been determined. Clinical correlation is essential. Serum or plasma low density lipoprotein (LDL) cholesterol measurement (mass/volume)Ordered By: Dr. Gonzalez on 11-16-2022 Cholesterol in LDL [Mass/Vol] 153 mg/dL 0-130 [facility] Serum or plasma urea nitroge n measurement (mass/volume)Ordered By: Dr. Gonzalez on 11-16-2022 Urea nitrogen [Mass/Vol] 19 mg/dL 7-18 [facility] Thin prep Papanicolaou smear with manual screeningOrdered By: Dr. Gonzalez on 11-16-2022 Thin prep Papanicolaou smear with manual screening 6 5-15 [facility] CNOVon 08-18-2022 CNOV Office Visit (ORMDNA ) RADHA GLOVER ([id number]) 1940 F Date Time Provider Department 08/18/22 [...] which included preparing to see the patient, [id number] patient care, completing clinical documentation, obtaining and/or [...] High: eGFR< (more content not included)... Normal [facility] 07-17-2022 [facility] HNO ID: [id number] Author: RT Yao(Grady) Service: ? Author Type: Tabulating Clerk Type: Allied Health Filed: 07/17/2022 9:14 AM [...] RT Yao(R) July 17, 2022 9:13 [facility] ) GLOVERRADHA CAPPS ([id number]) 1940 F Date Time Provider Department 07/17/22 [...] satisfaction. This note was partially generated using [employer] voice recognition system and as such may [...] - Fully Assessed Reason for Visit: New [604707] Knee Pain [132] Primary Visit Diagnosis:Arthritis of [...] Encounter Status:Closed by SORIN COOLEY on 07/17/22 [facility] XR KNEE 4V AP/PA BOTH+LAT/ME R LTon [...] the medial femoral condyle and tibial plateau. 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 Eyeglass Lens Generator: RHYS Transcribe Date/Time: Jul 17 2022 3:14P Dictated by : CHOCO ZAVALA MD This examination was interpreted and the report reviewed and electronically signed by: CHOCO ZAVALA MD on Jul 17 2022 3:15PM EST [facility] * * *Final Report* * * DATE OF EXAM: Jul 17 2022 9:13AM [facility] 5202 - XR KNEE 4V AP/PA BOTH+LAT/LIZ [...] joint space. No soft tissue abnormality identified. [facility], [facility] * * *Final Report* * * DATE OF EXAM: Jul 17 2022 9:13AM [facility] 5202 - XR KNEE 4V AP/PA BOTH+LAT/LIZ [...] the medial femoral condyle and tibial plateau. Eyeglass Lens Generator: RHYS Transcribe Date/Time: Jul 17 2022 3:14P Dictated by : CHOCO ZAVALA MD This examination was interpreted and the report reviewed and electronically signed by: CHOCO ZAVALA MD on Jul 17 2022 3:15PM EST [facility] Radiology Study observation (narrative) [facility] XR Knee - left 4 ViewsOrdere d By: Ccf Provider on 07-17-2022 [facility] Basic Metabolic Panel $$$on 01-12-2018 Anion gap 15.4 mmol/L Normal [facility] Comment on above: Performed By: #### B MP ####[facility] [place] [address] BUN (urea nitrogen) 26 mg/dL High 7-18 [facility] Comment on above: Performed By: #### B MP ####[facility] [place] [address], [place] [address] Calcium 9.4 mg/dL Normal 8.5-10.1 [facility] Comment on above: Performed By: #### B MP ####[facility] [place] [address], [place] [address] Chloride 107 mmol/L Normal 98-107 [facility] Comment on above: Performed By: #### B MP ####[facility] [place] [address], [place] [address] CO2 25 mmol/L Normal 21-32 [facility] Comment on above: Performed By: #### B MP ####[facility] [place] [address], [place] [address] Creatinine 1.1 mg/dL Normal 0.6-1.3 [facility] Comment on above: Performed By: #### B MP ####[facility] [place] [address] eGFR (non-black) mL/min/{1.73_m2} Normal [facility] Comment on above: Result Comment: eGFR Units of measure: mL/min/1.73 m 2 Performed By: #### B MP ####[facility] [place] [address] Glucose mass conc 164 mg/dL High 74-106 [facility] Comment on above: Performed By: #### B MP ####[facility] [place] [address] Potassium molar conc 4.4 mmol/L Normal 3.5-5.1 [facility] Comment on above: Performed By: #### B MP ####[facility] [place] [address] Sodium 143 mmol/L Normal 136-145 [facility] Comment on above: Performed By: #### B MP ####[facility] [place] [address] CBC and Differentialon 12-23 Abs Baso <0.03 Normal <0.11 [facility] Comment on above: Performed By: #### C BCDIF, CMP, LIPB, TSH ####[facility] [address] [phone] Abs Costilla 0.35 k/uL Normal <0.87 [facility] Comment on above: Performed By: #### C BCDIF, CMP, LIPB, TSH ####[facility] Ull[address]CWar[place], [place] [phone] Abs Neut 3.03 k/uL Normal 1.45-7.50 [facility] Comment on above: Performed By: #### C BCDIF, CMP, LIPB, TSH ####[facility] Nof[address]CDeanna [address] [phone] Basophils/100 WBC Auto (Bld) 0.4 % Normal [facility] Comment on above: Performed By: #### C BCDIF, CMP, LIPB, TSH ####[facility] Onl[address]CDeanna [address] [phone] DTYPE ADIFF Normal [facility] Comment on above: Performed By: #### C BCDIF, CMP, LIPB, TSH ####[facility] Dyk[address] [phone] Eosinophils 0.14 10*3/uL Normal <0.46 [facility] Comment on above: Performed By: #### C BCDIF, CMP, LIPB, TSH ####[facility] [phone] Eosinophils/100 leukocytes 2.6 % Normal [facility] Comment on above: Performed By: #### C BCDIF, CMP, LIPB, TSH ####[place] [address] [phone] Erythrocyte distribution width Auto Ratio (RBC) 12.7 % Normal 11.5-15.0 [facility] Comment on above: Performed By: #### C BCDIF, CMP, LIPB, TSH ####[facility] Ywm[address]CDeanna [address] [phone] Erythrocytes (RBC) 0.0 /100 WBC Normal 0 [facility] Comment on above: Performed By: #### C BCDIF, CMP, LIPB, TSH ####[facility] [facility] [address]gn[address]CDe[address] [place] [phone] Erythrocytes (RBC) 4.50 10*6/uL Normal 3.90-5.20 [facility] Comment on above: Performed By: #### C BCDIF, CMP, LIPB, TSH ####[facility] Vbp[address]CD[address] [phone] Erythrocytes (RBC) 10*6/uL Normal <0.01 [facility] Comment on above: Performed By: #### C BCDIF, CMP, LIPB, TSH ####[facility] [address] [place] [phone] Hematocrit (HCT) 41.5 % Normal 36.0-46.0 [facility] Comment on above: Performed By: #### C BCDIF, CMP, LIPB, TSH ####[place] [phone] Hemoglobin mass conc (Bld) 13.7 g/dL Normal 11.5-15.5 [facility] Comment on above: Performed By: #### C BCDIF, CMP, LIPB, TSH ####[place] [phone] Lymphocytes 1.74 10*3/uL Normal 1.00-4.00 [facility] Comment on above: Performed By: #### C BCDIF, CMP, LIPB, TSH ####[place] [phone] Lymphocytes/100 leukocytes 32.8 % Normal [facility] Lab Comment on above: Performed By: #### C BCDIF, CMP, LIPB, TSH ####[place] [phone] MCH 30.4 pG Normal 26.0-34.0 [facility] Comment on above: Performed By: #### C BCDIF, CMP, LIPB, TSH ####[place] [phone] MCHC mass conc (RBC) 33.0 g/dL Normal 30.5-36.0 [facility] Comment on above: Performed By: #### C BCDIF, CMP, LIPB, TSH ####[place] [phone] MCV 92.2 fL Normal 80.0-100.0 [facility] Comment on above: Performed By: #### C BCDIF, CMP, LIPB, TSH ####[facility] Uqj[address]CWar[address], [place] [phone] Monocytes/100 leukocytes 6.6 % Normal [facility] Comment on above: Performed By: #### C BCDIF, CMP, LIPB, TSH ####[facility] S[address]CWar[address], [place] [phone] Neutrophils/100 WBC Auto (Bld) 57.6 % Normal [facility] Comment on above: Performed By: #### C BCDIF, CMP, LIPB, TSH ####[facility], [place] [phone] Platelet mean volume (PMV) 10.6 fL Normal 9.0-12.7 [facility] Comment on above: Performed By: #### C BCDIF, CMP, LIPB, TSH ####[place] [address], [place] [phone] Platelets 262 10*3/uL Normal 150-400 [facility] Comment on above: Performed By: #### C BCDIF, CMP, LIPB, TSH ####[facility] [address]CWar[place], [place] [phone] WBC (Leukocytes) 5.30 10*3/uL Normal 3.70-11.00 [facility] Comment on above: Performed By: #### C BCDIF, CMP, LIPB, TSH ####[facility] Xsr[address]CWar[address], [place] [phone] Comp Metabolic Panelon 12-23 Alanine aminotransferase (ALT) 21 U/L Normal 7-38 [facility] Comment on above: Performed By: #### C BCDIF, CMP, LIPB, TSH ####[facility] [address]ph[address]CWar[address], [place] [phone] Albumin 4.1 g/dL Normal 3.9-4.9 [facility] Comment on above: Performed By: #### C BCDIF, CMP, LIPB, TSH ####[facility] [address] [place], [place] [phone] Alkaline phosphatase (ALP) 95 U/L Normal 32-117 [facility] Comment on above: Performed By: #### C BCDIF, CMP, LIPB, TSH ####[place] [phone] Anion gap 13 mmol/L Normal 9-18 [facility] Comment on above: Performed By: #### C BCDIF, CMP, LIPB, TSH ####[place] [phone] Aspartate aminotransferase (AST) 22 U/L Normal 13-35 [facility] Comment on above: Performed By: #### C BCDIF, CMP, LIPB, TSH ####[place] [phone] Bilirubin Ql (U) 0.2 mg/dL Normal 0.2-1.3 [facility] Comment on above: Performed By: #### C BCDIF, CMP, LIPB, TSH ####[place] [phone] Calcium 9.3 mg/dL Normal 8.5-10.2 [facility] Comment on above: Performed By: #### C BCDIF, CMP, LIPB, TSH ####[place] [phone] Chloride 104 mmol/L Normal 97-105 [facility] Comment on above: Performed By: #### C BCDIF, CMP, LIPB, TSH ####[place] [phone] CO2 26 mmol/L Normal 22-30 [facility] Comment on above: Performed By: #### C BCDIF, CMP, LIPB, TSH ####[facility] [address] [phone] Creatinine 0.99 mg/dL High 0.58-0.96 [facility] Comment on above: Performed By: #### C BCDIF, CMP, LIPB, TSH ####[facility] [address] [place] [address] [phone] eGFR (non-black) 54 . Normal [facility] Comment on above: Performed By: #### C BCDIF, CMP, LIPB, TSH ####[place] [phone] eGFR (non-black) mL/min/{1.73_m2} Normal [facility] Lab Comment on above: Performed By: #### C BCDIF, CMP, LIPB, TSH ####[place] [phone] Glucose mass conc 107 mg/dL High 74-99 [facility] Lab Comment on above: Performed By: #### C BCDIF, CMP, LIPB, TSH ####[place] [phone] Potassium molar conc 4.7 mmol/L Normal 3.7-5.1 [facility] Comment on above: Performed By: #### C BCDIF, CMP, LIPB, TSH ####[address]ille [phone] Protein 7.2 g/dL Normal 6.3-8.0 [facility] Comment on above: Performed By: #### C BCDIF, CMP, LIPB, TSH ####[place] [phone] Sodium 143 mmol/L Normal 136-144 [facility] Comment on above: Performed By: #### C BCDIF, CMP, LIPB, TSH ####[place] [phone] Urea nitrogen 17 mg/dL Normal 7-21 [facility] Comment on above: Performed By: #### C BCDIF, CMP, LIPB, TSH ####[place] [phone] Lipid Panel, Basicon 12-23- 018 Cholesterol 271 mg/dL High <200 [facility] Comment on above: Performed By: #### C BCDIF, CMP, LIPB, TSH ####[phone] Cholesterol in VLDL mass conc 40 mg/dL High <30 [facility] Comment on above: Performed By: #### C BCDIF, CMP, LIPB, TSH ####[phone] HDL Cholesterol 49 mg/dL Normal >39 [facility] Comment on above: Performed By: #### C BCDIF, CMP, LIPB, TSH ####[place] [phone] LDL Cholesterol 182 mg/dL High <100 [facility] Comment on above: Performed By: #### C BCDIF, CMP, LIPB, TSH ####[place] [phone] LDL:HDL Ratio 3.71 High <2.54 [facility] Comment on above: Performed By: #### C BCDIF, CMP, LIPB, TSH ####[place] [phone] Non HDL Cholesterol 222 mg/dL High <130 [facility] Lab Comment on above: Performed By: #### C BCDIF, CMP, LIPB, TSH ####[place] [phone] TC:HDL Ratio 5.53 High <5.10 [facility] Lab Comment on above: Performed By: #### C BCDIF, CMP, LIPB, TSH ####[place] [phone] Triglyceride 202 mg/dL High <150 [facility] Lab Comment on above: Performed By: #### C BCDIF, CMP, LIPB, TSH ####[place] [phone] Fasting Time 12 hrs Normal [facility] Comment on above: Performed By: #### C BCDIF, CMP, LIPB, TSH ####[place] [phone] TSHon 12-23-2017 Thyroid stimulating hormone (TSH) 4.810 uU/mL Normal 0.400-5.500 [facility] Comment on above: Performed By: #### C BCDIF, CMP, LIPB, TSH ####[place] [phone] AUTO DIFFon 08-27-2017 Basophils Auto #/vol (Bld) 0.02 x1000 Normal 0.00-0.20 [facility] Comment on above: Performed By: #### 1 96969, 4775122, 340240, 4599700 ####[facility] [address] [place] [address] Medical Director: Gagandeep Ervin MD Basos % 0.3 % Normal [facility] Comment on above: Performed By: #### 1 90133, 1971451, 366417, 2651814 ####[facility] [address]jqg96259 [place] [address] Medical Director: Gagandeep Ervin MD Eos Count 0.13 x1000 Normal 0.00-0.50 [facility] Comment on above: Performed By: #### 1 94289, 0690934, 404774, 8750839 ####[facility] Ptqcwgba22739 [place] [address] Medical Director: Gagandeep Ervin MD Eosinophils/100 leukocytes 2.4 % Normal [facility] Comment on above: Performed By: #### 1 61181, 6154848, 440345, 7193547 ####[facility] Nkkhabzj23875 [place] [address] Medical Director: Gagandeep Ervin MD Lymphocytes 1.45 x1000 Normal 1.20-4.80 [facility] Comment on above: Performed By: #### 1 48607, 5905481, 421131, 3435677 ####[facility] Jmjsawbq49129 [place] [address] Medical Director: Gagandeep Ervin MD Lymphocytes/100 leukocytes 25.6 % Normal [facility] Comment on above: Performed By: #### 1 30205, 4906103, 337651, 9927051 ####[facility] Exihdvuy69854 [place] [address] Medical Director: Gagandeep Ervin MD Costilla Count 0.38 x1000 Normal 0.10-1.00 [facility] Comment on above: Performed By: #### 1 41185, 1588845, 154782, 8716334 ####[facility] Fzyedjkr49592 [place] [address] Medical Director: Gagandeep Ervin MD Monocytes/100 leukocytes 6.7 % Normal [facility] Comment on above: Performed By: #### 1 80404, 2519058, 997034, 5671557 ####[facility] Hoqgmnmm57644 [place] [address] Medical Director: Gagandeep Ervin MD Neutrophils 3.69 x1000 Normal 1.40-8.80 [facility] Comment on above: Performed By: #### 1 34388, 1996290, 551576, 6788722 ####[facility] Uyvxgmcn63534 [place] [address] Medical Director: Gagandeep Ervin MD Neutrophils/100 WBC Auto (Bld) 65.1 % Normal [facility] Comment on above: Performed By: #### 1 43082, 6447288, 028834, 2114127 ####[facility] Lyueocck57605 [place] [address] Medical Director: Gagandeep Ervin MD COMPMETAon 08-27-2017 Globulin 3.6 g/dL Normal [facility] Comment on above: Performed By: #### 1 44489, 8054255, 735957, 5897784 ####[facility] Zsbumiol82495 [place] [address] Medical Director: Gagandeep Ervin MD Osmolality 280 mOsm/kg Normal 275-295 [facility] Comment on above: Performed By: #### 1 65331, 9153328, 862697, 0881569 ####[facility] Pyhwqfum33816 [place] [address] Medical Director: Gagandeep Ervin MD eGFR (non-black) mL/min/{1.73_m2} Normal So [facility] Comment on above: Result Comment: Afri can Rw[place]an GFR Calc Performed By: #### 1 29289, 9692357, 993459, 1004267 ####[facility] Onxnmjmk27246 [place] [address] Medical Director: Gagandeep Ervin MD eGFR (non-black) 58 mL/min/1.73m? Normal So [facility] Comment on above: Result Comment: Non GFR CalcMedical judgement is necessary to interpret GFR. The calculated GFR may not accurately reflect renal status in patients >70 years, women, acutely ill hospitalized patients and patients with acute renal failure or known renal disease.Note:Creatinine clearance (not GFR) should be used for drug dosing. Performed By: #### 1 33887, 9023908, 808751, 3265883 ####[facility] Vlxrqrsp66732 [place] [address] Medical Director: Gagandeep Ervin MD BUN/Creatinine Ratio 20.2 mg/mg Normal [facility] Comment on above: Performed By: #### 1 93167, 5335746, 540737, 1783856 ####[facility] Anhwrwzu24262 [place] [address] Medical Director: Gagandeep Ervin MD Albumin/Globulin Ratio 0.9 {ratio} Normal [facility] Comment on above: Performed By: #### 1 13484, 1175287, 792528, 5753918 ####[facility] Gqooepug79573 [place] [address] Medical Director: Gagandeep Ervin MD Alk Phos 101 unit/L Normal 45-117 [facility] Comment on above: Performed By: #### 1 34196, 2331146, 545739, 2072822 ####[facility] Iskoxifr66479 [place] [address] Medical Director: Gagandeep Ervin MD Protein 7.0 g/dL Normal 6.0-8.5 [facility] Comment on above: Performed By: #### 1 66043, 6939378, 218245, 1536191 ####[facility] Yfvqgkma28969 [place] [address] Medical Director: Gagandeep Ervin MD Bilirubin (total) 0.36 mg/dL Normal 0.20-1.00 [facility] Comment on above: Performed By: #### 1 96852, 3287659, 099157, 3696050 ####[facility] Afwydemx91545 [place] [address] Medical Director: Gagandeep Ervin MD GPT 26 unit/L Normal 13-56 [facility] Comment on above: Result Comment: Marina puncture should occur prior to sulfasalazine and/or sulfapyridine administration due to the potential for falsely depressed results.Baseline assay values before administration of sulfasalazine and sulfapyridine therapy would not be affected. Performed By: #### 1 81349, 5876446, 754321, 1521307 ####[facility] Nxjluboc82107 [place] [address] Medical Director: Gagandeep Ervin MD Creatinine 0.9 mg/dL Normal 0.6-1.0 [facility] Comment on above: Performed By: #### 1 14555, 4977197, 780387, 8680862 ####[facility] [address] [address] Medical Director: Gagandeep Ervin MD GOT 17 unit/L Normal 15-37 [facility] Comment on above: Result Comment: Marina puncture should occur prior to sulfasalazine and/or sulfapyridine administration due to the potential for falsely depressed results.Baseline assay values before administration of sulfasalazine and sulfapyridine therapy would not be affected. Performed By: #### 1 93864, 5506354, 114839, 9137340 ####[facility] Caemgogz36275 [place] [address] Medical Director: Gagandeep Ervin MD Glucose mass conc 107 mg/dL High 72-100 [facility] Comment on above: Result Comment: Marina puncture should occur prior to sulfasalazine administration due to the potential for falsely depressed results. Venipuncture should occur prior to sulfapyridine administration due to the potential falsely elevated results.Baseline assay values before administration of sulfasalazine and sulfapyridine therapy would not be affected. Performed By: #### 1 20033, 6241681, 066609, 6226981 ####[facility] Qhwpiudy59440 [place] [address] Medical Director: Gagandeep Ervin MD Urea nitrogen 19 mg/dL Normal 10-20 [facility] Comment on above: Performed By: #### 1 14401, 0911012, 649230, 9052022 ####[facility] Cjrfwjdg74397 [place] [address] Medical Director: Gagandeep Ervin MD Albumin 3.4 g/dL Normal 3.4-5.0 [facility] Comment on above: Performed By: #### 1 08350, 9596890, 553916, 4973181 ####[facility] Jzixlfdg96966 [place] [address] Medical Director: Gagandeep Ervin MD CO2 30.1 mmol/L Normal 21.0-32.0 [facility] Comment on above: Performed By: #### 1 21416, 3893528, 692702, 5258479 ####[facility] Bbxucnpo75641 [place] [address] Medical Director: Gagandeep Ervin MD Calcium 9.0 mg/dL Normal 8.5-10.5 [facility] Comment on above: Performed By: #### 1 47063, 1775833, 207025, 9803057 ####[facility] Amxcjkxo29131 [place] [address] Medical Director: Gagandeep Ervin MD Sodium 139 mmol/L Normal 135-145 [facility] Comment on above: Performed By: #### 1 52308, 6692483, 047797, 7114072 ####[facility] Qocvgami22090 [place] [address] Medical Director: Gagandeep Ervin MD Potassium molar conc 4.4 mmol/L Normal 3.5-5.1 [facility] Comment on above: Performed By: #### 1 07970, 7931547, 411266, 6688235 ####[facility] Taawiish01550 [place] [address] Medical Director: Gagandeep Ervin MD Chloride 107 mmol/L Normal 100-109 [facility] Comment on above: Performed By: #### 1 00720, 7555326, 914595, 9813839 ####[facility] Dsfqaqcn25151 [place], [place] 82778440) [phone] Director: Gagandeep Ervin MD HEMOon 08-27-2017 DIFF? No Normal [facility] Comment on above: Performed By: #### 1 27620, 8206722, 147924, 1298516 ####[facility] Mvqjupiv74079 [place], [place] 72361440) [phone] Director: Gagandeep Ervin MD Erythrocyte distribution width Auto Ratio (RBC) 13.2 % Normal 11.5-14.5 [facility] Comment on above: Performed By: #### 1 76072, 6154525, 665508, 7067793 ####[facility] Mjssodvk66102 [place], [place] 83269440) [phone] Director: Gagandeep Ervin MD Erythrocytes (RBC) 4.18 x10 Low 4.20-5.40 [facility] Comment on above: Result Comment: Note : RBC morphology is normal unless otherwise stated. Evaluation performed only if differential is requested. Performed By: #### 1 83979, 2256631, 796440, 1929580 ####[facility] Nthgltwf35763 [place], [place] 01183440) [phone] Director: Gagandeep Ervin MD Hematocrit (HCT) 37.7 % Normal 36.0-46.0 [facility] Comment on above: Performed By: #### 1 30210, 3308669, 637765, 4494583 ####[facility] Wlfidtxs77129 [place] [address] Medical Director: Gagandeep Ervin MD Hemoglobin mass conc (Bld) 12.6 g/dL Normal 12.0-16.0 [facility] Comment on above: Performed By: #### 1 79195, 3108331, 238750, 3841404 ####[facility] Ccpehwar17346 [place] [address] Medical Director: Gagandeep Ervin MD MCH 30.1 pg Normal 27.0-34.0 [facility] Comment on above: Performed By: #### 1 85810, 2309778, 864573, 0015558 ####[facility] Ifysbfua26564 [place] [address] Medical Director: Gagandeep Ervin MD MCHC mass conc (RBC) 33.3 g/dL Normal 32.0-37.0 [facility] Comment on above: Performed By: #### 1 40327, 1916894, 188986, 7100032 ####[facility] Heoztqbn59242 [place] [address] Medical Director: Gagandeep Ervin MD MCV 90.3 fL Normal 80.0-100.0 [facility] Comment on above: Performed By: #### 1 63047, 8436440, 988344, 7244581 ####[facility] Xobaegrc25624 [place] [address] Medical Director: Gagandeep Ervin MD Nucleated RBC% 0 /100WC Normal [facility] Comment on above: Performed By: #### 1 09566, 5836890, 726462, 0661271 ####[facility] Psclbswl41684 [place] [address] Medical Director: Gagandeep Ervin MD Platelet mean volume (PMV) 8.8 fL Normal 7.4-10.4 [facility] Comment on above: Performed By: #### 1 62883, 9774888, 427728, 6324947 ####[facility] Ohjiqscf97555 [place] [address] Medical Director: Gagandeep Ervin MD Platelets 214 x1000 Normal 150-450 [facility] Comment on above: Performed By: #### 1 52789, 5558291, 727925, 3410177 ####[facility] Udokdcyg49107 [place] [address] Medical Director: Gagandeep Ervin MD WBC (Leukocytes) 5.7 10*3/uL Normal [facility] Comment on above: Performed By: #### 1 12937, 8375516, 987741, 6445624 ####[facility] Jglhpvzz48352 [place] [address] Medical Director: Gagandeep Ervin MD WBC (Leukocytes) 5.7 x10 Normal 4.5-11.0 [facility] Comment on above: Performed By: #### 1 90239, 4838849, 011003, 3869688 ####[facility] Jisxzqvg66612 [place] [address] Medical Director: Gagandeep Ervin MD LIPID PNLon 08-27-2017 Calculated LDL Cholesterol 188 mg/dL High 60-130 [facility] Comment on above: Result Comment: <100 mg/dl Mlqbidy315-306 mg/dl Near Sadfgra931-559 mg/dl Borderline Gykt513-623 mg/dl High>=190 mg/dl Very High Performed By: #### 1 46339, 4993062, 941059, 1369895 ####[facility] Kgntvlyx04397 [place], [place] [address]40) [phone] Director: Gagandeep Ervin MD Cholesterol to HDL Ratio 5.6 {ratio} Normal [facility] Comment on above: Performed By: #### 1 05336, 6092428, 790047, 7583446 ####[facility] Oeadmoyi32921 [place], [place] [address]40) [phone] Director: Gagandeep Ervin MD Cholesterol 272 mg/dL High 100-200 [facility] Comment on above: Result Comment: <200 mg/dl Nbrylquoj444-284 mg/dl Borderline High>= 240 mg/dl High Performed By: #### 1 46990, 7192190, 303171, 0599719 ####[facility] Nmuxweig03580 [place] [address] Medical Director: Gagandeep Ervin MD HDL Cholesterol 49 mg/dL Normal 40-60 [facility] Comment on above: Performed By: #### 1 89277, 0383130, 816452, 5502713 ####[facility] Xqvfkerd90627 [place] [address] Medical Director: Gagandeep Ervin MD Triglyceride 176 mg/dL High 30-150 [facility] Comment on above: Performed By: #### 1 55196, 1205220, 766147, 9670517 ####[facility] Ezhsvvwg33564 [place] [address] Medical Director: Gagandeep Ervin MD TSHon 08-27-2017 Thyroid stimulating hormone (TSH) 2.88 uIU/ml Normal 0.36-3.74 [facility] Comment on above: Result Comment: High levels of serum biotin may interfere with this test. Performed By: #### 1 83974 ####[facility] Gpampueg83931 [place] [address] Medical Director: Gagandeep Ervin MD ANES La 03-17-2017 ANES POST HNO ID: [id number] thor: Akbar Rojaservice: AnesthesiologyAuthor Type: AnesthesiologistType: Anesthesia PostOpFiled: 03/17/2017 12:09 PMNote Text:POST ANESTHESIA EVALUATION NOTESERVICE DATE: 03/17/2017SERVICE TIME: 12:09 PMDOB: 1940Vitals: Temp: 36.3 ?C (97.3 ?F) 03/17/1711BP: 171/76 166/74 160/59 129/61 03/17/1711Pulse: 75 73 66 78 03/17/1711Resp: 16 18 16 16 140 03/17/1711SpO2: 92% 97% 100% 100%Validated Vital Signs: YesNo [...] Radha GloverDATE: March 17, 2017 PAGER/CONTACT #: [phone] pager [facility] ANE PREOPon 03-17-2017 ANES PREOP HNO ID: [id number] thor: Akbar Rojaservice: AnesthesiologyAuthor Type: AnesthesiologistType: Anesthesia PreOpFiled: 03/17/2017 8:03 AMNote Text:REGIONAL ANESTHESIOLOGY DAY OF SURGERY NOTEPATIENT NAME: Radha GloverMRN: [id number]: 1940Procedure(s) (LRB):THIGHPLASTY (Bilateral)Surgeon(s):Kyle SalcedoEstimated body mass index is 28.49 kg/(m2) as [...] repairNo date: TOTAL ABDOM HYSTERECTOMY Comment: Hysterectomy, TA: TOTAL HIP REPLACEMENT Right Comment: Hip replacement, [id number]: TOTAL KNEE REPLACEMENT Right Comment: Knee replacement, [...] file prior to encounter.Inpatient medications reviewed in [facility].I have interviewed and examined the patient. I have reviewed the medicalrecord and/or the pre-anesthesia evaluation, pertinent labs, and testresults.Significant changes in the patient's condition since the History andPhysical, not otherwise documented in primary service progress notes: NoThis contains updated information obtained within 48 hours ofSurgery/Procedure.SIGNATU RE: Akbar Macias MD PATIENT NAME: Radha BergmanTE: March 17, 2017 : 8:02 AM PAGER/CONTACT #: [phone] (pager) [facility] BRIEF OP NOTon 03-17-2017 BRIEF OP NOT HNO ID: [id number] thor: German Lopez: Plastic SurgeryAuthor Type: PhysicianType: Brief Op NoteFiled: 03/17/2017 10:24 AMNote Text:BRIEF OPERATIVE NOTELOG ID: [id number] Date: 03/17/2017Surgeon(s) and Lotus Notes Administrator(s):Surgeon(s) and Role: * German Salcedo - PrimaryPreop Diagnosis: Z41.1 CosmeticPostop Diagnosis: sameProcedure(s):Procedure( s) (LRB):THIGHPLASTY (Bilateral)Anesthesia: GeneralFindings: noneEstimated Blood Loss: 10 mlsSpecimens: noneSIGNATURE: German Salcedo MD PATIENT NAME: Radha GloverDATE: March 17, 2017 : 10:24 AM PAGER/CONTACT #: [facility] OPERATIVE NOon 03-17-2017 OPERATIVE NO HNO ID: [id number] thor: German Lopez: Plastic SurgeryAuthor Type: PhysicianType: Operative ReportFiled: 03/22/2017 7:41 AMNote Text:[facility] RADHA JACOBSONDOB: 1940 AGE: 76 SEX: FMRN: [id number] ACCTNUM: [id number] SVC: LOCATION:ATTENDING PHYSICIAN: German Salcedo M.D.DATE OF PROCEDURE: 03/17/2017PREOPERATIVE DIAGNOSIS: Bilateral medial thigh lipodystrophy.POSTOPERATIVE DIAGNOSIS: Same.NAME OF OPERATION: Revision bilateral medial thigh lift.SURGEON: German Salcedo M.D.BARKING MACHINE FEEDER: ALEXANDRA Lindquist-CANESTHESIA: General endotracheal anesthesia.HISTORY OF PRESENT [...] antibiotic irrigation. Hemostasis wasobtained with electrocautery. Then, 10-Georgian drains were placed intothe wound secured with [...] at the endof the case.German Salcedo M.D.Plastic SurgeryJR:[id number]: 03/18/2017 08:54:51T: 03/18/2017 13:40:34Job #: [id number] [facility] PROGRESSon 03-17-2017 PROGRESS HNO ID: [id number] thor: Juana (Rn) STARR Dueñaservice: NursingAuthor Type: Registered NurseType: Progress NotesFiled: 03/17/2017 1:22 PMNote Text:Patient to PACU at this time. Hypertensive, so Dr Macias notified. Noorders received, will continue to monitor.1300: Drain instructions given to patient and friend with handouts anddrain log. [facility] NURSING PROGon 03-15-2017 NURSING PROG HNO ID: [id number] Author: Kendal (Rn) COSTA King Service: Neurosurgery Author Type: Registered Nurse Type: Nursing Progress Note Filed: 03/15/2017 8:11 AM Note Text: 03-12-17 PACC completed. No new labs ordered. Radha King RN [facility] Vital Signs Date Time Vital Sign Value Performing Clinician Facility 04-09-2023 19:29-0400 Diastolic blood pressure 65 mm[Hg] [facility] 04-09-2023 19:29-0400 Heart rate 69 /min [facility] 04-09-2023 19:29-0400 Respiratory rate 17 /min [facility] 04-09-2023 19:29-0400 SaO2% (BldA) [Mass fraction] 98 % [facility] 04-09-2023 19:29-0400 Systolic blood pressure 171 mm[Hg] [facility] 04-09-2023 17:28-0400 Body temperature 97.5 [degF] [facility] 04-09-2023 16:58-0400 Body height 162.56 cm [facility] 04-09-2023 16:58-0400 Body mass index (BMI) [Ratio] 28.7 kg/m2 [facility] 04-09-2023 16:58-0400 Body weight 75.84 kg [facility] 01-20-2023 14:11-0400 Body temperature 97.81 [degF] Shannan Vikas [employer] Work Phone: [facility] 01-20-2023 14:11-0400 Diastolic blood pressure 70 mm[Hg] Shannan Vikas [employer] Work Phone: [facility] 01-20-2023 14:11-0400 Heart rate 75 /min Shannan Vikas [employer] Work Phone: [facility] 01-20-2023 14:11-0400 Respiratory rate 18 /min Shannan Vikas [employer] Work Phone: [facility] 01-20-2023 14:11-0400 SaO2% (BldA) [Mass fraction] 97 % Shannan Vikas [employer] Work Phone: [facility] 01-20-2023 14:11-0400 Systolic blood pressure 120 mm[Hg] Shannan Vikas [employer] Work Phone: [facility] 01-15-2023 09:00-0400 Body temperature 97.2 [degF] Kaelyn Blake PT Work Phone: [facility] 01-15-2023 09:00-0400 Diastolic blood pressure 74 mm[Hg] Kaelyn Blake PT Work Phone: [facility] 01-15-2023 09:00-0400 Heart rate 83 /min Kaelyn Blake PT Work Phone: [facility] 01-15-2023 09:00-0400 Respiratory rate 18 /min Kaelyn Blake PT Work Phone: [facility] 01-15-2023 09:00-0400 SaO2% (BldA) [Mass fraction] 99 % Kaelyn Blake PT Work Phone: [facility] 01-15-2023 09:00-0400 Systolic blood pressure 164 mm[Hg] Kaelyn Blake PT Work Phone: [facility] 01-07-2023 10:15-0400 Body temperature 97.59 [degF] Shannan Vikas [employer] Work Phone: [facility] 01-07-2023 10:15-0400 Diastolic blood pressure 60 mm[Hg] Shannan Vikas [employer] Work Phone: [facility] 01-07-2023 10:15-0400 Heart rate 71 /min Shannan Vikas [employer] Work Phone: [facility] 01-07-2023 10:15-0400 Respiratory rate 18 /min Shannan Vikas [employer] Work Phone: [facility] 01-07-2023 10:15-0400 SaO2% (BldA) [Mass fraction] 97 % Shannan Vikas [employer] Work Phone: [facility] 01-07-2023 10:15-0400 Systolic blood pressure 114 mm[Hg] Shannan Vikas [employer] Work Phone: [facility] 01-01-2023 10:01-0400 Body temperature 98.1 [degF] Kaelyn Blake PT Work Phone: [facility] 01-01-2023 10:01-0400 Diastolic blood pressure 68 mm[Hg] Kaelyn Blake PT Work Phone: [facility] 01-01-2023 10:01-0400 Heart rate 77 /min Kaelyn Blake PT Work Phone: [facility] 01-01-2023 10:01-0400 Respiratory rate 16 /min Kaelyn Blake PT Work Phone: [facility] 04-21-2023 10:01-0400 SaO2% (BldA) [Mass fraction] 99 % Kaelyn Blake PT Work Phone: [facility] 01-01-2023 10:01-0400 Systolic blood pressure 150 mm[Hg] Kaelyn Blake PT Work Phone: [facility] 12-30-2022 12:04-0400 Diastolic blood pressure 76 mm[Hg] Becky Lai PT Work Phone: [facility] 12-30-2022 12:04-0400 Heart rate 74 /min Becky Lai PT Work Phone: [facility] 12-30-2022 12:04-0400 Respiratory rate 20 /min Becky Lai PT Work Phone: [facility] 12-30-2022 12:04-0400 SaO2% (BldA) [Mass fraction] 94 % Becky Lai PT Work Phone: [facility] 12-30-2022 12:04-0400 Systolic blood pressure 140 mm[Hg] Becky Lai PT Work Phone: [facility] 12-30-2022 11:42-0400 Body temperature 97.81 [degF] Becky Lai PT Work Phone: [facility] 12-11-2022 14:59-0400 Body height 160 cm Pacc 1 Work Phone: [facility] 12-11-2022 14:59-0400 Body temperature 97.59 [degF] Pacc 1 Work Phone: [facility] 12-11-2022 14:59-0400 Body weight 77.11 kg Pacc 1 Work Phone: [facility] 12-11-2022 14:59-0400 Diastolic blood pressure 60 mm[Hg] Pacc 1 Work Phone: [facility] 12-11-2022 14:59-0400 Heart rate 76 /min Pacc 1 Work Phone: [facility] 12-11-2022 14:59-0400 Respiratory rate 14 /min Pacc 1 Work Phone: [facility] 12-11-2022 14:59-0400 SaO2% (BldA) [Mass fraction] 95 % Pacc 1 Work Phone: [facility] 12-11-2022 14:59-0400 Systolic blood pressure 118 mm[Hg] Pacc 1 Work Phone: [facility] 12-02-2022 10:50-0400 Body height 162.56 cm [facility] 07-17-2022 08:51-0400 Body height 162.6 cm Sorin Cooley MD Work Phone: [facility] 07-17-2022 08:51-0400 Body weight 75.3 kg Sorin Cooley MD Work Phone: [facility] Encounters Encounter Date Encounter Type Care Provider Facility Start: 02-22-2025 End: 02-22-[address] Geo Gonzalez MD Work Phone: [facility] Work Phone: Start: 02-22-2025 End: 02-22-[address] Geo Gonzalez MD -[facility] Start: 02-22-2025 End: 02-22-2025 ambulatory Geo Gonzalez Facility:[facility] Start: 02-01-2025 End: 02-01-[address] Geo Gonzalez MD Work Phone: [facility] Work Phone: Start: 02-01-2025 End: 02-01-[address] Geo Gonzalez MD -[facility] Start: 02-01-2025 End: 02-01-2025 ambulatory Geo Gonzalez Facility:[facility] Start: 12-01-2024 End: 12-01-[address] Geo Gnozalez MD Work Phone: [facility] Work Phone: Start: 12-01-2024 End: 12-01-[address] [facility] Start: 12-01-2024 End: 12-01-2024 ambulatory Geo Gonzalez Facility:[facility] Start: 10-16-2024 End: 10-16-[address] [facility] Start: 10-16-2024 End: 10-16-2024 ambulatory Geo Gonzalez Facility:[facility] Start: 03-06-2024 End: 03-06-2024 ambulatory Geo Gonzalez Facility:[facility] Start: 12-04-2023 End: 12-04-2023 ambulatory [facility] Work Phone: Start: 12-04-2023 End: 12-04-2023 Patient encounter procedure [facility]-Laboratory Work Phone: Start: 09-09-2023 End: 09-09-2023 ambulatory [facility] Work Phone: Start: 09-09-2023 End: 09-09-2023 Patient encounter procedure [facility] Work Phone: Start: 06-29-2023 End: 06-29-2023 Patient encounter procedure [facility] Start: 04-27-2023 End: 04-27-2023 ambulatory GEO GONZALEZ Facility:[facility] Start: 04-09-2023 End: 04-09-2023 Emergency department patient visit [facility]-Emergency Department Work Phone: Start: 04-09-2023 End: 04-09-2023 ambulatory [facility] Work Phone: Start: 04-09-2023 End: 04-09-2023 Discharged Recurring [facility]-Physical Therapy Work Phone: Start: 04-09-2023 Registered Recurring [facility]-Physical Therapy Work Phone: Start: 03-30-2023 End: 03-30-2023 ambulatory GEO GONZALEZ Facility:[facility] Start: 03-30-2023 End: 03-30-2023 Patient encounter procedure Dheeraj Grater [employer]ATING S[employer]ET[employer] OFFICER[employer] Work Phone: Orthopaedics Comment on above: Status post left kne e replacement (Primary Dx); Arthrofibrosis of knee joint, left Start: 03-22-2023 End: 03-22-2023 ambulatory [facility] Facility:[facility] Start: 03-19-2023 Orders Only Dheeraj Grater BOATING SAFETY OFFICER.[employer] Work Phone: Orthopaedics Comment on above: Arthrofibrosis of kn ee joint, left (Primary Dx) Start: 03-18-2023 End: 03-18-2023 ambulatory DHEERAJ SMITHR Facility:[facility] Start: 03-18-2023 End: 03-18-2023 Patient encounter procedure Dheeraj Grater BOATING SAFETY OFFICER.[employer] Work Phone: Orthopaedics Comment on above: Arthrofibrosis of kn ee joint, left (Primary Dx); Status post left knee replacement Start: 02-26-2023 End: 02-26-2023 ambulatory [facility] Work Phone: Start: 02-26-2023 End: 02-26-2023 Patient encounter procedure [facility] Start: 02-18-2023 End: 02-18-2023 ambulatory [facility] Facility:[facility] Start: 01-20-2023 End: 01-20-2023 Home visit Shannan Bean [employer] Work Phone: [facility] Comment on above: [employer] ROUTINE Start: 01-15-2023 End: 01-15-2023 Home visit Kaelyn Blake PT Work Phone: [facility] Comment on above: PT REASSESSMENT Start: 01-14-2023 End: 01-14-2023 ambulatory DHEERAJ SARAHR Facility:[facility] Start: 01-14-2023 End: 01-14-2023 Patient encounter procedure Dheeraj Grater [employer]ATING SAFETY OFFICER.[employer] Work Phone: Orthopaedics Comment on above: Status post left kne e replacement (Primary Dx) Start: 01-14-2023 End: 01-14-2023 Subsequent hospital visit by physician Radio General Catherine Bonner Work Phone: Radiology Comment on above: Chronic pain of left knee [M25.562, G89.29] Start: 01-12-2023 Telephone encounter Kaelyn Blake PT Work Phone: [facility] Comment on above: Home Care (Out patie nt PT ) Start: 01-07-2023 End: 01-07-2023 Home visit Shannan Bean [employer] Work Phone: [facility] Comment on above: [employer] ROUTINE Start: 01-05-2023 Telephone encounter Kaelyn Blake PT Work Phone: [facility] Comment on above: Home Care (Dressing removal ) Start: 01-01-2023 End: 01-01-2023 Home visit Kaelyn Blake PT Work Phone: [facility] Comment on above: PT ROUTINE Start: 12-30-2022 End: 12-30-2022 Orders Only Dheeraj Landa [employer]ATING SAFETY OFFICER.[employer] Work Phone: Orthopaedics Comment on above: Chronic pain of left knee (Primary Dx) PT SOC Start: 12-28-2022 End: 12-29-2022 ambulatory GONZÁLEZ YOUNGER Facility:[facility] Start: 12-22-2022 End: 12-22-2022 ambulatory GEO GONZALEZ Facility:[facility] Start: 12-22-2022 Encounter for other preprocedural examination GEO GONZALEZ [facility] Start: 12-11-2022 End: 12-11-2022 Admission to establishment [facility] 1 Work Phone: [facility] Start: 12-11-2022 End: 12-12-2022 ambulatory [facility] 1 Work Phone: Pre Anesthesia Comment on above: Pre-operative examin ation (Primary Dx); Murmur; Essential hypertension, benign; Hypercholesteremia; Gastroesophageal reflux disease, unspecified whether esophagitis present; History of right knee joint replacement; History of right hip replacement; Class 1 obesity due to excess calories with serious comorbidity and body mass index (BMI) of 30.0 to 30.9 in adult Start: 12-11-2022 End: 12-11-2022 Preprocedural examination done [place] [id number] Work Phone: Pre Anesthesia Start: 12-08-2022 Orders Only Brennan Eddy Work Phone: Orthopaedics Comment on above: Primary osteoarthrit is of left knee (Primary Dx) Pre-Op Teaching Start: 12-02-2022 End: 12-02-2022 ambulatory [facility] Work Phone: Start: 12-02-2022 End: 12-02-2022 Patient encounter procedure [facility]-Outpatient Bone Densitometry Start: 11-16-2022 End: 11-16-2022 ambulatory [facility] Work Phone: Start: 11-16-2022 End: 11-16-2022 Patient encounter procedure [facility] Start: 08-18-2022 End: 08-18-2022 ambulatory DAVID SANTANA Facility:[facility] Start: 08-18-2022 End: 08-18-2022 Patient encounter procedure Brennan Monsivais MD Work Phone: Orthopaedics Comment on above: Arthritis of knee (P rimary Dx) Start: 07-17-2022 End: 07-17-2022 ambulatory SORIN COOLEY Facility:[facility] Start: 07-17-2022 End: 07-17-2022 Patient encounter procedure Sorin Cooley MD Work Phone: Orthopaedics Comment on above: Arthritis of knee (P rimary Dx) Start: 07-17-2022 End: 07-17-2022 Subsequent [facility] Work Phone: [facility] Comment on above: Left knee pain, unsp ecified chronicity [M25.562] Start: 02-06-2022 End: 02-06-2022 Patient encounter procedure [facility]-Cardiovascula r Services Start: 12-31-2021 End: 12-31-2021 Discharged Recurring [facility]-Physical Therapy Start: 11-19-2021 End: 11-19-2021 Patient [facility] Start: 01-12-2018 Ambulatory David Santana Facility:[facility] Start: 08-27-2017 End: 08-28-2017 Ambulatory DAVID SANTANA Facility:[id number] Start: 03-17-2017 [facility]ulatory [facility] Procedures Date Procedure Procedure Detail Performing [...] examinati on knee 3 views Dheeraj Landa APRN.[employer] VARNISHER Work Phone: Start: 12-11-2022 Antibody screen GEO NUNES Comment on above: Order Comment: Speci men Type: BLOOD SPECIMENOrdering Facility: [facility] Address: [address] [place] [address] Performed By: #### T [id number] ####CC [facility] BLOOD BANKCLIA [id number] [place] [address] [place] Start: 12-11-2022 Ecg routine ecg w/le ast 12 lds i&r only [facility] Provider Start: 12-11-2022 History of operative procedure on knee History of right knee joint replacement [place] [id number] Work Phone: Start: 12-02-2022 Dual energy X-ray absorptiometry Start: 07-17-2022 Radiologic exam knee complete 4/more views Sorin Cooley MD Work Phone: Start: 11-19-2021 X-ray of lumbosacral spine Plan of Treatment Date Care Activity Detail Author Start: 12-29-2025 DIABETES SCREEN DIABETES SCREEN [facility] Start: 12-29-2025 Diabetes Screening Diabetes Screenin g [facility] Start: 12-11-2025 DIABETES SCREEN DIABETES SCREEN [facility] Start: 05-14-2024 Covid-19 Vaccine () Covid-19 Vaccine () [facility] Start: 05-14-2024 Influenza vaccination Influenza Vacc ine (#1) [facility] Start: 09-13-2023 Advance Directive Discussion Advance Directive Discussion [facility] Start: 05-14-2023 Influenza vaccination [facility] Start: 12-11-2022 End: 02-10-2023 Ferritin [Mass/volume] in Serum or Plasma FERRITIN BLD Lab Routine Pre-operative examination Expected: 12/11/2022, Expires: 02/10/2023 [facility] Work Phone: Comment on above: Expected: 12/11/2022 , Expires: 02/10/2023 Start: 12-11-2022 End: 02-10-2023 Iron and Iron binding capacity panel - Serum or Plasma IRON + TIBC Lab Routine Pre-operative examination Expected: 12/11/2022, Expires: 02/10/2023 [facility] Work Phone: Comment on above: Expected: 12/11/2022 , Expires: 02/10/2023 Start: 12-11-2022 End: 02-10-2023 TYPE AND SCREEN,30 DAY [facility] Work Phone: Comment on above: Expected: 12/11/2022 , Expires: 02/10/2023 Start: 09-13-2022 ADVANCE DIRECTIVE DISCUSSION ADVANCE DIRECTIVE DISCUSSION [facility] Start: 09-13-20[address] [facility] Start: 05-14-2022 Influenza vaccination INFLUENZA (#1) [facility] Start: 09-13-2021 ADVANCE DIRECTIVE DISCUSSION ADVANCE DIRECTIVE DISCUSSION [facility] Start: 09-13-2021 DEPRESSION ASSESSMENT DEPRESSION ASS [facility] Start: 03-27-2021 Urine microalbumin profile [facility] Start: 03-05-2021 COVID-19 VACCINE (3 - Booster for Pfizer series) COVID-19 VACCINE (3 - Booster for Pfizer series) [facility] Start: 03-05-2021 COVID-19 VACCINE (3 - Pfizer series) COVID-19 VACCINE (3 - Pfizer series) [facility] Start: 12-01-2014 DIABETES SCREEN DIABETES SCREEN [facility] Start: 2013 RSV Vaccine (1 - 1-d ose 75+ series) RSV Vaccine (1 - 1-dose 75+ series) [facility] Start: 03-27-2012 Pneumococcal Vaccine : 65+ (2 of 2 - PCV) Pneumococcal Vaccine: 65+ (2 of 2 - PCV) [facility] Start: 03-27-2012 PNEUMOCOCCAL: 65+ (2 - PCV) PNEUMOCOCCAL: 65+ (2 - PCV) [facility] Start: 1988 SHINGRIX VACCINE (1 of 2) CUELLAR GRIX VACCINE (1 of 2) [facility] Start: 1956 Anxiety Screening Anxiety Screening [facility] Start: 1956 Depression Screening Depression Scre ening [facility] End: 12-12-2023 ECG COMPLETE ECG COMPLETE ECG Routine Pre-operative examination 1 Occurrences starting 12/11/2022 until 12/12/2023 [facility] Work Phone: Comment on above: 1 Occurrences starti ng 12/11/2022 until 12/12/2023 ECG COMPLETE ECG COMPLETE ECG 12/11/2022 3:10 PM EDT [facility] End: 12-12-2023 Echocardiography ECHO Cardiology Routine Pre-operative examination 1 Occurrences starting 12/11/2022 until 12/12/2023 [facility] Work Phone: Comment on above: 1 Occurrences starti ng 12/11/2022 until 12/12/2023 Patient Education ED Concussion ED Scalp Contusion ED Head Injury (Adult) [facility] Work Phone: Patient referral [facility] Work Phone: End: 01-30-2024 XR KNEE POST OP 3V AP/LAT/MERCHANT LEFT XR KNEE POST OP 3V AP/LAT/MERCHANT LEFT Radiology Routine Chronic pain of left knee 1 Occurrences starting 12/31/2022 until 01/30/2024 [facility] Work Phone: Comment on above: 1 Occurrences starti ng 12/31/2022 until 01/30/2024 [facility] Immunizations Immunization Date Immunization Notes Care Provider Fa cility 01-08-2021 Covid (Pfizer) [facility] 12-18-2020 Covid (Pfizer) [facility] 03-27-2011 diphtheria and tetan us toxoids, adsorbed for pediatric use Sorin Cooley MD Work Phone: [facility] 03-27-2011 pneumococcal polysaccharide vaccine, 23 valent Sorin Cooley MD Work Phone: [facility] Payers Date Payer Category Payer Private Health Insurance [id number] 2024 Self-pay [id number] 2021 Medicare [id number] 2021 Medicare HUMANA MEDICARE HUMANA MEDICARE PPO [id number] 2021-Present [phone] [address] [address] [place] [address] PPO [id number] Medicare [id number] Unknown [id number] Unknown [id number] Unknown [id number] Unknown [id number] Unknown [id number] Social History Date Type Detail Facility Start: 05-20-2018 End: 04-09-2023 Tobacco smoking status LAIS Unknown if ever smoked [facility] Start: 1940 Sex Assigned At Female [facility] Start: 07-17-2022 End: 04-09-2023 Tobacco smoking status LAIS Never smoked tobacco [facility] Start: 07-17-2022 Tobacco use and exposure Smokeless tobacco non-user [facility] Start: 07-17-2022 End: 12-11-2022 Alcohol intake Current drinker of alcohol (finding) [facility] Start: 07-17-2022 Tobacco Comment No [facility] Start: 03-27-2011 Alcohol Comment rarely [facility] Start: 1940 Sex Assigned At Not on file [facility] Start: 07-07-2022 End: 07-17-2022 Exposure to SARS-CoV-2 (event) Not sure [facility] Start: 07-17-2022 End: 12-11-2022 History of Social function [facility] Start: 07-17-2022 End: 12-11-2022 Tobacco use panel [facility] National Score (1-100), lower number is lower risk 72 [facility] Start: 12-07-2024 Sex Female (finding) [facility] Medical Equipment Procedure Code Equipment Code Equipment Origin al Text Equipment Identifier Dates Head Fem +5mm 07/26 36mm Hip - [id number] Start: 11-30-2011 Comment on above: Description: ARTICUL IZE METAL ON METAL FEMORAL HEAD Screw Bn 6.5mm 25mm Pinn Canc - [id number] Start: 11-30-2011 Comment on above: Description: PINNACL E CANCELLOUS BONE SCREW Cement Simplex P Bone Radiopaque Full Dose Sterile - [id number] Start: 12-28-2022 Insert Triathlon 4 9mm Tibial Bearing Condylar Stabilize Sterile Knee - [id number] Start: 12-28-2022 Component Triathlon 32mm 10mm Patellar Asymmetric Knee - [id number] Start: 12-28-2022 Baseplate Triathlon 4 Tibial Primary Cement Knee - [id number] Start: 12-28-2022 Cement Simplex P Bone Radiopaque Full Dose Sterile - [id number] Start: 12-28-2022 Cup Actb 52mm Pi nn Sect Srs - [id number] Start: 11-30-2011 Comment on above: Description: PINNACL E GRIPTION ACETABULAR SHELL SECTOR Liner Actb Altrx Neut 52mm 36 - [id number] Start: 11-30-2011 Comment on above: Description: PINNACL E ALTRX POLYETHYLENE ACETABULAR LINER NEUTRAL Stem Fem 12mm Cmntls Clrls Crl - [id number] Start: 11-30-2011 Comment on above: Description: CORAIL FEMORAL STEM WITHOUT COLLAR Component Triathlon 5 Femoral Cruciate Retain Cemented Knee Left - [id number] Start: 12-28-2022 Clinical Notes 09-27-2013 to 12-01-2024 Note Date & Type Note Facility 12-01-2024 Radiology Diagnostic study note [facility] Imaging Services [address] [place] [address] 44691 Ribs Unil 2V No CXR MR#: [id number] Acct: [id number] Name: RADHA GLOVER Rep #: [id number] : 1940 F 84 From: Mita Yañez MD PCP: Dr. Geo Gonzalez MD Status: ALEYDA HUGO Study:Ribs Unil 2V No CXR Date of Exam: 12/01/24 Exam# [id number] Ordering Dr: Geo Gonzalez MD PROCEDURE: RIBS [...] 3. Additional description as above. Reading Location: [facility] CC: Dr. Geo Gonzalez MD ~ Eyeglass Lens Generator: Signed [facility] 12-01-2024 Radiology Diagnostic study note [facility] Imaging Services [address] [place] [address]504 L/S Spine Min 4 Views MR#: [id number] Acct: [id number] Name: RADHA GLOVER Rep #: [id number] : 1940 F 84 From: Mita Yañez MD PCP: Dr. Geo Gonzalez MD Status: REG C Study:L/S Spine Min 4 Views Date of Exam: 12/01/24 Exam# [id number] Ordering Dr: Geo Gonzalez MD PROCEDURE: L/S [...] delineated by MRI as indicated. Reading Location: [id number] CC: Dr. Geo Gonzalez MD ~ Eyeglass Lens Generator: Signed [facility] 05-24-2023 Discharge summary Note Date/Time May 24, 2023 7:20am [facility] Physical Therapy [facility] [address] [place] [address]. [address] [place] [address] / REHABILITATION SERVICES DISCHARGE SUMMARY MR#: [id number] Acct: [id number] Name: RADHA GLOVER Rep #: [id number] : 1940 82 From: Devon Lugo DPT, OCS, CSCS Referring Dr.: OUT OF TOWN DOCTOR Status: REG RCR [...] please feel free to call me at [phone]. Thank you for the referral of thispatient. Sincerely, Devon Lugo DPT, ASHLEY, CSCS Balance/Gait/Functional tests Balance/Special Test Scores Functional Gait Assessment Score: 27 % Disability: 10.0000 Lower Extremity Functional Score: 60 Improvement % Improvement: 100 <Electronically signed by Devon Lugo DPT, ASHLEY, CSCS> 05/24/23 0720 CC: Dr. Geo Gonzalez MD; DHEERAJ LANDA ~ EBG Signed [facility] Work Phone: 1(942) 304-447308-15-2023 NoteHNO ID: [id number] Author: Dheeraj Landa APRN.TORO Service: ? Author [...] 1 year. All questions answered. Dheeraj Landa APRN.CAR VARNISHER [facility] Dis[facility] summary Author [facility] April 09, 2023 7:14pm Note Date/Time April 09, 2023 5:40 pm [facility] Medical Records Department [address] [place] [address] Emergency Department Summary 04/09/23 MR#: [id number] Acct: [id number] Name: RADHA GLOVER Rep #:[id number] : 1940 82 From: Lesley Price PCP: [...] other complaints or concerns at this time. [facility] Medical History Back pain Knee pain Home [...] motor deficits and no sensory deficits noted [place] Coma Scale: document GCS findings Spontaneous Obeys [...] cervical spinal fracture or spondylolisthesis. Electronically Signed: Geo Luis MD at 18:21 EDT , Discharge [...] your Primary Care Provider. Call [facility] ([phone]) or report to the closest Emergency Room. Call 911 if necessary. 04/09/231913 <Electronically signed by Lesley Walker DO> Cosigner Signature (if applicable): CC: Dr. Geo Gonzalez MD ~ Signed [facility] Work Phone: 1(957) 884-925507-18-2023 NoteHNO ID: [id number] Author: Dheeraj Landa APRN.CNP Service: ? Author [...] All questions answered Dheeraj Landa APRN.CNP [facility] History of Present illness Narrative* Dheeraj Landa [...] Landa APRN.CNP Orthopaedic Surgery documented [facility]23 NoteHNO ID: [id number] Author: Dheeraj Landa APRN.CNP Service: ? Author [...] get this scheduled. Dheeraj Landa APRN.CNP [facility] History of Present illness Narrative* Dheeraj Landa [...] Landa APRN.CNP Orthopaedic Surgery documented in this encounterSy[facility]06-09-2023 NoteHNO ID: [id number] Author: Dheeraj Landa APRN.CNP Service: ? Author [...] swelling, drainage, shortness of breath Dheeraj Landa APRN.[facility] Miscellaneous Notes* PT ROUTINE/REASSESSMENT/RECERT/CASE MGMT - Shannan Bean, POTATO CHIP MAKER - 01/20/2023 2:03 PM EDT SITUATION: only [...] summary for intervention/education details. documented in this encounter[facility]05-[facility]-2023 Miscellaneous Notes* PT ROUTINE/REASSESSMENT/RECERT/CASE MGMT - Kaelyn [...] summary for intervention/education details. documented in this encounterSy[facility] Center05-04-2023 NoteHNO ID: [id number] Author: Dheeraj Landa APRN.CAR VARNISHER Service: ? Author Type: Nurse Practitioner Type: [...] swelling, drainage, shortness of breath Dheeraj Landa APRN.CAR VARNISHER [facility]05-04-2023 NoteHNO ID: [id number] Author: SPEEDY Doran Service: Radiology Author Type: [...] BY: SPEEDY Doran January 14, 2023 1:40 PMEast [facility] [id number] History of Present illness Narrative* Dheeraj Landa APRN.CNP - 01/14/2023 2:57 PM EDT Post-op Office [...] of breath Dheeraj Landa APRN.CNP Orthopaedic Surgery documented in this encounterSy[facility]05-04-2023 History of Present illness Narrative* Osmel Dueñas CT - 01/14/2023 1:40 PM EDT Radiology Service Progress Note PATIENT NAME: Radha MCMULLENN: [id number] DATE OF SERVICE: January 14, 2023 TIME: [...] 14, 2023 1:40 PM documented in this encounterSy[facility]04-27-2023 Miscellaneous Notes* PT ROUTINE/REASSESSMENT/RECERT/CASE MGMT - Shannan Vikas, POTATO CHIP MAKER - 01/07/2023 10:10 AM EDT SITUATION: only [...] summary for intervention/education details. documented in this encounterSy[facility] Center04-21-2023 Miscellaneous Notes* PT ROUTINE/REASSESSMENT/RECERT/CASE MGMT - Kaelyn [...] summary for intervention/education details. documented in this encounterSycam[facility] Center04-19-2023 Miscellaneous Notes* PT SOC/SAI/FOLLOW UP/OTHER - Becky Lai, PT - 12/30/2022 11:07 AM EDT SITUATION: [...] knee 0-60 degrees AAROM [facility]. Reviewed and explained homecare [...] summary for intervention/education details. documented in this encounterSycamore Medical Center04-18-2023 NoteHNO ID: [id number] Author: Mirela Xiong (Optomechanical Technician) Service: Pharmacy Author Type: ? Type: Plan of Care Filed: 12/30/2022 11:03 AM Note Text: PHARMACY BEDSIDE DELIVERY SERVICE Patient Name: Radha Glover The marked outpatient medications were Filled at: [facility] and delivered to the patient's bedside to [...] ointment Commonly known as: BACTROBAN Mirela Xiong (Jingshi Wanwei) PAGER: [phone] December 30, 2022 11:03 [facility]Qil[facility]-8801 NoteHNO ID: [id number] Author: González Younger MD Service: General Internal [...] any medication Possible discharge today SIGNATURE: González Younger [place] [address]-18-2023 NoteHNO ID: [id number] Author: Stephen Hughes PA-C Service: Orthopaedic Surgery Author Type: Physician Lotus Notes Administrator Type: Progress Notes Filed: 12/29/2022 8:05 AM [...] 1500 VTE RISK CATEGORY: SURGICAL HIGH RISK ([place], [place]) Active VTE Medication Orders: Anticoagulant AND Antiplatelet Medications (From admission, onward) Start Dose Route Frequency Last Action Ordered Stop 12/29/22 0900 aspirin, enteric coated 81 mg tab(s) (Surgical Risk Categories) 81 mg ORAL 2 TIMES DAILY Ordered 12/28/22 1457 -- Active VTE Prophylaxis Orders: 12/28/22 1500 PNEUMATIC COMPRESSION STOCKINGS ([place], [place]) 12/28/22 1500 ACTIVITY - MOBILIZE PATIENT ([place], [place]) PHYSICAL EXAMINATION: Left Lower Extremity: Dorsalis [...] addiction). Patient demonstrated understanding of risks versus benefits.[facility] HospitalDkhmwwpv99-38-9509 NoteHNO ID: [id number] Author: Jack Suárez APRN.REVERSING MILL ROLLER Service: Anesthesiology Author Type: Nurse Soil Engineer Type: Anesthesia Procedure Notes Filed: 12/28/2022 11:38 AM Note Text: ANESTHESIOLOGY PROCEDURE NOTE Spinal Block General Information Procedure Start Time/Medication Administration: 12/28/2022 11:18 AM Patient location during procedure: OR Timeout Performed Pre-procedure: timeout performed Consent Obtained: Yes Patient identity confirmed: arm band and patient Reason for Block: primary surgical anesthetic Staffing REVERSING MILL ROLLER: Jack Suárez APRN.REVERSING MILL ROLLER Performed by: REVERSING MILL ROLLER Preparation Sterility Preparation: hand hygiene performed prior [...] Assessment Events: tolerated well SIGNATURE: Jack Suárez APRN.REVERSING MILL ROLLER PATIENT NAME: Radha Glover DATE: December 28, 2022 TIME: 11:37 AM CSN: [id number] NoteHNO ID: [id number] Author: Batsheva Proctor MD Service: Anesthesiology Author [...] December 28, 2022 TIME: 10:22 AM CSN: [id number] Instructions* Patient Instructions* Kristine Mason APRN.CAR VARNISHER - 12/11/2022 3:15 PM EDT PATIENT PREOPERATIVE INSTRUCTIONS Brennan Monsivais MD has scheduled you for your procedure at this surgery center: [facility]: [phone] -- [address] [facility] [address]. Please read below carefully for your personalized [...] Procedures: - YOU MUST HAVE A RESPONSIBLE ENERGY PROJECTS LEAD TAKE YOU HOME. A HOUSE FURNISHINGS SUPERVISOR OR CHEESE SPRAYER CANNOT BE MADE A RESPONSIBLE ENERGY PROJECTS LEAD. - We recommend that a responsible person [...] Advance Directive, please fax a copy to [phone] or email to for it to be [...] day. Kristine Mason APRN.CNP documented in this encounterSycamore [facility] Center03-31-2023 History and physical note * Kristine Mason [...] fevers. Neurological: No history of TIA's, stroke, HAND PACKAGER tumor, impaired sensorium, hemiplegia, paraplegia orquadraplegia. No neurological symptoms or problems. Respiratory: No history of current cough or dyspnea, or pneumonia in the past 6 weeks. No history of respiratory/pulmonary symptoms or problems. Cardiovascular: Positive for: hypertension (on rx) Negative for: anticoagulation therapy, arrhythmia, atrial fibrillation, CAD, chest pain, CHF, congenital heart defect, DVT/PE, hyperlipidemia, recent IN, murmur/valvular heart disease, open heart surgery and valve surgery. GI: Positive for: GERD (otc rx as needed) Negative for: abdominal pain, dysphagia, hepatitis, irritable bowel syndrome, inflammatory bowel disease, liver disease, nausea, pancreatitis, vomiting and ETOH >2 drinks/day. : No history of dysuria, frequency or incontinence, stones or chronic kidney disease. No difficulty urinating, nocturia > 1 time per night or hematuria. BALL THREAD MACHINE TENDER: Negative for abnormal vaginal bleeding, abnormal vaginal [...] of surgery. Medication Comments documented by [place] ([facility]) Swetha Dueñas RN on 10/14/2012 at [...] 398 QTC Calculation (Bazett) 426 Calculated P [place] -2 Calculated R [place] 26 Calculated T [place] 63 Impression NORMAL SINUS RHYTHM NORMAL ECG No results found for this or any previous visit (from the past 87149 hour(s)). Assessment Patient has the following medical [...] 35 kg/m^2 Non-male patient STOP-Bang Score: 4 [id number] Score: Age: >=75 Sex: female CHF history: No Hypertension history: Yes Stroke/TIA/thromboembolism history: No Vascular disease history: No Diabetes history: No [id number] Score: 4 ARISCAT Score: Age: >80 Preoperative [...] 3:06 PM PAGER/CONTACT #: documented in this encounterSycamore Medical Center03-28-2023 Miscellaneous Notes* Telephone Encounter - KAILEE Landry - 12/08/2022 11:14 AM EDT TOTAL JOINT COMPLETE CARE PROGRAM PRE-OPERATIVE TEACHING Service D/ate: 12/16/2022 Service Time: 11:33 AM Date of : 1940 Gender: female Date of Surgery: 12/28/22 Procedure: Left Total Knee Replacement Complete Care Program was discussed with the patient: Prepress Manager Identification: Patient identified a health care facilities inspector to help when discharged to home: lives [...] 2022 TIME: 11:14 AM documented in this encounterSycamore Medical Center12-06-2022 NoteHNO ID: [id number] Author: Brennan Monsivais MD Service: ? Author [...] which included preparing to see the patient, [id number] patient care, completing clinical documentation, obtaining and/or [...] 100-299 Normal: 0 (more content not included)... [facility]12-06-2022 History of Present illness Narrative* Brennan Monsivais [...] which included preparing to see the patient, gypg-ig-rspx patient care, completing clinical documentation, obtaining and/or [...] 2022 TIME: 8:32 AM documented in this encounterSycamore Medical Center11-04-2022 NoteHNO ID: [id number] Author: Sorin Cooley MD Service: ? Author [...] satisfaction. This note was partially generated using [employer] voice recognition system and as such may contain grammatical or word errors Sorin Cooley, [facility]11-04-2022 Miscellaneous Notes* [facility] - Mayda Fisher, (R) - 07/17/2022 11:10 AM EDT Radiology Service [...] IV DATA: Not applicable SIGNED BY: RT Yao(Grady) July 17, 2022 9:13 AM documented in this encounterSycamore Medical Center11-04-2022 Progress note* [facility] - Mayda Fisher RT(Grady) - 07/17/2022 11:10 AM EDT Radiology Service [...] RT Yao(R) July 17, 2022 9:13 AM [facility]11-04-[facility] History of Present illness Narrative* Sorin Cooley [...] satisfaction. This note was partially generated using [employer] recognition system and as such may contain grammatical or word errors Sorin Cooley MD documented in this encounterSycamore Medical Center01-15-2014 History of Past illness Narrative* Problem Noted Date Resolved Date Rotator cuff arthropathy 09/27/2013 017 Hip arthritis 10/14/2011 03/23/2012 Hip pain 10/14/2011 03/12/2017 documented as of this encounter (statuses as of 07/17/2022) [place] [address]-15-2014 History of Past illness Narrative* Problem Noted Date Resolved Date Rotator cuff arthropathy 09/27/2013 017 Hip arthritis 10/14/2011 03/23/2012 Hip pain 10/14/2011 03/12/2017 documented as of this encounter (statuses as of 08/18/2022) [facility] of [facility] illness Narrative* Problem Noted Date Resolved Date Rotator cuff arthropathy 09/27/2013 017 Hip arthritis 10/14/2011 03/23/2012 Hip pain 10/14/2011 03/12/2017 documented as of this encounter (statuses as of 12/08/2022) [place] [address]-15-2014 History of Past illness Narrative* Problem Noted Date Resolved Date Rotator cuff arthropathy 09/27/2013 017 Muscle weakness (generalized) 01/22/2012 Hip arthritis 10/14/2011 03/23/2012 Hip pain 10/14/2011 03/12/2017 documented as of this encounter (statuses as of 12/11/2022) [place] [address]-15-2014 History of Past illness Narrative* Problem Noted Date Resolved Date Rotator cuff arthropathy 09/27/2013 017 Muscle weakness (generalized) 01/22/2012 Hip arthritis 10/14/2011 03/23/2012 Hip pain 10/14/2011 03/12/2017 documented as of this encounter (statuses as of 12/16/2022) [facility] Narrative* Problem Noted Date Resolved Date Rotator cuff arthropathy 09/27/2013 017 Muscle weakness (generalized) 01/22/2012 Hip arthritis 10/14/2011 03/23/2012 Hip pain 10/14/2011 03/12/2017 documented as of this encounter (statuses as of 12/31/2022) [facility] Narrative* Problem Noted Date Resolved Date Rotator cuff arthropathy 09/27/2013 017 Muscle weakness (generalized) 01/22/2012 Hip arthritis 10/14/2011 03/23/2012 Hip pain 10/14/2011 03/12/2017 documented as of this encounter (statuses as of 01/01/2023) [facility] Narrative* Problem Noted Date Resolved Date Rotator cuff arthropathy 09/27/2013 017 Muscle weakness (generalized) 01/22/2012 Hip arthritis 10/14/2011 03/23/2012 Hip pain 10/14/2011 03/12/2017 documented as of this encounter (statuses as of 01/02/2023) [facility] Narrative* Problem Noted Date Resolved Date Rotator cuff arthropathy 09/27/2013 017 Muscle weakness (generalized) 01/22/2012 Hip arthritis 10/14/2011 03/23/2012 Hip pain 10/14/2011 03/12/2017 documented as of this encounter (statuses as of 01/06/2023) [facility] Narrative* Problem Noted Date Resolved Date Rotator cuff arthropathy 09/27/2013 017 Muscle weakness (generalized) 01/22/2012 Hip arthritis 10/14/2011 03/23/2012 Hip pain 10/14/2011 03/12/2017 documented as of this encounter (statuses as of 01/07/2023) [address]15-2014 History of Past illness Narrative* Problem Noted Date Resolved Date Rotator cuff arthropathy 09/27/2013 017 Muscle weakness (generalized) 01/22/2012 Hip arthritis 10/14/2011 03/23/2012 Hip pain 10/14/2011 03/12/2017 documented as of this encounter (statuses as of 01/12/2023) [facility] Narrative* Problem Noted Date Resolved Date Rotator cuff arthropathy 09/27/2013 017 Muscle weakness (generalized) 01/22/2012 Hip arthritis 10/14/2011 03/23/2012 Hip pain 10/14/2011 03/12/2017 documented as of this encounter (statuses as of 01/15/2023) [facility] Narrative* Problem Noted Date Resolved Date Rotator cuff arthropathy 09/27/2013 017 Muscle weakness (generalized) 01/22/2012 Hip arthritis 10/14/2011 03/23/2012 Hip pain 10/14/2011 03/12/2017 documented as of this encounter (statuses as of 01/16/2023) [facility] Narrative* Problem Noted Date Resolved Date Rotator cuff arthropathy 09/27/2013 017 Muscle weakness (generalized) 01/22/2012 Hip arthritis 10/14/2011 03/23/2012 Hip pain 10/14/2011 03/12/2017 documented as of this encounter (statuses as of 01/21/2023) [facility] Narrative* Problem Noted Date Resolved Date Rotator cuff arthropathy 09/27/2013 017 Muscle weakness (generalized) 01/22/2012 Hip arthritis 10/14/2011 03/23/2012 Hip pain 10/14/2011 03/12/2017 documented as of this encounter (statuses as of 03/19/2023) [facility] Narrative* Problem Noted Date Resolved Date Rotator cuff arthropathy 09/27/2013 017 Muscle weakness (generalized) 01/22/2012 Hip arthritis 10/14/2011 03/23/2012 Hip pain 10/14/2011 03/12/2017 documented as of this encounter (statuses as of 03/19/2023) [facility] Narrative* Problem Noted Date Diagnosed Date Resolved Date Rotator cuff arthropathy 09/27/2013 Muscle weakness (generalized) 01/22/2012 12/11/2022 Hip arthritis 10/14/2011 03/23/2012 Hip pain 10/14/2011 03/12/2017 documented as of this encounter (statuses as of 03/30/2023) [facility] noteNo assessment information availableWParma Community General [facility] Work Phone: Evaluation note* Diagnosis Arthritis of knee- Primary Unspecified arthropathy, lower leg [facility]* Diagnosis Arthritis of knee- Primary Unspecified arthropathy, lower leg documented in this encounter [facility]* Diagnosis Primary osteoarthritis of left knee- Primary Primary localized osteoarthrosis, lower leg Primary osteoarthritis of left knee Primary localized osteoarthrosis, lower leg documented in this encounter [facility]* Diagnosis Pre-operative examination- Primary Preoperative examination, [...] osteoarthrosis, lower leg documented in this encounter [facility]* Diagnosis Chronic pain of left knee- Primary Pain in joint, lower leg documented in this encounter [facility]* Diagnosis Status post left knee replacement- Primary [facility]* Diagnosis Arthrofibrosis of knee joint, left- Primary Status post left knee replacement documented [facility]* Diagnosis Arthrofibrosis of knee joint, left- Primary Arthrofibrosis of total knee arthroplasty, initial encounter ([facility]) documented in this encounter [facility]* Diagnosis Status post left knee replacement- Primary Arthrofibrosis of knee joint, left documented in this encounter [facility] note* Diagnosis Pre-operative examination- Primary Preoperative examination, [...] joint, lower leg [facility] Additional Instructions Take Tylenol as needed for pain. Use ice for the swelling in the back of your head. Return to the ER if you have worsening symptoms or further concerns/further falls.[facility] Work Phone: Patient's home Plan of [...] effects of pain / antiplatelet medications, med marketing planner set up and med diary and [...] Discuss all medications you are taking, even enfu-kjp-ciiaixt medicines, with your provider and pharmacist since [...] home exercise program. documented in this encounter [facility]* Visit Details [...] get in to her walk in shower [facility] there was no room to stretch out [...] home exercise program. documented in this encounter [facility] home Plan of care note* Visit Details Visit Type -POTATO CHIP MAKER ROUTINE Discipline -Physical Therapy Problems Problem Description [...] home exercise program. documented in this encounter [facility]'s home Plan of care note* Visit [...] home exercise program. documented in this encounter [facility]* Visit Details Visit Type -POTATO CHIP MAKER ROUTINE Discipline -Physical Therapy Problems Problem Description [...] home exercise program. documented in this encounter [facility] for referral (narrative)* Outpatient Procedure (Routine) - Pending Review Specialty Diagnoses / Procedures Referred By Contac t Referred To Contact [facility] [place] Diagnoses Pre-operative examination Procedures ECHO ECHO TTHRC R-T 2D W/WOM-MODE COMPL SPEC&COLR D Kristine Mason APRN.CNP [address] [id number] [facility] [place] [address] [place] [address] Referral ID Status Reason Start Date Expiration Date Visits Requested Visits Authorized [id number] Pending Review Auto-Generat ed Referral 12/11/2022 12/11/2023 1 1 * Outpatient Procedure (Routine) - Closed Specialty Diagnoses / Procedures Referred By Contac t Referred To Contact [facility] [place] Diagnoses Pre-operative examination Procedures ECG COMPLETE ECG ROUTINE ECG W/LEAST 12 LDS W/I&R Kristine Mason APRN.TORO [address] [id number] [facility] [place] [address] [place] [address] Referral ID Status Reason Start Date Expiration Date V isits Requested Visits Authorized [id number] Closed Auto-Generate d Referral 12/11/2022 12/11/2023 1 1 [facility] for referral (narrative)* Diagnostic Procedure Only (Routine) - Authorized Specialty Diagnoses / Procedures Referred By Contac t Referred To Contact XR IMAGING Diagnoses Chronic pain of left knee Procedures XR KNEE POST OP 3V AP/LAT/MERCHANT LEFT RADIOLOGIC EXAMINATION KNEE 3 VIEWS Dheeraj Landa APRN.CNP [address] [place] [address] Xr Imaging Referral ID Status Reason Start Date Expiration Date Visits Requested Visits Authorized [id number] Authorized Auto-Generat ed Referral 12/31/2022 01/29/2024 1 1 [facility] for referral (narrative)* Diagnostic Procedure Only (Routine) - Closed Specialty Diagnoses / Procedures Referred By Contac t Referred To Contact XR IMAGING Diagnoses Chronic pain of left knee Procedures XR KNEE POST OP 3V AP/LAT/MERCHANT LEFT RADIOLOGIC EXAMINATION KNEE 3 VIEWS Dheeraj Landa APRN.TORO [address] [place] [address] Xr Imaging [facility] Referral ID Status Reason Start Date Expiration Date V isits Requested Visits Authorized [id number] Closed Auto-Generate d Referral 12/31/2022 01/29/2024 1 1 [facility] for referral (narrative)No reason for referral information [facility] N[facility]* Diagnostic Procedure Only (Routine) - Closed Specialty Diagnoses / Procedures Referred By Contac t Referred To Contact XR IMAGING Diagnoses Chronic pain of left knee Procedures XR KNEE POST OP 3V AP/LAT/MERCHANT LEFT RADIOLOGIC EXAMINATION KNEE 3 VIEWS Dheeraj Landa APRN.CNP [address] [place] [address] [place] [address] Referral ID Status Reason Start Date Expiration Date V isits Requested Visits Authorized [id number] Closed Auto-Generate d Referral 12/31/2022 01/29/2024 1 1 [facility] for visit Narrative* Diagnostic Procedure Only (Routine) - Closed Specialty Diagnoses / Procedures Referred By Contac t Referred To Contact XR IMAGING Diagnoses Left knee pain, unspecified chronicity Procedures XR KNEE GENERAL 4V AP BOTH/PA BOTH/LAT/MERC LEFT RADIOLOGIC EXAM KNEE COMPLETE 4/[place] [address] [place] [address] [place] [address] Referral ID Status Reason Start Date Expiration Date V isits Requested Visits Authorized [id number] Closed Auto-Generate d Referral 07/02/2022 08/01/2023 1 1 [facility] Summary Purpose Family History No Family History Records FoundNo Family History Records FoundNo Family History Records FoundNo Family History Records FoundNo Family History Records FoundNo Family History Records FoundNo Family History Records Found Advance Directives No Advanced Directives Records Found Advance Directive Response Recorded Date/ Time Living Will Yes May 20, 12:25pm Power of Director Corporate Security Yes May 20, 2018 12:25pm Advance Directive Response Recorded Date/ Time Living Will Yes May 20 11:25am Power of Director Corporate Security Yes May 20, 2018 11:25am Latest Code [...] Date/ Time Name of Medical Power of Director Corporate Security NATHALY PINZON April 09, 2023 5:28pm Living Will Yes April 09, 2023 5:28pm Power of Director Corporate Security Yes April 09 5:28pm Advance Directive Response Recorded Date/ Time Living Will Yes April 09, 2023 4:28pm Power of Director Corporate Security Yes April 09 4:28pm Advance Directive Response Recorded Date/ Time Living Will Yes April 09, 2023 5:28pm Power of Director Corporate Security Yes April 09 5:28pm Date Activated Date [...] section and content) DATE CREATED AUTHOR 03/03/2018 [facility] DATE CREATED AUTHOR AUTHOR'S ORGANIZ ATION 03/03/2018 [facility] DATE CREATED AUTHOR AUTHOR'S ORGANIZ ATION 03/08/2018 [facility] DATE CREATED AUTHOR AUTHOR'S ORGANIZ ATION 03/09/2018 [facility] DATE CREATED AUTHOR AUTHOR'S ORGANIZ ATION 03/24/2023 [facility] DATE CREATED AUTHOR AUTHOR'S ORGANIZ ATION 04/28/2023 [facility] DATE CREATED AUTHOR AUTHOR'S ORGANIZ ATION 03/03/2025 [facility] Goals (unrecognized section and content) Goals may [...] or prosecute any alcohol or drug abuse patient.[facility] the event this information is protected by the Federal Confidentiality of Alcohol and Drug Abuse Patient Records regulations: The Federal rules restrict any use of the information to criminally investigate or prosecute any alcohol or drug abuse patient.[facility] the event this information is protected by the Federal Confidentiality of Alcohol and Drug Abuse Patient Records regulations: The Federal rules restrict any use of the information to criminally investigate or prosecute any alcohol or drug abuse patient.[facility] Center[facility] the event this information is protected by the Federal Confidentiality of Alcohol and Drug Abuse Patient Records regulations: The Federal rules restrict any use of the information to criminally investigate or prosecute any alcohol or drug abuse patient.[facility] CenterIn the event this information is protected by the Federal Confidentiality of Alcohol and Drug Abuse Patient Records regulations: The Federal rules restrict any use of the information to criminally investigate or prosecute any alcohol or drug abuse patient.[facility] Center[facility] the event this information is protected by the Federal Confidentiality of Alcohol and Drug Abuse Patient Records regulations: The Federal rules restrict any use of the information to criminally investigate or prosecute any alcohol or drug abuse patient.[facility] Center[facility] the event this information is protected by the Federal Confidentiality of Alcohol and Drug Abuse Patient Records regulations: The Federal rules restrict any use of the information to criminally investigate or prosecute any alcohol or drug abuse patient.[facility] Center[facility] the event this information is protected by the Federal Confidentiality of Alcohol and Drug Abuse Patient Records regulations: The Federal rules restrict any use of the information to criminally investigate or prosecute any alcohol or drug abuse patient.[facility] CenterIn the event this information is protected by the Federal Confidentiality of Alcohol and Drug Abuse Patient Records regulations: The Federal rules restrict any use of the information to criminally investigate or prosecute any alcohol or drug abuse patient.[facility] CenterIn the event this information is protected by the Federal Confidentiality of Alcohol and Drug Abuse Patient Records regulations: The Federal rules restrict any use of the information to criminally investigate or prosecute any alcohol or drug abuse patient.[facility] Center[facility] the event this information is protected by the Federal Confidentiality of Alcohol and Drug Abuse Patient Records regulations: The Federal rules restrict any use of the information to criminally investigate or prosecute any alcohol or drug abuse patient.[facility] CenterIn the event this information is protected by the Federal Confidentiality of Alcohol and Drug Abuse Patient Records regulations: The Federal rules restrict any use of the information to criminally investigate or prosecute any alcohol or drug abuse patient.[facility] CenterIn the event this information is protected by the Federal Confidentiality of Alcohol and Drug Abuse Patient Records regulations: The Federal rules restrict any use of the information to criminally investigate or prosecute any alcohol or drug abuse patient.[facility] CenterIn the event this information is protected by the Federal Confidentiality of Alcohol and Drug Abuse Patient Records regulations: The Federal rules restrict any use of the information to criminally investigate or prosecute any alcohol or drug abuse patient.[facility] CenterIn the event this information is protected by the Federal Confidentiality of Alcohol and Drug Abuse Patient Records regulations: The Federal rules restrict any use of the information to criminally investigate or prosecute any alcohol or drug abuse patient.[facility] CenterIn the event this information is protected by the Federal Confidentiality of Alcohol and Drug Abuse Patient Records regulations: The Federal rules restrict any use of the information to criminally investigate or prosecute any alcohol or drug abuse patient.[facility] CenterIn the event this information is protected by the Federal Confidentiality of Alcohol and Drug Abuse Patient Records regulations: The Federal rules restrict any use of the information to criminally investigate or prosecute any alcohol or drug abuse patient.[facility] CenterIn the event this information is protected by the Federal Confidentiality of Alcohol and Drug Abuse Patient Records regulations: The Federal rules restrict any use of the information to criminally investigate or prosecute any alcohol or drug abuse patient.[facility] CenterIn the event this information is protected by the Federal Confidentiality of Alcohol and Drug Abuse Patient Records regulations: The Federal rules restrict any use of the information to criminally investigate or prosecute any alcohol or drug abuse patient.[facility] Reason for Visit (unrecogniz ed section and content) Reason Comments New Knee Pain Reason Comments New Pain Reason Comments Consult Reason Comments Pre-Op Teaching Specialty Diagnoses / Procedures Referred By Vicente hayward Referred To Contact [facility] Home Care [address] [place] [address] Referral ID Status Reason Start Date Expiration Date Visits Re quested Visits Authorized [id number] 1 1 Reason Comments Home Care Dressing removal Reason Comments Home Care Out patient PT Reason Comments Established Patient Follow Up Post Op Knee Replacement Care Teams (unrecognized sec tion and content) Supply Chain Logistics Manager Relationship Specialty Start Date End Date David Santana MD [address] [place] [address] PCP - General Internal Medicine 03/12/17 Supply Chain Logistics Manager Relationship Specialty Start Date End Date David Santana MD [address] [place] [address] PCP - General Internal Medicine 03/12/17 Team Status: Active Member Role Status Dates DAVID SANTANA Family Provider Active Dr. Geo Gonzalez MD Primary Care Provider Active Team Status: Inactive Member Role Status Dates Dr. Geo Gonzalez MD Primary Care Provider, Attending Provider Active Supply Chain Logistics Manager Relationship Specialty Start Date End Date David Santana MD [address] [place] [address] PCP - General Internal Medicine 03/12/17 Sissen, Arlin, [facility] [address] [place] [address] Specialty Taxation Consultant Orthopedics 12/08/22 02/04/23 Supply Chain Logistics Manager Relationship Specialty Start Date End Date Geo Gonzalez MD [address] [facility] [address] [place] [address] PCP - General Family Medicine 12/08/22 Sissen, Arlin, [facility] [address] [place] [address] Specialty Taxation Consultant Orthopedics 12/08/22 02/04/23 Supply Chain Logistics Manager Relationship Specialty Start Date End Date Geo Gonzalez MD [address] [facility] [address] [place] [address] PCP - General Family Medicine 12/08/22 Sissen, Arlin, [facility] [address] [place] [address] Specialty Taxation Consultant Orthopedics 12/08/22 02/04/23 Supply Chain Logistics Manager Relationship Specialty Start Date End Date Geo Gonzalez MD [address] [facility] [address] [place] [address] PCP - General Family Medicine 12/08/22 Sissen, Arlin, [facility] [address] [place] [address] Specialty Taxation Consultant Orthopedics 12/08/22 02/04/23 Brennan Monsivais MD [address] [place] [address] Home Care Provider Orthopedics 12/29/22 Dheeraj Landa APRN.CAR VARNISHER [address] [place] [address] Referring Orthopedics 12/29/22 Kaelyn Blake, PT [address] [place] [address] Board Design Engineer Post Acute Care 12/29/22 Supply Chain Logistics Manager Relationship Specialty Start Date End Date Geo Gonzalez MD [address] [facility] [address] [place] [address] PCP - General Family Medicine 12/08/22 Arlin Jean-Baptiste, [facility] [address] [place] [address] Specialty Taxation Consultant Orthopedics 12/08/22 02/04/23 Brennan Monsivais MD [address] [place], [place] [phone] Home Care Provider Orthopedics 12/29/22 Dheerja Landa, LINDA.CAR VARNISHER [address] [address] Referring Orthopedics 12/29/22 Kaelyn Blake, PT [address] [place] [address] Board Design Engineer Post Acute Care 12/29/22 Supply Chain Logistics Manager Relationship Specialty Start Date End Date Geo Gonzalez MD [address] [facility] [address] [place] [address] PCP - General Family Medicine 12/08/22 Arlin Jean-Baptiste, [facility] [address] [place] [address] Specialty Taxation Consultant Orthopedics 12/08/22 02/04/23 Brennan Monsivais MD [address] [place], [place] [phone] Home Care Provider Orthopedics 12/29/22 Dheeraj Landa APRN.CAR VARNISHER [address] [address] Referring Orthopedics 12/29/22 Kaelyn Blake, PT [address] [place] [address] Board Design Engineer Post Acute Care 12/29/22 Supply Chain Logistics Manager Relationship Specialty Start Date End Date Geo Gonzalez MD [address] [facility] [address] [place], [place] [address] PCP - General Family Medicine 12/08/22 SisArlin swanson, P[facility] [address] [place] [address] Specialty Taxation Consultant Orthopedics 12/08/22 02/04/23 Brennan Monsivais MD [address] [place], [place] [id number] Home Care Provider Orthopedics 12/29/22 Dheeraj Landa APRN.CAR VARNISHER [address] [place] [address] Referring Orthopedics 12/29/22 Kaelyn Blake, PT [address] [place] [address] Board Design Engineer Post Acute Care 12/29/22 Supply Chain Logistics Manager Relationship Specialty Start Date End Date Geo Gonzalez MD [address] [facility] [address] [place] [address] PCP - General Family Medicine 12/08/22 Arlin Jean-Baptiste, [facility] [address] [place] [address] Specialty Taxation Consultant Orthopedics 12/08/22 02/04/23 Brennan Monsivais MD [address] [place] [address] Home Care Provider Orthopedics 12/29/22 Dheeraj Landa APRN.CAR VARNISHER [address] [place] [address] Referring Orthopedics 12/29/22 Kaelyn Blake, PT [address] [place] [address] Board Design Engineer Post Acute Care 12/29/22 Supply Chain Logistics Manager Relationship Specialty Start Date End Date Geo Gonzalez MD [address] [facility] [address] [place] [address] PCP - General Family Medicine 12/08/22 Arlin Jean-Baptiste, [facility] [address] [place] [address] Specialty Taxation Consultant Orthopedics 12/08/22 02/04/23 Brennan Monsivais MD [address] [place], [place] [phone] Home Care Provider Orthopedics 12/29/22 Dheeraj Landa APRN.CAR VARNISHER [address] [place] [address] Referring Orthopedics 12/29/22 Kaelyn Blake, PT [address] [place] [address] Board Design Engineer Post Acute Care 12/29/22 Supply Chain Logistics Manager Relationship Specialty Start Date End Date Geo Gonzalez MD [address] [facility] [address] [place] [address] PCP - General Family Medicine 12/08/22 Arlin [facility]aptiste, [facility] [address] [place] [address] Specialty Taxation Consultant Orthopedics 12/08/22 02/04/23 Brennan Monsivais MD [address] [place], [place] [phone] Home Care Provider Orthopedics 12/29/22 Dheeraj Landa APRN.CAR VARNISHER [address] [place] [address] Referring Orthopedics 12/29/22 Kaelyn Blake, PT [address] [place] [address] Board Design Engineer Post Acute Care 12/29/22 Supply Chain Logistics Manager Relationship Specialty Start Date End Date Geo Gonzalez MD [address] [facility] [address] [place] [address] PCP - General Family Medicine 12/08/22 Brennan Monsivais MD [address] [place] [address] Home Care Provider Orthopedics 12/29/22 Dheeraj Landa, LINDA.[address] [address] Referring Orthopedics 12/29/22 Kaelyn Blake, PT [address] [place] [address] Board Design Engineer Post Acute Care 12/29/22 Supply Chain Logistics Manager Relationship Specialty Start Date End Date Geo Gonzalez MD [address] [facility] [address] [place] [address] PCP - General Family Medicine 12/08/22 Brennan Monsivais MD [address] [place] [address] Home Care Provider Orthopedics 12/29/22 Dheeraj Landa, BOATING SAFETY OFFICER.CAR VARNISHER [address] [place] [address] Referring Orthopedics 12/29/22 Kaelyn Blake, PT [address] [place] [address] Board Design Engineer Post Acute Care 12/29/22 Supply Chain Logistics Manager Relationship Specialty Start Date End Date Geo Gonzalez MD [address] [facility] [address] [place] [address] PCP - General Family Medicine 12/08/22 Brennan Monsivais MD [address] [place] [address] Home Care Provider Orthopedics 12/29/22 Dheeraj Landa APRN.CNP [address] [address] Referring Orthopedics 12/29/22 Kaelyn Blake, PT [address] [place] [address] Board Design Engineer Post Acute Care 12/29/22 Team Status: Active Member Role Status Dates Dr. Geo Gonzalez MD Primary Care Provider Active CORDELL MONTEJO Attending Provider, Referring Provider Active Team Status: Inactive Member Role Status Dates Dr. Geo Gonzalez MD Primary Care Provider Active Dr. Lesley Walker DO Emergency Provider Active Team Status: Inactive Member Role Status Dates Dr. Geo Gonzlaez MD Primary Care Provider Active CORDELL MONTEJO [...] MD Attending Provider, Referring P rovider Active Supply Chain Logistics Manager Relationship Specialty Start Date End Date Geo Gonzalez MD [address] [facility] [address] [place] [address] PCP - General Family Medicine 12/08/22 Arlin Jean-Baptiste [facility] [address] [place] [address] Specialty Taxation Consultant Orthopedics 12/08/22 02/04/23 Brennan Monsivais MD [address] [place] [address] Home Care Provider Orthopedics 12/29/22 Dheeraj Landa APRN.CNP [address] [address] Referring Orthopedics 12/29/22 TerrysatinderAta Henryon, PT [address] [place] [address] Board Design Engineer Post Acute Care 12/29/22 04/12/23 Supply Chain Logistics Manager Relationship Specialty Start Date End Date David [...] February 01, 2025 End: February 01, 2025 Team Status: Inactive Member Role Status Dates Dr. Geo Gonzalez MD Primary Care Provider Active Start: February 22, 2025 End: February 22, 2025 Dr. Geo Gonzalez MD Attending Provider Active Start: February 22, 2025 End: February 22, 2025 Dr. Geo Gonzalez MD Referring Provider Active Start: February 22, 2025 End: February 22, 2025 FOR RECORDS PERTAINING TO PATIENTS WHO [...] BE BASED ON THE PRIMARY CLINICAL RECORDS. [facility] [facility]. provides no warranty or guarantee of the accuracy or completeness of information in this document.
--- OUTSIDE RECORDS SUMMARY | 2025-03-29 20:44 | XMS RPT_ITS | CCD ---
Author Organization [facility] [employer] Care Team Providers Care Telecommunications Manager Name Role Phone David Santana Unavailable Unavailable DEBS, DAVID Unavailable Unavailable DEBS, DAVID Unavailable Unavailable GERMAN SALCEDO Unavailable Unavailable GERMAN SALCEDO Unavailable Unavailable David Santana MD Primary Care Provider David Santana MD Primary Care Provider Arlin Gallardo Unavailable Unavailable Geo Gonzalez MD Primary Care Provider Brennan Monsivais MD Unavailable Cordell PENETRATION TESTER.DEVELOPING MACHINE TENDER, Dheeraj Unavailable [phone] Hayden PT, Kaelyn Unavailable [phone] SORIN COLOEY Referring Unavailable DAVID SANTANA Primary Care Unavailable [...] Provider Carlos DILLON, Dr. Guardado Referring Provider Geo Gonzalez Primary Care Unavailable [...] clarithromycin; Translations: [CLARITHROMYCIN] Drug Allergy 02-20-2013 Intolerance [facility] Repository (20 sources) codeine; Translations: [CODEINE] Drug Allergy 08-20-[address] [facility] Repository (20 sources) HYDROcodone; Translations: [HYDROCODONE] Drug Allergy 02-20-[address] [facility] Repository (20 sources) traMADol; Translations: [TRAMADOL HCL] Drug Allergy 02-20-2013 Intolerance [facility] Repository Medications Current Medications Medication Drug Class(es) Dates Sig (Normalized) Sig (Original) acetaminophen 500 mg oral tablet (13 sources) Start: 12-29-2022 take 2 tablets by mouth every eight hours as needed acetaminophen (TYLENOL) 500 mg tablet Take 2 tablets by mouth every 8 hours as needed for pain. 90 tablet 12/29/2022 Active Comment on above: Take 2 tablets by mo [facility] every 8 hours as needed for pain. [...] DAILY May 20, 2018 12:00am Start: 05-20-2018 Losartan-Lavina chlorothiazide Active 1 EACH PO DAILY May [...] Take by mouth. Take 1 tablet by [facility] twice daily for 28 days. Take 81 mg by mouth once daily. docusate sodium 100 mg oral capsule (10 sources) Start: 12-30-19 End: 01-30-20 take 1 capsule by mouth every twelve hours as needed docusate sodium (COLACE) 100 mg capsule Take 1 capsule by mouth twice daily as needed for constipation. 60 capsule 12/29/2022 01/29/2023 Comment on above: Take 1 capsule by [facility] twice daily as needed for constipation. oxyCODONE [...] Comment on above: Take 1 tablet by [facility] DAILY (6 AM) for 14 days. perflutren lipid microspheres 1.3 mL in NaCl (PF) 0.9% 10 mL injection (DEFINITY) (14 sources) Start: 12-12-19 End: 03-11-20 perflutren lipid microspheres 1.3 mL in NaCl (PF) 0.9% 10 mL injection (DEFINITY) polyethylene glycol 3350 16558 mg powder for oral solution (7 sources) [...] 02-22-2025 Urate [Mass/Vol] 7.6 mg/dL High 2.6-6.0 [facility] Comment on above: The drugs N-Acetylcy steine and Metamizole may falsely depress this assay. Uric Acidon 02-22-2025 URIC 7.6 mg/dL High 2.6-6.0 [facility] Comment on above: Result Comment: The drugs N-Acetylcysteine and Metamizole may falsely depress this assay. Performed By: #### L 501.1400 #### [facility] [address] [place], [address] Absolute lymphocyte countOrd ered By: Geo Gonzalez on 02-01-2025 Lymphocytes Auto (Unsp spec) [#/Vol] 1.90 10*3/uL 0.83-4.51 [facility] Absolute neutrophil countOrd ered By: Geo Gonzalez on 02-01-2025 Neutrophils (Bld) [#/Vol] 3.9 10*3/uL 2.0-7.7 [facility] Automated lymphocyte count a s percentage of total leukocytesOrdered By: Geo Carlos on 02-01-2025 Lymphocytes/100 WBC Auto (Unsp spec) 27.9 % 19-41 [facility] Basophil percentageOrdered B y: Geo Gonzalez on 02-01-2025 Basophils/100 WBC (Bld) 0.4 % 0-1 [facility] CBC W/Diff, Automatedon 01-12 Absolute Lymph 1.90 X10 3/uL Normal 0.83-4.51 [facility] Comment on above: Performed By: #### L 100.0100 #### [facility] [address] [place], [address] Absolute Neut 3.9 X10 3/uL Normal 2.0-7.7 [facility] Comment on above: Performed By: #### L 100.0100 #### [facility] [address] [place], [address] Basophils/100 WBC (Bld) 0.4 % Normal 0-1 [facility] Comment on above: Performed By: #### L 100.0100 #### [facility] [address] [place], [address] Eosinophils/100 WBC (Bld) 5.0 % Normal 0-5 [facility] Comment on above: Performed By: #### L 100.0100 #### [facility] [address] [place], [address] Erythrocyte distribution width (RBC) [Ratio] 12.8 % Normal 11.6-14.6 [facility] Comment on above: Performed By: #### L 100.0100 #### [facility] [address] [place], [address] Hematocrit (Bld) [Volume fraction] 39.3 % Normal 37-47 [facility] Comment on above: Performed By: #### L 100.0100 #### [facility] [address] [place], [address] Hemoglobin (Bld) [Mass/Vol] 12.8 g/dL Normal 12.0-15.0 [facility] Comment on above: Performed By: #### L 100.0100 #### [facility] [address] [place], [address] IG% 0.300 Normal 0.0-0.9 [facility] Comment on above: Result Comment: IG% - Immature Granulocytes (promyelocytes, myelocytes and metamyelocytes) > 1% indicates that a LEFT SHIFT is Present. Performed By: #### L 100.0100 #### [facility] [address] [place], [address] Lymphocytes/100 WBC (Bld) 27.9 % Normal 19-41 [facility] Comment on above: Performed By: #### L 100.0100 #### [facility] [address] [place], [address] MCH (RBC) [Entitic mass] 30.2 pg Normal 27.0-32.0 [facility] Comment on above: Performed By: #### L 100.0100 #### [facility] [address] [place] [place], [address] MCHC (RBC) [Mass/Vol] 32.6 g/dL Normal 32-36 [facility] Comment on above: Performed By: #### L 100.0100 #### [facility] [address] [place], [address] MCV (RBC) [Entitic vol] 92.7 fL Normal 81-99 [facility] Comment on above: Performed By: #### L 100.0100 #### [facility] [address] [place], [address] Monocytes/100 WBC (Bld) 8.8 % Normal 0-10 [facility] Comment on above: Performed By: #### L 100.0100 #### [facility] [address] [place], [address] Neutrophils/100 WBC (Bld) 57.6 % Normal 47-70 [facility] Comment on above: Performed By: #### L 100.0100 #### [facility] [address] [place], [address] Nucleated RBC (Bld) [#/Vol] 0 10*3/uL Normal 0-5 [facility] Comment on above: Performed By: #### L 100.0100 #### [facility] [address] [place], [address] Platelet mean volume (Bld) [Entitic vol] 10.6 fL Normal 6.2-12.0 [facility] Comment on above: Performed By: #### L 100.0100 #### [facility] [address] [place], [address] Platelets (Bld) [#/Vol] 254 10*3/uL Normal 150-450 [facility] Comment on above: Performed By: #### L 100.0100 #### [facility] [address] [place], [address] RBC (Bld) [#/Vol] 4.24 10*6/uL Normal 4.2-5.4 [facility] Comment on above: Performed By: #### L 100.0100 #### [facility] [address] [place], [address] RDW SD 43.8 fl Normal 35.1-43.9 [facility] Comment on above: Performed By: #### L 100.0100 #### [facility] [address] [place], [address] WBC (Bld) [#/Vol] 6.8 10*3/uL Normal 4.4-11.0 [facility] Comment on above: Performed By: #### L 100.0100 #### [facility] [address], [address] Eosinophil percentageOrdered By: Geo Gonzalez on 02-01-2025 Eosinophils/100 WBC (Bld) 5.0 % 0-5 [facility] Erythrocyte distribution wid th ratioOrdered By: Geo Gonzalez on 02-01-2025 Erythrocyte distribution width (RBC) [Ratio] 12.8 % 11.6-14.6 [facility] Erythrocyte distribution wid th standard deviationOrdered By: Geo Gonzalez on 02-01-2025 Erythrocyte distribution width (RBC) [Ratio] 43.8 fl 35.1-43.9 [facility] Hematocrit Auto (Bld) [Volum e fraction]Ordered By: Geo Gonzalez on 02-01-2025 Hematocrit (Bld) [Volume fraction] 39.3 % 37-47 [facility] Hemoglobin measurementOrdere d By: Geo Gonzalez on 02-01-2025 Hemoglobin (Bld) [Mass/Vol] 12.8 g/dL 12.0-15.0 [facility] Immature granulocytes/100 WB C Auto (Bld)Ordered By: Geo Gonzalez on 02-01-2025 Immature granulocytes/100 WBC (Bld) 0.300 % 0.0-0.9 [facility] Comment on above: IG% - Immature Granu locytes (promyelocytes, myelocytes and metamyelocytes) > 1% indicates that a LEFT SHIFT is Present. MCV (mean corpuscular volume ) determinationOrdered By: Geo Gonzalez on 02-01-2025 MCV (RBC) [Entitic vol] 92.7 fL 81-99 [facility] Mean corpuscular hemoglobin (MCH) determinationOrdered By: Geo Gonzalez on 02-01-2025 MCH (RBC) [Entitic mass] 30.2 pg 27.0-32.0 [facility] Mean corpuscular hemoglobin concentration (MCHC) determinationOrdered By: Geo Gonzalez on 02-01-2025 MCHC (RBC) [Mass/Vol] 32.6 g/dL 32-36 [facility] Mean platelet volume determi nationOrdered By: Geo Gonzalez on 02-01-2025 Platelet mean volume (Bld) [Entitic vol] 10.6 fL 6.2-12.0 [facility] Monocyte percentageOrdered B y: Geo Gonzalez on 02-01-2025 Monocytes/100 WBC (Bld) 8.8 % 0-10 [facility] Neutrophil percentageOrdered By: Geo Gonzalez on 02-01-2025 Neutrophils/100 WBC (Bld) 57.6 % 47-70 [facility] Nucleated red blood cell per centageOrdered By: Geo Gonzalez on 02-01-2025 Nucleated RBC/100 WBC (Bld) [Ratio] 0 % 0-5 [facility] Platelet countOrdered By: Alexandra Gonzalez on 02-01-2025 Platelets (Bld) [#/Vol] 254 10*3/uL 150-450 [facility] RBC Auto (Bld) [#/Vol]Ordere d By: Geo Gonzalez on 02-01-2025 RBC (Bld) [#/Vol] 4.24 10*6/uL 4.2-5.4 [facility] White blood cell (WBC) count Ordered By: Geo Gonzalez on 02-01-2025 WBC (Bld) [#/Vol] 6.8 10*3/uL 4.4-11.0 [facility] L/S Spine Min 4 Viewson 11-12 L/S Spine Min 4 Views [facility] Imaging Services [address] [place] [address] L/S Spine Min 4 Views MR#: [id number] Acct: [id number] Name: RADHA GLOVER Rep #: [id number] : 1940 F 84 From: Thierry Yañez MD PCP: Dr. Geo Gonzalez MD Status: REG CLI Study: L/S Spine Min 4 Views Date of Exam: 12/01/24 Exam# [id number] Ordering Dr: Geo Gonzalez MD PROCEDURE: L/S [...] delineated by MRI as indicated. Reading Location: [id number] CC: Dr. Geo Gonzalez MD Gum Puller: Signed Normal [facility] Ribs Unil 2V No CXRon 2024 Ribs Unil 2V No CXR [facility] Imaging Services [address] [place] [address] Ribs Unil 2V No CXR MR#: [id number] Acct: [id number] Name: RADHA GLOVER Rep #: [id number] : 1940 F 84 From: Thierry Yañez MD PCP: Dr. Geo Gonzalez MD Status: REG CLI Study: Ribs Unil 2V No CXR Date of Exam: 12/01/24 Exam# [id number] Ordering Dr: Geo Gonzalez MD PROCEDURE: RIBS [...] 3. Additional description as above. Reading Location: [id number] CC: Dr. Geo Gonzalez MD Gum Puller: Signed Normal [facility] Basic Metabolic Profile (BMP )on 10-16-2024 BUN/CRE 18.2 RATIO Normal 10-20 [facility] Comment on above: Performed By: #### L 500.4100, L500.2500 #### [facility] [address] [facility] [place] [address] [place],Total 9.4 mg/dL Normal 8.5-10.1 [facility] Comment on above: Performed By: #### L 500.4100, L500.2500 #### [facility] [address] [facility] [place] [address] Chloride [Moles/Vol] 106 mmol/L Normal 98-107 [facility] Comment on above: Performed By: #### L 500.4100, L500.2500 #### [facility] [address] [facility] [place] [address] CO2 [Moles/Vol] 24.0 mmol/L Normal 21.0-32.0 [facility] Comment on above: Performed By: #### L 500.4100, L500.2500 #### [facility] [address] [facility] [place] [address] Creatinine [Mass/Vol] 0.99 mg/dL Normal 0.55-1.02 [facility] Comment on above: Result Comment: The validity of the calculated GFR GFRAA in patients over 70 years has not been determined. Clinical correlation is essential. Performed By: #### L 500.4100, L500.2500 #### [facility] [address] [place], [address] EST GFR - AA 68 mL/min Normal >60 [facility] Comment on above: Result Comment: Afri can [place] GFR Calc Performed By: #### L 500.4100, L500.2500 #### [facility] [address] [place], [address] GAP 9 Normal 5-15 [facility] Comment on above: Performed By: #### L 500.4100, L500.2500 #### [facility] [address] [place], [address] GFR/1.73 sq M.predicted among non-blacks MDRD (S/P/Bld) [Vol rate/Area] 57 mL/min/{1.73_m2} Low >60 [facility] Comment on above: Result Comment: Non- GFR Calc Performed By: #### L 500.4100, L500.2500 #### [facility] [address] [place], [address] Glucose [Mass/Vol] 116 mg/dL High 74-106 [facility] Comment on above: Result Comment: Fast ing Glucose result from 100 to 125 mg/dL suggests IMPAIRED HOMEOSTASIS per A.D.A. criteria. Performed By: #### L 500.4100, L500.2500 #### [facility] [address] [place], [address] Potassium [Moles/Vol] 3.8 mmol/L Normal 3.5-5.1 [facility] Comment on above: Performed By: #### L 500.4100, L500.2500 #### [facility] [address] [place], [address] Sodium [Moles/Vol] 139 mmol/L Normal 136-145 [facility] Comment on above: Performed By: #### L 500.4100, L500.2500 #### [facility] [address] [place], [address] Urea nitrogen [Mass/Vol] 18 mg/dL Normal 7-18 [facility] Comment on above: Performed By: #### L 500.4100, L500.2500 #### [facility] [address] [place], [address] Blood urea nitrogen (BUN)/cr eatinine ratioOrdered By: Geo Gonzalez on 10-16-2024 Urea nitrogen/Creatinine [Mass ratio] 18.2 mg/mg 10-20 [facility] Carbon dioxide measurementOr dered By: Geo Gonzalez on 10-16-2024 CO2 [Moles/Vol] 24.0 mmol/L 21.0-32.0 [facility] Chloride measurementOrdered By: Geo Gonzalez on 10-16-2024 Chloride [Moles/Vol] 106 mmol/L 98-107 [facility] Estimated glomerular filtrat ion rate (GFR) AmericanOrdered By: Geo Gonzalez on 10-16-2024 Estimated GFR (MDRD) Amer 68 mL/min >60 [facility] Comment on above: GFR Calc Glomerular filtration rate ( GFR) estimationOrdered By: Geo Gonzalez on 10-16-2024 Estimated GFR (MDRD) Non-Af Amer 57 mL/min Low >60 [facility] Comment on above: Non- GFR Calc GFR/1.73 sq M.predicted among non-blacks MDRD (S/P/Bld) [Vol rate/Area] 57 mL/min/{1.73_m2} Low >60 [facility] Comment on above: Non- GFR Calc Glucose measurementOrdered B y: Geo Gonzalez on 10-16-2024 Glucose [Mass/Vol] 116 mg/dL High 74-106 [facility] Comment on above: Fasting Glucose resu lt from 100 to 125 mg/dL suggests IMPAIRED HOMEOSTASIS per A.D.A. criteria. High density lipoprotein (HD L) measurementOrdered By: Geo Gonzalez on 10-16-2024 Cholesterol in HDL [Mass/Vol] 58 mg/dL >40 [facility] Comment on above: The drugs N-Acetylcy steine and Metamizole may falsely depress this assay. Reference Range HDL <40 mg/dL Low HDL Cholesterol HDL >or= 60 mg/dL High HDL Cholesterol Lipid Profileon 10-16-2024 Cholesterol [Mass/Vol] 271 mg/dL High 200 [facility] Comment on above: Result Comment: <200 mg/dL Desirable 200-240 mg/dL Borderline >240 mg/dL High Risk Performed By: #### L 500.4100, L500.2500 #### [facility] [address] [place], [address] Cholesterol in HDL [Mass/Vol] 58 mg/dL Normal [facility] Comment on above: Result Comment: The drugs N-Acetylcysteine and Metamizole may falsely depress this assay. Reference Range HDL <40 mg/dL Low HDL Cholesterol HDL >or= 60 mg/dL High HDL Cholesterol Performed By: #### L 500.4100, L500.2500 #### [facility] [address] [place], [address] Cholesterol in LDL [Mass/Vol] 172 mg/dL High 0-130 [facility] Comment on above: Performed By: #### L 500.4100, L500.2500 #### [facility] [address] [place], [address] Cholesterol in VLDL [Mass/Vol] 41 mg/dL High 5-40 [facility] Comment on above: Performed By: #### L 500.4100, L500.2500 #### [facility] [address] [place], [address] Triglyceride [Mass/Vol] 205 mg/dL High [facility] Comment on above: Result Comment: The drugs N-Acetylcysteine and Metamizole may falsely depress this assay. Serum Triglycerides Reference Interval Normal <150 mg/dL Borderline high 150 - 199 mg/dL High 200 - 499 mg/dL Very High > or = 500 mg/dL Performed By: #### L 500.4100, L500.2500 #### [facility] [address] [place], [address] Low density lipoprotein (LDL ) cholesterol measurementOrdered By: Geo Gonzalez on 10-16-2024 Cholesterol in LDL [Mass/Vol] 172 mg/dL High 0-130 [facility] Potassium measurementOrdered By: Geo Gonzalez on 10-16-2024 Potassium [Moles/Vol] 3.8 mmol/L 3.5-5.1 [facility] Serum anion gap measurementO rdered By: Geo Gonzalez on 10-16-2024 Anion gap [Moles/Vol] 9 mmol/L 5-15 [facility] Serum or plasma calcium pastor urement (mass/volume)Ordered By: Geo Gonzalez on 10-16-2024 Calcium [Mass/Vol] 9.4 mg/dL 8.5-10.1 [facility] Serum or plasma cholesterol measurement (mass/volume)Ordered By: Geo Gonzalez on 10-16-2024 Cholesterol [Mass/Vol] 271 mg/dL High <200 [facility] Comment on above: <200 mg/dL Desirable [...] 10-16-2024 Urea nitrogen [Mass/Vol] 18 mg/dL 7-18 [facility] Sodium levelOrdered By: Geo Gonzalez on 10-16-2024 Sodium [Moles/Vol] 139 mmol/L 136-145 [facility] Triglycerides measurementOrd ered By: Geo Gonzalez on 10-16-2024 Triglyceride [Mass/Vol] 205 mg/dL High <199 [facility] Comment on above: The drugs N-Acetylcy steine and Metamizole may falsely depress this assay.Serum Triglycerides Reference Interval Normal <150 mg/dL Borderline high 150 - 199 mg/dL High 200 - 499 mg/dL Very High > or = 500 mg/dL Very low density lipoprotein (VLDL) cholesterol measurementOrdered By: Geo Gonzalez on 10-16-2024 Very low density lipoprotein (VLDL) cholesterol measurement 41 mg/dL High 5-40 [facility] VLDL Cholesterol 41 mg/dL High 5-40 [facility] Shoulder min 2 Viewson 03-06 Shoulder min 2 Views [facility] Imaging Services [address] [place] [address] Shoulder min 2 Views MR#: [id number] Acct: [id number] Name: RADHA GLOVER Rep #: [id number] : 1940 F 83 From: Adelfo Calderon MD PCP: Dr. Geo Gonzalez MD Status: [facility] Study: Shoulder min 2 Views Date of Exam: 03/06/24 Exam# [id number] Ordering Dr: Geo Gonzalez MD [id number] STUDY: X-RAY - RIGHT SHOULDER REASON FOR [...] EDT , CC: Dr. Geo Gonzalez MD Gum Puller: Signed Normal [facility] Basophil percentageOrdered B y: Lauri Sheth on 12-04-2023 Hemoglobin (Bld) [Mass/Vol] 12.6 g/dL 12.0-15.0 [facility] WBC (Bld) [#/Vol] 5.9 10*3/uL 4.4-11.0 [facility] Determination of erythrocyte mean corpuscular volume (MCV)Ordered By: Lauri Sheth on 12-04-2023 MCV (RBC) [Entitic vol] 93.1 fL 81-99 [facility] Erythrocyte distribution wid th ratioOrdered By: Lauri Sheth on 12-04-2023 Erythrocyte distribution width (RBC) [Ratio] 12.7 % 11.6-14.6 [facility] Erythrocyte distribution wid th standard deviationOrdered By: Lauri Sheth on 12-04-2023 Erythrocyte distribution width (RBC) [Entitic vol] 43.2 fL 35.1-43.9 [facility] Erythrocyte sedimentation ra teOrdered By: Lauri Sheth on 12-04-2023 ESR (Bld) [Velocity] 7 mm/h 0-30 [facility] Hematocrit Auto (Bld) [Volum e fraction]Ordered By: Lauri Sheth on 12-04-2023 Hematocrit (Bld) [Volume fraction] 39.0 % 37-47 [facility] - Hematology and Cell countsOrdered By: Lauri Sheth on 12-04-2023 MCH (RBC) [Entitic mass] 30.1 pg 27.0-32.0 [facility] MCHC (RBC) [Mass/Vol] 32.3 g/dL 32-36 [facility] Platelet mean volume (Bld) [Entitic vol] 10.7 fL 6.2-12.0 [facility] Platelets (Bld) [#/Vol] 236 10*3/uL 150-450 [facility] No Panel InformationOrdered By: Lauri Sheth on 12-04-2023 C-Reactive Protein Extended Range 3.65 mg/L 0.0-3.0 [facility] Comment on above: C-Reactive Protein ( CRP) provides useful information for thediagnosis, therapy and monitoring of inflammatory processesand associated diseases. For the evaluation of Relative Riskfor Cardiovascular Disease, a High Sensitivity CRP (HSCRP)should be ordered. RBC Auto (Bld) [#/Vol]Ordere d By: Lauri Sheth on 12-04-2023 RBC (Bld) [#/Vol] 4.19 10*6/uL 4.2-5.4 [facility] HIV 1 and HIV-2 antibody ass ay with HIV-1 p24 antigen detectionOrdered By: Geo Gonzalez on 09-09-2023 HIV 1+2 Ab+HIV1 p24 Ag IA Ql Non-Reactive Nonreactive [facility] No Panel InformationOrdered By: Geo Gonzalez on 09-09-2023 Miscellaneous Test See comment [facility] Comment on above: TEST RESULTS LIMITSH [...] should be clinically correlated. [facility] ORIGINAL REPORT ON FILE IN LAB CONTAINS ADDITIONAL TEST SITE INFORMATION. Serum Treponema species anti body detectionOrdered By: Geo Gonzalez on 09-09-2023 Treponema sp Ab Ql (S) Non-Reactive [facility] Absolute lymphocyte countOrd ered By: Devon Dueñas on 06-29-2023 Lymphocytes Auto (Unsp spec) [#/Vol] 1.05 10*3/uL 0.83-4.51 [facility] Basophil percentageOrdered B y: Devon Dueñas on 06-29-2023 Basophils/100 WBC (Bld) 0.1 % 0-1 [facility] Bilirubin [Mass/Vol] 0.30 mg/dL 0.20-1.00 [facility] Comment on above: For patients on eltr ombopag therapy, use of Dimension [place] TBIL is not recommended. Chloride [Moles/Vol] 107 mmol/L 98-107 [facility] Eosinophils/100 WBC (Bld) 0.3 % 0-5 [facility] Glucose [Mass/Vol] 139 mg/dL 74-106 [facility] Comment on above: Fasting Glucose resu lt greater than or equal to 126 mg/dL suggests DIABETES MELLITUS per A.D.A. criteria. Neutrophils (Bld) [#/Vol] 7.4 10*3/uL 2.0-7.7 [facility] Neutrophils/100 WBC (Bld) 83.6 % 47-70 [facility] Potassium [Moles/Vol] 3.8 mmol/L 3.5-5.1 [facility] Protein [Mass/Vol] 7.9 g/dL 6.4-8.2 [facility] Sodium [Moles/Vol] 139 mmol/L 136-145 [facility] WBC (Bld) [#/Vol] 8.9 10*3/uL 4.4-11.0 [facility] Blood erythrocytes count (nu mber/volume)Ordered By: Devon Dueñas on 06-29-2023 RBC (Bld) [#/Vol] 4.50 10*6/uL 4.2-5.4 [facility] Blood hemoglobin measurement (mass/volume)Ordered By: Devon Dueñas on 06-29-2023 Hemoglobin (Bld) [Mass/Vol] 13.2 g/dL 12.0-15.0 [facility] Blood lymphocytes/100 leukoc ytesOrdered By: Devon Dueñas on 06-29-2023 Lymphocytes/100 WBC (Bld) 11.8 % 19-41 [facility] Blood monocytes/100 leukocyt esOrdered By: Devon Dueñas on 06-29-2023 Monocytes/100 WBC (Bld) 3.8 % 0-10 [facility] Blood platelet mean volumeOr dered By: Devon Dueñas on 06-29-2023 Platelet mean volume (Bld) [Entitic vol] 10.8 fL 6.2-12.0 [facility] Determination of erythrocyte mean corpuscular volume (MCV)Ordered By: Devon Dueñas on 06-29-2023 MCV (RBC) [Entitic vol] 92.0 fL 81-99 [facility] Hematocrit Auto (Bld) [Volum e fraction]Ordered By: Devon Dueñas on 06-29-2023 Hematocrit (Bld) [Volume fraction] 41.4 % 37-47 [facility] Laboratory - Chemistry and C hemistry - challengeOrdered By: eDvon Dueñas on 06-29-2023 ALP [Catalytic activity/Vol] 97 U/L 45-117 [facility] ALT [Catalytic activity/Vol] 24 U/L 13-56 [facility] CO2 [Moles/Vol] 26.0 mmol/L 21.0-32.0 [facility] Globulin (S) [Mass/Vol] 4.3 g/dL 2.2-4.2 [facility] Magnesium [Mass/Vol] 2.1 mg/dL 1.6-2.6 [facility] Urea nitrogen/Creatinine [Mass ratio] 14.8 mg/mg 10-20 [facility] Laboratory - Hematology and Cell countsOrdered By: Devon Dueñas on 06-29-2023 Erythrocyte distribution width (RBC) [Entitic vol] 42.6 fL 35.1-43.9 [facility] Erythrocyte distribution width (RBC) [Ratio] 12.6 % 11.6-14.6 [facility] Immature granulocytes/100 WBC (Bld) 0.400 % 0.0-0.9 [facility] Comment on above: IG% - Immature Granu locytes (promyelocytes, myelocytes and metamyelocytes) > 1% indicates that a LEFT SHIFT is Present. MCH (RBC) [Entitic mass] 29.3 pg 27.0-32.0 [facility] Nucleated RBC/100 WBC (Bld) [Ratio] 0 % 0-5 [facility] MCHC Auto (RBC) [Mass/Vol]Or dered By: Devon Dueñas on 06-29-2023 MCHC (RBC) [Mass/Vol] 31.9 g/dL 32-36 [facility] No Panel InformationOrdered By: Devon Dueñas on 06-29-2023 Estimated GFR (MDRD) Amer 72 mL/min >60 [facility] Comment on above: GFR Calc Estimated GFR (MDRD) Non-Af Amer 60 mL/min >60 [facility] Comment on above: Non- GFR Calc Platelets bldOrdered By: Marely Dueñas on 06-29-2023 Platelets (Bld) [#/Vol] 254 10*3/uL 150-450 [facility] Serum or plasma C reactive p rotein measurement (mass/volume)Ordered By: Devon Dueñas on 06-29-2023 CRP [Mass/Vol] mg/L 0.0-3.0 [facility] Comment on above: C-Reactive Protein ( CRP) provides useful information for thediagnosis, therapy and monitoring of inflammatory processesand associated diseases. For the evaluation of Relative Riskfor Cardiovascular Disease, a High Sensitivity CRP (HSCRP)should be ordered. Serum or plasma albumin pastor urement (mass/volume)Ordered By: Devon Dueñas on 06-29-2023 Albumin [Mass/Vol] 3.6 g/dL 3.2-5.0 [facility] Serum or plasma albumin/glob ulin mass ratioOrdered By: Devon Dueñas on 06-29-2023 Albumin/Globulin [Mass ratio] 0.8 {ratio} 0.9-2.4 [facility] Serum or plasma calcium pastor urement (mass/volume)Ordered By: Devon Dueñas on 06-29-2023 Calcium [Mass/Vol] 9.7 mg/dL 8.5-10.1 [facility] Serum or plasma creatinine m easurement (mass/volume)Ordered By: Devno Dueñas on 06-29-2023 Creatinine [Mass/Vol] 0.95 mg/dL 0.55-1.02 [facility] Comment on above: The validity of the calculated GFR & GFRAA in patients over 70 years has not been determined. Clinical correlation is essential. Serum or plasma urea nitroge n measurement (mass/volume)Ordered By: Devon Dueñas on 06-29-2023 Urea nitrogen [Mass/Vol] 14 mg/dL - [facility] Thin prep Papanicolaou smear with manual screeningOrdered By: Devon Dueñas on 06-29-2023 Thin prep Papanicolaou smear with manual screening 24 U/L [facility] Thin prep Papanicolaou smear with manual screening 6 5-15 [facility] CNOVon 04-27-2023 CNOV Office Visit (ORMDNA ) GLOVERRADHA Flor ([id number]) 1940 F Date Time Provider Department 04/27/23 [...] us at 1 year. All questions answered. Dhereaj Landa APRN.CNP Orthopaedic Surgery Allergies As of [...] for Encounter Date Provider Department Center 04/27/2023 [id number]-HZAYAHDHEERAJ LANDA [facility] Encounter Status:Closed by DHEERAJ LANDA on 04/27/[address] [facility] 04-05-2023 JOSE G Telephone (IVIS) RADHA GLOVER ([id number]) 1940 F Date Time Provider Department 04/05/23 [...] it gets worse. Please advise. Dheeraj Landa APRN.DEVELOPING MACHINE TENDER 04/06/2023 7:46 AM Signed Okay to stop the exercises I gave her. She should continue the knee flexion exercises and outpatient therapy. She should notify us if pain continues to worsen. Dheeraj Landa APRN.DEVELOPING MACHINE TENDER April 06, 2023 7:[address] [...] Fully Assessed Reason for Visit: Patient Question [9427] Patient Update [2854] Prescriptions as of 04/06/2023 - meloxicam (MOBIC) [...] Encounter Status:Closed by RODOLFO PLAZA on 04/06/23 [facility] CNOVon 03-30-2023 CNOV Office Visit (ORMDNA ) RADHA GLOVER ([id number]) 1940 F Date Time Provider Department 03/30/23 [...] for Encounter Date Provider Department Center 03/30/2023 [id number], STEPHEN [facility] Encounter Status:Closed by DHEERAJ LANDA on 03/30/23 Normal [facility] ANES POSTPROC EVALon 023 ANES POSTPROC EVAL HNO ID: [id number] Author: Batsheva Proctor MD Service: Anesthesiology Author Type: Anesthesiologist Type: Anesthesia Postprocedure Evaluation Filed: 03/22/2023 9:32 AM Note Text: POST ANESTHESIA EVALUATION NOTE : 1940 Procedure Summary Date: 03/22/23 Room / Location: [place] [address] / [place] Anesthesia Start: 721 Anesthesia Stop: 740 Procedure: MANIPULATION KNEE JOINT UNDER GENERAL ANES (Left: Knee) Diagnosis: Arthrofibrosis of total knee arthroplasty, initial encounter ([facility]) (Arthrofibrosis of total knee arthroplasty, initial encounter ([facility]) [T84.82XA]) Surgeons: Brennan Monsivais MD Responsible Provider: [...] March 22, 2023 TIME: 9:32 AM CSN: [id number] [facility] ANES PRE-OPon 03-22-2023 ANES PRE-OP HNO ID: [id number] Author: Batsheva Proctor MD Service: Anesthesiology Author Type: Anesthesiologist Type: Anesthesia Preprocedure Evaluation Filed: 03/22/2023 7:18 AM Note Text: ANESTHESIOLOGY DAY OF SURGERY NOTE : 1940 Procedure Information Date/Time: 03/22/23729 Procedure: MANIPULATION KNEE JOINT UNDER GENERAL ANES (Left: Knee) Location: [place] OR / [place] Surgeons: Brennan Monsivais MD Estimated body [...] and consent discussed: yes. Patient / Responsible Alliance Party agrees to proceed: yes Patient / [...] March 22, 2023 TIME: 6:53 AM CSN: [id number] [facility] BRIEF OP NOTon 03-22-2023 BRIEF OP NOT HNO ID: [id number] Author: Brennan Monsivais MD Service: Orthopaedic Surgery Author Type: Physician Type: Brief Op Note Filed: 03/22/2023 7:48 AM Note Text: BRIEF OPERATIVE / PROCEDURE NOTE LOG ID: [id number] SURGERY/PROCEDURE DATE: 03/22/2023 INCISION/PROCEDURE START TIME: 7:30 AM INCISION CLOSE/PROCEDURE END TIME: 7:33 AM SURGEON(S)/PROCEDURALIST(S) AND ATTIC FANS MECHANIC(S): Surgeon(s) and Role: * Brennan Monsivais MD - Primary * Compa Cortez DO - Resident - Assisting Nurse Practitioner: Dheeraj Landa APRN.CNP Physician Component Overhaul Operator: Monique Cesar PA-C SURGERY/PROCEDURE(S): FRANCISCO J L knee ANESTHESIA: General FINDINGS: arthrofibrosis ESTIMATED BLOOD LOSS: 0 mls SPECIMENS: None COMPLICATIONS: None POST-OP/POST-PROCEDURE DIAGNOSIS: Same as Preop SIGNATURE: Brennan Monsivais MD PATIENT NAME: Radha Glover DATE: March 22, 2023 TIME: 7:48 AM [facility] HISTORY PHYSICALon HISTORY PHYSICAL HNO ID: [id number] Author: Brennan Monsivais MD Service: Orthopaedic Surgery [...] immediately afterwards. Brennan Monsivais MD Orthopaedic Surgery [facility] OPERATIVE NOon 03-22-2023 OPERATIVE NO HNO ID: [id number] Author: Brennan Monsivais MD Service: Orthopaedic Surgery Author Type: Physician Type: Operative Report Filed: 03/23/2023 6:06 PM Note Text: Operative Report PATIENT NAME: Radha Glover CSN: [id number] LOG ID: [id number] Surgery Date: 03/22/2023 Surgeon(s) and Component Overhaul Operator(s): Dheeraj Landa CHAIN DYER - Promotional Representative Surgeon(s) and Role: * Brnenan Monsivais MD - Primary * Compa Cortez [...] Arthrofibrosis of total knee arthroplasty, initial encounter ([facility]) [T84.82XA] Postop Diagnosis: Same as Pre-Op Diagnosis Codes: * Arthrofibrosis of total knee arthroplasty, initial encounter ([facility]) [T84.82XA] Implants: * No implants in log [...] DATE: March 23, 2023 TIME: 6:05 PM [facility] 03-18-2023 [facility] Office Visit (IVIS ) RADHA GLOVER ([id number]) 1940 F Date Time Provider Department 03/18/23 [...] we will get this scheduled. Dheeraj Landa APRN.[facility] Orthopaedic Surgery Allergies As of Date: 03/18/2023 [...] days. Take (more content not included)... Normal [facility] Basophil percentageOrdered B y: Dr. Gonzalez on 02-26-2023 Chloride [Moles/Vol] 102 mmol/L 98-107 [facility] Cholesterol [Mass/Vol] 205 mg/dL <200 [facility] Comment on above: <200 mg/dL Desirable 200-240 mg/dL Borderline >240 mg/dL High Risk Glucose [Mass/Vol] 101 mg/dL 74-106 [facility] Comment on above: Fasting Glucose resu lt from 100 to 125 mg/dL suggests IMPAIRED HOMEOSTASIS per A.D.A. criteria. Potassium [Moles/Vol] 4.3 mmol/L 3.5-5.1 [facility] Sodium [Moles/Vol] 135 mmol/L 136-145 [facility] Triglyceride [Mass/Vol] 218 mg/dL <199 [facility] Comment on above: The drugs N-Acetylcy steine and Metamizole may falsely depress this assay.Serum Triglycerides Reference Interval Normal <150 mg/dL Borderline high 150 - 199 mg/dL High 200 - 499 mg/dL Very High > or = 500 mg/dL Laboratory - Chemistry and C hemistry - challengeOrdered By: Dr. Gonzalez on 02-26-2023 CO2 [Moles/Vol] 26.0 mmol/L 21.0-32.0 [facility] Urea nitrogen/Creatinine [Mass ratio] 22.2 mg/mg 10-20 [facility] No Panel InformationOrdered By: Dr. Gonzalez on 02-26-2023 Estimated GFR (MDRD) Amer 72 mL/min >60 [facility] Comment on above: GFR Calc Estimated GFR (MDRD) Non-Af Amer 60 mL/min >60 [facility] Comment on above: Non- GFR Calc Serum or plasma calcium pastor urement (mass/volume)Ordered By: Dr. Gonzalez on 02-26-2023 Calcium [Mass/Vol] 9.7 mg/dL 8.5-10.1 [facility] Serum or plasma cholesterol in HDL measurement (mass/volume)Ordered By: Dr. Gonzalez on 02-26-2023 Cholesterol in HDL [Mass/Vol] 54 mg/dL >40 [facility] Comment on above: The drugs N-Acetylcy steine and Metamizole may falsely depress this assay. Reference Range HDL <40 mg/dL Low HDL Cholesterol HDL >or= 60 mg/dL High HDL Cholesterol Serum or plasma cholesterol in VLDL measurement (mass/volume)Ordered By: Dr. Gonzalez on 02-26-2023 Cholesterol in VLDL [Mass/Vol] 44 mg/dL 5-40 [facility] Serum or plasma creatinine m easurement [...] Cholesterol in LDL [Mass/Vol] 107 mg/dL 0-130 [facility] Serum or plasma urea nitroge n measurement (mass/volume)Ordered By: Dr. Gonzalez on 02-26-2023 Urea nitrogen [Mass/Vol] 21 mg/dL 7-18 [facility] Thin prep Papanicolaou smear with manual screeningOrdered By: Dr. Gonzalez on 02-26-2023 Thin prep Papanicolaou smear with manual screening 7 5-15 [facility] CNOVon 02-18-2023 CNOV Office Visit (ORMDNA ) RADHA GLOVER ([id number]) 1940 F Date Time Provider Department 02/18/23 [...] APRN.CNP Orthopaedic Surgery Referring Provider: BRENNAN MONSIVAIS [[id number]] Allergies As of Date: 02/18/2023 Noted Allergy [...] CONSULT TO PHYSICAL THERAPY [9032] Order #: [id number]: 1 FUTURE Prescriptions as of 02/19/2023 - [...] Disp R (more content not included)... Normal [facility] XR Knee AP and Lateral and M juan jon 01-17-2023 IMPRESSION: Interval TKA Gum Puller: RHYS Transcribe Date/Time: Jan 17 2023 4:40P Dictated by : DAVIS RYDER MD This examination was interpreted and the report reviewed and electronically signed by: DAVIS RYDER MD on Jan 17 2023 4:41PM [facility] * * *Final Report* * [...] soft tissue emphysema. Right TKA is evident. [facility] Provider, Le velasco Hammett - 01/17/2023 * * *Final Report* * [...] TKA is evident. IMPRESSION IMPRESSION: Interval TKA Gum Puller: RHYS Transcribe Date/Time: Jan 17 2023 4:40P Dictated by : DAVIS RYDER MD This examination was interpreted and the report reviewed and electronically signed by: DAVIS RYDER MD on Jan 17 2023 4:41PM EST [facility] XR Knee AP and Lateral and M erchantsOrdered By: Ccf Provider on 01-17-2023 [facility] CNOVon 01-14-2023 CNOV Office Visit (IVIS ) RADHA GLOVER ([id number]) 1940 F Date Time Provider Department 01/14/23 [...] swelling, drainage, shortness of breath Dheeraj Landa APRN.[facility] Orthopaedic Surgery Allergies As of Date: 01/14/2023 [...] Status:Closed by DHEERAJ LANDA on 01/14/23 Normal [facility] XR KNEE 3V AP/LAT/MERCHANT L Ton 01-14-2023 [...] Right TKA is evident. IMPRESSION: Interval TKA Gum Puller: PSCPark Transcribe Date/Time: Jan 17 2023 4:40P Dictated by : DAVIS RYDER MD This examination was interpreted and the report reviewed and electronically signed by: DAVIS RYDER MD on Jan 17 2023 4:41PM EST [id number] [facility] XR Knee AP and Lateral and M erchantson 01-14-2023 Radiology Study observation (narrative) [facility] Florencio 01-12-2023 TORON Telephone (HCSIND) RADHA GLOVER ([id number]) 1940 F Date Time Provider Department 01/12/23 [...] by KAELYN BLAKE on 01/12/[address] [facility] 01-05-2023 CNPN Telephone (HCSIND) RADHA GLOVER ([id number]) 1940 F Date Time Provider Department 01/05/23 [...] Status:Closed by KAELYN BLAKE on 01/05/23 Normal [facility] Basic metabolic 2000 panelon 12-29-2022 Anion gap [Moles/Vol] 7 mmol/L Low -18 [facility] Comment on above: Order Comment: Speci men Type: BLOOD SPECIMENOrdering Facility: [facility] Address: [address] [place] [address] Performed By: #### 2 4321-2 ####[facility] LABORATORYCLIA [id number] [place] [address] [place] Calcium [Mass/Vol] 8.9 mg/dL Normal 8.5-10.2 [facility] Comment on above: Order Comment: Sharoni men Type: BLOOD SPECIMENOrdering Facility: [facility] Address: [address] [place] [address] Performed By: #### 2 4321-2 ####[facility] LABORATORYCLIA [id number] [place] [id number] [place] Chloride [Moles/Vol] 103 mmol/L Normal 97-105 [facility] Comment on above: Order Comment: Speci men Type: BLOOD SPECIMENOrdering Facility: [facility] Address: [address] [place] [address] Performed By: #### 2 4321-2 ####[facility] LABORATORYCLIA [id number] [place] [address] [place] CO2 [Moles/Vol] 28 mmol/L Normal 22-30 [facility] Comment on above: Order Comment: Yanely mendoza Type: BLOOD SPECIMENOrdering Facility: [facility] Address: [address] [facility] [facility] [place] [address] Performed By: #### 2 4321-2 ####[facility] LABORATORYCLIA [id number] [address] STATES OF [facility] Creatinine [Mass/Vol] 1.06 mg/dL High 0.58-0.96 [facility] Comment on above: Order Comment: Yanely men Type: BLOOD SPECIMENOrdering Facility: [facility] Address: [address] [place] [address] Performed By: #### 2 4321-2 ####[facility]ORATORYCLIA [id number] [address] OF [place] ESTIMATED GLOMERULAR FILTRATION RATE 52 mL/min/1.73m??? Low >=60 [facility] Comment on above: Order Comment: Yanely mendoza Type: BLOOD SPECIMENOrdering Facility: [facility] Address: [address] [place] [address] Result Comment: Eliana mated Glomerular Filtration Rate [...] actual GFR. Performed By: #### 2 4321-2 ####[facility]ORATORYCLIA [id number] [address] STATES OF [facility] Glucose [Mass/Vol] 128 mg/dL High 74-99 [facility] Comment on above: Order Comment: Yanely reji Type: BLOOD SPECIMENOrdering Facility: [facility] Address: [place] [address] Result Comment: The [place] Diabetes Association (ADA) provides guidance for cutoff [...] Standards of Medical Care in Diabetes 2016, [place] [employer]. Diabetes Care. 2016.39(Suppl 1). Performed By: #### 2 4321-2 ####[facility] LABORATORYCLIA [id number] [address] STATES OF [facility] Potassium [Moles/Vol] 4.3 mmol/L Normal 3.7-5.1 [facility] Comment on above: Order Comment: Yanely mendoza Type: BLOOD SPECIMENOrdering Facility: [facility] Address: [address] [place] [address] Performed By: #### 2 4321-2 ####[facility] LABORATORYCLIA [id number] [address] STATES OF [facility] Sodium [Moles/Vol] 138 mmol/L Normal 136-144 [facility] Comment on above: Order Comment: Yanely mendoza Type: BLOOD SPECIMENOrdering Facility: [facility] Address: [address] [place] [address] Performed By: #### 2 4321-2 ####[facility] LABORATORYCLIA [id number] [address] Urea nitrogen [Mass/Vol] 18 mg/dL Normal 7-21 [facility] Comment on above: Order Comment: Yanely mendoza Type: BLOOD SPECIMENOrdering Facility: [facility] Address: [address] [place] [address] Performed By: #### 2 4321-2 ####[facility] LABORATORYCLIA [id number] [address] OF [facility] CASE MANAGEMon 12-29-2022 CASE MANAGEM HNO ID: [id number] Author: Mayda Briscoe RN Service: ? Author Type: Registered Nurse Type: Care Mgt Progress Note Filed: 12/29/2022 12:08 PM Note Text: CARE MANAGEMENT DISCHARGE NOTE SERVICE DATE: December 29, 2022 SERVICE TIME: 12:07 PM Admission Date: 12/28/2022 LOS: 0 days Discharge Arrangement Discharge Arrangement: Home with Home Health Services Arranged Medical Services: Skilled Home Health Care Type: Physical Therapy Provider Name: [facility] Caregiver Assessment Caregiver is ready, willing and able to meet the patient's needs as recommended by the inter-professional team: Yes Name of Caregiver: Daughter Transportation Arrangements Transportation Arrangements: Car- Daughter to transport Handoff Communication: Handoff to: Primary Care Physician Primary Care Physician Name/Phone: Dr.Paul Gonzalez- [phone] Additional Information: Discharge order written for today. [facility] will be seeing the patient for Home PT with a start of care within 24-48 hours. Notified [facility] of the patients discharge home today. Discharge Information Row Name Admission (Current) from 12/28/[address] Care Agency [facility] Start of Care -- Within 24-48 hours SIGNATURE: Mayda Briscoe RN PATIENT NAME: Radha Glover DATE: December 29, 2022 TIME: 12:07 PM CONTACT #: [phone] [facility] CASE MGT INIT Juan Daniel 2022 CASE MGT INIT [facility] HNO ID: [id number] Author: Mayda Briscoe RN Service: ? Author [...] OT/PT Advance Directives Current Advance Directive: None School Psychometrist Attempted to Assist with AD Completion: Yes [...] Cane Discharge Planning Patient Goal(s): Better mobility [place] Explained: [place] Given: Yes Level of Care [...] PT recommendations with the patient. Referral to [facility] and they are able to accept. CM department will continue to follow for DC needs. SIGNATURE: Mayda Briscoe RN PATIENT NAME: Radha Glover DATE: December 29, 2022 TIME: 10:31 AM CONTACT #: [phone] Normal [facility] CBC panel Auto (Bld)on 12-29 Erythrocyte distribution width (RBC) [Ratio] 12.3 % Normal 11.5-15.0 [facility] Comment on above: Order Comment: Yanely mendoza Type: BLOOD SPECIMENOrdering Facility: [facility] Address: [address] [place] [address] Performed By: #### 5 8410-2 ####[facility]ORATORYCLIA [id number] [address] [place] Hematocrit (Bld) [Volume fraction] 32.6 % Low 36.0-46.0 [facility] Comment on above: Order Comment: Yanely mendoza Type: BLOOD SPECIMENOrdering Facility: [facility] Address: [address] [place] [address] Performed By: #### 5 8410-2 ####[facility] LABORATORYCLIA [id number] [place] [address] [place] Hemoglobin (Bld) [Mass/Vol] 10.8 g/dL Low 11.5-15.5 [facility] Comment on above: Order Comment: Yanely mendoza Type: BLOOD SPECIMENOrdering Facility: [facility] Address: [address] [place] [address] Performed By: #### 5 8410-2 ####[facility] LABORATORYCLIA [id number] [address] MCH (RBC) [Entitic mass] 30.5 pg Normal 26.0-34.0 [facility] Comment on above: Order Comment: Speci men Type: BLOOD SPECIMENOrdering Facility: [facility] Address: [address] [place] [address] Performed By: #### 5 8410-2 ####[facility] LABORATORYCLIA [id number] [address] MCHC (RBC) [Mass/Vol] 33.1 g/dL Normal 30.5-36.0 [facility] Comment on above: Order Comment: Speci men Type: BLOOD SPECIMENOrdering Facility: [facility] Address: [address] [place] [address] Performed By: #### 5 8410-2 ####[facility] LABORATORYCLIA [id number] [address] MCV (RBC) [Entitic vol] 92.1 fL Normal 80.0-100.0 [facility] Comment on above: Order Comment: Speci men Type: BLOOD SPECIMENOrdering Facility: [facility] Address: [address] [place] [address] Performed By: #### 5 8410-2 ####[facility] LABORATORYCLIA [id number] [address] Nucleated RBC (Bld) [#/Vol] 10*3/uL Normal <0.01 [facility] [facility] [place] Comment on above: Order Comment: Speci men Type: BLOOD SPECIMENOrdering Facility: [facility] Address: [address] [place] [address] Performed By: #### 5 8410-2 ####[facility] LABORATORYCLIA [id number] [address] Platelet mean volume (Bld) [Entitic vol] 10.7 fL Normal 9.0-12.7 [facility] [place] Comment on above: Order Comment: Speci men Type: BLOOD SPECIMENOrdering Facility: [facility] Address: [address] [place] [address] Performed By: #### 5 8410-2 ####[facility] LABORATORYCLIA [id number] [address] Platelets (Bld) [#/Vol] 216 10*3/uL Normal 150-400 [facility] [place] Comment on above: Order Comment: Speci men Type: BLOOD SPECIMENOrdering Facility: [facility] Address: [address] [place] [address] Performed By: #### 5 8410-2 ####[facility] LABORATORYCLIA [id number] [place] [address] [place] RBC (Bld) [#/Vol] 3.54 10*6/uL Low 3.90-5.20 [facility] Comment on above: Order Comment: Speci men Type: BLOOD SPECIMENOrdering Facility: [facility] Address: [address] [place] [address] Performed By: #### 5 8410-2 ####[facility] LABORATORYCLIA [id number] [address] WBC (Bld) [#/Vol] 10.86 10*3/uL Normal 3.70-11.00 [facility] Comment on above: Order Comment: Speci men Type: BLOOD SPECIMENOrdering Facility: [facility] Address: [address] [place] [address] Performed By: #### 5 8410-2 ####[facility] LABORATORYCLIA [id number] [address] [place] CNCOon 12-29-2022 CNCO Letter Text Normal [facility] CNPNon 12-29-2022 TORON Telephone (HCSIND) GLOVERRADHA CAPPS ([id number]) 1940 F Date Time Provider Department 12/29/22 [...] checking your blood pressure) ? No. d. [facility] will be providing [...] maintain a safe environment for our caregivers, [facility] requires any animals or weapons present in the home be located in a secured location. Our clinicians will call you the night before or the morning of the appointment. Their # may come up restricted but they'll leave a VM for you. In case you have any questions or concerns in the meantime, our # is [phone], option [phone] Thank you for your time [...] Encounter Nu (more content not included)... Normal [facility] THERAPY NTon 12-29-2022 THERAPY NT HNO ID: [id number] Author: Lela Day PTA Service: Physical Therapy Author Type: Assayer Type: Therapy (PT/OT/Speech/Resp) Filed: 12/29/2022 1:25 PM Note Text: Attestation signed by Rima Hastings PT at 12/29/2022 4:58 PM I reviewed and agree with the documentation corresponding to this therapy visit. SIGNATURE: Rima Hastings PT DATE: December 29, 2022 TIME: 4:58 PM Physical Therapy Treatment SERVICE DATE: 12/29/2022 SERVICE TIME: 1245 to 1313 ROOM: [id number] Recommended Discharge Disposition: Home PT Recommended Discharge [...] may require occasi (more content not included)... [facility] THERAPY NT HNO ID: [id number] Author: Aris Montague OT/L Service: ? Author Type: Occupational Therapist Type: Therapy (PT/OT/Speech/Resp) Filed: 12/29/2022 11:25 AM Note Text: Occupational Therapy Evaluation SERVICE DATE: 12/29/2022 SERVICE TIME: 1020 to 1116 ROOM: [id number] Recommended Discharge Disposition: Home OT Anticipated Discharge [...] flat bed, educated on use of leg scale assembly set up worker Scooting Sit to Stand Contact Guard Assistance [...] postural sway (more content not included)... Normal [facility] THERAPY NT HNO ID: [id number] Author: Rima Hastings PT Service: Physical Therapy Author Type: Physical Therapist Type: Therapy (PT/OT/Speech/Resp) Filed: 12/29/2022 10:44 AM Note Text: Physical Therapy Evaluation SERVICE DATE: 12/29/2022 SERVICE TIME: 839 to 954 ROOM: [id number] Recommended Discharge Disposition: Home PT Recommended Discharge [...] functional mobility simulating home needs. Patient is [place]OP[place] however able to confirm understanding of education [...] recommendation for ingrid (more content not included)... [facility] ANES POSTPROC EVALon 023 ANES POSTPROC EVAL HNO ID: [id number] Author: Jhonny Peck MD Service: Anesthesiology Author Type: Anesthesiologist Type: Anesthesia Postprocedure Evaluation Filed: 12/28/2022 3:19 PM Note Text: POST ANESTHESIA EVALUATION NOTE : 1940 Procedure Summary Date: 12/28/22 Room / Location: SD OR / SD OR Anesthesia Start: 1055 Anesthesia Stop: 1350 [...] December 28, 2022 TIME: 3:19 PM CSN: [id number] [facility] ANES PRE-OPon 12-28-2022 ANES PRE-OP HNO ID: [id number] Author: Batsheva Proctor MD Service: Anesthesiology Author Type: Anesthesiologist Type: Anesthesia Preprocedure Evaluation Filed: 12/28/2022 10:55 AM Note Text: ANESTHESIOLOGY DAY OF SURGERY NOTE : 1940 Procedure Information Date/Time: 12/28/22 1155 Procedure: ARTHROPLASTY REPLACE JOINT TOTAL KNEE (Left: Knee) Location: [place] [address] / [place] Surgeons: Brennan Monsivais MD Estimated body [...] and consent discussed: yes. Patient / Responsible Alliance Party agrees to proceed: yes Patient / [...] December 28, 2022 TIME: 9:52 AM CSN: [id number] [facility] [id number] Author: Stephen Hughes PA-C Service: Orthopaedic Surgery Author Type: Physician Component Overhaul Operator Type: Discharge Summary Filed: 12/29/2022 10:00 AM [...] These instructions explain what you or your animal care taker need to do to continue your care at home or at another healthcare facility Please go over these instructions with your nurse and animal care taker. If you are not sure about something, [...] Normal [facility] CONSULTon 12-28-2022 CONSULT HNO ID: [id number] Author: González Younger MD Service: General Internal Medicine Author Type: Physician Type: Consults Filed: 12/29/2022 8:06 PM Note Text: [facility]- Consultation RADHA GLOVER : 1940 AGE: 82 SEX: F ACCTNUM: [id number] HOSP SVC: ORTS LOCATION: [address] ATTENDING PHYSICIAN: BRENNAN MONSIVAIS DATE OF SERVICE: [...] and daughter. González Younger M.D. Internal Medicine SKJ:[id number] [facility] NURSING PROGon 12-28-2022 NURSING PROG HNO ID: [id number] Author: Anastasiia Coreas, COSTA Service: ? Author [...] block done preop by dr proctor and [facility] skin prep done by dr proctor 1032 block completed 1036 informed consent signed for left knee replacement [facility] OPERATIVE NOon 12-28-2022 OPERATIVE NO HNO ID: [id number] Author: Brennan Monsivais MD Service: Orthopaedic Surgery Author Type: Physician Type: Operative Report Filed: 12/28/2022 1:19 PM Note Text: Operative Report PATIENT NAME: Radha Glover CSN: [id number] LOG ID: [id number] Surgery Date: 12/28/2022 Surgeon(s) and Component Overhaul Operator(s): Dheeraj Landa CHAIN DYER - Promotional Representative Surgeon(s) and Role: * Brennan Monsivais MD [...] performed all critical portions of the case. server service assistant was necessary for safe patient positioning, [...] Normal [facility] ECHOon 12-22-2022 Echocardiography Echocardiography Rep ort: Transthoracic Echo On License Of [facility] Date of service: 12/22/2022 9:42:43 AM DEVELOPMENT SPECIALIST Ordering physician: KRISTINE MASON Indication: Pre op clearance Technologist: Brenda Elias [facility] Interpreting physician: Anderson Luis DO PATIENT: [...] * * Final * * * [employer] Medical Image : [id number] Normal [facility] CBC W Auto Differential pane l (Bld)on 12-11-2022 Basophils (Bld) [#/Vol] 10*3/uL Normal <0.11 [facility] Comment on above: Order Comment: Speci men Type: BLOOD SPECIMENOrdering Facility: [facility] Address: [address] [place] [address] Performed By: #### 5 7021-8 ####[facility] CENTERA [id number] [place] [address] [place] Basophils/100 WBC (Bld) 0.4 % Normal [facility] Comment on above: Order Comment: Speci men Type: BLOOD SPECIMENOrdering Facility: [facility] Address: [address] [place] [address] Performed By: #### 5 7021-8 ####[facility] MEDICAL CENTERLIA [id number] [place] [address] [place] Differential cell count method Nom (Bld) Auto Normal [facility] Comment on above: Order Comment: Speci men Type: BLOOD SPECIMENOrdering Facility: [facility] Address: [address] [place] [address] Performed By: #### 5 7021-8 ####[facility]ITALNCACAD[facility]ALTH[facility] [id number] [place] [address] [place] Eosinophils (Bld) [#/Vol] 0.16 10*3/uL Normal <0.46 [facility] Comment on above: Order Comment: Speci men Type: BLOOD SPECIMENOrdering Facility: [facility] Address: [address] [place] [address] Performed By: #### 5 7021-8 ####[facility] [id number] [place] [address] [place] Eosinophils/100 WBC (Bld) 2.9 % Normal [facility] Comment on above: Order Comment: Speci men Type: BLOOD SPECIMENOrdering Facility: [facility] Address: [address] [place] [address] Performed By: #### 5 7021-8 ####[facility] [id number] [place] [address] [place] Erythrocyte distribution width (RBC) [Ratio] 12.6 % Normal 11.5-15.0 [facility] Comment on above: Order Comment: Speci men Type: BLOOD SPECIMENOrdering Facility: [facility] Address: [address] [place] [address] Performed By: #### 5 7021-8 ####[facility] [id number] [place] [address] [place] Hematocrit (Bld) [Volume fraction] 39.0 % Normal 36.0-46.0 [facility] Comment on above: Order Comment: Speci men Type: BLOOD SPECIMENOrdering Facility: [facility] Address: [address] [place] [address] Performed By: #### 5 7021-8 ####[facility] KARENGloNCVARUN [id number] [place] [address] [place] Hemoglobin (Bld) [Mass/Vol] 12.9 g/dL Normal 11.5-15.5 [facility] Comment on above: Order Comment: Speci men Type: BLOOD SPECIMENOrdering Facility: [facility] Address: [address] [place] [address] Performed By: #### 5 7021-8 ####[facility]ITAL[facility] [id number] [place] [address] [place] Immature granulocytes (Bld) [#/Vol] 10*3/uL Normal <0.10 [facility] Comment on above: Order Comment: Speci men Type: BLOOD SPECIMENOrdering Facility: [facility] Address: [address] [place] [address] Performed By: #### 5 7021-8 ####[facility] HOSPITALNCLIA [id number] [place] [address] [place] Immature granulocytes/100 WBC (Bld) 0.2 % Normal [facility] Comment on above: Order Comment: Speci men Type: BLOOD SPECIMENOrdering Facility: [facility] Address: [address] [place], [place] [address] Performed By: #### 5 7021-8 ####[facility] HOSPITALNCLIA [id number] [place] [address] [place] Lymphocytes (Bld) [#/Vol] 1.84 10*3/uL Normal 1.00-4.00 [facility] Comment on above: Order Comment: Speci men Type: BLOOD SPECIMENOrdering Facility: [facility] Address: [address] [place], [place] [address] Performed By: #### 5 7021-8 ####[facility] KARENWROXANELIA [id number] [place] [address] [place] Lymphocytes/100 WBC (Bld) 33.5 % Normal [facility] Comment on above: Order Comment: Speci men Type: BLOOD SPECIMENOrdering Facility: [facility] Address: [address] [place] [address] Performed By: #### 5 7021-8 ####[facility] HOSPITALMIRTHAA [id number] [place] [address] [place] MCH (RBC) [Entitic mass] 30.6 pg Normal 26.0-34.0 [facility] Comment on above: Order Comment: Speci men Type: BLOOD SPECIMENOrdering Facility: [facility] Address: [address] [place] [address] Performed By: #### 5 7021-8 ####[facility] HOSPITALGAMALIEL [id number] [place] [address] [place] MCHC (RBC) [Mass/Vol] 33.1 g/dL Normal 30.5-36.0 [facility] Comment on above: Order Comment: Speci men Type: BLOOD SPECIMENOrdering Facility: [facility] Address: [address] [place] [address] Performed By: #### 5 7021-8 ####[facility] HOSPITALGAMALIEL [id number] [place] [address] [place] MCV (RBC) [Entitic vol] 92.6 fL Normal 80.0-100.0 [facility] Comment on above: Order Comment: Speci men Type: BLOOD SPECIMENOrdering Facility: [facility] Address: [address] [place] [address] Performed By: #### 5 7021-8 ####[facility] HOSPITALNCLIA [id number] [place] [address] [place] Monocytes (Bld) [#/Vol] 0.49 10*3/uL Normal <0.87 [facility] Comment on above: Order Comment: Speci men Type: BLOOD SPECIMENOrdering Facility: [facility] Address: [address] [place] [address] Performed By: #### 5 7021-8 ####[facility] HOSPITALNCLIA [id number] [place] [address] [place] Monocytes/100 WBC (Bld) 8.9 % Normal [facility] Comment on above: Order Comment: Speci men Type: BLOOD SPECIMENOrdering Facility: [facility] Address: [address] [place] [address] Performed By: #### 5 7021-8 ####[facility] HOSPITALNCLIA [id number] [place] [address] [place] Neutrophils (Bld) [#/Vol] 2.98 10*3/uL Normal 1.45-7.50 [facility] Comment on above: Order Comment: Speci men Type: BLOOD SPECIMENOrdering Facility: [facility] Address: [address] [place] [address] Performed By: #### 5 7021-8 ####[facility]ENTERA [id number] [place] [address] [place] Neutrophils/100 WBC (Bld) 54.1 % Normal [facility] Comment on above: Order Comment: Speci men Type: BLOOD SPECIMENOrdering Facility: [facility] Address: [address] [place] [address] Performed By: #### 5 7021-8 ####[facility] HOSPITALNCLIA [id number] [place] [address] [place] Nucleated RBC (Bld) [#/Vol] 10*3/uL Normal <0.01 [facility] Comment on above: Order Comment: Speci men Type: BLOOD SPECIMENOrdering Facility: [facility] Address: [address] [place] [address] Performed By: #### 5 7021-8 ####[facility] KARENGloNCVARUN [id number] [place] [address] [place] Nucleated RBC/100 WBC (Bld) [Ratio] 0.0 /100 WBC Normal [facility] Comment on above: Order Comment: Speci men Type: BLOOD SPECIMENOrdering Facility: [facility] Address: [address] [place] [address] Performed By: #### 5 7021-8 ####[facility] HOSPITALNCLIA [id number] [place] [address] [place] Platelet mean volume (Bld) [Entitic vol] 10.2 fL Normal 9.0-12.7 [facility] Comment on above: Order Comment: Speci men Type: BLOOD SPECIMENOrdering Facility: [facility] Address: [address] [place] [address] Performed By: #### 5 7021-8 ####[facility] HOSPITALNCLIA [id number] [place] [address] [place] Platelets (Bld) [#/Vol] 252 10*3/uL Normal 150-400 [facility] Comment on above: Order Comment: Speci men Type: BLOOD SPECIMENOrdering Facility: [facility] Address: [address] [place] [address] Performed By: #### 5 7021-8 ####[facility] HOSPITALNCLIA [id number] [place] [address] [place] RBC (Bld) [#/Vol] 4.21 10*6/uL Normal 3.90-5.20 [facility] Comment on above: Order Comment: Speci men Type: BLOOD SPECIMENOrdering Facility: [facility] Address: [address] [place] [address] Performed By: #### 5 7021-8 ####[facility] HOSPITALWNCLIA [id number] [address] [place] WBC (Bld) [#/Vol] 5.50 10*3/uL Normal 3.70-11.00 [facility] Comment on above: Order Comment: Speci men Type: BLOOD SPECIMENOrdering Facility: [facility] Address: [address] [place] [id number] Performed By: #### 5 7021-8 ####[facility] HOSPITALNCLIA [id number] [address] [place] Basophils (Bld) [#/Vol] <0.11 k/uL [facility] Basophils/100 WBC (Bld) 0.4 % [facility] Differential cell count method Nom (Bld) Auto [facility] Eosinophils (Bld) [#/Vol] 0.16 10*3/uL <0.46 k/uL [facility] Eosinophils/100 WBC (Bld) 2.9 % [facility] Erythrocyte distribution width (RBC) [Ratio] 12.6 % 11.5 - 15.0 % [facility] Hematocrit (Bld) [Volume fraction] 39.0 % 36.0 - 46.0 % [facility] Hemoglobin (Bld) [Mass/Vol] 12.9 g/dL 11.5 - 15.5 g/dL [facility] Immature granulocytes (Bld) [#/Vol] <0.10 k/uL [facility] Immature granulocytes/100 WBC (Bld) 0.2 % [facility] Lymphocytes (Bld) [#/Vol] 1.84 10*3/uL 1.00 - 4.00 k/uL [facility] Lymphocytes/100 WBC (Bld) 33.5 % [facility] MCH (RBC) [Entitic mass] 30.6 pg 26.0 - 34.0 pg [facility] MCHC (RBC) [Mass/Vol] 33.1 g/dL 30.5 - 36.0 g/dL [facility] MCV (RBC) [Entitic vol] 92.6 fL 80.0 - 100.0 fL [facility] Monocytes (Bld) [#/Vol] 0.49 10*3/uL <0.87 k/uL [facility] Monocytes/100 WBC (Bld) 8.9 % [facility] Neutrophils (Bld) [#/Vol] 2.98 10*3/uL 1.45 - 7.50 k/uL [facility] Neutrophils/100 WBC (Bld) 54.1 % [facility] Nucleated RBC (Bld) [#/Vol] <0.01 k/uL [facility] Nucleated RBC/100 WBC (Bld) [Ratio] 0.0 /100 WBC [facility] Platelet mean volume (Bld) [Entitic vol] 10.2 fL 9.0 - 12.7 fL [facility] Platelets (Bld) [#/Vol] 252 10*3/uL 150 - 400 k/uL [facility] RBC (Bld) [#/Vol] 4.21 10*6/uL 3.90 - 5.2 0 m/uL [facility] WBC (Bld) [#/Vol] 5.50 10*3/uL 3.70 - 11. 00 k/uL [facility] Comprehensive metabolic 2000 panelon 12-11-2022 Albumin [Mass/Vol] 4.2 g/dL Normal 3.9-4.9 [facility] Comment on above: Order Comment: Speci men Type: BLOOD SPECIMENOrdering Facility: [facility] Address: [address] [address] Performed By: #### 2 4323-8 ####[facility] [id number] [address] OF [facility] ALP [Catalytic activity/Vol] 115 U/L Normal 34-123 [facility] Comment on above: Order Comment: Speci men Type: BLOOD SPECIMENOrdering Facility: [facility] Address: [address] [address] Performed By: #### 2 4323-8 ####[facility] [id number] [address] OF [facility] ALT [Catalytic activity/Vol] 12 U/L Normal 7-38 [facility] Comment on above: Order Comment: Speci men Type: BLOOD SPECIMENOrdering Facility: [facility] Address: [address] [place] [address] Performed By: #### 2 4323-8 ####[facility] HOSPITALWNCLIA [id number] [place] [address] [place] Anion gap [Moles/Vol] 7 mmol/L Low 9-18 [facility] Comment on above: Order Comment: Speci men Type: BLOOD SPECIMENOrdering Facility: [facility] Address: [address] [place] [address] Performed By: #### 2 4323-8 ####[facility]ITALNCLIA [id number] [place] [address] [place] AST [Catalytic activity/Vol] 18 U/L Normal 13-35 [facility] Comment on above: Order Comment: Speci men Type: BLOOD SPECIMENOrdering Facility: [facility] Address: [address] [place] [address] Performed By: #### 2 4323-8 ####[facility]ENTERA [id number] [place] [address] [place] Bilirubin [Mass/Vol] 0.2 mg/dL Normal 0.2-1.3 [facility] Comment on above: Order Comment: Speci men Type: BLOOD SPECIMENOrdering Facility: [facility] Address: [address] [place] [address] Performed By: #### 2 4323-8 ####[facility]ITALNCLIA [id number] [place] [address] [place] Calcium [Mass/Vol] 9.6 mg/dL Normal 8.5-10.2 [facility] Comment on above: Order Comment: Speci men Type: BLOOD SPECIMENOrdering Facility: [facility] Address: [address] [address] Performed By: #### 2 4323-8 ####[facility] HOSPITALWNCLIA [id number] [place] [address] [place] Chloride [Moles/Vol] 103 mmol/L Normal 97-105 [facility] Comment on above: Order Comment: Speci men Type: BLOOD SPECIMENOrdering Facility: [facility] Address: [address] [place] [address] Performed By: #### 2 4323-8 ####[facility]ITALNCLIA [id number] [place] [address] [place] CO2 [Moles/Vol] 28 mmol/L Normal 22-30 [facility] Comment on above: Order Comment: Speci men Type: BLOOD SPECIMENOrdering Facility: [facility] Address: [address] [place] [address] Performed By: #### 2 4323-8 ####[facility] CENTERLIA [id number] [place] [address] [place] Creatinine [Mass/Vol] 1.15 mg/dL High 0.58-0.96 [facility] Comment on above: Order Comment: Speci men Type: BLOOD SPECIMENOrdering Facility: [facility] Address: [address] [place] [address] Performed By: #### 2 4323-8 ####[facility] CENTERLIA [id number] [place] [address] [place] ESTIMATED GLOMERULAR FILTRATION RATE 47 mL/min/1.73m??? Low >=60 [facility] Comment on above: Order Comment: Speci men Type: BLOOD SPECIMENOrdering Facility: [facility] Address: [address] [place] [address] Result Comment: Eliana mated Glomerular Filtration Rate [...] actual GFR. Performed By: #### 2 4323-8 ####[facility] HOSPITALWNCLIA [id number] [place] [address] [place] Glucose [Mass/Vol] 115 mg/dL High 74-99 [facility] Comment on above: Order Comment: Yanely mendoza Type: BLOOD SPECIMENOrdering Facility: [facility] Address: [address] [place] [phone] Result Comment: The [place] [employer] (ADA) provides guidance for cutoff [...] Standards of Medical Care in Diabetes 2016, [place] [employer]. Diabetes Care. 2016.39(Suppl 1). Performed By: #### 2 4323-8 ####[facility] [id number] [place] [address] [place] Potassium [Moles/Vol] 4.4 mmol/L Normal 3.7-5.1 [facility] Comment on above: Order Comment: Yanely mendoza Type: BLOOD SPECIMENOrdering Facility: [facility] Address: [place] [address] Performed By: #### 2 4323-8 ####[facility]CLIA [id number] [place] [address] [place] Protein [Mass/Vol] 6.9 g/dL Normal 6.3-8.0 [facility] Comment on above: Order Comment: Speci men Type: BLOOD SPECIMENOrdering Facility: [facility] Address: [place] [address] Performed By: #### 2 4323-8 ####[facility] [id number] [place] [address] [place] Sodium [Moles/Vol] 138 mmol/L Normal 136-144 [facility] Comment on above: Order Comment: Speci men Type: BLOOD SPECIMENOrdering Facility: [facility] Address: [place] [address] Performed By: #### 2 4323-8 ####[facility] [id number] [place] [address] [place] Urea nitrogen [Mass/Vol] 23 mg/dL High 7-21 [facility] Comment on above: Order Comment: Speci men Type: BLOOD SPECIMENOrdering Facility: [facility] Address: [place] [address] Performed By: #### 2 4323-8 ####[facility] [id number] [place] [address] [place] Albumin [Mass/Vol] 4.2 g/dL 3.9 - 4.9 g/dL [facility] ALP [Catalytic activity/Vol] 115 U/L 34 - 123 U/L [facility] ALT [Catalytic activity/Vol] 12 U/L 7 - 38 U/L [facility] Anion gap [Moles/Vol] 7 mmol/L Low 9 - 18 mmol/L [facility] AST [Catalytic activity/Vol] 18 U/L 13 - 35 U/L [facility] Bilirubin [Mass/Vol] 0.2 mg/dL 0.2 - 1 .3 mg/dL [facility] Calcium [Mass/Vol] 9.6 mg/dL 8.5 - 10. 2 mg/dL [facility] Chloride [Moles/Vol] 103 mmol/L 97 - 10 5 mmol/L [facility] CO2 [Moles/Vol] 28 mmol/L 22 - 30 mmol/L [facility] Creatinine [Mass/Vol] 1.15 mg/dL High 0.58 - 0.96 mg/dL [facility] Estimated Glomerular Filtration Rate 47 mL/min/1.73m Low >=60 mL/min/1.73m [facility] Glucose [Mass/Vol] 115 mg/dL High 74 - 99 mg/dL [facility] Potassium [Moles/Vol] 4.4 mmol/L 3.7 - 5.1 mmol/L [facility] Protein [Mass/Vol] 6.9 g/dL 6.3 - 8.0 g/dL [facility] Sodium [Moles/Vol] 138 mmol/L 136 - 144 mmol/L [facility] Urea nitrogen [Mass/Vol] 23 mg/dL High 7 - 21 mg/dL [facility] [id number] 12-11-2022 ECG01 Ventricular Rate : 6 9 BPM Atrial Rate : 69 BPM P-R Interval : 130 ms QRS Duration : 82 ms Q-T Interval : 398 ms QTC Calculation(Bazett) : 426 ms Calculated P Hingham : -2 degrees Calculated R Hingham : 26 degrees Calculated T Hingham : 63 degrees NORMAL SINUS RHYTHM NORMAL ECG Confirmed by NUBIA HOWELL DO ([id number]) on 04/05/2023 4:07:42 PM NAME : RADHA GLOVER PID : [id number] : 1940 Gender : Female Race : ORD : Procedure Date : Dec 11 2022 15:10:17 Edit Date : Apr 05 2023 16:07:44 Diagnosis: NORMAL SINUS RHYTHM NORMAL ECG Confirmed by NUBIA HOWELL DO ([id number]) on 04/05/2023 4:07:42 PM Test Reason : Location : 636 : [facility] Overread By : NUBIA HOWELL DO Edited By : NUBIA HOWELL DO Referred By : , Acquired by : Sukhdeep rivas [facility] ECG01 Ventricular Rate : 6 9 BPM Atrial Rate : 69 BPM P-R Interval : 130 ms QRS Duration : 82 ms Q-T Interval : 398 ms QTC Calculation(Bazett) : 426 ms Calculated P [place] : -2 degrees Calculated R [place]ingham : 26 degrees Calculated T Hingham : 63 degrees NORMAL SINUS RHYTHM NORMAL ECG Confirmed by NUBIA HOWELL DO ([id number]) on 12/16/2022 4:18:14 PM NAME : RADHA GLOVER PID : [id number] : 1940 Gender : Female Race : ORD : Procedure Date : Dec 11 2022 15:10:17 Edit Date : Dec 16 2022 16:18:18 Diagnosis: NORMAL SINUS RHYTHM NORMAL ECG Confirmed by NUBIA HOWELL DO ([id number]) on 12/16/2022 4:18:14 PM Test Reason : Location : 636 : [facility] Overread By : NUBIA HOWELL DO Edited By : NUBIA HOWELL DO Referred By : BRENNAN MONSIVAIS Acquired by : Sukhdeep rivas [facility] HISTORY PHYSICALon HISTORY PHYSICAL HNO ID: [id number] Author: Kristine Mason APRN.DEVELOPING MACHINE TENDER Service: ? Author Type: Nurse Practitioner Type: [...] fevers. Neurological: No history of TIA's, stroke, ASSOCIATE SCIENTIST tumor, impaired sensorium, hemiplegia, paraplegia or quadraplegia. No neurological symptoms or problems. Respiratory: No history of current cough or dyspnea, or pneumonia in the past 6 weeks. No history of respiratory/pulmonary symptoms or problems. Cardiovascular: Positive for: hypertension (on rx) Negative for: anticoagulation therapy, arrhythmia, atrial fibrillation, CAD, chest pain, CHF, congenital heart defect, DVT/PE, hyperlipidemia, recent FL, murmur/valvular heart disease, open heart surgery and valve surgery. GI: Positive for: GERD (otc rx as needed) Negative for: abdominal pain, dysphagia, hepatitis, irritable bowel syndrome, inflammatory bowel disease, liver disease, nausea, pancreatitis, vomiting and ETOH >2 drinks/day. : No history of dysuria, frequency or incontinence, stones or chronic kidney disease. No difficulty urinating, nocturia > 1 time per night or hematuria. DIRECTOR CARDIOLOGY: Negative for abnormal vaginal bleeding, abnormal vaginal discharge. Endocrine: No history of diabetes. Has not taken steroids within the past 30 days. No history of endocrinological symptoms or problems. Hematology: Positive for: chronic anti-coagulation/platelet meds. Patient is on anti-coagulation/platelet medication(s): Aspirin. Negative for: anemia, brui (more content not included)... Normal [facility] TYPE AND SCREEN,30 DAYon ABO O Normal [facility] Comment on above: Order Comment: Speci men Type: BLOOD SPECIMENOrdering Facility: [facility] Address: [address] [place] [address] Performed By: #### T SCR30 ####[facility] MAIN BLOOD BANKCLIA [id number] [address] [place] HISTORICAL AB SCR STATUS Negative Normal [facility] Comment on above: Order Comment: Speci men Type: BLOOD SPECIMENOrdering Facility: [facility] Address: [address] [place] [address] Performed By: #### T SCR30 ####CC MAIN BLOOD BANKCLIA [id number] [address] [place] Rh Nom (Bld) Positive Normal [facility] Comment on above: Order Comment: Speci men Type: BLOOD SPECIMENOrdering Facility: [facility] Address: [address] [place] [address] [place] [address] Performed By: #### T SCR30 ####[facility] BLOOD BANKUNIVERS[facility] [id number] [facility] [id number] V[place] [id number] [facility] Florencio 12-08-2022 CNPN Telephone (SD2E) RADHA GLOVER ([id number]) 1940 F Date Time Provider Department 12/08/22 BRENNAN MONSIVAIS During your visit today, we recorded the following information about you: KAILEE Landry 12/16/2022 11:50 AM Signed TOTAL JOINT COMPLETE CARE PROGRAM PRE-OPERATIVE TEACHING Service D/ate: 12/16/2022 Service Time: 11:33 AM Date of : 1940 Gender: female Date of Surgery: 12/28/22 Procedure: Left Total Knee Replacement Complete Care Program was discussed with the patient: Esthetician/Skin Therapist Identification: Patient identified a animal care taker to help when discharged to home: lives [...] Encounter Status:Closed by ARLIN JEAN-BAPTISTE on 12/16/22 [facility] Absolute lymphocyte countOrd ered By: Dr. Gonzalez on 11-16-2022 Lymphocytes Auto (Unsp spec) [#/Vol] 1.31 10*3/uL 0.83-4.51 [facility] Basophil percentageOrdered B y: Dr. Gonzalez on 11-16-2022 Basophils/100 WBC (Bld) 0.2 % 0-1 [facility] Chloride [Moles/Vol] 103 mmol/L 98-107 [facility] Cholesterol [Mass/Vol] 257 mg/dL <200 [facility] Comment on above: <200 mg/dL Desirable 200-240 mg/dL Borderline >240 mg/dL High Risk Eosinophils/100 WBC (Bld) 2.1 % 0-5 [facility] Glucose [Mass/Vol] 137 mg/dL 74-106 [facility] Comment on above: Fasting Glucose resu lt greater than or equal to 126 mg/dL suggests DIABETES MELLITUS per A.D.A. criteria. Neutrophils (Bld) [#/Vol] 3.0 10*3/uL 2.0-7.7 [facility] Neutrophils/100 WBC (Bld) 61.9 % 47-70 [facility] Potassium [Moles/Vol] 4.0 mmol/L 3.5-5.1 [facility] Sodium [Moles/Vol] 139 mmol/L 136-145 [facility] Triglyceride [Mass/Vol] 309 mg/dL <199 [facility] Comment on above: The drugs N-Acetylcy steine and Metamizole may falsely depress this assay.Serum Triglycerides Reference Interval Normal <150 mg/dL Borderline high 150 - 199 mg/dL High 200 - 499 mg/dL Very High > or = 500 mg/dL WBC (Bld) [#/Vol] 4.9 10*3/uL 4.4-11.0 [facility] Blood erythrocytes count (nu mber/volume)Ordered By: Dr. Gonzalez on 11-16-2022 RBC (Bld) [#/Vol] 4.19 10*6/uL 4.2-5.4 [facility] Blood hemoglobin measurement (mass/volume)Ordered By: Dr. Gonzalez on 11-16-2022 Hemoglobin (Bld) [Mass/Vol] 12.7 g/dL 12.0-15.0 [facility] Blood lymphocytes/100 leukoc ytesOrdered By: Dr. Gonzalez on 11-16-2022 Lymphocytes/100 WBC (Bld) 27.0 % 19-41 [facility] Blood monocytes/100 leukocyt esOrdered By: Dr. Gonzalez on 11-16-2022 Monocytes/100 WBC (Bld) 8.6 % 0-10 [facility] Blood platelet mean volumeOr dered By: Dr. Gonzalez on 11-16-2022 Platelet mean volume (Bld) [Entitic vol] 10.7 fL 6.2-12.0 [facility] Determination of erythrocyte mean corpuscular volume (MCV)Ordered By: Dr. Gonzalez on 11-16-2022 MCV (RBC) [Entitic vol] 93.3 fL 81-99 [facility] Hematocrit Auto (Bld) [Volum e fraction]Ordered By: Dr. Gonzalez on 11-16-2022 Hematocrit (Bld) [Volume fraction] 39.1 % 37-47 [facility] Laboratory - Chemistry and C hemistry - challengeOrdered By: Dr. Gonzalez on 11-16-2022 CO2 [Moles/Vol] 30.0 mmol/L 21.0-32.0 [facility] Urea nitrogen/Creatinine [Mass ratio] 18.1 mg/mg 10-20 [facility] Laboratory - Hematology and Cell countsOrdered By: Dr. Gonzalez on 11-16-2022 Erythrocyte distribution width (RBC) [Entitic vol] 42.2 fL 35.1-43.9 [facility] Erythrocyte distribution width (RBC) [Ratio] 12.3 % 11.6-14.6 [facility] Immature granulocytes/100 WBC (Bld) 0.200 % 0.0-0.9 [facility] Comment on above: IG% - Immature Granu locytes (promyelocytes, myelocytes and metamyelocytes) > 1% indicates that a LEFT SHIFT is Present. MCH (RBC) [Entitic mass] 30.3 pg 27.0-32.0 [facility] Nucleated RBC/100 WBC (Bld) [Ratio] 0 % 0-5 [facility] MCHC Auto (RBC) [Mass/Vol]Or dered By: Dr. Gonzalez on 11-16-2022 MCHC (RBC) [Mass/Vol] 32.5 g/dL 32-36 [facility] No Panel InformationOrdered By: Dr. Gonzalez on 11-16-2022 Estimated GFR (MDRD) Amer 64 mL/min >60 [facility] Comment on above: GFR Calc Estimated GFR (MDRD) Non-Af Amer 53 mL/min >60 [facility] Comment on above: Non- GFR Calc Vitamin D 25-Hydroxy 32.5 ng/mL [facility] Comment on above: Vitamin D 25(OH) Sta tus Range Deficiency <20 ng/mL (50nmol/L) Insufficiency 20 - 30 ng/mL (50 - 75 nmol/L) Sufficiency 30 - 100 ng/mL (75 - 250 nmol/L) Toxicity >100 ng/mL (>250 nmol/L) Platelets bldOrdered By: Dr. Gonzalez on 11-16-2022 Platelets (Bld) [#/Vol] 242 10*3/uL 150-450 [facility] Serum or plasma calcium pastor urement (mass/volume)Ordered By: Dr. Gonzalez on 11-16-2022 Calcium [Mass/Vol] 9.8 mg/dL 8.5-10.1 [facility] Serum or plasma cholesterol in HDL measurement (mass/volume)Ordered By: Dr. Gonzalez on 11-16-2022 Cholesterol in HDL [Mass/Vol] 42 mg/dL >40 [facility] Comment on above: The drugs N-Acetylcy steine and Metamizole may falsely depress this assay. Reference Range HDL <40 mg/dL Low HDL Cholesterol HDL >or= 60 mg/dL High HDL Cholesterol Serum or plasma cholesterol in VLDL measurement (mass/volume)Ordered By: Dr. Gonzalez on 11-16-2022 Cholesterol in VLDL [Mass/Vol] 62 mg/dL 5-40 [facility] Serum or plasma creatinine m easurement [...] Cholesterol in LDL [Mass/Vol] 153 mg/dL 0-130 [facility] Serum or plasma urea nitroge n measurement (mass/volume)Ordered By: Dr. Gonzalez on 11-16-2022 Urea nitrogen [Mass/Vol] 19 mg/dL 7-18 [facility] Thin prep Papanicolaou smear with manual screeningOrdered By: Dr. Gonzalez on 11-16-2022 Thin prep Papanicolaou smear with manual screening 6 5-15 [facility] CNOVon 08-18-2022 CNOV Office Visit (ORMDNA ) RADHA GLOVER ([id number]) 1940 F Date Time Provider Department 08/18/22 [...] which included preparing to see the patient, [id number] patient care, completing clinical documentation, obtaining and/or [...] High: eGFR< (more content not included)... Normal [facility] 07-17-2022 ALLIED HEALTH HNO ID: [id number] Author: RT Yao(Grady) Service: ? 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 This note was partially generated using [employer] voice recognition system and as such may [...] - Fully Assessed Reason for Visit: New [341346] Knee Pain [132] Primary Visit Diagnosis:Arthritis of [...] Encounter Status:Closed by SORIN COOLEY on 07/17/22 [facility] XR KNEE 4V AP/PA BOTH+LAT/ME R [...] the medial femoral condyle and tibial plateau. 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 Gum Puller: RHYS Transcribe Date/Time: Jul 17 2022 3:14P Dictated by : CHOCO ZAVALA MD This examination was interpreted and the report reviewed and electronically signed by: CHOCO ZAVALA MD on Jul 17 2022 3:15PM EST [facility] * * *Final Report* * * DATE OF EXAM: Jul 17 2022 9:13AM [facility] [place]NEE 4V AP/PA BOTH+LAT/LIZ [...] joint space. No soft tissue abnormality identified. [facility] Provider, [facility] - 07/17/2022 * * *Final Report* * * DATE OF EXAM: Jul 17 2022 9:13AM [facility] [place] XR KNEE 4V AP/PA BOTH+LAT/LIZ [...] the medial femoral condyle and tibial plateau. Gum Puller: RHYS Transcribe Date/Time: Jul 17 2022 3:14P Dictated by : CHOCO ZAVALA MD This examination was interpreted and the report reviewed and electronically signed by: CHOCO ZAVALA MD on Jul 17 2022 3:15PM EST [facility] Radiology Study observation (narrative) [facility] XR Knee - left 4 ViewsOrdere d By: Ccf Provider on 07-17-2022 [facility] Basic Metabolic Panel $$$on 01-12-2018 Anion gap 15.4 mmol/L Normal [facility] Comment on above: Performed By: #### B MP ####[facility] [place] [address] BUN (urea nitrogen) 26 mg/dL High 7-18 [facility] Comment on above: Performed By: #### B MP ####[facility] [place] [address], [place] [address] Calcium 9.4 mg/dL Normal 8.5-10.1 [facility] Comment on above: Performed By: #### B MP ####[facility] [place] [address], [place] [address] Chloride 107 mmol/L Normal 98-107 [facility] Comment on above: Performed By: #### B MP ####[facility] [place] [address], [place] [address] CO2 25 mmol/L Normal 21-32 [facility] Comment on above: Performed By: #### B MP ####[facility] [place] [address], [place] [address] Creatinine 1.1 mg/dL Normal 0.6-1.3 [facility] Comment on above: Performed By: #### B MP ####[facility] [place] [address] eGFR (non-black) mL/min/{1.73_m2} Normal [facility] Comment on above: Result Comment: eGFR Units of measure: mL/min/1.73 m 2 Performed By: #### B MP ####[facility] [place] [address] Glucose mass conc 164 mg/dL High 74-106 [facility] Comment on above: Performed By: #### B MP ####[facility] [place] [address] Potassium molar conc 4.4 mmol/L Normal 3.5-5.1 [facility] Comment on above: Performed By: #### B MP ####[facility] [place] [address] Sodium 143 mmol/L Normal 136-145 [facility] Comment on above: Performed By: #### B MP ####[facility] [place] [address] CBC and Differentialon 12-23 Abs Baso <0.03 Normal <0.11 [facility] Comment on above: Performed By: #### C BCDIF, CMP, LIPB, TSH ####[facility] [address]zm[address] [phone] Abs Bibb 0.35 k/uL Normal <0.87 [facility] Comment on above: Performed By: #### C BCDIF, CMP, LIPB, TSH ####[facility] Onr[address] AveCGlenm[place], [place] [phone] Abs Neut 3.03 k/uL Normal 1.45-7.50 [facility] Comment on above: Performed By: #### C BCDIF, CMP, LIPB, TSH ####[facility] Ibb[address] AveCLaura [place] [phone] Basophils/100 WBC Auto (Bld) 0.4 % Normal [facility] Comment on above: Performed By: #### C BCDIF, CMP, LIPB, TSH ####[facility] Umv[address] AveCLaura V[place] [phone] DTYPE ADIFF Normal [facility] Comment on above: Performed By: #### C BCDIF, CMP, LIPB, TSH ####[facility] Orq[address] AveCLaura V[place] [phone] Eosinophils 0.14 10*3/uL Normal <0.46 [facility] Comment on above: Performed By: #### C BCDIF, CMP, LIPB, TSH ####[facility] [phone] Eosinophils/100 leukocytes 2.6 % Normal [facility] Comment on above: Performed By: #### C BCDIF, CMP, LIPB, TSH ####[place] [address] [address] [place] [phone] Erythrocyte distribution width Auto Ratio (RBC) 12.7 % Normal 11.5-15.0 [facility] Comment on above: Performed By: #### C BCDIF, CMP, LIPB, TSH ####[facility] Zse[address] AveCLaura [place] [phone] Erythrocytes (RBC) 0.0 /100 WBC Normal 0 [facility] Comment on above: Performed By: #### C BCDIF, CMP, LIPB, TSH ####[facility] Ecb[address] AveCLaura V[place] [phone] Erythrocytes (RBC) 4.50 10*6/uL Normal 3.90-5.20 [facility] Comment on above: Performed By: #### C BCDIF, CMP, LIPB, TSH ####[facility] Pps[address] AveCLaura [place] [phone] Erythrocytes (RBC) 10*6/uL Normal <0.01 [facility] Comment on above: Performed By: #### C BCDIF, CMP, LIPB, TSH ####[facility] R[address] [place] [phone] Hematocrit (HCT) 41.5 % Normal 36.0-46.0 [facility] Reference Lab Comment on above: Performed By: #### C BCDIF, CMP, LIPB, TSH ####[place] [phone] Hemoglobin mass conc (Bld) 13.7 g/dL Normal 11.5-15.5 [facility] Comment on above: Performed By: #### C BCDIF, CMP, LIPB, TSH ####[place] [phone] Lymphocytes 1.74 10*3/uL Normal 1.00-4.00 [facility] Comment on above: Performed By: #### C BCDIF, CMP, LIPB, TSH ####[place] [phone] Lymphocytes/100 leukocytes 32.8 % Normal [facility] Lab Comment on above: Performed By: #### C BCDIF, CMP, LIPB, TSH ####[place] [phone] MCH 30.4 pG Normal 26.0-34.0 [facility] Comment on above: Performed By: #### C BCDIF, CMP, LIPB, TSH ####[place] [phone] MCHC mass conc (RBC) 33.0 g/dL Normal 30.5-36.0 [facility] Reference [facility] Comment on above: Performed By: #### C BCDIF, CMP, LIPB, TSH ####[place] [phone] MCV 92.2 fL Normal 80.0-100.0 [facility] Comment on above: Performed By: #### C BCDIF, CMP, LIPB, TSH ####[facility] Ogw[address] AveCGlenm[place], [place] [phone] Monocytes/100 leukocytes 6.6 % Normal [facility] Comment on above: Performed By: #### C BCDIF, CMP, LIPB, TSH ####[facility] Aqu[address] AveCGlenm[place], [place] [phone] Neutrophils/100 WBC Auto (Bld) 57.6 % Normal [facility] Comment on above: Performed By: #### C BCDIF, CMP, LIPB, TSH ####[facility]CG[address], [place] [phone] Platelet mean volume (PMV) 10.6 fL Normal 9.0-12.7 [facility] Reference [facility] Comment on above: Performed By: #### C BCDIF, CMP, LIPB, TSH ####[place] [address] [address], [place] [phone] Platelets 262 10*3/uL Normal 150-400 [facility] Reference [facility] Comment on above: Performed By: #### C BCDIF, CMP, LIPB, TSH ####[facility] Mcj[address]CGlenm[place], [place] [phone] WBC (Leukocytes) 5.30 10*3/uL Normal 3.70-11.00 [facility] Comment on above: Performed By: #### C BCDIF, CMP, LIPB, TSH ####[facility] [address]tj[address]CGlenmora, [place] [phone] Comp Metabolic Panelon 12-23 Alanine aminotransferase (ALT) 21 U/L Normal 7-38 [facility] Reference [facility] Comment on above: Performed By: #### C BCDIF, CMP, LIPB, TSH ####[facility] Ldp[address]CGlenm[place], [place] [phone] Albumin 4.1 g/dL Normal 3.9-4.9 [facility] Comment on above: Performed By: #### C BCDIF, CMP, LIPB, TSH ####[facility] [address] [place], [place] [phone] Alkaline phosphatase (ALP) 95 U/L Normal 32-117 [facility] Comment on above: Performed By: #### C BCDIF, CMP, LIPB, TSH ####[place] [phone] Anion gap 13 mmol/L Normal 9-18 [facility] Comment on above: Performed By: #### C BCDIF, CMP, LIPB, TSH ####[place] [phone] Aspartate aminotransferase (AST) 22 U/L Normal 13-35 [facility] Comment on above: Performed By: #### C BCDIF, CMP, LIPB, TSH ####[place] [phone] Bilirubin Ql (U) 0.2 mg/dL Normal 0.2-1.3 [facility] Reference Lab Comment on above: Performed By: #### C BCDIF, CMP, LIPB, TSH ####[place] [phone] Calcium 9.3 mg/dL Normal 8.5-10.2 [facility] Comment on above: Performed By: #### C BCDIF, CMP, LIPB, TSH ####[place] [phone] Chloride 104 mmol/L Normal 97-105 [facility] Comment on above: Performed By: #### C BCDIF, CMP, LIPB, TSH ####[place] [phone] CO2 26 mmol/L Normal 22-30 [facility] Comment on above: Performed By: #### C BCDIF, CMP, LIPB, TSH ####[facility] [address] [phone] Creatinine 0.99 mg/dL High 0.58-0.96 [facility] Comment on above: Performed By: #### C BCDIF, CMP, LIPB, TSH ####[facility] [address] [place] [address] [phone] eGFR (non-black) 54 . Normal [facility] Reference Lab Comment on above: Performed By: #### C BCDIF, CMP, LIPB, TSH ####[place] [phone] eGFR (non-black) mL/min/{1.73_m2} Normal [facility] Reference Lab Comment on above: Performed By: #### C BCDIF, CMP, LIPB, TSH ####[place] [phone] Glucose mass conc 107 mg/dL High 74-99 [facility] Reference Lab Comment on above: Performed By: #### C BCDIF, CMP, LIPB, TSH ####[place] [phone] Potassium molar conc 4.7 mmol/L Normal 3.7-5.1 [facility] Reference Lab Comment on above: Performed By: #### C BCDIF, CMP, LIPB, TSH ####[address] [place] [phone] Protein 7.2 g/dL Normal 6.3-8.0 [facility] Comment on above: Performed By: #### C BCDIF, CMP, LIPB, TSH ####[place] [phone] Sodium 143 mmol/L Normal 136-144 [facility] Comment on above: Performed By: #### C BCDIF, CMP, LIPB, TSH ####[place] [phone] Urea nitrogen 17 mg/dL Normal 7-21 [facility] Comment on above: Performed By: #### C BCDIF, CMP, LIPB, TSH ####[place] [phone] Lipid Panel, Basicon 12-23- 018 Cholesterol 271 mg/dL High <200 [facility] Comment on above: Performed By: #### C BCDIF, CMP, LIPB, TSH ####[phone] Cholesterol in VLDL mass conc 40 mg/dL High <30 [facility] Comment on above: Performed By: #### C BCDIF, CMP, LIPB, TSH ####[phone] HDL Cholesterol 49 mg/dL Normal >39 [facility] Comment on above: Performed By: #### C BCDIF, CMP, LIPB, TSH ####[place] [phone] LDL Cholesterol 182 mg/dL High <100 [facility] Comment on above: Performed By: #### C BCDIF, CMP, LIPB, TSH ####[place] [phone] LDL:HDL Ratio 3.71 High <2.54 [facility] Comment on above: Performed By: #### C BCDIF, CMP, LIPB, TSH ####[place] [phone] Non HDL Cholesterol 222 mg/dL High <130 [facility] Reference Lab Comment on above: Performed By: #### C BCDIF, CMP, LIPB, TSH ####[place] [phone] TC:HDL Ratio 5.53 High <5.[address] [facility] Lab Comment on above: Performed By: #### C BCDIF, CMP, LIPB, TSH ####[place] [phone] Triglyceride 202 mg/dL High <[address] [facility] Lab Comment on above: Performed By: #### C BCDIF, CMP, LIPB, TSH ####[place] [phone] Fasting Time 12 hrs Normal [facility] Comment on above: Performed By: #### C BCDIF, CMP, LIPB, TSH ####[place] [phone] TSHon 12-23-2017 Thyroid stimulating hormone (TSH) 4.810 uU/mL Normal 0.400-5.500 [facility] Comment on above: Performed By: #### C BCDIF, CMP, LIPB, TSH ####[place] [phone] AUTO DIFFon 08-27-2017 Basophils Auto #/vol (Bld) 0.02 x1000 Normal 0.00-0.20 [facility] Comment on above: Performed By: #### 1 82764, 5945392, 372895, 3767783 ####[facility] [address]30 [place] [address] Medical Director: Gagandeep Ervin MD Basos % 0.3 % Normal [facility] Comment on above: Performed By: #### 1 84034, 4356695, 563881, 2487418 ####[facility] [address]wsbs[address]92 [place] [address] Medical Director: Gagandeep Ervin MD Eos Count 0.13 x1000 Normal 0.00-0.50 [facility] Comment on above: Performed By: #### 1 00990, 3221454, 472589, 1128812 ####[facility] Xllfldsl70201 [place] [address] Medical Director: Gagandeep Ervin MD Eosinophils/100 leukocytes 2.4 % Normal [facility] Comment on above: Performed By: #### 1 19722, 1571868, 479873, 8953246 ####[facility] [address]69[address] [place] [address] Medical Director: Gagandeep Ervin MD Lymphocytes 1.45 x1000 Normal 1.20-4.80 [facility] Comment on above: Performed By: #### 1 15049, 1283434, 745737, 1098806 ####[facility] [address]olf[address] [place] [address] Medical Director: Gagandeep Ervin MD Lymphocytes/100 leukocytes 25.6 % Normal [facility] Comment on above: Performed By: #### 1 05910, 5303009, 661996, 6644779 ####[facility] [address]zzup25015 [place] [address] Medical Director: Gagandeep Ervin MD Bibb Count 0.38 x1000 Normal 0.10-1.00 [facility] Comment on above: Performed By: #### 1 98662, 9197832, 862907, 3936430 ####[facility] Cfzpokxv61541 [place] [address] Medical Director: Gagandeep Ervin MD Monocytes/100 leukocytes 6.7 % Normal [facility] Comment on above: Performed By: #### 1 36841, 8838921, 259769, 7264368 ####[facility] [address]lwkcooy42184 [place] [address] Medical Director: Gagandeep Ervin MD Neutrophils 3.69 x1000 Normal 1.40-8.80 [facility] Comment on above: Performed By: #### 1 75415, 7274359, 816169, 6501526 ####[facility] [address]28 [place] [address] Medical Director: Gagandeep Ervin MD Neutrophils/100 WBC Auto (Bld) 65.1 % Normal [facility] Comment on above: Performed By: #### 1 04817, 0061722, 185113, 8912381 ####[facility] [address]wz[address] [place] [address] Medical Director: Gagandeep Ervin MD COMPMETAon 08-27-2017 Globulin 3.6 g/dL Normal [facility] Comment on above: Performed By: #### 1 50696, 8666574, 994201, 4205915 ####[facility] [address]z25[address] [place] [address] Medical Director: Gagandeep Ervin MD Osmolality 280 mOsm/kg Normal 275-295 [facility] Comment on above: Performed By: #### 1 59382, 6919867, 480564, 9496260 ####[facility] [address]wkolh59747 [place] [address] Medical Director: Gagandeep Ervin MD eGFR (non-black) mL/min/{1.73_m2} Normal [facility] Comment on above: Result Comment: Afri can Djib[place]ian GFR Calc Performed By: #### 1 40441, 3420026, 539162, 1203031 ####[facility] Tyfazlip12474 [place] [address] Medical Director: Gagandeep Ervin MD eGFR (non-black) 58 mL/min/1.73m? Normal [facility] Comment on above: Result Comment: Non GFR CalcMedical judgement is necessary to interpret GFR. The calculated GFR may not accurately reflect renal status in patients >70 years, women, acutely ill hospitalized patients and patients with acute renal failure or known renal disease.Note:Creatinine clearance (not GFR) should be used for drug dosing. Performed By: #### 1 60767, 1377359, 772501, 2177051 ####[facility] Isgedihb38170 [place] [address] Medical Director: Gagandeep Ervin MD BUN/Creatinine Ratio 20.2 mg/mg Normal [facility] Comment on above: Performed By: #### 1 66960, 1694237, 816554, 5907446 ####[facility] Tgrstsgz00917 [place] [address] Medical Director: Gagandeep Ervin MD Albumin/Globulin Ratio 0.9 {ratio} Normal [facility] Comment on above: Performed By: #### 1 10643, 6465741, 315005, 0032871 ####[facility] [address]461 [place] [address] Medical Director: Gagandeep Ervin MD Alk Phos 101 unit/L Normal 45-117 [facility] Comment on above: Performed By: #### 1 82861, 1343785, 535183, 2143300 ####[facility] [address]cf[address]2951 [place] [address] Medical Director: Gagandeep Ervin MD Protein 7.0 g/dL Normal 6.0-8.5 [facility] Comment on above: Performed By: #### 1 05729, 1441637, 306617, 8224629 ####[facility] T[address]ibqu[address]2348 [place] [address] Medical Director: Gagandeep Ervin MD Bilirubin (total) 0.36 mg/dL Normal 0.20-1.00 [facility] Comment on above: Performed By: #### 1 27632, 3367554, 464443, 5327039 ####[facility] [address]rz[address]zdrs46260 [place] [address] Medical Director: Gagandeep Ervin MD GPT 26 unit/L Normal 13-56 [facility] Comment on above: Result Comment: Marina puncture should occur prior to sulfasalazine and/or sulfapyridine administration due to the potential for falsely depressed results.Baseline assay values before administration of sulfasalazine and sulfapyridine therapy would not be affected. Performed By: #### 1 69365, 3983558, 166996, 4028313 ####[facility] [address]okvh29129 [place] [address] Medical Director: Gagandeep Ervin MD Creatinine 0.9 mg/dL Normal 0.6-1.0 [facility] Comment on above: Performed By: #### 1 41530, 8693416, 302607, 3726393 ####[facility] [address] [address] Medical Director: Gagandeep Ervin MD GOT 17 unit/L Normal 15-37 [facility] Comment on above: Result Comment: Marina puncture should occur prior to sulfasalazine and/or sulfapyridine administration due to the potential for falsely depressed results.Baseline assay values before administration of sulfasalazine and sulfapyridine therapy would not be affected. Performed By: #### 1 18944, 9378941, 657527, 5873998 ####[facility] Vmvialjh80767 [place] [address] Medical Director: Gagandeep Ervin MD Glucose mass conc 107 mg/dL High 72-100 [facility] Comment on above: Result Comment: Marina puncture should occur prior to sulfasalazine administration due to the potential for falsely depressed results. Venipuncture should occur prior to sulfapyridine administration due to the potential falsely elevated results.Baseline assay values before administration of sulfasalazine and sulfapyridine therapy would not be affected. Performed By: #### 1 43373, 2562498, 964586, 5617478 ####[facility] Qgtklpai56090 [place] [address] Medical Director: Gagandeep Ervin MD Urea nitrogen 19 mg/dL Normal 10-20 [facility] Comment on above: Performed By: #### 1 85299, 7066863, 142096, 3741661 ####[facility] T[address]czd58525 [place] [address] Medical Director: Gagandeep Ervin MD Albumin 3.4 g/dL Normal 3.4-5.0 [facility] Comment on above: Performed By: #### 1 72194, 9892638, 395018, 9928704 ####[facility] [address]quwvd05767 [place] [address] Medical Director: Gagandeep Ervin MD CO2 30.1 mmol/L Normal 21.0-32.0 [facility] Comment on above: Performed By: #### 1 09349, 8851573, 425641, 5470264 ####[facility] Inmorbig36983 [place] [address] Medical Director: Gagandeep Ervin MD Calcium 9.0 mg/dL Normal 8.5-10.5 [facility] Comment on above: Performed By: #### 1 59864, 5284329, 511789, 4940447 ####[facility] [address]alk68666 [place] [address] Medical Director: Gagandeep Ervin MD Sodium 139 mmol/L Normal 135-145 [facility] Comment on above: Performed By: #### 1 38603, 0277502, 305501, 0762178 ####[facility] Hhgcvgsl93629 [place] [address] Medical Director: Gagandeep Ervin MD Potassium molar conc 4.4 mmol/L Normal 3.5-5.1 [facility] Comment on above: Performed By: #### 1 12720, 3848496, 733883, 6076327 ####[facility] V[address]avkfds33871 [place] [address] Medical Director: Gagandeep Ervin MD Chloride 107 mmol/L Normal 100-109 [facility] Comment on above: Performed By: #### 1 89106, 9160734, 327237, 1640274 ####[facility] Troecefw20770 [place], [place] [address]) [phone] Director: Gagandeep Ervin MD HEMOon 08-27-2017 DIFF? No Normal [facility] Comment on above: Performed By: #### 1 58853, 8674084, 956700, 6904209 ####[facility] Wy[address]zyxw87945 [place], [place] [address]40) [phone] Director: Gagandeep Ervin MD Erythrocyte distribution width Auto Ratio (RBC) 13.2 % Normal 11.5-14.5 [facility] Comment on above: Performed By: #### 1 51614, 9563517, 331283, 9319371 ####[facility] Howsdqjq96849 [place], [place] 800[address]40) [phone] Director: Gagandeep Ervin MD Erythrocytes (RBC) 4.18 x10 Low 4.20-5.40 [facility] Comment on above: Result Comment: Note : RBC morphology is normal unless otherwise stated. Evaluation performed only if differential is requested. Performed By: #### 1 84055, 8629900, 256433, 6441718 ####[facility] Lndapqzt08429 [place], [place] [address]) [phone] Director: Gagandeep Ervin MD Hematocrit (HCT) 37.7 % Normal 36.0-46.0 [facility] Comment on above: Performed By: #### 1 96111, 1478509, 555209, 7212974 ####[facility] Ikndphvz97550 [place] [address] Medical Director: Gagandeep Ervin MD Hemoglobin mass conc (Bld) 12.6 g/dL Normal 12.0-16.0 [facility] Comment on above: Performed By: #### 1 77281, 5545665, 441796, 1281789 ####[facility] [address]udtek18595 [place] [address] Medical Director: Gagandeep Ervin MD MCH 30.1 pg Normal 27.0-34.0 [facility] Comment on above: Performed By: #### 1 91008, 1188424, 610529, 5943687 ####[facility] [address]pbk66[address] [place] [address] Medical Director: Gagandeep Ervin MD MCHC mass conc (RBC) 33.3 g/dL Normal 32.0-37.0 [facility] Comment on above: Performed By: #### 1 70629, 5657889, 026474, 6210714 ####[facility] [address]omfzm14607 [place] [address] Medical Director: Gagandeep Ervin MD MCV 90.3 fL Normal 80.0-100.0 [facility] Comment on above: Performed By: #### 1 90235, 2947539, 297940, 6169621 ####[facility] [address]edbjm69422 [place] [address] Medical Director: Gagandeep Ervin MD Nucleated RBC% 0 /100WC Normal [facility] Comment on above: Performed By: #### 1 65730, 5444997, 272809, 9860915 ####[facility] Ipacukvg15552 [place] [address] Medical Director: Gagandeep Ervin MD Platelet mean volume (PMV) 8.8 fL Normal 7.4-10.4 [facility] Comment on above: Performed By: #### 1 97929, 7161603, 196171, 9354834 ####[facility] Sdrritgf78400 [place] [address] Medical Director: Gagandeep Ervin MD Platelets 214 x1000 Normal 150-450 [facility] Comment on above: Performed By: #### 1 67802, 3891824, 350972, 3425375 ####[facility] Pkyaennh71415 [place] [address] Medical Director: Gagandeep Ervin MD WBC (Leukocytes) 5.7 10*3/uL Normal [facility] Comment on above: Performed By: #### 1 17611, 2235667, 840046, 5246895 ####[facility] Rkdugbzv72195 [place] [address] Medical Director: Gagandeep Ervin MD WBC (Leukocytes) 5.7 x10 Normal 4.5-11.0 [facility] Comment on above: Performed By: #### 1 58470, 5283828, 843445, 2882562 ####[facility] Fumgarwz49822 [place] [address] Medical Director: Gagandeep Ervin MD LIPID PNLon 08-27-2017 Calculated LDL Cholesterol 188 mg/dL High 60-130 [facility] Comment on above: Result Comment: <100 mg/dl Lhixktk385-252 mg/dl Near Wxzzlty833-684 mg/dl Borderline Gump200-125 mg/dl High>=190 mg/dl Very High Performed By: #### 1 42171, 5874453, 665642, 7539591 ####[facility] Ttsjcjeu10570 [place], [place] [address]) [phone] Director: Gagandeep Ervin MD Cholesterol to HDL Ratio 5.6 {ratio} Normal [facility] Comment on above: Performed By: #### 1 53595, 4670747, 103197, 9011824 ####[facility] C[address]awgqd29[address] [place], [place] 8[address]) [phone] Director: Gagandeep Ervin MD Cholesterol 272 mg/dL High 100-200 [facility] Comment on above: Result Comment: <200 mg/dl Ejlssmgzw592-784 mg/dl Borderline High>= 240 mg/dl High Performed By: #### 1 95920, 4769576, 150396, 4846823 ####[facility] Yyrmggyb98191 [place] [address] Medical Director: Gagandeep Ervin MD HDL Cholesterol 49 mg/dL Normal 40-60 [facility] Comment on above: Performed By: #### 1 76594, 6668405, 289673, 3781025 ####[facility] Nhnfctsg51958 [place] [address] Medical Director: Gagandeep Ervin MD Triglyceride 176 mg/dL High 30-150 [facility] Comment on above: Performed By: #### 1 93644, 7716566, 503618, 2051681 ####[facility] [address]olkznu10837 [place] [address] Medical Director: Gagandeep Ervin MD TSHon 08-27-2017 Thyroid stimulating hormone (TSH) 2.88 uIU/ml Normal 0.36-3.74 [facility] Comment on above: Result Comment: High levels of serum biotin may interfere with this test. Performed By: #### 1 08606 ####[facility] [address]zqyvdel71693 [place] [address] Medical Director: Gagandeep Ervin MD ANES La 03-17-2017 ANES POST HNO ID: [id number] thor: Akbar Rojaservice: AnesthesiologyAuthor Type: AnesthesiologistType: Anesthesia [...] Radha GloverDATE: March 17, 2017 PAGER/CONTACT #: [phone] pager [facility] ANE PREOPon 03-17-2017 ANES PREOP HNO ID: [id number] thor: Akbar Rojaservice: AnesthesiologyAuthor Type: AnesthesiologistType: Anesthesia PreOpFiled: 03/17/2017 8:03 AMNote Text:REGIONAL ANESTHESIOLOGY DAY OF SURGERY NOTEPATIENT NAME: Radha GloverMRN: [id number]: 1940Procedure(s) (LRB):THIGHPLASTY (Bilateral)Surgeon(s):Kyle SalcedoEstimated body mass index [...] TOTAL HIP REPLACEMENT Right Comment: Hip replacement, [id number]: TOTAL KNEE REPLACEMENT Right Comment: Knee replacement, [...] file prior to encounter.Inpatient medications reviewed in [facility].I have interviewed and examined the patient. I have reviewed the medicalrecord and/or the pre-anesthesia evaluation, pertinent labs, and testresults.Significant changes in the patient's condition since the History andPhysical, not otherwise documented in primary service progress notes: NoThis contains updated information obtained within 48 hours ofSurgery/Procedure.SIGNATU RE: Akbar Macias MD PATIENT NAME: Radha BergmanTE: March 17, 2017 : 8:02 AM PAGER/CONTACT #: [phone] (pager) [facility] BRIEF OP NOTon 03-17-2017 BRIEF OP NOT HNO ID: [id number] thor: German Lopez: Plastic SurgeryAuthor Type: PhysicianType: Brief Op NoteFiled: 03/17/2017 10:24 AMNote Text:BRIEF OPERATIVE NOTELOG ID: [id number] Date: 03/17/2017Surgeon(s) and Component Overhaul Operator(s):Surgeon(s) and Role: * German Salcedo - PrimaryPreop Diagnosis: Z41.1 CosmeticPostop Diagnosis: sameProcedure(s):Procedure( s) (LRB):THIGHPLASTY (Bilateral)Anesthesia: GeneralFindings: noneEstimated Blood Loss: 10 mlsSpecimens: noneSIGNATURE: German Salcedo MD PATIENT NAME: Radha GloverDATE: March 17, 2017 : 10:24 AM PAGER/CONTACT #: [facility] OPERATIVE NOon 03-17-2017 OPERATIVE NO HNO ID: [id number] thor: German Lopez: Plastic SurgeryAuthor Type: PhysicianType: Operative ReportFiled: 03/22/2017 7:41 AMNote Text:[facility] RADHA JACOBSONDOB: 1940 AGE: 76 SEX: FMRN: [id number] ACCTNUM: [id number] SVC: LOCATION:ATTENDING PHYSICIAN: German Salcedo M.D.DATE OF PROCEDURE: 03/17/2017PREOPERATIVE DIAGNOSIS: Bilateral medial thigh lipodystrophy.POSTOPERATIVE DIAGNOSIS: Same.NAME OF OPERATION: Revision bilateral medial thigh lift.SURGEON: German Salcedo M.D.ATTIC FANS MECHANIC: ALEXANDRA Lindquist-CANESTHESIA: General endotracheal anesthesia.HISTORY OF PRESENT [...] antibiotic irrigation. Hemostasis wasobtained with electrocautery. Then, 10-Greek drains were placed intothe wound secured with [...] at the endof the case.German Salcedo M.D.Plastic SurgeryJR:[id number]: 03/18/2017 08:54:51T: 03/18/2017 13:40:34Job #: [id number] [facility] PROGRESSon 03-17-2017 PROGRESS HNO ID: [id number] thor: Juana (Rn) STARR Dueñaservice: NursingAuthor Type: Registered NurseType: Progress NotesFiled: 03/17/2017 1:22 PMNote Text:Patient to PACU at this time. Hypertensive, so Dr Macias notified. Noorders received, will continue to monitor.1300: Drain instructions given to patient and friend with handouts anddrain log. [facility] NURSING PROGon 03-15-2017 NURSING PROG HNO ID: [id number] Author: Kendal (Rn) COSTA King Service: Neurosurgery Author Type: Registered Nurse Type: Nursing Progress Note Filed: 03/15/2017 8:11 AM Note Text: 03-12-17 PACC completed. No new labs ordered. Radha King RN [facility] Vital Signs Date Time Vital Sign Value Performing Clinician Facility 04-09-2023 19:29-0400 Diastolic blood pressure 65 mm[Hg] [facility] 04-09-2023 19:29-0400 Heart rate 69 /min [facility] 04-09-2023 19:29-0400 Respiratory rate 17 /min [facility] 04-09-2023 19:29-0400 SaO2% (BldA) [Mass fraction] 98 % [facility] 04-09-2023 19:29-0400 Systolic blood pressure 171 mm[Hg] [facility] 04-09-2023 17:28-0400 Body temperature 97.5 [degF] [facility] 04-09-2023 16:58-0400 Body height 162.56 cm [facility] 04-09-2023 16:58-0400 Body mass index (BMI) [Ratio] 28.7 kg/m2 [facility] 04-09-2023 16:58-0400 Body weight 75.84 kg [facility] 01-20-2023 14:11-0400 Body temperature 97.81 [degF] Shannan Vikas ELECTRIC OPERATOR Work Phone: [facility] 01-20-2023 14:11-0400 Diastolic blood pressure 70 mm[Hg] Shannan Vikas ELECTRIC OPERATOR Work Phone: [facility] 01-20-2023 14:11-0400 Heart rate 75 /min Shannan Vikas ELECTRIC OPERATOR Work Phone: [facility] 01-20-2023 14:11-0400 Respiratory rate 18 /min Shannan Vikas ELECTRIC OPERATOR Work Phone: [facility] 01-20-2023 14:11-0400 SaO2% (BldA) [Mass fraction] 97 % Shannan Vikas ELECTRIC OPERATOR Work Phone: [facility] 01-20-2023 14:11-0400 Systolic blood pressure 120 mm[Hg] Shannan Vikas ELECTRIC OPERATOR Work Phone: [facility] 01-15-2023 09:00-0400 Body temperature 97.2 [degF] Kaelyn Blake PT Work Phone: [facility] 01-15-2023 09:00-0400 Diastolic blood pressure 74 mm[Hg] Kaelyn Blake PT Work Phone: [facility] 01-15-2023 09:00-0400 Heart rate 83 /min Kaelyn Blake PT Work Phone: [facility] 01-15-2023 09:00-0400 Respiratory rate 18 /min Kaelyn Blake PT Work Phone: [facility] 01-15-2023 09:00-0400 SaO2% (BldA) [Mass fraction] 99 % Kaelyn Blake PT Work Phone: [facility] 01-15-2023 09:00-0400 Systolic blood pressure 164 mm[Hg] Kaelyn Blake PT Work Phone: [facility] 01-07-2023 10:15-0400 Body temperature 97.59 [degF] Shannan Vikas ELECTRIC OPERATOR Work Phone: [facility] 01-07-2023 10:15-0400 Diastolic blood pressure 60 mm[Hg] Shannan Vikas ELECTRIC OPERATOR Work Phone: [facility] 01-07-2023 10:15-0400 Heart rate 71 /min Shannan Vikas ELECTRIC OPERATOR Work Phone: [facility] 01-07-2023 10:15-0400 Respiratory rate 18 /min Shannan Vikas ELECTRIC OPERATOR Work Phone: [facility] 01-07-2023 10:15-0400 SaO2% (BldA) [Mass fraction] 97 % Shannan Vikas ELECTRIC OPERATOR Work Phone: [facility] 01-07-2023 10:15-0400 Systolic blood pressure 114 mm[Hg] Shannan Vikas ELECTRIC OPERATOR Work Phone: [facility] 01-01-2023 10:01-0400 Body temperature 98.1 [degF] Kaelyn Blake PT Work Phone: [facility] 01-01-2023 10:01-0400 Diastolic blood pressure 68 mm[Hg] Kaelyn Blake PT Work Phone: [facility] 01-01-2023 10:01-0400 Heart rate 77 /min Kaelyn Blake PT Work Phone: [facility] 01-01-2023 10:01-0400 Respiratory rate 16 /min Kaelyn Blake PT Work Phone: [facility] 04-21-2023 10:01-0400 SaO2% (BldA) [Mass fraction] 99 % Kaelyn Blake PT Work Phone: [facility] 01-01-2023 10:01-0400 Systolic blood pressure 150 mm[Hg] Kaelyn Blake PT Work Phone: [facility] 12-30-2022 12:04-0400 Diastolic blood pressure 76 mm[Hg] Becky Lai PT Work Phone: [facility] 12-30-2022 12:04-0400 Heart rate 74 /min Becky Lai PT Work Phone: [facility] 12-30-2022 12:04-0400 Respiratory rate 20 /min Becky Lai PT Work Phone: [facility] 12-30-2022 12:04-0400 SaO2% (BldA) [Mass fraction] 94 % Becky Lai PT Work Phone: [facility] 12-30-2022 12:04-0400 Systolic blood pressure 140 mm[Hg] Becky Lai PT Work Phone: [facility] 12-30-2022 11:42-0400 Body temperature 97.81 [degF] Becky Lai PT Work Phone: [facility] 12-11-2022 14:59-0400 Body height 160 cm Pacc 1 Work Phone: [facility] 12-11-2022 14:59-0400 Body temperature 97.59 [degF] Pacc 1 Work Phone: [facility] 12-11-2022 14:59-0400 Body weight 77.11 kg Pacc 1 Work Phone: [facility] 12-11-2022 14:59-0400 Diastolic blood pressure 60 mm[Hg] Pacc 1 Work Phone: [facility] 12-11-2022 14:59-0400 Heart rate 76 /min Pacc 1 Work Phone: [facility] 12-11-2022 14:59-0400 Respiratory rate 14 /min Pacc 1 Work Phone: [facility] 12-11-2022 14:59-0400 SaO2% (BldA) [Mass fraction] 95 % Pacc 1 Work Phone: [facility] 12-11-2022 14:59-0400 Systolic blood pressure 118 mm[Hg] Pacc 1 Work Phone: [facility] 12-02-2022 10:50-0400 Body height 162.56 cm [facility] 07-17-2022 08:51-0400 Body height 162.6 cm Sorin Cooley MD Work Phone: [facility] 07-17-2022 08:51-0400 Body weight 75.3 kg Sorin Cooley MD Work Phone: [facility] Encounters Encounter Date Encounter Type Care Provider Facility Start: 02-22-2025 End: 02-22-[address] Geo Gonzalez MD Work Phone: [facility] Work Phone: Start: 02-22-2025 End: 02-22-[address] Geo Gonzalez MD -[facility] Start: 02-22-2025 End: 02-22-2025 ambulatory Geo Gonzalez Facility:[facility] Start: 02-01-2025 End: 02-01-[address] Geo Gonzalez MD Work Phone: [facility] Work Phone: Start: 02-01-2025 End: 02-01-[address] Geo Gonzalez MD -[facility] Start: 02-01-2025 End: 02-01-2025 ambulatory Geo Gonzalez Facility:[facility] Start: 12-01-2024 End: 12-01-[address] Geo Gonzalez MD Work Phone: [facility] Work Phone: Start: 12-01-2024 End: 12-01-[address] [facility] Start: 12-01-2024 End: 12-01-2024 ambulatory Geo Gonzalez Facility:[facility] Start: 10-16-2024 End: 10-16-[address] [facility] Start: 10-16-2024 End: 10-16-2024 ambulatory Geo Gonzalez Facility:[facility] Start: 03-06-2024 End: 03-06-2024 ambulatory Geo Gonzalez Facility:[facility] Start: 12-04-2023 End: 12-04-2023 ambulatory [facility] Work Phone: Start: 12-04-2023 End: 12-04-2023 Patient encounter procedure [facility]-Laboratory Work Phone: Start: 09-09-2023 End: 09-09-2023 ambulatory [facility] Work Phone: Start: 09-09-2023 End: 09-09-2023 Patient encounter procedure [facility] Work Phone: Start: 06-29-2023 End: 06-29-2023 Patient encounter procedure [facility] Start: 04-27-2023 End: 04-27-2023 ambulatory GEO GONZALEZ Facility:[facility] Start: 04-09-2023 End: 04-09-2023 Emergency department patient visit [facility]-Emergency Department Work Phone: Start: 04-09-2023 End: 04-09-2023 ambulatory [facility] Work Phone: Start: 04-09-2023 End: 04-09-2023 Discharged Recurring [facility]-Physical Therapy Work Phone: Start: 04-09-2023 Registered Recurring [facility]Physical Therapy Work Phone: Start: 03-30-2023 End: 03-30-2023 ambulatory GEO GONZALEZ Facility:[facility] Start: 03-30-2023 End: 03-30-2023 Patient encounter procedure Dheeraj Grater PENETRATION TESTER.DEVELOPING MACHINE TENDER Work Phone: Orthopaedics Comment on above: Status post left kne e replacement (Primary Dx); Arthrofibrosis of knee joint, left Start: 03-22-2023 End: 03-22-2023 ambulatory [facility] Facility:[facility] Start: 03-19-2023 Orders Only Dheeraj Grater PENETRATION TESTER.DEVELOPING MACHINE TENDER Work Phone: Orthopaedics Comment on above: Arthrofibrosis of kn ee joint, left (Primary Dx) Start: 03-18-2023 End: 03-18-2023 ambulatory DHEERAJ SMITHR Facility:[facility] Start: 03-18-2023 End: 03-18-2023 Patient encounter procedure Dheeraj Grater PENETRATION TESTER.DEVELOPING MACHINE TENDER Work Phone: Orthopaedics Comment on above: Arthrofibrosis of kn ee joint, left (Primary Dx); Status post left knee replacement Start: 02-26-2023 End: 02-26-2023 ambulatory [facility] Work Phone: Start: 02-26-2023 End: 02-26-2023 Patient encounter procedure [facility] Start: 02-18-2023 End: 02-18-2023 ambulatory [facility] Facility:[facility] Start: 01-20-2023 End: 01-20-2023 Home visit Shannan Bean ELECTRIC OPERATOR Work Phone: [facility] Comment on above: ELECTRIC OPERATOR ROUTINE Start: 01-15-2023 End: 01-15-2023 Home visit Kaelyn Blake PT Work Phone: [facility] Comment on above: PT REASSESSMENT Start: 01-14-2023 End: 01-14-2023 ambulatory DHEERAJ SARAHR Facility:[facility] Start: 01-14-2023 End: 01-14-2023 Patient encounter procedure Dheeraj Grater PENETRATION TESTER.DEVELOPING MACHINE TENDER Work Phone: Orthopaedics Comment on above: Status post left kne e replacement (Primary Dx) Start: 01-14-2023 End: 01-14-2023 Subsequent hospital visit by physician Radio General Catherine Bonner Work Phone: Radiology Comment on above: Chronic pain of left knee [M25.562, G89.29] Start: 01-12-2023 Telephone encounter Kaelyn Blake PT Work Phone: [facility] Comment on above: Home Care (Out patie nt PT ) Start: 01-07-2023 End: 01-07-2023 Home visit Shannan Bean ELECTRIC OPERATOR Work Phone: [facility] Comment on above: ELECTRIC OPERATOR ROUTINE Start: 01-05-2023 Telephone encounter Kaelyn Blake PT Work Phone: [facility] Comment on above: Home Care (Dressing removal ) Start: 01-01-2023 End: 01-01-2023 Home visit Kaelyn Blake PT Work Phone: [facility] Comment on above: PT ROUTINE Start: 12-30-2022 End: 12-30-2022 Orders Only Dheeraj Landa PENETRATION TESTER.DEVELOPING MACHINE TENDER Work Phone: Orthopaedics Comment on above: Chronic pain of left knee (Primary Dx) PT SOC Start: 12-28-2022 End: 12-29-2022 ambulatory GONZÁLEZ YOUNGER Facility:[facility] Start: 12-22-2022 End: 12-22-2022 ambulatory GEO GONZALEZ Facility:[facility] Start: 12-22-2022 Encounter for other preprocedural examination GEO GONZALEZ [facility] Start: 12-11-2022 End: 12-11-2022 Admission to establishment [...] Start: 12-11-2022 End: 12-11-2022 Preprocedural examination done [place] [id number] Work Phone: Pre Anesthesia Start: 12-08-2022 Orders Only Brennan Eddy Work Phone: Orthopaedics Comment on above: Primary osteoarthrit is of left knee (Primary Dx) Pre-Op Teaching Start: 12-02-2022 End: 12-02-2022 ambulatory [facility] Work Phone: Start: 12-02-2022 End: 12-02-2022 Patient encounter procedure [facility]-Outpatient Bone Densitometry Start: 11-16-2022 End: 11-16-2022 ambulatory [facility] Work Phone: Start: 11-16-2022 End: 11-16-2022 Patient encounter procedure [facility] Start: 08-18-2022 End: 08-18-2022 ambulatory DAVID SANTANA Facility:[facility] Start: 08-18-2022 End: 08-18-2022 Patient encounter procedure Brennan Monsivais MD Work Phone: Orthopaedics Comment on above: Arthritis of knee (P rimary Dx) Start: 07-17-2022 End: 07-17-2022 ambulatory SORIN COOLEY Facility:[facility] Start: 07-17-2022 End: 07-17-2022 Patient encounter procedure Sorin Cooley MD Work Phone: Orthopaedics Comment on above: Arthritis of knee (P rimary Dx) Start: 07-17-2022 End: 07-17-2022 Subsequent [facility] Work Phone: [facility] Comment on above: Left knee pain, unsp ecified chronicity [M25.562] Start: 02-06-2022 End: 02-06-2022 Patient encounter procedure [facility]-Cardiovascula r Services Start: 12-31-2021 End: 12-31-2021 Discharged Recurring [facility]-Physical Therapy Start: 11-19-2021 End: 11-19-2021 Patient encounter [place] [facility] Start: 01-12-2018 Ambulatory David Santana Facility:[facility] Start: 08-27-2017 End: 08-28-2017 Ambulatory DAVID SANTANA Facility:[id number] Start: 03-17-2017 [facility] [...] examinati on knee 3 views Dheeraj Landa APRN.DEVELOPING MACHINE TENDER Work Phone: Start: 12-11-2022 Antibody screen GOE NUNES Comment on above: Order Comment: Speci men Type: BLOOD SPECIMENOrdering Facility: [facility] Address: [address] [place] [address] Performed By: #### T [id number] ####[facility] BLOOD BANKCLIA [id number] [place] [address] [place] Start: 12-11-2022 Ecg routine ecg w/le ast 12 lds i&r only [facility] Provider Start: 12-11-2022 History of operative procedure on knee History of right knee joint replacement [place] [id number] Work Phone: Start: 12-02-2022 Dual energy X-ray absorptiometry Start: 07-17-2022 Radiologic exam knee complete 4/more views Sorin Cooley MD Work Phone: Start: 11-19-2021 X-ray of lumbosacral spine Plan of Treatment Date Care Activity Detail Author Start: 12-29-2025 DIABETES SCREEN DIABETES SCREEN [facility] Start: 12-29-2025 Diabetes Screening Diabetes Screenin g [facility] Start: 12-11-2025 DIABETES SCREEN DIABETES SCREEN [facility] Start: 05-14-2024 Covid-19 Vaccine () Covid-19 Vaccine () [facility] Start: 05-14-2024 Influenza vaccination Influenza Vacc ine (#1) [facility] Start: 09-13-2023 Advance Directive Discussion Advance Directive Discussion [facility] Start: 05-14-2023 Influenza vaccination C [facility] Start: 12-11-2022 End: 02-10-2023 Ferritin [Mass/volume] in Serum or Plasma FERRITIN BLD Lab Routine Pre-operative examination Expected: 12/11/2022, Expires: 02/10/2023 [facility] Work Phone: Comment on above: Expected: 12/11/2022 , Expires: 02/10/2023 Start: 12-11-2022 End: 02-10-2023 Iron and Iron binding capacity panel - Serum or Plasma IRON + TIBC Lab Routine Pre-operative examination Expected: 12/11/2022, Expires: 02/10/2023 [facility] Work Phone: Comment on above: Expected: 12/11/2022 , Expires: 02/10/2023 Start: 12-11-2022 End: 02-10-2023 TYPE AND SCREEN,30 DAY [facility] Work Phone: Comment on above: Expected: 12/11/2022 , Expires: 02/10/2023 Start: 09-13-2022 ADVANCE DIRECTIVE DISCUSSION ADVANCE DIRECTIVE DISCUSSION [facility] Start: 09-13-2022 [facility] Start: 05-14-2022 Influenza vaccination INFLUENZA (#1) [facility] Start: 09-13-2021 ADVANCE DIRECTIVE DISCUSSION ADVANCE DIRECTIVE DISCUSSION [facility] Start: 09-13-2021 DEPRESSION ASSESSMENT DEPRESSION ASS [facility] Start: 03-27-2021 Urine microalbumin profile [facility] Start: 03-05-2021 COVID-19 VACCINE (3 - Booster for Pfizer series) COVID-19 VACCINE (3 - Booster for Pfizer series) [facility] Start: 03-05-2021 COVID-19 VACCINE (3 - Pfizer series) COVID-19 VACCINE (3 - Pfizer series) [facility] Start: 12-01-2014 DIABETES SCREEN DIABETES SCREEN [facility] Start: 2013 RSV Vaccine (1 - 1-d ose 75+ series) RSV Vaccine (1 - 1-dose 75+ series) [facility] Start: 03-27-2012 Pneumococcal Vaccine : 65+ (2 of 2 - PCV) Pneumococcal Vaccine: 65+ (2 of 2 - PCV) [facility] Start: 03-27-2012 PNEUMOCOCCAL: 65+ (2 - PCV) PNEUMOCOCCAL: 65+ (2 - PCV) [facility] Start: 1988 SHINGRIX VACCINE (1 of 2) CUELLAR GRIX VACCINE (1 of 2) [facility] Start: 1956 Anxiety Screening Anxiety Screening [facility] Start: 1956 Depression Screening Depression Scre ening [facility] End: 12-12-2023 ECG COMPLETE ECG COMPLETE ECG Routine Pre-operative examination 1 Occurrences starting 12/11/2022 until 12/12/2023 [facility] Work Phone: Comment on above: 1 Occurrences starti ng 12/11/2022 until 12/12/2023 ECG COMPLETE ECG COMPLETE ECG 12/11/2022 3:10 PM EDT [facility] End: 12-12-2023 Echocardiography ECHO Cardiology Routine Pre-operative examination 1 Occurrences starting 12/11/2022 until 12/12/2023 [facility] Work Phone: Comment on above: 1 Occurrences starti ng 12/11/2022 until 12/12/2023 Patient Education ED Concussion ED Scalp Contusion ED Head Injury (Adult) [facility] Work Phone: Patient referral [facility] Work Phone: End: 01-30-2024 XR KNEE POST OP 3V AP/LAT/MERCHANT LEFT XR KNEE POST OP 3V AP/LAT/MERCHANT LEFT Radiology Routine Chronic pain of left knee 1 Occurrences starting 12/31/2022 until 01/30/2024 [facility] Work Phone: Comment on above: 1 Occurrences starti ng 12/31/2022 until 01/30/2024 [facility] Immunizations Immunization Date Immunization Notes Care Provider Fa cility 01-08-2021 Covid (Pfizer) [facility] 12-18-2020 Covid (Pfizer) [facility] 03-27-2011 diphtheria and tetan us toxoids, adsorbed for pediatric use Sorin Cooley MD Work Phone: [facility] 03-27-2011 pneumococcal polysaccharide vaccine, 23 valent Sorin Cooley MD Work Phone: [facility] Payers Date Payer Category Payer Private Health Insurance 101 [id number] 2024 Self-pay [id number] 2021 Medicare [id number] 2021 Medicare HUMANA MEDICARE HUMANA MEDICARE PPO [id number] 2021-Present [phone] [address] [address] [place] [address] PPO [id number] Medicare [id number] Unknown [id number] Unknown [id number] Unknown [id number] Unknown [id number] Unknown [id number] 62 Unknown [id number] 62 Unknown [id number] Social History Date Type Detail Facility Start: 05-20-2018 End: 04-09-2023 Tobacco smoking status ILIS Unknown if ever smoked [facility] Start: 1940 Sex Assigned At Female W [facility] Start: 07-17-2022 End: 04-09-2023 Tobacco smoking status ILIS Never smoked tobacco [facility] Start: 07-17-2022 Tobacco use and exposure Smokeless tobacco non-user [facility] Start: 07-17-2022 End: 12-11-2022 Alcohol intake Current drinker of alcohol (finding) [facility] Start: 07-17-2022 Tobacco Comment No [facility] Start: 03-27-2011 Alcohol Comment rarely [facility] Start: 1940 Sex Assigned At Not on file C [facility] Start: 07-07-2022 End: 07-17-2022 Exposure to SARS-CoV-2 (event) Not sure [facility] Start: 07-17-2022 End: 12-11-2022 History of Social function [facility] Start: 07-17-2022 End: 12-11-2022 Tobacco use panel [facility] National Score (1-100), lower number is lower risk 72 [facility] Start: 12-07-2024 Sex Female (finding) [facility] Medical Equipment Procedure Code Equipment Code Equipment Origin al Text Equipment Identifier Dates Head Fem +5mm 07/26 36mm Hip - [id number] Start: 11-30-2011 Comment on above: Description: ARTICUL IZE METAL ON METAL FEMORAL HEAD Screw Bn 6.5mm 25mm Pinn Canc - [id number] Start: 11-30-2011 Comment on above: Description: PINNACL E CANCELLOUS BONE SCREW Cement Simplex P Bone Radiopaque Full Dose Sterile - [id number] Start: 12-28-2022 Insert Triathlon 4 9mm Tibial Bearing Condylar Stabilize Sterile Knee - [id number] Start: 12-28-2022 Component Triathlon 32mm 10mm Patellar Asymmetric Knee - [id number] Start: 12-28-2022 Baseplate Triathlon 4 Tibial Primary Cement Knee - [id number] Start: 12-28-2022 Cement Simplex P Bone Radiopaque Full Dose Sterile - [id number] Start: 12-28-2022 Cup Actb 52mm Pi nn Sect Srs - [id number] Start: 11-30-2011 Comment on above: Description: PINNACL E GRIPTION ACETABULAR SHELL SECTOR Liner Actb Altrx Neut 52mm 36 - [id number] Start: 11-30-2011 Comment on above: Description: PINNACL E ALTRX POLYETHYLENE ACETABULAR LINER NEUTRAL Stem Fem 12mm Cmntls Clrls Crl - [id number] Start: 11-30-2011 Comment on above: Description: CORAIL FEMORAL STEM WITHOUT COLLAR Component Triathlon 5 Femoral Cruciate Retain Cemented Knee Left - [id number] Start: 12-28-2022 Clinical Notes 09-27-2013 to 12-01-2024 Note Date & Type Note Facility 12-01-2024 Radiology Diagnostic study note [facility] Imaging Services [address] [place] [id number] Ribs Unil 2V No CXR MR#: [id number] Acct: [id number] Name: RADHA GLOVER Rep #: [id number] : 1940 F 84 From: Mita Yañez MD PCP: Dr. Geo Gonzalez MD Status: ALEYDA HUGO Study:Ribs Unil 2V No CXR Date of Exam: 12/01/24 Exam# [id number] Ordering Dr: Geo Gonzalez MD PROCEDURE: RIBS [...] 3. Additional description as above. Reading Location: [facility] CC: Dr. Geo Gonzalez MD ~ Gum Puller: Signed [facility] 12-01-2024 Radiology Diagnostic study note [facility] Imaging Services [address] [place] [address] L/S Spine Min 4 Views MR#: [id number] Acct: [id number] Name: RADHA GLOVER Rep #: [id number] : 1940 F 84 From: Mita Yañez MD PCP: Dr. Geo Gonzalez MD Status: REG C Study:L/S Spine Min 4 Views Date of Exam: 12/01/24 Exam# [id number] Ordering Dr: Geo Gonzalez MD PROCEDURE: L/S [...] delineated by MRI as indicated. Reading Location: [id number] CC: Dr. Geo Gonzalez MD ~ Gum Puller: Signed [facility] 05-24-2023 Discharge summary Note Date/Time May 24, 2023 7:20am [facility] Physical Therapy [facility] [address] [place] [address]. [address] [place] [address] / REHABILITATION SERVICES DISCHARGE SUMMARY MR#: [id number] Acct: [id number] Name: RADHA GLOVER Rep #: [id number] : 1940 82 From: Devon Lugo DPT, [...] please feel free to call me at [phone]. Thank you for the referral of thispatient. Sincerely, Devon Lugo DPT, ASHLEY, CSCS Balance/Gait/Functional tests Balance/Special Test Scores Functional Gait Assessment Score: 27 % Disability: 10.0000 Lower Extremity Functional Score: 60 Improvement % Improvement: 100 <Electronically signed by Devon Lugo DPT, ASHLEY, CSCS> 05/24/23 0720 CC: Dr. Geo Gonzalez MD; DHEERAJ LANDA ~ EBG Signed [facility] Work Phone: 1(630) 259-476308-15-2023 NoteHNO ID: [id number] Author: Dheeraj Landa APRN.TORO Service: ? Author [...] 1 year. All questions answered. Dheeraj Landa APRN.DEVELOPING MACHINE TENDER [facility] April 09, 2023 7:14pm Note Date/Time April 09, 2023 5:40 pm [facility] Medical Records Department [address] [place] [address] Emergency Department Summary 04/09/23 MR#: [id number] Acct: [id number] Name: RADHA GLOVER Rep #:[id number] : 1940 82 From: Lesley Price PCP: [...] complaints or concerns at this time. [facility] Medical History Back pain Knee pain Home [...] motor deficits and no sensory deficits noted [place] Coma Scale: document GCS findings Spontaneous Obeys [...] your Primary Care Provider. Call [facility] ([phone]) or report to the closest Emergency Room. Call 911 if necessary. 04/09/231913 <Electronically signed by Lesley Walker DO> Cosigner Signature (if applicable): CC: Dr. Geo Gonzalez MD ~ Signed [facility] Work Phone: 1(734) 687-818107-18-2023 NoteHNO ID: [id number] Author: Dheeraj Landa APRN.CNP Service: ? Author [...] op with repeat x-rays. All questions answered Deheraj Landa APRN.CNP [facility] [facility]07-18[facility]23 History of Present illness Narrative* Dheeraj Landa [...] Landa APRN.CNP Orthopaedic Surgery documented in this encounterLouis [facility]23 NoteHNO ID: [id number] Author: Dheeraj Landa APRN.CNP Service: ? Author [...] get this scheduled. Dheeraj Landa APRN.CNP [facility]opa[facility] SurgeryL[facility] History of Present illness Narrative* Dheeraj Landa [...] Landa APRN.CNP Orthopaedic Surgery documented in this encounterLouis [facility]06-09-2023 NoteHNO ID: [id number] Author: Dheeraj Landa APRN.CNP Service: ? Author [...] swelling, drainage, shortness of breath Dheeraj Landa APRN.[facility] SurgeryL[facility] Miscellaneous Notes* PT ROUTINE/REASSESSMENT/RECERT/CASE MGMT - Shannan Bean, ELECTRIC OPERATOR - 01/20/2023 2:03 PM EDT SITUATION: only [...] summary for intervention/education details. documented in this encounterLouis [facility]05-05-2023 Miscellaneous Notes* PT ROUTINE/REASSESSMENT/RECERT/CASE MGMT [...] summary for intervention/education details. documented in this encounterLouis Stokes [facility]05-04-2023 NoteHNO ID: [id number] Author: Dheeraj Landa APRN.DEVELOPING MACHINE TENDER Service: ? Author Type: Nurse Practitioner Type: [...] swelling, drainage, shortness of breath Dheeraj Landa APRN.DEVELOPING MACHINE TENDER Orthopaedic SurgeryLakehealth [facility]2023 NoteHNO ID: [id number] Author: SPEEDY Doran Service: Radiology Author Type: [...] 1:40 PM[facility] [id number] History of Present illness Narrative* Dheeraj Landa [...] Landa APRN.CNP Orthopaedic Surgery documented in this encounterLouis Stokes [facility]05-04-2023 History of Present illness Narrative* Osmel Dueñas CT - 01/14/2023 1:40 PM EDT Radiology Service Progress Note PATIENT NAME: Radha MCMULLENN: [id number] DATE OF SERVICE: January 14, 2023 TIME: [...] 14, 2023 1:40 PM documented in this encounterLouis Stokes [facility]04-27-2023 Miscellaneous Notes* PT ROUTINE/REASSESSMENT/RECERT/CASE MGMT - Shannan Viksa, ELECTRIC OPERATOR - 01/07/2023 10:10 AM EDT SITUATION: only [...] summary for intervention/education details. documented in this encounterLouis Stokes [facility]04-21-2023 Miscellaneous Notes* PT ROUTINE/REASSESSMENT/RECERT/CASE MGMT [...] summary for intervention/education details. documented in this encounterLouis Stokes [facility]04-19-2023 Miscellaneous Notes* PT SOC/SAI/FOLLOW UP/OTHER [...] knee 0-60 degrees AAROM Patient evaluated [facility] therapy. Reviewed and [...] summary for intervention/education details. documented in this encounterLouis Stokes [facility]04-18-2023 NoteHNO ID: [id number] Author: Mirela Xiong ([place]) Service: Pharmacy Author Type: ? Type: Plan of Care Filed: 12/30/2022 11:03 AM Note Text: PHARMACY BEDSIDE DELIVERY SERVICE Patient Name: Radha Glover The marked outpatient medications were Filled at: [place] and delivered to the patient's bedside to [...] ointment Commonly known as: BACTROBAN Mirela Xiong ([place]) PAGER: [phone] December 30, 2022 11:[address] [facility] NoteHNO ID: [id number] Author: González Younger MD Service: General Internal [...] medication Possible discharge today SIGNATURE: González Younger [place] [address]-18-2023 NoteHNO ID: [id number] Author: Stephen Hughes PA-C Service: Orthopaedic Surgery Author Type: Physician Component Overhaul Operator Type: Progress Notes Filed: 12/29/2022 8:05 AM [...] 1500 VTE RISK CATEGORY: SURGICAL HIGH RISK ([place], [place]) Active VTE Medication Orders: Anticoagulant AND Antiplatelet Medications (From admission, onward) Start Dose Route Frequency Last Action Ordered Stop 12/29/22 0900 aspirin, enteric coated 81 mg tab(s) (Surgical Risk Categories) 81 mg ORAL 2 TIMES DAILY Ordered 12/28/22 1457 -- Active VTE Prophylaxis Orders: 12/28/22 1500 PNEUMATIC COMPRESSION STOCKINGS ([place], [place]) 12/28/22 1500 ACTIVITY - MOBILIZE PATIENT ([place]) PHYSICAL EXAMINATION: Left Lower Extremity: Dorsalis [...] versus benefits.[facility] [id number] NoteHNO ID: [id number] Author: Jack Suárez APRN.RESEARCH ASSISTANT Service: Anesthesiology Author Type: Nurse Ring Stamper Type: Anesthesia Procedure Notes Filed: 12/28/2022 11:38 AM Note Text: ANESTHESIOLOGY PROCEDURE NOTE Spinal Block General Information Procedure Start Time/Medication Administration: 12/28/2022 11:18 AM Patient location during procedure: OR Timeout Performed Pre-procedure: timeout performed Consent Obtained: Yes Patient identity confirmed: arm band and patient Reason for Block: primary surgical anesthetic Staffing RESEARCH ASSISTANT: Jack Suárez APRN.RESEARCH ASSISTANT Performed by: RESEARCH ASSISTANT Preparation Sterility Preparation: hand hygiene performed prior [...] Assessment Events: tolerated well SIGNATURE: Jack Suárez APRN.RESEARCH ASSISTANT PATIENT NAME: Radha Glover DATE: December 28, 2022 TIME: 11:37 AM CSN: [id number] NoteHNO ID: [id number] Author: Batsheva Proctor MD Service: Anesthesiology Author [...] December 28, 2022 TIME: 10:22 AM CSN: [id number] Instructions* Patient Instructions* Kristine Mason APRN.DEVELOPING MACHINE TENDER - 12/11/2022 3:15 PM EDT PATIENT PREOPERATIVE INSTRUCTIONS Brennan Monsivais MD has scheduled you for your procedure at this [facility] center: [facility] [place]: [phone] -- [address] [address]. Please read below carefully for your personalized [...] Procedures: - YOU MUST HAVE A RESPONSIBLE COMPOUNDER HELPER TAKE YOU HOME. A COMPTOMETRIST OR FEED HANDLER CANNOT BE MADE A RESPONSIBLE COMPOUNDER HELPER. - We recommend that a responsible person [...] Advance Directive, please fax a copy to [phone] or email to for it to be [...] day. Kristine Mason APRN.CNP documented in this encounterLouis Stokes [facility]03-31-2023 History and physical note * [...] fevers. Neurological: No history of TIA's, stroke, ASSOCIATE SCIENTIST tumor, impaired sensorium, hemiplegia, paraplegia orquadraplegia. No neurological symptoms or problems. Respiratory: No history of current cough or dyspnea, or pneumonia in the past 6 weeks. No history of respiratory/pulmonary symptoms or problems. Cardiovascular: Positive for: hypertension (on rx) Negative for: anticoagulation therapy, arrhythmia, atrial fibrillation, CAD, chest pain, CHF, congenital heart defect, DVT/PE, hyperlipidemia, recent FL, murmur/valvular heart disease, open heart surgery and valve surgery. GI: Positive for: GERD (otc rx as needed) Negative for: abdominal pain, dysphagia, hepatitis, irritable bowel syndrome, inflammatory bowel disease, liver disease, nausea, pancreatitis, vomiting and ETOH >2 drinks/day. : No history of dysuria, frequency or incontinence, stones or chronic kidney disease. No difficulty urinating, nocturia > 1 time per night or hematuria. DIRECTOR CARDIOLOGY: Negative for abnormal vaginal bleeding, abnormal vaginal [...] of surgery. Medication Comments documented by [place] ([facility]) Swetha Dueñas RN on 10/14/2012 at 0644. [...] 398 QTC Calculation ([place]) 426 Calculated P [place] -2 Calculated R [place] 26 Calculated T [place] 63 Impression NORMAL SINUS RHYTHM NORMAL ECG No results found for this or any previous visit (from the past 52824 hour(s)). Assessment Patient has the following medical [...] 35 kg/m^2 Non-male patient STOP-Bang Score: 4 [id number] Score: Age: >=75 Sex: female CHF history: No Hypertension history: Yes Stroke/TIA/thromboembolism history: No Vascular disease history: No Diabetes history: No [id number] Score: 4 ARISCAT Score: Age: >80 Preoperative [...] and consent discussed: yes. Patient / Responsible Alliance Party agrees to proceed: yes Patient / [...] 3:06 PM PAGER/CONTACT #: documented in this encounterLouis Stokes [facility] Center03-28-2023 Miscellaneous Notes* Telephone Encounter - KAILEE Landry - 12/08/2022 11:14 AM EDT TOTAL JOINT COMPLETE CARE PROGRAM PRE-OPERATIVE TEACHING Service D/ate: 12/16/2022 Service Time: 11:33 AM Date of : 1940 Gender: female Date of Surgery: 12/28/22 Procedure: Left Total Knee Replacement Complete Care Program was discussed with the patient: Esthetician/Skin Therapist Identification: Patient identified a animal care taker to help when discharged to home: lives [...] 2022 TIME: 11:14 AM documented in this encounterLouis Stokes [facility] Center12-06-2022 NoteHNO ID: [id number] Author: Brennan Monsivais MD Service: ? Author [...] which included preparing to see the patient, myuc-ed-cfdb patient care, completing clinical documentation, obtaining and/or [...] 100-299 Normal: 0 (more content not included)... [facility] History of Present illness Narrative* Brennan Monsivais [...] which included preparing to see the patient, jooe-[id number] patient care, completing clinical documentation, obtaining and/or [...] 2022 TIME: 8:32 AM documented in this encounterLouis Stokes [facility] Center11-04-2022 NoteHNO ID: [id number] Author: Sorin Cooley MD Service: ? Author [...] satisfaction. This note was partially generated using [employer] voice recognition system and as such may contain grammatical or word errors Sorin Cooley, [facility]11-04-2022 Miscellaneous Notes* Allied Health - Mayda Fisher, [...] 17, 2022 9:13 AM documented in this encounterLouis Stokes [facility] Center11-04-2022 Progress note* Allied Health - [...] RT Yao(R) July 17, 2022 9:13 AM [facility]11-04-[facility] History of Present illness Narrative* [...] satisfaction. This note was partially generated using [employer] recognition system and as such may contain grammatical or word errors Sorin Cooley MD documented in this encounterLouis Stokes [facility] Center01-15-2014 History of Past illness Narrative* Problem Noted Date Resolved Date Rotator cuff arthropathy 09/27/2013 017 Hip arthritis 10/14/2011 03/23/2012 Hip pain 10/14/2011 03/12/2017 documented as of this encounter (statuses as of 07/17/2022) [place] [address]-15-2014 History of Past illness Narrative* Problem Noted Date Resolved Date Rotator cuff arthropathy 09/27/2013 017 Hip arthritis 10/14/2011 03/23/2012 Hip pain 10/14/2011 03/12/2017 documented as of this encounter (statuses as of 08/18/2022) [facility] of Past illness Narrative* Problem Noted Date Resolved Date Rotator cuff arthropathy 09/27/2013 017 Hip arthritis 10/14/2011 03/23/2012 Hip pain 10/14/2011 03/12/2017 documented as of this encounter (statuses as of 12/08/2022) [place] [address]-15-2014 History of Past illness Narrative* Problem Noted Date Resolved Date Rotator cuff arthropathy 09/27/2013 017 Muscle weakness (generalized) 01/22/2012 Hip arthritis 10/14/2011 03/23/2012 Hip pain 10/14/2011 03/12/2017 documented as of this encounter (statuses as of 12/11/2022) [place] [address]-15-2014 History of Past illness Narrative* Problem Noted Date Resolved Date Rotator cuff arthropathy 09/27/2013 017 Muscle weakness (generalized) 01/22/2012 Hip arthritis 10/14/2011 03/23/2012 Hip pain 10/14/2011 03/12/2017 documented as of this encounter (statuses as of 12/16/2022) [facility] of Past illness Narrative* Problem Noted Date Resolved Date Rotator cuff arthropathy 09/27/2013 017 Muscle weakness (generalized) 01/22/2012 Hip arthritis 10/14/2011 03/23/2012 Hip pain 10/14/2011 03/12/2017 documented as of this encounter (statuses as of 12/31/2022) [facility] of Past illness Narrative* Problem Noted Date Resolved Date Rotator cuff arthropathy 09/27/2013 017 Muscle weakness (generalized) 01/22/2012 Hip arthritis 10/14/2011 03/23/2012 Hip pain 10/14/2011 03/12/2017 documented as of this encounter (statuses as of 01/01/2023) [facility] of [facility] illness Narrative* Problem Noted Date Resolved Date Rotator cuff arthropathy 09/27/2013 017 Muscle weakness (generalized) 01/22/2012 Hip arthritis 10/14/2011 03/23/2012 Hip pain 10/14/2011 03/12/2017 documented as of this encounter (statuses as of 01/02/2023) [facility] of Past illness Narrative* Problem Noted Date Resolved Date Rotator cuff arthropathy 09/27/2013 017 Muscle weakness (generalized) 01/22/2012 Hip arthritis 10/14/2011 03/23/2012 Hip pain 10/14/2011 03/12/2017 documented as of this encounter (statuses as of 01/06/2023) [facility] of Past illness Narrative* Problem Noted Date Resolved Date Rotator cuff arthropathy 09/27/2013 017 Muscle weakness (generalized) 01/22/2012 Hip arthritis 10/14/2011 03/23/2012 Hip pain 10/14/2011 03/12/2017 documented as of this encounter (statuses as of 01/07/2023) [address]15-2014 History of Past illness Narrative* Problem Noted Date Resolved Date Rotator cuff arthropathy 09/27/2013 017 Muscle weakness (generalized) 01/22/2012 Hip arthritis 10/14/2011 03/23/2012 Hip pain 10/14/2011 03/12/2017 documented as of this encounter (statuses as of 01/12/2023) [facility] of Past illness Narrative* Problem Noted Date Resolved Date Rotator cuff arthropathy 09/27/2013 017 Muscle weakness (generalized) 01/22/2012 Hip arthritis 10/14/2011 03/23/2012 Hip pain 10/14/2011 03/12/2017 documented as of this encounter (statuses as of 01/15/2023) [facility] of [facility] illness Narrative* Problem Noted Date Resolved Date Rotator cuff arthropathy 09/27/2013 017 Muscle weakness (generalized) 01/22/2012 Hip arthritis 10/14/2011 03/23/2012 Hip pain 10/14/2011 03/12/2017 documented as of this encounter (statuses as of 01/16/2023) [facility] of [facility] illness Narrative* Problem Noted Date Resolved Date Rotator cuff arthropathy 09/27/2013 017 Muscle weakness (generalized) 01/22/2012 Hip arthritis 10/14/2011 03/23/2012 Hip pain 10/14/2011 03/12/2017 documented as of this encounter (statuses as of 01/21/2023) [facility] of Past illness Narrative* Problem Noted Date Resolved Date Rotator cuff arthropathy 09/27/2013 017 Muscle weakness (generalized) 01/22/2012 Hip arthritis 10/14/2011 03/23/2012 Hip pain 10/14/2011 03/12/2017 documented as of this encounter (statuses as of 03/19/2023) [facility] of [facility] illness Narrative* Problem Noted Date Resolved Date Rotator cuff arthropathy 09/27/2013 017 Muscle weakness (generalized) 01/22/2012 Hip arthritis 10/14/2011 03/23/2012 Hip pain 10/14/2011 03/12/2017 documented as of this encounter (statuses as of 03/19/2023) [facility] of Past illness Narrative* Problem Noted Date Diagnosed Date Resolved Date Rotator cuff arthropathy 09/27/2013 Muscle weakness (generalized) 01/22/2012 12/11/2022 Hip arthritis 10/14/2011 03/23/2012 Hip pain 10/14/2011 03/12/2017 documented as of this encounter (statuses as of 03/30/2023) [facility] CenterEvalubeebe healthcare noteNo assessment information availableWKindred Hospital Lima Work Phone: Evaluation note* Diagnosis Arthritis of knee- Primary Unspecified arthropathy, lower leg [facility]* Diagnosis Arthritis of knee- Primary Unspecified arthropathy, lower leg documented in this encounter [facility] CenterEval[facility]* Diagnosis Primary osteoarthritis of left knee- Primary Primary localized osteoarthrosis, lower leg Primary osteoarthritis of left knee Primary localized osteoarthrosis, lower leg documented in this encounter [facility] CenterEval[facility] note* Diagnosis Pre-operative examination- Primary Preoperative examination, [...] osteoarthrosis, lower leg documented in this encounter [facility]Eval[facility]* Diagnosis Chronic pain of left knee- Primary Pain in joint, lower leg documented in this encounter [facility] CenterEval[facility] note* Diagnosis Status post left knee replacement- Primary documented in this encounter [facility]* Diagnosis Arthrofibrosis of knee joint, left- Primary Status post left knee replacement documented in this encounter [facility] Center[facility]* Diagnosis Arthrofibrosis of knee joint, left- Primary Arthrofibrosis of total knee arthroplasty, initial encounter ([facility]) documented in this encounter [facility] note* Diagnosis Status post left knee replacement- Primary Arthrofibrosis of knee joint, left documented in this encounter [facility] note* Diagnosis Pre-operative examination- Primary Preoperative [...] joint, lower leg [facility] Additional Instructions Take Tylenol as needed for pain. Use ice for the swelling in the back of your head. Return to the ER if you have worsening symptoms or further concerns/further falls.[facility] Work Phone: Patient's home Plan of [...] effects of pain / antiplatelet medications, med party planner set up and med diary and [...] Discuss all medications you are taking, even hefh-yqa-nxfflbn medicines, with your provider and pharmacist since [...] home exercise program. documented in this encounter [facility] Plan of care note* [...] get in to her walk in shower [facility] there was no room to stretch [...] home exercise program. documented in this encounter [facility]'s home Plan of care note* Visit Details Visit Type -ELECTRIC OPERATOR ROUTINE Discipline -Physical Therapy Problems Problem Description [...] home exercise program. documented in this encounter [facility]'s home Plan of care note* Visit [...] home exercise program. documented in this encounter [facility]* Visit Details Visit Type -ELECTRIC OPERATOR ROUTINE Discipline -Physical Therapy Problems Problem Description [...] home exercise program. documented in this encounter [facility] for referral (narrative)* Outpatient Procedure (Routine) - Pending Review Specialty Diagnoses / Procedures Referred By Contac t Referred To Contact [facility] [place] Diagnoses Pre-operative examination Procedures ECHO ECHO TTHRC R-T 2D W/WOM-MODE COMPL SPEC&COLR D Kristine Mason APRN.CNP [address] [id number] [facility] [place] [id number] [place] [address] Referral ID Status Reason Start Date Expiration Date Visits Requested Visits Authorized [id number] Pending Review Auto-Generat ed Referral 12/11/2022 12/11/2023 1 1 * Outpatient Procedure (Routine) - Closed Specialty Diagnoses / Procedures Referred By Contac t Referred To Contact [facility] [place] Diagnoses Pre-operative examination Procedures ECG COMPLETE ECG ROUTINE ECG W/LEAST 12 LDS W/I&R Kristine Mason APRN.TORO [address] [id number] [facility] [place] [place] [address] Referral ID Status Reason Start Date Expiration Date V isits Requested Visits Authorized [id number] Closed Auto-Generate d Referral 12/11/2022 12/11/2023 1 1 [facility] for referral (narrative)* Diagnostic Procedure Only (Routine) - Authorized Specialty Diagnoses / Procedures Referred By Contac t Referred To Contact XR IMAGING Diagnoses Chronic pain of left knee Procedures XR KNEE POST OP 3V AP/LAT/MERCHANT LEFT RADIOLOGIC EXAMINATION KNEE 3 VIEWS Dheeraj Landa APRN.CNP [address] [place] [address] Xr Imaging Referral ID Status Reason Start Date Expiration Date Visits Requested Visits Authorized [id number] Authorized Auto-Generat ed Referral 12/31/2022 01/29/2024 1 1 [facility] for referral (narrative)* Diagnostic Procedure Only (Routine) - Closed Specialty Diagnoses / Procedures Referred By Contac t Referred To Contact XR IMAGING Diagnoses Chronic pain of left knee Procedures XR KNEE POST OP 3V AP/LAT/MERCHANT LEFT RADIOLOGIC EXAMINATION KNEE 3 VIEWS Dheeraj Landa APRN.TORO [address] [place] [address] Xr Imaging [facility] Referral ID Status Reason Start Date Expiration Date V isits Requested Visits Authorized [id number] Closed Auto-Generate d Referral 12/31/2022 01/29/2024 1 1 [facility] for referral (narrative)No reason for referral information availableWKindred Hospital [facility] Work Phone: [facility] Narrative* Diagnostic Procedure Only (Routine) - Closed Specialty Diagnoses / Procedures Referred By Contac t Referred To Contact XR IMAGING Diagnoses Chronic pain of left knee Procedures XR KNEE POST OP 3V AP/LAT/MERCHANT LEFT RADIOLOGIC EXAMINATION KNEE 3 VIEWS Dheeraj Landa APRN.CNP [address] [place] [address] [place] [address] Referral ID Status Reason Start Date Expiration Date V isits Requested Visits Authorized [id number] Closed Auto-Generate d Referral 12/31/2022 01/29/2024 1 1 [facility] for visit Narrative* Diagnostic Procedure Only (Routine) - Closed Specialty Diagnoses / Procedures Referred By Contac t Referred To Contact XR IMAGING Diagnoses Left knee pain, unspecified chronicity Procedures XR KNEE GENERAL 4V AP BOTH/PA BOTH/LAT/MERC LEFT RADIOLOGIC EXAM KNEE COMPLETE 4/[place] [address] [place] [address] [place] [address] Referral ID Status Reason Start Date Expiration Date V isits Requested Visits Authorized [id number] Closed Auto-Generate d Referral 07/02/2022 08/01/2023 1 1 [facility] Summary Purpose Family History No Family History Records FoundNo Family History Records FoundNo Family History Records FoundNo Family History Records FoundNo Family History Records FoundNo Family History Records FoundNo Family History Records Found Advance Directives No Advanced Directives Records Found Advance Directive Response Recorded Date/ Time Living Will Yes May 20, 12:25pm Power of [place] Yes May 20, 2018 12:25pm Advance Directive Response Recorded Date/ Time Living Will Yes May 20 11:25am Power of [place] Yes May 20, 2018 11:25am Latest Code [...] Date/ Time Name of Medical Power of [place] NATHALY PINZON April 09, 2023 5:28pm Living Will Yes April 09, 2023 5:28pm Power of [place] Yes April 09 5:28pm Advance Directive Response Recorded Date/ Time Living Will Yes April 09, 2023 4:28pm Power of [place] Yes April 09 4:28pm Advance Directive Response Recorded Date/ Time Living Will Yes April 09, 2023 5:28pm Power of [place] Yes April 09 5:28pm Date Activated Date [...] section and content) DATE CREATED AUTHOR 03/03/2018 [facility] DATE CREATED AUTHOR AUTHOR'S ORGANIZ ATION 03/03/2018 [facility] DATE CREATED AUTHOR AUTHOR'S ORGANIZ ATION 03/08/2018 [facility] DATE CREATED AUTHOR AUTHOR'S ORGANIZ ATION 03/09/2018 [facility] DATE CREATED AUTHOR AUTHOR'S ORGANIZ ATION 03/24/2023 [facility] DATE CREATED AUTHOR AUTHOR'S ORGANIZ ATION 04/28/2023 [facility] DATE CREATED AUTHOR AUTHOR'S ORGANIZ ATION 03/03/2025 [facility] Goals (unrecognized section and content) Goals may [...] or prosecute any alcohol or drug abuse patient.[facility] Center[facility] the event this information is protected by the Federal Confidentiality of Alcohol and Drug Abuse Patient Records regulations: The Federal rules restrict any use of the information to criminally investigate or prosecute any alcohol or drug abuse patient.[facility] the event this information is protected by the Federal Confidentiality of Alcohol and Drug Abuse Patient Records regulations: The Federal rules restrict any use of the information to criminally investigate or prosecute any alcohol or drug abuse patient.[facility] CenterIn the event this information is protected by the Federal Confidentiality of Alcohol and Drug Abuse Patient Records regulations: The Federal rules restrict any use of the information to criminally investigate or prosecute any alcohol or drug abuse patient.[facility] CenterIn the event this information is protected by the Federal Confidentiality of Alcohol and Drug Abuse Patient Records regulations: The Federal rules restrict any use of the information to criminally investigate or prosecute any alcohol or drug abuse patient.[facility] CenterIn the event this information is protected by the Federal Confidentiality of Alcohol and Drug Abuse Patient Records regulations: The Federal rules restrict any use of the information to criminally investigate or prosecute any alcohol or drug abuse patient.[facility] CenterIn the event this information is protected by the Federal Confidentiality of Alcohol and Drug Abuse Patient Records regulations: The Federal rules restrict any use of the information to criminally investigate or prosecute any alcohol or drug abuse patient.[facility] CenterIn the event this information is protected by the Federal Confidentiality of Alcohol and Drug Abuse Patient Records regulations: The Federal rules restrict any use of the information to criminally investigate or prosecute any alcohol or drug abuse patient.[facility] CenterIn the event this information is protected by the Federal Confidentiality of Alcohol and Drug Abuse Patient Records regulations: The Federal rules restrict any use of the information to criminally investigate or prosecute any alcohol or drug abuse patient.[facility] CenterIn the event this information is protected by the Federal Confidentiality of Alcohol and Drug Abuse Patient Records regulations: The Federal rules restrict any use of the information to criminally investigate or prosecute any alcohol or drug abuse patient.[facility] CenterIn the event this information is protected by the Federal Confidentiality of Alcohol and Drug Abuse Patient Records regulations: The Federal rules restrict any use of the information to criminally investigate or prosecute any alcohol or drug abuse patient.[facility] CenterIn the event this information is protected by the Federal Confidentiality of Alcohol and Drug Abuse Patient Records regulations: The Federal rules restrict any use of the information to criminally investigate or prosecute any alcohol or drug abuse patient.[facility] CenterIn the event this information is protected by the Federal Confidentiality of Alcohol and Drug Abuse Patient Records regulations: The Federal rules restrict any use of the information to criminally investigate or prosecute any alcohol or drug abuse patient.[facility] CenterIn the event this information is protected by the Federal Confidentiality of Alcohol and Drug Abuse Patient Records regulations: The Federal rules restrict any use of the information to criminally investigate or prosecute any alcohol or drug abuse patient.[facility] CenterIn the event this information is protected by the Federal Confidentiality of Alcohol and Drug Abuse Patient Records regulations: The Federal rules restrict any use of the information to criminally investigate or prosecute any alcohol or drug abuse patient.[facility] CenterIn the event this information is protected by the Federal Confidentiality of Alcohol and Drug Abuse Patient Records regulations: The Federal rules restrict any use of the information to criminally investigate or prosecute any alcohol or drug abuse patient.[facility] CenterIn the event this information is protected by the Federal Confidentiality of Alcohol and Drug Abuse Patient Records regulations: The Federal rules restrict any use of the information to criminally investigate or prosecute any alcohol or drug abuse patient.[facility] CenterIn the event this information is protected by the Federal Confidentiality of Alcohol and Drug Abuse Patient Records regulations: The Federal rules restrict any use of the information to criminally investigate or prosecute any alcohol or drug abuse patient.[facility] CenterIn the event this information is protected by the Federal Confidentiality of Alcohol and Drug Abuse Patient Records regulations: The Federal rules restrict any use of the information to criminally investigate or prosecute any alcohol or drug abuse patient.[facility] Reason for Visit (unrecogniz ed section and content) Reason Comments New Knee Pain Reason Comments New Pain Reason Comments Consult Reason Comments Pre-Op Teaching Specialty Diagnoses / Procedures Referred By Vicente hayward Referred To Contact [facility] Home Care [address] [place] [id number] Referral ID Status Reason Start Date Expiration Date Visits Re quested Visits Authorized [id number] 1 1 Reason Comments Home Care Dressing removal Reason Comments Home Care Out patient PT Reason Comments Established Patient Follow Up Post Op Knee Replacement Care Teams (unrecognized sec tion and content) Telecommunications Manager Relationship Specialty Start Date End Date David Santana MD [address] [place] [address] PCP - General Internal Medicine 03/12/17 Telecommunications Manager Relationship Specialty Start Date End Date David Santana MD [address] [place] [address] PCP - General Internal Medicine 03/12/17 Team Status: Active Member Role Status Dates DAVID SANTANA Family Provider Active Dr. Geo Gonzalez MD Primary Care Provider Active Team Status: Inactive Member Role Status Dates Dr. Geo Gonzalez MD Primary Care Provider, Attending Provider Active Telecommunications Manager Relationship Specialty Start Date End Date David Santana MD [address] [place] [address] PCP - General Internal Medicine 03/12/17 Sissen, Arlin, [facility] [address] [place] [address] Specialty [facility] 12/08/22 02/04/23 Telecommunications Manager Relationship Specialty Start Date End Date Geo Gonzalez MD [address] [facility] [address] [place] [address] PCP - General Family Medicine 12/08/22 Sissen, Arlin, [facility] [address] [place] [address] Specialty [facility] 12/08/22 02/04/23 Telecommunications Manager Relationship Specialty Start Date End Date Geo Gonzalez MD [address] [facility] [address] [place] [address] PCP - General Family Medicine 12/08/22 Sissen, Arlin, [facility] [address] [place] [address] Specialty [facility] 12/08/22 02/04/23 Telecommunications Manager Relationship Specialty Start Date End Date Geo Gonzalez MD [address] [facility] [address] [place] [address] PCP - General Family Medicine 12/08/22 Sissen, Arlin, [facility] [address] [place] [address] Specialty [facility] 12/08/22 02/04/23 Brennan Monsivais MD [address] [place] [address] Home Care Provider Orthopedics 12/29/22 Dheeraj Landa APRN.DEVELOPING MACHINE TENDER [address] [place] [address] Referring Orthopedics 12/29/22 Kaelyn Blake, PT [address] [place] [address] Security Patrol Driver Post Acute Care 12/29/22 Telecommunications Manager Relationship Specialty Start Date End Date Geo Gonzalez MD [address] [facility] [address] [place] [address] PCP - General Family Medicine 12/08/22 Arlin Jean-Baptiste, [facility] [address] [place] [address] Specialty [facility] 12/08/22 02/04/23 Brennan Monsivais MD [address] [place], [place] [id number] Home Care Provider Orthopedics 12/29/22 Dheeraj Landa, LINDA.DEVELOPING MACHINE TENDER [address] [address] Referring Orthopedics 12/29/22 Kaelyn Blake, PT [address] [place] [address] Security Patrol Driver Post Acute Care 12/29/22 Telecommunications Manager Relationship Specialty Start Date End Date Geo Gonzalez MD [address] [facility] [address] [place] [address] PCP - General Family Medicine 12/08/22 Arlin Jean-Baptiste, [facility] [address] [place] [address] Specialty Bee [facility]opedics 12/08/22 02/04/23 Brennan Monsivais MD [address] [place], [place] [id number] Home Care Provider Orthopedics 12/29/22 Dheeraj Landa APRN.DEVELOPING MACHINE TENDER [address] [address] Referring Orthopedics 12/29/22 Kaelyn Blake, PT [address] [place] [address] Security Patrol Driver Post Acute Care 12/29/22 Telecommunications Manager Relationship Specialty Start Date End Date Geo Gonzalez MD [address] [facility] [address] [place], [place] [address] PCP - General Family Medicine 12/08/22 SisArlin swanson, P[facility] [address] [place] [address] Specialty Bee [facility] 12/08/22 02/04/23 Brennan Monsivais MD [address] [place], [place] [id number] Home Care Provider Orthopedics 12/29/22 Dheeraj Landa APRN.DEVELOPING MACHINE TENDER [address] [place] [address] Referring Orthopedics 12/29/22 Kaelyn Blake, PT [address] [place] [address] Security Patrol Driver Post Acute Care 12/29/22 Telecommunications Manager Relationship Specialty Start Date End Date Geo Gonzalez MD [address] [facility] [address] [place] [address] PCP - General Family Medicine 12/08/22 Arlin Jean-Baptiste, [facility] [address] [place] [address] Specialty [facility] 12/08/22 02/04/23 Brennan Monsivais MD [address] [place] [address] Home Care Provider Orthopedics 12/29/22 Dheeraj Landa APRN.DEVELOPING MACHINE TENDER [address] [place] [address] Referring Orthopedics 12/29/22 Kaelyn Blake, PT [address] [place] [address] Security Patrol Driver Post Acute Care 12/29/22 Telecommunications Manager Relationship Specialty Start Date End Date Geo Gonzalez MD [address] [facility] [address] [place] [address] PCP - General Family Medicine 12/08/22 Arlin Jean-Baptiste, [facility] [address] [place] [address] Specialty [facility] 12/08/22 02/04/23 Brennan Monsivais MD [address] [place], [place] [id number] Home Care Provider Orthopedics 12/29/22 Dheeraj Landa APRN.DEVELOPING MACHINE TENDER [address] [place] [address] Referring Orthopedics 12/29/22 Kaelyn Blake, PT [address] [place] [address] Security Patrol Driver Post Acute Care 12/29/22 Telecommunications Manager Relationship Specialty Start Date End Date Geo Gonzalez MD [address] [facility] [address] [place] [address] PCP - General Family Medicine 12/08/22 Arlin [facility]Baptiste, [facility] [address] [place] [address] Specialty [facility] Orthopedics 12/08/22 02/04/23 Brennan Monsivais MD [address] [place], [place] [id number] Home Care Provider Orthopedics 12/29/22 Dheeraj Landa APRN.DEVELOPING MACHINE TENDER [address] [place] [address] Referring Orthopedics 12/29/22 Kaelyn Blake, PT [address] [place] [address] Security Patrol Driver Post Acute Care 12/29/22 Telecommunications Manager Relationship Specialty Start Date End Date Geo Gonzalez MD [address] [facility] [address] [place] [address] PCP - General Family Medicine 12/08/22 Brennan Monsivais MD [address] [place] [address] Home Care Provider Orthopedics 12/29/22 Dheeraj Landa, LINDA.[address] [address] Referring Orthopedics 12/29/22 Kaelyn Blake, PT [address] [place] [address] Security Patrol Driver Post Acute Care 12/29/22 Telecommunications Manager Relationship Specialty Start Date End Date Geo Gonzalez MD [address] [facility] [address] [place] [address] PCP - General Family Medicine 12/08/22 Brennan Monsivais MD [address] [place] [address] Home Care Provider Orthopedics 12/29/22 Dheeraj Landa, PENETRATION TESTER.DEVELOPING MACHINE TENDER [address] [place] [address] Referring Orthopedics 12/29/22 Kaelyn Blake, PT [address] [place] [address] Security Patrol Driver Post Acute Care 12/29/22 Telecommunications Manager Relationship Specialty Start Date End Date Geo Gonzalez MD [address] [facility] [address] [place] [address] PCP - General Family Medicine 12/08/22 Brennan Monsivais MD [address] [place] [address] Home Care Provider Orthopedics 12/29/22 Dheeraj Landa APRN.CNP [address] [address] Referring Orthopedics 12/29/22 Kaelyn Blake, PT [address] [place] [address] Security Patrol Driver Post Acute Care 12/29/22 Team Status: Active [...] MD Attending Provider, Referring P rovider Active Telecommunications Manager Relationship Specialty Start Date End Date Geo Gonzalez MD [address] [facility] [address] [place] [address] PCP - General Family Medicine 12/08/22 Arlin Jean-Baptiste [facility] [address] [place] [address] Specialty [facility]opedics 12/08/22 02/04/23 Brennan Monsivais MD [address] [place] [address] Home Care Provider Orthopedics 12/29/22 Dheeraj Landa APRN.CNP [address] [address] Referring Orthopedics 12/29/22 TerrysatinderAta Henryon, PT [address] [place] [address] Security Patrol Driver Post Acute Care 12/29/22 04/12/23 Telecommunications Manager Relationship Specialty Start Date End Date [...] BE BASED ON THE PRIMARY CLINICAL RECORDS. [facility]. provides no warranty or guarantee of the accuracy or completeness of information in this document.
== END | disposition home or self-care (01) ==
LOC: MFPLAB 16:06
PROVIDERS: PCP Family Medicine; Referring Provider Family Medicine; Visit Provider Family Medicine
DX: M10.9 Gout, unspecified (principal)
CPT/HCPCS: 36415; 80048; 84550

== ENCOUNTER 2025-04-17 13:00 | Outpatient (RCR) | payer MEDICARE, SELFPAY ==
--- NOTE | 2025-04-10 13:58 | HP.PTEVAL ---
Patient's Visit Information Visit Information Visit Information: RADHA PHELPS is a 84 year old F referred to Physical Therapy by Dr. Geo Gonzalez MD with a diagnosis of Balance Disorder. Date of Evaluation: 04/10/25 Physical Therapist: BAKARI Barbour Visit Plan Frequency: 1-2x /Week Duration: 6 Weeks Plan: 1-2X/ week for 6 weeks for high level balance activities such as walking with head turns, picking up and putting down objects on the ground (19# grandson down on the floor), Subjective Subjective: She is having some balance issues that happen once in awhile. This happened awhile ago she was bending over and she went forward. Once in awhile she will try to bend forward. Once in awhile she will walk sideways when walking. She has had no other falls. She has no steps at home. She can do steps with a railing. She has no issue getting up from a chair. She does not feel her legs are weak. She does not get any dizziness. She lives alone. She still drives. She comes to the [employer] Her main issue is bending over. She has pain in her back for 25-30 years ago. She struggles with the ability to sleep. Objective Objective: Gait: Walks with decrease stride length and some veering at times. FGA: 19 LE MMT: R hip flex 12.5 and L 11.9 R knee ext 21.7 and L 22.3 R knee flex 13.7 and 11.8 Pt is able to heel and toe raise but needs UE assistance to keep her balance with toe raises Stepping over an object needed 1 UE support on first attempt and CGA on second attempt Picking up object from the floor X 3 (loss of balance and tries to do it fast to correct her balance). Balance/Special Test Scores Functional Gait Assessment Score: 19 % Disability: 36.6700 Lower Extremity Functional Score: 45 Goals Goal 1:: I HEP Goal Time Frame: 6-8 Weeks Goal 2:: Pt to be able to place 19# Great Grandson down on his play mat without feeling like she is going to fall over. 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 Goal Time Frame: 6-8 Weeks Goal 4:: Increase over all balance (FGA score was 19 at eval). Goal Time Frame: 6-8 Weeks Rehabilitation Potential Rehabilitation Potential: Good Anticipated Interventions Patient/Client Instruction: Educate patient on: Plan of Care For the Purpose of:: To improve nutrient delivery to tissue, To improve muscle performance and motor function, To improve ability to perform ADL's, To increase tolerance to activity/condition/position, To improve performance and independence with ADL's, To improve ability of physical actions for home/community/work/leisure, To improve gait and locomotor functions, To improve balance and To improve safety with gait Therapeutic Exercise to Include: Strength training, Endurance training, Balance training, Gait and locomotor training and Neuromotor development For the Purpose of:: To improve muscle performance and motor function, To improve ability to perform ADL's, To increase tolerance to activity/condition/position, To decrease level of supervision to perform tasks, To improve gait and locomotor functions, To improve endurance, To improve balance and To improve safety with gait Functional Training to Include: Gait training For the Purpose of:: To improve gait and locomotor functions and To improve safety with gait Text: Thank you for the opportunity to evaluate your patient. For Medicare and Medicare HMO plans, please review the plan of care and approve it. It will need to be FAXED BACK to us at [phone] for Medicare purposes. For Medicare only, by signing this I certify the plan of care. Please let me know if there are questions or concerns regarding this plan of care. Physician Signature: Date:
--- NOTE | 2025-07-18 13:18 | HP.PTDCNRP_ITS ---
Patient Information Patient Information: RADHA PHELPS was seen in my office for initial evaluation on 04/10/25. The following Plan of Care was established for this patient: POC Established Initial Frequency: 1-2x /Week Initial Duration: 6 Weeks Anticipated Interventions Patient/Client Instruction: Educate patient on: Plan of Care For the Purpose of:: To improve nutrient delivery to tissue, To improve muscle performance and motor function, To improve ability to perform ADL's, To increase tolerance to activity/condition/position, To improve performance and independence with ADL's, To improve ability of physical actions for home/community/work/leisure, To improve gait and locomotor functions, To improve balance and To improve safety with gait Therapeutic Exercise to Include: Strength training, Endurance training, Balance training, Gait and locomotor training and Neuromotor development For the Purpose of:: To improve muscle performance and motor function, To improve ability to perform ADL's, To increase tolerance to activity/condition/position, To decrease level of supervision to perform tasks, To improve gait and locomotor functions, To improve endurance, To improve balance and To improve safety with gait Functional Training to Include: Gait training For the Purpose of:: To improve gait and locomotor functions and To improve safety with gait Last Seen Last Seen: This patient was last seen in our office 04/17/25. Pertinent comments regarding their Physical therapy will appear below: DC PT At this point I will be discontinuing this patient from physical therapy. I w ould be happy to see this patient again in the future if found appropriate by the physician. Thank you! Julia Dejesus, MPT Balance/Gait/Functional tests Balance/Special Test Scores Functional Gait Assessment Score: 19 % Disability: 36.6700 Lower Extremity Functional Score: 45
== END 2025-04-17 19:00 | disposition home or self-care (01) ==
LOC: PT 13:00
PROVIDERS: PCP Family Medicine; Referring Provider Family Medicine; Visit Provider Family Medicine
DX: R26.89 Other abnormalities of gait and mobility (principal)
CPT/HCPCS: 97161; 97530